=== PATIENT | female | born 1945 | race Caucasian/White ===

== ENCOUNTER → 2016-05-22 | Outpatient (CLI) | payer MEDICARE, OTHER ==
[~2016-05-22] MED LIST: /QUIN20TA OR; /QUIN20TA PO; /THIA10TA OR; /TIOT18INH INH; ACET65TA OR; ALBU17IN INH; ASPI81TA45 OR; ASPI81TA85 PO; ATEN50TA2 OR; CALA120T2 OR; CEFT500T OR; CIPR500T3 PO; DELTASONE PO; DITR1TAB PO; DRIS50002 PO; DRISDOL PO; ESTR62CR PV; FLAG500T PO; FOLI1TAB OR; FOLI1TAB2 PO; K-TA10TA2 PO; KEFL500C7 PO; LEVA500T PO; LEVO100T OR; LEVO100T7 OR; LEVO112T2 PO; MAGN400T5 PO; NORCOBULK PO; POTA10CA2 OR; PRED10TA PO; PROA1AER INH; PULM0.5S IN; PULM90IN INH; QUIN40TA5 PO; SIMV20TA2 OR; SIMV20TA2 PO; SM I100T OR; THERGRAN PO; TIOT18INH INH; VENTOLIN ROTAHALER INH; VERA240C PO; VITA100T2 PO; VITAMIN D50000 UNT OR; ZOCO5TAB OR
[2016-05-22 14:09] LABS: ALBUMIN 3.3 GM/DL (3.2-5.2); ALBUMIN/GLOBULIN RATIO 1.32 (1.00-1.93); BILIRUBIN,TOTAL 0.4 MG/DL (0.2-1.0); CREATININE FOR GFR 1.15 MG/DL (0.55-1.02); FREE T4 1.41 NG/DL (0.76-1.46); GLOMERULAR FILTRATION RATE 49.5 (>39); POTASSIUM SERUM 4.4 MEQ/L (3.5-5.1); TOTAL PROTEIN 5.8 GM/DL (6.4-8.2)
== END ==
LOC: M SMT 08:45
PROVIDERS: ATTEND Emergency Medicine
DX: I10 Essential (primary) hypertension (principal); E78.2 Mixed hyperlipidemia; E03.9 Hypothyroidism, unspecified; E55.9 Vitamin D deficiency, unspecified

== ENCOUNTER 2016-06-03 09:09 | Emergency (ER) | payer MEDICARE, OTHER ==
[2016-06-03] MEDS ORDERED: traMADol 50 MG TAB As Ordered ONE (09:59)
--- NOTE | 2016-06-03 10:08 | EDDOCDS ---
Nurse's Notes [facility] Name: Yaritza Fernandez Age: 70 yrs Sex: Female : 1945 Arrival Date: 06/03/2016 Time: 09:09 Bed PR2 / Private MD: Andrade Kimball P. Diagnosis: Dorsalgia-Acute, Left-sided Presentation: 06/03 09:16 Presenting complaint: Patient states: Neck and shoulder pain x1 week. This is a jo3 recurring issue for pt and she was diagnosed with arthritis. Risk Factors No acute neurological deficit is noted. Adult Sepsis Screening: The patient does not have new or worsening altered mentation. Patient's respiratory rate is less than 22. Systolic blood pressure is greater than 100. Patient has a qSOFA score of 0- Negative Sepsis Screen. Suicide/Homicide risk assessment- the patient denies having any suicidal and/or homicidal ideations and does not present with any other emotional, behavioral or mental health complaints. 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 Transition of care: patient was not received from another setting of care. 09:16 Acuity: DANAY Level 4 jo3 09:16 Method Of Arrival: Walkin/Carried/Asstd jo3 Triage Assessment: 09:19 General: Appears in no apparent distress, Behavior is appropriate for age, cooperative, jo3 pleasant. Pain: Pain currently is 10 out of 10 on a pain scale. Neurological: No deficits noted. Level of Consciousness is awake, alert, Oriented to person, place, time. Respiratory: Airway is patent Respiratory effort is even, unlabored. Derm: Skin is pink, warm & dry. Musculoskeletal: Reports left neck and shoulder pain which is recurring. Historical: - Allergies: Ambien (Anaphylaxis); SULFA (SULFONAMIDES) (Hives); TETRACYCLINES (Swelling); - Home Meds: 1. aspirin 81 mg Oral TbEC 1 tab once daily 2. folic acid 1 mg Oral tab once daily 3. levothyroxine 112 mcg Oral cap once daily 4. Mag 64 64 mg oral TbER twice a day 5. oxybutynin chloride 10 mg Oral TG24 once daily 6. Premarin 0.625 mg/gram Vagl crea weekly 7. pro Air 90 mcg inhaler 2 puffs every 4 hours as needed 8. Pulmicort Turbuhaler 1 puff Inhl twice a day 9. quinapril 20 mg Oral tab once daily 10. simvastatin 20 mg Oral tab once daily 11. Spiriva with HandiHaler 18 mcg Inhl CpDv 1 cap once daily 12. ventolin HFA 90 mcg 2 puffs every 4 hours as needed 13. verapamil ER 120 mg daily 14. vit b1 100 mg [place] 15. [place] [address] u weekly every other week 16. meloxicam 15 mg oral tab 1 tab once daily - PMHx: Cancer, Thyroid; COPD; Hypercholesterolemia; Hypertension; Pneumonia; - PSHx: Appendectomy; thyroid removal; - Social history: Smoking status: Patient states former smoker of tobacco. No barriers to communication noted, The patient speaks fluent Kuwaiti, Speaks appropriately for age. - Family history: Not pertinent. - : The pt / caregiver states he / she is not on anticoagulants. Home medication list is obtained from the patient. - Exposure Risk Screening:: None identified. Screenin:02 Screening information is obtained from the patient. Fall risk: No risks identified. kr3 Assistance ADL's: requires no assistance with activities of daily living. Abuse/DV Screen: The patient / caregiver reports he/she is: not in a situation that causes fear, pain or injury. Nutritional screening: No deficits noted. home support is adequate. 10:08 Advance Directives: Currently, there is no health care proxy. kr3 Assessment: 10:01 Reassessment: Patient appears in no apparent distress at this time. Pain: Location: kr3 neck into left shoulder. Neurological: No deficits noted. Level of Consciousness is awake, alert, Gait is steady. Cardiovascular: Chest pain is denied. Respiratory: Respiratory effort is even, unlabored. Derm: Skin is pink, warm & dry. 10:01 General: Appears in no apparent distress, uncomfortable, Behavior is appropriate for ttb age, cooperative, pleasant. General: meds given per orders. Primary RN aware. Neurological: Level of Consciousness is awake, alert. Cardiovascular: Chest pain is denied. Respiratory: Airway is patent Respiratory effort is even, unlabored. Derm: Skin is normal. Musculoskeletal: Range of motion limited in left shoulder d/t pain and stiffness. Vital Signs: 09:12 BP 158 / 75 LA Sitting (auto/reg); Pulse 72 LA; Resp 18 S; Temp 96.1(O); Pulse Ox 99% mt4 on R/A; Weight 63.5 kg (R); Height 5 ft. 4 in. (162.56 cm) (R); Pain 02/19; 09:12 Body Mass Index 24.03 (63.50 kg, 162.56 cm) mt4 Vitals: 09:12 Log In Time: June 03, 2016 at 09:09. mt4 ED Course: 09:12 Patient visited by Jane Hadley. mt4 09:12 Andrade Kimball is Private Physician. mt4 09:12 Patient moved to Waiting mt4 09:14 Patient moved to Pre RCE mt4 09:18 Triage Initiated jo3 09:21 Patient visited by Sunita Rooney RN. jo3 09:21 Patient moved to Triage 1 jo3 09:24 Dilma Mcgarry PA-C is PHCP. ef1 09:24 Alton Pires MD is Attending Physician. ef1 09:24 Patient visited by Dilma Mcgarry PA-C. ef1 09:35 Patient moved to PR2 / kr3 09:45 The patient / caregiver is instructed regarding the plan of care and ED course. kr3 Accompanied by Friend, Patient has correct armband on for positive identification. 09:45 No IV's were initiated during this patient's visit. No procedures done that require kr3 assistance. EKG done. (by ED staff). Reviewed by Dilma Mcgarry PA-C. 09:55 Patient visited by Dilma Mcgarry PA-C. ef1 10:01 Andrade Kimball is Referral Physician. ef1 10:01 [facility] ef1 10:01 [facility] Payment Agreement was scanned into [email or web address] and attached to record. lg Administered Medications: 10:01 Drug: traMADol 50 mg [tramadol 50 mg tablet (1 tabs)] Route: PO; ttb 10:04 Follow up: Response: Confirmed pt not driving.; Pt left department before re-evaluation kr3 is appropriate Order Results: There are currently no results for this order. Outcome: 10:01 Discharge ordered by Provider. ef1 10:02 No special radiology studies were completed. kr3 10:07 Discharge Assessment: patient administered narcotics - yes. Pt provided with safe kr3 discharge. The following High Risk Discharge criteria are identified: None. Discharged to home ambulatory, with friend. Condition: stable. Discharge instructions given to patient, Instructed on discharge instructions, follow up and referral plans. medication usage, no driving heavy equipment, no drinking with medication, Demonstrated understanding of instructions, medications, Pt was receptive of discharge instructions/ teaching. Prescriptions given X 1. Property sent home with patient. 10:08 Patient left the ED. kr3 Signatures: Lesia Roldan, Reg Reg lg Suyapa Lentz,RN RN kr3 Sunita Rooney,RN RN syd3 Jane Hadley mt4 Dilma Mcgarry, PA-C PA-C ef1 Mayra Suárez, RN RN ttb MTDD
--- NOTE | 2016-06-03 10:08 | EDDOCDS ---
Physician Documentation [facility] Name: Yaritza Fernandez Age: 70 yrs Sex: Female : 1945 Arrival Date: 06/03/2016 Time: 09:09 Bed PR2 / Private MD: Andrade Kimball P. Disposition: 06/03/16 10:01 Discharged to Home/Self Care. Impression: Dorsalgia - Acute, Left-sided. - Condition is Stable. - Discharge Instructions: Back Pain, Adult, [id number]. - Prescriptions for Tramadol 50 mg Oral Tablet - take 0.5 tablet by ORAL route 4 times per day MDD: 2 tabs; 10 tablet. - Medication Reconciliation, Local Pharmacy Hours form. - Follow up: Andrade Kimball; When: 1 - 2 days; Reason: Recheck today's complaints, Continuance of care. Follow up: Emergency Department; Reason: Worsening of conditions. Follow up: [facility]; When: Call to arrange an appointment; Reason: Further diagnostic work-up, Recheck today's complaints, Continuance of care. - Problem is new. - Symptoms have improved. Historical: - Allergies: Ambien (Anaphylaxis); SULFA (SULFONAMIDES) (Hives); TETRACYCLINES (Swelling); - Home Meds: 1. aspirin 81 mg Oral TbEC 1 tab once daily 2. folic acid 1 mg Oral tab once daily 3. levothyroxine 112 mcg Oral cap once daily 4. Mag 64 64 mg oral TbER twice a day 5. oxybutynin chloride 10 mg Oral TG24 once daily 6. Premarin 0.625 mg/gram Vagl crea weekly 7. pro Air 90 mcg inhaler 2 puffs every 4 hours as needed 8. Pulmicort Turbuhaler 1 puff Inhl twice a day 9. quinapril 20 mg Oral tab once daily 10. simvastatin 20 mg Oral tab once daily 11. Spiriva with HandiHaler 18 mcg Inhl CpDv 1 cap once daily 12. ventolin HFA 90 mcg 2 puffs every 4 hours as needed 13. verapamil ER 120 mg daily 14. vit b1 100 mg [place]. [place] [address] u weekly every other week 16. meloxicam 15 mg oral tab 1 tab once daily - PMHx: Cancer, Thyroid; COPD; Hypercholesterolemia; Hypertension; Pneumonia; - PSHx: Appendectomy; thyroid removal; - Social history: Smoking status: Patient states former smoker of tobacco. No barriers to communication noted, The patient speaks fluent Occitan, Speaks appropriately for age. - Family history: Not pertinent. - : The pt / caregiver states he / she is not on anticoagulants. Home medication list is obtained from the patient. - Exposure Risk Screening:: None identified. Vital Signs: 06/03 09:12 BP 158 / 75 LA Sitting (auto/reg); Pulse 72 LA; Resp 18 S; Temp 96.1(O); Pulse Ox 99% mt4 on R/A; Weight 63.5 kg / 139.99 lbs (R); Height 5 ft. 4 in. (162.56 cm) (R); Pain 02/19; 09:12 Body Mass Index 24.03 (63.50 kg, 162.56 cm) mt4 MDM: 09:35 ECG WITH READING ER PHYS+CARDIAG ordered. EDMS 09:50 Financial registration complete. lg 09:55 traMADol 50 mg PO once ordered. ef1 10:01 [facility] Payment Agreement was scanned into [employer] and attached to record. lg Administered Medications: 10:01 Drug: traMADol 50 mg [tramadol 50 mg tablet (1 tabs)] Route: PO; ttb 10:04 Follow up: Response: Confirmed pt not driving.; Pt left department before re-evaluation kr3 is appropriate Signatures: Dispatcher [employer] EDVA Lesia Roldan, Reg Reg lg Suyapa Lentz RN RN kr3 Sunita Rooney RN RN syd3 Dilma Mcgarry PA-C PA-C ef1 Mayra Suárez RN ttb The chart was reviewed and I authenticate all verbal orders and agree with the evaluation and treatment provided.Attachments: 10:01 [facility] Payment Agreement lg MTDD
--- NOTE | 2016-06-03 13:14 | ECGEPIP ---
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
--- NOTE | 2016-06-05 11:09 | EDDOCDS ---
Physician Documentation [facility] Name: Yaritza Fernandez Age: 70 yrs Sex: Female : 1945 Arrival Date: 06/03/2016 Time: 09:09 Bed PR2 / Private MD: Andrade Kimball P. Disposition: 06/03/16 10:01 Discharged to Home/Self Care. Impression: Dorsalgia - Acute, Left-sided. - Condition is Stable. - Discharge Instructions: Back Pain, Adult, [id number]. - Prescriptions for Tramadol 50 mg Oral Tablet - take 0.5 tablet by ORAL route 4 times per day MDD: 2 tabs; 10 tablet. - Medication Reconciliation, Local Pharmacy Hours form. - Follow up: Andrade Kimball; When: 1 - 2 days; Reason: Recheck today's complaints, Continuance of care. Follow up: Emergency Department; Reason: Worsening of conditions. Follow up: [facility]; When: Call to arrange an appointment; Reason: Further diagnostic work-up, Recheck today's complaints, Continuance of care. - Problem is new. - Symptoms have improved. Historical: - Allergies: Ambien (Anaphylaxis); SULFA (SULFONAMIDES) (Hives); TETRACYCLINES (Swelling); - Home Meds: 1. aspirin 81 mg Oral TbEC 1 tab once daily 2. folic acid 1 mg Oral tab once daily 3. levothyroxine 112 mcg Oral cap once daily 4. Mag 64 64 mg oral TbER twice a day 5. oxybutynin chloride 10 mg Oral TG24 once daily 6. Premarin 0.625 mg/gram Vagl crea weekly 7. pro Air 90 mcg inhaler 2 puffs every 4 hours as needed 8. Pulmicort Turbuhaler 1 puff Inhl twice a day 9. quinapril 20 mg Oral tab once daily 10. simvastatin 20 mg Oral tab once daily 11. Spiriva with HandiHaler 18 mcg Inhl CpDv 1 cap once daily 12. ventolin HFA 90 mcg 2 puffs every 4 hours as needed 13. verapamil ER 120 mg daily 14. vit b1 100 mg [place] 15. [place] [address] u weekly every other week 16. meloxicam 15 mg oral tab 1 tab once daily - PMHx: Cancer, Thyroid; COPD; Hypercholesterolemia; Hypertension; Pneumonia; - PSHx: Appendectomy; thyroid removal; - Social history: Smoking status: Patient states former smoker of tobacco. No barriers to communication noted, The patient speaks fluent Yoruba, Speaks appropriately for age. - Family history: Not pertinent. - : The pt / caregiver states he / she is not on anticoagulants. Home medication list is obtained from the patient. - Exposure Risk Screening:: None identified. Vital Signs: 06/03 09:12 BP 158 / 75 LA Sitting (auto/reg); Pulse 72 LA; Resp 18 S; Temp 96.1(O); Pulse Ox 99% mt4 on R/A; Weight 63.5 kg / 139.99 lbs (R); Height 5 ft. 4 in. (162.56 cm) (R); Pain 02/19; 09:12 Body Mass Index 24.03 (63.50 kg, 162.56 cm) mt4 MDM: 09:35 ECG WITH READING ER PHYS+CARDIAG ordered. EDMS 09:50 Financial registration complete. lg 09:55 traMADol 50 mg PO once ordered. ef1 10:01 [facility] Payment Agreement was scanned into [employer] and attached to record. lg 17:21 ECG/EKG was scanned into [employer] and attached to record. kf3 20:09 T-Sheet-- Draft Copy was scanned into [employer] and attached to record. klr Administered Medications: 10:01 Drug: traMADol 50 mg [tramadol 50 mg tablet (1 tabs)] Route: PO; ttb 10:04 Follow up: Response: Confirmed pt not driving.; Pt left department before re-evaluation kr3 is appropriate Signatures: Dispatcher [employer] EDMD Lesia Roldan, Reg Reg lg Suyapa LentzRN RN kr3 Sunita Rooney RN RN syd3 Jimi Powell, Reg Reg kf3 Dilma Mcgarry PA-C PA-C ef1 Gail Darden Teresa RN ttb The chart was reviewed and I authenticate all verbal orders and agree with the evaluation and treatment provided.Attachments: 10:01 [facility] Payment Agreement lg 17:21 ECG/EKG kf3 20:09 T-Sheet-- Draft Copy klr Chart Complete MTDD
--- NOTE | 2016-06-05 11:09 | EDDOCDS ---
Physician Documentation [facility] Name: Yaritza Fernandez Age: 70 yrs Sex: Female : 1945 Arrival Date: 06/03/2016 Time: 09:09 Bed PR2 / Private MD: Andrade Kimball P. Disposition: 06/03/16 10:01 Discharged to Home/Self Care. Impression: Dorsalgia - Acute, Left-sided. - Condition is Stable. - Discharge Instructions: Back Pain, Adult, [id number]. - Prescriptions for Tramadol 50 mg Oral Tablet - take 0.5 tablet by ORAL route 4 times per day MDD: 2 tabs; 10 tablet. - Medication Reconciliation, Local Pharmacy Hours form. - Follow up: Andrade Kimball; When: 1 - 2 days; Reason: Recheck today's complaints, Continuance of care. Follow up: Emergency Department; Reason: Worsening of conditions. Follow up: [facility]; When: Call to arrange an appointment; Reason: Further diagnostic work-up, Recheck today's complaints, Continuance of care. - Problem is new. - Symptoms have improved. Historical: - Allergies: Ambien (Anaphylaxis); SULFA (SULFONAMIDES) (Hives); TETRACYCLINES (Swelling); - Home Meds: 1. aspirin 81 mg Oral TbEC 1 tab once daily 2. folic acid 1 mg Oral tab once daily 3. levothyroxine 112 mcg Oral cap once daily 4. Mag 64 64 mg oral TbER twice a day 5. oxybutynin chloride 10 mg Oral TG24 once daily 6. Premarin 0.625 mg/gram Vagl crea weekly 7. pro Air 90 mcg inhaler 2 puffs every 4 hours as needed 8. Pulmicort Turbuhaler 1 puff Inhl twice a day 9. quinapril 20 mg Oral tab once daily 10. simvastatin 20 mg Oral tab once daily 11. Spiriva with HandiHaler 18 mcg Inhl CpDv 1 cap once daily 12. ventolin HFA 90 mcg 2 puffs every 4 hours as needed 13. verapamil ER 120 mg daily 14. vit b1 100 mg [place]. [place] [address] u weekly every other week 16. meloxicam 15 mg oral tab 1 tab once daily - PMHx: Cancer, Thyroid; COPD; Hypercholesterolemia; Hypertension; Pneumonia; - PSHx: Appendectomy; thyroid removal; - Social history: Smoking status: Patient states former smoker of tobacco. No barriers to communication noted, The patient speaks fluent Swedish, Speaks appropriately for age. - Family history: Not pertinent. - : The pt / caregiver states he / she is not on anticoagulants. Home medication list is obtained from the patient. - Exposure Risk Screening:: None identified. Vital Signs: 06/03 09:12 BP 158 / 75 LA Sitting (auto/reg); Pulse 72 LA; Resp 18 S; Temp 96.1(O); Pulse Ox 99% mt4 on R/A; Weight 63.5 kg / 139.99 lbs (R); Height 5 ft. 4 in. (162.56 cm) (R); Pain 02/19; 09:12 Body Mass Index 24.03 (63.50 kg, 162.56 cm) mt4 MDM: 09:35 ECG WITH READING ER PHYS+CARDIAG ordered. EDMS 09:50 Financial registration complete. lg 09:55 traMADol 50 mg PO once ordered. ef1 10:01 [facility] Payment Agreement was scanned into [employer] and attached to record. lg 17:21 ECG/EKG was scanned into [employer] and attached to record. kf3 20:09 T-Sheet-- Draft Copy was scanned into [employer] and attached to record. klr Administered Medications: 10:01 Drug: traMADol 50 mg [tramadol 50 mg tablet (1 tabs)] Route: PO; ttb 10:04 Follow up: Response: Confirmed pt not driving.; Pt left department before re-evaluation kr3 is appropriate Signatures: Dispatcher [employer] EDDE Lesia Roldan, Reg Reg lg Suyapa LentzRN RN kr3 Sunita Rooney RN RN syd3 Jimi Powell, Reg Reg kf3 Dilma Mcgarry PA-C PA-C ef1 Gail Darden Teresa RN ttb The chart was reviewed and I authenticate all verbal orders and agree with the evaluation and treatment provided.Attachments: 10:01 [facility] Payment Agreement lg 17:21 ECG/EKG kf3 20:09 T-Sheet-- Draft Copy klr Chart Complete MTDD
--- NOTE | 2016-06-05 11:09 | EDDOCDS ---
Nurse's Notes [facility] [place] [facility] Name: Yaritza Fernandez Age: 70 yrs Sex: Female : 1945 Arrival Date: 06/03/2016 Time: 09:09 Bed PR2 / Private MD: Andrade Kimball P. Diagnosis: Dorsalgia-Acute, Left-sided Presentation: 06/03 09:16 Presenting complaint: Patient states: Neck and shoulder pain x1 week. This is a jo3 recurring issue for pt and she was diagnosed with arthritis. Risk Factors No acute neurological deficit is noted. Adult Sepsis Screening: The patient does not have new or worsening altered mentation. Patient's respiratory rate is less than 22. Systolic blood pressure is greater than 100. Patient has a qSOFA score of 0- Negative Sepsis Screen. Suicide/Homicide risk assessment- the patient denies having any suicidal and/or homicidal ideations and does not present with any other emotional, behavioral or mental health complaints. 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 Transition of care: patient was not received from another setting of care. 09:16 Acuity: DANAY Level 4 jo3 09:16 Method Of Arrival: Walkin/Carried/Asstd jo3 Triage Assessment: 09:19 General: Appears in no apparent distress, Behavior is appropriate for age, cooperative, jo3 pleasant. Pain: Pain currently is 10 out of 10 on a pain scale. Neurological: No deficits noted. Level of Consciousness is awake, alert, Oriented to person, place, time. Respiratory: Airway is patent Respiratory effort is even, unlabored. Derm: Skin is pink, warm & dry. Musculoskeletal: Reports left neck and shoulder pain which is recurring. Historical: - Allergies: Ambien (Anaphylaxis); SULFA (SULFONAMIDES) (Hives); TETRACYCLINES (Swelling); - Home Meds: 1. aspirin 81 mg Oral TbEC 1 tab once daily 2. folic acid 1 mg Oral tab once daily 3. levothyroxine 112 mcg Oral cap once daily 4. Mag 64 64 mg oral TbER twice a day 5. oxybutynin chloride 10 mg Oral TG24 once daily 6. Premarin 0.625 mg/gram Vagl crea weekly 7. pro Air 90 mcg inhaler 2 puffs every 4 hours as needed 8. Pulmicort Turbuhaler 1 puff Inhl twice a day 9. quinapril 20 mg Oral tab once daily 10. simvastatin 20 mg Oral tab once daily 11. Spiriva with HandiHaler 18 mcg Inhl CpDv 1 cap once daily 12. ventolin HFA 90 mcg 2 puffs every 4 hours as needed 13. verapamil ER 120 mg daily 14. vit b1 100 mg daily 15. [place] [id number] u weekly every other week 16. meloxicam 15 mg oral tab 1 tab once daily - PMHx: Cancer, Thyroid; COPD; Hypercholesterolemia; Hypertension; Pneumonia; - PSHx: Appendectomy; thyroid removal; - Social history: Smoking status: Patient states former smoker of tobacco. No barriers to communication noted, The patient speaks fluent Indonesian, Speaks appropriately for age. - Family history: Not pertinent. - : The pt / caregiver states he / she is not on anticoagulants. Home medication list is obtained from the patient. - Exposure Risk Screening:: None identified. Screenin:02 Screening information is obtained from the patient. Fall risk: No risks identified. kr3 Assistance ADL's: requires no assistance with activities of daily living. Abuse/DV Screen: The patient / caregiver reports he/she is: not in a situation that causes fear, pain or injury. Nutritional screening: No deficits noted. home support is adequate. 10:08 Advance Directives: Currently, there is no health care proxy. kr3 Assessment: 10:01 Reassessment: Patient appears in no apparent distress at this time. Pain: Location: kr3 neck into left shoulder. Neurological: No deficits noted. Level of Consciousness is awake, alert, Gait is steady. Cardiovascular: Chest pain is denied. Respiratory: Respiratory effort is even, unlabored. Derm: Skin is pink, warm & dry. 10:01 General: Appears in no apparent distress, uncomfortable, Behavior is appropriate for ttb age, cooperative, pleasant. General: meds given per orders. Primary RN aware. Neurological: Level of Consciousness is awake, alert. Cardiovascular: Chest pain is denied. Respiratory: Airway is patent Respiratory effort is even, unlabored. Derm: Skin is normal. Musculoskeletal: Range of motion limited in left shoulder d/t pain and stiffness. Vital Signs: 09:12 BP 158 / 75 LA Sitting (auto/reg); Pulse 72 LA; Resp 18 S; Temp 96.1(O); Pulse Ox 99% mt4 on R/A; Weight 63.5 kg (R); Height 5 ft. 4 in. (162.56 cm) (R); Pain 02/19; 09:12 Body Mass Index 24.03 (63.50 kg, 162.56 cm) mt4 Vitals: 09:12 Log In Time: June 03, 2016 at 09:09. mt4 ED Course: 09:12 Patient visited by Jane Hadley. mt4 09:12 Andrade Kimball is Private Physician. mt4 09:12 Patient moved to Waiting mt4 09:14 Patient moved to Pre RCE mt4 09:18 Triage Initiated jo3 09:21 Patient visited by Sunita Rooney RN. jo3 09:21 Patient moved to Triage 1 jo3 09:24 Dilma Mcgarry PA-C is PHCP. ef1 09:24 Alton Pires MD is Attending Physician. ef1 09:24 Patient visited by Dilma Mcgarry PA-C. ef1 09:35 Patient moved to PR2 / kr3 09:45 The patient / caregiver is instructed regarding the plan of care and ED course. kr3 Accompanied by Friend, Patient has correct armband on for positive identification. 09:45 No IV's were initiated during this patient's visit. No procedures done that require kr3 assistance. EKG done. (by ED staff). Reviewed by Dilma Mcgarry PA-C. 09:55 Patient visited by Dilma Mcgarry PA-C. ef1 10:01 Andrade Kimball is Referral Physician. ef1 10:01 [facility]. ef1 10:01 [facility] Payment Agreement was scanned into [employer]way and attached to record. lg 13:43 EKG-ADULT Returned. EDMS 17:21 ECG/EKG was scanned into [employer] and attached to record. kf3 20:09 T-Sheet-- Draft Copy was scanned into [employer]way and attached to record. klr Administered Medications: 10:01 Drug: traMADol 50 mg [tramadol 50 mg tablet (1 tabs)] Route: PO; ttb 10:04 Follow up: Response: Confirmed pt not driving.; Pt left department before re-evaluation kr3 is appropriate Order Results: Radiology Order: EKG-ADULT Test: EKG-ADULT REASON FOR EXAMINATION: Left arm/neck pain; Stationary ECG Study; [facility] - ED; ; Test Date: 2016-06-03; Pat Name: YARITZA FERNANDEZ Department:; Room: -; Gender: F Change Manager: blayne; : 1945 Requested By: Dilma Mcgarry PA-C; Order Number: [id number] Reading MD: Grace Antonio; Measurements; Intervals Stearns; Rate: 66 P: 73; NH: 153 QRS: 74; QRSD: 78 T: 73; QT: 366; QTc: 383; Interpretive Statements; SINUS RHYTHM; LOW QRS VOLTAGE IN EXTREMITY LEADS; PRWP; NSTTW ABNORMALITY; DECREASED ECTOPY/DECREASED RATE 12/26/15; Electronically Signed On 06-03-2016 13:14:36 EST by Grace Antonio; Outcome: 10:01 Discharge ordered by Provider. ef1 10:02 No special radiology studies were completed. kr3 10:07 Discharge Assessment: patient administered narcotics - yes. Pt provided with safe kr3 discharge. The following High Risk Discharge criteria are identified: None. Discharged to home ambulatory, with friend. Condition: stable. Discharge instructions given to patient, Instructed on discharge instructions, follow up and referral plans. medication usage, no driving heavy equipment, no drinking with medication, Demonstrated understanding of instructions, medications, Pt was receptive of discharge instructions/ teaching. Prescriptions given X 1. Property sent home with patient. 10:08 Patient left the ED. kr3 Signatures: Dispatcher [employer] EDLesia Cagle, Reg Reg lg Suyapa Lentz RN RN kr3 Sunita Rooney RN RN syd3 Jimi Powell, Reg Reg kf3 Jane Hadley mt4 Dilma Mcgarry PA-C PA-C ef1 Mayra Sáurez RN RN ttb Redder, Kathie klr Chart Complete MTDD
--- NOTE | 2016-06-11 08:33 | IPN ---
DATE: 06/10/2016 The patient is seen and examined at the bedside. Chart has been reviewed. The patient's blood pressure remains decreased at 82 systolic. She otherwise denies any lightheadedness, dizziness, palpitations, near syncopal episodes. No chest pain, pressure or tightness. Despite 2.5 liters of IV fluids, the patient's urine output has continued to be concentrated. She has had no fever or chills overnight. Denies any cough. Complains of dysuria, urgency, frequency, prior history of recurrent urinary tract infection with Escherichia (E) coli and Klebsiella resistant to ampicillin and nitrofurantoin, sensitive to Levaquin and ceftriaxone. Current temperature is 96.6, pulse 90, respiratory rate 20, previous blood pressure was 82/52. Responding to 2.5 liters of IV fluids, currently 121/70. 92% on room air. GENERAL: The patient is awake, alert, oriented. Answering questions appropriately. No respiratory distress. Lying with one pillow on the bed. The patient has no jugular venous distention (JVD). No thyromegaly. LUNGS: Clear to auscultation with no wheezing, rales or rhonchi. HEART: S1, S2. Irregular. ABDOMEN: Soft, nontender, nondistended. EXTREMITIES: No pitting edema. LABORATORY DATA: CBC and metabolic panel have been reviewed. ASSESSMENT AND PLAN: This is a 70-year-old female with a history of recurrent urinary tract infections with Escherichia (E) coli and Klebsiella, chronic obstructive pulmonary disease (COPD), hypothyroidism, cor pulmonale, hyperlipidemia, hypertension, mild to moderate mitral valve insufficiency, history of multiple focal atrial tachycardia, questionable paroxysmal atrial fibrillation, tonsillectomy, adenoidectomy, thyroidectomy, appendectomy, who presented to the emergency room with complaints of "not feeling well." She was found to have acute on chronic renal failure, as well as abnormal urinalysis. THe patient was seen by primary care physician on and given Levaquin for urinary tract infection. Blood pressure in the office at that time was 88/44. Current issues are: 1. Sepsis with tachycardia, urinary tract infection, hypotension. The patient is fluid resuscitated with normal saline at the bedside and appears to be improving well with improving creatinine and blood pressure. Treat underlying condition with ceftriaxone for urinary tract infection. Await blood cultures, sputum culture. Chest x-ray is unremarkable for acute infiltrate. 2. Recurrent urinary tract infection, prior urine culture showing Klebsiella and E coli sensitive to ceftriaxone. Continue with the same treatment. Full supportive care with intravenous fluids. 3. Hypotension secondary to sepsis from urinary tract infection. Rule out other etiology. TSH is normal. The patient is dehydrated, therefore IV fluids have been given and creatinine is improving. Treat for an infection for severe sepsis secondary to infection, as well as check cardiac markers and 2-D echo regarding hypotension. Does not appear to have any acute ischemia on EKG. Troponin remains negative. No upper GI bleed, hematemesis or coffee ground emesis complaints. 4. Acute on chronic renal failure secondary to severe sepsis and dehydration. Currently, on intravenous fluid. If needed, vasopressors. Central line has been requested. Dr. Christian has been consulted. 5. Dehydration. 6. Hypernatremia most likely secondary to dehydration. We will change to intravenous fluids to half normal saline if persistently hypernatremic. 7. Metabolic acidosis, most likely secondary to renal failure and infection. 8. Abnormal EKG. Recheck 12-lead EKG. Most likely MAT due to chronic obstructive pulmonary disease (COPD). No acute respiratory distress. 9. COPD. No respiratory complaints. 10. Cor pulmonale. Currently euvolemic. Monitor for decompensation due to recent IV fluid hydration. 11. Hypothyroidism. Continue Synthroid. 12. Hyperlipidemia. Continue on antihyperlipidemics. 13. Incidental finding of splenomegaly. check hepatitis, monoscreen, cristina, antismith ab, dsdna ab, cmv, liver us w doppler to rule out thrombosis, ct chest rule out adenopathy, lymphoma, sarcoids, gary level. per dr shun neal, oncologist chain maker loom control, may benefit from flow cytometry and bone marrow biopsy as outpatient. no inpatient need for hematology consult. will refer to hematology at discharge. MINOO
== END 2016-06-03 10:08 | disposition home or self-care (01) ==
LOC: M ED 09:09
DX: M54.2 Cervicalgia (principal); M54.6 Pain in thoracic spine; J44.9 Chronic obstructive pulmonary disease, unspecified; E78.00 Pure hypercholesterolemia, unspecified; I10 Essential (primary) hypertension; Z87.891 Personal history of nicotine dependence; Z85.850 Personal history of malignant neoplasm of thyroid; Z79.82 Long term (current) use of aspirin; Z79.899 Other long term (current) drug therapy; Z88.1 Allergy status to other antibiotic agents; Z88.2 Allergy status to sulfonamides; Z88.8 Allergy status to other drugs, medicaments and biological substances

== ENCOUNTER 2016-06-09 17:10 | Inpatient (IN) | payer MEDICARE, OTHER ==
[~2016-06-09] VITALS: Ht 162.6 cm; Wt 75.3 kg
[2016-06-09 17:56] LABS: BASO % 0.1 % (0.0-1.0); EOS % 0.1 % (0.0-3.0); LARGE UNSTAINED CELL # 0.6 K/mm3 (0.0-0.4); LARGE UNSTAINED CELL % 4.8 % (0.0-4.0); LYMPH # 1.3 K/mm3 (1.5-4.5); LYMPH % 10.7 % (24.0-44.0); MEAN CORPUSCULAR HEMOGLOBIN 30.4 pg (27.0-33.0); MEAN CORPUSCULAR HGB CONC 32.4 g/dl (32.0-36.5); MEAN CORPUSCULAR VOLUME 93.8 fl (80.0-96.0); MONO # 0.7 K/mm3 (0.0-0.8); NEUTROPHILS # 9.5 K/mm3 (1.8-7.7); NEUTROPHILS % 78.2 % (36.0-66.0); RED CELL DISTRIBUTION WIDTH 13.4 % (11.5-14.5); WHITE BLOOD COUNT 12.1 K/mm3 (4.0-10.0)
[2016-06-09 18:21] LABS: ALBUMIN/GLOBULIN RATIO 1.07 (1.00-1.93); ALKALINE PHOSPHATASE 52 U/L (45-117); ALT/SGPT 9 U/L (12-78); ANION GAP 14 MEQ/L (8-16); AST/SGOT 3 U/L (15-37); BILIRUBIN,DIRECT < 0.1 MG/DL (0.0-0.2); BILIRUBIN,TOTAL 0.3 MG/DL (0.2-1.0); BLOOD UREA NITROGEN 112 MG/DL (7-18); CALCIUM LEVEL 10.2 MG/DL (8.8-10.2); CARBON DIOXIDE LEVEL 18 MEQ/L (21-32); CHLORIDE LEVEL 111 MEQ/L (98-107); CREATININE FOR GFR 2.45 MG/DL (0.55-1.02); GLOMERULAR FILTRATION RATE 20.7 (>39); GLUCOSE, FASTING 140 MG/DL (83-110); POTASSIUM SERUM 3.6 MEQ/L (3.5-5.1); SODIUM LEVEL 143 MEQ/L (136-145); TOTAL PROTEIN 5.8 GM/DL (6.4-8.2)
[2016-06-09 18:23] LABS: PLATELET COUNT, AUTOMATED 82 k/mm3 (150-450)
[2016-06-09] MEDS: BUDESONIDE 0.5 MG/2 ML INHALATION SUSPENSION INH SCH (20:00)
--- NOTE | 2016-06-09 20:00 | REPUSA ---
CLINICAL HISTORY: Abdominal pain. TECHNIQUE: Multiple axial, sagittal and coronal CT images were obtained through the abdomen and pelvi s without administration of oral or IV contrast material. COMMENTS: The liver is of uniform attenuation without mass or defect. There is no intra or extrahepatic biliary ductal dilatation. The spleen is massively enlarged. The gallbladder is within normal limits. The pa ncreas is of normal contour and attenuation characteristics. There is no evidence of adrenal mass. The kidneys are normal in size, shape and configuration. No renal or ureteral calculi are identified. There is no hydroureter or hydronephrosis. There is no evidence for appendicitis. There is no bowel wall thickening. No evidence for small or la rge bowel obstruction. There is no evidence of abdominal ascites or lymphadenopathy. There is no evidence of intrinsic or extrinsic bladder mass. There is no pelvic ascites or lymphadeno jorge. The uterus and ovaries are atrophic. Images of the lung bases show no evidence of pleural or parenchymal mass. There are no pleural effusi ons. The bony structures are free of lytic or blastic lesions. Multilevel degenerative changes are seen in volving the thoracolumbar spine. Scattered calcifications are seen involving the aorta and major branches compatible with atherosclero sis. IMPRESSION: Massive splenomegaly. Otherwise unremarkable study Thank you for your kind referral of this patient.
[2016-06-09] MEDS ORDERED: ONDANSETRON 4MG/2ML VIAL (J2405) IV PRN (21:15)
[2016-06-09] MEDS ORDERED: PERCOCET 5MG/325MG TAB PO PRN (21:15)
[2016-06-09] MEDS ORDERED: ONDANSETRON 4 MG TAB (S0181) PO PRN (21:15)
[2016-06-09 21:54] LABS: INR 1.02
[2016-06-09 21:57] VITALS: BP 118/69
[2016-06-09] MEDS ORDERED: ALBUTEROL 90 MCG/ACT 8GM HFA INHALER INH PRN (22:30)
[2016-06-09] MEDS ORDERED: cefTRIAXone SOD 1 GM VIAL (J0696) As Ordered ONE (22:48)
[2016-06-09] MEDS ORDERED: APIXABAN 5 MG TAB (ELIQUIS) As Ordered ONE (22:48)
[2016-06-09] MEDS: cefTRIAXone SOD 1 GM in D5W MINI-BAG PLUS 50 ML IV SCH (22:53)
[2016-06-09] MEDS: NS 1,000 ML IV SCH (22:53)
[2016-06-09] MEDS: APIXABAN 2.5 MG TAB (ELIQUIS) PO SCH (22:54)
[2016-06-09] MEDS ORDERED: APIXABAN 2.5 MG TAB (ELIQUIS) As Ordered ONE (22:54)
--- NOTE | 2016-06-09 22:55 | HPEPDOC ---
Medical History and Physical Date of Admission Jun 09, 2016 at 21:06 History and Physical HISTORY AND PHYSICAL Date of admission: 06/09/2016 PCP: Andrade Kimball Chief complaint: Just didn't feel well HPI: 70-year-old female with COPD, hypothyroidism, hyperlipidemia, hypertension , cor pulmonale, mild to moderate mitral valve insufficiency, history of atrial tachycardia with questionable prior A. fib who presented to the emergency department because she just wasn't feeling well. She states that she has been feeling poorly for a week or so now, and saw her primary care physician on . She states at that time, he gave her Levaquin for urinary infection. She states that while she was in his office, her blood pressure was 88/44. She states that since then, she hasn't felt very well and has not had much to eat or drink. She however, denies any diarrhea or vomiting. She states that she just wasn't getting better, and today reached the point where she felt like she couldn't walk well because she felt so poorly, which is why she decided to come to the emergency department today. She also states that she noticed she hadn't urinated all day long. Past medical history: COPD, hypothyroidism, hyperlipidemia, hypertension, cor pulmonale, mild to moderate mitral valve insufficiency, history of atrial tachycardia with questionable prior A. fib Past surgical history: Tonsillectomy and adenoidectomy, thyroidectomy, appendectomy Family history: Colorectal cancer, lupus Social history: Patient states that she quit smoking approximately 10 years ago. She denies any drug use. She does state that she drinks a couple glasses of wine nightly, but has not had any since . She states that she has never before had any withdrawal symptoms when she stopped drinking for several days. Allergies: Sulfa, tetracycline, Ambien Review of systems: General: Negative for fever and chills Eyes: Negative for vision changes. Positive for ocular discharge ENT: Negative for sore throat and nose bleed Cardiovascular: Negative for chest pain and palpitations Respiratory: Positive for cough and shortness of breath GI: Positive for nausea and constipation. Negative for vomiting and diarrhea Musculoskeletal: Positive for chronic neck pain Skin: Negative for rash Neuro: Negative for headache, numbness, and tingling. Positive for dizziness Psych: Negative for suicidal ideation and depression. Endocrine: Positive for polydipsia. : Negative for dysuria. Positive for oliguria. Heme: Negative for bleeding Home meds: See below Physical exam: Vital signs: Blood pressure 124/61, HR 120s, temperature 99.0, O2 sat 96% on room air, RR 16 Gen.: awake, alert, no acute distress Eyes: Extraocular movements intact, normal sclera ENT: Dry mucous membranes Cardiovascular: tachycardic, no murmurs rubs or gallops Lungs: clear to auscultation bilaterally, no rales, rhonchi, or wheeze Abdomen: Soft, NT/ND, normal BS Musculoskeletal: normal range of motion Extremities: No peripheral edema Neuro: alert and oriented 3, normal speech, no focal deficits Psych: Normal mood with congruent affect Labs and radiology: See below BUN 112, creatinine 2.45 WBC 12 Platelets 82 Lactate within normal limits UA shows 1+ bacteria, 3+ blood, 1+ leuk esterase Urine culture and blood cultures are pending CT of the abdomen and pelvis is unremarkable other than massive splenomegaly Assessment and plan: 70-year-old female with COPD, hypothyroidism, hyperlipidemia, hypertension, cor pulmonale, mild to moderate mitral valve insufficiency, history of atrial tachycardia with questionable prior A. fib who presented to the emergency department because she just wasn't feeling well. She is admitted with a urinary infection, as well as severe dehydration causing acute kidney injury and hypotension. She also has a tachycardia, which may possibly represent an underlying atrial fibrillation. 1. Urinary infection: Patient's UA suggests a urinary infection. She is afebrile , but her white count is 12. She has recently taken Levaquin for UTI, but it has still not cleared. We will start her on Rocephin and follow-up the urine culture. We will also follow up her blood cultures. 2. Hypotension, history of chronic hypertension: I suspect that this is entirely secondary to her dehydration. Her BUN is greater than 100, and she has responded extremely quickly to fluids in the emergency department. Her blood pressure upon arrival was 80/50 one and then dropped to 66/41. However, with a liter and a half of fluid, her pressure is now 124/61. She also states that she has not urinated all day long and has hardly been eating or drinking anything. She clinically looks very well and does not appear to be septic. She also has a normal lactate. At this time, I do not suspect that this hypotension is related to any sort of sepsis or septic shock as she has recovered extremely quickly with fluids, clinically appears very well, and is obviously extremely dehydrated on exam and by lab values. At this time, we will hold her home GEORGETTE inhibitor and verapamil while we continue to hydrate her. 3. Acute kidney injury: The patient's baseline creatinine appears to be within normal limits, but her creatinine upon arrival is 2.45 with a BUN of 112. She has responded very well to IV fluids in terms of stabilization of her vitals, and at this time, we will continue normal saline and recheck her creatinine in the morning. 4. Tachycardia. The patient initially had a tachycardia to the 130-140s. The initial EKG this did not have clear P waves. She does have a history of multifocal atrial tachycardia. I looked at all the prior EKGs I could find in our EMR, and there is one, back in 2011 that also suggests a potential atrial fibrillation. At this time, I think it's quite possible that this is simply a reaction to her extreme dehydration. I will continue to hydrate her, and monitor her on telemetry. She is not currently having any chest pain and initial troponin is negative. We'll continue to trend troponins. Given her hypothyroidism, I will check a TSH and free T4 to see if her Synthroid needs to be adjusted. If this represents a true A. fib, her chads 2 vasc score warrants full anticoagulation, so at this time, I will start her on Eliquis, and hold her home baby aspirin. However, I think that we should follow her clinical course, and reevaluate her heart rhythm, to determine if she truly has A. fib, or if this is more of just a multifocal atrial tachycardia again in response to her extreme dehydration. I think it is possible that she would be able to go home without full anticoagulation. We will also check an echo. 5. Thrombocytopenia: The patient's platelets are 82. It appears that this is a chronic issue when I review her EMR. We will monitor these closely, especially since she is being started on eliquis. Of note, a CT abd/pel shows massive splenomegaly, which may represent the underlying cause. Will need follow up with PCP. 6. COPD: The patient's lungs currently sound clear. We'll continue her home albuterol, Pulmicort. 7. Hypothyroidism: Continue home Synthroid. Check TSH and free T4 given her tachycardia. 8. Hyperlipidemia: Continue home statin. DVT prophylaxis: marcos Dispo: admit as an inpatient to the service of Dr. Vanegas. CODE STATUS: Full code Vital Signs see above Laboratory Data Labs 24H Laboratory Tests 2 06/09/16 17:32: Aspartate Amino Transf (AST/SGOT) 3L, Alanine Aminotransferase (ALT/SGPT) 9L, Alkaline Phosphatase 52, Total Bilirubin 0.3, Direct Bilirubin < 0.1, Albumin 3.0L, Albumin/Globulin Ratio 1.07, Anion Gap 14, B-Type Natriuretic Peptide 293H , White Blood Count 12.1H, Red Blood Count 4.40, Hemoglobin 13.4, Hematocrit 41.2, Mean Corpuscular Volume 93.8, Mean Corpuscular Hemoglobin 30.4, Mean Corpuscular Hemoglobin Concent 32.4, Red Cell Distribution Width 13.4, Platelet Count 82L, Neutrophils (%) (Auto) 78.2H, Lymphocytes (%) (Auto) 10.7L, Monocytes (%) (Auto) 6.0H, Eosinophils (%) (Auto) 0.1, Basophils (%) (Auto) 0.1 , Neutrophils # (Auto) 9.5H, Lymphocytes # (Auto) 1.3L, Monocytes # (Auto) 0.7, Eosinophils # (Auto) 0.0, Basophils # (Auto) 0.0, Calcium Level 10.2, Glomerular Filtration Rate 20.7L, Large Unclassified Cells # 0.6H, Large Unclassified Cells % 4.8H, Prothromb Time International Ratio 1.02, Prothrombin Time 13.5, Total Protein 5.8L, Troponin I < 0.02, Urine Amorphous Sediment , Urine Appearance CLOUDYH, Urine Color YELLOW, Urine pH 5.0, Urine Specific Holder 1.013, Urine Protein 2+H, Urine Glucose (UA) 1+H, Urine Ketones NEGATIVE , Urine Urobilinogen 0.2, Urine Bilirubin NEGATIVE, Urine Leukocyte Esterase 1+H , Urine Bacteria (Auto) 1+H, Urine Blood 3+H, Urine Calcium Carbonate Cryst(Auto ) , Urine Calcium Oxalate Cryst (Auto) , Urine Calcium Phosphate Judy (Auto) , Urine Cellular Casts , Urine Cystine Crystals , Urine Granular Casts (Auto) , Urine Hyaline Casts (Auto) 0, Urine Leucine Crystals , Urine Mucus (Auto) , Urine Nitrite NEGATIVE, Urine Oval Fat Bodies (Auto) , Urine RBC (Auto) TNTCH, Urine Renal Epithelial Cells , Urine Sperm (Auto) , Urine Squamous Epithelial Cells 50, Urine Transitional Epithelial Cells , Urine Trichomonas (Auto) , Urine Triple Phosphate Cryst (Auto) , Urine Tyrosine Crystals , Urine Uric Acid Crystals (Auto) , Urine WBC (Auto) 39H, Urine Waxy Casts (Auto) , Urine Yeast- Like Cells (Auto) 06/09/16 17:33: Lactic Acid Level 1.2 06/09/16 22:15: CBC/BMP Laboratory Tests 06/09/16 17:32 Red Blood Count 4.40, Mean Corpuscular Volume 93.8, Mean Corpuscular Hemoglobin 30.4, Mean Corpuscular Hemoglobin Concent 32.4, Red Cell Distribution Width 13.4 , Neutrophils (%) (Auto) 78.2 H, Lymphocytes (%) (Auto) 10.7 L, Monocytes (%) ( Auto) 6.0 H, Eosinophils (%) (Auto) 0.1, Basophils (%) (Auto) 0.1, Neutrophils # (Auto) 9.5 H, Lymphocytes # (Auto) 1.3 L, Monocytes # (Auto) 0.7, Eosinophils # (Auto) 0.0, Basophils # (Auto) 0.0 Microbiology Microbiology 06/09/16 Blood Culture, Received Pending 06/09/16 Blood Culture, Received Pending 06/09/16 Urine Culture, Received Pending Home Medications Scheduled Aspirin (Aspir-81) 81 Mg Tab 81 MG PO DAILY Budesonide (Pulmicort Flexhaler) 90 Mcg/Act Inh 2 PUFFS INH BID Folic Acid (Folic Acid) 1 Mg Tab 1 MG PO DAILY Levothyroxine Sodium (Synthroid) 112 Mcg Tab 112 MCG PO DAILY Magnesium Oxide (Magnesium Oxide 400) 400 Mg Tab 400 MG PO DAILY Oxybutynin Chloride (Ditropan Xl) 10 Mg Tab 10 MG PO DAILY Quinapril Hcl (Quinapril HCl) 40 Mg Tab 40 MG PO DAILY PT was instructed to DC use on Sat at last appointment Simvastatin (Simvastatin) 20 Mg Tab 20 MG PO DAILY Thiamine HCl (Vitamin B-1) 100 Mg Tab 100 MG PO DAILY Tiotropium [place] Monohydrate (Spiriva Handihaler) 5 Inhalation/Inhaler Powd 1 INHALATION INH DAILY Verapamil HCl (Verapamil HCl ER) 240 Mg Cap 240 MG PO DAILY Vitamin D (Drisdol) 50,000 Unit Cap 50,000 UNIT PO Q2WK takes every other saturday Scheduled PRN Albuterol Sulfate (Proair Hfa) 108 Mcg/Act Aer 108 MCG INH PRN PRN PRN SHORTNESS OF BREATH Albuterol Sulfate (Ventolin Hfa) 200 Puff/8 Gm Aers 2 PUFF INH Q4H PRN PRN SHORTNESS OF BREATH Allergies Coded Allergies: Tetracycline (Verified Allergy, Severe, SWELLING,PEELING OF THE TONGUE, 08/17/12) Zolpidem (Unverified Allergy, Severe, respiratory distress, 03/10/14) reported by patient Sulfa Drugs (Verified Allergy, Intermediate, HIVES, 08/17/12) Sulfa Drugs Cross Reactors (Verified Allergy, Intermediate, HIVES, 08/17/12) SHIRA COOPER Jun 09, 2016 22:55
[2016-06-10] VITALS (12 sets, daily range): BP systolic 82–130; BP diastolic 50–70
[2016-06-10] MEDS ORDERED: ACETAMINOPHEN 325 MG TAB As Ordered ONE (03:48)
[2016-06-10] MEDS: ACETAMINOPHEN TAB 650MG DOSE (2X325MG) PO PRN ×3 (03:53→21:21)
[2016-06-10] MEDS ORDERED: SODIUM CHLORIDE 0.9% 1000 ML IV ONE ×3 (04:15→17:00)
[2016-06-10] MEDS: NS 1,000 ML IV SCH (04:52)
[2016-06-10] MEDS: LEVOTHYROXINE 0.112 MG TAB (112 MCG) PO SCH (05:43)
[2016-06-10 06:18] LABS: BASO # 0.1 K/mm3 (0.0-0.2); BASO % 0.5 % (0.0-1.0); EOS % 0.2 % (0.0-3.0); LARGE UNSTAINED CELL # 0.9 K/mm3 (0.0-0.4); LARGE UNSTAINED CELL % 7.4 % (0.0-4.0); LYMPH # 2.4 K/mm3 (1.5-4.5); LYMPH % 13.1 % (24.0-44.0); MEAN CORPUSCULAR HEMOGLOBIN 30.8 pg (27.0-33.0); MEAN CORPUSCULAR HGB CONC 32.3 g/dl (32.0-36.5); MEAN CORPUSCULAR VOLUME 95.4 fl (80.0-96.0); MONO # 1.2 K/mm3 (0.0-0.8); MONO % 10.3 % (0.0-5.0); NEUTROPHILS # 8.1 K/mm3 (1.8-7.7); NEUTROPHILS % 68.5 % (36.0-66.0); RED CELL DISTRIBUTION WIDTH 14.3 % (11.5-14.5); WHITE BLOOD COUNT 11.9 K/mm3 (4.0-10.0)
[2016-06-10 06:20] LABS: PLATELET COUNT, AUTOMATED 63 k/mm3 (150-450)
[2016-06-10 06:49] LABS: CREATININE FOR GFR 1.72 MG/DL (0.55-1.02); FREE T4 0.77 NG/DL (0.76-1.46); GLOMERULAR FILTRATION RATE 31.1 (>39); MAGNESIUM LEVEL 1.9 MG/DL (1.8-2.4); POTASSIUM SERUM 3.5 MEQ/L (3.5-5.1)
[2016-06-10 07:07] LABS: CALCIUM LEVEL 8.6 MG/DL (8.8-10.2)
[2016-06-10 07:35] LABS: REASON FOR REVIEW COMPREHENSIVE REVIEW
[2016-06-10] MEDS: TIOTROPIUM INHALER/CAPSULE (SPIRIVA) INH SCH (08:28)
[2016-06-10] MEDS: BUDESONIDE 0.5 MG/2 ML INHALATION SUSPENSION INH SCH ×2 (08:28→20:18)
[2016-06-10] MEDS ORDERED: QUINAPRIL 20 MG TAB PO SCH (09:00)
[2016-06-10] MEDS ORDERED: VERAPAMIL 120 MG SR TAB PO SCH (09:00)
[2016-06-10] MEDS ORDERED: THIAMINE 100 MG TAB As Ordered ONE (09:23)
[2016-06-10] MEDS ORDERED: FOLIC ACID 1 MG TAB As Ordered ONE (09:23)
[2016-06-10] MEDS ORDERED: APIXABAN 2.5 MG TAB (ELIQUIS) As Ordered ONE (09:24)
[2016-06-10] MEDS: FOLIC ACID 1 MG TAB PO SCH (09:33)
[2016-06-10] MEDS: SIMVASTATIN 20 MG TAB PO SCH (09:34)
[2016-06-10] MEDS: oxyBUTYnin *DITROPAN XL* 5 MG TABCR PO SCH (09:34)
[2016-06-10] MEDS: APIXABAN 2.5 MG TAB (ELIQUIS) PO SCH (09:34)
[2016-06-10] MEDS: MAGNESIUM OXIDE 400 MG TAB (MAG-OX) PO SCH (09:34)
[2016-06-10] MEDS: THIAMINE 100 MG TAB PO SCH (09:34)
[2016-06-10 10:35] LABS: INR 1.27
[2016-06-10 10:55] LABS: CONTROL LINE MONO EB INT CTR LINE PRESENT; MONO REFLEX EBV VCA IgM NEGATIVE (NEGATIVE)
--- NOTE | 2016-06-10 11:26 | EDDOCDS ---
Nurse's Notes [facility] Name: Yaritza Fernandez Age: 70 yrs Sex: Female : 1945 Arrival Date: 06/09/2016 Time: 17:10 Bed Admit Hold Private MD: Andrade Kimball P. Diagnosis: Acute kidney failure;Hypotension;Splenomegaly, not elsewhere classified;Atrial fibrillation and flutter Presentation: 06/09 17:15 Presenting complaint: EMS states: SOB since . Was seen by Primary for UTI. rs3 Presenting complaint: Patient states: generalized weakness, wobbly with walking, low blood pressure 80/51 since . Adult Sepsis Screening: The patient does not have new or worsening altered mentation. Patient's respiratory rate is less than 22. Systolic blood pressure is greater than 100. Patient has a qSOFA score of 0- Negative Sepsis Screen. Suicide/Homicide risk assessment- the patient denies having any suicidal and/or homicidal ideations and does not present with any other emotional, behavioral or mental health complaints. 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 Transition of care: patient was not received from another setting of care. 17:15 Acuity: DANAY Level 3 rs3 17:15 Method Of Arrival: Ambulance rs3 Triage Assessment: 17:24 General: Appears in no apparent distress. Pain: Denies pain. Respiratory: Onset: The rs3 symptoms/episode began/occurred gradually. Historical: - Allergies: TETRACYCLINES (Swelling); SULFA (SULFONAMIDES) (Hives); Ambien (Anaphylaxis); - Home Meds: 1. aspirin 81 mg Oral TbEC 1 tab once daily 2. folic acid 1 mg Oral tab once daily 3. levothyroxine 112 mcg Oral cap once daily 4. Mag 64 64 mg oral TbER twice a day 5. oxybutynin chloride 10 mg Oral TG24 once daily 6. Pulmicort Turbuhaler 1 puff Inhl twice a day 7. pro Air 90 mcg inhaler 2 puffs every 4 hours as needed 8. simvastatin 20 mg Oral tab once daily 9. ventolin HFA 90 mcg 2 puffs every 4 hours as needed 10. Spiriva with HandiHaler 18 mcg Inhl CpDv 1 cap once daily 11. verapamil ER 120 mg [place] [address] u weekly every other week 13. vit b1 100 mg daily - PMHx: Cancer, Thyroid; COPD; Hypercholesterolemia; Hypertension; Pneumonia; - PSHx: Appendectomy; - : The pt / caregiver states he / she is not on anticoagulants. Home medication list is obtained from the patient. - Exposure Risk Screening:: None identified. Screenin:48 Screening information is obtained from the patient. Fall risk: At risk due to gait rs3 disturbance. Assistance ADL's: requires no assistance with activities of daily living. Abuse/DV Screen: The patient / caregiver reports he/she is: not in a situation that causes fear, pain or injury. Nutritional screening: No deficits noted. Advance Directives: Currently, there is no health care proxy. home support is adequate. Assessment: 17:48 General: Appears in no apparent distress, Behavior is cooperative. Pain: Denies pain. rs3 Neurological: Level of Consciousness is awake, alert, Reports weakness. Cardiovascular: Capillary refill < 3 seconds Heart tones S1 S2 present. Cardiovascular: Rhythm is irregular Chest pain is denied. Respiratory: Airway is patent Respiratory effort is even, unlabored, Respiratory pattern is regular, symmetrical, Breath sounds are clear bilaterally. Derm: Skin is pink, warm & dry. 18:36 General: Appears in no apparent distress, family at bedside. denies of pain/distress. rs3 1st IVF NS bolus 500 cc complete. tolerated well. ordered 2nd bolus started. blood pressure systolic 70/40 . denies of dizziness at rest. . 19:10 General: Verbal report given by Noris Vale RN. Assumed care of patient at this time.. kas2 19:35 General: Appears in no apparent distress, comfortable, well nourished, well groomed, kas2 Behavior is appropriate for age, cooperative. Pain: Denies pain. Neurological: Level of Consciousness is awake, alert, Oriented to person, place, time. Cardiovascular: Capillary refill < 3 seconds Heart tones S1 S2 present Rhythm is irregular Chest pain is denied. Respiratory: Airway is patent Respiratory effort is even, unlabored, Respiratory pattern is regular, symmetrical, Breath sounds are clear bilaterally. Derm: Skin is intact, Skin is dry, Skin is pink, warm & dry. Skin temperature is warm. 20:37 General: Patient resting in bed with family at bedside. Appears comfortable. Denies kas2 pain or discomfort at this time. Airway patent and respiratory effort even and unlabored. Call maddox within reach. Will continue to monitor.. 21:22 General: Appears in no apparent distress, comfortable, Behavior is appropriate for age, kas2 cooperative. Pain: Denies pain. Neurological: Level of Consciousness is awake, alert, Oriented to person, place, time. Cardiovascular: Rhythm is atrial fibrillation. Respiratory: Airway is patent Respiratory effort is even, unlabored, Respiratory pattern is regular, symmetrical. Derm: Skin is intact, Skin is dry, Skin is pink, warm & dry. Skin temperature is warm. 21:35 General: Verbal report given to Tahira Hager RN. Patient moved to Room 20.. kas2 Vital Signs: 17:15 BP 80 / 51 (auto/); rs3 17:20 BP 80 / 51; Pulse 110; Resp 18; Temp 99.0(TE); Pulse Ox 96% on R/A; Pain 0/10; nb2 17:21 Pulse 134 MON; Pulse Ox 95% ; rs3 17:30 BP 74 / 50 (auto/); rs3 17:30 Pulse 128 MON; Pulse Ox 95% ; rs3 17:45 BP 66 / 41 (auto/); rs3 17:45 Pulse 126 MON; Pulse Ox 96% ; rs3 18:00 BP 72 / 43 (auto/); rs3 18:00 Pulse 130 MON; Pulse Ox 96% ; rs3 18:02 BP 68 / 40 RA Supine (man/reg); rs3 18:15 BP 65 / 50 (auto/); rs3 18:15 Pulse 124 MON; Pulse Ox 98% ; rs3 18:30 BP 83 / 52 (auto/); rs3 18:30 Pulse 122 MON; Pulse Ox 97% ; rs3 19:15 BP 102 / 56 (auto/); kas2 19:16 Pulse 124 MON; Pulse Ox 98% ; kas2 20:40 BP 124 / 61 (auto/); kas2 20:40 Pulse 118 MON; Pulse Ox 98% ; kas2 20:42 BP 102 / 58 (auto/); kas2 20:42 Pulse 120 MON; Pulse Ox 98% ; kas2 20:43 BP 106 / 55 (auto/); kas2 20:43 Pulse 120 MON; Pulse Ox 97% ; kas2 20:57 BP 103 / 51 (auto/); kas2 20:57 Pulse 122 MON; Pulse Ox 98% ; kas2 21:12 BP 107 / 55 (auto/); kas2 21:12 Pulse 114 MON; kas2 21:23 Resp 20; Temp 98.1(O); kas2 Vitals: 17:20 Log In time N/A- police car arrival. 2 ED Course: 17:11 Patient visited by Bob Bartlett PCA. jrd 17:11 Andrade Kimball is Private Physician. jrd 17:11 Patient visited by Bob Bartlett PCA. jrd 17:11 Danita RgRN is Primary Nurse. jrd 17:11 Patient moved to Waiting jrd 17:11 Patient moved to 6 jrd 17:18 Alton Pires MD is Attending Physician. br1 17:18 Triage Initiated rs3 17:20 Placed in gown. Bed in low position. Call light in reach. Side rails up X2. Cardiac nb2 monitor on. Pulse ox on. NIBP on. 17:25 Patient visited by Alton Pires MD. br1 17:49 Urine Culture Sent. rs3 17:49 Lactic Acid (Jones tube on ice) Sent. rs3 17:49 Urinalysis Sent. rs3 17:54 EKG done. (by ED staff). Reviewed by Alton Pires MD. nb2 17:55 Patient visited by Malissa Hirsch. nb2 18:26 Patient visited by Danita Rg RN. rs3 19:09 Tahira Avalos RN is Primary Nurse. kas2 19:11 Patient visited by Tahira Avalos RN. kas2 19:37 Patient visited by Tahira Avalos RN. kas2 20:11 [facility] [place] Payment Agreement was scanned into [employer] and attached to record. ks16 20:18 Elen Browning is Hospitalizing Provider. br1 20:33 CT ABD & PELVIS: No Contrast Returned. EDMS 20:39 Patient visited by Tahira Avalos RN. kas2 21:23 Patient visited by Tahira Avalos RN. kas2 21:28 Patient moved to 20 jlm 21:59 Patient moved to Admit Hold [facility]1 06/10 02:55 Primary Nurse role handed off by Danita Rg,RYAN steinbergb Administered Medications: 06/09 18:02 Drug: NS 0.9% 500 ml [sodium chloride 0.9 % intravenous solution] Route: IV; Rate: rs3 bolus; Site: right antecubital; 18:35 Follow up: IV Status: Completed infusion rs3 18:34 Drug: NS 0.9% 1000 ml [sodium chloride 0.9 % intravenous solution] Route: IV; Rate: rs3 bolus; Site: right antecubital; Order Results: Lab Order: CBC with Diff; SPEC'M 06/09/16 17:32 Test: WHITE BLOOD COUNT; Value: 12.1; Range: 4.0-10.0; Abnormal: Above high normal; Units: K/mm3; Status: F Test: RED BLOOD COUNT; Value: 4.40; Range: 4.00-5.40; Units: M/mm3; Status: F Test: HEMOGLOBIN; Value: 13.4; Range: 12.0-16.0; Units: g/dl; Status: F Test: HEMATOCRIT; Value: 41.2; Range: 36.0-47.0; Units: %; Status: F Test: MEAN CORPUSCULAR VOLUME; Value: 93.8; Range: 80.0-96.0; Units: fl; Status: F Test: MEAN CORPUSCULAR HEMOGLOBIN; Value: 30.4; Range: 27.0-33.0; Units: pg; Status: F Test: MEAN CORPUSCULAR HGB CONC; Value: 32.4; Range: 32.0-36.5; Units: g/dl; Status: F Test: RED CELL DISTRIBUTION WIDTH; Value: 13.4; Range: 11.5-14.5; Units: %; Status: F Test: PLATELET COUNT, AUTOMATED; Value: 82; Range: 150-450; Abnormal: Below low normal; Units: k/mm3; Status: F Test: NEUTROPHILS %; Value: 78.2; Range: 36.0-66.0; Abnormal: Above high normal; Units: %; Status: F Test: LYMPH %; Value: 10.7; Range: 24.0-44.0; Abnormal: Below low normal; Units: %; Status: F Test: MONO %; Value: 6.0; Range: 0.0-5.0; Abnormal: Above high normal; Units: %; Status: F Test: EOS %; Value: 0.1; Range: 0.0-3.0; Units: %; Status: F Test: BASO %; Value: 0.1; Range: 0.0-1.0; Units: %; Status: F Test: LARGE UNSTAINED CELL %; Value: 4.8; Range: 0.0-4.0; Abnormal: Above high normal; Units: %; Status: F Test: NEUTROPHILS #; Value: 9.5; Range: 1.8-7.7; Abnormal: Above high normal; Units: K/mm3; Status: F Test: LYMPH #; Value: 1.3; Range: 1.5-4.5; Abnormal: Below low normal; Units: K/mm3; Status: F Test: MONO #; Value: 0.7; Range: 0.0-0.8; Units: K/mm3; Status: F Test: EOS #; Value: 0.0; Range: 0.0-0.50; Units: K/mm3; Status: F Test: BASO #; Value: 0.0; Range: 0.0-0.2; Units: K/mm3; Status: F Test: LARGE UNSTAINED CELL #; Value: 0.6; Range: 0.0-0.4; Abnormal: Above high normal; Units: K/mm3; Status: F Lab Order: Lactic Acid (Jones tube on ice); SPEC'M 06/09/16 17:33 Test: LACTIC ACID LEVEL, LACTATE; Value: 1.2; Range: 0.4-2.0; Units: MMOL/L; Status: F Lab Order: Liver Profile; SPEC'M 06/09/16 17:32 Test: AST/SGOT; Value: 3; Range: 15-37; Abnormal: Below low normal; Units: U/L; Status: F Test: ALT/SGPT; Value: 9; Range: 12-78; Abnormal: Below low normal; Units: U/L; Status: F Test: ALKALINE PHOSPHATASE; Value: 52; Range: 45-117; Units: U/L; Status: F Test: BILIRUBIN,TOTAL; Value: 0.3; Range: 0.2-1.0; Units: MG/DL; Status: F Test: BILIRUBIN,DIRECT; Value: < 0.1; Range: 0.0-0.2; Units: MG/DL; Status: F Test: TOTAL PROTEIN; Value: 5.8; Range: 6.4-8.2; Abnormal: Below low normal; Units: GM/DL; Status: F Test: ALBUMIN; Value: 3.0; Range: 3.2-5.2; Abnormal: Below low normal; Units: GM/DL; Status: F Test: ALBUMIN/GLOBULIN RATIO; Value: 1.07; Range: 1.00-1.93; Status: F Lab Order: MED Profile; SPEC'M 06/09/16 17:32 Test: GLUCOSE, FASTING; Value: 140; Range: 83-110; Abnormal: Above high normal; Units: MG/DL; Status: F Test: BLOOD UREA NITROGEN; Value: 112; Range: 7-18; Abnormal: Above high normal; Units: MG/DL; Status: F Test: CREATININE FOR GFR; Value: 2.45; Range: 0.55-1.02; Abnormal: Above high normal; Units: MG/DL; Status: F Test: GLOMERULAR FILTRATION RATE; Value: 20.7; Range: >39; Abnormal: Below low normal; Status: F Test: SODIUM LEVEL; Value: 143; Range: 136-145; Units: MEQ/L; Status: F Test: POTASSIUM SERUM; Value: 3.6; Range: 3.5-5.1; Units: MEQ/L; Status: F Test: CHLORIDE LEVEL; Value: 111; Range: 98-107; Abnormal: Above high normal; Units: MEQ/L; Status: F Test: CARBON DIOXIDE LEVEL; Value: 18; Range: 21-32; Abnormal: Below low normal; Units: MEQ/L; Status: F Test: ANION GAP; Value: 14; Range: 8-16; Units: MEQ/L; Status: F Test: CALCIUM LEVEL; Value: 10.2; Range: 8.8-10.2; Units: MG/DL; Status: F Test Note: ; Units are mL/min/1.73 m2 Chronic Kidney Disease Staging per NKF: Stage I & II GFR >=60 Normal to Mildly Decreased Stage III GFR 30-59 Moderately Decreased Stage IV GFR 15-29 Severely Decreased Stage V GFR <15 Very Little GFR Left ESRD GFR <15 on MANUFACTURING TECH Lab Order: Urinalysis; SPEC'06/09/16 17:32 Test: APPEARANCE, URINE; Value: CLOUDY; Range: CLEAR; Abnormal: Above high normal; Status: F Test: COLOR, URINE; Value: YELLOW; Range: YELLOW; Status: F Test: PH,URINE; Value: 5.0; Range: 5.0-9.0; Units: UNITS; Status: F Test: SPECIFIC GRAVITY URINE AUTO; Value: 1.013; Range: 1.002-1.035; Status: F Test: PROTEIN, URINE AUTO; Value: 2+; Range: NEGATIVE; Abnormal: Above high normal; Units: mg/dL; Status: F Test: GLUCOSE, URINE (UA) AUTO; Value: 1+; Range: NEGATIVE; Abnormal: Above high normal; Units: mg/dL; Status: F Test: KETONE, URINE AUTO; Value: NEGATIVE; Range: NEGATIVE; Units: mg/dL; Status: F Test: UROBILINOGEN, URINE AUTO; Value: 0.2; Range: 0.0-2.0; Units: mg/dL; Status: F Test: BILIRUBIN, URINE AUTO; Value: NEGATIVE; Range: NEGATIVE; Status: F Test: NITRITE, URINE AUTO; Value: NEGATIVE; Range: NEGATIVE; Status: F Test: LEUKOCYTE ESTERASE, URINE AUTO; Value: 1+; Range: NEGATIVE; Abnormal: Above high normal; Status: F Test: BLOOD, URINE BLOOD; Value: 3+; Range: NEGATIVE; Abnormal: Above high normal; Status: F Test: WBC, URINE AUTO; Value: 39; Range: 0-3; Abnormal: Above high normal; Units: /HPF; Status: F Test: RBC, URINE AUTO; Value: TNTC; Range: 0-3; Abnormal: Above high normal; Units: /HPF; Status: F Test: BACTERIA, URINE AUTO; Value: 1+; Range: NEGATIVE; Abnormal: Above high normal; Status: F Test: SQUAMOUS EPITHELIAL CELL UR AU; Value: 50; Range: 0-6; Units: /HPF; Status: F Test: HYALINE CAST, URINE AUTO; Value: 0; Range: 0-1; Units: /LPF; Status: F Lab Order: Troponin; SPEC'M 06/09/16 17:32 Test: TROPONIN I; Value: < 0.02; Range: < 0.10; Units: NG/ML; Status: F Test Note: ; Troponin I Reference Interval for [employer] LOCI: 99th Percentile= 0.00-0.045 ng/ml Risk Stratification: <= 0.10 ng/ml Decreased Risk for Adverse Clinical Events. 0.10-1.50 ng/ml Increased Risk for Adverse Clinical Events. Evaluation of additional criterion and/or repeat testing in 2-6 hours is suggested to rule out myocardial damage. >= 1.50 ng/ml Indicative of Myocardial Injury. Lab Order: BNP; SPEC'M 06/09/16 17:32 Test: BRAIN NATRIURETIC PEPTIDE; Value: 293; Range: <100; Abnormal: Above high normal; Units: PG/ML; Status: F Lab Order: CARDIAC MARKER PANEL; SPEC'M 06/09/16 22:15 Test: CPK CREATINE PHOSPHOKINASE; Value: 10; Range: 26-192; Abnormal: Below low normal; Units: U/L; Status: F Test: CK-MB VALUE MASS; Value: 1.0; Range: 0.0-3.6; Units: NG/ML; Status: F Test: MB/CK RELATIVE INDEX; Value: 10.00; Range: < OR =4; Abnormal: Above high normal; Status: F Test: TROPONIN I; Value: < 0.02; Range: < 0.10; Units: NG/ML; Status: F Test Note: ; DIAGNOSIS CRITERIA MMB ng/ml Relative Index (RI) NON-AMI < or = 5 N/A JONES ZONE > 5 < or = 4 AMI > 5 > 4 Lab Order: PROTHROMBIN TIME PROFILE\E\INR; SPEC'M 06/09/16 17:32 Test: PROTHROMBIN TIME; Value: 13.5; Range: 12.3-14.5; Units: SECONDS; Status: F Test: INR; Value: 1.02; Status: F Test Note: ; THERAPUTIC HUMAN INR VALUES INDICATIONS NORMAL RANGES PROPHYLAXIS/TREATMENT OF: VENOUS THROMBOSIS 2.0-3.0 PULMONARY EMBOLISM 2.0-3.0 PREVENTION OF SYSTEMIC EMBOLISM FROM: TISSUE HEART VALVES 2.0-3.0 ACUTE MYOCARDIAL INFARCTION 2.0-3.0 VALVULAR HEART DISEASE 2.0-3.0 ATRIAL FIBRILLATION 2.0-3.0 MECHANICAL VALVES(HIGH RISK) 2.5-3.5 RECURRENT MYOCARDIAL INFARCTION 2.5-3.5 Lab Order: CARDIAC MARKER PANEL; SPEC'M 06/10/16 05:32 Test: CPK CREATINE PHOSPHOKINASE; Value: 13; Range: 26-192; Abnormal: Below low normal; Units: U/L; Status: F Test: CK-MB VALUE MASS; Value: 1.0; Range: 0.0-3.6; Units: NG/ML; Status: F Test: MB/CK RELATIVE INDEX; Value: 7.69; Range: < OR =4; Abnormal: Above high normal; Status: F Test: TROPONIN I; Value: < 0.02; Range: < 0.10; Units: NG/ML; Status: F Test Note: ; DIAGNOSIS CRITERIA MMB ng/ml Relative Index (RI) NON-AMI < or = 5 N/A JONES ZONE > 5 < or = 4 AMI > 5 > 4 Lab Order: CBC WITH DIFFERENTIAL; SPEC'M 06/10/16 05:32 Test: WHITE BLOOD COUNT; Value: 11.9; Range: 4.0-10.0; Abnormal: Above high normal; Units: K/mm3; Status: F Test: RED BLOOD COUNT; Value: 3.74; Range: 4.00-5.40; Abnormal: Below low normal; Units: M/mm3; Status: F Test: HEMOGLOBIN; Value: 11.5; Range: 12.0-16.0; Abnormal: Below low normal; Units: g/dl; Status: F Test: HEMATOCRIT; Value: 35.7; Range: 36.0-47.0; Abnormal: Below low normal; Units: %; Status: F Test: MEAN CORPUSCULAR VOLUME; Value: 95.4; Range: 80.0-96.0; Units: fl; Status: F Test: MEAN CORPUSCULAR HEMOGLOBIN; Value: 30.8; Range: 27.0-33.0; Units: pg; Status: F Test: MEAN CORPUSCULAR HGB CONC; Value: 32.3; Range: 32.0-36.5; Units: g/dl; Status: F Test: RED CELL DISTRIBUTION WIDTH; Value: 14.3; Range: 11.5-14.5; Units: %; Status: F Test: PLATELET COUNT, AUTOMATED; Value: 63; Range: 150-450; Abnormal: Below low normal; Units: k/mm3; Status: F Test: NEUTROPHILS %; Value: 68.5; Range: 36.0-66.0; Abnormal: Above high normal; Units: %; Status: F Test: LYMPH %; Value: 13.1; Range: 24.0-44.0; Abnormal: Below low normal; Units: %; Status: F Test: MONO %; Value: 10.3; Range: 0.0-5.0; Abnormal: Above high normal; Units: %; Status: F Test: EOS %; Value: 0.2; Range: 0.0-3.0; Units: %; Status: F Test: BASO %; Value: 0.5; Range: 0.0-1.0; Units: %; Status: F Test: LARGE UNSTAINED CELL %; Value: 7.4; Range: 0.0-4.0; Abnormal: Above high normal; Units: %; Status: F Test: NEUTROPHILS #; Value: 8.1; Range: 1.8-7.7; Abnormal: Above high normal; Units: K/mm3; Status: F Test: LYMPH #; Value: 2.4; Range: 1.5-4.5; Units: K/mm3; Status: F Test: MONO #; Value: 1.2; Range: 0.0-0.8; Abnormal: Above high normal; Units: K/mm3; Status: F Test: EOS #; Value: 0.0; Range: 0.0-0.50; Units: K/mm3; Status: F Test: BASO #; Value: 0.1; Range: 0.0-0.2; Units: K/mm3; Status: F Test: LARGE UNSTAINED CELL #; Value: 0.9; Range: 0.0-0.4; Abnormal: Above high normal; Units: K/mm3; Status: F Lab Order: BASIC METABOLIC PROFILE; SPECM 06/10/16 05:32 Test: GLUCOSE, FASTING; Value: 88; Range: 83-110; Units: MG/DL; Status: F Test: BLOOD UREA NITROGEN; Value: 93; Range: 7-18; Abnormal: Above high normal; Units: MG/DL; Status: F Test: CREATININE FOR GFR; Value: 1.72; Range: 0.55-1.02; Abnormal: Above high normal; Units: MG/DL; Status: F Test: GLOMERULAR FILTRATION RATE; Value: 31.1; Range: >39; Abnormal: Below low normal; Status: F Test: SODIUM LEVEL; Value: 148; Range: 136-145; Abnormal: Above high normal; Units: MEQ/L; Status: F Test: POTASSIUM SERUM; Value: 3.5; Range: 3.5-5.1; Units: MEQ/L; Status: F Test: CHLORIDE LEVEL; Value: 116; Range: 98-107; Abnormal: Above high normal; Units: MEQ/L; Status: F Test: CARBON DIOXIDE LEVEL; Value: 20; Range: 21-32; Abnormal: Below low normal; Units: MEQ/L; Status: F Test: ANION GAP; Value: 12; Range: 8-16; Units: MEQ/L; Status: F Test: CALCIUM LEVEL; Value: 8.6; Range: 8.8-10.2; Units: MG/DL; Status: F Test Note: ; Units are mL/min/1.73 m2 Chronic Kidney Disease Staging per NKF: Stage I & II GFR >=60 Normal to Mildly Decreased Stage III GFR 30-59 Moderately Decreased Stage IV GFR 15-29 Severely Decreased Stage V GFR <15 Very Little GFR Left ESRD GFR <15 on MANUFACTURING TECH Lab Order: MAGNESIUM LEVEL; SPEC06/10/16 05:32 Test: MAGNESIUM LEVEL; Value: 1.9; Range: 1.8-2.4; Units: MG/DL; Status: F Lab Order: THYROID STIMULATING HORMONE; SPEC06/10/16 05:32 Test: THYROID STIMULATING HORMONE; Value: 0.558; Range: 0.358-3.740; Units: uIU/ML; Status: F Lab Order: FREE T4; SPEC06/10/16 05:32 Test: FREE T4; Value: 0.77; Range: 0.76-1.46; Units: NG/DL; Status: F Lab Order: HEPATITIS PROFILE; SPEC06/10/16 10:20 Test: HEPATITIS C VIRUS NI INDEX; Range: <0.8; Units: INDEX; Status: I Test: HEPATITIS B SURFACE ANTIGEN; Range: NEGATIVE; Status: I Test: HEPATITIS B CORE ANTIBODY IGM; Range: NEGATIVE; Status: I Test: HEPATITIS A ANTIBODY IGM; Range: NEGATIVE; Status: I Lab Order: PATHOLOGIST REVIEW COMPREHENSI; SPEC 06/10/16 05:32 Test: SLIDE REVIEW; Value: Report; Status: F Test: SOURCE; Value: PERIPHERAL SMEAR; Status: F Test: REASON FOR REVIEW; Value: COMPREHENSIVE REVIEW; Status: F Test Note: ; Slide and/or specimen referred to Pathologist for review. Results of the review are located in the EMR Pathology module under Peripheral Smear when completed. Lab Order: MONO REFLEX EBV VCA IgM; SPEC'M 06/10/16 10:20 Test: MONO REFLEX EBV VCA IgM; Value: NEGATIVE; Range: NEGATIVE; Status: F Lab Order: MONOSCREEN; SPEC 06/10/16 10:20 Test: MONO SCRN; Range: NEGATIVE; Status: I Lab Order: RHEUMATOID FACTOR QUANT; [facility] 06/10/16 10:20 Test: RHEUMATOID FACTOR QUANT; Value: < 10.0; Range: 0-15.0; Units: IU/ML; Status: F Lab Order: PT & APTT; [facility] 06/10/16 10:21 Test: PROTHROMBIN TIME; Value: 16.0; Range: 12.3-14.5; Abnormal: Above high normal; Units: SECONDS; Status: F Test: INR; Value: 1.27; Status: F Test: PARTIAL THROMBOPLASTIN TIME; Value: 30.9; Range: 26.6-37.1; Units: SECONDS; Status: F Test Note: ; THERAPUTIC HUMAN INR VALUES INDICATIONS NORMAL RANGES PROPHYLAXIS/TREATMENT OF: VENOUS THROMBOSIS 2.0-3.0 PULMONARY EMBOLISM 2.0-3.0 PREVENTION OF SYSTEMIC EMBOLISM FROM: TISSUE HEART VALVES 2.0-3.0 ACUTE MYOCARDIAL INFARCTION 2.0-3.0 VALVULAR HEART DISEASE 2.0-3.0 ATRIAL FIBRILLATION 2.0-3.0 MECHANICAL VALVES(HIGH RISK) 2.5-3.5 RECURRENT MYOCARDIAL INFARCTION 2.5-3.5 Radiology Order: CT ABD & PELVIS: No Contrast Test: CT ABD & PELVIS: No Contrast REASON FOR EXAMINATION: Abdomen Pain; ; CLINICAL HISTORY: Abdominal pain.; TECHNIQUE: Multiple axial, sagittal and coronal CT images were obtained through the abdomen and pelvi; s without administration of oral or IV contrast material.; COMMENTS:; The liver is of uniform attenuation without mass or defect. There is no intra or extrahepatic biliary; ductal dilatation. The spleen is massively enlarged. The gallbladder is within normal limits. The pa; ncreas is of normal contour and attenuation characteristics. There is no evidence of adrenal mass.; The kidneys are normal in size, shape and configuration. No renal or ureteral calculi are identified.; There is no hydroureter or hydronephrosis.; There is no evidence for appendicitis. There is no bowel wall thickening. No evidence for small or la; rge bowel obstruction. There is no evidence of abdominal ascites or lymphadenopathy.; There is no evidence of intrinsic or extrinsic bladder mass. There is no pelvic ascites or lymphadeno; jorge. The uterus and ovaries are atrophic.; Images of the lung bases show no evidence of pleural or parenchymal mass. There are no pleural effusi; ons.; The bony structures are free of lytic or blastic lesions. Multilevel degenerative changes are seen in; volving the thoracolumbar spine.; Scattered calcifications are seen involving the aorta and major branches compatible with atherosclero; sis.; IMPRESSION:; Massive splenomegaly. Otherwise unremarkable study; Thank you for your kind referral of this patient.; ; Outcome: 20:18 Decision to Hospitalize by Provider. br1 06/10 11:25 Patient left the ED. deg Signatures: Dispatcher [employer] EDMS Latricia Romero, Grab Setter Unit deg Alton Pires MD MD br1 Danita Rg RN RN rs3 Ainsley Rodriguez RN RN [id number] Abner Santiago RN RN jmb Mitchell, Jessie, Grab Setter Unit jlm Bob Bartlett, TY LAUNDRY CLERK Genesis Navarro, Reg Reg [id number] aThira AvalosRN RN Malissa Hernandez MTDD
--- NOTE | 2016-06-10 11:26 | EDDOCDS ---
Physician Documentation [facility] Name: Yaritza Fernandez Age: 70 yrs Sex: Female : 1945 Arrival Date: 06/09/2016 Time: 17:10 Bed Admit Hold Private MD: Andrade Kimball P. Disposition: 06/09/16 20:18 Hospitalization ordered by Elen Browning for Inpatient Admission. Preliminary diagnosis are Acute kidney failure, Hypotension, Splenomegaly, not elsewhere classified, Atrial fibrillation and flutter. - Bed requested for Admit. - Status is Inpatient Admission. deg - Condition is Stable. - Problem is new. - Symptoms are unchanged. Historical: - Allergies: TETRACYCLINES (Swelling); SULFA (SULFONAMIDES) (Hives); Ambien (Anaphylaxis); - Home Meds: 1. aspirin 81 mg Oral TbEC 1 tab once daily 2. folic acid 1 mg Oral tab once daily 3. levothyroxine 112 mcg Oral cap once daily 4. Mag 64 64 mg oral TbER twice a day 5. oxybutynin chloride 10 mg Oral TG24 once daily 6. Pulmicort Turbuhaler 1 puff Inhl twice a day 7. pro Air 90 mcg inhaler 2 puffs every 4 hours as needed 8. simvastatin 20 mg Oral tab once daily 9. ventolin HFA 90 mcg 2 puffs every 4 hours as needed 10. Spiriva with HandiHaler 18 mcg Inhl CpDv 1 cap once daily 11. verapamil ER 120 mg [place] [id number] u weekly every other week 13. vit b1 100 mg daily - PMHx: Cancer, Thyroid; COPD; Hypercholesterolemia; Hypertension; Pneumonia; - PSHx: Appendectomy; - : The pt / caregiver states he / she is not on anticoagulants. Home medication list is obtained from the patient. - Exposure Risk Screening:: None identified. Vital Signs: 06/09 17:15 BP 80 / 51 (auto/); rs3 17:20 BP 80 / 51; Pulse 110; Resp 18; Temp 99.0(TE); Pulse Ox 96% on R/A; Pain 0/10; nb2 17:21 Pulse 134 MON; Pulse Ox 95% ; rs3 17:30 BP 74 / 50 (auto/); rs3 17:30 Pulse 128 MON; Pulse Ox 95% ; rs3 17:45 BP 66 / 41 (auto/); rs3 17:45 Pulse 126 MON; Pulse Ox 96% ; rs3 18:00 BP 72 / 43 (auto/); rs3 18:00 Pulse 130 MON; Pulse Ox 96% ; rs3 18:02 BP 68 / 40 RA Supine (man/reg); rs3 18:15 BP 65 / 50 (auto/); rs3 18:15 Pulse 124 MON; Pulse Ox 98% ; rs3 18:30 BP 83 / 52 (auto/); rs3 18:30 Pulse 122 MON; Pulse Ox 97% ; rs3 19:15 BP 102 / 56 (auto/); kas2 19:16 Pulse 124 MON; Pulse Ox 98% ; kas2 20:40 BP 124 / 61 (auto/); kas2 20:40 Pulse 118 MON; Pulse Ox 98% ; kas2 20:42 BP 102 / 58 (auto/); kas2 20:42 Pulse 120 MON; Pulse Ox 98% ; kas2 20:43 BP 106 / 55 (auto/); kas2 20:43 Pulse 120 MON; Pulse Ox 97% ; kas2 20:57 BP 103 / 51 (auto/); kas2 20:57 Pulse 122 MON; Pulse Ox 98% ; kas2 21:12 BP 107 / 55 (auto/); kas2 21:12 Pulse 114 MON; kas2 21:23 Resp 20; Temp 98.1(O); kas2 MDM: 17:27 -Blood Culture (Adults Only), peripheral from different site, or from device/port/PICC br1 etc. if present ordered. 17:27 Gathering Worker/Pulse Ox/q 15 min VS ordered. br1 17:27 Large bore IV x 2 ordered. br1 17:27 Misc. Nursing Order ordered. br1 17:27 CBC with Diff Ordered. EDMS 17:27 Lactic Acid (Jones tube on ice) Ordered. EDMS 17:27 Liver Profile Ordered. EDMS 17:27 MED Profile Ordered. EDMS 17:27 Urinalysis Ordered. EDMS 17:27 -Blood Culture Ordered. EDMS 17:27 Urine Culture Ordered. EDMS 17:28 Chest, 1 View Ordered. EDMS 17:28 ECG WITH READING ER PHYS+CARDIAG ordered. EDMS 17:28 Troponin Ordered. EDMS 17:28 BNP Ordered. EDMS 17:29 BLOOD CULTURES Ordered. EDMS 17:29 -Blood Culture (Adults Only), peripheral from different site, or from device/port/PICC deg etc. if present complete. 17:44 NS 0.9% 500 ml IV at bolus once ordered. br1 18:29 NS 0.9% 1000 ml IV at bolus once ordered. br1 18:31 CT ABD & PELVIS: No Contrast Ordered. EDMS 19:01 CBC with Diff Reviewed. br1 19:01 Liver Profile Reviewed. br1 19:01 MED Profile Reviewed. br1 19:01 Urinalysis Reviewed. br1 19:01 BNP Reviewed. br1 19:01 Lactic Acid (Jones tube on ice) Reviewed. br1 19:01 Troponin Reviewed. br1 19:22 Financial registration complete. [email or web address] 20:06 BED REQUEST+ADM ordered. EDMS 20:11 [facility] Payment Agreement was scanned into [employer] and attached to record. [email or web address] 21:18 Admission / Observation Status ordered. EDMS 21:19 CARDIAC MARKER PANEL Ordered. EDMS 21:19 PROTHROMBIN TIME PROFILE\E\INR Ordered. EDMS 21:19 CARDIAC MARKER PANEL Ordered. EDMS 21:19 CARDIAC MARKER PANEL Ordered. EDMS 21:20 CBC WITH DIFFERENTIAL Ordered. EDMS 21:20 BASIC METABOLIC PROFILE Ordered. EDMS 21:20 MAGNESIUM LEVEL Ordered. EDMS 21:20 THYROID STIMULATING HORMONE Ordered. EDMS 21:20 FREE T4 Ordered. EDMS 22:49 ECHOCARD,DOPPLER/COLOR FLOW ordered. EDMS 06/10 07:13 NPO FOR TEST/PROCEDURE ordered. EDMS 07:13 HEPATITIS PROFILE Ordered. EDMS 07:13 CYTOMEGALOVIRUS ANTIBODY IgG Ordered. EDMS 07:13 CYTOMEGALOVIRUS ANTIBODY IgM Ordered. EDMS 07:13 ANTINUCLEAR ANTIBODIES Ordered. EDMS 07:13 EXTRACTABLE NUCLEAR ANTIGEN Ordered. EDMS 07:13 ANTI DOUBLE STRAND DNA NI Ordered. EDMS 07:14 PATHOLOGIST REVIEW COMPREHENSI Ordered. EDMS 07:14 ANGIOTENSIN 1 CONVERTING ENZ Ordered. EDMS 07:14 MONO REFLEX EBV VCA IgM Ordered. EDMS 07:14 MONOSCREEN Ordered. EDMS 07:14 RHEUMATOID FACTOR QUANT Ordered. EDMS 07:14 LIVER DOPPLER FLOW Ordered. EDMS 07:19 ABD COMPLETE US Ordered. EDMS 07:39 CT Chest without contrast Ordered. EDMS 10:05 PROTHROMBIN TIME PROFILE\E\INR Ordered. EDMS 10:05 PT & APTT Ordered. EDMS 10:57 EBV VIRAL CAPSID antigen IGM Ordered. EDMS 11:03 MRSA SCREEN Ordered. EDMS Administered Medications: 06/09 18:02 Drug: NS 0.9% 500 ml [sodium chloride 0.9 % intravenous solution] Route: IV; Rate: rs3 bolus; Site: right antecubital; 18:35 Follow up: IV Status: Completed infusion rs3 18:34 Drug: NS 0.9% 1000 ml [sodium chloride 0.9 % intravenous solution] Route: IV; Rate: rs3 bolus; Site: right antecubital; Signatures: Dispatcher [employer] EDMS Latricia Romero, Informatics Analyst Unit deg Alton Pires MD MD br1 Danita Rg RN RN rs3 Genesis Sellers, Reg Reg [email or web address] The chart was reviewed and I authenticate all verbal orders and agree with the evaluation and treatment provided.Corrections: (The following items were deleted from the chart) 06/10 07:13 06/09 21:19 NO ADDED SALT DIET ordered. EDMS EDMS Attachments: 20:11 [facility] Payment Agreement [email or web address] MTDD
--- NOTE | 2016-06-10 15:42 | ECGEPIP ---
Stationary ECG Study [facility] - ED Test Date: 2016-06-09 Pat Name: MERON BERRY Department: Room: - Gender: F Comic Writer: magdalene : 1945 Requested By: ROBI Arredondo Order Number: [id number] Reading MD: Grace Antonio Measurements Intervals [place] Rate: 123 P: TN: 0 QRS: 83 QRSD: 78 T: 71 QT: 301 QTc: 431 Interpretive Statements ATRIAL FIBRILLATION WITH RAPID VENTRICULAR RESPONSE WITH ABERRANT CONDUCTION OR VENTRICULAR PREMATURE COMPLEXES BASELINE ARTIFACT LIMITS INTERPRETATION LOW QRS VOLTAGE IN EXTREMITY LEADS NONSPECIFIC ST & T-WAVE ABNORMALITY ABNORMAL RHYTHM ECG Electronically Signed On 06-10-2016 15:42:42 EST by Grace Antonio
[2016-06-10] MEDS ORDERED: INFLUENZA VIRUS VACCINE HIGH DOSE 0.5 ML SYRINGE (90662) IM SCH (16:30)
[2016-06-10] MEDS ORDERED: NS 1,000 ML IV SCH (17:00)
[2016-06-10] MEDS ORDERED: SODIUM CHLORIDE 0.9% 1000 ML IV PRN (18:00)
[2016-06-10] MEDS: cefTRIAXone SOD 1 GM in D5W MINI-BAG PLUS 50 ML IV SCH (21:20)
[2016-06-11] VITALS (8 sets, daily range): BP systolic 92–128; BP diastolic 54–74
[2016-06-11] MEDS ORDERED: SODIUM CHLORIDE 0.9% 1000 ML IV ONE
[2016-06-11 05:02] LABS: BASO % 0.5 % (0.0-1.0); EOS % 0.4 % (0.0-3.0); LARGE UNSTAINED CELL # 0.6 K/mm3 (0.0-0.4); LARGE UNSTAINED CELL % 7.3 % (0.0-4.0); LYMPH # 2.1 K/mm3 (1.5-4.5); LYMPH % 19.6 % (24.0-44.0); MEAN CORPUSCULAR HEMOGLOBIN 30.7 pg (27.0-33.0); MEAN CORPUSCULAR HGB CONC 31.9 g/dl (32.0-36.5); MEAN CORPUSCULAR VOLUME 96.1 fl (80.0-96.0); MONO # 0.7 K/mm3 (0.0-0.8); MONO % 9.5 % (0.0-5.0); NEUTROPHILS # 4.9 K/mm3 (1.8-7.7); NEUTROPHILS % 62.6 % (36.0-66.0); RED CELL DISTRIBUTION WIDTH 14.4 % (11.5-14.5); WHITE BLOOD COUNT 7.8 K/mm3 (4.0-10.0)
[2016-06-11 05:07] LABS: PLATELET COUNT, AUTOMATED 51 k/mm3 (150-450)
[2016-06-11 05:15] LABS: CALCIUM LEVEL 7.3 MG/DL (8.8-10.2); GLOMERULAR FILTRATION RATE 58.2 (>39); MAGNESIUM LEVEL 1.7 MG/DL (1.8-2.4); POTASSIUM SERUM 3.2 MEQ/L (3.5-5.1)
[2016-06-11] MEDS: LEVOTHYROXINE 0.112 MG TAB (112 MCG) PO SCH (05:17)
[2016-06-11] MEDS: ACETAMINOPHEN TAB 650MG DOSE (2X325MG) PO PRN ×3 (05:18→19:51)
[2016-06-11] MEDS ORDERED: D5W/0.45% SODIUM CHLORIDE 1,000 ML IV SCH (06:00)
[2016-06-11] MEDS ORDERED: POTASSIUM CHLORIDE 10 MEQ SR TABLET PO ONE ×2 (06:00→07:15)
[2016-06-11] MEDS: MAG SULF 1GM/100ML (MAG RUN) 1 GM in APPROPRIATE DILUENT 1 EA IV SCH ×2 (06:13→07:29)
[2016-06-11] MEDS ORDERED: MAG SULF 1GM/100ML (MAG RUN) 1 GM in APPROPRIATE DILUENT 1 EA IV ONE (07:15)
[2016-06-11] MEDS: TIOTROPIUM INHALER/CAPSULE (SPIRIVA) INH SCH (08:04)
[2016-06-11] MEDS: BUDESONIDE 0.5 MG/2 ML INHALATION SUSPENSION INH SCH ×2 (08:04→19:43)
[2016-06-11] MEDS: MAGNESIUM OXIDE 400 MG TAB (MAG-OX) PO SCH (08:12)
[2016-06-11] MEDS: oxyBUTYnin *DITROPAN XL* 5 MG TABCR PO SCH (08:12)
[2016-06-11] MEDS: FOLIC ACID 1 MG TAB PO SCH (08:12)
[2016-06-11] MEDS: SIMVASTATIN 20 MG TAB PO SCH (08:12)
[2016-06-11] MEDS: THIAMINE 100 MG TAB PO SCH (08:12)
[2016-06-11 09:25] LABS: CONTROL LINE MONO INT CTR LINE PRESENT
--- NOTE | 2016-06-11 11:06 | REP ---
Portable chest, single AP view: Comparisons are the portable chest dated 12/26/[address] dated 2015. The previous bilateral infiltrates have resolved. There are no acute infiltrates on the study today. There are no pleural effusions. There is an unusual calcification projected between the anterior ends of the right third and fourth ribs, likely costochondral calcification, unchanged from studies dating to at least 09/24/2011. There is thoracic scoliosis convex right. Cardiac size is upper normal. The judy, mediastinum, and bony thorax are unremarkable. Impression: There are no acute cardiopulmonary findings. The previous infiltrates have resolved. Stable calcification superimposed over the right upper lobe, unchanged from multiple prior studies. Signed by Deshawn Mosley MD 06/10/2016 08:16 A
--- NOTE | 2016-06-11 11:07 | REP ---
CT of the chest without IV contrast: There is no mediastinal lymph node enlargement. There are a few normal-sized mediastinal nodes. There is no axillary lymph node enlargement. In the absence of IV contrast the study is insensitive for hilar lymph node enlargement. There are no infiltrates or effusions. There are no masses or nodules. The unenhanced thoracic aorta is unremarkable except for calcified atheroma. Cardiac size is normal. There is no pericardial effusion. The visualized upper abdominal contents demonstrate splenomegaly. There is a large costochondral calcification in the anterior chest wall interposed between the anterior ends of the right third and fourth ribs, unchanged from multiple prior studies and can be seen as a vague density superimposed over the right upper lobe on plain films. Impression: No adenopathy. No acute cardiopulmonary findings. No masses or nodules. Splenomegaly. Otherwise, essentially negative CT study of the chest without IV contrast. Signed by Deshawn Mosley MD 06/10/2016 08:32 A
--- NOTE | 2016-06-11 11:23 | REP ---
Whole body abdominal ultrasound and portal venous Doppler ultrasound and the patient was splenomegaly: Comparison is the CT of the abdomen and pelvis dated 03/09 2014. Complete abdominal ultrasound: There is Aliza a small 3 ml polyp versus adherent calculus on the anterior gallbladder wall. There is no other evidence of cholelithiasis. There is no gallbladder wall thickening or pericholecystic fluid. There is no intrahepatic or extrahepatic biliary duct dilatation, the common duct is 5.2 mm diameter. The hepatic parenchyma is homogeneous and unremarkable. The pancreas is obscured by bowel. The spleen is not significantly enlarged measuring 18.9 x 8.9 by 19 centimeters. There is a focal hypoechoic lesion in the spleen measuring 3.2 by 2.2 x 3.9 cm, cyst versus splenic infarct at the lower pole of the spleen. The kidneys are normal size. The right kidney measures 9.0 4.3 x 4.7 cm and the left kidney measures 9.3 x 3.9 x 5.4 cm. There is no hydronephrosis, calculus, mass or cyst in the right and left kidneys. The proximal aorta measures 2.5 cm below the diaphragm and 1.6 cm at the bifurcation. The aorta between these two measurements is obscured by bowel. There is no ascites. Portal vein Doppler ultrasound: The main portal vein measures 12 mm diameter which is normal. There is antegrade flow in the portal vein. There is no evidence of stasis or retrograde flow. Flow velocities in the portal vein are normal. Impression: No evidence of 4-0 portal vein thrombus, venous stasis or reversal of flow. There is antegrade flow in the portal vein. There is no ascites. The spleen is significantly enlarged. There is a small amniotic calculus versus polyp along the anterior wall of the gallbladder. Otherwise, negative abdominal ultrasound. Signed by Deshawn Mosley MD 06/10/2016 02:33 P
--- NOTE | 2016-06-11 11:54 | IPN ---
DATE OF SERVICE: 06/11/2016 The patient required a total of 5 liters of intravenous (IV) fluids overnight from the emergency room and the floor to keep her systolic pressure above 100. This morning, the patient denies any shortness of breath, chest pain, pressure, tightness, near syncope, or lightheadedness. She remained afebrile overnight. Continued on intravenous ceftriaxone. Urine culture 06/09/2016 shows contamination. Methicillin-resistant Staphylococcus aureus (MRSA) screen is pending. A central line was not placed, as the patient's main arterial pressure remained above 70. Vital signs: Temperature 96.4, pulse 110, respiratory rate 16, blood pressure 105/60, 99% on room air. Generally, awake, alert, oriented times three, answering questions appropriately. No jugular venous distention (JVD). No thyromegaly. Moist mucous membranes. Lungs: Diminished breath sounds but clear to auscultation. No wheezing, rales, or rhonchi. Abdomen: Is soft, nontender, nondistended, positive bowel sounds. Extremities have no pitting edema. LABORATORY DATA: White count 7.8, hemoglobin is 10, hematocrit 37, platelet count of 51. Sodium 153, potassium 3.2, chloride 124, bicarbonate 20, BUN 55, creatinine 1, glucose of 82, magnesium of 1.7, BNP of 231. Peripheral smear shows normocytic normochromic anemia, mild monocytosis, may reflect reactive process, repeat in 4-8 weeks. ASSESSMENT AND PLAN: This is a 70-year-old female with history of chronic obstructive pulmonary disease (COPD), hypothyroidism, hyperlipidemia, hypertension, cor. pulmonale, mild to moderate mitral valve disease, atrial tachycardia, questionable prior atrial fibrillation, tonsillectomy, adenoidectomy, thyroidectomy, appendectomy, who presented to the emergency room not feeling well." Was found to have acute kidney injury and severe hypotension , most likely secondary to urinary tract infection. IMPRESSION: 1. Sepsis secondary to urinary tract infection (UTI). The patient has been fluid hydrated with 5 liters of intravenous fluids. Systolic pressure is improved from 80 to 105. Not requiring vasopressor. The patient's acute kidney injury has since resolved. She is continued on intravenous (IV) ceftriaxone for urinary tract infection. Urine culture was contaminated. Will obtain a urinalysis (UA) and urine culture and sensitivity (C and S) again. 2. History of cor. pulmonale. Current chest x-ray, current chest examination is clear with diminished breath sounds. No wheezing and no rales noted. Continue with intravenous (IV) fluid hydration. 3. Hypernatremia, most likely secondary to normal saline given for fluid resuscitation. Will change to D5 half-normal saline and check every hour metabolic panel. 4. Acute kidney injury secondary to severe hypotension with systolic pressure in the 80s on admission, as well as sepsis secondary to UTI, resolved with IV fluid hydration. 5. Electrolyte abnormalities. Low potassium and low magnesium have been supplemented. 6. Splenomegaly. Awaiting results of liver ultrasound with Doppler, chest CT. Peripheral smear shows no significant abnormality. Will send off viral studies, hepatitis C and B, CMV, hepatitis mono screen test, antinuclear antibody (JOHN), rheumatoid factor, and double stranded and anti-Avalos antibodies, IRON P[employer] BULLET MAKER antibodies. Consult hematology regarding the patient's history of recurrent infections and current splenomegaly. 7. Cor. pulmonale appears to be well compensated. No signs of heart failure. 8. Hyperlipidemia. Continue home medications. 9. Hypothyroidism. Continue home medications. 10. History of atrial tachycardia. Most likely secondary to hypotension. Will check a 12-lead electrocardiogram (EKG). [facility]
[2016-06-11] MEDS: APIXABAN 5 MG TAB (ELIQUIS) PO SCH ×2 (11:58→21:46)
--- NOTE | 2016-06-11 12:05 | REP ---
Portable chest x-ray: AP semi-erect view. History: Shortness of breath. Renal failure question CHF. Comparison chest x-ray June 09, 2016. Findings: EKG monitoring electrodes overlie the chest. Pulmonary vasculature is a little cephalized. Mild cardiomegaly is observed. The pleural angles are sharp. No infiltrate or pulmonary edema is seen. Impression: Mild cardiomegaly and vascular cephalization consistent with some degree of CHF. No evidence of pleural effusion or pulmonary edema. Signed by Quirino Herrera MD 06/11/2016 12:16 P
--- NOTE | 2016-06-11 12:15 | ECHO ---
DATE OF PROCEDURE: 06/10/2016 REFERRING PHYSICIAN: Dr. Daniela Vanegas. Reason for the echocardiogram, abnormal EKG. 2D MEASUREMENTS: IVS: 1.0 cm LV: 4.2 cm LVPW: 1.1 cm LA: 3.7 cm Aorta: 3.3 cm IVC: 1.9 cm RV: 3.1 cm DOPPLER MEASUREMENTS: Peak velocity across the aortic valve, 1.4 m/s Peak velocity across the LVOT - 1.2 m/s Mitral E 1.1 Maximum tricuspid valve velocity 2.7 m/s 2D COMMENTS: 1. Normal left ventricular size, wall thickness and normal global left ventricular systolic function. The estimated global left ventricular systolic ejection fraction is 60 to 65%. 2. Normal left atrium. Normal right atrium and right ventricle. 3. The atrial septum appeared to be normal without evidence of defect or shunt. 4. Normal aortic root. 5. Trace to small pericardial effusion noted, no evidence of cardiac tamponade. 6. Normal aortic valve, mitral valve, tricuspid valve and pulmonic valve. The proximal pulmonary artery branches were not well visualized. 7. The inferior vena cava was normal in size, central venous pressure is most likely normal. DOPPLER: It detects trace mitral regurgitation, mild to moderate tricuspid regurgitation. The calculated pulmonary artery systolic pressure varies between 30 to 40 mmHg. Assessment of the left ventricular diastolic function appeared to be limited, patient seemed to be in atrial fibrillation during the test. IMPRESSION: 1. Normal global left ventricular systolic function. 2. Trace mitral regurgitation. 3. Mild to moderate tricuspid regurgitation with mild pulmonary hypertension. 4. Trace to small pericardial effusion noted, no evidence of cardiac tamponade. [facility]
[2016-06-11 13:18] LABS: ANION GAP 10 MEQ/L (8-16); BLOOD UREA NITROGEN 40 MG/DL (7-18); CALCIUM LEVEL 7.4 MG/DL (8.8-10.2); CARBON DIOXIDE LEVEL 21 MEQ/L (21-32); CHLORIDE LEVEL 120 MEQ/L (98-107); CREATININE FOR GFR 0.91 MG/DL (0.55-1.02); GLOMERULAR FILTRATION RATE > 60.0 (>39); GLUCOSE, FASTING 118 MG/DL (83-110); POTASSIUM SERUM 3.7 MEQ/L (3.5-5.1); SODIUM LEVEL 151 MEQ/L (136-145)
[2016-06-11] MEDS ORDERED: INFLUENZA VIRUS VACCINE HIGH DOSE 0.5 ML SYRINGE (90662) IM ONE (15:00)
[2016-06-11] MEDS: D5W/0.45% SODIUM CHLORIDE 1,000 ML IV SCH (17:28)
[2016-06-11 18:22] LABS: ANION GAP 7 MEQ/L (8-16); BLOOD UREA NITROGEN 38 MG/DL (7-18); CALCIUM LEVEL 7.3 MG/DL (8.8-10.2); CARBON DIOXIDE LEVEL 21 MEQ/L (21-32); CHLORIDE LEVEL 122 MEQ/L (98-107); CREATININE FOR GFR 0.89 MG/DL (0.55-1.02); GLOMERULAR FILTRATION RATE > 60.0 (>39); GLUCOSE, FASTING 133 MG/DL (83-110); POTASSIUM SERUM 4.2 MEQ/L (3.5-5.1); SODIUM LEVEL 150 MEQ/L (136-145)
--- NOTE | 2016-06-11 19:24 | ECGEPIP ---
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
[2016-06-11] MEDS: cefTRIAXone SOD 1 GM in D5W MINI-BAG PLUS 50 ML IV SCH (21:46)
[2016-06-12] MEDS: ACETAMINOPHEN TAB 650MG DOSE (2X325MG) PO PRN ×5 (00:15→19:43)
[2016-06-12 00:16] VITALS: BP 116/68
[2016-06-12 01:04] LABS: ANION GAP 8 MEQ/L (8-16); BLOOD UREA NITROGEN 30 MG/DL (7-18); CALCIUM LEVEL 7.1 MG/DL (8.8-10.2); CARBON DIOXIDE LEVEL 20 MEQ/L (21-32); CHLORIDE LEVEL 120 MEQ/L (98-107); GLOMERULAR FILTRATION RATE > 60.0 (>39); GLUCOSE, FASTING 126 MG/DL (83-110); POTASSIUM SERUM 3.8 MEQ/L (3.5-5.1); SODIUM LEVEL 148 MEQ/L (136-145)
[2016-06-12 04:58] VITALS: BP 108/63
[2016-06-12] MEDS: D5W/0.45% SODIUM CHLORIDE 1,000 ML IV SCH (05:09)
[2016-06-12] MEDS: LEVOTHYROXINE 0.112 MG TAB (112 MCG) PO SCH (05:09)
[2016-06-12 05:44] LABS: ANION GAP 7 MEQ/L (8-16); BLOOD UREA NITROGEN 27 MG/DL (7-18); CALCIUM LEVEL 7.2 MG/DL (8.8-10.2); CARBON DIOXIDE LEVEL 20 MEQ/L (21-32); CHLORIDE LEVEL 121 MEQ/L (98-107); CREATININE FOR GFR 0.78 MG/DL (0.55-1.02); GLOMERULAR FILTRATION RATE > 60.0 (>39); GLUCOSE, FASTING 109 MG/DL (83-110); POTASSIUM SERUM 3.4 MEQ/L (3.5-5.1); SODIUM LEVEL 148 MEQ/L (136-145)
[2016-06-12 05:48] LABS: DIFF SLIDE NUMBER 41; MEAN CORPUSCULAR HEMOGLOBIN 30.5 pg (27.0-33.0); MEAN CORPUSCULAR HGB CONC 30.8 g/dl (32.0-36.5); RED CELL DISTRIBUTION WIDTH 13.6 % (11.5-14.5); WHITE BLOOD COUNT 6.3 K/mm3 (4.0-10.0)
[2016-06-12 06:36] LABS: PLATELET COUNT, AUTOMATED 47 k/mm3 (150-450)
[2016-06-12 06:56] LABS: BASOPHILS 2 % (0-4); EOSINOPHILS 1 % (0-5)
[2016-06-12 06:57] LABS: TOXIC VACUOLATION 2+
[2016-06-12] MEDS: TIOTROPIUM INHALER/CAPSULE (SPIRIVA) INH SCH (07:30)
[2016-06-12] MEDS: BUDESONIDE 0.5 MG/2 ML INHALATION SUSPENSION INH SCH ×2 (07:30→19:52)
[2016-06-12 08:00] VITALS: BP 111/67
[2016-06-12] MEDS ORDERED: POTASSIUM CHLORIDE 10 MEQ SR TABLET PO ONE (08:00)
[2016-06-12] MEDS: SIMVASTATIN 20 MG TAB PO SCH (08:46)
[2016-06-12] MEDS: oxyBUTYnin *DITROPAN XL* 5 MG TABCR PO SCH (08:46)
[2016-06-12] MEDS: THIAMINE 100 MG TAB PO SCH (08:49)
[2016-06-12] MEDS: MAGNESIUM OXIDE 400 MG TAB (MAG-OX) PO SCH (08:49)
[2016-06-12] MEDS: FOLIC ACID 1 MG TAB PO SCH (08:49)
[2016-06-12] MEDS: APIXABAN 5 MG TAB (ELIQUIS) PO SCH ×2 (08:49→20:59)
[2016-06-12 11:59] LABS: ANION GAP 6 MEQ/L (8-16); BLOOD UREA NITROGEN 23 MG/DL (7-18); CALCIUM LEVEL 7.4 MG/DL (8.8-10.2); CARBON DIOXIDE LEVEL 22 MEQ/L (21-32); CHLORIDE LEVEL 120 MEQ/L (98-107); GLOMERULAR FILTRATION RATE > 60.0 (>39); GLUCOSE, FASTING 115 MG/DL (83-110); POTASSIUM SERUM 3.9 MEQ/L (3.5-5.1); SODIUM LEVEL 148 MEQ/L (136-145)
[2016-06-12 12:00] VITALS: BP 111/71
--- NOTE | 2016-06-12 12:27 | EDDOCDS ---
Physician Documentation [facility] Name: Yaritza Fernandez Age: 70 yrs Sex: Female : 1945 Arrival Date: 06/09/2016 Time: 17:10 Bed Admit Hold Private MD: Andrade Kimball P. Disposition: 06/09/16 20:18 Hospitalization ordered by Elen Browning for Inpatient Admission. Preliminary diagnosis are Acute kidney failure, Hypotension, Splenomegaly, not elsewhere classified, Atrial fibrillation and flutter. - Bed requested for Admit. - Status is Inpatient Admission. deg - Condition is Stable. - Problem is new. - Symptoms are unchanged. Historical: - Allergies: TETRACYCLINES (Swelling); SULFA (SULFONAMIDES) (Hives); Ambien (Anaphylaxis); - Home Meds: 1. aspirin 81 mg Oral TbEC 1 tab once daily 2. folic acid 1 mg Oral tab once daily 3. levothyroxine 112 mcg Oral cap once daily 4. Mag 64 64 mg oral TbER twice a day 5. oxybutynin chloride 10 mg Oral TG24 once daily 6. Pulmicort Turbuhaler 1 puff Inhl twice a day 7. pro Air 90 mcg inhaler 2 puffs every 4 hours as needed 8. simvastatin 20 mg Oral tab once daily 9. ventolin HFA 90 mcg 2 puffs every 4 hours as needed 10. Spiriva with HandiHaler 18 mcg Inhl CpDv 1 cap once daily 11. verapamil ER 120 mg [place] [address] u weekly every other week 13. vit b1 100 mg daily - PMHx: Cancer, Thyroid; COPD; Hypercholesterolemia; Hypertension; Pneumonia; - PSHx: Appendectomy; - : The pt / caregiver states he / she is not on anticoagulants. Home medication list is obtained from the patient. - Exposure Risk Screening:: None identified. Vital Signs: 06/09 17:15 BP 80 / 51 (auto/); rs3 17:20 BP 80 / 51; Pulse 110; Resp 18; Temp 99.0(TE); Pulse Ox 96% on R/A; Pain 0/10; nb2 17:21 Pulse 134 MON; Pulse Ox 95% ; rs3 17:30 BP 74 / 50 (auto/); rs3 17:30 Pulse 128 MON; Pulse Ox 95% ; rs3 17:45 BP 66 / 41 (auto/); rs3 17:45 Pulse 126 MON; Pulse Ox 96% ; rs3 18:00 BP 72 / 43 (auto/); rs3 18:00 Pulse 130 MON; Pulse Ox 96% ; rs3 18:02 BP 68 / 40 RA Supine (man/reg); rs3 18:15 BP 65 / 50 (auto/); rs3 18:15 Pulse 124 MON; Pulse Ox 98% ; rs3 18:30 BP 83 / 52 (auto/); rs3 18:30 Pulse 122 MON; Pulse Ox 97% ; rs3 19:15 BP 102 / 56 (auto/); kas2 19:16 Pulse 124 MON; Pulse Ox 98% ; kas2 20:40 BP 124 / 61 (auto/); kas2 20:40 Pulse 118 MON; Pulse Ox 98% ; kas2 20:42 BP 102 / 58 (auto/); kas2 20:42 Pulse 120 MON; Pulse Ox 98% ; kas2 20:43 BP 106 / 55 (auto/); kas2 20:43 Pulse 120 MON; Pulse Ox 97% ; kas2 20:57 BP 103 / 51 (auto/); kas2 20:57 Pulse 122 MON; Pulse Ox 98% ; kas2 21:12 BP 107 / 55 (auto/); kas2 21:12 Pulse 114 MON; kas2 21:23 Resp 20; Temp 98.1(O); kas2 MDM: 17:27 -Blood Culture (Adults Only), peripheral from different site, or from device/port/PICC br1 etc. if present ordered. 17:27 [employer] Specialist/Pulse Ox/q 15 min VS ordered. br1 17:27 Large bore IV x 2 ordered. br1 17:27 Misc. Nursing Order ordered. br1 17:27 CBC with Diff Ordered. EDMS 17:27 Lactic Acid (Jones tube on ice) Ordered. EDMS 17:27 Liver Profile Ordered. EDMS 17:27 MED Profile Ordered. EDMS 17:27 Urinalysis Ordered. EDMS 17:27 -Blood Culture Ordered. EDMS 17:27 Urine Culture Ordered. EDMS 17:28 Chest, 1 View Ordered. EDMS 17:28 ECG WITH READING ER PHYS+CARDIAG ordered. EDMS 17:28 Troponin Ordered. EDMS 17:28 BNP Ordered. EDMS 17:29 BLOOD CULTURES Ordered. EDMS 17:29 -Blood Culture (Adults Only), peripheral from different site, or from device/port/PICC deg etc. if present complete. 17:44 NS 0.9% 500 ml IV at bolus once ordered. br1 18:29 NS 0.9% 1000 ml IV at bolus once ordered. br1 18:31 CT ABD & PELVIS: No Contrast Ordered. EDMS 19:01 CBC with Diff Reviewed. br1 19:01 Liver Profile Reviewed. br1 19:01 MED Profile Reviewed. br1 19:01 Urinalysis Reviewed. br1 19:01 BNP Reviewed. br1 19:01 Lactic Acid (Jones tube on ice) Reviewed. br1 19:01 Troponin Reviewed. br1 19:22 Financial registration complete. [email or web address] 20:06 BED REQUEST+ADM ordered. EDMS 20:11 [facility] Payment Agreement was scanned into [facility] and attached to record. [email or web address] 21:18 Admission / Observation Status ordered. EDMS 21:19 CARDIAC MARKER PANEL Ordered. EDMS 21:19 PROTHROMBIN TIME PROFILE\E\INR Ordered. EDMS 21:19 CARDIAC MARKER PANEL Ordered. EDMS 21:19 CARDIAC MARKER PANEL Ordered. EDMS 21:20 CBC WITH DIFFERENTIAL Ordered. EDMS 21:20 BASIC METABOLIC PROFILE Ordered. EDMS 21:20 MAGNESIUM LEVEL Ordered. EDMS 21:20 THYROID STIMULATING HORMONE Ordered. EDMS 21:20 FREE T4 Ordered. EDMS 22:49 ECHOCARD,DOPPLER/COLOR FLOW ordered. EDMS 06/10 07:13 NPO FOR TEST/PROCEDURE ordered. EDMS 07:13 HEPATITIS PROFILE Ordered. EDMS 07:13 CYTOMEGALOVIRUS ANTIBODY IgG Ordered. EDMS 07:13 CYTOMEGALOVIRUS ANTIBODY IgM Ordered. EDMS 07:13 ANTINUCLEAR ANTIBODIES Ordered. EDMS 07:13 EXTRACTABLE NUCLEAR ANTIGEN Ordered. EDMS 07:13 ANTI DOUBLE STRAND DNA NI Ordered. EDMS 07:14 PATHOLOGIST REVIEW COMPREHENSI Ordered. EDMS 07:14 ANGIOTENSIN 1 CONVERTING ENZ Ordered. EDMS 07:14 MONO REFLEX EBV VCA IgM Ordered. EDMS 07:14 MONOSCREEN Ordered. EDMS 07:14 RHEUMATOID FACTOR QUANT Ordered. EDMS 07:14 LIVER DOPPLER FLOW Ordered. EDMS 07:19 ABD COMPLETE US Ordered. EDMS 07:39 CT Chest without contrast Ordered. EDMS 10:05 PROTHROMBIN TIME PROFILE\E\INR Ordered. EDMS 10:05 PT & APTT Ordered. EDMS 10:57 EBV VIRAL CAPSID antigen IGM Ordered. EDMS 11:03 MRSA SCREEN Ordered. EDMS 21:11 T-Sheet-- Draft Copy was scanned into [facility] and attached to record. klr Administered Medications: 06/09 18:02 Drug: NS 0.9% 500 ml [sodium chloride 0.9 % intravenous solution] Route: IV; Rate: rs3 bolus; Site: right antecubital; 18:35 Follow up: IV Status: Completed infusion rs3 18:34 Drug: NS 0.9% 1000 ml [sodium chloride 0.9 % intravenous solution] Route: IV; Rate: rs3 bolus; Site: right antecubital; Signatures: Dispatcher [employer] EDMS Latricia Romero, Production Tool Engineer Unit deg Alton Pires MD MD br1 Danita Rg RN RN rs3 Genesis Sellers, Reg Reg [email or web address] Gail Darden The chart was reviewed and I authenticate all verbal orders and agree with the evaluation and treatment provided.Corrections: (The following items were deleted from the chart) 06/10 07:13 06/09 21:19 NO ADDED SALT DIET ordered. EDMS EDMS Attachments: 20:11 [facility] Payment Agreement [email or web address] 06/10 21:11 T-Sheet-- Draft Copy klr Chart Complete MTDD
--- NOTE | 2016-06-12 12:27 | EDDOCDS ---
Nurse's Notes [facility] Name: Yaritza Fernandez Age: 70 yrs Sex: Female : 1945 Arrival Date: 06/09/2016 Time: 17:10 Bed Admit Hold Private MD: Andrade Kimball P. Diagnosis: Acute kidney failure;Hypotension;Splenomegaly, not elsewhere classified;Atrial fibrillation and flutter Presentation: 06/09 17:15 Presenting complaint: EMS states: SOB since . Was seen by Primary for UTI. rs3 Presenting complaint: Patient states: generalized weakness, wobbly with walking, low blood pressure 80/51 since . Adult Sepsis Screening: The patient does not have new or worsening altered mentation. Patient's respiratory rate is less than 22. Systolic blood pressure is greater than 100. Patient has a qSOFA score of 0- Negative Sepsis Screen. Suicide/Homicide risk assessment- the patient denies having any suicidal and/or homicidal ideations and does not present with any other emotional, behavioral or mental health complaints. Status: Patient is not a financial services education consultant or dependent. Transition of care: patient was not received from another setting of care. 17:15 Acuity: DANAY Level 3 rs3 17:15 Method Of Arrival: Ambulance rs3 Triage Assessment: 17:24 General: Appears in no apparent distress. Pain: Denies pain. Respiratory: Onset: The rs3 symptoms/episode began/occurred gradually. Historical: - Allergies: TETRACYCLINES (Swelling); SULFA (SULFONAMIDES) (Hives); Ambien (Anaphylaxis); - Home Meds: 1. aspirin 81 mg Oral TbEC 1 tab once daily 2. folic acid 1 mg Oral tab once daily 3. levothyroxine 112 mcg Oral cap once daily 4. Mag 64 64 mg oral TbER twice a day 5. oxybutynin chloride 10 mg Oral TG24 once daily 6. Pulmicort Turbuhaler 1 puff Inhl twice a day 7. pro Air 90 mcg inhaler 2 puffs every 4 hours as needed 8. simvastatin 20 mg Oral tab once daily 9. ventolin HFA 90 mcg 2 puffs every 4 hours as needed 10. Spiriva with HandiHaler 18 mcg Inhl CpDv 1 cap once daily 11. verapamil ER 120 mg [place] [id number] u weekly every other week 13. vit b1 100 mg daily - PMHx: Cancer, Thyroid; COPD; Hypercholesterolemia; Hypertension; Pneumonia; - PSHx: Appendectomy; - : The pt / caregiver states he / she is not on anticoagulants. Home medication list is obtained from the patient. - Exposure Risk Screening:: None identified. Screenin:48 Screening information is obtained from the patient. Fall risk: At risk due to gait rs3 disturbance. Assistance ADL's: requires no assistance with activities of daily living. Abuse/DV Screen: The patient / caregiver reports he/she is: not in a situation that causes fear, pain or injury. Nutritional screening: No deficits noted. Advance Directives: Currently, there is no health care proxy. home support is adequate. Assessment: 17:48 General: Appears in no apparent distress, Behavior is cooperative. Pain: Denies pain. rs3 Neurological: Level of Consciousness is awake, alert, Reports weakness. Cardiovascular: Capillary refill < 3 seconds Heart tones S1 S2 present. Cardiovascular: Rhythm is irregular Chest pain is denied. Respiratory: Airway is patent Respiratory effort is even, unlabored, Respiratory pattern is regular, symmetrical, Breath sounds are clear bilaterally. Derm: Skin is pink, warm & dry. 18:36 General: Appears in no apparent distress, family at bedside. denies of pain/distress. rs3 1st IVF NS bolus 500 cc complete. tolerated well. ordered 2nd bolus started. blood pressure systolic 70/40 . denies of dizziness at rest. . 19:10 General: Verbal report given by Noris Vale RN. Assumed care of patient at this time.. kas2 19:35 General: Appears in no apparent distress, comfortable, well nourished, well groomed, kas2 Behavior is appropriate for age, cooperative. Pain: Denies pain. Neurological: Level of Consciousness is awake, alert, Oriented to person, place, time. Cardiovascular: Capillary refill < 3 seconds Heart tones S1 S2 present Rhythm is irregular Chest pain is denied. Respiratory: Airway is patent Respiratory effort is even, unlabored, Respiratory pattern is regular, symmetrical, Breath sounds are clear bilaterally. Derm: Skin is intact, Skin is dry, Skin is pink, warm & dry. Skin temperature is warm. 20:37 General: Patient resting in bed with family at bedside. Appears comfortable. Denies kas2 pain or discomfort at this time. Airway patent and respiratory effort even and unlabored. Call maddox within reach. Will continue to monitor.. 21:22 General: Appears in no apparent distress, comfortable, Behavior is appropriate for age, kas2 cooperative. Pain: Denies pain. Neurological: Level of Consciousness is awake, alert, Oriented to person, place, time. Cardiovascular: Rhythm is atrial fibrillation. Respiratory: Airway is patent Respiratory effort is even, unlabored, Respiratory pattern is regular, symmetrical. Derm: Skin is intact, Skin is dry, Skin is pink, warm & dry. Skin temperature is warm. 21:35 General: Verbal report given to Tahira Hager RN. Patient moved to Room 20.. kas2 Vital Signs: 17:15 BP 80 / 51 (auto/); rs3 17:20 BP 80 / 51; Pulse 110; Resp 18; Temp 99.0(TE); Pulse Ox 96% on R/A; Pain 0/10; nb2 17:21 Pulse 134 MON; Pulse Ox 95% ; rs3 17:30 BP 74 / 50 (auto/); rs3 17:30 Pulse 128 MON; Pulse Ox 95% ; rs3 17:45 BP 66 / 41 (auto/); rs3 17:45 Pulse 126 MON; Pulse Ox 96% ; rs3 18:00 BP 72 / 43 (auto/); rs3 18:00 Pulse 130 MON; Pulse Ox 96% ; rs3 18:02 BP 68 / 40 RA Supine (man/reg); rs3 18:15 BP 65 / 50 (auto/); rs3 18:15 Pulse 124 MON; Pulse Ox 98% ; rs3 18:30 BP 83 / 52 (auto/); rs3 18:30 Pulse 122 MON; Pulse Ox 97% ; rs3 19:15 BP 102 / 56 (auto/); kas2 19:16 Pulse 124 MON; Pulse Ox 98% ; kas2 20:40 BP 124 / 61 (auto/); kas2 20:40 Pulse 118 MON; Pulse Ox 98% ; kas2 20:42 BP 102 / 58 (auto/); kas2 20:42 Pulse 120 MON; Pulse Ox 98% ; kas2 20:43 BP 106 / 55 (auto/); kas2 20:43 Pulse 120 MON; Pulse Ox 97% ; kas2 20:57 BP 103 / 51 (auto/); kas2 20:57 Pulse 122 MON; Pulse Ox 98% ; kas2 21:12 BP 107 / 55 (auto/); kas2 21:12 Pulse 114 MON; kas2 21:23 Resp 20; Temp 98.1(O); kas2 Vitals: 17:20 Log In time N/A- police car arrival. 2 ED Course: 17:11 Patient visited by Bob Bartlett PCA. jrd 17:11 Andrade Kimball is Private Physician. jrd 17:11 Patient visited by Bob Bartlett PCA. jrd 17:11 Danita Rg RN is Primary Nurse. jrd 17:11 Patient moved to Waiting jrd 17:11 Patient moved to 6 jrd 17:18 Alton Pires MD is Attending Physician. br1 17:18 Triage Initiated rs3 17:20 Placed in gown. Bed in low position. Call light in reach. Side rails up X2. Cardiac nb2 monitor on. Pulse ox on. NIBP on. 17:25 Patient visited by Alton Pires MD. br1 17:49 Urine Culture Sent. rs3 17:49 Lactic Acid (Jones tube on ice) Sent. rs3 17:49 Urinalysis Sent. rs3 17:54 EKG done. (by ED staff). Reviewed by Alton Pires MD. nb2 17:55 Patient visited by Malissa Hirsch. nb2 18:26 Patient visited by Danita Rg RN. rs3 19:09 Tahira Avalos RN is Primary Nurse. kas2 19:11 Patient visited by Tahira Avalos RN. kas2 19:37 Patient visited by Tahira Avalos RN. kas2 20:11 [facility] Payment Agreement was scanned into [employer] and attached to record. ks16 20:18 Elen Browning is Hospitalizing Provider. br1 20:33 CT ABD & PELVIS: No Contrast Returned. EDMS 20:39 Patient visited by Tahira Avalos RN. kas2 21:23 Patient visited by Tahira Avalos RN. kas2 21:28 Patient moved to 20 jlm 21:59 Patient moved to Admit Hold [facility] 06/10 02:55 Primary Nurse role handed off by Danita Rg RN [facility] 21:11 T-Sheet-- Draft Copy was scanned into [employer] and attached to record. klr Administered Medications: 06/09 18:02 Drug: NS 0.9% 500 ml [sodium chloride 0.9 % intravenous solution] Route: IV; Rate: rs3 bolus; Site: right antecubital; 18:35 Follow up: IV Status: Completed infusion rs3 18:34 Drug: NS 0.9% 1000 ml [sodium chloride 0.9 % intravenous solution] Route: IV; Rate: rs3 bolus; Site: right antecubital; Order Results: Lab Order: CBC with Diff; SPEC'M 06/09/16 17:32 Test: WHITE BLOOD COUNT; Value: 12.1; Range: 4.0-10.0; Abnormal: Above high normal; Units: K/mm3; Status: F Test: RED BLOOD COUNT; Value: 4.40; Range: 4.00-5.40; Units: M/mm3; Status: F Test: HEMOGLOBIN; Value: 13.4; Range: 12.0-16.0; Units: g/dl; Status: F Test: HEMATOCRIT; Value: 41.2; Range: 36.0-47.0; Units: %; Status: F Test: MEAN CORPUSCULAR VOLUME; Value: 93.8; Range: 80.0-96.0; Units: fl; Status: F Test: MEAN CORPUSCULAR HEMOGLOBIN; Value: 30.4; Range: 27.0-33.0; Units: pg; Status: F Test: MEAN CORPUSCULAR HGB CONC; Value: 32.4; Range: 32.0-36.5; Units: g/dl; Status: F Test: RED CELL DISTRIBUTION WIDTH; Value: 13.4; Range: 11.5-14.5; Units: %; Status: F Test: PLATELET COUNT, AUTOMATED; Value: 82; Range: 150-450; Abnormal: Below low normal; Units: k/mm3; Status: F Test: NEUTROPHILS %; Value: 78.2; Range: 36.0-66.0; Abnormal: Above high normal; Units: %; Status: F Test: LYMPH %; Value: 10.7; Range: 24.0-44.0; Abnormal: Below low normal; Units: %; Status: F Test: MONO %; Value: 6.0; Range: 0.0-5.0; Abnormal: Above high normal; Units: %; Status: F Test: EOS %; Value: 0.1; Range: 0.0-3.0; Units: %; Status: F Test: BASO %; Value: 0.1; Range: 0.0-1.0; Units: %; Status: F Test: LARGE UNSTAINED CELL %; Value: 4.8; Range: 0.0-4.0; Abnormal: Above high normal; Units: %; Status: F Test: NEUTROPHILS #; Value: 9.5; Range: 1.8-7.7; Abnormal: Above high normal; Units: K/mm3; Status: F Test: LYMPH #; Value: 1.3; Range: 1.5-4.5; Abnormal: Below low normal; Units: K/mm3; Status: F Test: MONO #; Value: 0.7; Range: 0.0-0.8; Units: K/mm3; Status: F Test: EOS #; Value: 0.0; Range: 0.0-0.50; Units: K/mm3; Status: F Test: BASO #; Value: 0.0; Range: 0.0-0.2; Units: K/mm3; Status: F Test: LARGE UNSTAINED CELL #; Value: 0.6; Range: 0.0-0.4; Abnormal: Above high normal; Units: K/mm3; Status: F Lab Order: Lactic Acid (Jones tube on ice); SPEC'M 06/09/16 17:33 Test: LACTIC ACID LEVEL, LACTATE; Value: 1.2; Range: 0.4-2.0; Units: MMOL/L; Status: F Lab Order: Liver Profile; SPEC'M 06/09/16 17:32 Test: AST/SGOT; Value: 3; Range: 15-37; Abnormal: Below low normal; Units: U/L; Status: F Test: ALT/SGPT; Value: 9; Range: 12-78; Abnormal: Below low normal; Units: U/L; Status: F Test: ALKALINE PHOSPHATASE; Value: 52; Range: 45-117; Units: U/L; Status: F Test: BILIRUBIN,TOTAL; Value: 0.3; Range: 0.2-1.0; Units: MG/DL; Status: F Test: BILIRUBIN,DIRECT; Value: < 0.1; Range: 0.0-0.2; Units: MG/DL; Status: F Test: TOTAL PROTEIN; Value: 5.8; Range: 6.4-8.2; Abnormal: Below low normal; Units: GM/DL; Status: F Test: ALBUMIN; Value: 3.0; Range: 3.2-5.2; Abnormal: Below low normal; Units: GM/DL; Status: F Test: ALBUMIN/GLOBULIN RATIO; Value: 1.07; Range: 1.00-1.93; Status: F Lab Order: MED Profile; SPEC'M 06/09/16 17:32 Test: GLUCOSE, FASTING; Value: 140; Range: 83-110; Abnormal: Above high normal; Units: MG/DL; Status: F Test: BLOOD UREA NITROGEN; Value: 112; Range: 7-18; Abnormal: Above high normal; Units: MG/DL; Status: F Test: CREATININE FOR GFR; Value: 2.45; Range: 0.55-1.02; Abnormal: Above high normal; Units: MG/DL; Status: F Test: GLOMERULAR FILTRATION RATE; Value: 20.7; Range: >39; Abnormal: Below low normal; Status: F Test: SODIUM LEVEL; Value: 143; Range: 136-145; Units: MEQ/L; Status: F Test: POTASSIUM SERUM; Value: 3.6; Range: 3.5-5.1; Units: MEQ/L; Status: F Test: CHLORIDE LEVEL; Value: 111; Range: 98-107; Abnormal: Above high normal; Units: MEQ/L; Status: F Test: CARBON DIOXIDE LEVEL; Value: 18; Range: 21-32; Abnormal: Below low normal; Units: MEQ/L; Status: F Test: ANION GAP; Value: 14; Range: 8-16; Units: MEQ/L; Status: F Test: CALCIUM LEVEL; Value: 10.2; Range: 8.8-10.2; Units: MG/DL; Status: F Test Note: ; Units are mL/min/1.73 m2 Chronic Kidney Disease Staging per NKF: Stage I & II GFR >=60 Normal to Mildly Decreased Stage III GFR 30-59 Moderately Decreased Stage IV GFR 15-29 Severely Decreased Stage V GFR <15 Very Little GFR Left ESRD GFR <15 on FORGE SHOP MACHINE REPAIRER Lab Order: Urinalysis; SPEC'M 06/09/16 17:32 Test: APPEARANCE, URINE; Value: CLOUDY; Range: CLEAR; Abnormal: Above high normal; Status: F Test: COLOR, URINE; Value: YELLOW; Range: YELLOW; Status: F Test: PH,URINE; Value: 5.0; Range: 5.0-9.0; Units: UNITS; Status: F Test: SPECIFIC GRAVITY URINE AUTO; Value: 1.013; Range: 1.002-1.035; Status: F Test: PROTEIN, URINE AUTO; Value: 2+; Range: NEGATIVE; Abnormal: Above high normal; Units: mg/dL; Status: F Test: GLUCOSE, URINE (UA) AUTO; Value: 1+; Range: NEGATIVE; Abnormal: Above high normal; Units: mg/dL; Status: F Test: KETONE, URINE AUTO; Value: NEGATIVE; Range: NEGATIVE; Units: mg/dL; Status: F Test: UROBILINOGEN, URINE AUTO; Value: 0.2; Range: 0.0-2.0; Units: mg/dL; Status: F Test: BILIRUBIN, URINE AUTO; Value: NEGATIVE; Range: NEGATIVE; Status: F Test: NITRITE, URINE AUTO; Value: NEGATIVE; Range: NEGATIVE; Status: F Test: LEUKOCYTE ESTERASE, URINE AUTO; Value: 1+; Range: NEGATIVE; Abnormal: Above high normal; Status: F Test: BLOOD, URINE BLOOD; Value: 3+; Range: NEGATIVE; Abnormal: Above high normal; Status: F Test: WBC, URINE AUTO; Value: 39; Range: 0-3; Abnormal: Above high normal; Units: /HPF; Status: F Test: RBC, URINE AUTO; Value: TNTC; Range: 0-3; Abnormal: Above high normal; Units: /HPF; Status: F Test: BACTERIA, URINE AUTO; Value: 1+; Range: NEGATIVE; Abnormal: Above high normal; Status: F Test: SQUAMOUS EPITHELIAL CELL UR AU; Value: 50; Range: 0-6; Units: /HPF; Status: F Test: HYALINE CAST, URINE AUTO; Value: 0; Range: 0-1; Units: /LPF; Status: F Lab Order: Troponin; SPEC'M 06/09/16 17:32 Test: TROPONIN I; Value: < 0.02; Range: < 0.10; Units: NG/ML; Status: F Test Note: ; Troponin I Reference Interval for [employer] LOCI: 99th Percentile= 0.00-0.045 ng/ml Risk Stratification: <= 0.10 ng/ml Decreased Risk for Adverse Clinical Events. 0.10-1.50 ng/ml Increased Risk for Adverse Clinical Events. Evaluation of additional criterion and/or repeat testing in 2-6 hours is suggested to rule out myocardial damage. >= 1.50 ng/ml Indicative of Myocardial Injury. Lab Order: BNP; [facility] 06/09/16 17:32 Test: BRAIN NATRIURETIC PEPTIDE; Value: 293; Range: <100; Abnormal: Above high normal; Units: PG/ML; Status: F Lab Order: CARDIAC MARKER PANEL; [facility] 06/09/16 22:15 Test: CPK CREATINE PHOSPHOKINASE; Value: 10; Range: 26-192; Abnormal: Below low normal; Units: U/L; Status: F Test: CK-MB VALUE MASS; Value: 1.0; Range: 0.0-3.6; Units: NG/ML; Status: F Test: MB/CK RELATIVE INDEX; Value: 10.00; Range: < OR =4; Abnormal: Above high normal; Status: F Test: TROPONIN I; Value: < 0.02; Range: < 0.10; Units: NG/ML; Status: F Test Note: ; DIAGNOSIS CRITERIA MMB ng/ml Relative Index (RI) NON-AMI < or = 5 N/A JONES ZONE > 5 < or = 4 AMI > 5 > 4 Lab Order: PROTHROMBIN TIME PROFILE\E\INR; [facility] 06/09/16 17:32 Test: PROTHROMBIN TIME; Value: 13.5; Range: 12.3-14.5; Units: SECONDS; Status: F Test: INR; Value: 1.02; Status: F Test Note: ; THERAPUTIC HUMAN INR VALUES INDICATIONS NORMAL RANGES PROPHYLAXIS/TREATMENT OF: VENOUS THROMBOSIS 2.0-3.0 PULMONARY EMBOLISM 2.0-3.0 PREVENTION OF SYSTEMIC EMBOLISM FROM: TISSUE HEART VALVES 2.0-3.0 ACUTE MYOCARDIAL INFARCTION 2.0-3.0 VALVULAR HEART DISEASE 2.0-3.0 ATRIAL FIBRILLATION 2.0-3.0 MECHANICAL VALVES(HIGH RISK) 2.5-3.5 RECURRENT MYOCARDIAL INFARCTION 2.5-3.5 Lab Order: CARDIAC MARKER PANEL; SPEC'M 06/10/16 05:32 Test: CPK CREATINE PHOSPHOKINASE; Value: 13; Range: 26-192; Abnormal: Below low normal; Units: U/L; Status: F Test: CK-MB VALUE MASS; Value: 1.0; Range: 0.0-3.6; Units: NG/ML; Status: F Test: MB/CK RELATIVE INDEX; Value: 7.69; Range: < OR =4; Abnormal: Above high normal; Status: F Test: TROPONIN I; Value: < 0.02; Range: < 0.10; Units: NG/ML; Status: F Test Note: ; DIAGNOSIS CRITERIA MMB ng/ml Relative Index (RI) NON-AMI < or = 5 N/A JONES ZONE > 5 < or = 4 AMI > 5 > 4 Lab Order: CBC WITH DIFFERENTIAL; SPEC'M 06/10/16 05:32 Test: WHITE BLOOD COUNT; Value: 11.9; Range: 4.0-10.0; Abnormal: Above high normal; Units: K/mm3; Status: F Test: RED BLOOD COUNT; Value: 3.74; Range: 4.00-5.40; Abnormal: Below low normal; Units: M/mm3; Status: F Test: HEMOGLOBIN; Value: 11.5; Range: 12.0-16.0; Abnormal: Below low normal; Units: g/dl; Status: F Test: HEMATOCRIT; Value: 35.7; Range: 36.0-47.0; Abnormal: Below low normal; Units: %; Status: F Test: MEAN CORPUSCULAR VOLUME; Value: 95.4; Range: 80.0-96.0; Units: fl; Status: F Test: MEAN CORPUSCULAR HEMOGLOBIN; Value: 30.8; Range: 27.0-33.0; Units: pg; Status: F Test: MEAN CORPUSCULAR HGB CONC; Value: 32.3; Range: 32.0-36.5; Units: g/dl; Status: F Test: RED CELL DISTRIBUTION WIDTH; Value: 14.3; Range: 11.5-14.5; Units: %; Status: F Test: PLATELET COUNT, AUTOMATED; Value: 63; Range: 150-450; Abnormal: Below low normal; Units: k/mm3; Status: F Test: NEUTROPHILS %; Value: 68.5; Range: 36.0-66.0; Abnormal: Above high normal; Units: %; Status: F Test: LYMPH %; Value: 13.1; Range: 24.0-44.0; Abnormal: Below low normal; Units: %; Status: F Test: MONO %; Value: 10.3; Range: 0.0-5.0; Abnormal: Above high normal; Units: %; Status: F Test: EOS %; Value: 0.2; Range: 0.0-3.0; Units: %; Status: F Test: BASO %; Value: 0.5; Range: 0.0-1.0; Units: %; Status: F Test: LARGE UNSTAINED CELL %; Value: 7.4; Range: 0.0-4.0; Abnormal: Above high normal; Units: %; Status: F Test: NEUTROPHILS #; Value: 8.1; Range: 1.8-7.7; Abnormal: Above high normal; Units: K/mm3; Status: F Test: LYMPH #; Value: 2.4; Range: 1.5-4.5; Units: K/mm3; Status: F Test: MONO #; Value: 1.2; Range: 0.0-0.8; Abnormal: Above high normal; Units: K/mm3; Status: F Test: EOS #; Value: 0.0; Range: 0.0-0.50; Units: K/mm3; Status: F Test: BASO #; Value: 0.1; Range: 0.0-0.2; Units: K/mm3; Status: F Test: LARGE UNSTAINED CELL #; Value: 0.9; Range: 0.0-0.4; Abnormal: Above high normal; Units: K/mm3; Status: F Lab Order: BASIC METABOLIC PROFILE; SPEC'M 06/10/16 05:32 Test: GLUCOSE, FASTING; Value: 88; Range: 83-110; Units: MG/DL; Status: F Test: BLOOD UREA NITROGEN; Value: 93; Range: 7-18; Abnormal: Above high normal; Units: MG/DL; Status: F Test: CREATININE FOR GFR; Value: 1.72; Range: 0.55-1.02; Abnormal: Above high normal; Units: MG/DL; Status: F Test: GLOMERULAR FILTRATION RATE; Value: 31.1; Range: >39; Abnormal: Below low normal; Status: F Test: SODIUM LEVEL; Value: 148; Range: 136-145; Abnormal: Above high normal; Units: MEQ/L; Status: F Test: POTASSIUM SERUM; Value: 3.5; Range: 3.5-5.1; Units: MEQ/L; Status: F Test: CHLORIDE LEVEL; Value: 116; Range: 98-107; Abnormal: Above high normal; Units: MEQ/L; Status: F Test: CARBON DIOXIDE LEVEL; Value: 20; Range: 21-32; Abnormal: Below low normal; Units: MEQ/L; Status: F Test: ANION GAP; Value: 12; Range: 8-16; Units: MEQ/L; Status: F Test: CALCIUM LEVEL; Value: 8.6; Range: 8.8-10.2; Units: MG/DL; Status: F Test Note: ; Units are mL/min/1.73 m2 Chronic Kidney Disease Staging per NKF: Stage I & II GFR >=60 Normal to Mildly Decreased Stage III GFR 30-59 Moderately Decreased Stage IV GFR 15-29 Severely Decreased Stage V GFR <15 Very Little GFR Left ESRD GFR <15 on FORGE SH[employer] MACHINE REPAIRER Lab Order: MAGNESIUM LEVEL; SPEC'06/10/16 05:32 Test: MAGNESIUM LEVEL; Value: 1.9; Range: 1.8-2.4; Units: MG/DL; Status: F Lab Order: THYROID STIMULATING HORMONE; SPEC06/10/16 05:32 Test: THYROID STIMULATING HORMONE; Value: 0.558; Range: 0.358-3.740; Units: uIU/ML; Status: F Lab Order: FREE T4; SPEC06/10/16 05:32 Test: FREE T4; Value: 0.77; Range: 0.76-1.46; Units: NG/DL; Status: F Lab Order: HEPATITIS PROFILE; SPEC06/10/16 10:20 Test: HEPATITIS C VIRUS NI INDEX; Range: <0.8; Units: INDEX; Status: I Test: HEPATITIS B SURFACE ANTIGEN; Range: NEGATIVE; Status: I Test: HEPATITIS B CORE ANTIBODY IGM; Range: NEGATIVE; Status: I Test: HEPATITIS A ANTIBODY IGM; Range: NEGATIVE; Status: I Lab Order: PATHOLOGIST REVIEW COMPREHENSI; SPEC' 06/10/16 05:32 Test: SLIDE REVIEW; Value: Report; Status: F Test: SOURCE; Value: PERIPHERAL SMEAR; Status: F Test: REASON FOR REVIEW; Value: COMPREHENSIVE REVIEW; Status: F Test Note: ; Slide and/or specimen referred to Pathologist for review. Results of the review are located in the EMR Pathology module under Peripheral Smear when completed. Lab Order: MONO REFLEX EBV VCA IgM; SPEC'M 06/10/16 10:20 Test: MONO REFLEX EBV VCA IgM; Value: NEGATIVE; Range: NEGATIVE; Status: F Lab Order: MONOSCREEN; SPEC' 06/10/16 10:20 Test: MONO SCRN; Range: NEGATIVE; Status: I Lab Order: RHEUMATOID FACTOR QUANT; SPEC' 06/10/16 10:20 Test: RHEUMATOID FACTOR QUANT; Value: < 10.0; Range: 0-15.0; Units: IU/ML; Status: F Lab Order: PT & APTT; SPEC 06/10/16 10:21 Test: PROTHROMBIN TIME; Value: 16.0; Range: 12.3-14.5; Abnormal: Above high normal; Units: SECONDS; Status: F Test: INR; Value: 1.27; Status: F Test: PARTIAL THROMBOPLASTIN TIME; Value: 30.9; Range: 26.6-37.1; Units: SECONDS; Status: F Test Note: ; THERAPUTIC HUMAN INR VALUES INDICATIONS NORMAL RANGES PROPHYLAXIS/TREATMENT OF: VENOUS THROMBOSIS 2.0-3.0 PULMONARY EMBOLISM 2.0-3.0 PREVENTION OF SYSTEMIC EMBOLISM FROM: TISSUE HEART VALVES 2.0-3.0 ACUTE MYOCARDIAL INFARCTION 2.0-3.0 VALVULAR HEART DISEASE 2.0-3.0 ATRIAL FIBRILLATION 2.0-3.0 MECHANICAL VALVES(HIGH RISK) 2.5-3.5 RECURRENT MYOCARDIAL INFARCTION 2.5-3.5 Radiology Order: CT ABD & PELVIS: No Contrast Test: CT ABD & PELVIS: No Contrast REASON FOR EXAMINATION: Abdomen Pain; ; CLINICAL HISTORY: Abdominal pain.; TECHNIQUE: Multiple axial, sagittal and coronal CT images were obtained through the abdomen and pelvi; s without administration of oral or IV contrast material.; COMMENTS:; The liver is of uniform attenuation without mass or defect. There is no intra or extrahepatic biliary; ductal dilatation. The spleen is massively enlarged. The gallbladder is within normal limits. The pa; ncreas is of normal contour and attenuation characteristics. There is no evidence of adrenal mass.; The kidneys are normal in size, shape and configuration. No renal or ureteral calculi are identified.; There is no hydroureter or hydronephrosis.; There is no evidence for appendicitis. There is no bowel wall thickening. No evidence for small or la; rge bowel obstruction. There is no evidence of abdominal ascites or lymphadenopathy.; There is no evidence of intrinsic or extrinsic bladder mass. There is no pelvic ascites or lymphadeno; jorge. The uterus and ovaries are atrophic.; Images of the lung bases show no evidence of pleural or parenchymal mass. There are no pleural effusi; ons.; The bony structures are free of lytic or blastic lesions. Multilevel degenerative changes are seen in; volving the thoracolumbar spine.; Scattered calcifications are seen involving the aorta and major branches compatible with atherosclero; sis.; IMPRESSION:; Massive splenomegaly. Otherwise unremarkable study; Thank you for your kind referral of this patient.; ; Outcome: 20:18 Decision to Hospitalize by Provider. br1 06/10 11:25 Patient left the ED. deg Signatures: Dispatcher [employer] EDMS Latricia Romero, Medical Orderly Unit deg Alton Pires MD MD br1 Danita Rg RN RN rs3 Ainsley Rodriguez RN RN [id number] Abner Santiago RN RN Yahaira Herman, Medical Orderly Unit jlm Bob Bartlett, [employer] Genesis Navarro, Reg Reg [id number] Tahira Avalos RN RN Gail Bledsoe Nicole nb2 Chart Complete MTDD
--- NOTE | 2016-06-12 12:27 | EDDOCDS ---
Physician Documentation [facility] Name: Yaritza Fernandez Age: 70 yrs Sex: Female : 1945 Arrival Date: 06/09/2016 Time: 17:10 Bed Admit Hold Private MD: Andrade Kimball P. Disposition: 06/09/16 20:18 Hospitalization ordered by Elen Browning for Inpatient Admission. Preliminary diagnosis are Acute kidney failure, Hypotension, Splenomegaly, not elsewhere classified, Atrial fibrillation and flutter. - Bed requested for Admit. - Status is Inpatient Admission. deg - Condition is Stable. - Problem is new. - Symptoms are unchanged. Historical: - Allergies: TETRACYCLINES (Swelling); SULFA (SULFONAMIDES) (Hives); Ambien (Anaphylaxis); - Home Meds: 1. aspirin 81 mg Oral TbEC 1 tab once daily 2. folic acid 1 mg Oral tab once daily 3. levothyroxine 112 mcg Oral cap once daily 4. Mag 64 64 mg oral TbER twice a day 5. oxybutynin chloride 10 mg Oral TG24 once daily 6. Pulmicort Turbuhaler 1 puff Inhl twice a day 7. pro Air 90 mcg inhaler 2 puffs every 4 hours as needed 8. simvastatin 20 mg Oral tab once daily 9. ventolin HFA 90 mcg 2 puffs every 4 hours as needed 10. Spiriva with HandiHaler 18 mcg Inhl CpDv 1 cap once daily 11. verapamil ER 120 [address] [place] [address] u weekly every other week 13. vit b1 100 mg daily - PMHx: Cancer, Thyroid; COPD; Hypercholesterolemia; Hypertension; Pneumonia; - PSHx: Appendectomy; - : The pt / caregiver states he / she is not on anticoagulants. Home medication list is obtained from the patient. - Exposure Risk Screening:: None identified. Vital Signs: 06/09 17:15 BP 80 / 51 (auto/); rs3 17:20 BP 80 / 51; Pulse 110; Resp 18; Temp 99.0(TE); Pulse Ox 96% on R/A; Pain 0/10; nb2 17:21 Pulse 134 MON; Pulse Ox 95% ; rs3 17:30 BP 74 / 50 (auto/); rs3 17:30 Pulse 128 MON; Pulse Ox 95% ; rs3 17:45 BP 66 / 41 (auto/); rs3 17:45 Pulse 126 MON; Pulse Ox 96% ; rs3 18:00 BP 72 / 43 (auto/); rs3 18:00 Pulse 130 MON; Pulse Ox 96% ; rs3 18:02 BP 68 / 40 RA Supine (man/reg); rs3 18:15 BP 65 / 50 (auto/); rs3 18:15 Pulse 124 MON; Pulse Ox 98% ; rs3 18:30 BP 83 / 52 (auto/); rs3 18:30 Pulse 122 MON; Pulse Ox 97% ; rs3 19:15 BP 102 / 56 (auto/); kas2 19:16 Pulse 124 MON; Pulse Ox 98% ; kas2 20:40 BP 124 / 61 (auto/); kas2 20:40 Pulse 118 MON; Pulse Ox 98% ; kas2 20:42 BP 102 / 58 (auto/); kas2 20:42 Pulse 120 MON; Pulse Ox 98% ; kas2 20:43 BP 106 / 55 (auto/); kas2 20:43 Pulse 120 MON; Pulse Ox 97% ; kas2 20:57 BP 103 / 51 (auto/); kas2 20:57 Pulse 122 MON; Pulse Ox 98% ; kas2 21:12 BP 107 / 55 (auto/); kas2 21:12 Pulse 114 MON; kas2 21:23 Resp 20; Temp 98.1(O); kas2 MDM: 17:27 -Blood Culture (Adults Only), peripheral from different site, or from device/port/PICC br1 etc. if present ordered. 17:27 Developer Advocate/Pulse Ox/q 15 min VS ordered. br1 17:27 Large bore IV x 2 ordered. br1 17:27 Misc. Nursing Order ordered. br1 17:27 CBC with Diff Ordered. EDMS 17:27 Lactic Acid (Jones tube on ice) Ordered. EDMS 17:27 Liver Profile Ordered. EDMS 17:27 MED Profile Ordered. EDMS 17:27 Urinalysis Ordered. EDMS 17:27 -Blood Culture Ordered. EDMS 17:27 Urine Culture Ordered. EDMS 17:28 Chest, 1 View Ordered. EDMS 17:28 ECG WITH READING ER PHYS+CARDIAG ordered. EDMS 17:28 Troponin Ordered. EDMS 17:28 BNP Ordered. EDMS 17:29 BLOOD CULTURES Ordered. EDMS 17:29 -Blood Culture (Adults Only), peripheral from different site, or from device/port/PICC deg etc. if present complete. 17:44 NS 0.9% 500 ml IV at bolus once ordered. br1 18:29 NS 0.9% 1000 ml IV at bolus once ordered. br1 18:31 CT ABD & PELVIS: No Contrast Ordered. EDMS 19:01 CBC with Diff Reviewed. br1 19:01 Liver Profile Reviewed. br1 19:01 MED Profile Reviewed. br1 19:01 Urinalysis Reviewed. br1 19:01 BNP Reviewed. br1 19:01 Lactic Acid (Jones tube on ice) Reviewed. br1 19:01 Troponin Reviewed. br1 19:22 Financial registration complete. [email or web address] 20:06 BED REQUEST+ADM ordered. EDMS 20:11 [facility] Payment Agreement was scanned into [employer] and attached to record. [email or web address] 21:18 Admission / Observation Status ordered. EDMS 21:19 CARDIAC MARKER PANEL Ordered. EDMS 21:19 PROTHROMBIN TIME PROFILE\E\INR Ordered. EDMS 21:19 CARDIAC MARKER PANEL Ordered. EDMS 21:19 CARDIAC MARKER PANEL Ordered. EDMS 21:20 CBC WITH DIFFERENTIAL Ordered. EDMS 21:20 BASIC METABOLIC PROFILE Ordered. EDMS 21:20 MAGNESIUM LEVEL Ordered. EDMS 21:20 THYROID STIMULATING HORMONE Ordered. EDMS 21:20 FREE T4 Ordered. EDMS 22:49 ECHOCARD,DOPPLER/COLOR FLOW ordered. EDMS 06/10 07:13 NPO FOR TEST/PROCEDURE ordered. EDMS 07:13 HEPATITIS PROFILE Ordered. EDMS 07:13 CYTOMEGALOVIRUS ANTIBODY IgG Ordered. EDMS 07:13 CYTOMEGALOVIRUS ANTIBODY IgM Ordered. EDMS 07:13 ANTINUCLEAR ANTIBODIES Ordered. EDMS 07:13 EXTRACTABLE NUCLEAR ANTIGEN Ordered. EDMS 07:13 ANTI DOUBLE STRAND DNA NI Ordered. EDMS 07:14 PATHOLOGIST REVIEW COMPREHENSI Ordered. EDMS 07:14 ANGIOTENSIN 1 CONVERTING ENZ Ordered. EDMS 07:14 MONO REFLEX EBV VCA IgM Ordered. EDMS 07:14 MONOSCREEN Ordered. EDMS 07:14 RHEUMATOID FACTOR QUANT Ordered. EDMS 07:14 LIVER DOPPLER FLOW Ordered. EDMS 07:19 ABD COMPLETE US Ordered. EDMS 07:39 CT Chest without contrast Ordered. EDMS 10:05 PROTHROMBIN TIME PROFILE\E\INR Ordered. EDMS 10:05 PT & APTT Ordered. EDMS 10:57 EBV VIRAL CAPSID antigen IGM Ordered. EDMS 11:03 MRSA SCREEN Ordered. EDMS 21:11 T-Sheet-- Draft Copy was scanned into [employer] and attached to record. klr Administered Medications: 06/09 18:02 Drug: NS 0.9% 500 ml [sodium chloride 0.9 % intravenous solution] Route: IV; Rate: rs3 bolus; Site: right antecubital; 18:35 Follow up: IV Status: Completed infusion rs3 18:34 Drug: NS 0.9% 1000 ml [sodium chloride 0.9 % intravenous solution] Route: IV; Rate: rs3 bolus; Site: right antecubital; Signatures: Dispatcher [employer] EDMS Latricia Romero, Optical Worker Unit deg Alton Pires MD MD br1 Danita Rg RN RN rs3 Genesis Sellers, Reg Reg [email or web address] Gail Darden The chart was reviewed and I authenticate all verbal orders and agree with the evaluation and treatment provided.Corrections: (The following items were deleted from the chart) 06/10 07:13 06/09 21:19 NO ADDED SALT DIET ordered. EDMS EDMS Attachments: 20:11 [facility] Payment Agreement [email or web address] 06/10 21:11 T-Sheet-- Draft Copy klr Chart Complete MTDD
[2016-06-12] MEDS: D5W 1,000 ML IV SCH (15:51)
[2016-06-12 16:00] VITALS: BP_SYST 129; BP_SYST 130; BP_SYST 132; BP_DIAS 73; BP_DIAS 75; BP_DIAS 81
[2016-06-12 18:39] LABS: ANION GAP 6 MEQ/L (8-16); BLOOD UREA NITROGEN 20 MG/DL (7-18); CALCIUM LEVEL 7.2 MG/DL (8.8-10.2); CARBON DIOXIDE LEVEL 22 MEQ/L (21-32); CHLORIDE LEVEL 122 MEQ/L (98-107); CREATININE FOR GFR 0.79 MG/DL (0.55-1.02); GLOMERULAR FILTRATION RATE > 60.0 (>39); GLUCOSE, FASTING 121 MG/DL (83-110); POTASSIUM SERUM 3.9 MEQ/L (3.5-5.1); SODIUM LEVEL 150 MEQ/L (136-145)
[2016-06-12 19:40] VITALS: BP 101/78
[2016-06-12] MEDS: cefTRIAXone SOD 1 GM in D5W MINI-BAG PLUS 50 ML IV SCH (20:59)
[2016-06-12] MEDS: METOPROLOL TART 12.5 MG PER 1/2 TAB PO SCH (20:59)
--- NOTE | 2016-06-12 21:17 | IPN ---
DATE: 06/12/2016 SUBJECTIVE: Patient is seen and examined in the room today. Patient is still experiencing tachycardia. Patient continues to be on intravenous (IV) fluids and patient's systolic pressure is maintained about 100. Patient does not have any overnight events reported. OBJECTIVE: VITAL SIGNS: Temperature 97, pulse 120 (on cardiac telemetry between 8 p.m. and 8 a.m. patient has multiple episodes of tachycardia with heart rate around 140-160s), respiration rate 18, blood pressure 111/67, pulse oximetry 97% in room air. GENERAL: No sign of acute distress, alert and oriented times three. HEENT: Normocephalic, atraumatic. Extraocular motors grossly intact. No jugular venous distention (JVD). LUNGS: Diminished breath sounds. No wheezes or rhonchi. CARDIOVASCULAR: Tachycardic with heart rate persistently greater than 110. ABDOMEN: Soft, nontender, nondistended. Bowel sounds present. EXTREMITIES: No edema. No sign of cyanosis. LABORATORY DATA: WBC 6.3, hemoglobin 9.9, hematocrit 32, platelet count 47. Sodium 148, potassium 3.9, chloride 120, carbon dioxide 22, BUN 23, creatinine 0.8, GFR greater than 60, fasting glucose 115, calcium 7.4. ASSESSMENT AND PLAN: 1. Sepsis secondary to urinary tract infection (UTI). Patient continues to have soft blood pressure. Patient has been continuing to get IV fluids. Patient also has tachycardia. Currently, due to continued increase of sodium and chloride from the basic metabolic panel (BMP), will switch fluids to dextrose 5% water (D5W) and will continue to monitor electrolytes. Patient is continued on the Rocephin and white count is improving. Initial urine culture obtained during admission seems to have contamination, possibly due to multiple organisms detected on the urine culture. The repeat culture was obtained on 06/11/2016. Patient had already received 2-3 days dose of antibiotics and the second set of urine culture came back showing no growth due to antibiotic use. In review of her history, patient has frequent urinary tract infection (UTI) with Klebsiella and Escherichia (E) coli, both sensitive to the Rocephin. 2. Frequent urinary tract infection. Currently patient is being treated with IV Rocephin and her symptoms are improving. However, due to finding of splenomegaly, some immunological tests being performed, results are pending. The case was also discussed with hematology/commercial marketing specialist, Dr. Radha June. Part of differential could be blood disease and patient may benefit from outpatient hematology/oncology referral and patient may need a bone marrow biopsy for blood disease. 3. Hypernatremia with hyperchloremia, secondary to the sodium and chloride given through the IV fluid. We will adjust the IV fluid to dextrose 5% water (D5W). Will check electrolytes with metabolic panel. 4. History of cor pulmonale, stable. 5. Acute kidney injury, secondary to severe hypotension and secondary to sepsis from urinary tract infection (UTI). Renal function is improving with IV fluids. 6. Hypotension. Patient continues to have soft blood pressure. She has been given IV fluids at 75 mL/hour. Patient's systolic blood pressure has been around 100s. Will continue with IV fluids. 7. Splenomegaly. Ordered diagnostic tests are pending. Patient may benefit from hematology/oncology outpatient evaluation. 8. Hyperlipidemia. Continue home medication. 9. Hypothyroidism. Continue with Synthroid at 0.112 mg. 10. Mild to moderate mitral valve insufficiency. 11. History of atrial tachycardia with questionable prior atrial fibrillation. Patient is on Eliquis. 12. Deep venous thrombosis (DVT) prophylaxis. Patient is on Eliquis. MTDD
[2016-06-13] VITALS (7 sets, daily range): BP systolic 101–139; BP diastolic 58–79
[2016-06-13 00:06] LABS: CYTOMEGALOVIRUS IgG ANTIBODY <0.60 U/mL (0.00-0.59)
[2016-06-13] MEDS: ACETAMINOPHEN TAB 650MG DOSE (2X325MG) PO PRN ×4 (00:52→20:04)
[2016-06-13 01:04] LABS: ANION GAP 7 MEQ/L (8-16); BLOOD UREA NITROGEN 17 MG/DL (7-18); CALCIUM LEVEL 6.9 MG/DL (8.8-10.2); CARBON DIOXIDE LEVEL 21 MEQ/L (21-32); CHLORIDE LEVEL 120 MEQ/L (98-107); CREATININE FOR GFR 0.74 MG/DL (0.55-1.02); GLOMERULAR FILTRATION RATE > 60.0 (>39); GLUCOSE, FASTING 102 MG/DL (83-110); SODIUM LEVEL 148 MEQ/L (136-145)
[2016-06-13 05:44] LABS: DIFF SLIDE NUMBER 30; MEAN CORPUSCULAR HEMOGLOBIN 30.8 pg (27.0-33.0); MEAN CORPUSCULAR HGB CONC 31.5 g/dl (32.0-36.5); MEAN CORPUSCULAR VOLUME 97.8 fl (80.0-96.0); RED CELL DISTRIBUTION WIDTH 13.7 % (11.5-14.5); WHITE BLOOD COUNT 6.1 K/mm3 (4.0-10.0)
[2016-06-13 05:49] LABS: PLATELET COUNT, AUTOMATED 40 k/mm3 (150-450)
[2016-06-13 05:57] LABS: ANION GAP 6 MEQ/L (8-16); BLOOD UREA NITROGEN 16 MG/DL (7-18); CALCIUM LEVEL 7.1 MG/DL (8.8-10.2); CARBON DIOXIDE LEVEL 22 MEQ/L (21-32); CHLORIDE LEVEL 119 MEQ/L (98-107); CREATININE FOR GFR 0.68 MG/DL (0.55-1.02); GLOMERULAR FILTRATION RATE > 60.0 (>39); GLUCOSE, FASTING 99 MG/DL (83-110); POTASSIUM SERUM 3.8 MEQ/L (3.5-5.1); SODIUM LEVEL 147 MEQ/L (136-145)
[2016-06-13 06:04] LABS: MAGNESIUM LEVEL 1.7 MG/DL (1.8-2.4)
[2016-06-13] MEDS: LEVOTHYROXINE 0.112 MG TAB (112 MCG) PO SCH (06:05)
[2016-06-13 06:20] LABS: BANDS 1 % (< 11); GIANT PLATELETS 1+
[2016-06-13] MEDS: BUDESONIDE 0.5 MG/2 ML INHALATION SUSPENSION INH SCH ×2 (07:34→19:45)
[2016-06-13] MEDS: TIOTROPIUM INHALER/CAPSULE (SPIRIVA) INH SCH (07:34)
[2016-06-13 07:36] LABS: FERRITIN 154 NG/ML (8-252); PERCENT SATURATION 11.5 % (13.2-37.4); TOTAL IRON BINDING CAPACITY 157 UG/DL (250-450)
[2016-06-13] MEDS: APIXABAN 5 MG TAB (ELIQUIS) PO SCH ×2 (08:27→20:07)
[2016-06-13] MEDS: FOLIC ACID 1 MG TAB PO SCH (08:28)
[2016-06-13] MEDS: MAGNESIUM OXIDE 400 MG TAB (MAG-OX) PO SCH (08:28)
[2016-06-13] MEDS: THIAMINE 100 MG TAB PO SCH (08:28)
[2016-06-13] MEDS: oxyBUTYnin *DITROPAN XL* 5 MG TABCR PO SCH (08:28)
[2016-06-13] MEDS: D5W 1,000 ML IV SCH (08:29)
[2016-06-13] MEDS: SIMVASTATIN 20 MG TAB PO SCH (08:29)
[2016-06-13] MEDS: METOPROLOL TART 12.5 MG PER 1/2 TAB PO SCH ×2 (08:29→20:07)
[2016-06-13 09:18] LABS: FOLATE > 24.0 NG/ML; VITAMIN B12 LEVEL 690 PG/ML
[2016-06-13 12:47] LABS: ANION GAP 6 MEQ/L (8-16); BLOOD UREA NITROGEN 16 MG/DL (7-18); CARBON DIOXIDE LEVEL 24 MEQ/L (21-32); CHLORIDE LEVEL 115 MEQ/L (98-107); CREATININE FOR GFR 0.65 MG/DL (0.55-1.02); GLOMERULAR FILTRATION RATE > 60.0 (>39); GLUCOSE, FASTING 94 MG/DL (83-110); POTASSIUM SERUM 3.7 MEQ/L (3.5-5.1); SODIUM LEVEL 145 MEQ/L (136-145)
[2016-06-13] MEDS ORDERED: MAG SULF 1GM/100ML (MAG RUN) 1 GM in APPROPRIATE DILUENT 1 EA IV ONE (17:00)
--- NOTE | 2016-06-13 18:09 | IPN ---
DATE: 06/13/2016 SUBJECTIVE: The patient is seen and examined in the room today. The patient denies any palpitations. Yesterday afternoon in cardiac telemetry, the patient was noted to have recurrent episodes of tachycardia with a heart rate of around 160s. However, the patient denies feeling unknown feeling at the time, and the patient is resting in bed without any exertion. No overnight events are reported. OBJECTIVE: VITAL SIGNS: Temperature is 96.8, pulse is 84, respirations 18, orthostatic blood pressure measurement showing supine 139/75, sitting 107/60, standing 112/62. Oxygen saturation is 100% on room air. GENERAL: No sign of acute distress. Alert and oriented times three. HEENT: Normocephalic, atraumatic. Extraocular motor grossly intact. CARDIOVASCULAR: Regular rate with the heart rate around 70-100. Positive S1, S2. LUNGS: Decreased breath sounds bilaterally, no wheezes or rhonchi. ABDOMEN: Soft, nontender, nondistended. Bowel sounds present. EXTREMITIES: No edema. No sign of cyanosis. LABORATORY DATA: WBC 6.1, hemoglobin 9.1, hematocrit 28.9, platelet count 40. Sodium 145, potassium 3.7, chloride 115, carbon dioxide 24, BUN 16, creatinine 0.65, GFR greater than 60, fasting glucose 94, calcium 7, magnesium 1.7, iron 18, TIBC 157, ferritin 154. Vitamin B12 is 690. Folic level is 24. ASSESSMENT AND PLAN: 1. Sepsis secondary to urinary tract infection. Unfortunately, the second set of urine culture which was obtained after two days of antibiotic use, came back no growth. The patient has a positive urinalysis, and the patient initially presented with an elevated white count. The patient's symptoms are improving with intravenous (IV) Rocephin. We will continue the treatment. The patient has a frequent urinary tract infection (UTI) with Klebsiella and Escherichia (E.) coli, both sensitive to the Rocephin. 2. The patient has had a very soft blood pressure requiring continuous IV fluid. Today the patient has orthostatic hypotension. We will continue with IV fluid. Due to the hypernatremia and hyperchloremia, the patient's IV fluid was switched to D5W. 3. Urinary tract infection. Has a history of frequent UTI with Klebsiella and E. Coli, and on Rocephin. 4. Splenomegaly. The patient has multiple diagnostic tests pending for her splenomegaly workup. Rheumatoid factor is negative. Antinuclear antibody test (JOHN) is negative. Anti-Avalos is negative, and a double-strand deoxyribonucleic acid (DNA) is negative. Complement level is pending. The patient's cytomegalovirus (CMV), Kimmie-Nolen virus (EBV), hepatitis B remain negative. Case was previously discussed with Dr. Radha June, oncologist. The patient may benefit from outpatient hematology/oncology followup. 5. Anemia with thrombocytopenia. At her baseline, the patient's iron study was performed, and patient has iron-deficiency anemia. Will check white cell occult blood test. The patient denies any acute sign of acute bleeding. The patient continues to decrease her hemoglobin and hematocrit; could be hemodilution. White count, platelet count and also the red blood cell count all decrease with IV fluid. Due to thrombocytopenia, the patient will not be on any type of anticoagulation medications. 6. Hypernatremia and hyperchloremia. Initially, the patient required aggressive IV resuscitation. Normal saline was given, and that caused elevated sodium and chloride level, and the patient's IV fluid is being switched to D5 half saline previously and to D5W since yesterday. Her sodium level started to decrease from 150 to 145 in the last 24 hours, and chloride level decreased from 122 to 115. 7. History of cor pulmonale, stable. 8. Acute kidney injury secondary to sepsis and hypotension. The patient is currently receiving IV fluid. On the day of admission, the patient had a creatinine of 2.45. Currently creatinine is 0.65, which is within normal range. Glomerular filtration rate (GFR) was 20.7 on admission; now it is greater than 60 which is within normal range. 9. Hypotension secondary to sepsis and dehydration. The patient has been getting fluid resuscitation. The patient has orthostatic hypotension today. We will continue the fluid. 10. Hypothyroidism. Continue Synthroid. 11. Mild to moderate atrial fibrillation. The patient is on Eliquis. Started on metoprolol dose. Since initiation of metoprolol, the patient's heart rate decreased from greater than 120, to persistent 80s. 12. Deep venous thrombosis (DVT) prophylaxis. The patient is on Eliquis.
[2016-06-13 18:12] LABS: ANION GAP 7 MEQ/L (8-16); BLOOD UREA NITROGEN 13 MG/DL (7-18); CALCIUM LEVEL 7.3 MG/DL (8.8-10.2); CARBON DIOXIDE LEVEL 22 MEQ/L (21-32); CHLORIDE LEVEL 116 MEQ/L (98-107); CREATININE FOR GFR 0.64 MG/DL (0.55-1.02); GLOMERULAR FILTRATION RATE > 60.0 (>39); GLUCOSE, FASTING 110 MG/DL (83-110); POTASSIUM SERUM 3.5 MEQ/L (3.5-5.1); SODIUM LEVEL 145 MEQ/L (136-145)
[2016-06-13] MEDS: FERROUS SULFATE 325MG TAB PO SCH (20:03)
[2016-06-13] MEDS: cefTRIAXone SOD 1 GM in D5W MINI-BAG PLUS 50 ML IV SCH (21:05)
[2016-06-14] MEDS: D5W 1,000 ML IV SCH (01:07)
[2016-06-14] MEDS: ACETAMINOPHEN TAB 650MG DOSE (2X325MG) PO PRN ×2 (01:09→07:47)
[2016-06-14 01:14] LABS: ANION GAP 8 MEQ/L (8-16); BLOOD UREA NITROGEN 11 MG/DL (7-18); CALCIUM LEVEL 7.1 MG/DL (8.8-10.2); CARBON DIOXIDE LEVEL 22 MEQ/L (21-32); CHLORIDE LEVEL 114 MEQ/L (98-107); CREATININE FOR GFR 0.68 MG/DL (0.55-1.02); GLOMERULAR FILTRATION RATE > 60.0 (>39); GLUCOSE, FASTING 93 MG/DL (83-110); POTASSIUM SERUM 3.8 MEQ/L (3.5-5.1); SODIUM LEVEL 144 MEQ/L (136-145)
[2016-06-14] MEDS: LEVOTHYROXINE 0.112 MG TAB (112 MCG) PO SCH (05:01)
[2016-06-14 05:15] VITALS: BP_SYST 103; BP_SYST 111; BP_SYST 117; BP_DIAS 60; BP_DIAS 64; BP_DIAS 67
[2016-06-14 05:56] LABS: DIFF SLIDE NUMBER 19; MEAN CORPUSCULAR HGB CONC 32.1 g/dl (32.0-36.5); MEAN CORPUSCULAR VOLUME 96.4 fl (80.0-96.0); RED CELL DISTRIBUTION WIDTH 13.6 % (11.5-14.5); WHITE BLOOD COUNT 5.1 K/mm3 (4.0-10.0)
[2016-06-14 05:58] LABS: PLATELET COUNT, AUTOMATED 49 k/mm3 (150-450)
[2016-06-14 06:03] LABS: ANION GAP 8 MEQ/L (8-16); BLOOD UREA NITROGEN 9 MG/DL (7-18); CALCIUM LEVEL 7.3 MG/DL (8.8-10.2); CARBON DIOXIDE LEVEL 21 MEQ/L (21-32); CHLORIDE LEVEL 116 MEQ/L (98-107); CREATININE FOR GFR 0.56 MG/DL (0.55-1.02); GLOMERULAR FILTRATION RATE > 60.0 (>39); GLUCOSE, FASTING 90 MG/DL (83-110); POTASSIUM SERUM 3.6 MEQ/L (3.5-5.1); SODIUM LEVEL 145 MEQ/L (136-145)
[2016-06-14 06:32] LABS: BASOPHILS 1 % (0-4); EOSINOPHILS 1 % (0-5)
[2016-06-14 06:33] LABS: GIANT PLATELETS 1+
[2016-06-14] MEDS: BUDESONIDE 0.5 MG/2 ML INHALATION SUSPENSION INH SCH (07:22)
[2016-06-14] MEDS: TIOTROPIUM INHALER/CAPSULE (SPIRIVA) INH SCH (07:22)
[2016-06-14] MEDS: oxyBUTYnin *DITROPAN XL* 5 MG TABCR PO SCH (07:47)
[2016-06-14] MEDS: MAGNESIUM OXIDE 400 MG TAB (MAG-OX) PO SCH (07:47)
[2016-06-14] MEDS: APIXABAN 5 MG TAB (ELIQUIS) PO SCH (07:47)
[2016-06-14] MEDS: FERROUS SULFATE 325MG TAB PO SCH (07:47)
[2016-06-14] MEDS: SIMVASTATIN 20 MG TAB PO SCH (07:48)
[2016-06-14] MEDS: THIAMINE 100 MG TAB PO SCH (07:48)
[2016-06-14] MEDS: FOLIC ACID 1 MG TAB PO SCH (07:48)
[2016-06-14 07:52] VITALS: BP 127/65
[2016-06-14] MEDS: METOPROLOL TART 12.5 MG PER 1/2 TAB PO SCH (07:52)
--- NOTE | 2016-06-14 07:56 | EDDOCDS ---
Physician Documentation [facility] Name: Yaritza Fernandez Age: 70 yrs Sex: Female : 1945 Arrival Date: 06/09/2016 Time: 17:10 Bed Admit Hold Private MD: Andrade Kimball P. Disposition: 06/09/16 20:18 Hospitalization ordered by Elen Browning for Inpatient Admission. Preliminary diagnosis are Acute kidney failure, Hypotension, Splenomegaly, not elsewhere classified, Atrial fibrillation and flutter. - Bed requested for Admit. - Status is Inpatient Admission. deg - Condition is Stable. - Problem is new. - Symptoms are unchanged. Historical: - Allergies: TETRACYCLINES (Swelling); SULFA (SULFONAMIDES) (Hives); Ambien (Anaphylaxis); - Home Meds: 1. aspirin 81 mg Oral TbEC 1 tab once daily 2. folic acid 1 mg Oral tab once daily 3. levothyroxine 112 mcg Oral cap once daily 4. Mag 64 64 mg oral TbER twice a day 5. oxybutynin chloride 10 mg Oral TG24 once daily 6. Pulmicort Turbuhaler 1 puff Inhl twice a day 7. pro Air 90 mcg inhaler 2 puffs every 4 hours as needed 8. simvastatin 20 mg Oral tab once daily 9. ventolin HFA 90 mcg 2 puffs every 4 hours as needed 10. Spiriva with HandiHaler 18 mcg Inhl CpDv 1 cap once daily 11. verapamil ER 120 mg [place] [address] u weekly every other week 13. vit b1 100 mg daily - PMHx: Cancer, Thyroid; COPD; Hypercholesterolemia; Hypertension; Pneumonia; - PSHx: Appendectomy; - : The pt / caregiver states he / she is not on anticoagulants. Home medication list is obtained from the patient. - Exposure Risk Screening:: None identified. Vital Signs: 06/09 17:15 BP 80 / 51 (auto/); rs3 17:20 BP 80 / 51; Pulse 110; Resp 18; Temp 99.0(TE); Pulse Ox 96% on R/A; Pain 0/10; nb2 17:21 Pulse 134 MON; Pulse Ox 95% ; rs3 17:30 BP 74 / 50 (auto/); rs3 17:30 Pulse 128 MON; Pulse Ox 95% ; rs3 17:45 BP 66 / 41 (auto/); rs3 17:45 Pulse 126 MON; Pulse Ox 96% ; rs3 18:00 BP 72 / 43 (auto/); rs3 18:00 Pulse 130 MON; Pulse Ox 96% ; rs3 18:02 BP 68 / 40 RA Supine (man/reg); rs3 18:15 BP 65 / 50 (auto/); rs3 18:15 Pulse 124 MON; Pulse Ox 98% ; rs3 18:30 BP 83 / 52 (auto/); rs3 18:30 Pulse 122 MON; Pulse Ox 97% ; rs3 19:15 BP 102 / 56 (auto/); kas2 19:16 Pulse 124 MON; Pulse Ox 98% ; kas2 20:40 BP 124 / 61 (auto/); kas2 20:40 Pulse 118 MON; Pulse Ox 98% ; kas2 20:42 BP 102 / 58 (auto/); kas2 20:42 Pulse 120 MON; Pulse Ox 98% ; kas2 20:43 BP 106 / 55 (auto/); kas2 20:43 Pulse 120 MON; Pulse Ox 97% ; kas2 20:57 BP 103 / 51 (auto/); kas2 20:57 Pulse 122 MON; Pulse Ox 98% ; kas2 21:12 BP 107 / 55 (auto/); kas2 21:12 Pulse 114 MON; kas2 21:23 Resp 20; Temp 98.1(O); kas2 MDM: 17:27 -Blood Culture (Adults Only), peripheral from different site, or from device/port/PICC br1 etc. if present ordered. 17:27 Failure Analysis Technician/Pulse Ox/q 15 min VS ordered. br1 17:27 Large bore IV x 2 ordered. br1 17:27 Misc. Nursing Order ordered. br1 17:27 CBC with Diff Ordered. EDMS 17:27 Lactic Acid (Jones tube on ice) Ordered. EDMS 17:27 Liver Profile Ordered. EDMS 17:27 MED Profile Ordered. EDMS 17:27 Urinalysis Ordered. EDMS 17:27 -Blood Culture Ordered. EDMS 17:27 Urine Culture Ordered. EDMS 17:28 Chest, 1 View Ordered. EDMS 17:28 ECG WITH READING ER PHYS+CARDIAG ordered. EDMS 17:28 Troponin Ordered. EDMS 17:28 BNP Ordered. EDMS 17:29 BLOOD CULTURES Ordered. EDMS 17:29 -Blood Culture (Adults Only), peripheral from different site, or from device/port/PICC deg etc. if present complete. 17:44 NS 0.9% 500 ml IV at bolus once ordered. br1 18:29 NS 0.9% 1000 ml IV at bolus once ordered. br1 18:31 CT ABD & PELVIS: No Contrast Ordered. EDMS 19:01 CBC with Diff Reviewed. br1 19:01 Liver Profile Reviewed. br1 19:01 MED Profile Reviewed. br1 19:01 Urinalysis Reviewed. br1 19:01 BNP Reviewed. br1 19:01 Lactic Acid (Jones tube on ice) Reviewed. br1 19:01 Troponin Reviewed. br1 19:22 Financial registration complete. [email or web address] 20:06 BED REQUEST+ADM ordered. EDMS 20:11 [facility] Payment Agreement was scanned into [employer] and attached to record. [email or web address] 21:18 Admission / Observation Status ordered. EDMS 21:19 CARDIAC MARKER PANEL Ordered. EDMS 21:19 PROTHROMBIN TIME PROFILE\E\INR Ordered. EDMS 21:19 CARDIAC MARKER PANEL Ordered. EDMS 21:19 CARDIAC MARKER PANEL Ordered. EDMS 21:20 CBC WITH DIFFERENTIAL Ordered. EDMS 21:20 BASIC METABOLIC PROFILE Ordered. EDMS 21:20 MAGNESIUM LEVEL Ordered. EDMS 21:20 THYROID STIMULATING HORMONE Ordered. EDMS 21:20 FREE T4 Ordered. EDMS 22:49 ECHOCARD,DOPPLER/COLOR FLOW ordered. EDMS 06/10 07:13 NPO FOR TEST/PROCEDURE ordered. EDMS 07:13 HEPATITIS PROFILE Ordered. EDMS 07:13 CYTOMEGALOVIRUS ANTIBODY IgG Ordered. EDMS 07:13 CYTOMEGALOVIRUS ANTIBODY IgM Ordered. EDMS 07:13 ANTINUCLEAR ANTIBODIES Ordered. EDMS 07:13 EXTRACTABLE NUCLEAR ANTIGEN Ordered. EDMS 07:13 ANTI DOUBLE STRAND DNA NI Ordered. EDMS 07:14 PATHOLOGIST REVIEW COMPREHENSI Ordered. EDMS 07:14 ANGIOTENSIN 1 CONVERTING ENZ Ordered. EDMS 07:14 MONO REFLEX EBV VCA IgM Ordered. EDMS 07:14 MONOSCREEN Ordered. EDMS 07:14 RHEUMATOID FACTOR QUANT Ordered. EDMS 07:14 LIVER DOPPLER FLOW Ordered. EDMS 07:19 ABD COMPLETE US Ordered. EDMS 07:39 CT Chest without contrast Ordered. EDMS 10:05 PROTHROMBIN TIME PROFILE\E\INR Ordered. EDMS 10:05 PT & APTT Ordered. EDMS 10:57 EBV VIRAL CAPSID antigen IGM Ordered. EDMS 11:03 MRSA SCREEN Ordered. EDMS 21:11 T-Sheet-- Draft Copy was scanned into [employer] and attached to record. klr Administered Medications: 06/09 18:02 Drug: NS 0.9% 500 ml [sodium chloride 0.9 % intravenous solution] Route: IV; Rate: rs3 bolus; Site: right antecubital; 18:35 Follow up: IV Status: Completed infusion rs3 18:34 Drug: NS 0.9% 1000 ml [sodium chloride 0.9 % intravenous solution] Route: IV; Rate: rs3 bolus; Site: right antecubital; Signatures: Dispatcher [employer] EDMS Latricia Romero, Director Of Instrumental Music Unit deg Alton Pires MD MD br1 Danita Rg RN RN rs3 Genesis Sellers, Reg Reg [email or web address] Gail Darden The chart was reviewed and I authenticate all verbal orders and agree with the evaluation and treatment provided.Corrections: (The following items were deleted from the chart) 06/10 07:13 06/09 21:19 NO ADDED SALT DIET ordered. EDMS EDMS Attachments: 20:11 [facility] Payment Agreement [email or web address] 06/10 21:11 T-Sheet-- Draft Copy klr Chart Complete MTDD
--- NOTE | 2016-06-14 07:57 | EDDOCDS ---
Physician Documentation [facility] Name: Yaritza Fernandez Age: 70 yrs Sex: Female : 1945 Arrival Date: 06/09/2016 Time: 17:10 Bed Admit Hold Private MD: Andrade Kimball P. Disposition: 06/09/16 20:18 Hospitalization ordered by Elen Browning for Inpatient Admission. Preliminary diagnosis are Acute kidney failure, Hypotension, Splenomegaly, not elsewhere classified, Atrial fibrillation and flutter. - Bed requested for Admit. - Status is Inpatient Admission. deg - Condition is Stable. - Problem is new. - Symptoms are unchanged. Historical: - Allergies: TETRACYCLINES (Swelling); SULFA (SULFONAMIDES) (Hives); Ambien (Anaphylaxis); - Home Meds: 1. aspirin 81 mg Oral TbEC 1 tab once daily 2. folic acid 1 mg Oral tab once daily 3. levothyroxine 112 mcg Oral cap once daily 4. Mag 64 64 mg oral TbER twice a day 5. oxybutynin chloride 10 mg Oral TG24 once daily 6. Pulmicort Turbuhaler 1 puff Inhl twice a day 7. pro Air 90 mcg inhaler 2 puffs every 4 hours as needed 8. simvastatin 20 mg Oral tab once daily 9. ventolin HFA 90 mcg 2 puffs every 4 hours as needed 10. Spiriva with HandiHaler 18 mcg Inhl CpDv 1 cap once daily 11. verapamil ER 120 mg [place] [address] u weekly every other week 13. vit b1 100 mg daily - PMHx: Cancer, Thyroid; COPD; Hypercholesterolemia; Hypertension; Pneumonia; - PSHx: Appendectomy; - : The pt / caregiver states he / she is not on anticoagulants. Home medication list is obtained from the patient. - Exposure Risk Screening:: None identified. Vital Signs: 06/09 17:15 BP 80 / 51 (auto/); rs3 17:20 BP 80 / 51; Pulse 110; Resp 18; Temp 99.0(TE); Pulse Ox 96% on R/A; Pain 0/10; nb2 17:21 Pulse 134 MON; Pulse Ox 95% ; rs3 17:30 BP 74 / 50 (auto/); rs3 17:30 Pulse 128 MON; Pulse Ox 95% ; rs3 17:45 BP 66 / 41 (auto/); rs3 17:45 Pulse 126 MON; Pulse Ox 96% ; rs3 18:00 BP 72 / 43 (auto/); rs3 18:00 Pulse 130 MON; Pulse Ox 96% ; rs3 18:02 BP 68 / 40 RA Supine (man/reg); rs3 18:15 BP 65 / 50 (auto/); rs3 18:15 Pulse 124 MON; Pulse Ox 98% ; rs3 18:30 BP 83 / 52 (auto/); rs3 18:30 Pulse 122 MON; Pulse Ox 97% ; rs3 19:15 BP 102 / 56 (auto/); kas2 19:16 Pulse 124 MON; Pulse Ox 98% ; kas2 20:40 BP 124 / 61 (auto/); kas2 20:40 Pulse 118 MON; Pulse Ox 98% ; kas2 20:42 BP 102 / 58 (auto/); kas2 20:42 Pulse 120 MON; Pulse Ox 98% ; kas2 20:43 BP 106 / 55 (auto/); kas2 20:43 Pulse 120 MON; Pulse Ox 97% ; kas2 20:57 BP 103 / 51 (auto/); kas2 20:57 Pulse 122 MON; Pulse Ox 98% ; kas2 21:12 BP 107 / 55 (auto/); kas2 21:12 Pulse 114 MON; kas2 21:23 Resp 20; Temp 98.1(O); kas2 MDM: 17:27 -Blood Culture (Adults Only), peripheral from different site, or from device/port/PICC br1 etc. if present ordered. 17:27 Card Mounter/Pulse Ox/q 15 min VS ordered. br1 17:27 Large bore IV x 2 ordered. br1 17:27 Misc. Nursing Order ordered. br1 17:27 CBC with Diff Ordered. EDMS 17:27 Lactic Acid (Jones tube on ice) Ordered. EDMS 17:27 Liver Profile Ordered. EDMS 17:27 MED Profile Ordered. EDMS 17:27 Urinalysis Ordered. EDMS 17:27 -Blood Culture Ordered. EDMS 17:27 Urine Culture Ordered. EDMS 17:28 Chest, 1 View Ordered. EDMS 17:28 ECG WITH READING ER PHYS+CARDIAG ordered. EDMS 17:28 Troponin Ordered. EDMS 17:28 BNP Ordered. EDMS 17:29 BLOOD CULTURES Ordered. EDMS 17:29 -Blood Culture (Adults Only), peripheral from different site, or from device/port/PICC deg etc. if present complete. 17:44 NS 0.9% 500 ml IV at bolus once ordered. br1 18:29 NS 0.9% 1000 ml IV at bolus once ordered. br1 18:31 CT ABD & PELVIS: No Contrast Ordered. EDMS 19:01 CBC with Diff Reviewed. br1 19:01 Liver Profile Reviewed. br1 19:01 MED Profile Reviewed. br1 19:01 Urinalysis Reviewed. br1 19:01 BNP Reviewed. br1 19:01 Lactic Acid (Jones tube on ice) Reviewed. br1 19:01 Troponin Reviewed. br1 19:22 Financial registration complete. [email or web address] 20:06 BED REQUEST+ADM ordered. EDMS 20:11 [facility] Payment Agreement was scanned into [employer] and attached to record. [email or web address] 21:18 Admission / Observation Status ordered. EDMS 21:19 CARDIAC MARKER PANEL Ordered. EDMS 21:19 PROTHROMBIN TIME PROFILE\E\INR Ordered. EDMS 21:19 CARDIAC MARKER PANEL Ordered. EDMS 21:19 CARDIAC MARKER PANEL Ordered. EDMS 21:20 CBC WITH DIFFERENTIAL Ordered. EDMS 21:20 BASIC METABOLIC PROFILE Ordered. EDMS 21:20 MAGNESIUM LEVEL Ordered. EDMS 21:20 THYROID STIMULATING HORMONE Ordered. EDMS 21:20 FREE T4 Ordered. EDMS 22:49 ECHOCARD,DOPPLER/COLOR FLOW ordered. EDMS 06/10 07:13 NPO FOR TEST/PROCEDURE ordered. EDMS 07:13 HEPATITIS PROFILE Ordered. EDMS 07:13 CYTOMEGALOVIRUS ANTIBODY IgG Ordered. EDMS 07:13 CYTOMEGALOVIRUS ANTIBODY IgM Ordered. EDMS 07:13 ANTINUCLEAR ANTIBODIES Ordered. EDMS 07:13 EXTRACTABLE NUCLEAR ANTIGEN Ordered. EDMS 07:13 ANTI DOUBLE STRAND DNA NI Ordered. EDMS 07:14 PATHOLOGIST REVIEW COMPREHENSI Ordered. EDMS 07:14 ANGIOTENSIN 1 CONVERTING ENZ Ordered. EDMS 07:14 MONO REFLEX EBV VCA IgM Ordered. EDMS 07:14 MONOSCREEN Ordered. EDMS 07:14 RHEUMATOID FACTOR QUANT Ordered. EDMS 07:14 LIVER DOPPLER FLOW Ordered. EDMS 07:19 ABD COMPLETE US Ordered. EDMS 07:39 CT Chest without contrast Ordered. EDMS 10:05 PROTHROMBIN TIME PROFILE\E\INR Ordered. EDMS 10:05 PT & APTT Ordered. EDMS 10:57 EBV VIRAL CAPSID antigen IGM Ordered. EDMS 11:03 MRSA SCREEN Ordered. EDMS 21:11 T-Sheet-- Draft Copy was scanned into [employer] and attached to record. klr Administered Medications: 06/09 18:02 Drug: NS 0.9% 500 ml [sodium chloride 0.9 % intravenous solution] Route: IV; Rate: rs3 bolus; Site: right antecubital; 18:35 Follow up: IV Status: Completed infusion rs3 18:34 Drug: NS 0.9% 1000 ml [sodium chloride 0.9 % intravenous solution] Route: IV; Rate: rs3 bolus; Site: right antecubital; Signatures: Dispatcher [employer] EDMS Latricia Romero, Buckle Attacher Unit deg Alton Pires MD MD br1 Danita Rg RN RN rs3 Genesis Sellers, Reg Reg [email or web address] Gail Darden The chart was reviewed and I authenticate all verbal orders and agree with the evaluation and treatment provided.Corrections: (The following items were deleted from the chart) 06/10 07:13 06/09 21:19 NO ADDED SALT DIET ordered. EDMS EDMS Attachments: 20:11 [facility] Payment Agreement [email or web address] 06/10 21:11 T-Sheet-- Draft Copy klr Chart Complete MTDD
--- NOTE | 2016-06-14 07:57 | EDDOCDS ---
Physician Documentation [facility] Name: Yaritza Fernandez Age: 70 yrs Sex: Female : 1945 Arrival Date: 06/09/2016 Time: 17:10 Bed Admit Hold Private MD: Andrade Kimball P. Disposition: 06/09/16 20:18 Hospitalization ordered by Elen Browning for Inpatient Admission. Preliminary diagnosis are Acute kidney failure, Hypotension, Splenomegaly, not elsewhere classified, Atrial fibrillation and flutter. - Bed requested for Admit. - Status is Inpatient Admission. deg - Condition is Stable. - Problem is new. - Symptoms are unchanged. Historical: - Allergies: TETRACYCLINES (Swelling); SULFA (SULFONAMIDES) (Hives); Ambien (Anaphylaxis); - Home Meds: 1. aspirin 81 mg Oral TbEC 1 tab once daily 2. folic acid 1 mg Oral tab once daily 3. levothyroxine 112 mcg Oral cap once daily 4. Mag 64 64 mg oral TbER twice a day 5. oxybutynin chloride 10 mg Oral TG24 once daily 6. Pulmicort Turbuhaler 1 puff Inhl twice a day 7. pro Air 90 mcg inhaler 2 puffs every 4 hours as needed 8. simvastatin 20 mg Oral tab once daily 9. ventolin HFA 90 mcg 2 puffs every 4 hours as needed 10. Spiriva with HandiHaler 18 mcg Inhl CpDv 1 cap once daily 11. verapamil ER 120 mg [place] [address] u weekly every other week 13. vit b1 100 mg daily - PMHx: Cancer, Thyroid; COPD; Hypercholesterolemia; Hypertension; Pneumonia; - PSHx: Appendectomy; - : The pt / caregiver states he / she is not on anticoagulants. Home medication list is obtained from the patient. - Exposure Risk Screening:: None identified. Vital Signs: 06/09 17:15 BP 80 / 51 (auto/); rs3 17:20 BP 80 / 51; Pulse 110; Resp 18; Temp 99.0(TE); Pulse Ox 96% on R/A; Pain 0/10; nb2 17:21 Pulse 134 MON; Pulse Ox 95% ; rs3 17:30 BP 74 / 50 (auto/); rs3 17:30 Pulse 128 MON; Pulse Ox 95% ; rs3 17:45 BP 66 / 41 (auto/); rs3 17:45 Pulse 126 MON; Pulse Ox 96% ; rs3 18:00 BP 72 / 43 (auto/); rs3 18:00 Pulse 130 MON; Pulse Ox 96% ; rs3 18:02 BP 68 / 40 RA Supine (man/reg); rs3 18:15 BP 65 / 50 (auto/); rs3 18:15 Pulse 124 MON; Pulse Ox 98% ; rs3 18:30 BP 83 / 52 (auto/); rs3 18:30 Pulse 122 MON; Pulse Ox 97% ; rs3 19:15 BP 102 / 56 (auto/); kas2 19:16 Pulse 124 MON; Pulse Ox 98% ; kas2 20:40 BP 124 / 61 (auto/); kas2 20:40 Pulse 118 MON; Pulse Ox 98% ; kas2 20:42 BP 102 / 58 (auto/); kas2 20:42 Pulse 120 MON; Pulse Ox 98% ; kas2 20:43 BP 106 / 55 (auto/); kas2 20:43 Pulse 120 MON; Pulse Ox 97% ; kas2 20:57 BP 103 / 51 (auto/); kas2 20:57 Pulse 122 MON; Pulse Ox 98% ; kas2 21:12 BP 107 / 55 (auto/); kas2 21:12 Pulse 114 MON; kas2 21:23 Resp 20; Temp 98.1(O); kas2 MDM: 17:27 -Blood Culture (Adults Only), peripheral from different site, or from device/port/PICC br1 etc. if present ordered. 17:27 Animal Care Assistant/Pulse Ox/q 15 min VS ordered. br1 17:27 Large bore IV x 2 ordered. br1 17:27 Misc. Nursing Order ordered. br1 17:27 CBC with Diff Ordered. EDMS 17:27 Lactic Acid (Jones tube on ice) Ordered. EDMS 17:27 Liver Profile Ordered. EDMS 17:27 MED Profile Ordered. EDMS 17:27 Urinalysis Ordered. EDMS 17:27 -Blood Culture Ordered. EDMS 17:27 Urine Culture Ordered. EDMS 17:28 Chest, 1 View Ordered. EDMS 17:28 ECG WITH READING ER PHYS+CARDIAG ordered. EDMS 17:28 Troponin Ordered. EDMS 17:28 BNP Ordered. EDMS 17:29 BLOOD CULTURES Ordered. EDMS 17:29 -Blood Culture (Adults Only), peripheral from different site, or from device/port/PICC deg etc. if present complete. 17:44 NS 0.9% 500 ml IV at bolus once ordered. br1 18:29 NS 0.9% 1000 ml IV at bolus once ordered. br1 18:31 CT ABD & PELVIS: No Contrast Ordered. EDMS 19:01 CBC with Diff Reviewed. br1 19:01 Liver Profile Reviewed. br1 19:01 MED Profile Reviewed. br1 19:01 Urinalysis Reviewed. br1 19:01 BNP Reviewed. br1 19:01 Lactic Acid (Jones tube on ice) Reviewed. br1 19:01 Troponin Reviewed. br1 19:22 Financial registration complete. [email or web address] 20:06 BED REQUEST+ADM ordered. EDMS 20:11 [facility] Payment Agreement was scanned into [employer] and attached to record. [email or web address] 21:18 Admission / Observation Status ordered. EDMS 21:19 CARDIAC MARKER PANEL Ordered. EDMS 21:19 PROTHROMBIN TIME PROFILE\E\INR Ordered. EDMS 21:19 CARDIAC MARKER PANEL Ordered. EDMS 21:19 CARDIAC MARKER PANEL Ordered. EDMS 21:20 CBC WITH DIFFERENTIAL Ordered. EDMS 21:20 BASIC METABOLIC PROFILE Ordered. EDMS 21:20 MAGNESIUM LEVEL Ordered. EDMS 21:20 THYROID STIMULATING HORMONE Ordered. EDMS 21:20 FREE T4 Ordered. EDMS 22:49 ECHOCARD,DOPPLER/COLOR FLOW ordered. EDMS 06/10 07:13 NPO FOR TEST/PROCEDURE ordered. EDMS 07:13 HEPATITIS PROFILE Ordered. EDMS 07:13 CYTOMEGALOVIRUS ANTIBODY IgG Ordered. EDMS 07:13 CYTOMEGALOVIRUS ANTIBODY IgM Ordered. EDMS 07:13 ANTINUCLEAR ANTIBODIES Ordered. EDMS 07:13 EXTRACTABLE NUCLEAR ANTIGEN Ordered. EDMS 07:13 ANTI DOUBLE STRAND DNA NI Ordered. EDMS 07:14 PATHOLOGIST REVIEW COMPREHENSI Ordered. EDMS 07:14 ANGIOTENSIN 1 CONVERTING ENZ Ordered. EDMS 07:14 MONO REFLEX EBV VCA IgM Ordered. EDMS 07:14 MONOSCREEN Ordered. EDMS 07:14 RHEUMATOID FACTOR QUANT Ordered. EDMS 07:14 LIVER DOPPLER FLOW Ordered. EDMS 07:19 ABD COMPLETE US Ordered. EDMS 07:39 CT Chest without contrast Ordered. EDMS 10:05 PROTHROMBIN TIME PROFILE\E\INR Ordered. EDMS 10:05 PT & APTT Ordered. EDMS 10:57 EBV VIRAL CAPSID antigen IGM Ordered. EDMS 11:03 MRSA SCREEN Ordered. EDMS 21:11 T-Sheet-- Draft Copy was scanned into [employer] and attached to record. klr Administered Medications: 06/09 18:02 Drug: NS 0.9% 500 ml [sodium chloride 0.9 % intravenous solution] Route: IV; Rate: rs3 bolus; Site: right antecubital; 18:35 Follow up: IV Status: Completed infusion rs3 18:34 Drug: NS 0.9% 1000 ml [sodium chloride 0.9 % intravenous solution] Route: IV; Rate: rs3 bolus; Site: right antecubital; Signatures: Dispatcher [employer] EDMS Latricia Romero, Web Content & Social Media Manager Unit deg Alton Pires MD MD br1 Danita Rg RN RN rs3 Genesis Sellers, Reg Reg [email or web address] Gail Darden The chart was reviewed and I authenticate all verbal orders and agree with the evaluation and treatment provided.Corrections: (The following items were deleted from the chart) 06/10 07:13 06/09 21:19 NO ADDED SALT DIET ordered. EDMS EDMS Attachments: 20:11 [facility] Payment Agreement [email or web address] 06/10 21:11 T-Sheet-- Draft Copy klr Chart Complete MTDD
--- NOTE | 2016-06-14 07:57 | EDDOCDS ---
Nurse's Notes [facility] Name: Yaritza Fernandez Age: 70 yrs Sex: Female : 1945 Arrival Date: 06/09/2016 Time: 17:10 Bed Admit Hold Private MD: Andrade Kimball P. Diagnosis: Acute kidney failure;Hypotension;Splenomegaly, not elsewhere classified;Atrial fibrillation and flutter Presentation: 06/09 17:15 Presenting complaint: EMS states: SOB since . Was seen by Primary for UTI. rs3 Presenting complaint: Patient states: generalized weakness, wobbly with walking, low blood pressure 80/51 since . Adult Sepsis Screening: The patient does not have new or worsening altered mentation. Patient's respiratory rate is less than 22. Systolic blood pressure is greater than 100. Patient has a qSOFA score of 0- Negative Sepsis Screen. Suicide/Homicide risk assessment- the patient denies having any suicidal and/or homicidal ideations and does not present with any other emotional, behavioral or mental health complaints. 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 Transition of care: patient was not received from another setting of care. 17:15 Acuity: DANAY Level 3 rs3 17:15 Method Of Arrival: Ambulance rs3 Triage Assessment: 17:24 General: Appears in no apparent distress. Pain: Denies pain. Respiratory: Onset: The rs3 symptoms/episode began/occurred gradually. Historical: - Allergies: TETRACYCLINES (Swelling); SULFA (SULFONAMIDES) (Hives); Ambien (Anaphylaxis); - Home Meds: 1. aspirin 81 mg Oral TbEC 1 tab once daily 2. folic acid 1 mg Oral tab once daily 3. levothyroxine 112 mcg Oral cap once daily 4. Mag 64 64 mg oral TbER twice a day 5. oxybutynin chloride 10 mg Oral TG24 once daily 6. Pulmicort Turbuhaler 1 puff Inhl twice a day 7. pro Air 90 mcg inhaler 2 puffs every 4 hours as needed 8. simvastatin 20 mg Oral tab once daily 9. ventolin HFA 90 mcg 2 puffs every 4 hours as needed 10. Spiriva with HandiHaler 18 mcg Inhl CpDv 1 cap once daily 11. verapamil ER 120 mg [place] [id number] u weekly every other week 13. vit b1 100 mg daily - PMHx: Cancer, Thyroid; COPD; Hypercholesterolemia; Hypertension; Pneumonia; - PSHx: Appendectomy; - : The pt / caregiver states he / she is not on anticoagulants. Home medication list is obtained from the patient. - Exposure Risk Screening:: None identified. Screenin:48 Screening information is obtained from the patient. Fall risk: At risk due to gait rs3 disturbance. Assistance ADL's: requires no assistance with activities of daily living. Abuse/DV Screen: The patient / caregiver reports he/she is: not in a situation that causes fear, pain or injury. Nutritional screening: No deficits noted. Advance Directives: Currently, there is no health care proxy. home support is adequate. Assessment: 17:48 General: Appears in no apparent distress, Behavior is cooperative. Pain: Denies pain. rs3 Neurological: Level of Consciousness is awake, alert, Reports weakness. Cardiovascular: Capillary refill < 3 seconds Heart tones S1 S2 present. Cardiovascular: Rhythm is irregular Chest pain is denied. Respiratory: Airway is patent Respiratory effort is even, unlabored, Respiratory pattern is regular, symmetrical, Breath sounds are clear bilaterally. Derm: Skin is pink, warm & dry. 18:36 General: Appears in no apparent distress, family at bedside. denies of pain/distress. rs3 1st IVF NS bolus 500 cc complete. tolerated well. ordered 2nd bolus started. blood pressure systolic 70/40 . denies of dizziness at rest. . 19:10 General: Verbal report given by Noris Vale RN. Assumed care of patient at this time.. kas2 19:35 General: Appears in no apparent distress, comfortable, well nourished, well groomed, kas2 Behavior is appropriate for age, cooperative. Pain: Denies pain. Neurological: Level of Consciousness is awake, alert, Oriented to person, place, time. Cardiovascular: Capillary refill < 3 seconds Heart tones S1 S2 present Rhythm is irregular Chest pain is denied. Respiratory: Airway is patent Respiratory effort is even, unlabored, Respiratory pattern is regular, symmetrical, Breath sounds are clear bilaterally. Derm: Skin is intact, Skin is dry, Skin is pink, warm & dry. Skin temperature is warm. 20:37 General: Patient resting in bed with family at bedside. Appears comfortable. Denies kas2 pain or discomfort at this time. Airway patent and respiratory effort even and unlabored. Call maddox within reach. Will continue to monitor.. 21:22 General: Appears in no apparent distress, comfortable, Behavior is appropriate for age, kas2 cooperative. Pain: Denies pain. Neurological: Level of Consciousness is awake, alert, Oriented to person, place, time. Cardiovascular: Rhythm is atrial fibrillation. Respiratory: Airway is patent Respiratory effort is even, unlabored, Respiratory pattern is regular, symmetrical. Derm: Skin is intact, Skin is dry, Skin is pink, warm & dry. Skin temperature is warm. 21:35 General: Verbal report given to Tahira Hager RN. Patient moved to Room 20.. kas2 Vital Signs: 17:15 BP 80 / 51 (auto/); rs3 17:20 BP 80 / 51; Pulse 110; Resp 18; Temp 99.0(TE); Pulse Ox 96% on R/A; Pain 0/10; nb2 17:21 Pulse 134 MON; Pulse Ox 95% ; rs3 17:30 BP 74 / 50 (auto/); rs3 17:30 Pulse 128 MON; Pulse Ox 95% ; rs3 17:45 BP 66 / 41 (auto/); rs3 17:45 Pulse 126 MON; Pulse Ox 96% ; rs3 18:00 BP 72 / 43 (auto/); rs3 18:00 Pulse 130 MON; Pulse Ox 96% ; rs3 18:02 BP 68 / 40 RA Supine (man/reg); rs3 18:15 BP 65 / 50 (auto/); rs3 18:15 Pulse 124 MON; Pulse Ox 98% ; rs3 18:30 BP 83 / 52 (auto/); rs3 18:30 Pulse 122 MON; Pulse Ox 97% ; rs3 19:15 BP 102 / 56 (auto/); kas2 19:16 Pulse 124 MON; Pulse Ox 98% ; kas2 20:40 BP 124 / 61 (auto/); kas2 20:40 Pulse 118 MON; Pulse Ox 98% ; kas2 20:42 BP 102 / 58 (auto/); kas2 20:42 Pulse 120 MON; Pulse Ox 98% ; kas2 20:43 BP 106 / 55 (auto/); kas2 20:43 Pulse 120 MON; Pulse Ox 97% ; kas2 20:57 BP 103 / 51 (auto/); kas2 20:57 Pulse 122 MON; Pulse Ox 98% ; kas2 21:12 BP 107 / 55 (auto/); kas2 21:12 Pulse 114 MON; kas2 21:23 Resp 20; Temp 98.1(O); kas2 Vitals: 17:20 Log In time N/A- police car arrival. 2 ED Course: 17:11 Patient visited by Bob Bartlett PCA. jrd 17:11 Andrade Kimball is Private Physician. jrd 17:11 Patient visited by Bob Bartlett PCA. jrd 17:11 Danita Rg RN is Primary Nurse. jrd 17:11 Patient moved to Waiting jrd 17:11 Patient moved to 6 jrd 17:18 Alton Pires MD is Attending Physician. br1 17:18 Triage Initiated rs3 17:20 Placed in gown. Bed in low position. Call light in reach. Side rails up X2. Cardiac nb2 monitor on. Pulse ox on. NIBP on. 17:25 Patient visited by Alton Pires MD. br1 17:49 Urine Culture Sent. rs3 17:49 Lactic Acid (Jones tube on ice) Sent. rs3 17:49 Urinalysis Sent. rs3 17:54 EKG done. (by ED staff). Reviewed by Alton Pires MD. nb2 17:55 Patient visited by Malissa Hirsch. nb2 18:26 Patient visited by Danita Rg RN. rs3 19:09 Tahira Avalos RN is Primary Nurse. kas2 19:11 Patient visited by Tahira Avalos RN. kas2 19:37 Patient visited by Tahira Avalos RN. kas2 20:11 [facility] Payment Agreement was scanned into [employer] and attached to record. ks16 20:18 Elen Browning is Hospitalizing Provider. br1 20:33 CT ABD & PELVIS: No Contrast Returned. EDMS 20:39 Patient visited by Tahira Avalos RN. kas2 21:23 Patient visited by Tahira Avalos RN. kas2 21:28 Patient moved to 20 jlm 21:59 Patient moved to Admit Hold [facility] 06/10 02:55 Primary Nurse role handed off by Danita Rg RN [facility] 21:11 T-Sheet-- Draft Copy was scanned into [employer] and attached to record. klr Administered Medications: 06/09 18:02 Drug: NS 0.9% 500 ml [sodium chloride 0.9 % intravenous solution] Route: IV; Rate: rs3 bolus; Site: right antecubital; 18:35 Follow up: IV Status: Completed infusion rs3 18:34 Drug: NS 0.9% 1000 ml [sodium chloride 0.9 % intravenous solution] Route: IV; Rate: rs3 bolus; Site: right antecubital; Order Results: Lab Order: CBC with Diff; SPEC'M 06/09/16 17:32 Test: WHITE BLOOD COUNT; Value: 12.1; Range: 4.0-10.0; Abnormal: Above high normal; Units: K/mm3; Status: F Test: RED BLOOD COUNT; Value: 4.40; Range: 4.00-5.40; Units: M/mm3; Status: F Test: HEMOGLOBIN; Value: 13.4; Range: 12.0-16.0; Units: g/dl; Status: F Test: HEMATOCRIT; Value: 41.2; Range: 36.0-47.0; Units: %; Status: F Test: MEAN CORPUSCULAR VOLUME; Value: 93.8; Range: 80.0-96.0; Units: fl; Status: F Test: MEAN CORPUSCULAR HEMOGLOBIN; Value: 30.4; Range: 27.0-33.0; Units: pg; Status: F Test: MEAN CORPUSCULAR HGB CONC; Value: 32.4; Range: 32.0-36.5; Units: g/dl; Status: F Test: RED CELL DISTRIBUTION WIDTH; Value: 13.4; Range: 11.5-14.5; Units: %; Status: F Test: PLATELET COUNT, AUTOMATED; Value: 82; Range: 150-450; Abnormal: Below low normal; Units: k/mm3; Status: F Test: NEUTROPHILS %; Value: 78.2; Range: 36.0-66.0; Abnormal: Above high normal; Units: %; Status: F Test: LYMPH %; Value: 10.7; Range: 24.0-44.0; Abnormal: Below low normal; Units: %; Status: F Test: MONO %; Value: 6.0; Range: 0.0-5.0; Abnormal: Above high normal; Units: %; Status: F Test: EOS %; Value: 0.1; Range: 0.0-3.0; Units: %; Status: F Test: BASO %; Value: 0.1; Range: 0.0-1.0; Units: %; Status: F Test: LARGE UNSTAINED CELL %; Value: 4.8; Range: 0.0-4.0; Abnormal: Above high normal; Units: %; Status: F Test: NEUTROPHILS #; Value: 9.5; Range: 1.8-7.7; Abnormal: Above high normal; Units: K/mm3; Status: F Test: LYMPH #; Value: 1.3; Range: 1.5-4.5; Abnormal: Below low normal; Units: K/mm3; Status: F Test: MONO #; Value: 0.7; Range: 0.0-0.8; Units: K/mm3; Status: F Test: EOS #; Value: 0.0; Range: 0.0-0.50; Units: K/mm3; Status: F Test: BASO #; Value: 0.0; Range: 0.0-0.2; Units: K/mm3; Status: F Test: LARGE UNSTAINED CELL #; Value: 0.6; Range: 0.0-0.4; Abnormal: Above high normal; Units: K/mm3; Status: F Lab Order: Lactic Acid (Jones tube on ice); SPEC'M 06/09/16 17:33 Test: LACTIC ACID LEVEL, LACTATE; Value: 1.2; Range: 0.4-2.0; Units: MMOL/L; Status: F Lab Order: Liver Profile; SPEC'M 06/09/16 17:32 Test: AST/SGOT; Value: 3; Range: 15-37; Abnormal: Below low normal; Units: U/L; Status: F Test: ALT/SGPT; Value: 9; Range: 12-78; Abnormal: Below low normal; Units: U/L; Status: F Test: ALKALINE PHOSPHATASE; Value: 52; Range: 45-117; Units: U/L; Status: F Test: BILIRUBIN,TOTAL; Value: 0.3; Range: 0.2-1.0; Units: MG/DL; Status: F Test: BILIRUBIN,DIRECT; Value: < 0.1; Range: 0.0-0.2; Units: MG/DL; Status: F Test: TOTAL PROTEIN; Value: 5.8; Range: 6.4-8.2; Abnormal: Below low normal; Units: GM/DL; Status: F Test: ALBUMIN; Value: 3.0; Range: 3.2-5.2; Abnormal: Below low normal; Units: GM/DL; Status: F Test: ALBUMIN/GLOBULIN RATIO; Value: 1.07; Range: 1.00-1.93; Status: F Lab Order: MED Profile; SPEC'M 06/09/16 17:32 Test: GLUCOSE, FASTING; Value: 140; Range: 83-110; Abnormal: Above high normal; Units: MG/DL; Status: F Test: BLOOD UREA NITROGEN; Value: 112; Range: 7-18; Abnormal: Above high normal; Units: MG/DL; Status: F Test: CREATININE FOR GFR; Value: 2.45; Range: 0.55-1.02; Abnormal: Above high normal; Units: MG/DL; Status: F Test: GLOMERULAR FILTRATION RATE; Value: 20.7; Range: >39; Abnormal: Below low normal; Status: F Test: SODIUM LEVEL; Value: 143; Range: 136-145; Units: MEQ/L; Status: F Test: POTASSIUM SERUM; Value: 3.6; Range: 3.5-5.1; Units: MEQ/L; Status: F Test: CHLORIDE LEVEL; Value: 111; Range: 98-107; Abnormal: Above high normal; Units: MEQ/L; Status: F Test: CARBON DIOXIDE LEVEL; Value: 18; Range: 21-32; Abnormal: Below low normal; Units: MEQ/L; Status: F Test: ANION GAP; Value: 14; Range: 8-16; Units: MEQ/L; Status: F Test: CALCIUM LEVEL; Value: 10.2; Range: 8.8-10.2; Units: MG/DL; Status: F Test Note: ; Units are mL/min/1.73 m2 Chronic Kidney Disease Staging per NKF: Stage I & II GFR >=60 Normal to Mildly Decreased Stage III GFR 30-59 Moderately Decreased Stage IV GFR 15-29 Severely Decreased Stage V GFR <15 Very Little GFR Left ESRD GFR <15 on SENIOR CAREGIVER Lab Order: Urinalysis; SPEC'M 06/09/16 17:32 Test: APPEARANCE, URINE; Value: CLOUDY; Range: CLEAR; Abnormal: Above high normal; Status: F Test: COLOR, URINE; Value: YELLOW; Range: YELLOW; Status: F Test: PH,URINE; Value: 5.0; Range: 5.0-9.0; Units: UNITS; Status: F Test: SPECIFIC GRAVITY URINE AUTO; Value: 1.013; Range: 1.002-1.035; Status: F Test: PROTEIN, URINE AUTO; Value: 2+; Range: NEGATIVE; Abnormal: Above high normal; Units: mg/dL; Status: F Test: GLUCOSE, URINE (UA) AUTO; Value: 1+; Range: NEGATIVE; Abnormal: Above high normal; Units: mg/dL; Status: F Test: KETONE, URINE AUTO; Value: NEGATIVE; Range: NEGATIVE; Units: mg/dL; Status: F Test: UROBILINOGEN, URINE AUTO; Value: 0.2; Range: 0.0-2.0; Units: mg/dL; Status: F Test: BILIRUBIN, URINE AUTO; Value: NEGATIVE; Range: NEGATIVE; Status: F Test: NITRITE, URINE AUTO; Value: NEGATIVE; Range: NEGATIVE; Status: F Test: LEUKOCYTE ESTERASE, URINE AUTO; Value: 1+; Range: NEGATIVE; Abnormal: Above high normal; Status: F Test: BLOOD, URINE BLOOD; Value: 3+; Range: NEGATIVE; Abnormal: Above high normal; Status: F Test: WBC, URINE AUTO; Value: 39; Range: 0-3; Abnormal: Above high normal; Units: /HPF; Status: F Test: RBC, URINE AUTO; Value: TNTC; Range: 0-3; Abnormal: Above high normal; Units: /HPF; Status: F Test: BACTERIA, URINE AUTO; Value: 1+; Range: NEGATIVE; Abnormal: Above high normal; Status: F Test: SQUAMOUS EPITHELIAL CELL UR AU; Value: 50; Range: 0-6; Units: /HPF; Status: F Test: HYALINE CAST, URINE AUTO; Value: 0; Range: 0-1; Units: /LPF; Status: F Lab Order: Troponin; SPEC'M 06/09/16 17:32 Test: TROPONIN I; Value: < 0.02; Range: < 0.10; Units: NG/ML; Status: F Test Note: ; Troponin I Reference Interval for Siemens [place] LOCI: 99th Percentile= 0.00-0.045 ng/ml Risk Stratification: <= 0.10 ng/ml Decreased Risk for Adverse Clinical Events. 0.10-1.50 ng/ml Increased Risk for Adverse Clinical Events. Evaluation of additional criterion and/or repeat testing in 2-6 hours is suggested to rule out myocardial damage. >= 1.50 ng/ml Indicative of Myocardial Injury. Lab Order: BNP; [facility] 06/09/16 17:32 Test: BRAIN NATRIURETIC PEPTIDE; Value: 293; Range: <100; Abnormal: Above high normal; Units: PG/ML; Status: F Lab Order: CARDIAC MARKER PANEL; [facility] 06/09/16 22:15 Test: CPK CREATINE PHOSPHOKINASE; Value: 10; Range: 26-192; Abnormal: Below low normal; Units: U/L; Status: F Test: CK-MB VALUE MASS; Value: 1.0; Range: 0.0-3.6; Units: NG/ML; Status: F Test: MB/CK RELATIVE INDEX; Value: 10.00; Range: < OR =4; Abnormal: Above high normal; Status: F Test: TROPONIN I; Value: < 0.02; Range: < 0.10; Units: NG/ML; Status: F Test Note: ; DIAGNOSIS CRITERIA MMB ng/ml Relative Index (RI) NON-AMI < or = 5 N/A JONES ZONE > 5 < or = 4 AMI > 5 > 4 Lab Order: PROTHROMBIN TIME PROFILE\E\INR; [facility] 06/09/16 17:32 Test: PROTHROMBIN TIME; Value: 13.5; Range: 12.3-14.5; Units: SECONDS; Status: F Test: INR; Value: 1.02; Status: F Test Note: ; THERAPUTIC HUMAN INR VALUES INDICATIONS NORMAL RANGES PROPHYLAXIS/TREATMENT OF: VENOUS THROMBOSIS 2.0-3.0 PULMONARY EMBOLISM 2.0-3.0 PREVENTION OF SYSTEMIC EMBOLISM FROM: TISSUE HEART VALVES 2.0-3.0 ACUTE MYOCARDIAL INFARCTION 2.0-3.0 VALVULAR HEART DISEASE 2.0-3.0 ATRIAL FIBRILLATION 2.0-3.0 MECHANICAL VALVES(HIGH RISK) 2.5-3.5 RECURRENT MYOCARDIAL INFARCTION 2.5-3.5 Lab Order: CARDIAC MARKER PANEL; SPEC'M 06/10/16 05:32 Test: CPK CREATINE PHOSPHOKINASE; Value: 13; Range: 26-192; Abnormal: Below low normal; Units: U/L; Status: F Test: CK-MB VALUE MASS; Value: 1.0; Range: 0.0-3.6; Units: NG/ML; Status: F Test: MB/CK RELATIVE INDEX; Value: 7.69; Range: < OR =4; Abnormal: Above high normal; Status: F Test: TROPONIN I; Value: < 0.02; Range: < 0.10; Units: NG/ML; Status: F Test Note: ; DIAGNOSIS CRITERIA MMB ng/ml Relative Index (RI) NON-AMI < or = 5 N/A JONES ZONE > 5 < or = 4 AMI > 5 > 4 Lab Order: CBC WITH DIFFERENTIAL; SPEC'M 06/10/16 05:32 Test: WHITE BLOOD COUNT; Value: 11.9; Range: 4.0-10.0; Abnormal: Above high normal; Units: K/mm3; Status: F Test: RED BLOOD COUNT; Value: 3.74; Range: 4.00-5.40; Abnormal: Below low normal; Units: M/mm3; Status: F Test: HEMOGLOBIN; Value: 11.5; Range: 12.0-16.0; Abnormal: Below low normal; Units: g/dl; Status: F Test: HEMATOCRIT; Value: 35.7; Range: 36.0-47.0; Abnormal: Below low normal; Units: %; Status: F Test: MEAN CORPUSCULAR VOLUME; Value: 95.4; Range: 80.0-96.0; Units: fl; Status: F Test: MEAN CORPUSCULAR HEMOGLOBIN; Value: 30.8; Range: 27.0-33.0; Units: pg; Status: F Test: MEAN CORPUSCULAR HGB CONC; Value: 32.3; Range: 32.0-36.5; Units: g/dl; Status: F Test: RED CELL DISTRIBUTION WIDTH; Value: 14.3; Range: 11.5-14.5; Units: %; Status: F Test: PLATELET COUNT, AUTOMATED; Value: 63; Range: 150-450; Abnormal: Below low normal; Units: k/mm3; Status: F Test: NEUTROPHILS %; Value: 68.5; Range: 36.0-66.0; Abnormal: Above high normal; Units: %; Status: F Test: LYMPH %; Value: 13.1; Range: 24.0-44.0; Abnormal: Below low normal; Units: %; Status: F Test: MONO %; Value: 10.3; Range: 0.0-5.0; Abnormal: Above high normal; Units: %; Status: F Test: EOS %; Value: 0.2; Range: 0.0-3.0; Units: %; Status: F Test: BASO %; Value: 0.5; Range: 0.0-1.0; Units: %; Status: F Test: LARGE UNSTAINED CELL %; Value: 7.4; Range: 0.0-4.0; Abnormal: Above high normal; Units: %; Status: F Test: NEUTROPHILS #; Value: 8.1; Range: 1.8-7.7; Abnormal: Above high normal; Units: K/mm3; Status: F Test: LYMPH #; Value: 2.4; Range: 1.5-4.5; Units: K/mm3; Status: F Test: MONO #; Value: 1.2; Range: 0.0-0.8; Abnormal: Above high normal; Units: K/mm3; Status: F Test: EOS #; Value: 0.0; Range: 0.0-0.50; Units: K/mm3; Status: F Test: BASO #; Value: 0.1; Range: 0.0-0.2; Units: K/mm3; Status: F Test: LARGE UNSTAINED CELL #; Value: 0.9; Range: 0.0-0.4; Abnormal: Above high normal; Units: K/mm3; Status: F Lab Order: BASIC METABOLIC PROFILE; SPEC'M 06/10/16 05:32 Test: GLUCOSE, FASTING; Value: 88; Range: 83-110; Units: MG/DL; Status: F Test: BLOOD UREA NITROGEN; Value: 93; Range: 7-18; Abnormal: Above high normal; Units: MG/DL; Status: F Test: CREATININE FOR GFR; Value: 1.72; Range: 0.55-1.02; Abnormal: Above high normal; Units: MG/DL; Status: F Test: GLOMERULAR FILTRATION RATE; Value: 31.1; Range: >39; Abnormal: Below low normal; Status: F Test: SODIUM LEVEL; Value: 148; Range: 136-145; Abnormal: Above high normal; Units: MEQ/L; Status: F Test: POTASSIUM SERUM; Value: 3.5; Range: 3.5-5.1; Units: MEQ/L; Status: F Test: CHLORIDE LEVEL; Value: 116; Range: 98-107; Abnormal: Above high normal; Units: MEQ/L; Status: F Test: CARBON DIOXIDE LEVEL; Value: 20; Range: 21-32; Abnormal: Below low normal; Units: MEQ/L; Status: F Test: ANION GAP; Value: 12; Range: 8-16; Units: MEQ/L; Status: F Test: CALCIUM LEVEL; Value: 8.6; Range: 8.8-10.2; Units: MG/DL; Status: F Test Note: ; Units are mL/min/1.73 m2 Chronic Kidney Disease Staging per NKF: Stage I & II GFR >=60 Normal to Mildly Decreased Stage III GFR 30-59 Moderately Decreased Stage IV GFR 15-29 Severely Decreased Stage V GFR <15 Very Little GFR Left ESRD GFR <15 on SENIOR CAREGIVER Lab Order: MAGNESIUM LEVEL; SPEC'06/10/16 05:32 Test: MAGNESIUM LEVEL; Value: 1.9; Range: 1.8-2.4; Units: MG/DL; Status: F Lab Order: THYROID STIMULATING HORMONE; SPEC06/10/16 05:32 Test: THYROID STIMULATING HORMONE; Value: 0.558; Range: 0.358-3.740; Units: uIU/ML; Status: F Lab Order: FREE T4; SPEC06/10/16 05:32 Test: FREE T4; Value: 0.77; Range: 0.76-1.46; Units: NG/DL; Status: F Lab Order: HEPATITIS PROFILE; SPEC06/10/16 10:20 Test: HEPATITIS C VIRUS NI INDEX; Range: <0.8; Units: INDEX; Status: I Test: HEPATITIS B SURFACE ANTIGEN; Range: NEGATIVE; Status: I Test: HEPATITIS B CORE ANTIBODY IGM; Range: NEGATIVE; Status: I Test: HEPATITIS A ANTIBODY IGM; Range: NEGATIVE; Status: I Lab Order: PATHOLOGIST REVIEW COMPREHENSI; SPEC' 06/10/16 05:32 Test: SLIDE REVIEW; Value: Report; Status: F Test: SOURCE; Value: PERIPHERAL SMEAR; Status: F Test: REASON FOR REVIEW; Value: COMPREHENSIVE REVIEW; Status: F Test Note: ; Slide and/or specimen referred to Pathologist for review. Results of the review are located in the EMR Pathology module under Peripheral Smear when completed. Lab Order: MONO REFLEX EBV VCA IgM; SPEC'M 06/10/16 10:20 Test: MONO REFLEX EBV VCA IgM; Value: NEGATIVE; Range: NEGATIVE; Status: F Lab Order: MONOSCREEN; SPEC' 06/10/16 10:20 Test: MONO SCRN; Range: NEGATIVE; Status: I Lab Order: RHEUMATOID FACTOR QUANT; SPEC' 06/10/16 10:20 Test: RHEUMATOID FACTOR QUANT; Value: < 10.0; Range: 0-15.0; Units: IU/ML; Status: F Lab Order: PT & APTT; SPEC 06/10/16 10:21 Test: PROTHROMBIN TIME; Value: 16.0; Range: 12.3-14.5; Abnormal: Above high normal; Units: SECONDS; Status: F Test: INR; Value: 1.27; Status: F Test: PARTIAL THROMBOPLASTIN TIME; Value: 30.9; Range: 26.6-37.1; Units: SECONDS; Status: F Test Note: ; THERAPUTIC HUMAN INR VALUES INDICATIONS NORMAL RANGES PROPHYLAXIS/TREATMENT OF: VENOUS THROMBOSIS 2.0-3.0 PULMONARY EMBOLISM 2.0-3.0 PREVENTION OF SYSTEMIC EMBOLISM FROM: TISSUE HEART VALVES 2.0-3.0 ACUTE MYOCARDIAL INFARCTION 2.0-3.0 VALVULAR HEART DISEASE 2.0-3.0 ATRIAL FIBRILLATION 2.0-3.0 MECHANICAL VALVES(HIGH RISK) 2.5-3.5 RECURRENT MYOCARDIAL INFARCTION 2.5-3.5 Radiology Order: CT ABD & PELVIS: No Contrast Test: CT ABD & PELVIS: No Contrast REASON FOR EXAMINATION: Abdomen Pain; ; CLINICAL HISTORY: Abdominal pain.; TECHNIQUE: Multiple axial, sagittal and coronal CT images were obtained through the abdomen and pelvi; s without administration of oral or IV contrast material.; COMMENTS:; The liver is of uniform attenuation without mass or defect. There is no intra or extrahepatic biliary; ductal dilatation. The spleen is massively enlarged. The gallbladder is within normal limits. The pa; ncreas is of normal contour and attenuation characteristics. There is no evidence of adrenal mass.; The kidneys are normal in size, shape and configuration. No renal or ureteral calculi are identified.; There is no hydroureter or hydronephrosis.; There is no evidence for appendicitis. There is no bowel wall thickening. No evidence for small or la; rge bowel obstruction. There is no evidence of abdominal ascites or lymphadenopathy.; There is no evidence of intrinsic or extrinsic bladder mass. There is no pelvic ascites or lymphadeno; jorge. The uterus and ovaries are atrophic.; Images of the lung bases show no evidence of pleural or parenchymal mass. There are no pleural effusi; ons.; The bony structures are free of lytic or blastic lesions. Multilevel degenerative changes are seen in; volving the thoracolumbar spine.; Scattered calcifications are seen involving the aorta and major branches compatible with atherosclero; sis.; IMPRESSION:; Massive splenomegaly. Otherwise unremarkable study; Thank you for your kind referral of this patient.; ; Outcome: 20:18 Decision to Hospitalize by Provider. br1 06/10 11:25 Patient left the ED. deg Signatures: Dispatcher [employer] EDMS Latricia Romero, Network Technical Analyst Unit deg Alton Pires MD MD br1 Danita Rg RN RN rs3 Ainsley Rodriguez RN RN [id number] Abner Santiago RN RN Yahaira Herman, Network Technical Analyst Unit jlm Bob Bartlett, FILM TOUCH UP INSPECTOR FILM TOUCH UP INSPECTOR Genesis Navarro, Reg Reg [id number] Tahira Avalos RN RN Gail Bledsoe Nicole nb2 Chart Complete MTDD
[2016-06-14 08:00] VITALS: BP 127/65
[2016-06-14] MEDS ORDERED: FERR325T PO (08:10)
[2016-06-14] MEDS ORDERED: METO12TA PO (08:10)
[2016-06-14] MEDS ORDERED: ELIQ5TAB PO (08:10)
[2016-06-14] MEDS ORDERED: KEFL500C7 PO (08:22)
--- NOTE | 2016-06-14 17:36 | DSES ---
DATE OF ADMISSION: 06/09/2016 DATE OF DISCHARGE: 06/14/2016 PRIMARY CARE PROVIDER: Dr. Andrade Kimball CONSULTANTS: None. PROCEDURES: None. COMPLICATIONS: None. ADMISSION/DISCHARGE DIAGNOSES: 1. Sepsis secondary to urinary tract infection. 2. Recurrent urinary tract infection. 3. Splenomegaly. 4. Anemia and thrombocytopenia. 5. Hypernatremia, hyperchloremia secondary to intravenous fluid. 6. History of cor pulmonale. 7. Acute kidney injury secondary to sepsis and dehydration. 8. Hypotension. 9. Hypothyroidism. 10. Atrial flutter. HOSPITALIZATION COURSE: The patient is a 70-year-old female who presented to [facility] on 06/09/2016 for generalized discomfort. Two days prior to the hospitalization visit, the patient was seen by the primary care provider in the outpatient setting. The patient was started on Levaquin for urinary tract infection. During the encounter, the patient was found to have hypotension with a blood pressure of 88/44, and the patient was not able to tolerate any significant oral intake due to discomfort and patient also noted to have markedly decreased urinary output. On admission, the patient was found to have tachycardia with a heart rate of greater than 120, white count greater than 12 and the patient was admitted for sepsis from UTI . The patient's past urine cultures were reviewed, which showed significant for Escherichia (E) coli and Klebsiella, sensitive to Rocephin. Urine culture was obtained, and the patient was started on Rocephin, and the patient was started on IV normal saline. The patient continued to have very soft blood pressure, and the patient required aggressive and continuous IV fluid. During examination, the patient was found to have splenomegaly with anemia and thrombocytopenia. Workup of splenomegaly was initiated, and the case was discussed with hematology/rn oncology. On the second day to third day of admission, the patient started showing elevated sodium and chloride levels, and the patient's IV fluid was changed from normal saline to D5 half normal, then to D5W. During hospitalization, two repeat EKGs were obtained. The patient showed persistence of atrial fibrillation, so the patient was started on a beta rosalina and Eliquis for her atrial fibrillation. Then, the sodium and chloride abnormality gradually resolved. With IV fluid, the patient's acute kidney injury from sepsis and dehydration continued to improve. Later, the urine culture came back showing as a contaminant. That sample was taken 2 days after outpatient antibiotic use. A repeat urine culture was obtained, which later came back negative. The patient continued to improve clinically. Also, patient was continued on empiric antibiotic treatment with Rocephin to treat presumed Klebsiella and E. Coli urinary tract infection (UTI). The patient was being followed by physical therapy, and the patient showed significant improvement. On 06/14/2016, the patient was medically stable for discharge with recommendations to followup with primary care provider, Dr. Andrade Kimball, within 1 week and the patient was recommended to get hematology/oncology referral from the primary care provider (PCP) to rule out any blood-related disease. OBJECTIVE: VITAL SIGNS: Temperature is 97, pulse is 90, respirations 18, blood pressure 127/65, pulse oximetry is 97% in room air. LABORATORY DATA: WBC 5.1, hemoglobin 9.3, hematocrit is 28.8, platelet count is 49. Sodium is 148, potassium 3.4, chloride is 121, carbon dioxide is 20, BUN 27, creatinine 0.78, GFR is greater than 60, fasting glucose 109, calcium is 7.2, magnesium 2. Blood culture is negative after 72 hours times two sets. Urine culture first set obtained on 06/09/2016 showed contamination. Methicillin-resistant Staphylococcus aureus (MRSA) screening is negative. The second set of urine culture obtained on 06/11/2016 showed no growth. IMAGING STUDIES: CT of the chest on 06/09/2016 showed no acute cardiopulmonary findings, stable, calcification superimposed over the right upper lobe. CT of the abdomen and pelvis without contrast showed massive splenomegaly. Abdominal ultrasound on 06/10/2016 showed no evidence of portal vein thrombosis, venous stasis or reversal of flow. No ascites. Spleen is significantly enlarged. CT of the chest without contrast on 06/10/2016 showed no adenopathy. No acute cardiopulmonary findings. No mass, no nodules. Splenomegaly. Chest x-ray on 06/11/2016 showed mild cardiomegaly and vascular cephalization consistent with some degree of congestive heart failure. No evidence of pleural effusion or pulmonary edema. DISCHARGE INSTRUCTIONS: Discontinue line. Discharge home. Activity as tolerated. Low-salt diet as tolerated. The patient should follow with Dr. Kimball, primary care provider, within 1 week. The patient was recommended to get outpatient referral to see hematology/ oncology specialists to evaluate her splenomegaly and to rule out any possible related disease. DISCHARGE MEDICATIONS: - Eliquis 5 mg by mouth twice a day - Keflex 500 mg by mouth every 12 hours for four pills - ferrous sulfate 325 mg by mouth twice a day - metoprolol tartrate 12.5 mg by mouth twice a day - ProAir inhalation as needed for shortness of breath - aspirin 81 mg by mouth daily - Pulmicort two puff inhalation twice a day - folic acid 1 mg by mouth daily - Synthroid 112 mcg by mouth daily - magnesium oxide 400 mg by mouth daily - oxybutynin 10 mg by mouth daily - simvastatin 20 mg by mouth daily - thiamine 100 mg by mouth daily - Spiriva inhalation daily - vitamin D 50,000 units by mouth every 2 weeks DISCHARGE CONDITION: Stable. DISCHARGE TIME: Greater than 30 minutes. MTDD
[2016-07-11 00:09] LABS: COMPLEMENT FACTOR B LEVEL 144.2 mcg/mL (127.6-278.5)
== END 2016-06-14 10:32 | disposition home or self-care (01) | DRG 872 ==
LOC: M ED 17:10 → M ED INP 21:06 → M ICU 06-10 11:33 → M PCU 06-11 10:20
PROVIDERS: ADMIT Hospitalist; ATTEND Internal Medicine
DX: A41.9 Sepsis, unspecified organism (principal); N17.9 Acute kidney failure, unspecified; N39.0 Urinary tract infection, site not specified; E87.0 Hyperosmolality and hypernatremia; I48.92 Unspecified atrial flutter; I47.1 Supraventricular tachycardia; E86.0 Dehydration; I95.9 Hypotension, unspecified; R16.1 Splenomegaly, not elsewhere classified; I27.81 Cor pulmonale (chronic); J44.9 Chronic obstructive pulmonary disease, unspecified; E78.5 Hyperlipidemia, unspecified; I34.0 Nonrheumatic mitral (valve) insufficiency; D69.6 Thrombocytopenia, unspecified; E87.8 Other disorders of electrolyte and fluid balance, not elsewhere classified; E03.9 Hypothyroidism, unspecified; Z79.01 Long term (current) use of anticoagulants; Z79.899 Other long term (current) drug therapy; Z79.82 Long term (current) use of aspirin; Z87.440 Personal history of urinary (tract) infections; Z87.891 Personal history of nicotine dependence; Z88.2 Allergy status to sulfonamides; Z88.8 Allergy status to other drugs, medicaments and biological substances

== ENCOUNTER → 2016-07-03 | Outpatient (REF) | payer MEDICARE, OTHER ==
[~2016-07-03] MED LIST changes: +ELIQ5TAB PO; +FERR325T PO; +METO12TA PO
[2016-07-03 13:18] LABS: REASON FOR REVIEW COMPREHENSIVE REVIEW
== END ==
LOC: M LAB REF 12:25
PROVIDERS: ATTEND Internal Medicine Medical Oncology
DX: R16.1 Splenomegaly, not elsewhere classified (principal)

== ENCOUNTER 2016-07-19 07:50 | Inpatient (IN) | payer MEDICARE, OTHER ==
[~2016-07-19] VITALS: Ht 165.1 cm; Wt 65.5 kg
[2016-07-19] MEDS: TIOTROPIUM INHALER/CAPSULE (SPIRIVA) INH SCH (08:00)
[2016-07-19] MEDS ORDERED: TIOTROPIUM INHALER/CAPSULE (SPIRIVA) INH SCH (08:00)
[2016-07-19] MEDS ORDERED: SPIR1CAP INH (08:23)
[2016-07-19] MEDS ORDERED: ESTR625TA PO (08:23)
[2016-07-19] MEDS ORDERED: VALA1TAB PO (08:23)
[2016-07-19] MEDS ORDERED: ELIQ5TAB PO (08:23)
[2016-07-19] MEDS ORDERED: ERGO8000 PO (08:23)
[2016-07-19] MEDS ORDERED: IPRATROPIUM 0.02% SOLN 0.5MG/2.5 ML NEB INH ONE (08:30)
[2016-07-19] MEDS ORDERED: ALBUTEROL SULFATE 2.5 MG/0.5 ML INH NEB SOLN INH ONE (08:30)
[2016-07-19] MEDS ORDERED: methylPREDNISolone INJ 125 MG/2 ML VIAL (J2930) IV ONE (08:30)
[2016-07-19] MEDS ORDERED: SPIRONOLACTONE 25 MG TAB PO SCH (09:00)
[2016-07-19 09:08] LABS: INR 1.3
[2016-07-19] MEDS ORDERED: FUROSEMIDE 20 MG/2 ML VIAL (J1940) IV ONE (09:15)
[2016-07-19 09:17] LABS: ALBUMIN/GLOBULIN RATIO 1.11 (1.00-1.93); ALKALINE PHOSPHATASE 47 U/L (45-117); ALT/SGPT 8 U/L (12-78); ANION GAP 8 MEQ/L (8-16); AST/SGOT 6 U/L (15-37); BILIRUBIN,DIRECT 0.1 MG/DL (0.0-0.2); BILIRUBIN,TOTAL 0.5 MG/DL (0.2-1.0); BLOOD UREA NITROGEN 17 MG/DL (7-18); CALCIUM LEVEL 7.6 MG/DL (8.8-10.2); CARBON DIOXIDE LEVEL 29 MEQ/L (21-32); CHLORIDE LEVEL 112 MEQ/L (98-107); CREATININE FOR GFR 0.82 MG/DL (0.55-1.02); FREE T4 0.94 NG/DL (0.76-1.46); GLOMERULAR FILTRATION RATE > 60.0 (>39); GLUCOSE, FASTING 109 MG/DL (83-110); POTASSIUM SERUM 3.4 MEQ/L (3.5-5.1); SODIUM LEVEL 149 MEQ/L (136-145); TOTAL PROTEIN 5.7 GM/DL (6.4-8.2)
[2016-07-19 09:18] LABS: DIFF SLIDE NUMBER 121; MEAN CORPUSCULAR HEMOGLOBIN 28.4 pg (27.0-33.0); MEAN CORPUSCULAR HGB CONC 29.9 g/dl (32.0-36.5); MEAN CORPUSCULAR VOLUME 94.9 fl (80.0-96.0); PLATELET COUNT, AUTOMATED 132 k/mm3 (150-450); RED CELL DISTRIBUTION WIDTH 13.2 % (11.5-14.5); WHITE BLOOD COUNT 4.4 K/mm3 (4.0-10.0)
--- NOTE | 2016-07-19 09:32 | REP ---
PORTABLE CHEST, ONE VIEW: HISTORY: Chest pain. COMPARISON: 06/11/2016. An increase in interstitial markings is present in the lungs. A small right pleural effusion is present. The cardiac silhouette is enlarged. The pulmonary vasculature is prominent. IMPRESSION: Findings consistent with congestive heart failure. Signed by Parker Javed MD 07/19/2016 10:15 A
[2016-07-19] MEDS ORDERED: METO-346 PO (10:09)
[2016-07-19] MEDS ORDERED: LEVO100T5 PO (10:09)
[2016-07-19] MEDS ORDERED: POTASSIUM CHLORIDE 10 MEQ SR TABLET PO ONE (10:30)
[2016-07-19 10:37] LABS: REASON FOR REVIEW COMPREHENSIVE REVIEW
[2016-07-19 10:40] LABS: BASO % 0.1 % (0.0-1.0); EOS % 0.6 % (0.0-3.0); LARGE UNSTAINED CELL # 0.3 K/mm3 (0.0-0.4); LARGE UNSTAINED CELL % 7.7 % (0.0-4.0); LYMPH # 0.6 K/mm3 (1.5-4.5); LYMPH % 13.9 % (24.0-44.0); MONO # 0.4 K/mm3 (0.0-0.8); MONO % 9.5 % (0.0-5.0); NEUTROPHILS % 68.1 % (36.0-66.0); RETIC HEMOGLOBIN CONTENT CHr 27.9 PG (24-36); RETICULOCYTE ABSOLUTE ADVIA212 102 x10(9)/L (17-77)
[2016-07-19 10:56] LABS: FERRITIN 29 NG/ML (8-252); PERCENT SATURATION 10.2 % (13.2-37.4); TOTAL IRON BINDING CAPACITY 225 UG/DL (250-450)
[2016-07-19 11:10] VITALS: BP 130/72
[2016-07-19] MEDS ORDERED: METOPROLOL TART 12.5 MG PER 1/2 TAB PO PRN (11:45)
[2016-07-19] MEDS ORDERED: ALBUTEROL 90 MCG/ACT 8GM HFA INHALER INH PRN (11:45)
[2016-07-19] MEDS: ENOXAPARIN 40 MG/0.4 ML SYRINGE (J1650) SC SCH (11:46)
[2016-07-19] MEDS: FUROSEMIDE 40 MG/4 ML VIAL (J1940) IV SCH ×2 (12:00→17:27)
--- NOTE | 2016-07-19 13:08 | HPE ---
DATE OF ADMISSION: 07/19/2016 PRIMARY CARE PHYSICIAN: Andrade Kimball MD CHIEF COMPLAINT: Shortness of breath. HISTORY OF PRESENTING ILLNESS: A 71-year-old female with a history of atrial fibrillation. Recent echocardiogram was 06/10/2016. Ejection fraction 60% to 65% with no valvular disease. Hypertension, cor. pulmonale, chronic obstructive pulmonary disease (COPD), hyperlipidemia, was recently admitted 06/09/2016 to 06/14/2016 with sepsis secondary to urinary tract infection (UTI), acute kidney injury secondary to sepsis and dehydration, atrial flutter, discharged home on metoprolol 12.5 mg twice a day, was in her usual state of health, is very active at home until yesterday when she woke up in the middle of the night complaining of paroxysmal nocturnal dyspnea. She denies any salt or water noncompliance. No recent weight gain, lower extremity edema. Denies any fever, chills. No cough. No sick contacts. Denies any palpitations, lightheadedness, or dizziness prior to the episode. She was noticed to have atrial fibrillation (AFib) with ventricular rate of 82-146 in the emergency room on presentation and chest x-ray showing pulmonary edema. The patient is admitted for congestive heart failure (CHF), acute onset, most likely secondary to arhythmia. The patient otherwise denies any changes in weight, appetite. Denies any facial changes, nausea, vomiting, abdominal pain, diarrhea, melena, bright red blood per rectum, black tarry stools, hematemesis, dysuria, urgency, frequency, cough, diaphoresis, upper or lower extremity weakness, depression, or anxiety. Hospitalist service was called for evaluation and management of the patient's new-onset CHF. PAST MEDICAL HISTORY: 1. COPD. 2. Hypothyroidism. 3. Hyperlipidemia. 4. Hypertension. 5. Cor. pulmonale. 6. Mild to moderate mitral valve insufficiency. Repeat echocardiogram May 2016 shows no valvular disease. 7. History of atrial flutter. PAST SURGICAL HISTORY: 1. Tonsillectomy. 2. Adenoidectomy. 3. Thyroidectomy. 4. Appendectomy. FAMILY HISTORY: Colorectal cancer and lupus. SOCIAL HISTORY: Quit smoking 10 years ago. Denies drug use. Drinks two glasses of wine nightly. Has not had any for the past month. ALLERGIES: To SULFA, TETRACYCLINE, AMBIEN. REVIEW OF SYSTEMS: 12-point system negative aside from positive findings in history of present illness (HPI); . HOME MEDICATIONS: From previous admission in June 2016: - Eliquis 5 mg twice a day - ferrous sulfate 325 mg twice a day - metoprolol 12.5 mg twice a day - ProAir as needed - aspirin 81 mg daily - Pulmicort two puffs twice a day - folic acid 1 mg daily - Synthroid 112 mcg daily - magnesium oxide 400 mg daily - oxybutynin 10 mg daily - simvastatin 20 mg daily - thiamine 100 mg daily - Spiriva inhaled daily - vitamin D 50,000 units every 2 weeks PHYSICAL EXAMINATION: On admission, blood pressure 130/72, respiratory rate 22, oxygen saturation 97% on 2 liters nasal cannula, afebrile at 97.2, pulse ranges from 80-146 atrial fibrillation. Generally, the patient is awake, alert, oriented times three. Appears her stated age. No respiratory distress. Able to speak in full sentences. Pupils are round and reactive to light and accommodation. Extraocular muscles are intact. Normocephalic, atraumatic. No conversational dyspnea. Positive jugular venous distention. No thyromegaly. No cervical lymphadenopathy. LUNGS: Diminished breath sounds. Bilateral rales. HEART: S1, S2, irregularly irregular. ABDOMEN: Is soft, nontender, nondistended. Positive bowel sounds. EXTREMITIES: Trace to 1+ pitting edema. EKG: Sinus rhythm with ventricular rate of 81, SC interval 141, QRS duration of 82. LABORATORY DATA: White count 4.4, hemoglobin 10, hematocrit 35, platelet count 132. Sodium 149, potassium 3.4, chloride 112, bicarbonate 29, BUN 17, creatinine 0.82, glucose of 109, iron 23, TIBC 225, transferrin saturation 10.2, total CK 16, MB fraction 1.2, relative index 7.5, troponin less than 0.02, BNP of 595. Chest x-ray: CHF. ASSESSMENT AND PLAN: This is a 71-year-old female with a history of atrial flutter, on chronic Eliquis and metoprolol, hypertension, chronic obstructive pulmonary disease, cor. pulmonale, presented to the emergency room with shortness of breath and new-onset acute congestive heart failure. Previous echocardiogram shows normal systolic function, ejection fraction (EF) of 60% to 65%. [facility] the following [facility]: 1. New-onset congestive heart failure, most likely secondary to atrial flutter with rapid ventricular rate. Continue on telemetry. Monitor for multifocal atrial tachycardia (MAT) versus supraventricular tachycardia (SVT). At this time, continue with oxygen supplementation, as well as for saturations greater than 90%, as well as metoprolol 12.5 mg twice a day. Diurese with Lasix 40 mg intravenous (IV) every 6 hours, net negative value 1 liter daily. Hold for systolic pressure less than 106, as well as creatinine greater than 1.5. Continue on Eliquis for the AFib. Strict intake and output (I and O), daily weights, fluid restriction. Echocardiogram was done May 2016. 2. Paroxysmal atrial fibrillation. On chronic Eliquis metoprolol for rate control. Monitor on telemetry. Adjust metoprolol as needed, providing that the blood pressure is adequate. Monitor for MAT. Increase oxygen for saturations 88% to 92%. 3. Anemia and thrombocytopenia. Check peripheral blood smear. Monitor the patient's platelet count during the hospital stay. Lovenox for subcutaneous prophylaxis. Check hemoccult stool and peripheral smear. 4. History of cor. pulmonale with exacerbation. Continue with intravenous (IV) Lasix hydration. 5. Hypothyroidism. Continue Synthroid. 6. Splenomegaly. Chronic outpatient followup.
[2016-07-19] MEDS: ASPIRIN 81 MG ENTERIC TAB PO SCH (14:15)
[2016-07-19] MEDS: oxyBUTYnin *DITROPAN XL* 5 MG TABCR PO SCH (14:15)
[2016-07-19] MEDS: LEVOTHYROXINE 0.1 MG TAB (100 MCG) PO SCH (14:15)
[2016-07-19] MEDS: SIMVASTATIN 20 MG TAB PO SCH (14:15)
[2016-07-19] MEDS: FOLIC ACID 1 MG TAB PO SCH (14:15)
[2016-07-19] MEDS: APIXABAN 5 MG TAB (ELIQUIS) PO SCH ×2 (14:15→20:43)
[2016-07-19] MEDS: THIAMINE 100 MG TAB PO SCH (14:15)
[2016-07-19 15:45] VITALS: BP 130/101
[2016-07-19 19:42] LABS: ANION GAP 7 MEQ/L (8-16); BLOOD UREA NITROGEN 19 MG/DL (7-18); CALCIUM LEVEL 7.9 MG/DL (8.8-10.2); CARBON DIOXIDE LEVEL 32 MEQ/L (21-32); CHLORIDE LEVEL 110 MEQ/L (98-107); CREATININE FOR GFR 0.82 MG/DL (0.55-1.02); GLOMERULAR FILTRATION RATE > 60.0 (>39); GLUCOSE, FASTING 183 MG/DL (83-110); POTASSIUM SERUM 4.5 MEQ/L (3.5-5.1); SODIUM LEVEL 149 MEQ/L (136-145)
[2016-07-19 19:43] VITALS: BP 157/70
[2016-07-19 23:59] VITALS: BP 140/75
[2016-07-20] MEDS: FUROSEMIDE 40 MG/4 ML VIAL (J1940) IV SCH ×2 (00:23→05:18)
[2016-07-20 05:25] VITALS: BP 124/76
[2016-07-20] MEDS: LEVOTHYROXINE 0.1 MG TAB (100 MCG) PO SCH (05:29)
[2016-07-20 06:00] LABS: ANION GAP 7 MEQ/L (8-16); BLOOD UREA NITROGEN 19 MG/DL (7-18); CALCIUM LEVEL 7.8 MG/DL (8.8-10.2); CARBON DIOXIDE LEVEL 36 MEQ/L (21-32); CHLORIDE LEVEL 105 MEQ/L (98-107); CREATININE FOR GFR 0.81 MG/DL (0.55-1.02); GLOMERULAR FILTRATION RATE > 60.0 (>39); GLUCOSE, FASTING 100 MG/DL (83-110); POTASSIUM SERUM 4.2 MEQ/L (3.5-5.1); SODIUM LEVEL 148 MEQ/L (136-145)
[2016-07-20] MEDS: ENOXAPARIN 40 MG/0.4 ML SYRINGE (J1650) SC SCH (07:05)
--- NOTE | 2016-07-20 07:39 | ECGEPIP ---
Stationary ECG Study [facility] Test Date: 2016-07-19 Pat Name: MERON BERRY Department: Room: [place] [address] Gender: F Setter [employer]: KIRSTIN : 1945 Requested By: TARAH Shaw Order Number: [id number] Reading MD: Charity Koo Measurements Intervals [place] Rate: 83 P: SD: 0 QRS: 95 QRSD: 78 T: 136 QT: 398 QTc: 470 Interpretive Statements NORMAL SINUS RHYTHM PVC PREVIOUS AFIB 06/11/16 LOW QRS VOLTAGE IN EXTREMITY LEADS ST T-WAVE ABNORMALITY,ANTLAT SLIGHTLY MORE PROMINENT Electronically Signed On 07-20-2016 7:38:54 EST by Charity Koo
[2016-07-20 08:00] VITALS: BP 131/75
--- NOTE | 2016-07-20 08:01 | ECGEPIP ---
Stationary ECG Study [facility] Test Date: 2016-07-20 Pat Name: MERON BERRY Department: Room: [place] [address] Gender: F Assistant To The Director: JOHNNY : 1945 Requested By: TARAH Shaw Order Number: [id number] Reading MD: Charity Koo Measurements Intervals [place] Rate: 76 P: SD: 0 QRS: 81 QRSD: 81 T: 198 QT: 385 QTc: [address] Interpretive [address]R PAC ST DEVIATION AND T-WAVE ABNORMALITY, CONSIDER LATERAL ISCHEMIA ST DEVIATION AND T-WAVE ABNORMALITY, CONSIDER INFERIOR ISCHEMIA LOWVOLTAGE LIMB LEADS ST T ABN MORE MARKED C/W 07/19/16 PRIOR WITH PVCS Electronically Signed On 07-20-2016 8:01:31 EST by Charity Koo
--- NOTE | 2016-07-20 08:22 | REP ---
Portable chest x-ray: Single view. History: Shortness of breath. Comparison study July 19, 2016. Findings: EKG monitoring electrodes overlie the chest. There is a linear density in the right perihilar region which may be discoid atelectasis. There is slight blunting of the right lateral pleural angle again noted. Pulmonary vasculature is somewhat cephalized. Heart is enlarged unchanged. Impression: Cardiomegaly and cephalization of the pulmonary vasculature, question small right effusion. Right perihilar density may reflect discoid atelectasis. No new infiltrate. Signed by Quirino Herrera MD 07/20/2016 10:43 A
[2016-07-20] MEDS ORDERED: FUROSEMIDE 40 MG TAB PO SCH (09:00)
[2016-07-20] MEDS: APIXABAN 5 MG TAB (ELIQUIS) PO SCH ×2 (09:28→21:36)
[2016-07-20] MEDS: ASPIRIN 81 MG ENTERIC TAB PO SCH (09:28)
[2016-07-20] MEDS: oxyBUTYnin *DITROPAN XL* 5 MG TABCR PO SCH (09:28)
[2016-07-20] MEDS: SIMVASTATIN 20 MG TAB PO SCH (09:29)
[2016-07-20] MEDS: FOLIC ACID 1 MG TAB PO SCH (09:29)
[2016-07-20] MEDS: THIAMINE 100 MG TAB PO SCH (09:29)
[2016-07-20] MEDS ORDERED: FUROSEMIDE 100 MG/10 ML VIAL (J1940) IV ONE (10:00)
[2016-07-20] MEDS: TIOTROPIUM INHALER/CAPSULE (SPIRIVA) INH SCH (11:22)
[2016-07-20 12:24] VITALS: BP 100/64
[2016-07-20 16:00] VITALS: BP 120/78
[2016-07-20] MEDS ORDERED: DIGOXIN INJ 0.5 MG/2 ML AMP (J1160) IV STA (16:34)
--- NOTE | 2016-07-20 16:39 | IPN ---
DATE: 07/20/2016 Patient is seen and examined at the bedside. Chart has been reviewed. This morning, she states that her shortness of breath is significantly improved. No chest pain, pressure, or tightness. No pleuritic chest pain, fever, or chills. Overnight, patient was found to have multifocal atrial tachycardia (MAT) on telemetry, ventricular rate of 139. She denied any palpitations, lightheadedness, or near syncope. Patient states that she refused the Lovenox and she has had bruising from her apixaban. Temperature 95.8, pulse 139 and regular, respiratory 20, blood pressure 124/76, 99% on two liters nasal cannula. Generally awake, alert, oriented times three. Answering questions appropriately. No use of respiratory or accessory muscles, able to complete full sentences. Mild jugular venous distention. No cervical lymphadenopathy or thyromegaly. Moist mucous membranes. Lungs are diminished, bilateral crackles. Heart S1, S2, irregularly irregular. Abdomen is soft, nontender, nondistended. Positive bowel sounds. Extremities no pitting edema. Input and output: Input of 1040, output of 2200, negative 1160. This morning input of 120, output 2800, negative 2680, current weight is 73.2 kg. LABORATORY DATA: 07/19/2016, CBC has been reviewed. Metabolic panel: Sodium 148, potassium 4.2, chloride 105, bicarbonate 36, BUN 19, creatinine 0.81, glucose 100, troponin 0.03. Blood cultures, two sets, negative. Chest xray, repeat, on 07/20/2016, cardiomegaly, cephalization, pulmonary vasculature, question of right small pleural effusion, right perihilar density may reflect discoid atelectasis but no new infiltrate. ASSESSMENT AND PLAN: This is a 71-year-old female with history of chronic obstructive pulmonary disease (COPD), cor pulmonale, hypothyroidism, hyperlipidemia, hypertension, moderate mitral valve insufficiency with repeat echo in May shows no valvular disease, history of multifocal atrial tachycardia (MAT) and atrial flutter, on chronic metoprolol and Eliquis, presents with worsening shortness of breath, found to have pulmonary edema most likely from atrial flutter with rapid ventricular rate. Patient was found to have heart rate of 146 on emergency room (ER) evaluation. CURRENT ISSUES: 1. New onset congestive heart failure (CHF), most likely secondary to atrial flutter with rapid ventricular rate of 146. At this time patient is kept on strict intake and output, daily weights. Has been given Lasix with good diuresis. Will continue with diuresis. Patient is adamant about leaving for a birthday green party tomorrow for her son who will be turning 40 years old. Continue with Eliquis for atrial fibrillation. 2. Paroxysmal atrial flutter, currently with multifocal atrial tachycardia (MAT). On Eliquis for prophylaxis for CVA. 3. Anemia and thrombocytopenia. Check peripheral blood smear and monitor patient's platelets. 4. History of cor pulmonale. Currently on Lasix. 5. Hypothyroidism. On Synthroid. 6. Splenomegaly, chronic. Outpatient followup.
[2016-07-20 18:27] LABS: ANION GAP 8 MEQ/L (8-16); BLOOD UREA NITROGEN 24 MG/DL (7-18); CALCIUM LEVEL 7.9 MG/DL (8.8-10.2); CARBON DIOXIDE LEVEL 35 MEQ/L (21-32); CHLORIDE LEVEL 103 MEQ/L (98-107); CREATININE FOR GFR 0.95 MG/DL (0.55-1.02); GLOMERULAR FILTRATION RATE > 60.0 (>39); GLUCOSE, FASTING 99 MG/DL (83-110); POTASSIUM SERUM 3.3 MEQ/L (3.5-5.1); SODIUM LEVEL 146 MEQ/L (136-145)
[2016-07-20 20:00] VITALS: BP 104/62
[2016-07-20] MEDS ORDERED: DIGOXIN INJ 0.5 MG/2 ML AMP (J1160) IV ONE (22:00)
[2016-07-21] VITALS (7 sets, daily range): BP systolic 106–134; BP diastolic 58–74
[2016-07-21] MEDS: LEVOTHYROXINE 0.1 MG TAB (100 MCG) PO SCH (05:40)
[2016-07-21 06:18] LABS: ANION GAP 9 MEQ/L (8-16); BLOOD UREA NITROGEN 21 MG/DL (7-18); CALCIUM LEVEL 7.4 MG/DL (8.8-10.2); CARBON DIOXIDE LEVEL 34 MEQ/L (21-32); CHLORIDE LEVEL 104 MEQ/L (98-107); DIGOXIN LEVEL 0.7 NG/ML (0.5-2.0); GLOMERULAR FILTRATION RATE > 60.0 (>39); GLUCOSE, FASTING 96 MG/DL (83-110); POTASSIUM SERUM 3.2 MEQ/L (3.5-5.1); SODIUM LEVEL 147 MEQ/L (136-145)
[2016-07-21] MEDS ORDERED: POTASSIUM CHLORIDE 10 MEQ SR TABLET PO ONE (06:30)
[2016-07-21] MEDS: TIOTROPIUM INHALER/CAPSULE (SPIRIVA) INH SCH (07:33)
[2016-07-21] MEDS: LEVALBUTEROL 1.25 MG/0.5 ML CONCENTRATE NEB INH SCH ×5 (08:00→23:22)
[2016-07-21] MEDS: THIAMINE 100 MG TAB PO SCH (08:10)
[2016-07-21] MEDS: FOLIC ACID 1 MG TAB PO SCH (08:10)
[2016-07-21] MEDS: APIXABAN 5 MG TAB (ELIQUIS) PO SCH ×2 (08:10→21:13)
[2016-07-21] MEDS: predniSONE 20 MG TAB PO SCH (08:10)
[2016-07-21] MEDS: ASPIRIN 81 MG ENTERIC TAB PO SCH (08:10)
[2016-07-21] MEDS: oxyBUTYnin *DITROPAN XL* 5 MG TABCR PO SCH (08:10)
[2016-07-21] MEDS: SIMVASTATIN 20 MG TAB PO SCH (08:10)
--- NOTE | 2016-07-21 08:34 | ECGEPIP ---
Stationary ECG Study [facility] - ED Test Date: 2016-07-19 Pat Name: MERON BERRY Department: Room: - Gender: F Sign Language Teacher: ct : 1945 Requested By: Thomas Vincent Order Number: [id number] Reading MD: Grace Antonio Measurements Intervals [place] Rate: 86 P: [place]: 0 QRS: 74 QRSD: 85 T: 116 QT: 363 QTc: 435 Interpretive Statements SINUS RHYTHM WITH VENTRICULAR PREMATURE COMPLEXES LOW QRS VOLTAGE IN EXTREMITY LEADS NONSPECIFIC ST & T-WAVE ABNORMALITY ABNORMAL RHYTHM ECG BASELINE ARTIFACT LIMITS INTERPRETATION ATRIAL FIBRILLATION 06/11/16 Electronically Signed On 07-21-2016 8:33:58 EST by Grace Antonio
--- NOTE | 2016-07-21 08:34 | ECGEPIP ---
Stationary ECG Study [facility] - ED Test Date: 2016-07-19 Pat Name: MERON BERRY Department: Room: - Gender: F Operational Intelligence Officer: emmanuel : 1945 Requested By: Thomas Vincent Order Number: [id number] Reading MD: Grace Antonio Measurements Intervals [place] Rate: 81 P: 41 GA: 141 QRS: 70 QRSD: 82 T: 116 QT: 367 QTc: 426 Interpretive Statements SINUS RHYTHM WITH OCCASIONAL VENTRICULAR PREMATURE COMPLEXES LOW QRS VOLTAGE IN EXTREMITY LEADS NONSPECIFIC ST & T-WAVE ABNORMALITY MORE PRONOUNCED COMPARED 8:22 Electronically Signed On 07-21-2016 8:34:43 EST by Grace Antonio
[2016-07-21] MEDS ORDERED: DIGOXIN INJ 0.5 MG/2 ML AMP (J1160) IV STA (08:35)
[2016-07-21 08:56] LABS: MAGNESIUM LEVEL 1.9 MG/DL (1.8-2.4)
--- NOTE | 2016-07-21 09:27 | REP ---
REASON: Dyspnea. COMPARISON: 07/20/2016 at 7:52 a.m. The technique utilized in obtaining the radiograph has magnified the cardiac silhouette and accentuated the interstitial markings. Cardiomediastinal silhouette and lung mixon are unchanged. There is cardiomegaly accentuated by technique and there is a persistent opacity in the right lower lung field. Once again, there is pulmonary vascular redistribution status quo. There is no change in the osseous structures. IMPRESSION: No significant change. Signed by Sachin Carrion DO 07/21/2016 10:05 A
[2016-07-21] MEDS: diltiaZEM 125 MG in NS 100 ML IV SCH (16:15)
[2016-07-21] MEDS ORDERED: DIGOXIN INJ 0.5 MG/2 ML AMP (J1160) IV ONE (18:00)
[2016-07-21 18:54] LABS: ANION GAP 7 MEQ/L (8-16); BLOOD UREA NITROGEN 20 MG/DL (7-18); CALCIUM LEVEL 7.5 MG/DL (8.8-10.2); CARBON DIOXIDE LEVEL 33 MEQ/L (21-32); CHLORIDE LEVEL 105 MEQ/L (98-107); CREATININE FOR GFR 0.97 MG/DL (0.55-1.02); GLOMERULAR FILTRATION RATE > 60.0 (>39); GLUCOSE, FASTING 159 MG/DL (83-110); POTASSIUM SERUM 3.9 MEQ/L (3.5-5.1); SODIUM LEVEL 145 MEQ/L (136-145)
[2016-07-22] VITALS: BP 119/57
[2016-07-22 04:00] VITALS: BP 106/55
[2016-07-22] MEDS: LEVALBUTEROL 1.25 MG/0.5 ML CONCENTRATE NEB INH SCH ×5 (04:00→19:44)
[2016-07-22] MEDS: LEVOTHYROXINE 0.1 MG TAB (100 MCG) PO SCH (05:20)
[2016-07-22 06:03] LABS: CALCIUM LEVEL 7.2 MG/DL (8.8-10.2); CREATININE FOR GFR 1.02 MG/DL (0.55-1.02); DIGOXIN LEVEL 1.1 NG/ML (0.5-2.0); GLOMERULAR FILTRATION RATE 56.7 (>39); POTASSIUM SERUM 3.9 MEQ/L (3.5-5.1)
[2016-07-22] MEDS: TIOTROPIUM INHALER/CAPSULE (SPIRIVA) INH SCH (07:38)
--- NOTE | 2016-07-22 07:59 | ECGEPIP ---
Stationary ECG Study [facility] Test Date: 2016-07-21 Pat Name: MERON BERRY Department: Room: [place] [address] Gender: F Building Architect: ALYSSA : 1945 Requested By: TARAH Shaw Order Number: [id number] Reading MD: Charity Koo Measurements Intervals [place] Rate: 121 P: [place]: 0 QRS: 105 QRSD: 74 T: 231 QT: 347 QTc: 494 Interpretive Statements SINUS TACH WITH FREQENTPACS PVC VS AFIB RHYTHM STRIP WOULD BE HELPFUL RIGHT AXIS DEVIATION PREVIOUSLY BORDERLINE LOW QRS VOLTAGE IN EXTREMITY LEADS ST DEVIATION AND MODERATE T-WAVE ABNORMALITY, CONSIDER LATERAL ISCHEMIA MORE MARKED SUGGEST REPEAT WITH MORE CLEARLY DEFINED RHYTHM STRIP COMPARED WITH 07/20/16 Electronically Signed On 07-22-2016 7:58:52 EDT by Charity Koo
[2016-07-22 08:00] VITALS: BP 118/66
[2016-07-22] MEDS: THIAMINE 100 MG TAB PO SCH (08:41)
[2016-07-22] MEDS: SIMVASTATIN 20 MG TAB PO SCH (08:41)
[2016-07-22] MEDS: ASPIRIN 81 MG ENTERIC TAB PO SCH (08:41)
[2016-07-22] MEDS: APIXABAN 5 MG TAB (ELIQUIS) PO SCH ×2 (08:42→20:42)
[2016-07-22] MEDS: oxyBUTYnin *DITROPAN XL* 5 MG TABCR PO SCH (08:42)
[2016-07-22] MEDS: predniSONE 20 MG TAB PO SCH (08:42)
[2016-07-22] MEDS: FOLIC ACID 1 MG TAB PO SCH (08:42)
[2016-07-22] MEDS: DIGOXIN INJ 0.5 MG/2 ML AMP (J1160) IV SCH ×2 (10:16→16:39)
[2016-07-22 12:00] VITALS: BP 140/70
--- NOTE | 2016-07-22 12:38 | ECGEPIP ---
Stationary ECG Study [facility] Test Date: 2016-07-22 Pat Name: MERON BERRY Department: Room: [place] [address] Gender: F Information Technology Account Manager: ALPHONSO : 1945 Requested By: TARAH Shaw Order Number: [id number] Reading MD: Charity Koo Measurements Intervals [place] Rate: 109 P: -3 TN: 107 QRS: 134 QRSD: 74 T: 201 QT: 370 QTc: 500 Interpretive Statements SINUS TACHYCARDIA WITH PACS POSSIBLE MAT PVC RIGHT AXIS DEVIATION LOW QRS VOLTAGE IN EXTREMITY LEADS ST DEVIATION AND MODERATE T-WAVE ABNORMALITY, CONSIDER ANTERIOLATERAL ISCHEMIA ST ABN NOW ACROSS ANT LEADS C/W 07/21/16 INF T WAVE ABN NEW Electronically Signed On 07-22-2016 12:38:35 EDT by Charity Koo
[2016-07-22 16:00] VITALS: BP 136/62
[2016-07-22] MEDS: diltiaZEM 125 MG in NS 100 ML IV SCH (16:38)
[2016-07-22 18:22] LABS: CREATININE FOR GFR 1.19 MG/DL (0.55-1.02); GLOMERULAR FILTRATION RATE 47.5 (>39); POTASSIUM SERUM 3.9 MEQ/L (3.5-5.1)
[2016-07-22 20:00] VITALS: BP 113/68
--- NOTE | 2016-07-22 21:13 | IPN ---
DATE: 07/21/2016 The patient is seen and examined at the bedside. Chart has been reviewed. The patient continues have irregular rhythm yesterday, atrial flutter at 102 down to 74 with Cardizem by mouth every 6 hours and three doses of IV digoxin with dig level of 0.7 this morning. The patient states that her shortness of breath is improved currently on room air, 93%. Repeat x-ray yesterday shows congestive heart failure (CHF) pattern and pulmonary cephalization. Currently denies any chest pain, pressure or tightness, nausea, vomiting, diarrhea, abdominal pain, dysuria, urgency, frequency, fever, chills or cough. Denies palpitations, lightheadedness, dizziness. Input and output: Input 600, output 4.9 liters, Current weight is 69 kg from admission weight of 73.2. VITAL SIGNS: Temperature 97.2, pulse 99, respiratory rate 22, blood pressure 120/69, 92% on room air. GENERAL : Awake, alert, oriented times three. Answering questions appropriately. Mild jugular venous distention (JVD). LUNGS: Diminished. Fine crackles at the bases. HEART: S1, S2. Irregularly irregular. ABDOMEN: Soft, nontender, nondistended. EXTREMITIES: Trace pitting edema. LABORATORY DATA: 07/19/2016 complete blood count (CBC) reviewed. 07/21/2016 metabolic panel: Sodium 147, potassium 3.2, chloride 104, bicarbonate 34, BUN 21, creatinine 0.7, Microbiology: Two sets of blood cultures negative. ASSESSMENT AND PLAN: 71-year-old female with a history of chronic obstructive pulmonary disease (COPD), cor pulmonale, hypothyroidism, hyperlipidemia, hypertension, moderate mitral valve insufficiency on repeat echo in May, history of atrial flutter on chronic metoprolol and Eliquis, who presents with worsening shortness of breath and found to have congestive heart failure (CHF), most likely secondary to atrial flutter with RVR. She was found to have a heart rate of 146, currently 150s on telemetry. CURRENT ISSUES: 1. New onset congestive heart failure secondary to atrial flutter with RVR. At this time, the patient is kept on strict input, output, daily weights, fluid restriction, Lasix diuresis with good diuresis overnight. The patient is agreeable to staying until she is medically stable. Control atrial flutter with Cardizem and digoxin. 2. Paroxysmal Atrial flutter with occasional MAT. On chronic Eliquis for CVA. Currently on Cardizem. Systolic pressure dropped down below 100 and therefore the patient has beenplaced on digoxin. Dig level this morning is 0.7. Continue to titrate medications for better heart rate control. will consult cardiology if maximized on digoxin at 2.0 level and hypotension sbp<90. supplemental oxygen for MAT. 3. Anemia and thrombocytopenia. No acute indication for transfusion. No signs of active bleeding. 4. History of cor pulmonale. The patient was given IV Lasix this morning. We will monitor the patient's creatinine. 5. Electrolyte abnormalities with low potassium, supplement. 6. Hypothyroidism. 7. Splenomegaly. Outpatient followup. DISPOSITION: The patient is deemed stable for discharge. She understands that if there are acute medical issues that she will not be able to attend her son's surprise birthday democrat today. She is agreeable to staying. MINOO
[2016-07-23] VITALS: BP 104/56
[2016-07-23] MEDS ORDERED: SLF 3 ML SYR IV PRN (02:15)
[2016-07-23 04:00] VITALS: BP 120/58
[2016-07-23] MEDS: LEVALBUTEROL 1.25 MG/0.5 ML CONCENTRATE NEB INH SCH ×6 (04:00→19:25)
[2016-07-23] MEDS: LEVOTHYROXINE 0.1 MG TAB (100 MCG) PO SCH (05:20)
[2016-07-23] MEDS: SLF 3 ML SYR IV SCH ×3 (05:21→20:38)
[2016-07-23 06:03] LABS: ANION GAP 8 MEQ/L (8-16); BLOOD UREA NITROGEN 26 MG/DL (7-18); CALCIUM LEVEL 7.3 MG/DL (8.8-10.2); CARBON DIOXIDE LEVEL 31 MEQ/L (21-32); CHLORIDE LEVEL 109 MEQ/L (98-107); CREATININE FOR GFR 0.86 MG/DL (0.55-1.02); DIGOXIN LEVEL 1.3 NG/ML (0.5-2.0); GLOMERULAR FILTRATION RATE > 60.0 (>39); GLUCOSE, FASTING 141 MG/DL (83-110); POTASSIUM SERUM 3.7 MEQ/L (3.5-5.1); SODIUM LEVEL 148 MEQ/L (136-145)
[2016-07-23] MEDS: TIOTROPIUM INHALER/CAPSULE (SPIRIVA) INH SCH (07:55)
[2016-07-23 08:00] VITALS: BP 132/69
[2016-07-23] MEDS: ASPIRIN 81 MG ENTERIC TAB PO SCH (09:30)
[2016-07-23] MEDS: THIAMINE 100 MG TAB PO SCH (09:30)
[2016-07-23] MEDS: APIXABAN 5 MG TAB (ELIQUIS) PO SCH ×2 (09:30→20:37)
[2016-07-23] MEDS: FOLIC ACID 1 MG TAB PO SCH (09:30)
[2016-07-23] MEDS: oxyBUTYnin *DITROPAN XL* 5 MG TABCR PO SCH (09:30)
[2016-07-23] MEDS: predniSONE 20 MG TAB PO SCH (09:30)
[2016-07-23] MEDS: SIMVASTATIN 20 MG TAB PO SCH (09:31)
--- NOTE | 2016-07-23 10:48 | IPN ---
DATE OF VISIT: 07/22/2016 This morning the patient has no complaints of shortness of breath, chest pain, pressure, tightness. Overnight the patient continued severe to have irregular rhythm, ventricular rate of 120s-140s and then back down to 60. She has been saturating well on room air 92-95%. Intake and output has been 1.2 liters and 1.5. Current sodium level is 148, creatinine is normal. VITAL SIGNS: Temperature 97,pulse 63, respiratory rate 18, blood pressure 106/55, 95% on room air. GENERAL: Awake, alert and oriented to person, place and time. Answering questions appropriately. HEENT/NECK: Anicteric sclerae. Pupils are round and reactive. There is no jaundice. Improved jugular venous distention, mild. No thyromegaly. Dry mucous membranes. LUNGS: Clear to auscultation, wheezing, rales or rhonchi. HEART: S1, S2. Irregularly irregular. ABDOMEN: Soft, nontender, nondistended, positive bowel sounds. EXTREMITIES: No pitting edema. LABORATORY DATA: Sodium 148, potassium 3.9, chloride 108, bicarbonate 32, BUN 23, creatinine 1.02, glucose 134. MICROBIOLOGY: Two sets of blood cultures are negative. Chest x-ray on 07/21 no significant change. Lung mixon are unchanged with interstitial markings, cardiomegaly versus an opacity in the right lower lung field with pulmonary vascular distribution status quo. No change in the osseous muscles. ASSESSMENT AND PLAN: This is a 71-year-old female with history of chronic pulmonary obstructive disease (COPD), cor pulmonale, hypothyroidism, hyperlipidemia, hypertension, mitral valve insufficiency. Echocardiogram on June 11, 2016 showing ejection fraction (EF) of 60-65%, normal systolic function. Trace mitral regurgitation, mild to moderate tricuspid regurgitation and mild pulmonary hypertension presents to the emergency room with worsening shortness of breath, as well as atrial fibrillation (AFib) with rapid ventricular response (RVR). Current issues are as follows: 1. Congestive heart failure with preserved systolic function, (EF) of 60-65% with mild pulmonary hypertension with mild to moderate pulmonary hypertension. The patient had been diuresed, currently hypernatremic, appears to be at her baseline dry weight; therefore, will place on low dose Lasix once the patient's sodium improves back to normal. 2. Paroxysmal atrial fibrillation/atrial flutter. On Eliquis. Currently on Cardizem drip as we have been unable to control her heart rate. She is to receive multiple doses of digoxin for rate control. If the patient continues with heart rate less than 100 will discontinue intravenous diltiazem and change back to Cardizem and dose with digoxin if blood pressure does not permit further use of Cardizem. 3. Anemia/thrombocytopenia. No acute indication for transfusion. 4. History of cor pulmonale with mild to moderate pulmonary hypertension. Supportive care. 5. History of chronic pulmonary obstructive disease (COPD). Currently on a rapid tapering of steroids, nebulizer treatments. Saturating well on room air.
[2016-07-23] MEDS: AMIODARONE 200 MG TAB (PACERONE) PO SCH ×2 (11:51→20:37)
[2016-07-23 12:00] VITALS: BP 131/69
[2016-07-23 16:00] VITALS: BP 131/57
[2016-07-23 18:37] LABS: ANION GAP 7 MEQ/L (8-16); BLOOD UREA NITROGEN 28 MG/DL (7-18); CALCIUM LEVEL 7.7 MG/DL (8.8-10.2); CARBON DIOXIDE LEVEL 30 MEQ/L (21-32); CHLORIDE LEVEL 109 MEQ/L (98-107); CREATININE FOR GFR 0.85 MG/DL (0.55-1.02); GLOMERULAR FILTRATION RATE > 60.0 (>39); GLUCOSE, FASTING 198 MG/DL (83-110); SODIUM LEVEL 146 MEQ/L (136-145)
[2016-07-23 21:48] VITALS: BP 126/62
[2016-07-24] VITALS (7 sets, daily range): BP systolic 113–159; BP diastolic 54–86
--- NOTE | 2016-07-24 00:45 | CR ---
DATE OF CONSULTATION: 07/23/2016 CARDIOLOGY CONSULTATION REFERRING PHYSICIAN: Dr. Vanegas INDICATION: Somewhat refractory ectopic atrial tachycardia. HISTORY: This 71-year-old mother of three grown children, retired resident of [place], is well known to my cardiology practice with smoking induced chronic obstructive pulmonary disease (COPD), with prior acute on chronic respiratory distress even requiring mechanical ventilation in the past, followed by pulmonary medicine (Dr. Christian). Has also been known to have ischemic and hypertensive heart disease complicated by abnormal EKG and paroxysmal supraventricular tachyarrhythmias. Rhythm disturbances date back to at least 2011. An echocardiogram/Doppler study performed September 2011 at the time of admission for acute on chronic respiratory distress requiring mechanical ventilation showed mild concentric left ventricular hypertrophy with preserved systolic function. Left atrial enlargement with Doppler evidence of an impairment of LV diastolic function and mildly elevated mean left atrial pressure. There was also evidence of right ventricular hypertrophy with moderately severe pulmonary hypertension (PA systolic pressure of 55 mmHg close) . There was a moderate degree of mitral regurgitation without clear etiology and mild tricuspid regurgitation. She has been on combination negative chronotropic therapy and oral anticoagulation. Followed by my practice, she was last seen in my office July 11, 2016, shortly after hospitalization, [facility] for sepsis due to urinary tract infection. EKG June 09, 2016 showed atrial fibrillation with somewhat rapid ventricular response. She was discharged to home on low-dose metoprolol 12.5 mg twice a day and Eliquis 5 mg twice a day. At the time of her visit, she claims to have been doing some light housework, including vacuuming, and would shop at her own pace, ultimately limited by dyspnea and fatigue. She claims not to ever had any chest discomfort or awareness of her heart action. Has had only fleeting positional lightheadedness but no fall and was free of any embolic phenomenon. Her weight was 157 pounds. Heart rate was 68 beats per minute and regular, blood pressure sitting was 134/76 and there was only plus/minus ankle pitting with neck veins reported at 2 cm above the sternal angle. EKG confirmed sinus rhythm with occasional PACs. Since that visit was feeling her usual fair self but developed fairly abrupt onset nocturnal dyspnea that did not respond to her bronchodilator and steroid use at home. Admitted July 19, 2016 with suspected congestive heart failure prompted by atrial tachyarrhythmia. fulfillment coordinator strips in the ambulance showed underlying atrial fibrillation with a ventricular response of 140 beats per minute. Admission chest x-ray showed evidence of pulmonary congestion/heart failure. She was admitted to a telemetry unit by Dr. Vanegas, hospitalist, and given metoprolol to control her heart rate, and this was subsequently switched to Cardizem IV infusion. She was also given parenteral diuretic therapy as well as prednisone and combination bronchodilator therapy with good effect. Though at times her heart rate appeared to be controlled, she would frequently have breakthrough atrial tachycardias with rates of 120-130 beats per minute. Cardiology service was requested this morning. At this point, the patient clearly does feel improved from her admission and remains unaware of her heart action. Even at the time of her admission, she denied having had chest pain. Does admit to fairly abrupt onset of her dyspnea during the night without fever, chills, change in cough or purulent sputum. Has been free of any hemoptysis. Has been compliant with her medical therapy and does not drink excessive caffeine or alcohol. Known thyroid disease post thyroidectomy, on chronic hormone replacement with normal ultrasensitive TSH values. OTHER KNOWN PAST CARDIAC DISEASE/EVENTS/TESTS: Echocardiogram September 2011, August 2014 and May 2016 all showing evidence of pulmonary heart disease and at least moderate pulmonary hypertension. Despite multiple coronary risk factors and an abnormal EKG (LPHB and RBBB), the patient has refused to undergo stress testing to define her coronary prognosis. CORONARY RISK FACTORS: Advanced age. Chronic hypertension, hypercholesterolemia, former smoker (30 years up to one pack per day, quit 2005) . No history of diabetes, symptomatic carotid vascular disease or family history of premature coronary heart disease. OTHER SIGNIFICANT PAST MEDICAL HISTORY/SURGERY: Tonsillectomy and adenoidectomy 1949, thyroidectomy 2002 with subsequent hormone replacement, colonoscopy 2009, appendectomy April 2013. Vitamin D deficiency. SYSTEMS REVIEW: Claims her weight has been relatively stable, though according to the electronic medical record, it is actually slightly less than the past. Denies fever, chills or night sweats. Wears corrective lenses. No hearing problems. Respiratory system as mentioned above. Takes her Spiriva and Pulmicort medication on a regular basis with Ventolin only as needed. Recently given a course of prednisone for gout. No gastrointestinal (GI) bleeding. No recent dyspepsia or change in appetite. Nocturia twice nightly is chronic. Prior history of urinary tract infections but no recent dysuria or hematuria. History of arthralgia and occasional myalgia. No rashes, lumps or bumps. No lateralizing neurological deficit or headache. Bleeding tendency with her anticoagulation. Hair loss related to her hypothyroidism. All other systems review is negative. MEDICATIONS: At home she has been taking metoprolol 12.5 mg twice a day, Eliquis 5 mg twice a day, aspirin 81 mg daily, simvastatin 20 mg daily, ferrous sulfate 325 mg twice a day, magnesium 64 mg one tablet twice a day, levothyroxine 112 mcg daily, Spiriva inhaler once daily, Pulmicort inhaler 180 mcg one puff twice a day, prednisone on a tapering dosage, multivitamin one tablet daily, Ventolin two puffs every 4 hours as needed for dyspnea, oxybutynin 10 mg daily for overactive bladder, folic acid 1 mg daily, vitamin B1 100 mg daily. ALLERGIES: SULFA (hives), TETRACYCLINE (tongue swelling), MICROBID (nausea, vomiting), AMBIEN (respiratory arrest). ADVANCE DIRECTIVES: Has none. PHYSICAL EXAMINATION: Constitutional: Pleasant elderly lady currently lying fairly comfortably flat. No pallor or icterus. Very thin scalp hair. Vital signs: Heart rate ranging from 74 beats per minute up to 140 beats per minute during examination. Supine blood pressure 132/60 and 138/64 sitting with legs dependent, respiratory rate 18 per minute, oxygen saturation 95% on room air. Afebrile. Weight 155 pounds, height 65 inches, body mass index (BMI) 25.8. Eyes: No pallor or icterus. No xanthelasma. Has subtle senile arcus. ENT/mouth: She has a few remaining teeth. Normal oral moisture. No central cyanosis. Neck: Trachea midline. Well-healed thyroidectomy scar. Jugular veins currently appeared 3 cm above the sternal angle. Respiratory: Increased anteroposterior chest diameter with reduced chest excursion. Has fair air entry with bibasilar inspiratory rales up one-third. Obvious prolongation of expiration but no current audible wheeze. Cardiovascular: Apical impulse just lateral to the midclavicular line fifth costal space. S1 and S2 somewhat variable related to her rhythm findings. Has a variable S4 gallop. Has a soft systolic ejection murmur heard maximally along the left sternal border radiating to the right base but not well to the neck. No diastolic murmur. Normal carotid upstrokes with somewhat variable volume related to her arrhythmia. No bruits. Abdominal aorta was not palpable. No bruits. Upper extremity, femoral and pedal pulses were symmetrical and normal. There was only plus/minus distal lower leg pitting. Extremities: No clubbing, peripheral cyanosis or splinter hemorrhages. GI: Soft, nontender abdomen with no hepatosplenomegaly. Normal bowel sounds. Rectal examination not indicated. Musculoskeletal: A few degenerative deformities of her distal interphalangeal joints both hands. No other obvious joint deformity. Muscular strength and tone appear to be normal. Normal spine curvature. Neurologic/Psychiatric: Bright, alert and oriented, gave a lucid history. Eye, facial, and extremity movements were symmetrical and normal. No involuntary movements. Skin: Atrophic changes of her skin with sitting and ecchymotic lesions related to her oral anticoagulation and prednisone. INVESTIGATIONS: Chest x-rays: Reviewed independently. Her admission study July 19, 2016 shows obvious cardiomegaly even allowing for this technique with an unfolded thoracic aorta, prominent pulmonary vasculature with pulmonary venous congestion and interstitial edema along with at least a right pleural effusion. Last x-ray July 21, 2016, again a portable study, showed considerable improvement with relief of her right pleural effusion. EKGs: Serial studies reviewed since her admission July 19 misinterpreted as showing atrial fibrillation but what is documented is sinus rhythm with frequent PACs and episodic multifocal atrial tachycardia. All studies show low voltages with rightward axis. slow precordial R wave progression in keeping with her pulmonary disease. Varying ST/T wave abnormalities related to heart rate range. LABORATORY DATA: Admission complete blood count showed mild anemia, hemoglobin 10.7, which is actually up from May 2016 which was 9.9. Normal MCHC and MCV. Normal white blood cell count and slightly soft platelet count of 132. Reticulocyte count was actually somewhat high. Admission PT/INR was 16/1.3 and 34, D-dimer was normal. Admission chemistry showed mild hypokalemia with normal BUN and creatinine 17 and 0.8 normal, random glucose 109, soft serum albumin of 3.0, otherwise normal liver function studies. Ultra sensitive TSH 1.5. Serum iron was low at 23. Serum ferritin level was low normal at 29. TIBC was low at 225. Serial troponin I levels were negative. C-reactive protein was elevated at 12.4 in the past but not currently. Her admission BNP level was elevated at 595 , the highest it has measured in this hospital. Her digoxin level on admission was low at 0.7. Urinalysis showed trace hematuria but no proteinuria, negative leukocyte esterase and no pyuria. IMPRESSION/PLAN: 1. Paroxysmal supraventricular tachycardia: As often seen with patients with advanced pulmonary disease, she has potpourri atrial arrhythmias including fairly uniform ectopic atrial tachycardia, multifocal atrial tachycardia as well as atrial fibrillation. Her current medication, including diltiazem, appears to be suboptimal in being able to control her rhythm disturbance. The drug of choice for rate control related to arrhythmias of this nature is verapamil, and we will replace her diltiazem 30 mg every 6 hours with verapamil SR 120 mg twice a day, hold for heart rate less than 60. In light of the tenacity of her rhythm disturbances and risk of recurrent CHF, I have started her on amiodarone and would recommend monitoring her for at least the next 72 to 96 hours with loading 200 mg four times a day. Remains on Eliquis oral anticoagulation. 2. Abnormal EKG: Despite her multiple coronary risk factors, has been free of symptomatic myocardial ischemia. Serial troponin I levels have been negative despite variable repolarization abnormalities. Findings are chiefly related to her smoking- induced pulmonary disease. 3. Heart failure (diastolic/acute on chronic): Has had serial echocardiograms in the past as well as chest CT scans confirming a fairly normal left ventricular size with prior echo studies showing at least borderline concentric left ventricle hypertrophy with preserved systolic function. Previous studies have also shown at least borderline left atrial enlargement with LV diastolic dysfunction and even elevated mean left atrial pressures. We believe her pulmonary edema on this occasion was prompted by her atrial tachyarrhythmia and that optimal control/prevention of further tachyarrhythmia would be considered schmidt management. Presently not on diuretic therapy but still on a modest salt with 2 liters fluid restriction. 4. Pulmonary heart disease (chronic): Has EKG findings and echocardiographic as well as prior CT scan findings of a mildly dilated pulmonary trunk in keeping with chronic pulmonary hypertension. She also has right ventricle hypertrophy, moderately dilated right atrium and dilated inferior vena cava. On combination prednisone, albuterol, and Spiriva inhalers as directed by pulmonary medicine usually. She does not require supplemental oxygen. Current air entry is fine without obvious wheezing. 5. Hypertensive heart disease (benign with heart failure): Current blood pressure would be considered adequately controlled on diltiazem, but I suspect verapamil will prove to be as effective. Despite prior diuretic therapy with negative fluid balance of 6 liters, BUN has increased slightly to 28 and creatinine has remained normal at 0.85. On her current prednisone therapy, her fasting glucose has increased to 198! It may be prudent to wean this agent somewhat. 6. Mitral valve disorder (nonrheumatic)/insufficiency: Previous echocardiographic studies have shown no obvious structural valvular abnormality, yet at least mild to moderate mitral insufficiency. She is free of any symptom or sign to suggest endocarditis. Schmidt management would be optimal blood pressure control. I will plan on following her closely with you for the time being and appreciate the opportunity to participate in her care. Best Regards, Yours Sincerely, Jose Grover MD, FACC Copy To: Dr. Andrade HENNESSY
[2016-07-24] MEDS: LEVALBUTEROL 1.25 MG/0.5 ML CONCENTRATE NEB INH SCH ×6 (03:26→19:13)
[2016-07-24] MEDS: LEVOTHYROXINE 0.1 MG TAB (100 MCG) PO SCH (05:29)
[2016-07-24] MEDS: SLF 3 ML SYR IV SCH ×3 (05:30→20:51)
[2016-07-24 05:54] LABS: ANION GAP 6 MEQ/L (8-16); BLOOD UREA NITROGEN 28 MG/DL (7-18); CALCIUM LEVEL 7.4 MG/DL (8.8-10.2); CARBON DIOXIDE LEVEL 31 MEQ/L (21-32); CHLORIDE LEVEL 111 MEQ/L (98-107); CREATININE FOR GFR 0.75 MG/DL (0.55-1.02); GLOMERULAR FILTRATION RATE > 60.0 (>39); GLUCOSE, FASTING 93 MG/DL (83-110); POTASSIUM SERUM 3.8 MEQ/L (3.5-5.1); SODIUM LEVEL 148 MEQ/L (136-145)
--- NOTE | 2016-07-24 07:17 | IPN ---
DATE OF VISIT: 07/23/2016 The patient is seen and examined at the bedside. The chart has been reviewed. The patient denies any chest pain, pressure, tightness, palpitations other than near syncopal episode. The patient was on Cardizem drip, ventricular rate was 60-113. No complaint of shortness of breath. PHYSICAL EXAMINATION: VITAL SIGNS: Temperature 96.7, pulse 77 irregular, respiratory rate 20, blood pressure 131/69, 95% on room air. LUNGS: Diminished, clear to auscultation. HEART: S1, S2, irregularly, irregular. ABDOMEN: Soft, nontender, nondistended. EXTREMITIES: No pitting edema. LABORATORY DATA: Sodium 148, potassium 3.7, chloride 109, bicarbonate 31, BUN 26 , creatinine 0.86, glucose 141. ASSESSMENT AND PLAN: This is a 71-year-old female with history of chronic pulmonary obstructive disease (COPD), cor pulmonale, hypothyroidism, hyperlipidemia, hypertension, mitral valve insufficiency, echocardiogram with ejection fraction (EF) 60-65%, trace mitral regurgitation (MR), mild to moderate tricuspid regurgitation (TR), mild pulmonary hypertension presents to the emergency room (ER) with worsening shortness of breath, found to have atrial fibrillation with rapid ventricular response, ventricular rate of 146 which was paroxysmal. CURRENT ISSUES: 1. Congestive heart failure (CHF) with preserved ejection fraction, EF 60-65%, cor pulmonale with mild to moderate pulmonary hypertension. The patient has been diuresed, is currently hypernatremic. Lasix has been discontinued. Will place on low dose Lasix unless the patient's sodium level is improved. Will defer to Dr. Grover who is consulted. 2. Paroxysmal atrial fibrillation, multifocal atrial tachycardia. Currently on Eliquis. The patient has received Cardizem drip with some improvement, as well as multiple doses of digoxin. At this time the patient will be changed back to oral digoxin. Dr. Grover has been consulted. 3. History of cor pulmonale with mild to moderate pulmonary hypertension. Supportive care. 4. History of chronic pulmonary obstructive disease (COPD). Rapid taper of steroids. MTDD
[2016-07-24] MEDS: TIOTROPIUM INHALER/CAPSULE (SPIRIVA) INH SCH (07:22)
[2016-07-24] MEDS: SIMVASTATIN 20 MG TAB PO SCH (08:37)
[2016-07-24] MEDS: VERAPAMIL 120 MG SR TAB PO SCH ×2 (08:37→20:51)
[2016-07-24] MEDS: THIAMINE 100 MG TAB PO SCH (08:37)
[2016-07-24] MEDS: AMIODARONE 200 MG TAB (PACERONE) PO SCH ×4 (08:38→20:51)
[2016-07-24] MEDS: FOLIC ACID 1 MG TAB PO SCH (08:38)
[2016-07-24] MEDS: predniSONE 20 MG TAB PO SCH (08:38)
[2016-07-24] MEDS: ASPIRIN 81 MG ENTERIC TAB PO SCH (08:38)
[2016-07-24] MEDS: APIXABAN 5 MG TAB (ELIQUIS) PO SCH ×2 (08:38→20:51)
[2016-07-24] MEDS: oxyBUTYnin *DITROPAN XL* 5 MG TABCR PO SCH (08:38)
--- NOTE | 2016-07-24 10:38 | IPNPDOC ---
Text Note Date of Service The patient was seen on 07/24/16. NOTE Cardiology Progress Note Subjective: Patient is a 71-year-old female with paroxysmal supraventricular tachycardia seen for cardiology follow-up. On cardiac monitoring patient had episode of sinus rhythm with PVCs, episode of sinus bradycardia this morning. The patient reports that she is feeling fine today. She has not had any episodes of chest pain or palpitations, reports that she never feels the PVCs. She denies any fevers, chills, sweats, shortness of breath, difficulty breathing or lower extremity swelling Objective: Vital signs: Temperature 96.9, pulse 81, compliance monitor reveals irregular sinus rhythm with tachycardic episodes, respiratory rate 18, blood pressure 133/ 86, pulse ox 98% on room air Gen.: Patient awake, alert and oriented, verbal and able to answer questions appropriately. Patient does not appear to be in any acute distress Neck: no JVD Heart: Irregular heart rate and rhythm. Normal S1-S2. Unable to appreciate any murmurs, rubs, clicks or gallops Lungs: Clear to auscultation bilaterally. No wheezes, rales or rhonchi Extremities: No swelling in either lower extremity Laboratory data: BMP: Sodium 148, potassium 3.8, chloride 111, carbon dioxide 31, BUN 28, creatinine 0.75, glucose 93 Microbiology: Blood culture 2 no growth after 5 days Urine culture specimen appears contaminated Assessment: Patient is a 71-year-old female with paroxysmal sinus ventricular tachycardia, started on verapamil and amiodarone yesterday. Plan: #1: Paroxysmal supraventricular tachycardia: Patient with continued asymptomatic episodes. Patient will continue on amiodarone 200 mg by mouth 4 times a day 4 days, verapamil 120 mg by mouth twice a day #2: Abnormal EKG: Negative cardiac markers, most likely secondary to smoking- induced pulmonary disease #3: Acute on chronic diastolic congestive heart failure: Patient will continue on low-salt diet, 2 L fluid restriction #4: Chronic pulmonary heart disease: Stable, lungs clear to auscultation on physical exam. Patient will continue on prednisone, albuterol, Spiriva #5: Hypertensive heart disease with heart failure: Stable, creatinine decreased from 0.85 yesterday to 0.75 today, a.m. glucose today of 93. #6: Nonrheumatic mitral valve insufficiency: Stable, unable to appreciate murmur on physical examination My preceptor for this patient encounter was physically present in the building during the encounter and was fully available. As needed, all aspects of the patient interview, examination, medical decision making process, and medical care plan development were reviewed and approved by the preceptor. Preceptor is aware and concurs with the plan as stated in the body of this note and will attest to such by his/her cosignature Carmen IBARRA, I+O VSCarmen, I+O Laboratory Tests 07/23/16 17:47 Calcium Level 7.7 L 07/24/16 05:22 Calcium Level 7.4 L Vital Signs Date Time Temp Pulse Resp B/P Pulse Ox O2 Delivery O2 Flow Rate FiO2 07/24/16 08:42 81 133/86 07/24/16 08:00 96.9 18 98 Room Air 07/23/16 19:27 2.0 I&O- Last 24 Hours up to 6 AM 07/24/16 06:00 Intake Total 960 ml Output Total 675 ml Balance 285 ml LUCI JOHNSON DO Jul 24, 2016 10:38
--- NOTE | 2016-07-24 13:19 | IPN ---
DATE: 07/24/2016 SUBJECTIVE: The patient seen and examined in the room today. The patient is sitting comfortably near the bedside without any acute complaint. Denies any chest pain or palpitations at this moment. Denied any difficulty breathing. No overnight events reported. OBJECTIVE: Vital Signs: Temperature 96.9, pulse 76, respirations 18, blood pressure 159/75, pulse oximetry 98% in room air. General: No signs of acute distress. Alert and oriented times three. Normocephalic, atraumatic. Extraocular movements grossly intact. Cardiovascular: Irregularly irregular. Positive S1, S2. Lungs: Clear to auscultation bilaterally. No wheezes or rhonchi. Abdomen: Soft. Nontender. Nondistended. Bowel sounds present. Extremities: Multiple bruises mainly on bilateral upper extremities. No lower extremity edema. No cyanosis. LABORATORY DATA: Sodium 148, potassium 3.8, chloride 111, carbon dioxide 31, BUN 28, creatinine 0.75, GFR greater than 60, fasting glucose 93, calcium 7.4. MICROBIOLOGY: Urine culture appeared contaminated. Blood cultures negative after five days. ASSESSMENT AND PLAN: 1. Paroxysmal supraventricular tachycardia. Cardiology, Dr. Grover, has been consulted. The patient will be on amiodarone and Verapamil. The patient is on Eliquis. 2. Acute on chronic diastolic congestive heart failure. Continue low salt diet. Continue fluid restriction. 3. History of cor pulmonale with mild to moderate pulmonary hypertension. 4. History of COPD. Patient is on tapering dose of steroids. 5. Hypothyroidism. On Synthroid. 6. Deep vein thrombosis (DVT) prophylaxis. Patient is on Eliquis. MINOO
--- NOTE | 2016-07-24 14:32 | IPN ---
DATE: 07/24/2016 CARDIOLOGY PROGRESS NOTE SUBJECTIVE: Her respirations have remained improved. Has been up in the room walking without problems. Appears to tolerate her verapamil and amiodarone without dizziness. OBJECTIVE: Pleasant, slightly barrel-chested elderly lady of medium body build laying comfortably. Heart rate 68 beats per minute and regular with occasional irregularity. Blood pressure 120/60, respiratory rate 18 with oxygen saturation 93% on room air. Afebrile. Off diuretic therapy and essentially an even input and output yesterday. Curiously, her weight has increased slightly from yesterday and the day before. Has no inspiratory rales on examination but slight prolongation of expiration with end-expiratory wheeze. Neck veins appear to be approximately 4 cm above the sternal angle. Has slightly more pitting edema in both lower legs today from yesterday. REGULATORY AFFAIRS STRATEGY SPECIALIST: With the introduction of verapamil and amiodarone, she has been free of recurrent ectopic atrial tachyarrhythmia or atrial fibrillation. Somewhat slow rate during the night down to 49 beats per minute, but today has been free of any significant bradyarrhythmia. IMPRESSION AND PLAN: 1. Paroxysmal supraventricular tachycardia: Appears to have responded well to combination verapamil and amiodarone, but recommend we continue to monitor her for the next 3-4 days, especially in light of her somewhat soft, nocturnal heart rates. Remains on Eliquis oral anticoagulation without complication. 2. Abnormal EKG: With her ambulation on the kiser has been free of symptomatic myocardial ischemia. 3. Heart failure (diastolic/acute on chronic): Despite her freedom from recurrent dyspnea and fairly clear sounding chest, neck veins appear to be slightly increased. Her weight has slightly increased and she has more dependent edema. I believe she may require at least low-dose diuretic therapy. I have not started this today but will reevaluate this tomorrow. 4. Pulmonary heart disease, chronic phenomenon. Subtle signs of right heart failure developing since she has been off diuretic therapy. Oxygen saturation remains fine on room air. Chest auscultation at this time is remarkably benign. 5. Hypertensive heart disease (benign with heart failure): Current blood pressure is adequately controlled on verapamil therapy alone. She did receive a single dose this morning. 6. Mitral valve disorder (nonrheumatic): Has no exculpatory change today and remains free of symptom or sign of endocarditis. As mentioned, with her amiodarone loading it would be prudent to watch her on telemetry as she ambulates at least for the next 3-4 days. MINOO
[2016-07-25] VITALS (9 sets, daily range): BP systolic 100–138; BP diastolic 52–82; O2SAT 94
[2016-07-25] MEDS: LEVALBUTEROL 1.25 MG/0.5 ML CONCENTRATE NEB INH SCH ×7 (03:39→23:23)
[2016-07-25] MEDS: LEVOTHYROXINE 0.1 MG TAB (100 MCG) PO SCH (05:09)
[2016-07-25] MEDS: SLF 3 ML SYR IV SCH ×3 (05:09→20:16)
[2016-07-25] MEDS: TIOTROPIUM INHALER/CAPSULE (SPIRIVA) INH SCH (07:15)
[2016-07-25] MEDS ORDERED: predniSONE 10 MG TAB PO SCH (09:00)
[2016-07-25] MEDS: APIXABAN 5 MG TAB (ELIQUIS) PO SCH ×2 (09:27→20:16)
[2016-07-25] MEDS: ASPIRIN 81 MG ENTERIC TAB PO SCH (09:28)
[2016-07-25] MEDS: oxyBUTYnin *DITROPAN XL* 5 MG TABCR PO SCH (09:28)
[2016-07-25] MEDS: FOLIC ACID 1 MG TAB PO SCH (09:28)
[2016-07-25] MEDS: THIAMINE 100 MG TAB PO SCH (09:28)
[2016-07-25] MEDS: AMIODARONE 200 MG TAB (PACERONE) PO SCH ×4 (09:28→20:16)
[2016-07-25] MEDS: VERAPAMIL 120 MG SR TAB PO SCH ×2 (09:29→20:16)
[2016-07-25] MEDS: SIMVASTATIN 20 MG TAB PO SCH (09:29)
[2016-07-25] MEDS: FLUTICASONE PROP 0.05% NASAL SPRAY 16 GM (FLONASE) SCH (14:01)
--- NOTE | 2016-07-25 14:55 | IPN ---
DATE: 07/25/2016 SUBJECTIVE: Patient is seen and examined in the room today. Patient stated she does not have acute complaints. Denied any chest pain, palpitations, or shortness of breath. Patient has a very good appetite. No overnight events reported. OBJECTIVE: VITAL SIGNS: Temperature 97.2, pulse 87, respirations 19, blood pressure 129/82 , pulse oximetry 97% in room air. GENERAL: No sign of acute distress, alert and oriented times three. HEENT: Normocephalic, atraumatic. Extraocular motors grossly intact. CARDIOVASCULAR: Positive S1, S2, irregularly irregular. LUNGS: Clear to auscultation bilaterally. ABDOMEN: Soft, nontender, nondistended, bowel sounds present. EXTREMITIES: Trace bilateral lower extremity edema. No sign of cyanosis. ASSESSMENT AND PLAN: 1. Paroxysmal supraventricular tachycardia. Fleet Sales Associate, Dr. Grover, has been consulted. Patient's medication is being actively adjusted. Patient is on Eliquis. 2. Acute on chronic diastolic congestive heart failure. Continue fluid restriction. Currently patient is compensated, no sign of fluid overload. 3. History of cor pulmonale with mild to moderate pulmonary hypertension. 4. COPD: Patient is on tapering dose of steroids. 4. Hypothyroidism, on Synthroid. 5. Deep vein thrombosis (DVT) prophylaxis. Patient is on Eliquis. MTDD
--- NOTE | 2016-07-26 03:23 | IPN ---
CARDIOLOGY PROGRESS NOTE DATE: 07/25/2016 SUBJECTIVE: Has been ambulating down the chicas without significant problem at her own pace. Dyspnea has returned to its chronic level. No chest pain, palpitations or dizziness with her current medications. Appears to be tolerating these agents without adverse effect. OBJECTIVE: Pleasant, slightly barrel-chested elderly lady of medium body build laying comfortably flat. Heart rate 72 beats per minute and regular, blood pressure 120/64, respiratory rate 18 with O2 saturation 97% on room air. Afebrile with stable weight. Neck veins did not appear to be higher than yesterday with no more dependent edema than yesterday. Still has prolongation of expiration and end-expiratory wheezes with only subtle bibasilar inspiratory rales. FIELD SUPPORT REP: This has shown sustained sinus mechanism without significant bradyarrhythmia on her current combination verapamil and amiodarone. No recurrent pause as we saw on July 24, 2016, early in the morning. LABORATORY DATA: No followup blood work was obtained today. IMPRESSION/PLAN: 1. Paroxysmal supraventricular tachycardia: Appears to be tolerating her loading of amiodarone without adverse effect. I would appreciate monitoring her until at least Saturday, July 27 and that point I will plan on reducing her amiodarone 200 mg twice a day at the time of her discharge. She has been tolerating and receiving her verapamil 240 mg by mouth twice a day without problem. Continues on Eliquis without complication. 2. Abnormal EKG: Continues to ambulate without symptoms to suggest myocardial ischemia. We intend to obtain a followup EKG tomorrow morning. 3. Heart failure (diastolic/acute on chronic): The clinical examination does not sound significantly changed from yesterday. I have still not introduced diuretic. Will obtain a followup PA and left lateral chest x-ray tomorrow to verify freedom from worsening congestion. 4. Pulmonary heart disease (chronic): Subtle signs of right heart failure as mentioned, but unchanged. Remains on room air with good O2 saturations. Continues on weaning prednisone and bronchodilators. 5. Hypertensive heart disease (benign with heart failure): Blood pressure remains adequately controlled on her verapamil alone. Will hold off diuretic therapy at this time pending her chest x-ray. We will obtain followup chemistry tomorrow. 6. Mitral valve disorder (non-rheumatic): Auscultatory findings. No symptoms or signs of endocarditis. I will continue to follow her with you and appreciate the opportunity to participate in her care. MINOO
[2016-07-26] MEDS: LEVALBUTEROL 1.25 MG/0.5 ML CONCENTRATE NEB INH SCH ×6 (03:46→23:36)
[2016-07-26 04:00] VITALS: BP 145/65
[2016-07-26] MEDS: LEVOTHYROXINE 0.1 MG TAB (100 MCG) PO SCH (05:05)
[2016-07-26] MEDS: FLUTICASONE PROP 0.05% NASAL SPRAY 16 GM (FLONASE) SCH (05:06)
[2016-07-26] MEDS: SLF 3 ML SYR IV SCH ×3 (05:06→20:33)
[2016-07-26 06:05] LABS: MEAN CORPUSCULAR HEMOGLOBIN 28.4 pg (27.0-33.0); MEAN CORPUSCULAR HGB CONC 30.7 g/dl (32.0-36.5); MEAN CORPUSCULAR VOLUME 92.3 fl (80.0-96.0); RED CELL DISTRIBUTION WIDTH 13.4 % (11.5-14.5); WHITE BLOOD COUNT 7.1 K/mm3 (4.0-10.0)
[2016-07-26 06:11] LABS: ALBUMIN 2.8 GM/DL (3.2-5.2); ALBUMIN/GLOBULIN RATIO 1.12 (1.00-1.93); ALKALINE PHOSPHATASE 42 U/L (45-117); ALT/SGPT 7 U/L (12-78); ANION GAP 8 MEQ/L (8-16); AST/SGOT 3 U/L (15-37); BILIRUBIN,TOTAL 0.7 MG/DL (0.2-1.0); BLOOD UREA NITROGEN 24 MG/DL (7-18); CALCIUM LEVEL 7.9 MG/DL (8.8-10.2); CARBON DIOXIDE LEVEL 28 MEQ/L (21-32); CHLORIDE LEVEL 110 MEQ/L (98-107); CREATININE FOR GFR 0.79 MG/DL (0.55-1.02); GLOMERULAR FILTRATION RATE > 60.0 (>39); GLUCOSE, FASTING 76 MG/DL (83-110); POTASSIUM SERUM 3.7 MEQ/L (3.5-5.1); SODIUM LEVEL 146 MEQ/L (136-145); TOTAL PROTEIN 5.3 GM/DL (6.4-8.2)
[2016-07-26] MEDS: TIOTROPIUM INHALER/CAPSULE (SPIRIVA) INH SCH (07:10)
[2016-07-26 07:25] VITALS: BP 124/68
[2016-07-26] MEDS ORDERED: predniSONE 5 MG TAB PO SCH (09:00)
[2016-07-26] MEDS: APIXABAN 5 MG TAB (ELIQUIS) PO SCH (09:00)
--- NOTE | 2016-07-26 09:27 | REP ---
Portable chest, 08:21 a.m., 07/26/2016: Comparisons are 07/21/2016 and 11/05/2015. Cardiomegaly and pulmonary vascular redistribution are identified and are unchanged from 11/05/2015 and 07/21/2016, possibly chronic. The focal zone of increased density inferiorly in the right lung noted on the 07/21/2016 is no longer present. No pleural effusions are identified. Giuliana and mediastinum are unremarkable. There is thoracic scoliosis convex right at the thoracolumbar junction, unchanged. Impression: Cardiomegaly and pulmonary vascular redistribution, possibly chronic. The focal zone of increased density identified inferiorly in the right lung on 07/21/2016 has resolved. Signed by Deshawn Mosley MD 07/26/2016 09:19 A
[2016-07-26] MEDS: VERAPAMIL 120 MG SR TAB PO SCH ×2 (09:38→20:32)
[2016-07-26] MEDS: AMIODARONE 200 MG TAB (PACERONE) PO SCH ×4 (09:38→20:33)
[2016-07-26] MEDS: THIAMINE 100 MG TAB PO SCH (09:38)
[2016-07-26] MEDS: FOLIC ACID 1 MG TAB PO SCH (09:38)
[2016-07-26] MEDS: oxyBUTYnin *DITROPAN XL* 5 MG TABCR PO SCH (09:38)
[2016-07-26] MEDS: SIMVASTATIN 20 MG TAB PO SCH (09:38)
--- NOTE | 2016-07-26 11:21 | IPNPDOC ---
Text Note Date of Service The patient was seen on 07/26/16. NOTE Cardiology Progress Note Subjective: Patient is a 71-year-old female with paroxysmal supraventricular tachycardia seen for a cardiology follow-up. Patient complaining of a slight upper respiratory infection today but does not have any cardiac complaints today. She denies any chest pain, pressure, shortness of breath, difficulty breathing, fevers, chills, sweats, lower extremity swelling Objective: Vital signs: Temperature 97.6, pulse 71, respiratory rate 20, blood pressure 124 /68, pulse ox 96% on room air Input and output for yesterday: Input 1520 mL, output 600 mL, balance +920 mL Gen.: Patient awake, alert and oriented, verbal and able to answer questions appropriately. Patient does not appear to be in any acute distress Neck: no JVD Heart: Regular rate and rhythm, normal S1-S2. No murmurs, rubs, clicks or gallops Lungs: Clear to auscultation bilaterally. No wheezes, rales or rhonchi Extremities: Bilateral lower extremity pitting to mid navarro front office director: Normal sinus rhythm on telemetry, no events overnight EKG: Normal sinus rhythm at rate of 74 bpm, unchanged from previous EKG on 07/22/16 Laboratory data: CBC: White blood cells 7.1, hemoglobin and hematocrit 9.6/31.3, platelets 82 Chemistry: Sodium 146, potassium 3.7, chloride 110,, carbon dioxide 28, BUN 24, creatinine 0.79, glucose 76, calcium 7.9 Liver profile: AST 3, ALT 7, alkaline phosphatase 42, total protein 5.3, albumin 2.8, total bilirubin 0.7 Imaging: Chest x-ray: Cardiomegaly and pulmonary vascular redistribution, possibly chronic. Focal zone of increased density identified in right lung on 07/21/16 has resolved Assessment: Patient is a 71-year-old female with paroxysmal supraventricular tachycardia, currently on amiodarone. Patient remains in sinus rhythm. Plan: #1: Paroxysmal supraventricular tachycardia: Patient remains in sinus rhythm. She is tolerating amiodarone. Patient will continue today on amiodarone 200 mg by mouth 4 times a day, then tomorrow be transitioned to amiodarone 200 mg by mouth twice a day. She will continue on her current dose of verapamil, Eliquis #2: Abnormal EKG: Repeat EKG was performed this morning. EKG showed sinus rhythm at rate of 74 bpm, unchanged from previous EKG on 07/22/16. #3: Acute on chronic diastolic heart failure: Patient today is showing some signs of fluid overload, bilateral lower extremity pitting edema. Patient will be started on 20 mg of IV Lasix daily, 12.5 mg of oral spironolactone daily, we will monitor with daily renal profile #4: Chronic pulmonary heart disease: Stable, patient not complaining of any trouble breathing #5: Hypertensive heart disease with heart failure: Patient's blood pressure remains well-controlled on current dose of verapamil, continue verapamil. Chest x-ray today showed improvement of right lung density, no infiltrate or effusion #6: Mitral valve disorder: Stable, no signs or symptoms of endocarditis My preceptor for this patient encounter was physically present in the building during the encounter and was fully available. As needed, all aspects of the patient interview, examination, medical decision making process, and medical care plan development were reviewed and approved by the preceptor. Preceptor is aware and concurs with the plan as stated in the body of this note and will attest to such by his/her cosignature VS,Carmen, I+O VS, Carmen, I+O Laboratory Tests 07/26/16 05:37 Calcium Level 7.9 L, Aspartate Amino Transf (AST/SGOT) 3 L, Alanine Aminotransferase (ALT/SGPT) 7 L, Alkaline Phosphatase 42 L, Total Bilirubin 0.7 , Total Protein 5.3 L, Albumin 2.8 L, Red Blood Count 3.39 L, Mean Corpuscular Volume 92.3, Mean Corpuscular Hemoglobin 28.4, Mean Corpuscular Hemoglobin Concent 30.7 L, Red Cell Distribution Width 13.4 Vital Signs Date Time Temp Pulse Resp B/P Pulse Ox O2 Delivery O2 Flow Rate FiO2 07/26/16 09:38 71 124/68 07/26/16 09:10 Room Air 07/26/16 07:25 97.6 20 96 07/23/16 19:27 2.0 I&O- Last 24 Hours up to 6 AM 07/26/16 06:00 Intake Total 1520 ml Output Total 900 ml Balance 620 ml LUCI JOHNSON DO Jul 26, 2016 11:21
[2016-07-26 11:30] VITALS: BP 116/61
[2016-07-26 16:00] VITALS: BP 117/63
--- NOTE | 2016-07-26 17:26 | IPN ---
DATE OF VISIT: 07/26/2016 SUBJECTIVE: The patient is seen and examined in the room today. The patient denies any chest pain or shortness of breath. Denies any palpitations. The patient still complains about nasal congestion with sinus fullness. The patient feels she is getting a cold. No fever, no chills. OBJECTIVE: VITAL SIGNS: Temperature is 97.6, pulse is 71, respirations 20, blood pressure is 124/68. Pulse oximetry is 96% on room air. GENERAL: No signs of acute distress, alert and oriented times three. HEENT: Normocephalic, atraumatic. Extraocular movement grossly intact. CARDIOVASCULAR: Positive S1, S2. Regular rate. LUNGS: Clear to auscultation bilaterally. ABDOMEN: Soft, nontender, nondistended. Bowel sounds are present. No rebound, no guarding. EXTREMITIES: No edema. No sign of cyanosis. LABORATORY DATA: White blood count (WBC) is 7.1, hemoglobin 9.6, hematocrit is 31.3, platelet count is 82. Sodium is 146, potassium 3.7, chloride is 110, carbon dioxide 28, BUN 24, creatine is 0.76. Glomerular filtration rate (GFR) is less than 60, fasting glucose is 76, calcium is 7.9. Total bilirubin is 0.7, AST 3, ALT 7, alkaline phosphatase 42, total protein is 5.3, albumin 2.8. ASSESSMENT AND PLAN: 1. Paroxysmal supraventricular tachycardia, steel die printer, Dr. Alvarado, has been consulted. The patient's amiodarone has been adjusted. 2. Thrombocytopenia. Currently, will hold the patient's aspirin for now. 3. Acute on chronic diastolic congestive heart failure. Continue fluid restriction. No sign of overload at this moment. 4. History of Cor pulmonale with mild to moderate pulmonary hypertension. 5. History of chronic obstructive pulmonary disease (COPD). The patient is on tapering dose of steroids. 6. Deep vein thrombosis (DVT) prophylaxis. The patient will be on JAUN, sequential compression device.
[2016-07-26] MEDS ORDERED: FUROSEMIDE 40 MG/4 ML VIAL (J1940) IV ONE (17:30)
[2016-07-26] MEDS: POTASSIUM CHLORIDE 10 MEQ SR TABLET PO SCH ×2 (17:46→20:33)
--- NOTE | 2016-07-26 18:11 | IPN ---
DATE: 07/26/2016 CARDIOLOGY PROGRESS NOTE SUBJECTIVE: Has been up in the room and claims not to have been dizzy or aware of any palpitations. Has developed a cough productive of sputum, but she is unaware of the color. Denies any actual fever or chills. OBJECTIVE: Pleasant, slightly barrel-chested, elderly lady of medium body build, appeared to be recently comfortable lying with the head of bed elevated 30 degrees. Has a somewhat raspy cough at this point. Heart rate 74 beats per minute (BPM) and regular with occasional irregularity. Blood pressure 120/60 supine, 130/60 sitting with legs bent, respiratory rate 20 per minute, oxygen saturation 96% on room air. Weight today is unchanged at 158 pounds. Neck vein elevation appears to be approximately 5-6 cm above the sternal angle. Has bibasilar inspiratory rales with expiratory wheezes. Dependent edema involving both lower legs, 1 mm at least two-thirds up both lower legs. CHEST X-RAY: Posterior-anterior (PA) and left lateral study performed earlier today still shows obvious cardiomegaly with pulmonary venous congestion and increased interstitial markings. Lateral study shows slight pleural effusion. Comparing this examination with the portable upright study performed on her admission, today's study does show an improvement, but she still has pulmonary venous hypertension. BIRD CAGE ASSEMBLER: This has been showing primarily sinus rhythm with occasional premature atrial contraction (PAC) but no recurrent paroxysmal supraventricular tachycardia (PSVT). LABORATORY DATA: Blood work today showed a hemoglobin of 9.6 with normal white blood cell count. Platelet count has dropped to 82,000 from 132,000 on admission. Electrolytes today were in balance with potassium having dropped to 3.7. BUN, creatinine were stable at 24 and 0.8, BUN 2.8 with a fasting glucose 76. IMPRESSION/PLAN: 1. Heart failure (diastolic/acute on chronic): Appears to have developed new productive cough and fever and more signs of congestion than yesterday, confirmed by chest x-ray. I have ordered Lasix 40 mg intravenous (IV) with supplemental potassium and have ordered by mouth Lasix 20 mg with spirolactone 12.5 mg daily. The patient is eager to be discharged home, but I believe it would be prudent to monitor her for at least an additional 24-48 hours with the change in her symptoms. 2. Paroxysmal supraventricular tachycardia: Continues to tolerate her amiodarone without apparent adverse effect. Our plan is to reduce her dose to 200 mg twice a day starting tomorrow. Continues to tolerate her verapamil but has remained off Eliquis. Curiously, her platelet count has dropped as mentioned above. No manifest bleeding at this time. She has a followup complete blood count tomorrow. 3. Abnormal EKG: Continues to ambulate without symptom to suggest myocardial ischemia. Currently remains on protective verapamil and simvastatin. Aspirin antiplatelet therapy has been placed on hold. 4. Pulmonary heart disease (chronic): As mentioned, has more signs of congestion today, yet oxygen saturation remains fine on room air. Xopenex regularly, nebulizer therapy, and has an as-needed Proventil inhaler that she has not been using. On tapering doses of prednisone. Remains on Spiriva as well. 5. Hypertensive heart disease (benign with heart failure): Current blood pressure would be considered adequately controlled with verapamil. Diuretic has been added as mentioned. 6. Mitral valve disorder (nonrheumatic): No auscultatory changes. No symptoms or signs of endocarditis. As mentioned, I believe it would be prudent to monitor her for a few more days in hospital and perhaps have the cardiac rehabilitation program involved with her care.
--- NOTE | 2016-07-26 18:23 | ECGEPIP ---
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
[2016-07-26 20:00] VITALS: BP 108/55
[2016-07-26 23:44] VITALS: BP 116/59
[2016-07-27] VITALS (7 sets, daily range): BP systolic 98–119; BP diastolic 52–71; O2SAT 90
[2016-07-27] MEDS: LEVALBUTEROL 1.25 MG/0.5 ML CONCENTRATE NEB INH SCH ×5 (03:15→20:09)
[2016-07-27] MEDS: SLF 3 ML SYR IV SCH ×3 (05:46→22:00)
[2016-07-27] MEDS: LEVOTHYROXINE 0.1 MG TAB (100 MCG) PO SCH (05:46)
[2016-07-27 05:54] LABS: MEAN CORPUSCULAR HEMOGLOBIN 28.9 pg (27.0-33.0); MEAN CORPUSCULAR HGB CONC 31.5 g/dl (32.0-36.5); MEAN CORPUSCULAR VOLUME 91.8 fl (80.0-96.0); RED CELL DISTRIBUTION WIDTH 13.5 % (11.5-14.5); WHITE BLOOD COUNT 5.8 K/mm3 (4.0-10.0)
[2016-07-27 06:01] LABS: ALBUMIN 2.8 GM/DL (3.2-5.2); ANION GAP 7 MEQ/L (8-16); BLOOD UREA NITROGEN 21 MG/DL (7-18); CALCIUM LEVEL 8.2 MG/DL (8.8-10.2); CARBON DIOXIDE LEVEL 34 MEQ/L (21-32); CHLORIDE LEVEL 104 MEQ/L (98-107); CREATININE FOR GFR 0.92 MG/DL (0.55-1.02); GLOMERULAR FILTRATION RATE > 60.0 (>39); GLUCOSE, FASTING 84 MG/DL (83-110); PHOSPHORUS LEVEL 4.4 MG/DL (2.5-4.9); POTASSIUM SERUM 3.9 MEQ/L (3.5-5.1); SODIUM LEVEL 145 MEQ/L (136-145)
[2016-07-27] MEDS: TIOTROPIUM INHALER/CAPSULE (SPIRIVA) INH SCH (07:19)
[2016-07-27] MEDS ORDERED: predniSONE 5 MG TAB PO SCH (09:00)
[2016-07-27] MEDS: APIXABAN 5 MG TAB (ELIQUIS) PO SCH ×2 (09:15→22:29)
[2016-07-27] MEDS: SPIRONOLACTONE 12.5MG PER 1/2 TABLET PO SCH (09:15)
[2016-07-27] MEDS: THIAMINE 100 MG TAB PO SCH (09:15)
[2016-07-27] MEDS: FOLIC ACID 1 MG TAB PO SCH (09:15)
[2016-07-27] MEDS: predniSONE 20 MG TAB PO SCH (09:16)
[2016-07-27] MEDS: oxyBUTYnin *DITROPAN XL* 5 MG TABCR PO SCH (09:16)
[2016-07-27] MEDS: SIMVASTATIN 20 MG TAB PO SCH (09:16)
[2016-07-27] MEDS: VERAPAMIL 120 MG SR TAB PO SCH ×2 (09:18→22:29)
[2016-07-27] MEDS: AMIODARONE 200 MG TAB (PACERONE) PO SCH ×2 (09:19→22:29)
[2016-07-27] MEDS: ASPIRIN 81 MG ENTERIC TAB PO SCH ×2 (09:20→09:26)
[2016-07-27] MEDS: FUROSEMIDE 20 MG TAB PO SCH (09:20)
[2016-07-27] MEDS: FLUTICASONE PROP 0.05% NASAL SPRAY 16 GM (FLONASE) SCH (09:21)
[2016-07-27] MEDS ORDERED: FUROSEMIDE 40 MG/4 ML VIAL (J1940) IV ONE (17:45)
[2016-07-27] MEDS ORDERED: POTASSIUM CHLORIDE 10 MEQ SR TABLET PO ONE (18:00)
--- NOTE | 2016-07-27 18:14 | IPN ---
DATE:07/27/2016 CARDIOLOGY PROGRESS NOTE SUBJECTIVE: Has been up in the room and does feel less short of breath today. Her cough is less productive as well. Had a good response to intravenous (IV) Lasix during the night. Has remained free of any fever or chills. Her sputum that is still productive is white. OBJECTIVE: Pleasant slightly barrel-chested elderly lady of medium body build currently comfortable lying fairly flat. No longer has raspy cough. Heart rate was 96 beats per minute (BPM) and regular, blood pressure 122/60 supine, 124/58 sitting with legs dependent, respiratory rate 18 per minute, O2 saturation 94% on room air. Afebrile. Weight today has decreased at least 2 kg from yesterday with negative fluid balance yesterday of 1500 mL. Normal oral moisture. No central cyanosis. Trachea midline. Neck veins were approximately 6 cm above the sternal angle. Increased anteroposterior chest diameter with only subtle inspiratory crepitations right base. Continues to have diffuse expiratory rhonchi and end-expiratory wheezes. Has no more than plus/minus sacral and distal lower extremity pitting, clearly improved from yesterday. TALENT PROGRAM MANAGER: This has shown consistent sinus rhythm with occasional premature atrial contractions (PACs) but no further paroxysmal supraventricular tachycardia (PSVT) on her amiodarone therapy. LABORATORY DATA: Hemoglobin 9.4. No white blood cell count. Platelet count has decreased to 76,000. Chemistry showed a slight metabolic alkalosis but other electrolytes were normal. Potassium 3.9. BUN has actually decreased to 21, creatinine slightly up to 0.9. Fasting glucose was 84. Albumin 2.8. IMPRESSION/PLAN 1. Heart failure (diastolic/acute on chronic): Has had a good response to diuretic therapy with significant improvement in pulmonary rales. Has also less systemic edema. Our plan is to administer additional IV Lasix tonight with tentative discharge plans for tomorrow. Will give an additional Lasix 40 mg IV with additional 40 mEq of potassium chloride. A followup PA left lateral chest x-ray will also be obtained in the morning. 2. Paroxysmal supraventricular tachycardia: Continues to tolerate her verapamil and amiodarone without adverse effect. Her dose of these medications will be amiodarone 200 mg twice a day, and verapamil SR 120 mg twice a day. Again has remained free of any manifest gastrointestinal (GI) or other bleeding, but her platelet count has again dropped slightly to 76,000. Her Eliquis oral anticoagulation remains on hold at this time. 3. Abnormal electrocardiogram (EKG): We will obtain a followup EKG tomorrow morning; with her current level of activity has remained free of symptomatic myocardial ischemia. Despite her current medications has remained free of any symptomatic bradyarrhythmia. The followup study will be obtained in the morning prior to her discharge. 4. Pulmonary heart disease (chronic): Signs of right heart failure have improved with diuretic therapy. Remains well oxygenated on room air alone. Expiratory wheezing does not appear any worse on tapering doses of prednisone. Continues on Xopenex nebulizer and Spiriva. 5. Hypertensive heart disease (benign with heart failure): Current blood pressure remains controlled on verapamil and diuretic therapy. 6. Mitral valve disorder (nonrheumatic): No auscultatory changes today. Remains free of signs of endocarditis. We are confident she will be able to safely be discharged from the cardiac standpoint tomorrow morning.
[2016-07-28] MEDS: LEVALBUTEROL 1.25 MG/0.5 ML CONCENTRATE NEB INH SCH ×3 (04:00→08:12)
[2016-07-28 04:45] VITALS: BP 97/61
[2016-07-28 05:37] LABS: ALBUMIN 3.1 GM/DL (3.2-5.2); CALCIUM LEVEL 8.4 MG/DL (8.8-10.2); CREATININE FOR GFR 1.13 MG/DL (0.55-1.02); GLOMERULAR FILTRATION RATE 50.4 (>39); PHOSPHORUS LEVEL 5.6 MG/DL (2.5-4.9); POTASSIUM SERUM 4.3 MEQ/L (3.5-5.1)
[2016-07-28 05:54] LABS: MEAN CORPUSCULAR HEMOGLOBIN 28.9 pg (27.0-33.0); MEAN CORPUSCULAR HGB CONC 31.9 g/dl (32.0-36.5); MEAN CORPUSCULAR VOLUME 90.9 fl (80.0-96.0); RED CELL DISTRIBUTION WIDTH 13.6 % (11.5-14.5); WHITE BLOOD COUNT 9.7 K/mm3 (4.0-10.0)
[2016-07-28] MEDS: LEVOTHYROXINE 0.1 MG TAB (100 MCG) PO SCH (06:30)
[2016-07-28] MEDS: SLF 3 ML SYR IV SCH (06:30)
[2016-07-28 08:00] VITALS: BP 127/71
[2016-07-28] MEDS: TIOTROPIUM INHALER/CAPSULE (SPIRIVA) INH SCH (08:13)
[2016-07-28] MEDS: FLUTICASONE PROP 0.05% NASAL SPRAY 16 GM (FLONASE) SCH (08:37)
[2016-07-28 08:38] VITALS: BP 127/71
[2016-07-28] MEDS: VERAPAMIL 120 MG SR TAB PO SCH (08:38)
[2016-07-28] MEDS: ASPIRIN 81 MG ENTERIC TAB PO SCH (08:38)
[2016-07-28] MEDS: SIMVASTATIN 20 MG TAB PO SCH (08:38)
[2016-07-28] MEDS: THIAMINE 100 MG TAB PO SCH (08:38)
[2016-07-28] MEDS: SPIRONOLACTONE 12.5MG PER 1/2 TABLET PO SCH (08:38)
[2016-07-28] MEDS: oxyBUTYnin *DITROPAN XL* 5 MG TABCR PO SCH (08:38)
[2016-07-28] MEDS: AMIODARONE 200 MG TAB (PACERONE) PO SCH (08:38)
[2016-07-28] MEDS: FUROSEMIDE 20 MG TAB PO SCH (08:39)
[2016-07-28] MEDS: predniSONE 20 MG TAB PO SCH (08:39)
[2016-07-28] MEDS: APIXABAN 5 MG TAB (ELIQUIS) PO SCH (08:39)
[2016-07-28] MEDS: FOLIC ACID 1 MG TAB PO SCH (08:39)
--- NOTE | 2016-07-28 08:52 | REP ---
Chest x-ray: Two views. History: Follow up CHF. Comparison study July 26, 2016. Findings: The lungs are slightly hyperinflated as before but clear. Heart is near the upper range of normal in size. Pulmonary vasculature is not increased on today's chest x-ray and is improved from the previous study. The pleural angles are sharp. There is a dextroconvex curvature in the lower thoracic spine unchanged. No pleural effusion or pulmonary edema seen. Impression: Hyperinflation, borderline heart size, otherwise no active disease. Signed by Quirino Herrera MD 07/28/2016 09:38 A
[2016-07-28] MEDS ORDERED: FLUTISP (11:17)
[2016-07-28] MEDS ORDERED: ALDA25TA2 PO (11:17)
[2016-07-28] MEDS ORDERED: PRED10TA PO ×2 (11:17→12:00)
[2016-07-28] MEDS ORDERED: AMIO20TA PO ×2 (11:17→12:00)
[2016-07-28] MEDS ORDERED: LASI40TA PO ×2 (11:17→12:00)
[2016-07-28] MEDS ORDERED: VERA12TASA PO (11:17)
--- NOTE | 2016-07-28 11:25 | IPN ---
DATE: 07/28/2016 CARDIOLOGY PROGRESS NOTE SUBJECTIVE: The patient has been up in the [place] and has been free of shortness of breath, lightheadedness or chest discomfort. Has remained also free of any palpitations on her current amiodarone. Has been tolerating her medications without adverse effect. OBJECTIVE: Pleasant, slightly barrel-chested, elderly lady lying comfortably flat. Heart rate 84 beats per minute (BPM) and regular, blood pressure 114/58 sitting with legs dependent, respiratory rate 18, O2 saturation 92% on room air. Afebrile. Weight today is down at least 2 kg from yesterday with a negative fluid balance recorded. No pallor or central cyanosis. Trachea midline. Neck veins appear to be approximately 3-4 cm above sternal angle. No current inspiratory crepitations. Ongoing prolonged expiration, but less wheezing than yesterday. Has plus/minus sacral and distal lower extremity pitting. DIET KITCHEN COOK: This has been showing consistent sinus rhythm with occasional premature atrial contractions (PACs), but no paroxysmal supraventricular tachycardia (PSVT). CHEST X-RAY: Reviewed independently shows borderline cardiomegaly with some calcification of the aortic arch. Pulmonary vasculature is normal, improved from 2 days ago. Interstitial edema also appears to have resolved. No current pleural effusions. ELECTROCARDIOGRAM (EKG): Tracing taken this morning shows a sinus rhythm at 78 BPM. Frequent isolated PACs. Left atrial conduction disturbance. Low voltages with right axis deviation in keeping with her pulmonary disease. Nonspecific ST/T-wave abnormalities, but there is no significant change from prior study 07/26/2016. LABORATORY DATA: Blood work today shows hemoglobin of 10.7. Normal white blood cell count. Platelet count has been essentially stable the past 3 days at approximately 80,000. Has a prior history of thrombocytopenia, etiology ?, autoimmune ?. Chemistry showed electrolyte balance except for slight metabolic alkalosis with her diuresis. BUN slightly up from yesterday at 28, creatinine slightly up at 1.1, fasting glucose 84, and albumin was 3.1. IMPRESSION/PLAN: 1. Heart failure (diastolic/acute on chronic): Appears to be at her functional dry weight at this time and I believe it is safe for her to be discharged home. We have emphasized the importance of a modest salt and fluid intake restriction and for her to weigh herself daily. We would suggest sending her home on Lasix 40 mg daily. I have instructed her not to take her Lasix should her weight drop more than 2 pounds and to contact our office should her weight increase by more than 2 pounds in 24 hours or 4 pounds and in one week. We will arrange for followup blood work just prior to an office visit in 7-10 days. 2. Paroxysmal supraventricular tachycardia: On her combination verapamil and amiodarone has been free of further tachyarrhythmia. Still has frequent isolated PACs. Has been tolerating Eliquis the past day or so without hemorrhagic complication. From our standpoint, we would continue amiodarone 200 mg twice a day, verapamil SR 140 mg twice a day with Eliquis 5 mg twice a day. 3. Abnormal EKG: Followup EKG today showed no repolarization change from 2 days ago and has been ambulating on the kiser without symptom to suggest myocardial ischemia. Remains on protective verapamil, simvastatin, and low-dose aspirin. 4. Pulmonary heart disease (chronic): Signs of right heart failure have significantly improved. Oxygenation on room air remains fine. Wheezing has actually improved. Would continue her same home medications of Spiriva inhaler once daily, Ventolin 2 puffs every 4 hours, Symbicort 1 inhalation twice a day, and her weaning doses of prednisone. 5. Hypertensive heart disease (benign with heart failure): Blood pressure currently is controlled on verapamil, Lasix and spironolactone. Would continue spirolactone low-dose daily. 6. Mitral valve disorder (nonrheumatic): No auscultatory changes today and no signs of endocarditis. As mentioned, we will intend on seeing her for a followup clinic visit in 7-10 days time. We will arrange for a complete blood count and renal profile to be drawn the day before her visit. Cardiac medications will include: amiodarone 200 twice a day, Verapamil SR 120 mg twice a day, Eliquis 5 mg twice a day, Lasix 40 mg daily, with sliding scale as directed and spironolactone 12.5 mg daily with aspirin 81 mg daily. Should she have any questions, we have encouraged her to contact our office.
[2016-07-28] MEDS ORDERED: VERA1TAB10 PO (12:00)
[2016-07-28] MEDS ORDERED: SPIR25TA2 PO (12:00)
[2016-07-28] MEDS ORDERED: FLON1SPR (12:00)
--- NOTE | 2016-07-28 13:49 | ECGEPIP ---
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 Frequent isolated PACs. LA conduction disturbance. Low limb voltages with rightward axis and persistent S waves in V5 and V6; pulmonary disease versus body habitus. Could not rule out prior PWMI versus RVH. Subtle nonspecific ST/T-wave abnormalities. Increased atrial ectopy but otherwise unchanged from 07/26/16. Electronically Signed On 07-28-2016 13:48:44 EDT by Jose Grover
--- NOTE | 2016-07-28 18:47 | DSES ---
DATE OF ADMISSION: 07/19/2016 DATE OF DISCHARGE: 07/28/2016 PRIMARY CARE PROVIDER: Dr. Andrade Kimball. CONSULTANTS: Rn Rehab, Dr. Grover. PROCEDURES: None. COMPLICATIONS: None. ADMISSION/DISCHARGE DIAGNOSES: 1. Paroxysmal supraventricular tachycardia. 2. Thrombocytopenia. 3. Acute on chronic diastolic congestive heart failure. 4. History of cor pulmonale with mild to moderate pulmonary hypertension. 5. History of chronic obstructive pulmonary disease. HOSPITALIZATION COURSE: The patient is a 71-year-old female who presented to the [facility] on 07/19/2016, for worsening of difficulty breathing. The patient was determined to have new-onset congestive heart failure, possibly related to the irregular heart rate and the patient was admitted to cardiac telemetry floor, and the patient was started on anticoagulation. Medication was given to the patient to attempt to control the heart rate. The patient also presented with new-onset of congestive heart failure (CHF), and the patient was being diuresed with intravenous (IV) Lasix. However, there was difficulty controlling the patient's heart rate. The patient was started on a Cardizem drip and multiple doses of Eliquis given, and the administrative asst, Dr. Grover, has been consulted. Later, the patient's drip was able to be discontinued and the patient was switched to oral formulation, and the patient also started on amiodarone. The patient's fluid status was being monitored closely and intermittent diuresis was given. Later in the hospitalization, the patient started having some upper respiratory symptoms, possibly due the viral infection and the patient's symptoms were improving with conservative medical management. Due to worsening breathing probably contributed from her wheezes, the patient has been on a slow taper of steroids. On 07/28/2016, the patient was determined medically stable for discharge with instructions to monitor her daily weight, and if there is any more than two pounds weight change or weight loss, the patient should report to the provider. OBJECTIVE: VITAL SIGNS: Temperature is 97.7, pulse 82, respirations 18, blood pressure 127/71, pulse oximetry 92% on room air. LABORATORY DATA: Labs on the day of discharge, WBC 9.7, hemoglobin 10.7, hematocrit 33.7, platelet count is 79. Sodium 143, potassium 4.3, chloride 100, carbon dioxide 35, BUN 28, creatinine 1.13, GFR is 50.4, fasting glucose 84, calcium 8.4, phosphorus 5.6, albumin 3.1. MICROBIOLOGY: Blood cultures negative after five days times two sets. Respiratory virus panel is negative. Urine culture is negative. Sputum Gram's stain showed normal mary. IMAGING: Chest x-ray on 07/19/2016, showed consistent with congestive heart failure. DISCHARGE MEDICATIONS: - amiodarone 200 mg by mouth twice a day - Flonase 15 mcg per nasal daily - Lasix 40 mg by mouth daily - prednisone on the tapering scale, 20 mg by mouth daily for three days, then 10 mg by mouth daily for four days - spironolactone 12.5 mg by mouth daily - verapamil 120 mg by mouth twice a day - Ventolin two puff inhalation every four hours as needed - Eliquis 5 mg by mouth twice a day - aspirin 81 mg by mouth daily - Pulmicort two puff inhalation twice a day - ergocalciferol 5000 units by mouth every two weeks - folic acid 1 mg by mouth daily - Synthroid 100 mcg by mouth daily - oxybutynin 10 mg by mouth daily - simvastatin 20 mg by mouth daily - vitamin B1 100 mg by mouth daily - Spiriva two inhalations daily - valacyclovir 2 grams by mouth twice a day as needed for arnie sores DISCHARGE INSTRUCTIONS: Discontinue lines. Discharge home. Activity as tolerated. Low-salt diet as tolerated. The patient should be on two liter fluid restriction. The patient should followup with the primary care provider, Dr. Andrade Kimball, within one week. The patient should followup with administrative asst, Dr. Grover, in 7-10 days. The patient is recommended to measure her weight on a daily basis. If there is a significant weight loss or weight gain, the patient should inform the medical provider. DISCHARGE CONDITION: Stable. DISCHARGE TIME: Greater than 30 minutes. MTDD
--- NOTE | 2016-07-28 22:59 | IPN ---
DATE OF VISIT: 07/27/2016 SUBJECTIVE: The patient seen and examined in the room today. The patient had worsening congestion. She has cough with sputum, but sputum is white. The patient also noted to have increased wheeze. OBJECTIVE: VITAL SIGNS: Temperature is 97.4, pulse is 74, respirations 20, blood pressure is 98/52, pulse oximetry is 95% on room air. GENERAL: No signs of acute distress. Alert and oriented times three. HEENT: Normocephalic, atraumatic. Extraocular motor grossly intact. LUNGS: Positive increased wheezes. I cannot appreciate any significant crackles. ABDOMEN: Soft, nontender, nondistended. Bowel sounds present. No rebound, no guarding. EXTREMITIES: No edema. No sign of cyanosis. LABORATORY DATA: White blood count (WBC) 5.8, hemoglobin 9.4, hematocrit 29.8, platelet count is 76. Sodium is 145, potassium 3.9, chloride is 104, carbon dioxide is 34, BUN is 21, creatine is 0.92, glomerular filtration rate (GFR) greater than 60, calcium is 8.2, phosphorus 4.4, albumin is 2.8. ASSESSMENT AND PLAN: 1. Paroxysmal supraventricular tachycardia. Ship[employer] Electronic Warfare Officer, Dr. Dela Cruz, is being consulted. The patient's cardiac medication has been adjusted. 2. Chronic obstructive pulmonary disease (COPD) exacerbation. Initially, the patient was on steroid taper, now the patient started having significant wheezes with increased cough. The patient's chest x-ray does not show any consolidation or significant overload. The patient does not have any white count. Will slow down the steroid taper. The patient will continue using breathing treatment as needed. It will help with the patient's wheezing and the breathing. 3. History of Cor pulmonale with mild to moderate pulmonary hypertension. 4. Acute on chronic diastolic heart failure. Currently patient is starting to show some sign of fluid overload. It would be beneficial for the patient to receive a dose of Lasix. 5. Deep vein thrombosis (DVT) prophylaxis. The patient is on JAUN, sequential compression device. MTDD
== END 2016-07-28 12:17 | disposition home or self-care (01) | DRG 292 ==
LOC: EDBD 07:50 → M ED 08:40 → M ED INP 10:20 → M PCU 13:38
PROVIDERS: ADMIT General Practice; ATTEND Internal Medicine
DX: I11.0 Hypertensive heart disease with heart failure (principal); I48.92 Unspecified atrial flutter; I47.1 Supraventricular tachycardia; I48.0 Paroxysmal atrial fibrillation; I50.33 Acute on chronic diastolic (congestive) heart failure; I27.81 Cor pulmonale (chronic); J44.9 Chronic obstructive pulmonary disease, unspecified; E78.5 Hyperlipidemia, unspecified; D64.9 Anemia, unspecified; D69.6 Thrombocytopenia, unspecified; E89.0 Postprocedural hypothyroidism; R16.1 Splenomegaly, not elsewhere classified; I34.0 Nonrheumatic mitral (valve) insufficiency; Z87.891 Personal history of nicotine dependence; Z79.01 Long term (current) use of anticoagulants; Z79.82 Long term (current) use of aspirin; Z79.51 Long term (current) use of inhaled steroids; Z79.899 Other long term (current) drug therapy; Z88.2 Allergy status to sulfonamides; Z88.1 Allergy status to other antibiotic agents; Z88.8 Allergy status to other drugs, medicaments and biological substances

== ENCOUNTER → 2016-08-24 | Outpatient (REF) | payer MEDICARE, OTHER ==
[~2016-08-24] MED LIST changes: +ALDA25TA2 PO; +AMIO20TA PO; +ERGO8000 PO; +ESTR625TA PO; +FLON1SPR; +FLUTISP; +LASI40TA PO; +LEVO100T5 PO; +METO-346 PO; +PACE0.05 PO; +REGL10TA6 PO; +SPIR1CAP INH; +SPIR25TA2 PO; +TRAM50TA2 PO; +VALA1TAB PO; +VERA12TASA PO; +VERA1TAB10 PO; +ZYVO100T PO
== END ==
LOC: M LAB REF 13:13
PROVIDERS: ATTEND Physician Assistant Medical
DX: N30.01 Acute cystitis with hematuria (principal)

== ENCOUNTER 2016-08-27 07:50 | Emergency (ER) | payer MEDICARE, OTHER ==
[~2016-08-27] VITALS: Ht 165.1 cm; Wt 61.7 kg
[~2016-08-27 07:50] MED LIST changes: -PACE0.05 PO; -REGL10TA6 PO; -TRAM50TA2 PO; -ZYVO100T PO
[2016-08-27] MEDS ORDERED: PACE0.05 PO (08:15)
[2016-08-27] MEDS ORDERED: KEFL500C7 PO (08:17)
[2016-08-27] MEDS ORDERED: TRAM50TA2 PO (09:41)
[2016-08-27] MEDS ORDERED: traMADol 50 MG TAB PO ONE (09:45)
[2016-08-27 09:53] VITALS: BP 129/64
--- NOTE | 2016-08-28 04:53 | ECGEPIP ---
Stationary ECG Study 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 Order Number: [id number] Reading MD: Octavio Foster Measurements Intervals [place] Rate: 85 P: 66 DE: 169 QRS: 79 QRSD: 88 T: 86 QT: 374 QTc: 445 Interpretive Statements SINUS RHYTHM LOW QRS VOLTAGE IN EXTREMITY LEADS NONSPECIFIC ST & T-WAVE ABNORMALITY SIMILAR TO 07/28/16 Electronically Signed On 08-28-2016 4:52:45 EDT by Octavio Foster
== END 2016-08-27 10:03 | disposition home or self-care (01) ==
LOC: M ED 09:04
DX: S46.812A Strain of other muscles, fascia and tendons at shoulder and upper arm level, left arm, initial encounter (principal); X58.XXXA Exposure to other specified factors, initial encounter; Y92.89 Other specified places as the place of occurrence of the external cause; Y93.89 Activity, other specified; Y99.8 Other external cause status; I11.0 Hypertensive heart disease with heart failure; J44.9 Chronic obstructive pulmonary disease, unspecified; I50.9 Heart failure, unspecified; E07.9 Disorder of thyroid, unspecified; Z79.899 Other long term (current) drug therapy; Z79.82 Long term (current) use of aspirin; Z79.01 Long term (current) use of anticoagulants; Z88.1 Allergy status to other antibiotic agents; Z88.2 Allergy status to sulfonamides; Z88.8 Allergy status to other drugs, medicaments and biological substances; Z87.891 Personal history of nicotine dependence

== ENCOUNTER → 2016-09-03 | Outpatient (REF) | payer MEDICARE, OTHER ==
[~2016-09-03] MED LIST changes: +PACE0.05 PO; +REGL10TA6 PO; +TRAM50TA2 PO; +ZYVO100T PO
== END ==
LOC: M LAB REF 13:17 → EEVIPCON 13:17
PROVIDERS: ATTEND Physician Assistant Medical
DX: N39.0 Urinary tract infection, site not specified (principal)

== ENCOUNTER 2016-09-06 09:59 | Emergency (ER) | payer MEDICARE, OTHER ==
[~2016-09-06] VITALS: Ht 165.1 cm; Wt 59.9 kg
[~2016-09-06 09:59] MED LIST changes: -REGL10TA6 PO; -ZYVO100T PO
[2016-09-06] MEDS ORDERED: METOCLOPRAMIDE 10 MG TAB PO ONE (12:45)
[2016-09-06] MEDS ORDERED: REGL10TA6 PO (13:51)
[2016-09-06] MEDS ORDERED: ZYVO100T PO (13:51)
[2016-09-06 14:07] VITALS: BP 100/60
== END 2016-09-06 14:09 | disposition home or self-care (01) ==
LOC: M ED 12:25
DX: N39.0 Urinary tract infection, site not specified (principal); F33.9 Major depressive disorder, recurrent, unspecified; E05.90 Thyrotoxicosis, unspecified without thyrotoxic crisis or storm; Z79.899 Other long term (current) drug therapy; Z88.8 Allergy status to other drugs, medicaments and biological substances; Z88.2 Allergy status to sulfonamides; Z88.1 Allergy status to other antibiotic agents; Z79.82 Long term (current) use of aspirin; Z87.891 Personal history of nicotine dependence; I51.9 Heart disease, unspecified

== ENCOUNTER → 2016-09-12 | Outpatient (REF) | payer MEDICARE, OTHER ==
[~2016-09-12] MED LIST changes: +REGL10TA6 PO; +ZYVO100T PO
[2016-09-12 14:37] LABS: ALBUMIN 3.2 GM/DL (3.2-5.2); ALBUMIN/GLOBULIN RATIO 1.07 (1.00-1.93); BILIRUBIN,TOTAL 0.4 MG/DL (0.2-1.0); CALCIUM LEVEL 7.4 MG/DL (8.8-10.2); CREATININE FOR GFR 2.22 MG/DL (0.55-1.02); GLOMERULAR FILTRATION RATE 23.1 (>39); MAGNESIUM LEVEL 1.6 MG/DL (1.8-2.4); TOTAL PROTEIN 6.2 GM/DL (6.4-8.2)
[2016-09-12 15:14] LABS: POTASSIUM SERUM 2.9 MEQ/L (3.5-5.1)
== END ==
LOC: M LABDRAW1 13:35
PROVIDERS: ATTEND Physician Assistant
DX: I47.1 Supraventricular tachycardia (principal); I50.32 Chronic diastolic (congestive) heart failure

== ENCOUNTER → 2016-09-18 | Outpatient (REF) | payer MEDICARE, OTHER ==
[2016-09-18 12:17] LABS: ALBUMIN 3.3 GM/DL (3.2-5.2); CALCIUM LEVEL 9.1 MG/DL (8.8-10.2); CREATININE FOR GFR 1.29 MG/DL (0.55-1.02); GLOMERULAR FILTRATION RATE 43.2 (>39); PHOSPHORUS LEVEL 4.4 MG/DL (2.5-4.9); POTASSIUM SERUM 4.6 MEQ/L (3.5-5.1); URIC ACID 9.2 MG/DL (2.6-6.0)
== END ==
LOC: M LABDRAW1 11:38
PROVIDERS: ATTEND Emergency Medicine
DX: N17.9 Acute kidney failure, unspecified (principal); M10.9 Gout, unspecified

== ENCOUNTER → 2016-09-21 | Outpatient (REF) | payer MEDICARE, OTHER | LOC: M LAB REF 11:27 | PROVIDERS: ATTEND Emergency Medicine | DX: N39.0 Urinary tract infection, site not specified (principal) ==

== ENCOUNTER → 2016-10-01 | Outpatient (REF) | payer MEDICARE, OTHER | LOC: M LAB REF 12:49 | PROVIDERS: ATTEND Emergency Medicine | DX: N39.0 Urinary tract infection, site not specified (principal) ==

== ENCOUNTER → 2016-10-15 | Outpatient (REF) | payer MEDICARE, OTHER | LOC: M LAB REF 13:07 | PROVIDERS: ATTEND Emergency Medicine | DX: N39.0 Urinary tract infection, site not specified (principal) ==

== ENCOUNTER → 2016-10-21 | Outpatient (CLI) | payer MEDICARE, OTHER ==
[2016-10-21 18:14] LABS: MEAN CORPUSCULAR HEMOGLOBIN 26.9 pg (27.0-33.0); MEAN CORPUSCULAR HGB CONC 30.5 g/dl (32.0-36.5); MEAN CORPUSCULAR VOLUME 88.4 fl (80.0-96.0); PLATELET COUNT, AUTOMATED 147 k/mm3 (150-450); WHITE BLOOD COUNT 7.8 K/mm3 (4.0-10.0)
[2016-10-21 18:52] LABS: BANDS 2 % (< 11); EOSINOPHILS 2 % (0-5)
[2016-10-21 18:53] LABS: ANISOCYTOSIS 1+; HYPOCHROMASIA 1+
== END ==
LOC: M WUC 09:10
PROVIDERS: ATTEND Physician Assistant
DX: M79.674 Pain in right toe(s) (principal)

== ENCOUNTER → 2017-01-08 | Outpatient (CLI) | payer MEDICARE, OTHER ==
[~2017-01-08] MED LIST changes: +AMIO200T PO; -AMIO20TA PO; +FERR1TAB8 PO; -FERR325T PO; -FOLI1TAB2 PO; +FOLI1TAB4 PO; +KEFL500C17 PO; -KEFL500C7 PO; +LEVA1TAB2 PO; -LEVA500T PO; -METO12TA PO; +METO1TAB87 PO; +PRED10TA2 PO; -PROA1AER INH; +PROAAER10 INH; +QUIN1TAB15 PO; -QUIN40TA5 PO; -VALA1TAB PO; +VALA1TAB2 PO
[2017-01-08 11:54] LABS: ALBUMIN 3.4 GM/DL (3.2-5.2); ALKALINE PHOSPHATASE 77 U/L (45-117); ALT/SGPT < 6 U/L (12-78); ANION GAP 10 MEQ/L (8-16); AST/SGOT < 3 U/L (15-37); BILIRUBIN,TOTAL 0.3 MG/DL (0.2-1.0); BLOOD UREA NITROGEN 18 MG/DL (7-18); CALCIUM LEVEL 8.5 MG/DL (8.8-10.2); CARBON DIOXIDE LEVEL 31 MEQ/L (21-32); CHLORIDE LEVEL 105 MEQ/L (98-107); CHOLESTEROL LEVEL 116 MG/DL (<200); CREATININE FOR GFR 0.99 MG/DL (0.55-1.02); GLOMERULAR FILTRATION RATE 58.7 (>39); GLUCOSE, FASTING 106 MG/DL (83-110); MAGNESIUM LEVEL 1.9 MG/DL (1.8-2.4); POTASSIUM SERUM 3.1 MEQ/L (3.5-5.1); SODIUM LEVEL 146 MEQ/L (136-145); TOTAL PROTEIN 6.5 GM/DL (6.4-8.2); TRIGLYCERIDES LEVEL 115 MG/DL (<150); URIC ACID 7.4 MG/DL (2.6-6.0)
[2017-01-08 12:17] LABS: ADD MANUAL DIFFER YES; MEAN CORPUSCULAR HEMOGLOBIN 23.9 pg (27.0-33.0); MEAN CORPUSCULAR VOLUME 79.6 fl (80.0-96.0); PLATELET COUNT, AUTOMATED 139 k/mm3 (150-450); WHITE BLOOD COUNT 7.8 K/mm3 (4.0-10.0)
[2017-01-08 13:29] LABS: HYPOCHROMASIA 1+
== END ==
LOC: M SMT 09:21
PROVIDERS: ATTEND Emergency Medicine
DX: I47.1 Supraventricular tachycardia (principal); E03.9 Hypothyroidism, unspecified; I10 Essential (primary) hypertension; M10.9 Gout, unspecified; D69.3 Immune thrombocytopenic purpura; E78.2 Mixed hyperlipidemia; E55.9 Vitamin D deficiency, unspecified

== ENCOUNTER → 2017-03-04 | Outpatient (REF) | payer MEDICARE, OTHER ==
[2017-03-04 12:54] LABS: ALBUMIN 3.5 GM/DL (3.2-5.2); ANION GAP 6 MEQ/L (8-16); BLOOD UREA NITROGEN 22 MG/DL (7-18); CALCIUM LEVEL 8.3 MG/DL (8.8-10.2); CARBON DIOXIDE LEVEL 29 MEQ/L (21-32); CHLORIDE LEVEL 109 MEQ/L (98-107); CREATININE FOR GFR 0.92 MG/DL (0.55-1.02); GLOMERULAR FILTRATION RATE > 60.0 (>39); GLUCOSE, FASTING 82 MG/DL (83-110); MAGNESIUM LEVEL 2.2 MG/DL (1.8-2.4); PHOSPHORUS LEVEL 4.8 MG/DL (2.5-4.9); SODIUM LEVEL 144 MEQ/L (136-145)
== END ==
LOC: M LABDRAW1 08:38
PROVIDERS: ATTEND Physician Assistant
DX: I47.1 Supraventricular tachycardia (principal); I50.32 Chronic diastolic (congestive) heart failure; I48.0 Paroxysmal atrial fibrillation

== ENCOUNTER → 2017-06-17 | Outpatient (REF) | payer MEDICARE, OTHER | LOC: M LAB REF 13:17 | DX: N39.0 Urinary tract infection, site not specified (principal) | CPT/HCPCS: 87086 ==

== ENCOUNTER → 2017-06-23 | Outpatient (REF) | payer MEDICARE, OTHER | LOC: M LAB REF 19:03 | DX: N30.01 Acute cystitis with hematuria (principal) | CPT/HCPCS: 87086 ==

== ENCOUNTER → 2017-07-09 | Outpatient (REF) | payer MEDICARE, OTHER ==
[2017-07-09 13:58] LABS: APPEARANCE, URINE HAZY (CLEAR); BACTERIA, URINE AUTO NEGATIVE (NEGATIVE); BILIRUBIN, URINE AUTO NEGATIVE (NEGATIVE); BLOOD, URINE BLOOD NEGATIVE (NEGATIVE); COLOR, URINE YELLOW (YELLOW); GLUCOSE, URINE (UA) AUTO NEGATIVE (NEGATIVE); KETONE, URINE AUTO NEGATIVE (NEGATIVE); LEUKOCYTE ESTERASE, URINE AUTO 1+ (NEGATIVE); MUCUS, URINE SMALL (NEGATIVE); NITRITE, URINE AUTO NEGATIVE (NEGATIVE); PROTEIN, URINE AUTO NEGATIVE (NEGATIVE); RBC, URINE AUTO 2 /HPF (0-3); SPECIFIC GRAVITY URINE AUTO 1.016 (1.002-1.035); SQUAMOUS EPITHELIAL CELL UR AU 2 /HPF (0-6); UROBILINOGEN, URINE AUTO 0.2 mg/dL (0.0-2.0); WBC, URINE AUTO 4 /HPF (0-3)
== END ==
LOC: M LAB REF 13:33
DX: N39.0 Urinary tract infection, site not specified (principal)
CPT/HCPCS: 81001

== ENCOUNTER → 2017-07-18 | Outpatient (REF) | payer MEDICARE, OTHER ==
[2017-07-18 13:04] LABS: ALBUMIN 3.6 GM/DL (3.2-5.2); ANION GAP 7 MEQ/L (8-16); BLOOD UREA NITROGEN 26 MG/DL (7-18); CALCIUM LEVEL 8.2 MG/DL (8.8-10.2); CARBON DIOXIDE LEVEL 30 MEQ/L (21-32); CHLORIDE LEVEL 108 MEQ/L (98-107); CREATININE FOR GFR 1.08 MG/DL (0.55-1.30); GLOMERULAR FILTRATION RATE 52.9 (>39); GLUCOSE, FASTING 77 MG/DL (70-100); MAGNESIUM LEVEL 2.1 MG/DL (1.8-2.4); PHOSPHORUS LEVEL 4.3 MG/DL (2.5-4.9); POTASSIUM SERUM 3.8 MEQ/L (3.5-5.1); SODIUM LEVEL 145 MEQ/L (136-145)
== END ==
LOC: M LABDRAW1 12:18
DX: I47.1 Supraventricular tachycardia (principal); I50.32 Chronic diastolic (congestive) heart failure; I48.0 Paroxysmal atrial fibrillation

== ENCOUNTER → 2017-07-18 | Outpatient (REF) | payer MEDICARE, OTHER ==
[2017-07-18 12:42] LABS: EOS # 0.1 10^3/uL (0.0-0.50); EOS % 1.4 % (0.0-3.0); HEMATOCRIT 33.2 % (36.0-47.0); HEMOGLOBIN 9.7 g/dl (12.0-16.0); IMMATURE GRANULOCYTE % 0.2 % (0-3.0); LYMPH # 1.1 10^3/uL (1.5-4.5); LYMPH % 24.4 % (24.0-44.0); MEAN CORPUSCULAR HEMOGLOBIN 25.3 pg (27.0-33.0); MEAN CORPUSCULAR HGB CONC 29.2 g/dl (32.0-36.5); MEAN CORPUSCULAR VOLUME 86.5 fl (80.0-96.0); NEUTROPHILS # 2.2 10^3/uL (1.8-7.7); PLATELET COUNT, AUTOMATED 118 10^3/uL (150-450); RED BLOOD COUNT 3.84 10^6/uL (4.00-5.40); RED CELL DISTRIBUTION WIDTH 15.9 % (11.5-14.5); WHITE BLOOD COUNT 4.4 10^3/uL (4.0-10.0)
[2017-07-18 13:03] LABS: TOTAL 25(OH) VITAMIN D 59.6 NG/ML (30.0-100.0)
[2017-07-18 13:42] LABS: ALKALINE PHOSPHATASE 75 U/L (45-117); ALT/SGPT 7 U/L (12-78); AST/SGOT 4 U/L (7-37); BILIRUBIN,TOTAL 0.3 MG/DL (0.2-1.0); CHLORIDE LEVEL 109 MEQ/L (98-107); CREATININE FOR GFR 1.07 MG/DL (0.55-1.30); FREE T4 1.15 NG/DL (0.76-1.46); HDL CHOLESTEROL 43 MG/DL (>40); MAGNESIUM LEVEL 2.1 MG/DL (1.8-2.4); SODIUM LEVEL 145 MEQ/L (136-145); TOTAL PROTEIN 6.4 GM/DL (6.4-8.2)
[2017-07-18 14:10] LABS: ALBUMIN 3.7 GM/DL (3.2-5.2); ALBUMIN/GLOBULIN RATIO 1.37 (1.00-1.93); ANION GAP 6 MEQ/L (8-16); BLOOD UREA NITROGEN 25 MG/DL (7-18); CALCIUM LEVEL 8.2 MG/DL (8.8-10.2); CARBON DIOXIDE LEVEL 30 MEQ/L (21-32); CHOLESTEROL LEVEL 106 MG/DL (<200); CHOLESTEROL RISK RATIO 2.465 (<5); GLUCOSE, FASTING 80 MG/DL (70-100); LDL CHOLESTEROL 54.6 MG/DL (<100); NON-HDL-C 63 MG/DL; TRIGLYCERIDES LEVEL 42 MG/DL (<150); URIC ACID 5.4 MG/DL (2.6-6.0)
== END ==
LOC: M LABDRAW1 12:16
DX: E55.9 Vitamin D deficiency, unspecified (principal); E78.2 Mixed hyperlipidemia; D69.3 Immune thrombocytopenic purpura; M10.9 Gout, unspecified; I11.0 Hypertensive heart disease with heart failure; E03.9 Hypothyroidism, unspecified; I47.1 Supraventricular tachycardia; I50.32 Chronic diastolic (congestive) heart failure; I48.0 Paroxysmal atrial fibrillation
CPT/HCPCS: 83735

== ENCOUNTER 2017-07-27 23:32 | Observation (INO) | payer MEDICARE, OTHER ==
[2017-07-28 00:40] LABS: BASO % 0.1 % (0.0-1.0); EOS % 0.6 % (0.0-3.0); HEMATOCRIT 34.7 % (36.0-47.0); HEMOGLOBIN 10.2 g/dl (12.0-16.0); IMMATURE GRANULOCYTE % 0.1 % (0-3.0); LYMPH # 1.2 10^3/uL (1.5-4.5); LYMPH % 17.1 % (24.0-44.0); MEAN CORPUSCULAR HGB CONC 29.4 g/dl (32.0-36.5); MONO # 1.7 10^3/uL (0.0-0.8); MONO % 25.2 % (0.0-5.0); NEUTROPHILS # 3.9 10^3/uL (1.8-7.7); NEUTROPHILS % 56.9 % (36.0-66.0); PLATELET COUNT, AUTOMATED 150 10^3/uL (150-450); RED BLOOD COUNT 4.08 10^6/uL (4.00-5.40); RED CELL DISTRIBUTION WIDTH 15.9 % (11.5-14.5); WHITE BLOOD COUNT 6.9 10^3/uL (4.0-10.0)
[2017-07-28 01:08] LABS: ALBUMIN 3.7 GM/DL (3.2-5.2); ALBUMIN/GLOBULIN RATIO 1.23 (1.00-1.93); ALKALINE PHOSPHATASE 76 U/L (45-117); ALT/SGPT 8 U/L (12-78); ANION GAP 9 MEQ/L (8-16); AST/SGOT 8 U/L (7-37); BILIRUBIN,DIRECT 0.1 MG/DL (0.0-0.2); BILIRUBIN,TOTAL 0.4 MG/DL (0.2-1.0); BLOOD UREA NITROGEN 32 MG/DL (7-18); CALCIUM LEVEL 8.4 MG/DL (8.8-10.2); CARBON DIOXIDE LEVEL 29 MEQ/L (21-32); CHLORIDE LEVEL 109 MEQ/L (98-107); CPK CREATINE PHOSPHOKINASE 27 U/L (26-192); CREATININE FOR GFR 1.17 MG/DL (0.55-1.30); GLOMERULAR FILTRATION RATE 48.3 (>39); GLUCOSE, FASTING 115 MG/DL (70-100); LIPASE 144 U/L (73-393); POTASSIUM SERUM 3.3 MEQ/L (3.5-5.1); SODIUM LEVEL 147 MEQ/L (136-145); TOTAL PROTEIN 6.7 GM/DL (6.4-8.2); TROPONIN I < 0.02 NG/ML (< 0.10)
[2017-07-28 02:17] LABS: APPEARANCE, URINE CLEAR (CLEAR); BACTERIA, URINE AUTO NEGATIVE (NEGATIVE); BILIRUBIN, URINE AUTO NEGATIVE (NEGATIVE); BLOOD, URINE BLOOD 1+ (NEGATIVE); COLOR, URINE YELLOW (YELLOW); GLUCOSE, URINE (UA) AUTO NEGATIVE (NEGATIVE); KETONE, URINE AUTO NEGATIVE (NEGATIVE); LEUKOCYTE ESTERASE, URINE AUTO NEGATIVE (NEGATIVE); NITRITE, URINE AUTO NEGATIVE (NEGATIVE); PROTEIN, URINE AUTO NEGATIVE (NEGATIVE); RBC, URINE AUTO 4 /HPF (0-3); SPECIFIC GRAVITY URINE AUTO 1.018 (1.002-1.035); SQUAMOUS EPITHELIAL CELL UR AU 0 /HPF (0-6); UROBILINOGEN, URINE AUTO 0.2 mg/dL (0.0-2.0); WBC, URINE AUTO 1 /HPF (0-3)
[2017-07-28] MEDS: NS 1,000 ML IV ×3 (02:34)
[2017-07-28] MEDS: METOCLOPRAMIDE INJ 10MG/2ML VIAL (J2765) IV ×3 (02:34)
[2017-07-28] MEDS: ONDANSETRON 4MG/2ML VIAL (J2405) IV ×3 (03:33)
[2017-07-28] MEDS ORDERED: ALBUTEROL 90 MCG/ACT 8GM HFA INHALER INH ×3 (05:45)
[2017-07-28] MEDS ORDERED: ONDANSETRON 4MG/2ML VIAL (J2405) IV ×3 (05:45)
[2017-07-28] MEDS ORDERED: METOCLOPRAMIDE INJ 10MG/2ML VIAL (J2765) IV ×3 (05:45)
[2017-07-28] MEDS: MAG SULF 1GM/100ML (MAG RUN) 1 GM in APPROPRIATE DILUENT 1 EA IV ×3 (06:22)
[2017-07-28] MEDS: PROMETHAZINE INJ 25 MG/ML VIAL (J2550) IV ×3 (06:59)
[2017-07-28] MEDS: BUDESONIDE 0.5 MG/2 ML INHALATION SUSPENSION INH ×6 (07:45→20:00)
[2017-07-28] MEDS: POTASSIUM CHLORIDE INJ 10 MEQ in NS 1,000 ML IV ×3 (08:23)
[2017-07-28] MEDS: KCL 10MEQ/100ML SWI (KRUN) 10 MEQ in APPROPRIATE DILUENT 1 EA IV ×3 (08:23)
[2017-07-28] MEDS ORDERED: NITROFURANTOIN (MACROBID) 100 MG CAP PO ×3 (09:00)
[2017-07-28] MEDS: TIOTROPIUM INHALER/CAPSULE (SPIRIVA) INH ×3 (11:31)
[2017-07-28] MEDS: LEVOTHYROXINE 100MCG TABLET (0.1MG) PO ×3 (13:56)
[2017-07-28] MEDS: POTASSIUM CHLORIDE 10 MEQ SR TABLET PO ×3 (13:56)
[2017-07-28] MEDS: APIXABAN 5 MG TAB (ELIQUIS) PO ×6 (13:56→21:39)
[2017-07-28] MEDS: METOPROLOL TART 12.5 MG PER 1/2 TAB PO ×6 (13:59→21:41)
[2017-07-28] MEDS: AMIODARONE 100MG TABLET (PACERONE) PO ×3 (14:00)
[2017-07-28] MEDS: THIAMINE 100 MG TAB PO ×3 (14:00)
[2017-07-28] MEDS: VERAPAMIL 120 MG SR TAB PO ×6 (14:00→21:39)
[2017-07-28] MEDS: SIMVASTATIN 20 MG TAB PO ×3 (14:01)
[2017-07-28] MEDS: PANTOPRAZOLE 40MG INJ (PROTONIX) (C9113) IV ×3 (15:39)
[2017-07-29 06:54] LABS: HEMOGLOBIN 9.2 g/dl (12.0-16.0); MEAN CORPUSCULAR HEMOGLOBIN 25.3 pg (27.0-33.0); MEAN CORPUSCULAR HGB CONC 28.8 g/dl (32.0-36.5); MEAN CORPUSCULAR VOLUME 87.9 fl (80.0-96.0); PLATELET COUNT, AUTOMATED 124 10^3/uL (150-450); RED BLOOD COUNT 3.64 10^6/uL (4.00-5.40); RED CELL DISTRIBUTION WIDTH 16.1 % (11.5-14.5); WHITE BLOOD COUNT 5.8 10^3/uL (4.0-10.0)
[2017-07-29] MEDS: BUDESONIDE 0.5 MG/2 ML INHALATION SUSPENSION INH ×3 (07:17)
[2017-07-29] MEDS: TIOTROPIUM INHALER/CAPSULE (SPIRIVA) INH ×3 (07:18)
[2017-07-29 07:26] LABS: ANION GAP 6 MEQ/L (8-16); BLOOD UREA NITROGEN 20 MG/DL (7-18); CALCIUM LEVEL 8.4 MG/DL (8.8-10.2); CARBON DIOXIDE LEVEL 27 MEQ/L (21-32); CHLORIDE LEVEL 112 MEQ/L (98-107); CREATININE FOR GFR 0.95 MG/DL (0.55-1.30); GLOMERULAR FILTRATION RATE > 60.0 (>39); GLUCOSE, FASTING 74 MG/DL (70-100); MAGNESIUM LEVEL 2.6 MG/DL (1.8-2.4); POTASSIUM SERUM 4.3 MEQ/L (3.5-5.1); SODIUM LEVEL 145 MEQ/L (136-145)
[2017-07-29 08:20] LABS: FREE T4 1.27 NG/DL (0.76-1.46)
[2017-07-29] MEDS: PANTOPRAZOLE 40MG INJ (PROTONIX) (C9113) IV ×3 (08:58)
[2017-07-29] MEDS: AMIODARONE 100MG TABLET (PACERONE) PO ×3 (08:59)
[2017-07-29] MEDS: THIAMINE 100 MG TAB PO ×3 (08:59)
[2017-07-29] MEDS: SIMVASTATIN 20 MG TAB PO ×3 (09:00)
[2017-07-29] MEDS: VERAPAMIL 120 MG SR TAB PO ×3 (09:00)
[2017-07-29] MEDS: APIXABAN 5 MG TAB (ELIQUIS) PO ×3 (09:00)
[2017-07-29] MEDS: LEVOTHYROXINE 100MCG TABLET (0.1MG) PO ×3 (09:00)
[2017-07-29] MEDS: METOPROLOL TART 12.5 MG PER 1/2 TAB PO ×3 (09:00)
== END 2017-07-29 13:15 | disposition home or self-care (01) ==
LOC: M ED INP 07-28 08:29 → M ED 23:32 → M ED INP 23:35 → M MS5PR 07-28 08:29 → M ED INP 07-28 06:12 → M MS5PR 07-28 08:29
DX: R11.2 Nausea with vomiting, unspecified (principal); E87.6 Hypokalemia; J44.9 Chronic obstructive pulmonary disease, unspecified; E03.9 Hypothyroidism, unspecified; I10 Essential (primary) hypertension; I48.91 Unspecified atrial fibrillation; I27.81 Cor pulmonale (chronic); K21.9 Gastro-esophageal reflux disease without esophagitis; I34.8 Other nonrheumatic mitral valve disorders; Z79.899 Other long term (current) drug therapy; Z79.51 Long term (current) use of inhaled steroids; Z79.02 Long term (current) use of antithrombotics/antiplatelets; Z87.891 Personal history of nicotine dependence; Z88.2 Allergy status to sulfonamides; Z88.8 Allergy status to other drugs, medicaments and biological substances
CPT/HCPCS: C9113

== ENCOUNTER → 2017-10-25 | Outpatient (REF) | payer MEDICARE, OTHER | LOC: M LAB REF 12:00 | DX: J02.9 Acute pharyngitis, unspecified (principal) | CPT/HCPCS: 87081 ==

== ENCOUNTER → 2017-12-08 | Outpatient (REF) | payer MEDICARE, OTHER | LOC: M LAB REF 16:55 | DX: N39.0 Urinary tract infection, site not specified (principal) | CPT/HCPCS: 87086 ==

== ENCOUNTER → 2018-01-29 | Outpatient (CLI) | payer MEDICARE, OTHER ==
[2018-01-29 10:27] LABS: BASO % 0.2 % (0.0-1.0); EOS % 0.8 % (0.0-3.0); HEMATOCRIT 33.9 % (36.0-47.0); HEMOGLOBIN 10.3 g/dl (12.0-15.5); IMMATURE GRANULOCYTE % 0.8 % (0-3.0); LYMPH # 1.1 10^3/uL (1.5-4.5); LYMPH % 21.9 % (24.0-44.0); MEAN CORPUSCULAR HEMOGLOBIN 26.1 pg (27.0-33.0); MEAN CORPUSCULAR HGB CONC 30.4 g/dl (32.0-36.5); MONO # 1.2 10^3/uL (0.0-0.8); MONO % 25.6 % (0.0-5.0); NEUTROPHILS # 2.5 10^3/uL (1.8-7.7); NEUTROPHILS % 50.7 % (36.0-66.0); PLATELET COUNT, AUTOMATED 131 10^3/uL (150-450); RED BLOOD COUNT 3.94 10^6/uL (4.00-5.40); RED CELL DISTRIBUTION WIDTH 16.7 % (11.5-14.5); WHITE BLOOD COUNT 4.9 10^3/uL (4.0-10.0)
[2018-01-29 10:57] LABS: ALBUMIN 3.6 GM/DL (3.2-5.2); ALKALINE PHOSPHATASE 70 U/L (45-117); ALT/SGPT 8 U/L (12-78); ANION GAP 10 MEQ/L (8-16); AST/SGOT 7 U/L (7-37); BILIRUBIN,TOTAL 0.3 MG/DL (0.2-1.0); BLOOD UREA NITROGEN 29 MG/DL (7-18); CALCIUM LEVEL 7.9 MG/DL (8.8-10.2); CARBON DIOXIDE LEVEL 29 MEQ/L (21-32); CHLORIDE LEVEL 106 MEQ/L (98-107); CHOLESTEROL LEVEL 109 MG/DL (<200); CHOLESTEROL RISK RATIO 3.633 (<5); CREATININE FOR GFR 1.33 MG/DL (0.55-1.30); FREE T4 0.83 NG/DL (0.76-1.46); GLOMERULAR FILTRATION RATE 41.6 (>39); GLUCOSE, FASTING 82 MG/DL (70-100); HDL CHOLESTEROL 30 MG/DL (>40); LDL CHOLESTEROL 62 MG/DL (<100); MAGNESIUM LEVEL 2.2 MG/DL (1.8-2.4); NON-HDL-C 79 MG/DL; POTASSIUM SERUM 4.4 MEQ/L (3.5-5.1); SODIUM LEVEL 145 MEQ/L (136-145); TOTAL PROTEIN 6.6 GM/DL (6.4-8.2); TRIGLYCERIDES LEVEL 87 MG/DL (<150); URIC ACID 10.9 MG/DL (2.6-6.0)
[2018-01-29 10:58] LABS: TOTAL 25(OH) VITAMIN D 76.9 NG/ML (30.0-100.0)
== END ==
LOC: M SMT 08:36
DX: I47.1 Supraventricular tachycardia (principal); I10 Essential (primary) hypertension; M10.9 Gout, unspecified; D69.3 Immune thrombocytopenic purpura; E78.2 Mixed hyperlipidemia; E55.9 Vitamin D deficiency, unspecified; E03.9 Hypothyroidism, unspecified
CPT/HCPCS: 83735

== ENCOUNTER 2018-03-05 09:24 | Emergency (ER) | payer MEDICARE, OTHER ==
[2018-03-05] MEDS: LIDOCAINE W/EPINEPHRINE 1% 20ML VIAL SC (11:45)
== END 2018-03-05 12:30 | disposition home or self-care (01) ==
LOC: M ED 09:24
DX: S81.812A Laceration without foreign body, left lower leg, initial encounter (principal); W22.8XXA Striking against or struck by other objects, initial encounter; Y92.9 Unspecified place or not applicable; Y93.9 Activity, unspecified; Y99.9 Unspecified external cause status; I50.9 Heart failure, unspecified; J44.9 Chronic obstructive pulmonary disease, unspecified; F32.9 Major depressive disorder, single episode, unspecified; E05.90 Thyrotoxicosis, unspecified without thyrotoxic crisis or storm; Z85.850 Personal history of malignant neoplasm of thyroid; Z79.01 Long term (current) use of anticoagulants; Z79.899 Other long term (current) drug therapy; Z88.2 Allergy status to sulfonamides; Z88.1 Allergy status to other antibiotic agents; Z88.8 Allergy status to other drugs, medicaments and biological substances
CPT/HCPCS: 12034

== ENCOUNTER → 2018-03-18 | Outpatient (REF) | payer MEDICARE, OTHER | LOC: M LAB REF 13:07 | DX: S81.802D Unspecified open wound, left lower leg, subsequent encounter (principal); X58.XXXD Exposure to other specified factors, subsequent encounter; Y92.9 Unspecified place or not applicable | CPT/HCPCS: 87186 ==

== ENCOUNTER 2018-03-19 09:05 | Emergency (ER) | payer MEDICARE, OTHER ==
[2018-03-19] MEDS: LIDOCAINE 4% TOPICAL SOLN 50 ML BTL TOP (10:01)
[2018-03-19 10:07] LABS: HEMATOCRIT 31.7 % (36.0-47.0); HEMOGLOBIN 9.3 g/dl (12.0-15.5); MEAN CORPUSCULAR HEMOGLOBIN 25.1 pg (27.0-33.0); MEAN CORPUSCULAR HGB CONC 29.3 g/dl (32.0-36.5); MEAN CORPUSCULAR VOLUME 85.7 fl (80.0-96.0); PLATELET COUNT, AUTOMATED 103 10^3/uL (150-450); WHITE BLOOD COUNT 6.8 10^3/uL (4.0-10.0)
[2018-03-19 10:33] LABS: ANION GAP 8 MEQ/L (8-16); BLOOD UREA NITROGEN 35 MG/DL (7-18); CALCIUM LEVEL 7.6 MG/DL (8.8-10.2); CARBON DIOXIDE LEVEL 27 MEQ/L (21-32); CHLORIDE LEVEL 111 MEQ/L (98-107); CREATININE FOR GFR 1.28 MG/DL (0.55-1.30); GLOMERULAR FILTRATION RATE 43.5 (>39); GLUCOSE, FASTING 93 MG/DL (70-100); POTASSIUM SERUM 4.6 MEQ/L (3.5-5.1); SODIUM LEVEL 146 MEQ/L (136-145)
[2018-03-19 10:39] LABS: ADD MANUAL DIFFER YES; DIFF SLIDE NUMBER 164; POSITIVE DIFF POS FLAG
[2018-03-19 10:49] LABS: BANDS 1 % (< 11); LYMPHOCYTES 41 % (16-52); METAMYELOCYTES 5 % (0-0); MICROCYTOSIS 1+; MONOCYTES 4 % (0-8); MYELOCYTES 1 % (0-0); NEUTROPHILS 48 % (35-75); PLATELET ESTIMATE DECREASED (NORMAL)
[2018-03-19 10:50] LABS: HYPOCHROMASIA 1+; TOXIC VACUOLATION 3+
== END 2018-03-19 11:20 | disposition home or self-care (01) ==
LOC: M ED 09:05
DX: I96 Gangrene, not elsewhere classified (principal); D69.6 Thrombocytopenia, unspecified; I50.9 Heart failure, unspecified; I10 Essential (primary) hypertension; E78.5 Hyperlipidemia, unspecified; J44.9 Chronic obstructive pulmonary disease, unspecified; K21.9 Gastro-esophageal reflux disease without esophagitis; M54.9 Dorsalgia, unspecified; F32.9 Major depressive disorder, single episode, unspecified; E03.9 Hypothyroidism, unspecified; Z85.850 Personal history of malignant neoplasm of thyroid; Z79.899 Other long term (current) drug therapy; Z88.2 Allergy status to sulfonamides; Z88.1 Allergy status to other antibiotic agents; Z88.8 Allergy status to other drugs, medicaments and biological substances
CPT/HCPCS: 73630

== ENCOUNTER → 2018-03-26 | Outpatient (CLI) | payer MEDICARE, OTHER ==
[2018-03-26 13:40] LABS: CALCIUM LEVEL 8.8 MG/DL (8.8-10.2)
== END ==
LOC: M SMT 10:00
DX: M81.0 Age-related osteoporosis without current pathological fracture (principal)

== ENCOUNTER → 2018-03-26 | Outpatient (CLI) | payer MEDICARE, OTHER ==
[2018-03-26 13:45] LABS: ALBUMIN 3.4 GM/DL (3.2-5.2); ALBUMIN/GLOBULIN RATIO 1.17 (1.00-1.93); ALKALINE PHOSPHATASE 69 U/L (45-117); ALT/SGPT 9 U/L (12-78); ANION GAP 8 MEQ/L (8-16); AST/SGOT 7 U/L (7-37); BILIRUBIN,TOTAL 0.4 MG/DL (0.2-1.0); BLOOD UREA NITROGEN 17 MG/DL (7-18); CALCIUM LEVEL 8.7 MG/DL (8.8-10.2); CARBON DIOXIDE LEVEL 28 MEQ/L (21-32); CHLORIDE LEVEL 105 MEQ/L (98-107); CREATININE FOR GFR 1.27 MG/DL (0.55-1.30); GLOMERULAR FILTRATION RATE 43.9 (>39); GLUCOSE, FASTING 94 MG/DL (70-100); MAGNESIUM LEVEL 2.4 MG/DL (1.8-2.4); POTASSIUM SERUM 3.8 MEQ/L (3.5-5.1); SODIUM LEVEL 141 MEQ/L (136-145); TOTAL PROTEIN 6.3 GM/DL (6.4-8.2)
== END ==
LOC: M SMT 10:04
DX: I50.32 Chronic diastolic (congestive) heart failure (principal); I48.0 Paroxysmal atrial fibrillation; M81.0 Age-related osteoporosis without current pathological fracture
CPT/HCPCS: 82310

== ENCOUNTER → 2018-05-27 | Outpatient (CLI) | payer MEDICARE, OTHER ==
[~2018-05-27] MED LIST changes: +ALLO100T PO; +CLIN150C14 PO; -DRIS50002 PO; +DRIS50003 PO; +FOLI1TAB11 PO; -FOLI1TAB4 PO; -LASI40TA PO; +LASI40TA9 PO; +MACR100C43 PO; +METO25TA4 PO; -QUIN1TAB15 PO; +QUIN1TAB4 PO; +SPIR-10 PO; -SPIR25TA2 PO; +VERA120T2 PO; -VITA100T2 PO; +VITA100T8 PO; +ZOFR4SOL PO; -ZYVO100T PO; +ZYVO1TAB PO
--- NOTE | 2018-05-27 15:18 | REP ---
LOW-DOSE LUNG SCREENING CT: 05/27/2018 COMPARISON: CT 06/10/2016, chest x-ray 03/04/2017, 09/12/2016. CLINICAL HISTORY: Nicotine dependence. TECHNIQUE: Standard low-dose CT lung screening images were obtained with only lung windows presented per protocol. FINDINGS: The lung mixon are well inflated. Some minor posterior scarring in the right upper lung zone on image 22 as on previous studies. Minimal apical pleuroparenchymal scarring bilaterally, stable hyperinflation and COPD noted. Some mild cervical bronchiectatic change in lower lung zones. On image 74, there is a 9.5 mm nodule in the right lower lobe just above the diaphragm. Previous study measured 9.4 mm, unchanged. I also see this on a CT chest 12/26/[address] abdomen 03/09/2014. It is unchanged on all of these. Small peripheral nodule on the previous study in the right mid lung zone is resolved on today's exam. I see no new parenchymal nodules on the left or right side. IMPRESSION: 1. A 9 mm solid nodule right lower lobe just above the diaphragm is stable for over 4 years on multiple chest and abdominal CTs. Lesions of this size that are stable would be considered Lung-RADS category 2, very low likelihood of malignancy. Recommendation to continue annual screening in 12 months. No other significant or new finding. Electronically Signed by Toby Acevedo MD 05/27/2018 08:51 P
== END ==
LOC: M RAD 09:38
PROVIDERS: ATTEND Internal Medicine Pulmonary Disease
DX: Z12.2 Encounter for screening for malignant neoplasm of respiratory organs (principal); Z87.891 Personal history of nicotine dependence; R91.1 Solitary pulmonary nodule

== ENCOUNTER → 2018-07-11 | Outpatient (REF) | payer MEDICARE, OTHER ==
[~2018-07-11] MED LIST changes: +ATIV1TAB7 PO
[2018-07-11 13:20] LABS: FREE T4 1.23 NG/DL (0.76-1.46); THYROID STIMULATING HORMONE 7.26 uIU/ML (0.358-3.740)
== END ==
LOC: M LABDRWAD 12:20
PROVIDERS: ATTEND Physician Assistant
DX: E03.9 Hypothyroidism, unspecified (principal)

== ENCOUNTER → 2018-08-09 | Outpatient (REF) | payer MEDICARE, OTHER | LOC: M LAB REF 15:50 | PROVIDERS: ATTEND Physician Assistant | DX: N39.0 Urinary tract infection, site not specified (principal) ==

== ENCOUNTER → 2018-09-07 | Outpatient (REF) | payer MEDICARE, OTHER ==
[~2018-09-07] MED LIST changes: -/QUIN20TA OR; -/QUIN20TA PO; -/TIOT18INH INH; +ACCU1TAB2 OR; +ACCU1TAB2 PO; +ALBU8.5H IH; +D-50CAP PO; -ERGO8000 PO; +ERGO80006 PO; +PRED-351 PO; -PRED10TA PO; +VERA120T4 PO; -VERA1TAB10 PO; +[UNRECOGNIZED DRUG - CODE] PO
== END ==
LOC: M LAB REF 09:51
PROVIDERS: ATTEND Physician Assistant
DX: R30.0 Dysuria (principal)

== ENCOUNTER → 2018-09-18 | Outpatient (REF) | payer MEDICARE, OTHER ==
[2018-09-18 13:36] LABS: CALCIUM LEVEL 8.4 MG/DL (8.8-10.2)
[2018-09-18 14:12] LABS: TOTAL 25(OH) VITAMIN D 63.1 NG/ML (30.0-100.0)
== END ==
LOC: M LAB REF 12:54
PROVIDERS: ATTEND Nurse Practitioner Family
DX: M81.0 Age-related osteoporosis without current pathological fracture (principal); E55.9 Vitamin D deficiency, unspecified; I48.0 Paroxysmal atrial fibrillation

== ENCOUNTER → 2018-09-18 | Outpatient (REF) | payer MEDICARE, OTHER ==
[2018-09-18 13:40] LABS: HEMATOCRIT 37.6 % (36.0-47.0); HEMOGLOBIN 10.8 g/dl (12.0-15.5); MEAN CORPUSCULAR HEMOGLOBIN 25.2 pg (27.0-33.0); MEAN CORPUSCULAR HGB CONC 28.7 g/dl (32.0-36.5); MEAN CORPUSCULAR VOLUME 87.6 fl (80.0-96.0); PLATELET COUNT, AUTOMATED 110 10^3/uL (150-450); RED BLOOD COUNT 4.29 10^6/uL (4.00-5.40); WHITE BLOOD COUNT 4.5 10^3/uL (4.0-10.0)
[2018-09-18 13:50] LABS: ALBUMIN 3.7 GM/DL (3.2-5.2); BILIRUBIN,TOTAL 0.4 MG/DL (0.2-1.0); CALCIUM LEVEL 7.9 MG/DL (8.8-10.2); CREATININE FOR GFR 1.16 MG/DL (0.55-1.30); GLOMERULAR FILTRATION RATE 48.6 (>39); MAGNESIUM LEVEL 2.5 MG/DL (1.8-2.4); POTASSIUM SERUM 4.3 MEQ/L (3.5-5.1); TOTAL PROTEIN 6.3 GM/DL (6.4-8.2)
== END ==
LOC: M LABDRWAD 13:19 → M LAB REF 13:19
PROVIDERS: ATTEND Physician Assistant
DX: I48.0 Paroxysmal atrial fibrillation (principal)

== ENCOUNTER → 2019-01-20 | Outpatient (REF) | payer MEDICARE, OTHER ==
[~2019-01-20] MED LIST changes: +PROL60SO SC
[2019-01-20 14:14] LABS: CALCIUM LEVEL 8.6 MG/DL (8.8-10.2); CREATININE FOR GFR 1.21 MG/DL (0.55-1.30); GLOMERULAR FILTRATION RATE 46.3 (>39); MAGNESIUM LEVEL 2.2 MG/DL (1.8-2.4)
== END ==
LOC: M LABDRWAD 13:39
PROVIDERS: ATTEND Physician Assistant
DX: I50.32 Chronic diastolic (congestive) heart failure (principal); I48.0 Paroxysmal atrial fibrillation

== ENCOUNTER 2019-03-03 10:18 | Day surgery (SDC) | payer MEDICARE ==
[~2019-03-03] VITALS: Ht 160 cm; Wt 71.2 kg
[~2019-03-03 10:18] MED LIST changes: +BREO1INH3 INH; +NS 1,000 ML IV ONE
[2019-03-03] MEDS ORDERED: LIDOCAINE 2% INJ 100 MG/5 ML SDV (FOR ANES.) As Ordered ONE (12:30)
[2019-03-03] MEDS ORDERED: PROPOFOL 200 MG/20 ML VIAL As Ordered ONE (12:30)
[2019-03-03] MEDS ORDERED: GLYCOPYRROLATE INJ 0.2 MG/ML 2 ML VIAL As Ordered ONE (12:43)
--- NOTE | 2019-03-03 13:21 | ROOR ---
Patient Name: Yaritza Fernandez Procedure Date: 03/03/2019 12:26 PM Date of : 1945 Age: 73 Room: [facility] Gender: Female Note Status: Finalized Procedure: Upper GI endoscopy Indications: Dysphagia Providers: Gus Betancourt MD Referring MD: MG Gray Requesting Provider: Medicines: Monitored Anesthesia Care Complications: No immediate complications. Procedure: Pre-Anesthesia Assessment: - Prior to the procedure, a History and Physical was performed, and patient medications and allergies were reviewed. The patient is competent. The risks and benefits of the procedure and the sedation options and risks were discussed with the patient. All questions were answered and informed consent was obtained. Patient identification and proposed procedure were verified by the physician, the nurse and the anesthesiologist in the procedure room. Mental Status Examination: alert and oriented. Airway Examination: normal oropharyngeal airway and neck mobility. Respiratory Examination: clear to auscultation. CV Examination: normal. Prophylactic Antibiotics: The patient does not require prophylactic antibiotics. Prior Anticoagulants: The patient has taken Eliquis (apixaban), last dose was 3 days prior to procedure. ASA Grade Assessment: III - A patient with severe systemic disease. After reviewing the risks and benefits, the patient was deemed in satisfactory condition to undergo the procedure. The anesthesia plan was to use monitored anesthesia care (MAC). Immediately prior to administration of medications, the patient was re-assessed for adequacy to receive sedatives. The heart rate, respiratory rate, oxygen saturations, blood pressure, adequacy of pulmonary ventilation, and response to care were monitored throughout the procedure. The physical status of the patient was re-assessed after the procedure. The Endoscope was introduced through the mouth, and advanced to the second part of duodenum. The upper GI endoscopy was accomplished without difficulty. The patient tolerated the procedure well. Findings: LA Grade B (one or more mucosal breaks greater than 5 mm, not extending between the tops of two mucosal folds) esophagitis with no bleeding was found in the distal esophagus. Biopsies were taken with a cold forceps for histology. Biopsies were obtained from the proximal and distal esophagus with cold forceps for histology of suspected eosinophilic esophagitis. Verification of patient identification for the specimen was done by the physician and nurse using the patient's name, date and medical record number. Estimated blood loss was minimal. One benign-appearing, intrinsic moderate (circumferential scarring or stenosis; an endoscope may pass) stenosis was found in the distal esophagus. The stenosis was traversed. This was biopsied with a cold forceps for histology. A medium-sized hiatal hernia was present. Scattered mild inflammation characterized by erythema and granularity was found in the gastric body and in the gastric antrum. Biopsies were taken with a cold forceps for Helicobacter pylori testing. The duodenal bulb and second portion of the duodenum were normal. There was a small lipoma in the third portion of the duodenum. Impression: - LA Grade B reflux esophagitis. Biopsied. - Benign-appearing esophageal stenosis. Biopsied. - Medium-sized hiatal hernia. - Gastritis. Biopsied. - Normal duodenal bulb and second portion of the duodenum. - Duodenal lipoma. Recommendation: - Patient has a contact number available for emergencies. The signs and symptoms of potential delayed complications were discussed with the patient. Return to normal activities tomorrow. Written discharge instructions were provided to the patient. - Chopped diet. - Continue present medications. - Use Protonix (pantoprazole) 40 mg PO twice daily - to be taken in morning (1/2 hour before breakfast) and at bedtime ( atleast 3 hours after last meal) for 3 months. - Follow an antireflux regimen. - Resume Eliquis (apixaban) at prior dose tomorrow. Refer to primary physician for further adjustment of therapy. - Await pathology results. - Repeat upper endoscopy in 3 months to check healing and to evaluate the response to therapy. - Return to GI clinic in [facility] (address [address], [address], [place], [facility]) in 4 -- 6 weeks. Please call GI clinic @ [phone] for apppointment date and time. - Return to primary care physician. Gus Betancourt MD Gus Betancourt MD 03/03/2019 1:21:12 PM Electronically signed by Gus Betancourt MD Number of Addenda: 0 Note Initiated On: 03/03/2019 12:26 PM Estimated Blood Loss: Estimated blood loss was minimal.
--- NOTE | 2019-03-03 13:32 | ROOR ---
Patient Name: Yaritza Fernandez Procedure Date: 03/03/2019 12:27 PM Date of : 1945 Age: 73 Room: [facility] Gender: Female Note Status: Finalized Procedure: Colonoscopy Indications: Screening for colorectal malignant neoplasm Providers: Gus Betancourt MD Referring MD: MG Gray Requesting Provider: Medicines: Monitored Anesthesia Care Complications: No immediate complications. Procedure: Pre-Anesthesia Assessment: - Prior to the procedure, a History and Physical was performed, and patient medications and allergies were reviewed. The patient is competent. The risks and benefits of the procedure and the sedation options and risks were discussed with the patient. All questions were answered and informed consent was obtained. Patient identification and proposed procedure were verified by the physician, the nurse and the anesthesiologist in the procedure room. Mental Status Examination: alert and oriented. Airway Examination: normal oropharyngeal airway and neck mobility. Respiratory Examination: clear to auscultation. CV Examination: normal. Prophylactic Antibiotics: The patient does not require prophylactic antibiotics. Prior Anticoagulants: The patient has taken Eliquis (apixaban), last dose was 3 days prior to procedure. ASA Grade Assessment: III - A patient with severe systemic disease. After reviewing the risks and benefits, the patient was deemed in satisfactory condition to undergo the procedure. The anesthesia plan was to use monitored anesthesia care (MAC). Immediately prior to administration of medications, the patient was re-assessed for adequacy to receive sedatives. The heart rate, respiratory rate, oxygen saturations, blood pressure, adequacy of pulmonary ventilation, and response to care were monitored throughout the procedure. The physical status of the patient was re-assessed after the procedure. The Colonoscope was introduced through the anus and advanced to the cecum, identified by appendiceal orifice and ileocecal valve. The Colonoscope was introduced through the anus and advanced to the cecum, identified by appendiceal orifice and ileocecal valve. The colonoscopy was performed without difficulty. The patient tolerated the procedure well. The quality of the bowel preparation was fair except the cecum was poor. The ileocecal valve, appendiceal orifice, and rectum were photographed. Scope insertion time was 6 minutes. Scope withdrawal time was 10 minutes. The total duration of the procedure was 17 minutes. Findings: The perianal and digital rectal examinations were normal. The colon (entire examined portion) was moderately tortuous. Advancing the scope required withdrawing the scope and replacing with the enteroscope. Multiple small and large-mouthed diverticula were found from sigmoid to descending colon. There was narrowing of the colon in association with the diverticular opening. There was no evidence of diverticular bleeding. Non-bleeding external and internal hemorrhoids were found during retroflexion. The hemorrhoids were medium-sized. Diffuse mild mucosal changes characterized by altered vascularity, erythema and mucus were found from transverse colon to ascending colon. Biopsies for histology were taken with a cold forceps from the ascending colon, transverse colon and descending colon for evaluation of microscopic colitis. Verification of patient identification for the specimen was done by the physician and nurse using the patient's name, date and medical record number. Estimated blood loss was minimal. Impression: - Tortuous colon. - Moderate diverticulosis from sigmoid to descending colon. There was narrowing of the colon in association with the diverticular opening. There was no evidence of diverticular bleeding. - Non-bleeding external and internal hemorrhoids. - Diffuse mild mucosal changes were found from transverse colon to ascending colon secondary to colitis. Biopsied. Recommendation: - Patient has a contact number available for emergencies. The signs and symptoms of potential delayed complications were discussed with the patient. Return to normal activities tomorrow. Written discharge instructions were provided to the patient. - High fiber diet. - Continue present medications. - Await pathology results. - Repeat colonoscopy in 1 year because the bowel preparation was poor. - Return to GI clinic in [facility] (address [address], [address], [place], [facility]) in 4 -- 6 weeks. Please call GI clinic @ [phone] for apppointment date and time. - Return to primary care physician. Gus Betancourt MD Gus Betancourt MD 03/03/2019 1:32:30 PM Electronically signed by Gus Betancourt MD Number of Addenda: 0 Note Initiated On: 03/03/2019 12:27 PM Estimated Blood Loss: Estimated blood loss was minimal.
[2019-03-03 13:55] VITALS: BP 109/57
== END 2019-03-03 14:06 | disposition home or self-care (01) ==
LOC: M OPP 10:18
PROVIDERS: ATTEND Internal Medicine Gastroenterology
DX: Z12.11 Encounter for screening for malignant neoplasm of colon (principal); K64.8 Other hemorrhoids; K52.9 Noninfective gastroenteritis and colitis, unspecified; Q43.8 Other specified congenital malformations of intestine; K21.0 Gastro-esophageal reflux disease with esophagitis; K22.2 Esophageal obstruction; K44.9 Diaphragmatic hernia without obstruction or gangrene; K29.70 Gastritis, unspecified, without bleeding; D17.5 Benign lipomatous neoplasm of intra-abdominal organs; R13.10 Dysphagia, unspecified; Z79.899 Other long term (current) drug therapy; Z88.0 Allergy status to penicillin; Z88.1 Allergy status to other antibiotic agents; Z88.2 Allergy status to sulfonamides; Z88.5 Allergy status to narcotic agent; Z88.8 Allergy status to other drugs, medicaments and biological substances; Z87.891 Personal history of nicotine dependence

== ENCOUNTER → 2019-03-30 | Outpatient (REF) | payer MEDICARE ==
[~2019-03-30] MED LIST changes: -NS 1,000 ML IV ONE
== END ==
LOC: M LABDRWAD 12:37
PROVIDERS: ATTEND Internal Medicine Endocrinology, Diabetes & Metabolism
DX: M81.0 Age-related osteoporosis without current pathological fracture (principal)

== ENCOUNTER → 2019-03-30 | Outpatient (REF) | payer MEDICARE ==
[2019-03-30 14:01] LABS: ALBUMIN 3.5 GM/DL (3.2-5.2); BILIRUBIN,DIRECT 0.1 MG/DL (0.0-0.2); BILIRUBIN,TOTAL 0.4 MG/DL (0.2-1.0); TOTAL PROTEIN 6.8 GM/DL (6.4-8.2)
== END ==
LOC: M LABDRWAD 12:35
PROVIDERS: ATTEND Physician Assistant
DX: I48.0 Paroxysmal atrial fibrillation (principal)

== ENCOUNTER → 2019-03-30 | Outpatient (REF) | payer MEDICARE ==
[2019-03-30 13:28] LABS: ALBUMIN 3.3 GM/DL (3.2-5.2); BILIRUBIN,TOTAL 0.4 MG/DL (0.2-1.0); CALCIUM LEVEL 8.1 MG/DL (8.8-10.2); CHOLESTEROL RISK RATIO 3.032 (<5); CREATININE FOR GFR 1.28 MG/DL (0.55-1.30); FREE T4 1.2 NG/DL (0.76-1.46); GLOMERULAR FILTRATION RATE 43.4 (>39); THYROID STIMULATING HORMONE 11.7 uIU/ML (0.358-3.740); TOTAL PROTEIN 6.6 GM/DL (6.4-8.2)
[2019-03-30 13:29] LABS: TOTAL 25(OH) VITAMIN D 60.2 NG/ML (30.0-100.0)
== END ==
LOC: M LABDRWAD 12:34
PROVIDERS: ATTEND Physician Assistant
DX: E03.9 Hypothyroidism, unspecified (principal); I10 Essential (primary) hypertension; E78.2 Mixed hyperlipidemia; E55.9 Vitamin D deficiency, unspecified; I48.0 Paroxysmal atrial fibrillation; M81.0 Age-related osteoporosis without current pathological fracture

== ENCOUNTER 2019-04-10 17:33 | Inpatient (IN) | payer MEDICARE ==
[~2019-04-10] VITALS: Ht 160 cm; Wt 80.7 kg
[~2019-04-10 17:33] MED LIST changes: -ALBU8.5H IH; +ALBU8.5H INH; -SIMV20TA2 PO; +SIMV20TA22 PO
[2019-04-10] MEDS ORDERED: VITA100T28 PO (18:01)
[2019-04-10] MEDS ORDERED: PANT40TA3 PO (18:01)
[2019-04-10] MEDS ORDERED: NORCO, ANEXSIA 5/325MG TABLET (HYDROcodone/ACETAMINOPHEN) PO ONE (18:15)
[2019-04-10] MEDS ORDERED: MORPHINE 4 MG/ML 1ML VIAL/SYRINGE (J2270) IV ONE (19:15)
[2019-04-10 19:20] LABS: HEMATOCRIT 33.6 % (36.0-47.0); MEAN CORPUSCULAR HEMOGLOBIN 27.8 pg (27.0-33.0); MEAN CORPUSCULAR HGB CONC 29.8 g/dl (32.0-36.5); MEAN CORPUSCULAR VOLUME 93.3 fl (80.0-96.0); WHITE BLOOD COUNT 6.1 10^3/uL (4.0-10.0)
[2019-04-10 19:28] LABS: INR 1.84
[2019-04-10 19:29] LABS: PARTIAL THROMBOPLASTIN TIME 40.8 SECONDS (25.0-38.4)
[2019-04-10 19:41] LABS: PLATELET COUNT, AUTOMATED 92 10^3/uL (150-450)
[2019-04-10 19:46] LABS: ATYPICAL LYMPH 3 % (0-5); BASOPHILS 1 % (0-1); LYMPHOCYTES 12 % (16-44); MONOCYTES 32 % (0-5); NEUTROPHILS 50 % (28-66)
[2019-04-10 19:47] LABS: PLATELET ESTIMATE DECREASED (NORMAL)
[2019-04-10 19:49] LABS: CALCIUM LEVEL 6.1 MG/DL (8.8-10.2); CREATININE FOR GFR 1.19 MG/DL (0.55-1.30); GLOMERULAR FILTRATION RATE 47.2 (>39); POTASSIUM SERUM 3.4 MEQ/L (3.5-5.1)
[2019-04-10] MEDS ORDERED: VITA1CAP25 PO (19:52)
[2019-04-10] MEDS ORDERED: LEVO137T2 PO (19:52)
[2019-04-10] MEDS ORDERED: MACR100C43 PO (19:53)
[2019-04-10] MEDS ORDERED: NITR100C2 PO (19:54)
--- NOTE | 2019-04-10 20:10 | REPVR ---
PROCEDURE INFORMATION: Exam: CT Left Lower Extremity Without Contrast, Hip Exam date and time: 04/10/2019 7:58 PM Age: 73 years old Clinical history: Injury or trauma; Fall; Initial encounter; Fracture, traumatic; Displaced; Hip; Left; Additional info: Tr TECHNIQUE: Imaging protocol: CT of the Left lower extremity without contrast was performed. Exam focused on the hip. Radiation optimization: All CT scans at this facility use at least one of these dose optimization techniques: automated exposure control; mA and/or kV adjustment per patient size (includes targeted exams where dose is matched to clinical indication); or iterative reconstruction. COMPARISON: No relevant prior studies available. FINDINGS: Bones/joints: Osteoporosis. Acute comminuted fracture left femoral neck and intertrochanteric region with posterior displacement of the proximal femoral shaft relative to the femoral neck. Degenerative changes at the hip joint. Soft tissues: Soft tissue hematoma surrounds the fracture site. IMPRESSION: 1. Acute comminuted fracture left femoral neck and intertrochanteric region with posterior displacement of the proximal femoral shaft relative to the femoral neck. 2. Soft tissue hematoma surrounds the fracture site. Electronically signed by: Edilson Tao On 04/10/2019 20:10:22 PM
[2019-04-10] MEDS ORDERED: LEVALBUTEROL 1.25 MG/0.5 ML CONCENTRATE NEB INH PRN (20:15)
[2019-04-10] MEDS ORDERED: MAALOX 30 ML SUSP *UDC PO PRN (20:15)
[2019-04-10] MEDS ORDERED: HEPARIN SOD (PORCINE) 5000 UNITS/ML VIAL SC SCH (20:15)
[2019-04-10] MEDS ORDERED: MOM 30ML SUSPENSION UDC PO PRN (20:15)
[2019-04-10 20:45] LABS: ALBUMIN 2.8 GM/DL (3.2-5.2); BILIRUBIN,DIRECT 0.2 MG/DL (0.0-0.2); BILIRUBIN,TOTAL 0.4 MG/DL (0.2-1.0); TOTAL PROTEIN 5.9 GM/DL (6.4-8.2)
--- NOTE | 2019-04-10 20:57 | HPEPDOC ---
General Date of Admission 04/10/19 Date of Service: Apr 10, 2019 Chief Complaint The patient is a 73-year-old female admitted with a reason for visit of Leg Swelling. Source: Patient, RN/, Old records History of Present Illness 73 year old female with PMH of COPD, Afib, Hypertension, Hyperlipidemia, Reflux esophagitis ,Hiatal hernia, Gastritis, Hypothyroid, gout, osteoporosis, Benign esophageal stenosis, diverticulosis, internal hemorrhoids, iron def anemia, Pulmonary nodule stable had a mechanical fall today at around 4 pm. She slipped on ice on her deck then dragged herself into the house to get her phone. She did not hit her head and did not loose consciousness but she could not stand up. In the ED she was found to have left femoral neck fracture. CT of the extremity showed . Acute comminuted fracture left femoral neck and intertrochanteric region with posterior displacement of the proximal femoral shaft relative to the femoral neck. Soft tissue hematoma surrounds the fracture site. She complained of pain 7/10 in the left hip and thigh, dull aching with muscle spasms with minor movements. No radiation. Home Medications Scheduled Allopurinol (Allopurinol) 100 Mg Tab, 100 MG PO DAILY, (Reported) Amiodarone HCl (Pacerone) 100 Mg Tab, 200 MG PO DAILY, (Reported) Apixaban (Eliquis) 5 Mg Tab, 5 MG PO BID, (Reported) Cholecalciferol (Vitamin D3) (Vitamin D3) 50,000 Unit Capsule, 50,000 UNIT PO Q30D, (Reported) TAKES ON THE FIRST SATURDAY OF THE MONTH Denosumab Injection (Prolia) 60 Mg/1 Ml Syringe, 60 MG SC [id number], (Reported) Fluticasone/Vilanterol (Breo Ellipta 200-25 Mcg INH) 1 Each Blst.w.dev, 1 PUFF INH DAILY, (Reported) Folic Acid (Folic Acid) 1 Mg Tab, 1 MG PO DAILY, (Reported) Furosemide (Lasix) 40 Mg Tab, 40 MG PO DAILY, (Reported) Levothyroxine Sodium (Levothyroxine Sodium) 137 Mcg Tablet, 137 MCG PO DAILY, (Reported) Metoprolol Tartrate (Metoprolol Tartrate) 25 Mg Tab, 12.5 MG PO BID, (Reported) Nitrofurantoin Monohyd/M-Cryst (Nitrofurantoin [place]-Mcr 100 mg) 100 Mg Capsule, 100 MG PO DAILY, (Reported) Pantoprazole Sodium (Pantoprazole Sodium) 40 Mg Tablet.dr, 40 MG PO BID, (Reported) Simvastatin (Simvastatin) 20 Mg Tab, 20 MG PO DAILY, (Reported) Spironolactone (Spironolactone) 25 Mg Tab, 12.5 MG PO DAILY, (Reported) Thiamine Mononitrate (Vit B1) (Vitamin B-1) 100 Mg Tablet, 100 MG PO DAILY, (Reported) Tiotropium [place] (Spiriva) 18 Mcg Cap, 2 PUFFS INH DAILY, (Reported) Verapamil HCl (Verapamil ER) 120 Mg Tab, 120 MG PO BID, (Reported) Scheduled PRN Albuterol Sulfate (Albuterol Sulfate Hfa) 8.5 Gm Hfa.aer.ad, 1 INH INH q4-6h PRN for SOB/WHEEZING, (Reported) Allergies Coded Allergies: tetracycline (Verified Allergy, Severe, swelling, peeling of the tongue, 02/19/19) zolpidem (Verified Allergy, Severe, respiratory distress, 02/19/19) Sulfa (Sulfonamide Antibiotics) (Verified Allergy, Intermediate, hives, 02/19/19) Penicillins (Verified Adverse Reaction, Intermediate, N/V, 02/19/19) tramadol (Verified Adverse Reaction, Intermediate, N/V, 02/19/19) Past Medical History Medical History COPD, Afib, Hypertension, Hyperlipidemia, Reflux esophagitis ,Hiatal hernia, Gastritis, Hypothyroid, gout, osteoporosis, Benign esophageal stenosis, diverticulosis, internal hemorrhoids, iron def anemia, Pulmonary nodule stable, Surgical History tonsillectomy and adenoidectomy, appendectomy, total thyroidectomy Family History Significant Family History: Cancer (sister colon cancer), Hypertension (father and mother) Social History * Smoker: former Smoker Alcohol: Denies Drugs: denies A-FIB/CHADSVASC A-FIB History Current/History of A-Fib/PAF?: Yes Current PO Anticoag Therapy: Yes Review of Systems Constitutional: Denies: Chills, Fever, Night Sweats Eyes: Denies: Pain, Vision change ENT: Reports: Post Nasal Drip Skin: Denies: Rash, Lesions, Breakdown Pulmonary: Reports: Cough (chronic) Cardiovascular: Denies: Chest Pain, Palpitations, Orthopnea, Paroxysmal Noc. Dyspnea, Lt Headedness Gastrointestinal: Denies: Nausea, Vomiting, Abdominal Pain, Diarrhea Genitourinary: Denies: Dysuria, Frequency, Incontinence, Retention Hematologic: Denies: Bruising, Bleeding Excessively Musculoskeletal: Reports: Leg Pain (left leg), Joint Pain (left hip) Neurological: Reports: Weakness (left leg); Denies: Numbness, Change in speech, Confusion Physical Examination General Exam: Positive: Alert, Cooperative, No Acute Distress Eye Exam: Positive: PERRLA, Conjunctiva & lids normal, EOMI; Negative: Sclera icteric ENT Exam: Positive: Atraumatic, Mucous membr. moist/pink, Pharynx Normal Neck Exam: Positive: Supple; Negative: JVD, thyromegaly Chest Exam: Positive: Clear to auscultation, Normal air movement Heart Exam: Positive: Rate Normal, Irregular Rhythm, Normal S1, Normal S2; Negative: Murmurs, Rubs Telemetry: Positive: Atrial fibrillation Abdomen Exam: Positive: Normal bowel sounds, Soft; Negative: Tenderness, Hepatospenomegaly Extremity Exam: Negative: Clubbing, Cyanosis, Edema Skin Exam: Positive: Nl turgor and temperature; Negative: Breakdown, Lesion Neuro Exam: Positive: Normal Speech, Normal Tone Vital Signs Vital Signs Date Time Temp Pulse Resp B/P (MAP) Pulse Ox O2 Delivery O2 Flow Rate FiO2 04/10/19 19:32 83 20 90 Room Air 04/10/19 18:06 98.2 04/10/19 17:38 102/52 Laboratory Data Labs 24H Laboratory Tests 2 04/10/19 19:07: Monocytes # (Auto) , Nucleated Red Blood Cells % (auto) 0.0, Neutrophils 50, Band Neutrophils 2, Lymphocytes (Manual) 12L, Monocytes (Manual) 32H, Basophils (Manual) 1, Atypical Lymphocytes 3, Platelet Estimate DECREASED, Immature Platelet Fraction 7.7, Prothrombin Time 21.0H, Prothromb Time International Ratio 1.84, Activated Partial Thromboplast Time 40.8H, Anion Gap 9, Glomerular Filtration Rate 47.2, Calcium Level 6.1L CBC/BMP Laboratory Tests 04/10/19 19:07 Assessment/Plan 73 year old female with PMH of COPD, Afib, Hypertension, Hyperlipidemia, Reflux esophagitis ,Hiatal hernia, Gastritis, Hypothyroid, gout, osteoporosis, Benign esophageal stenosis, diverticulosis, internal hemorrhoids, iron def anemia, Pulmonary nodule stable had a mechanical fall today at around 4 pm. She slipped on ice on her deck then dragged herself into the house to get her phone. She did not hit her head and did not loose consciousness but she could not stand up. In the ED she was found to have left femoral neck fracture. CT of the extremity showed . Acute comminuted fracture left femoral neck and intertrochanteric r egion with posterior displacement of the proximal femoral shaft relative to the femoral neck. Soft tissue hematoma surrounds the fracture site. Left femoral neck fracture bed rest, hold eliquis. Hold lasix and spironolactone. pain control with morphine prn IVF. PRBC transfusion prn. ortho consult. Will have to post pone surgery at least 24 hours as patient is on eliquis . last dose was on the morning of 04/10 Medical clearance No h/o cad or cva or TIA, no dm. Has Ckd stage 3, no history of CHF however patient is on diuretics may have diastolic chf. 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 this has to be discussed with anesthesiologist. Patient is high cardiac risk for the proposed procedure due to CHF and CKD. Also increased risk of bleeding with her low platelets. Patient is medically optimized for the procedure at this point Needs to be off eliquis for at least 24 hours prior to surgery COPD continue home meds, symbicort in place of breo xopenex prn Paroxysmal Afib now in sinus rhythm continue metoprolol, amiodarone hold eliquis Hypertension Now BP soft will give IVF. continue metoprolol with hold parameters Hold verapamil. Gastritis/reflux/hiatal hernia continue pantoprazole Hypothyroid continue synthroid Gout continue allopurinol Thrombocytopenia possibly due to ITP as per hematology hold heparin Hypocalcemia and hypokalemia will replace k and calcium check liver panel and albumin level. Monocytosis this is new patient did have a bone marrow biopsy earlier this year which was negative for any hematological malignancy. follow up Dr Wagoner. DVT prophylaxis sequentials. Plan / VTE VTE Prophylaxis Ordered?: Yes YANN CARROLL MD Apr 10, 2019 20:57
[2019-04-10] MEDS ORDERED: VERAPAMIL 120 MG SR TAB PO SCH (21:00)
[2019-04-10] MEDS ORDERED: POTASSIUM CHLORIDE 10 MEQ SR TABLET PO ONE (21:00)
[2019-04-10] MEDS ORDERED: CALCIUM GLUCONATE 1,000 MG in D5W MINI-BAG PLUS 100 ML IV ONE (21:15)
[2019-04-10 21:35] VITALS: BP 90/58
[2019-04-10] MEDS: MORPHINE 2 MG/ML 1ML VIAL (J2270) IV PRN (21:48)
[2019-04-10] MEDS: METOPROLOL TART 12.5 MG PER 1/2 TAB PO SCH (21:50)
[2019-04-10] MEDS: NS 1,000 ML IV SCH (22:15)
[2019-04-10] MEDS ORDERED: SODIUM CHLORIDE 0.9% 1000ML IV ONE (22:15)
[2019-04-10] MEDS: PANTOPRAZOLE 40MG TAB (PROTONIX) PO SCH (23:08)
[2019-04-10] MEDS: DOCUSATE SODIUM 100 MG CAP PO SCH (23:09)
[2019-04-11] VITALS (7 sets, daily range): BP systolic 92–134; BP diastolic 61–80
[2019-04-11] MEDS: ONDANSETRON 4MG/2ML VIAL (J2405) IV PRN ×2 (03:16→10:08)
[2019-04-11] MEDS: MORPHINE 2 MG/ML 1ML VIAL (J2270) IV PRN ×4 (03:19→14:28)
[2019-04-11 05:16] LABS: HEMATOCRIT 30.2 % (36.0-47.0); HEMOGLOBIN 8.8 g/dl (12.0-15.5); MEAN CORPUSCULAR HEMOGLOBIN 27.7 pg (27.0-33.0); MEAN CORPUSCULAR HGB CONC 29.1 g/dl (32.0-36.5); RED BLOOD COUNT 3.18 10^6/uL (4.00-5.40); WHITE BLOOD COUNT 5.8 10^3/uL (4.0-10.0)
[2019-04-11 05:17] LABS: PLATELET COUNT, AUTOMATED 86 10^3/uL (150-450)
[2019-04-11 05:29] LABS: CALCIUM LEVEL 5.8 MG/DL (8.8-10.2); CREATININE FOR GFR 1.42 MG/DL (0.55-1.30); GLOMERULAR FILTRATION RATE 38.5 (>39); POTASSIUM SERUM 4.2 MEQ/L (3.5-5.1)
[2019-04-11] MEDS ORDERED: MORPHINE 2 MG/ML 1ML VIAL (J2270) IV ONE (05:30)
[2019-04-11] MEDS: LEVOTHYROXINE 137MCG TABLET (0.137MG) PO SCH (05:35)
[2019-04-11 05:39] LABS: ATYPICAL LYMPH 4 % (0-5); LYMPHOCYTES 10 % (16-44); MONOCYTES 37 % (0-5); NEUTROPHILS 49 % (28-66); NUCLEATED RED BLOOD CELL 1 % (0-0)
[2019-04-11 05:40] LABS: ANISOCYTOSIS 1+; HYPOCHROMASIA 2+; PLATELET ESTIMATE DECREASED (NORMAL); TOXIC VACUOLATION 2+
[2019-04-11] MEDS ORDERED: CLINDAMYCIN 600 MG in IV 1 EA IV ONE (05:45)
[2019-04-11] MEDS ORDERED: CALCIUM GLUCONATE 1,000 MG in D5W MINI-BAG PLUS 100 ML IV ONE ×2 (06:15→10:00)
[2019-04-11 06:54] LABS: MAGNESIUM LEVEL 1.9 MG/DL (1.8-2.4); PERCENT SATURATION 7.2 % (13.2-45.0); PHOSPHORUS LEVEL 4.3 MG/DL (2.5-4.9)
[2019-04-11] MEDS ORDERED: dexameTHASONE 4 MG/ML 1ML VIAL (J1100) As Ordered ONE (07:08)
[2019-04-11] MEDS ORDERED: ONDANSETRON 4MG/2ML VIAL (J2405) As Ordered ONE (07:08)
[2019-04-11] MEDS ORDERED: PROPOFOL 200 MG/20 ML VIAL As Ordered ONE (07:08)
[2019-04-11] MEDS ORDERED: LIDOCAINE 2% INJ 100 MG/5 ML SDV (FOR ANES.) As Ordered ONE (07:08)
[2019-04-11] MEDS ORDERED: ROCURONIUM BROMIDE 50 MG/5 ML VIAL As Ordered ONE (07:08)
[2019-04-11 07:23] LABS: INR 1.71; PROTHROMBIN TIME 19.8 SECONDS (11.8-14.0)
[2019-04-11 07:31] LABS: CALCIUM LEVEL 6.3 MG/DL (8.8-10.2); CREATININE FOR GFR 1.35 MG/DL (0.55-1.30); GLOMERULAR FILTRATION RATE 40.8 (>39); POTASSIUM SERUM 4.5 MEQ/L (3.5-5.1)
[2019-04-11] MEDS ORDERED: PERCOCET 5MG/325MG TAB PO PRN (07:45)
[2019-04-11] MEDS: PERCOCET 5MG/325MG TAB PO PRN ×3 (07:59→20:30)
--- NOTE | 2019-04-11 08:19 | HPE ---
DATE OF ADMISSION: 04/10/2019 CHIEF COMPLAINT: Left four-part intertrochanteric hip fracture. HISTORY OF PRESENT ILLNESS: This is a 73-year old female who had a slip and fall on her icy deck yesterday at 04:00 p.m.. She slipped and fell, sustained a mechanical left hip fracture. She called the ambulance who brought her in as well as calling her daughter, Suyapa. She has not experienced any chest pain, shortness of breath, weakness, nausea, vomiting, numbness in her lower extremities. There are no other injuries. She is brought to the hospital and found to have a left hip fracture. She took Eliquis morning and she does take this for atrial fibrillation. PAST MEDICAL HISTORY: 1. COPD. 2. Atrial fibrillation. 3. Hypertension. 4. Hyperlipidemia. 5. Reflux esophagitis. 6. Hiatal hernia. 7. Gastritis. 8. Hypothyroid. 9. Gout. 10. Osteoporosis. 11. Benign esophageal stenosis. 12. Diverticulosis. 13. Internal hemorrhoids. 14. Iron deficiency anemia. 15. Pulmonary nodule stable. MEDICATIONS: Allopurinol, amiodarone, Eliquis 5 mg by mouth twice a day, vitamin D, denosumab, fluticasone, folic acid, furosemide, levothyroxine, metoprolol nitrofurantoin, pantoprazole, simvastatin, spironolactone, thiamine, thyrotropin, verapamil, scheduled as needed albuterol. ALLERGIES: Tetracycline, zolpidem, sulfa medications, penicillins, tramadol. PAST SURGICAL HISTORY: Appendectomy, thyroid operation, adenoids removed. SOCIAL HISTORY: She is a former smoker. Does not smoke any more. She lives alone in a house in [facility]. She has a daughter named Suyapa, as well as two sons who are supportive. PHYSICAL EXAMINATION: Vital signs: Temperature 98.8, Blood pressure 97/62. Pulse rate 90. Resp rate 12. 97% on 2 liters nasal prongs. She is alert and oriented times three. Mood and affect pleasant positive. Station is normal. Inspection of lower extremities, there is some mild bruising to right knee. No pain to palpation of the lower extremities aside from the left hip. Normal sensation throughout the feet are warm well perfused. Palpable tibialis posterior pulses. Cap refill 3 seconds. LABORATORY: Laboratory examination reveals hemoglobin 10 down to 8.8 this morning. She is being transfused. Platelet estimate is decreased. INR is elevated to 1.84 down to 1.71 this morning. Left hip x-rays as well as a CT scan was reviewed. This shows a four-part intertrochanteric left hip fracture with reverse oblique segment the great trochanter. There is also moderate to severe osteoarthritis at the hip joint itself. No other fractures are noted. ASSESSMENT/PLAN: 73-year-old female has a left four-part intertrochanteric hip fracture with reverse obliquity. Best means to fix this would be a long cephalo-medullary nail device. We talked about pros, cons, risks, benefits of doing nothing versus going ahead with open reduction internal fixation left hip. Specific risks include but not limited to infection pain, stiffness, bleeding, delayed mal or nonunion other complications such as neurovascular injury, anesthetic complications, blood clots and . She wished to ahead we signed consent form as well as marking left lower extremity. I also signed a consent form for blood products which she had done already. She was receiving blood transfusion. In terms of timing of the case as she has only been on Eliquis for 24 hours, and her INR is elevated, I think given this circumstance my preference would be to delay for only 24 hours until tomorrow morning to perform the case. This allows us to be still under the 48-hour window to avoid increase mortality and delay slightly to have her INR come down and decrease the rate of a bleeding during surgery. I explained this to her and so for now we will go ahead make her diet as tolerated and nothing by mouth at midnight. I suspect that this will be better from my anesthesia colleagues as well in case they desire to do a spinal anesthetic. We will also go ahead and order full length femur views as I do plan to do a long IM nail to rule out any other distal injuries or lesions. MINOO
[2019-04-11] MEDS: DOCUSATE SODIUM 100 MG CAP PO SCH ×2 (08:46→20:30)
[2019-04-11] MEDS: NITROFURANTOIN (MACROBID) 100 MG CAP PO SCH (08:46)
[2019-04-11] MEDS: PANTOPRAZOLE 40MG TAB (PROTONIX) PO SCH ×2 (08:46→20:29)
[2019-04-11] MEDS: THIAMINE 100 MG TAB PO SCH (08:47)
[2019-04-11] MEDS: SIMVASTATIN 20 MG TAB PO SCH (08:47)
[2019-04-11] MEDS: FOLIC ACID 1 MG TAB PO SCH (08:49)
[2019-04-11] MEDS: CALCITRIOL 0.25 MCG CAP (S0169) PO SCH (08:49)
[2019-04-11] MEDS: AMIODARONE 100MG TABLET (PACERONE) PO SCH (08:49)
[2019-04-11] MEDS: METOPROLOL TART 12.5 MG PER 1/2 TAB PO SCH ×2 (08:50→20:29)
[2019-04-11] MEDS: ALLOPURINOL 100 MG TAB PO SCH (08:50)
[2019-04-11] MEDS: MIRALAX *UNIT DOSE* 17GM PACKET PO SCH (09:00)
--- NOTE | 2019-04-11 11:05 | IPNPDOC ---
Date Seen The patient was seen on 04/11/19. Progress Note SUBJECTIVE: 73-year-old female, past medical history of atrial fibrillation, hypertension, hyperlipidemia, COPD and GERD is admitted for left hip fracture status post fall after slipping on ice. Patient's last dose of Eliquis was about 36 hours ago, scheduled for surgery tomorrow morning. Patient currently nauseous after receiving pain medication, reports pain is moderately controlled with the current regimen. She has no complaints at this time, denies any shortness of breath, chest pain, vomiting, abdominal pain, diarrhea. She denies any numbness, tingling of her lower extremities, no significant weakness, but range of motion is limited due to pain. 10 point review of system is negative except for above PHYSICAL EXAMINATION: VITAL SIGNS: Please see below. GENERAL: No distress HEENT: Normocephalic, atraumatic, moist mucous membranes NECK: Supple CARDIOVASCULAR EXAMINATION: S1, S2, no murmurs RESPIRATORY EXAMINATION: Clear to auscultation, no wheezing ABDOMINAL EXAMINATION: Soft, nontender, nondistended, positive bowel sounds EXTREMITIES: Range of motion limited due to pain, left hip with tenderness to palpation and mild swelling. SKIN: No rash NEUROLOGICAL EXAMINATION: Alert and oriented 3, no focal deficits PSYCHIATRIC EXAMINATION: Calm and cooperative LABORATORY DATA, IMAGING STUDIES, MICROBIOLOGY: Please see below. DVT prophylaxis ordered?: Yes ASSESSMENT AND PLAN: 73-year-old female with past medical history of atrial fibrillation, hypertension, hyperlipidemia and GERD admitted for left hip fracture due to fall caused by slipping on ice. PROBLEMS: 1. Hip fracture: Comminuted left hip fracture, plan for surgical intervention tomorrow due to patient being on Eliquis, pain control, nothing by mouth after midnight, hematoma and fracture site, subsequent drop in hemoglobin, transfuse 1 unit of packed red blood cells, will trend H&H. Anemia worsened by hematoma, iron studies with significant deficiency, start oral supplementation. 2. Atrial fibrillation: Holding anticoagulation, continue amiodarone and metoprolol for rate control. 3. COPD: Stable, Continue home regimen. 4. Hypertension: Continue home meds 5. Hyperlipidemia: Continue simvastatin 6. GERD: Continue Protonix 7. Hypothyroidism: Continue levothyroxine DVT prophylaxis: SCDs. GI prophylaxis: Home PPI VS, I&O, 24H, Fishbone Vital Signs/I&O Vital Signs Date Time Temp Pulse Resp B/P (MAP) Pulse Ox O2 Delivery O2 Flow Rate FiO2 04/11/19 10:35 98.0 88 18 130/78 99 Nasal Cannula 2.0 I&O- Last 24 Hours up to 6 AM 04/11/19 06:00 Intake Total 1505 ml Balance 1505 ml Laboratory Data 24H LABS Laboratory Tests 2 04/10/19 19:07: Monocytes # (Auto) , Nucleated Red Blood Cells % (auto) 0.0, Neutrophils 50, Band Neutrophils 2, Lymphocytes (Manual) 12L, Monocytes (Manual) 32H, Basophils (Manual) 1, Atypical Lymphocytes 3, Platelet Estimate DECREASED, Immature Platelet Fraction 7.7, Prothrombin Time 21.0H, Prothromb Time International Ratio 1.84, Activated Partial Thromboplast Time 40.8H, Anion Gap 9, Glomerular Filtration Rate 47.2, Calcium Level 6.1L, Total Bilirubin 0.4, Direct Bilirubin 0.2, Aspartate Amino Transf (AST/SGOT) 15, Alanine Aminotransferase (ALT/SGPT) 20, Alkaline Phosphatase 76, Total Protein 5.9L, Albumin 2.8L, Albumin/Globulin Ratio 0.90L 04/11/19 04:49: Monocytes # (Auto) , Nucleated Red Blood Cells % (auto) 0.0, Neutrophils 49, Lymphocytes (Manual) 10L, Monocytes (Manual) 37H, Atypical Lymphocytes 4, Platelet Estimate DECREASED, Anion Gap 6L, Glomerular Filtration Rate 38.5L, Calcium Level 5.8*L, Nucleated Red Blood Cells 1H, Hypochromasia 2+, Anisocytosis 1+, Toxic Vacuolation 2+, Phosphorus Level 4.3, Magnesium Level 1.9, Iron Level 19L, Total Iron Binding Capacity 263, Transferrin % Saturation 7.2L, Ferritin 35 04/11/19 07:02: Prothrombin Time 19.8H, Prothromb Time International Ratio 1.71, Anion Gap 6L, Glomerular Filtration Rate 40.8, Calcium Level 6.3L CBC/BMP Laboratory Tests 04/10/19 19:07 04/11/19 04:49 04/11/19 07:02 CURT LUTHER MD Apr 11, 2019 11:05
[2019-04-11] MEDS: TIOTROPIUM INHALER/CAPSULE (SPIRIVA) INH SCH (11:32)
[2019-04-11] MEDS: SYMBICORT 80/4.5MCG INHALER 6GM INH SCH ×2 (11:33→20:03)
[2019-04-11] MEDS: FERROUS SULFATE 325MG TAB PO SCH ×2 (11:36→20:29)
[2019-04-11] MEDS: NS 1,000 ML IV SCH ×2 (11:36→20:19)
--- NOTE | 2019-04-11 13:36 | REP ---
Clinical: Trauma. Technique: AP and frog lateral views of the left femur. Findings: Intertrochanteric proximal femur fracture. Underlying age-related changes. Impression: Intertrochanteric proximal femur fracture. Electronically Signed by Adiel David MD 04/11/2019 01:28 P
[2019-04-12] VITALS (9 sets, daily range): BP systolic 97–199; BP diastolic 59–76
[2019-04-12] MEDS: PERCOCET 5MG/325MG TAB PO PRN (02:26)
[2019-04-12] MEDS: LEVOTHYROXINE 137MCG TABLET (0.137MG) PO SCH (05:34)
[2019-04-12 06:16] LABS: HEMATOCRIT 27.8 % (36.0-47.0); HEMOGLOBIN 8.5 g/dl (12.0-15.5); MEAN CORPUSCULAR HGB CONC 30.6 g/dl (32.0-36.5); MEAN CORPUSCULAR VOLUME 91.4 fl (80.0-96.0); RED BLOOD COUNT 3.04 10^6/uL (4.00-5.40)
[2019-04-12 06:19] LABS: PLATELET COUNT, AUTOMATED 76 10^3/uL (150-450)
[2019-04-12 06:38] LABS: CALCIUM LEVEL 5.8 MG/DL (8.8-10.2); CREATININE FOR GFR 1.55 MG/DL (0.55-1.30); GLOMERULAR FILTRATION RATE 34.8 (>39); MAGNESIUM LEVEL 1.7 MG/DL (1.8-2.4); PHOSPHORUS LEVEL 4.2 MG/DL (2.5-4.9); POTASSIUM SERUM 4.1 MEQ/L (3.5-5.1)
[2019-04-12 06:50] LABS: ATYPICAL LYMPH 1 % (0-5); LYMPHOCYTES 29 % (16-44); METAMYELOCYTES 1 % (0-0); MONOCYTES 21 % (0-5); MYELOCYTES 1 % (0-0); NEUTROPHILS 47 % (28-66)
[2019-04-12 06:53] LABS: ANISOCYTOSIS 1+; OVALOCYTES 1+; PLATELET ESTIMATE DECREASED (NORMAL); POIKILOCYTOSIS 1+; TOXIC VACUOLATION 1+
[2019-04-12 06:54] LABS: MICROCYTOSIS 1+
[2019-04-12] MEDS ORDERED: ROCURONIUM BROMIDE 50 MG/5 ML VIAL As Ordered ONE (07:13)
[2019-04-12] MEDS ORDERED: LIDOCAINE 2% INJ 100 MG/5 ML SDV (FOR ANES.) As Ordered ONE (07:13)
[2019-04-12] MEDS ORDERED: dexameTHASONE 4 MG/ML 1ML VIAL (J1100) As Ordered ONE (07:13)
[2019-04-12] MEDS ORDERED: PROPOFOL 200 MG/20 ML VIAL As Ordered ONE (07:13)
[2019-04-12] MEDS ORDERED: ONDANSETRON 4MG/2ML VIAL (J2405) As Ordered ONE ×2 (07:13→11:25)
--- NOTE | 2019-04-12 07:19 | ECGEPIP ---
[facility] - ED Test Date: 2019-04-10 Pat Name: MERON BERRY Department: Room: [place] [address] Gender: Female Radio Commentator: nadja : [id number] Requested By: ANA PATRICK Order Number: [id number] Reading MD: Jason Ku Measurements Intervals [place] Rate: 83 P: 60 NM: 196 QRS: 79 QRSD: 89 T: 65 QT: 375 QTc: 441 Interpretive Statements SINUS RHYTHM Low QRS complex voltage in the limb leads Nonspecific ST-T wave abnormalities Similar to tracing done 08-27-16 Electronically Signed on 04-12-2019 7:19:14 EST by Jason Ku
[2019-04-12] MEDS: CALCIUM GLUCONATE 1,000 MG in D5W MINI-BAG PLUS 100 ML IV SCH ×2 (07:34→08:00)
[2019-04-12] MEDS: SYMBICORT 80/4.5MCG INHALER 6GM INH SCH ×2 (07:36→19:04)
[2019-04-12] MEDS: TIOTROPIUM INHALER/CAPSULE (SPIRIVA) INH SCH (07:36)
[2019-04-12] MEDS ORDERED: fentaNYL 250 MCG/5 ML INJECTION (J3010) As Ordered ONE (07:39)
[2019-04-12] MEDS ORDERED: MIDAZOLAM INJ 2 MG/2 ML VIAL (J2250) As Ordered ONE (07:39)
[2019-04-12] MEDS ORDERED: CALCIUM CARBONATE 500 MG CHEW U/D PO ONE (08:00)
[2019-04-12] MEDS ORDERED: MAGNESIUM OXIDE 400 MG TAB (MAG-OX) PO ONE (08:00)
--- NOTE | 2019-04-12 08:02 | IPN ---
DATE: 04/12/2019 CHIEF COMPLAINT: Post admission day 1 left hip fracture. HISTORY OF PRESENT ILLNESS: This 73-year-old female had a mechanical fall. She has four-part left intertrochanteric hip fracture. Plan was for open reduction internal fixation. PHYSICAL EXAM: This is a well 73-year-old female. She is supine in bed. She is with her family now. Her daughter, Suyapa, has arrived. She is alert and oriented times three. Answering questions appropriately. She is doing the examination. She is doing a nasal decontamination treatment. Calcium was 518. ASSESSMENT AND PLAN: 73-year-old female with left intertrochanteric hip fracture. Her calcium is low, which I communicated to the window covering sales consultant tar leveler Dr. Dowd. He would like to go ahead with calcium gluconate supplementation IV and I was okay with proceeding with surgery. Plan is to do this this morning. I communicated with family the plan and recovery for this type surgery. MINOO
[2019-04-12] MEDS ORDERED: TRANEXAMIC ACID 100 MG/ML 10ML VIAL As Ordered ONE (08:13)
[2019-04-12] MEDS ORDERED: SCOPOLAMINE 1MG TRANSDERMAL PATCH As Ordered ONE (08:13)
[2019-04-12] MEDS: SCOPOLAMINE 1MG TRANSDERMAL PATCH TOP SCH (08:30)
[2019-04-12] MEDS ORDERED: CLINDAMYCIN 600 MG/50 ML PREMIX BAG As Ordered ONE (08:40)
[2019-04-12] MEDS: NITROFURANTOIN (MACROBID) 100 MG CAP PO SCH (09:00)
[2019-04-12] MEDS: PANTOPRAZOLE 40MG TAB (PROTONIX) PO SCH ×2 (09:00→20:28)
[2019-04-12] MEDS: DOCUSATE SODIUM 100 MG CAP PO SCH ×2 (09:00→20:28)
[2019-04-12] MEDS: METOPROLOL TART 12.5 MG PER 1/2 TAB PO SCH ×2 (09:00→20:27)
[2019-04-12] MEDS: THIAMINE 100 MG TAB PO SCH (09:00)
[2019-04-12] MEDS: AMIODARONE 100MG TABLET (PACERONE) PO SCH (09:00)
[2019-04-12] MEDS ORDERED: CLINDAMYCIN 600 MG in IV 1 EA IV ONE (09:00)
[2019-04-12] MEDS: FERROUS SULFATE 325MG TAB PO SCH ×2 (09:00→20:27)
[2019-04-12] MEDS: ALLOPURINOL 100 MG TAB PO SCH (09:00)
[2019-04-12] MEDS: MIRALAX *UNIT DOSE* 17GM PACKET PO SCH (09:00)
[2019-04-12] MEDS: CALCITRIOL 0.25 MCG CAP (S0169) PO SCH (09:00)
[2019-04-12] MEDS: FOLIC ACID 1 MG TAB PO SCH (09:00)
[2019-04-12] MEDS: SIMVASTATIN 20 MG TAB PO SCH (09:00)
[2019-04-12] MEDS ORDERED: SUGAMMADEX SODIUM 500 MG/5 ML VIAL (BRIDION) As Ordered ONE (09:03)
[2019-04-12] MEDS ORDERED: PHENYLephrine HCL 500 MCG/5 ML (100MCG/ML) SYRINGE (J2370) As Ordered ONE (10:05)
[2019-04-12] MEDS ORDERED: CALCIUM CHLORIDE 10% 1 GM/10 ML SYR As Ordered ONE (10:06)
[2019-04-12] MEDS ORDERED: HYDROmorphone HCL 2 MG/ML 1ML VIAL (J1170) As Ordered ONE (10:45)
[2019-04-12] MEDS ORDERED: ONDANSETRON 4MG/2ML VIAL (J2405) IV PRN (11:30)
[2019-04-12] MEDS ORDERED: oxyCODONE 5MG TAB PO PRN (11:30)
[2019-04-12] MEDS ORDERED: MORPHINE 2 MG/ML 1ML VIAL (J2270) IV PRN (11:30)
[2019-04-12] MEDS ORDERED: fentaNYL 100 MCG/2 ML INJECTION (J3010) IV PRN (11:30)
[2019-04-12] MEDS ORDERED: ONDANSETRON 4 MG TAB (S0181) PO PRN (11:30)
[2019-04-12] MEDS ORDERED: PERCOCET 5MG/325MG TAB PO PRN (11:30)
[2019-04-12] MEDS ORDERED: LR 1,000 ML IV SCH (11:30)
[2019-04-12] MEDS ORDERED: METOCLOPRAMIDE INJ 10MG/2ML VIAL (J2765) As Ordered ONE (11:32)
[2019-04-12] MEDS ORDERED: METOCLOPRAMIDE INJ 10MG/2ML VIAL (J2765) IV ONE (11:45)
--- NOTE | 2019-04-12 11:47 | REP ---
Clinical: Open reduction and fixation. Technique: Intraoperative fluoroscopic imaging using portable C-arm technique. Findings: Multiple intraoperative images demonstrate the patient to be status post open reduction and fixation for intertrochanteric left femur fracture. Total fluoroscopic time 5 minutes 15 seconds. Impression: Status post open reduction and fixation. Electronically Signed by Adiel David MD 04/12/2019 11:39 A
--- NOTE | 2019-04-12 12:10 | RO ---
DATE OF PROCEDURE: 04/12/2019 PREOPERATIVE DIAGNOSIS: Left four-part intertrochanteric hip fracture. POSTOPERATIVE DIAGNOSIS: Left four-part intertrochanteric hip fracture. PLANNED PROCEDURE: Left hip open reduction and internal fixation (intramedullary (IM) nail). PROCEDURE PERFORMED: Left hip open reduction and internal fixation (intramedullary (IM) nail). SURGEON: Isaiah Paredes MD DIRECTOR DECISION SUPPORT: No assistant auditor. SUTURE WINDER HAND: Qamar Dowd DO TYPE OF ANESTHETIC: General anesthetic. OPERATIVE PREAMBLE: This 73-year-old female had a mechanical fall. She sustained a comminuted reverse oblique four-part left intertrochanteric hip fracture. We talked about the pros, cons, risks, benefits of doing nothing versus surgical management in the form of IM nail with open reduction and internal fixation. She wished to proceed. We signed the left hip. I reiterated these risks prior to the surgery. I talked to her family, including her daughter, Suyapa; and we proceeded with surgery. OPERATIVE REPORT: The patient was brought to the operating theater. They administered 2 grams of intravenous (IV) Ancef and 2 grams of IV tranexamic acid. They were placed supine on the fracture table. General anesthesia was induced. The left leg was placed in traction, and the right leg flexed up in a well-leg varghese. All bony prominences were padded. The leg was placed into traction with internal rotation. Preoperative x-rays were taken, including AP and lateral. It was widely displaced. This was a four-part intertrochanteric hip fracture with reverse obliquity to the greater trochanter segment. The leg was prepped and draped in the usual sterile fashion using a shower curtain sterile drape. Prep solution was allowed to thoroughly dry before draping. Preoperative time-out was performed to confirm the site, the patient, and the surgery. I began by making a small 3-inch incision centered at the fracture site. I carried this dissection down through skin and subcutaneous tissue and incised the tensor fascia pernell in line of the skin incision. I used a bone hook around the distal fragment to realign this. It aligned nicely. However, the proximal neck fragment on the lateral radiograph was quite flexed. I then made a proximal 2-inch incision centered 3 fingerbreadths proximal to the level of the greater trochanter. I carried this dissection down again through skin and subcutaneous tissue to achieve good hemostasis, at the site of the fascia, I used curved Giraldo's to dissect down to the level of the greater trochanter. I confirmed that the 3.2 mm partially threaded guidewire was at the tip of the greater trochanter and at the typical plane passing down that on both AP and lateral radiographs. I used the Antria drill through the greater trochanter. I then placed a small band at the tip of the ball-tip guidewire. I passed the guidewire through the reamed hole at the greater trochanter and then down distally to the knee. I took AP and lateral radiographs of the knee to confirm proper positioning. I used the bone hook to achieve proper reduction while reaming up to a 12.5 mm reamer sequentially. I then selected a 380 mm long 11 mm in diameter Synthes TFN-A nail left. I tapped this down to appropriate position on AP and lateral radiographs. Ball tipped guide wire was removed. I used the bone hook and then also made a small incision anteriorly overlying the femoral neck and then used percutaneous technique to insert a ball spike pusher in the femoral neck to reduce the flexion of that segment. I used the 125-degree drop-down guide. I inserted this down to an appropriate level and then made another percutaneous stab incision to get the guide down to the lateral aspect of the bone. I did attempt to also reduce the lateral obliquity part of the greater trochanter fragments while passing the guidewire up into the neck and head. Unfortunately, due to the angle anteriorly and the shape the spike made, I was unable to actually pass the guidewire through that segment to keep it anatomically reduced, as I did have to start the guidewire slightly posteriorly through the actual fracture site in order to have appropriate position in the center of the femoral head and neck veering slightly posteriorly and inferiorly. I passed the tip of the guidewire up to the subchondral bone. This measured approximately 103 mm on AP and lateral radiographs. As such, I selected a 95 mm drill and a 95 mm screw. I drilled and tapped in the helical blade to an appropriate depth. I then confirmed using the guidewire itself that this was 7-8 mm short of the subchondral bone on the lateral radiographs for a tip apex distance approximately less than 25 mm combined tip apex distance (TAD). I secured this down and locked the nail proximally and then backed it off a quater turn for some compression. Just prior to doing this, I had also released some traction from the leg, as well. Hip flexion, as well as the medial calcar, were well aligned overall. I then turned my attention distally. Using a perfect k[place] technique on the radiographs, as well as percutaneous technique, I then inserted all three distal locking screws. I took final radiographs, AP and lateral, as well as taking off the proximal guide. I thoroughly irrigated the wounds. Subcutaneous tissue was closed with interrupted 2-0 Vicryl suture. The skin was closed with jaquan. The skin was cleaned wet and dry dressing followed by application of Adaptic 4 x 8 gauze, ABD dressing, and cloth tape. The patient was removed out of the traction setup. The patient was woken up from general anesthetic and transferred off the operating room table and taken to the postanesthetic care unit in stable condition. All sponge, needle, and instrument counts were correct. There were no complications. ESTIMATED BLOOD LOSS: 250 mL. The plan for the patient is to be weightbearing as tolerated, to be admitted to the hospital, and be seen by the physical therapist for mobility. They will be admitted under the hospitalist again. Repeat blood work will be obtained as they had been transfused two times for their surgery, as well as having low calcium. So, we will followup on the electrolyte studies, as well. Followup in 2 weeks' time to discontinue the jaquan, as well as starting back on their Eliquis for venous thromboembolism (VTE) prophylaxis, they were already on prior to surgery. We will start that 24 hours after case completion. MINOO
[2019-04-12] MEDS: MAG SULF 1GM/100ML (MAG RUN) 1 GM in IV 1 EA IV SCH ×2 (12:16→13:27)
[2019-04-12] MEDS ORDERED: MAGNESIUM SULFATE 1 GM/100 ML D5W BAG (10MG/ML) (J3475) As Ordered ONE (13:26)
[2019-04-12] MEDS: LR 1,000 ML IV SCH ×2 (13:28→20:26)
--- NOTE | 2019-04-12 19:55 | IPNPDOC ---
Date Seen The patient was seen on 04/12/19. Progress Note SUBJECTIVE: 73-year-old female, past medical history of atrial fibrillation, hypertension, hyperlipidemia, COPD and GERD is admitted for left hip fracture status post fall after slipping on ice. Patient's last dose of Eliquis was about 36 hours ago, scheduled for surgery tomorrow morning. Patient currently nauseous after receiving pain medication, reports pain is moderately controlled with the current regimen. She has no complaints at this time, denies any shortness of breath, chest pain, vomiting, abdominal pain, diarrhea. She denies any numbness, tingling of her lower extremities, no significant weakness, but range of motion is limited due to pain. 04/12/2019 Patient underwent ORIF today, seen in her room postop, reports some nausea and pain at surgical site, no other complaints. 10 point review of system is negative except for above PHYSICAL EXAMINATION: VITAL SIGNS: Please see below. GENERAL: No distress HEENT: Normocephalic, atraumatic, moist mucous membranes NECK: Supple CARDIOVASCULAR EXAMINATION: S1, S2, no murmurs RESPIRATORY EXAMINATION: Clear to auscultation, no wheezing ABDOMINAL EXAMINATION: Soft, nontender, nondistended, positive bowel sounds EXTREMITIES: Range of motion limited due to pain, left hip with tenderness to palpation SKIN: No rash NEUROLOGICAL EXAMINATION: Alert and oriented 3, no focal deficits PSYCHIATRIC EXAMINATION: Calm and cooperative LABORATORY DATA, IMAGING STUDIES, MICROBIOLOGY: Please see below. DVT prophylaxis ordered?: Yes ASSESSMENT AND PLAN: 73-year-old female with past medical history of atrial fibrillation, hypertension, hyperlipidemia and GERD admitted for left hip fracture due to fall caused by slipping on ice. PROBLEMS: 1. Hip fracture: Comminuted left hip fracture, status post ORIF today, pain control, physical therapy evaluation, restart Eliquis tomorrow. Acute kidney injury, continue IV fluids, bedside bladder scan without retention, renal ultrasound pending. 2. Atrial fibrillation: Restart anticoagulation, continue amiodarone and metoprolol for rate control. 3. COPD: Stable, Continue home regimen. 4. Hypertension: Continue home meds 5. Hyperlipidemia: Continue simvastatin 6. GERD: Continue Protonix 7. Hypothyroidism: Continue levothyroxine DVT prophylaxis: Eliquis GI prophylaxis: Home PPI VS, I&O, 24H, Fishbone Vital Signs/I&O Vital Signs Date Time Temp Pulse Resp B/P (MAP) Pulse Ox O2 Delivery O2 Flow Rate FiO2 04/12/19 18:00 97.8 94 16 97/59 (72) 98 Nasal Cannula 2.0 I&O- Last 24 Hours up to 6 AM 04/12/19 06:00 Intake Total 1495 ml Output Total 225 ml Balance 1270 ml Laboratory Data 24H LABS Laboratory Tests 2 04/12/19 05:54: Monocytes # (Auto) , Nucleated Red Blood Cells % (auto) 0.0, Neutrophils 47, Lymphocytes (Manual) 29, Monocytes (Manual) 21H, Metamyelocytes 1H, Myelocytes 1H, Atypical Lymphocytes 1, Poikilocytosis 1+, Anisocytosis 1+, Microcytosis 1+, Ovalocytes 1+, Toxic Vacuolation 1+, Platelet Estimate DECREASED, Immature Platelet Fraction 7.1, Anion Gap 8, Glomerular Filtration Rate 34.8L, Calcium Level 5.8*L, Phosphorus Level 4.2, Magnesium Level 1.7L CBC/BMP Laboratory Tests 04/12/19 05:54 CURT LUTHER MD Apr 12, 2019 19:55
[2019-04-12] MEDS: CLINDAMYCIN 600 MG in IV 1 EA IV SCH (20:27)
[2019-04-12] MEDS: ONDANSETRON 4MG/2ML VIAL (J2405) IV PRN (21:36)
[2019-04-13] VITALS (13 sets, daily range): BP systolic 111–152; BP diastolic 40–87
[2019-04-13] MEDS: LR 1,000 ML IV SCH (03:45)
[2019-04-13] MEDS: ONDANSETRON 4MG/2ML VIAL (J2405) IV PRN (03:45)
[2019-04-13] MEDS: CLINDAMYCIN 600 MG in IV 1 EA IV SCH (03:45)
[2019-04-13] MEDS: LEVOTHYROXINE 137MCG TABLET (0.137MG) PO SCH (05:44)
[2019-04-13 06:07] LABS: HEMATOCRIT 21.8 % (36.0-47.0); MEAN CORPUSCULAR HEMOGLOBIN 27.8 pg (27.0-33.0); MEAN CORPUSCULAR HGB CONC 30.3 g/dl (32.0-36.5); RED BLOOD COUNT 2.37 10^6/uL (4.00-5.40); WHITE BLOOD COUNT 9.9 10^3/uL (4.0-10.0)
[2019-04-13 06:09] LABS: HEMOGLOBIN 6.6 g/dl (12.0-15.5); PLATELET COUNT, AUTOMATED 75 10^3/uL (150-450)
[2019-04-13 06:17] LABS: CALCIUM LEVEL 6.6 MG/DL (8.8-10.2); CREATININE FOR GFR 2.46 MG/DL (0.55-1.30); GLOMERULAR FILTRATION RATE 20.4 (>39); MAGNESIUM LEVEL 2.3 MG/DL (1.8-2.4); POTASSIUM SERUM 4.4 MEQ/L (3.5-5.1)
[2019-04-13 06:33] LABS: LYMPHOCYTES 12 % (16-44); MONOCYTES 35 % (0-5); NEUTROPHILS 53 % (28-66)
[2019-04-13 06:34] LABS: HYPOCHROMASIA 2+; PLATELET ESTIMATE MARKED DECREASE (NORMAL)
[2019-04-13] MEDS: SYMBICORT 80/4.5MCG INHALER 6GM INH SCH ×2 (07:35→19:41)
--- NOTE | 2019-04-13 08:34 | REP ---
Clinical: Acute renal insufficiency. Technique: Real time bonner scale ultrasound examination using curved array transducer. Findings: Bilateral kidneys are normal in contour, size, echogenicity, and reniform shape. No hydronephrosis, nephrolithiasis, cystic or renal mass lesion. No perinephric fluid collection. Right kidney measures 7.6 x 4.3 para 4.3 cm. Left kidney measures 9.4 x 4.7 x 4.1 cm. Bladder is collapsed. Impression: Age-related atrophic changes to the kidneys (right greater than left). No hydronephrosis or obvious renal pathology. Electronically Signed by Adiel David MD 04/13/2019 08:26 A
[2019-04-13] MEDS: METOPROLOL TART 12.5 MG PER 1/2 TAB PO SCH ×2 (09:00→21:09)
[2019-04-13] MEDS: APIXABAN 5 MG TAB (ELIQUIS) PO SCH ×3 (09:00→21:09)
[2019-04-13] MEDS: MIRALAX *UNIT DOSE* 17GM PACKET PO SCH (09:00)
[2019-04-13 09:18] LABS: VITAMIN B12 LEVEL 504 PG/ML (247-911)
[2019-04-13 09:19] LABS: FOLATE > 24.0 NG/ML (>5.4)
[2019-04-13] MEDS: CALCITRIOL 0.25 MCG CAP (S0169) PO SCH (09:40)
[2019-04-13] MEDS: DOCUSATE SODIUM 100 MG CAP PO SCH ×2 (09:41→21:09)
[2019-04-13] MEDS: ALLOPURINOL 100 MG TAB PO SCH (09:41)
[2019-04-13] MEDS: SIMVASTATIN 20 MG TAB PO SCH (09:41)
[2019-04-13] MEDS: NITROFURANTOIN (MACROBID) 100 MG CAP PO SCH (09:41)
[2019-04-13] MEDS: FERROUS SULFATE 325MG TAB PO SCH ×2 (09:41→21:08)
[2019-04-13] MEDS: PANTOPRAZOLE 40MG TAB (PROTONIX) PO SCH ×2 (09:41→21:09)
[2019-04-13] MEDS: FOLIC ACID 1 MG TAB PO SCH (09:41)
[2019-04-13] MEDS: AMIODARONE 100MG TABLET (PACERONE) PO SCH (09:41)
[2019-04-13] MEDS: THIAMINE 100 MG TAB PO SCH (09:42)
[2019-04-13] MEDS: TIOTROPIUM INHALER/CAPSULE (SPIRIVA) INH SCH (11:58)
[2019-04-13] MEDS: ACETAMINOPHEN TAB 650MG DOSE (2X325MG) PO PRN (13:05)
--- NOTE | 2019-04-13 14:37 | IPN ---
DATE FO SERVICE: 04/13/2019 CHIEF COMPLAINT: Postop day #1 left hip intramedullary (IM) nail. HISTORY OF PRESENT ILLNESS: This is a 73-year-old female who underwent IM nailing for a four-part intertrochanteric hip fracture yesterday. Seen on the kiser this afternoon. She is doing well. She was transfused packed red cells for low hemoglobin of 6.6 by the hospitalists. She is not complaining about any chest pain or shortness of breath or any other symptoms. Pain is well-controlled in her hip. She did set up into the bed. PHYSICAL EXAMINATION: Vital signs: Blood pressure 112/60, pulse rate 100, temperature 98.4 respiratory rate 20, 95% on room air. She is alert and oriented times three. Mood and affect pleasant and positive. She is laying supine. Bulky dressings are in situ. Thigh compartments are soft. No strike through on the dressings. Normal sensation of both feet. Feet are warm and well perfused. She can wiggle her toes, dorsiflex and plantar flex the foot. Laboratory examination this morning: Low hemoglobin 6.6. ASSESSMENT/PLAN: This 73-year-old female is being actively managed by the hospitalist. I thank them greatly for their active management in her other medical issues such as her acute kidney injury. In terms of the hip fracture, we will have physical therapy see them while she is in hospital to ensure safety for mobilization and discharge home. Ideally, she would be slightly protected weightbearing given a four-part intertrochanteric hip fracture, although in elderly people with hip fractures, this might not be reasonable so I made her weightbearing as tolerated. Typically, these patients are auto-protect that side based on their levels of pain. I do expect some compression fracture site, given that I inserted the nail in a compression fashion. We will see how things go and definitely monitor her here, hemoglobin daily.
[2019-04-13] MEDS ORDERED: NS 1,000 ML IV SCH (18:30)
--- NOTE | 2019-04-13 19:29 | IPNPDOC ---
Date Seen The patient was seen on 04/13/19. Progress Note SUBJECTIVE: 73-year-old female, past medical history of atrial fibrillation, hypertension, hyperlipidemia, COPD and GERD is admitted for left hip fracture status post fall after slipping on ice. Patient's last dose of Eliquis was about 36 hours ago, scheduled for surgery tomorrow morning. Patient currently nauseous after receiving pain medication, reports pain is moderately controlled with the current regimen. She has no complaints at this time, denies any shortness of breath, chest pain, vomiting, abdominal pain, diarrhea. She denies any numbness, tingling of her lower extremities, no significant weakness, but range of motion is limited due to pain. 04/12/2019 Patient underwent ORIF today, seen in her room postop, reports some nausea and pain at surgical site, no other complaints. 04/13/2019 Patient postop day 1, having mild incision site pain, no other complaints. She had a drop in hemoglobin, received 2 units packed red blood cells, acute kidney injury, worsening. 10 point review of system is negative except for above PHYSICAL EXAMINATION: VITAL SIGNS: Please see below. GENERAL: No distress HEENT: Normocephalic, atraumatic, moist mucous membranes NECK: Supple CARDIOVASCULAR EXAMINATION: S1, S2, no murmurs RESPIRATORY EXAMINATION: Clear to auscultation, no wheezing ABDOMINAL EXAMINATION: Soft, nontender, nondistended, positive bowel sounds EXTREMITIES: Range of motion limited due to pain, left hip with tenderness to palpation SKIN: No rash NEUROLOGICAL EXAMINATION: Alert and oriented 3, no focal deficits PSYCHIATRIC EXAMINATION: Calm and cooperative LABORATORY DATA, IMAGING STUDIES, MICROBIOLOGY: Please see below. DVT prophylaxis ordered?: Yes ASSESSMENT AND PLAN: 73-year-old female with past medical history of atrial fibrillation, hypertension, hyperlipidemia and GERD admitted for left hip fracture due to fall caused by slipping on ice. PROBLEMS: 1. Hip fracture: Comminuted left hip fracture, status post ORIF, pain control, physical therapy, continue Eliquis 2. Acute kidney injury: bedside bladder scan without retention, renal ultrasound with medical renal disease, likely hypovolemic, received 2 units of packed red blood cells today, bedside ultrasound with significantly collapsible IVC, bolused 1 L of normal saline followed by normal saline at 125 and most per hour. 2. Atrial fibrillation: Restarted anticoagulation, continue amiodarone and metoprolol for rate control. 3. COPD: Stable, Continue home regimen. 4. Hypertension: Continue home meds 5. Hyperlipidemia: Continue simvastatin 6. GERD: Continue Protonix 7. Hypothyroidism: Continue levothyroxine DVT prophylaxis: Eliquis GI prophylaxis: Home PPI VS, I&O, 24H, Fishbone Vital Signs/I&O Vital Signs Date Time Temp Pulse Resp B/P (MAP) Pulse Ox O2 Delivery O2 Flow Rate FiO2 04/13/19 17:08 97.5 87 18 116/86 96 Nasal Cannula 04/13/19 06:00 2.0 I&O- Last 24 Hours up to 6 AM 04/13/19 06:00 Intake Total 3600 ml Output Total 710 ml Balance 2890 ml Laboratory Data 24H LABS Laboratory Tests 2 04/13/19 05:27: Immature Granulocyte % (Auto) , Monocytes # (Auto) , Nucleated Red Blood Cells % (auto) 0.3H, Neutrophils 53, Lymphocytes (Manual) 12L, Monocytes (Manual) 35H, Hypochromasia 2+, Platelet Estimate MARKED DECREASE, Anion Gap 11, Glomerular Filtration Rate 20.4L, Calcium Level 6.6L, Phosphorus Level 5.0H, Magnesium Level 2.3 CBC/BMP Laboratory Tests 04/13/19 05:27 CURT LUTHER MD Apr 13, 2019 19:29
[2019-04-13] MEDS ORDERED: NS 1,000 ML IV ONE (19:30)
--- NOTE | 2019-04-13 19:43 | REP ---
Single view chest: 04/13/2019. Indication: Dyspnea. Comparison: 07/28/2016. Findings: The lungs are clear. There is no pleural effusion or pneumothorax. The vasculature/interstitia is unremarkable without evidence of pulmonary edema. The cardiac silhouette is borderline enlarged. Scoliosis is redemonstrated. Impression: There is no evidence of acute cardiopulmonary process. Electronically Signed by Abimael Ayoub DO 04/13/2019 07:35 P
[2019-04-13] MEDS: NS 1,000 ML IV SCH (21:08)
--- NOTE | 2019-04-13 21:17 | REPVR ---
PROCEDURE INFORMATION: Exam: CT Abdomen And Pelvis Without Contrast Exam date and time: 04/13/2019 8:29 PM Age: 73 years old Clinical history: Abdominal pain; Generalized; Prior surgery; Additional info: Hussein, R/O hematoma TECHNIQUE: Imaging protocol: Computed tomography of the abdomen and pelvis without contrast. Radiation optimization: All CT scans at this facility use at least one of these dose optimization techniques: automated exposure control; mA and/or kV adjustment per patient size (includes targeted exams where dose is matched to clinical indication); or iterative reconstruction. COMPARISON: CT ABD PELVIS W/O CONTRAST 06/09/2016 6:50 PM FINDINGS: Lungs: There is a new spiculated 1.4 cm density in the left lung base. Pleural space: Trace left pleural effusion. Liver: Stable 12 mm hypodense lesion in the liver. No other liver masses. Gallbladder and bile ducts: The gallbladder is distended and contains n slides and calculi. No para cholecystic fluid or biliary duct dilation. Pancreas: Normal. No ductal dilation. Spleen: The spleen is enlarged measuring 20 cm. No splenic infarct or hemorrhage. Adrenals: Normal. No mass. Kidneys and ureters: Normal. No hydronephrosis. Stomach and bowel: Unremarkable. No obstruction. No mucosal thickening. Appendix: No evidence of appendicitis. Intraperitoneal space: Unremarkable. No free air. No significant fluid collection. Vasculature: Unremarkable. No abdominal aortic aneurysm. Lymph nodes: Unremarkable. No enlarged lymph nodes. Bladder: Unremarkable as visualized. Reproductive: Unremarkable as visualized. Bones/joints: Mild enlargement and edema of the proximal left leg and hip musculature. There are advanced degenerative changes in the spine and pelvis. Compression fractures L1 and L4 are new since the prior exam. Soft tissues: Prominent soft tissue edema and swelling is noted in the left posterior lateral chest wall. Left posterior lateral chest wall musculature appears edematous and enlarged without a loculated measurable fluid collection. Multiple areas of subcutaneous emphysema and some fluid are noted in the left pelvic soft tissues associated with the left hip ORIF. IMPRESSION: 1. New spiculated density in the left lung base. Followup is recommended. 2. Asymmetric enlargement and edema of left posterior lateral chest wall musculature and left hip/proximal leg musculature may be related to intramuscular hemorrhage or edema. No loculated hematoma is seen. 3. No intraperitoneal hemorrhage. 4. Splenomegaly. 5. Cholelithiasis. 6. Left hip ORIF. Advanced degenerative spondylosis. 7. Compression fractures of L1 and L4. Electronically signed by: Pedro Wiley On 04/13/2019 21:17:12 PM
[2019-04-14] VITALS (9 sets, daily range): BP systolic 120–145; BP diastolic 59–69
[2019-04-14] MEDS: ACETAMINOPHEN TAB 650MG DOSE (2X325MG) PO PRN (01:56)
[2019-04-14] MEDS: LEVOTHYROXINE 137MCG TABLET (0.137MG) PO SCH (05:35)
[2019-04-14] MEDS: NS 1,000 ML IV SCH ×2 (05:36→12:35)
[2019-04-14 06:00] LABS: HEMATOCRIT 26.2 % (36.0-47.0); HEMOGLOBIN 8.6 g/dl (12.0-15.5); MEAN CORPUSCULAR HEMOGLOBIN 28.5 pg (27.0-33.0); MEAN CORPUSCULAR HGB CONC 32.8 g/dl (32.0-36.5); MEAN CORPUSCULAR VOLUME 86.8 fl (80.0-96.0); RED BLOOD COUNT 3.02 10^6/uL (4.00-5.40)
[2019-04-14 06:02] LABS: PLATELET COUNT, AUTOMATED 61 10^3/uL (150-450)
[2019-04-14 06:12] LABS: CALCIUM LEVEL 6.1 MG/DL (8.8-10.2); CREATININE FOR GFR 2.19 MG/DL (0.55-1.30); GLOMERULAR FILTRATION RATE 23.3 (>39); MAGNESIUM LEVEL 2.2 MG/DL (1.8-2.4); PHOSPHORUS LEVEL 3.4 MG/DL (2.5-4.9); POTASSIUM SERUM 3.8 MEQ/L (3.5-5.1)
[2019-04-14 06:23] LABS: LYMPHOCYTES 19 % (16-44); MONOCYTES 21 % (0-5); NEUTROPHILS 60 % (28-66); PLATELET ESTIMATE DECREASED (NORMAL)
[2019-04-14] MEDS: SYMBICORT 80/4.5MCG INHALER 6GM INH SCH (07:00)
[2019-04-14] MEDS: TIOTROPIUM INHALER/CAPSULE (SPIRIVA) INH SCH (07:00)
--- NOTE | 2019-04-14 07:30 | ECGEPIP ---
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
[2019-04-14] MEDS: SIMVASTATIN 20 MG TAB PO SCH (08:21)
[2019-04-14] MEDS: CALCITRIOL 0.25 MCG CAP (S0169) PO SCH (08:21)
[2019-04-14] MEDS: METOPROLOL TART 12.5 MG PER 1/2 TAB PO SCH (08:21)
[2019-04-14] MEDS: FOLIC ACID 1 MG TAB PO SCH (08:21)
[2019-04-14] MEDS: PANTOPRAZOLE 40MG TAB (PROTONIX) PO SCH (08:21)
[2019-04-14] MEDS: THIAMINE 100 MG TAB PO SCH (08:21)
[2019-04-14] MEDS: NITROFURANTOIN (MACROBID) 100 MG CAP PO SCH (08:21)
[2019-04-14] MEDS: APIXABAN 5 MG TAB (ELIQUIS) PO SCH (08:21)
[2019-04-14] MEDS: FERROUS SULFATE 325MG TAB PO SCH (08:21)
[2019-04-14] MEDS: AMIODARONE 100MG TABLET (PACERONE) PO SCH (08:21)
[2019-04-14] MEDS: ALLOPURINOL 100 MG TAB PO SCH (08:21)
[2019-04-14] MEDS: MIRALAX *UNIT DOSE* 17GM PACKET PO SCH (08:22)
[2019-04-14] MEDS: DOCUSATE SODIUM 100 MG CAP PO SCH (08:22)
[2019-04-14] MEDS: SCOPOLAMINE 1MG TRANSDERMAL PATCH TOP SCH (08:24)
[2019-04-14] MEDS: ONDANSETRON 4MG/2ML VIAL (J2405) IV PRN (13:21)
[2019-04-14] MEDS ORDERED: FERR325T18 PO (14:19)
--- NOTE | 2019-04-14 14:26 | DS.PDOC ---
Discharge Summary General Date of Admission Apr 10, 2019 at 20:13 Date of Discharge 04/14/2019 Attending Physician: CURT LUTHER MD Discharge Summary PROCEDURES PERFORMED DURING STAY: None. ADMITTING DIAGNOSES: 1. Comminuted left hip fracture. DISCHARGE DIAGNOSES: 1. Comminuted left hip fracture, hematoma, acute anemia, acute kidney injury. COMPLICATIONS/CHIEF COMPLAINT: Hip Fracture, Left. HISTORY OF PRESENT ILLNESS: 73-year-old female admitted for comminuted left hip fracture and hematoma status post mechanical fall. Patient on Eliquis outpatient, required 4 units of packed red blood cells total for acute anemia, underwent ORIF. Patient significantly dehydrated, continues to have poor oral intake during hospitalization, requiring IV hydration for acute kidney injury. Patient will require rehabilitation prior to going home, being transferred to acute rehabilitation unit. Patient will require further IV hydration until acute kidney injury has resolved and patient has adequate oral intake. Patient is clinically as for transfer to acute rehabilitation unit for further care. HOSPITAL COURSE: As above. DISCHARGE MEDICATIONS: Please see below. ALLERGIES: Please see below. PHYSICAL EXAMINATION: VITAL SIGNS: Please see below. GENERAL: No distress HEENT: Normocephalic, atraumatic, moist mucous membranes NECK: Supple CARDIOVASCULAR EXAMINATION: S1, S2, no murmurs RESPIRATORY EXAMINATION: Clear to auscultation, no wheezing ABDOMINAL EXAMINATION: Soft, nontender, nondistended, positive bowel sounds EXTREMITIES: Range of motion limited due to pain, left hip with tenderness to palpation SKIN: No rash NEUROLOGICAL EXAMINATION: Alert and oriented 3, no focal deficits PSYCHIATRIC EXAMINATION: Calm and cooperative LABORATORY DATA: Please see below. IMAGING: Comminuted left hip fracture PROGNOSIS: Fair ACTIVITY: As tolerated. DIET: Cardiac DISCHARGE PLAN: Patient will be discharged to acute rehabilitation unit DISPOSITION: Acute rehabilitation unit. DISCHARGE INSTRUCTIONS: 1. As above. ITEMS TO FOLLOWUP ON ON OUTPATIENT: 1. Follow-up with orthopedic surgeon, PCP after discharge from acute rehabilitation unit. DISCHARGE CONDITION: Stable. TIME SPENT ON DISCHARGE: Greater than 35 minutes. Vital Signs/I&Os Vital Signs Date Time Temp Pulse Resp B/P (MAP) Pulse Ox O2 Delivery O2 Flow Rate FiO2 04/14/19 12:00 98.1 81 18 120/60 (80) 96 Room Air 04/13/19 06:00 2.0 I&O- Last 24 Hours up to 6 AM 04/14/19 06:00 Intake Total 3325 ml Output Total 865 ml Balance 2460 ml Laboratory Data Labs 24H Laboratory Tests 2 04/14/19 05:33: Immature Granulocyte % (Auto) , Monocytes # (Auto) , Nucleated Red Blood Cells % (auto) 1.0H, Neutrophils 60, Lymphocytes (Manual) 19, Monocytes (Manual) 21H, Red Blood Cell Morphology NORMAL, Platelet Estimate DECREASED, Immature Platelet Fraction 9.8H, Anion Gap 9, Glomerular Filtration Rate 23.3L, Calcium Level 6.1L, Phosphorus Level 3.4#, Magnesium Level 2.2 CBC/BMP Laboratory Tests 04/13/19 21:13 04/14/19 05:33 Discharge Medications Scheduled Allopurinol (Allopurinol) 100 Mg Tab, 100 MG PO DAILY, (Reported) Amiodarone HCl (Pacerone) 100 Mg Tab, 200 MG PO DAILY, (Reported) Apixaban (Eliquis) 5 Mg Tab, 5 MG PO BID, (Reported) Cholecalciferol (Vitamin D3) (Vitamin D3) 50,000 Unit Capsule, 50,000 UNIT PO Q30D, (Reported) TAKES ON THE FIRST SATURDAY OF THE MONTH Denosumab Injection (Prolia) 60 Mg/1 Ml Syringe, 60 MG SC [id number], (Reported) Ferrous Sulfate (Ferrous Sulfate) 325 Mg Tablet, 325 MG PO BID Fluticasone/Vilanterol (Breo Ellipta 200-25 Mcg INH) 1 Each Blst.w.dev, 1 PUFF INH DAILY, (Reported) Folic Acid (Folic Acid) 1 Mg Tab, 1 MG PO DAILY, (Reported) Levothyroxine Sodium (Levothyroxine Sodium) 137 Mcg Tablet, 137 MCG PO DAILY, (Reported) Metoprolol Tartrate (Metoprolol Tartrate) 25 Mg Tab, 12.5 MG PO BID, (Reported) Nitrofurantoin Monohyd/M-Cryst (Nitrofurantoin Bennett-Mcr 100 mg) 100 Mg Capsule, 100 MG PO DAILY, (Reported) Pantoprazole Sodium (Pantoprazole Sodium) 40 Mg Tablet.dr, 40 MG PO BID, (Reported) Simvastatin (Simvastatin) 20 Mg Tab, 20 MG PO DAILY, (Reported) Spironolactone (Spironolactone) 25 Mg Tab, 12.5 MG PO DAILY, (Reported) Thiamine Mononitrate (Vit B1) (Vitamin B-1) 100 Mg Tablet, 100 MG PO DAILY, (Reported) Tiotropium [place] (Spiriva) 18 Mcg Cap, 2 PUFFS INH DAILY, (Reported) Verapamil HCl (Verapamil ER) 120 Mg Tab, 120 MG PO BID, (Reported) Scheduled PRN Albuterol Sulfate (Albuterol Sulfate Hfa) 8.5 Gm Hfa.aer.ad, 1 INH INH q4-6h PRN for SOB/WHEEZING, (Reported) Allergies Coded Allergies: tetracycline (Verified Allergy, Severe, swelling, peeling of the tongue, 02/19/19) zolpidem (Verified Allergy, Severe, respiratory distress, 02/19/19) Sulfa (Sulfonamide Antibiotics) (Verified Allergy, Intermediate, hives, 02/19/19) Penicillins (Verified Adverse Reaction, Intermediate, N/V, 02/19/19) tramadol (Verified Adverse Reaction, Intermediate, N/V, 02/19/19) CURT LUTHER MD Apr 14, 2019 14:26
== END 2019-04-14 15:44 | DRG 481 ==
LOC: EDBD 17:33 → M ED 17:33 → EDSEX 17:33 → M ED INP 20:13 → M MS5PR 21:35 → M PCU 04-13 20:35
PROVIDERS: ADMIT Internal Medicine Nephrology; ATTEND Internal Medicine
PROC: 30233N1 Transfusion of Nonautologous Red Blood Cells into Peripheral Vein, Percutaneous Approach (ICD-10-PCS; 2019-04-11)
PROC: 0QS704Z Reposition Left Upper Femur with Internal Fixation Device, Open Approach (ICD-10-PCS; principal; 2019-04-12 08:30)
DX: S72.142A Displaced intertrochanteric fracture of left femur, initial encounter for closed fracture (principal); N17.9 Acute kidney failure, unspecified; Z79.01 Long term (current) use of anticoagulants; Z79.899 Other long term (current) drug therapy; Z88.0 Allergy status to penicillin; Z88.2 Allergy status to sulfonamides; Z88.8 Allergy status to other drugs, medicaments and biological substances; J44.9 Chronic obstructive pulmonary disease, unspecified; I48.91 Unspecified atrial fibrillation; I10 Essential (primary) hypertension; K44.9 Diaphragmatic hernia without obstruction or gangrene; M10.9 Gout, unspecified; M81.0 Age-related osteoporosis without current pathological fracture; K57.30 Diverticulosis of large intestine without perforation or abscess without bleeding; R91.1 Solitary pulmonary nodule; E78.5 Hyperlipidemia, unspecified; K64.8 Other hemorrhoids; D69.6 Thrombocytopenia, unspecified; E87.6 Hypokalemia; E83.51 Hypocalcemia; K21.9 Gastro-esophageal reflux disease without esophagitis; W18.30XA Fall on same level, unspecified, initial encounter; Y92.009 Unspecified place in unspecified non-institutional (private) residence as the place of occurrence of the external cause

== ENCOUNTER 2019-04-14 13:48 | Inpatient (IN) | payer MEDICARE ==
[~2019-04-14] VITALS: Ht 160 cm; Wt 72.3 kg
[~2019-04-14 13:48] MED LIST changes: +LEVO137T2 PO; +NITR100C2 PO; +PANT40TA3 PO; -VALA1TAB2 PO; +VALA1TAB64 PO; +VITA100T28 PO; +VITA1CAP25 PO
[2019-04-14] MEDS ORDERED: FERR325T18 PO (14:19)
[2019-04-14 16:00] VITALS: BP 127/60
[2019-04-14] MEDS ORDERED: MOM 30ML SUSPENSION UDC PO PRN (17:00)
[2019-04-14] MEDS ORDERED: LEVALBUTEROL 1.25 MG/0.5 ML CONCENTRATE NEB INH PRN (17:00)
[2019-04-14] MEDS ORDERED: BISACODYL 5 MG TAB PO PRN (17:00)
[2019-04-14] MEDS ORDERED: traZODone 25MG PER 1/2 TABLET PO PRN (18:45)
[2019-04-14] MEDS ORDERED: traZODone 25MG PER 1/2 TABLET PO ONE (18:45)
[2019-04-14] MEDS ORDERED: FUROSEMIDE 20 MG/2 ML VIAL (J1940) IV ONE (19:00)
[2019-04-14] MEDS: IPRATROPIUM 0.5MG/ALBUTEROL 2.5MG INH SOL UD 3ML (DUONEB)(J7620) NEB SCH ×2 (19:57→21:12)
[2019-04-14] MEDS: SYMBICORT 80/4.5MCG INHALER 6GM INH SCH (19:57)
[2019-04-14 20:00] VITALS: BP 135/62
[2019-04-14] MEDS: ACETAMINOPHEN 500 MG TAB PO SCH (21:00)
[2019-04-14] MEDS: APIXABAN 5 MG TAB (ELIQUIS) PO SCH (21:00)
[2019-04-14] MEDS: PANTOPRAZOLE 40MG TAB (PROTONIX) PO SCH (21:00)
[2019-04-14] MEDS ORDERED: FERROUS GLUCONATE 324 MG TAB PO SCH (21:00)
[2019-04-14] MEDS: FERROUS SULFATE 325MG TAB PO SCH (21:00)
[2019-04-14] MEDS: METOPROLOL TART 12.5 MG PER 1/2 TAB PO SCH (21:00)
[2019-04-14] MEDS: SENNA 8.6 MG TAB (SENOKOT) PO SCH (21:00)
[2019-04-14] MEDS ORDERED: QUEtiapine FUMARATE 25 MG TAB PO ONE (21:00)
[2019-04-14] MEDS: traZODone 25MG PER 1/2 TABLET PO SCH (21:00)
[2019-04-14] MEDS: DOCUSATE SODIUM 100 MG CAP PO SCH (21:00)
--- NOTE | 2019-04-14 21:21 | ECHO ---
DATE OF PROCEDURE: 04/14/2019 REFERRING PHYSICIAN: Dr. Gabriel INDICATION: Congestive heart failure. Height 160 cm, weight 83 kg. DIMENSIONS: IVS: 0.9 LV: 4.4 LVPW: 1.1 LA: 3.6 Aorta: 3.3 IVC: 1.2 Mitral E wave velocity: 65 A wave: 76 E prime septal: 8.8 E prime lateral: 7.5 FINDINGS: The study is of fair technical quality. The patient is in sinus rhythm. Left ventricle is of normal size and systolic function with estimated LVEF 60-65%. Right ventricle appears mildly dilated. Both atria appear grossly normal. Aortic valve is mildly sclerotic but mobility of leaflets is preserved. There are also mild degenerative abnormalities of mitral valve with mitral annular calcifications. Mobility of leaflets is preserved. Tricuspid valve appears normal. Pulmonic valve was not well seen. There is pericardial fat pad. Inferior vena cava is normal size. Aortic root is normal. Aortic arch and abdominal aorta were not well seen. Doppler interrogation reveals no aortic stenosis or insufficiency. There is also no mitral stenosis or insufficiency. Mild tricuspid insufficiency is seen. Calculated pulmonary artery pressure is at least in mid 50s corresponding to moderate pulmonary hypertension. Mitral inflow pattern and tissue Doppler imaging of mitral annulus revealed grade 1 diastolic dysfunction. CONCLUSIONS: 1. The study is of fair technical quality. 2. Normal left ventricular (LV) size with grossly preserved LV systolic function and grade 1 diastolic dysfunction. 3. No hemodynamically significant valvular disease. 4. Dilated right ventricle with at least moderate pulmonary hypertension. 5. Normal central venous pressure. COMMENT: Subacute bacterial endocarditis (SBE) prophylaxis is not recommended. MTDD
[2019-04-14] MEDS ORDERED: diphenhydrAMINE INJ 50MG/ML VIAL (J1200) IV ONE (22:45)
[2019-04-15 03:10] VITALS: BP 130/66
[2019-04-15 06:00] VITALS: BP 118/58
[2019-04-15] MEDS: LEVOTHYROXINE 137MCG TABLET (0.137MG) PO SCH ×2 (06:14→06:15)
[2019-04-15] MEDS: SYMBICORT 80/4.5MCG INHALER 6GM INH SCH ×2 (07:11→20:33)
[2019-04-15] MEDS: TIOTROPIUM INHALER/CAPSULE (SPIRIVA) INH SCH (07:11)
[2019-04-15] MEDS: IPRATROPIUM 0.5MG/ALBUTEROL 2.5MG INH SOL UD 3ML (DUONEB)(J7620) NEB SCH ×4 (07:11→20:00)
[2019-04-15 07:41] LABS: HEMATOCRIT 24.6 % (36.0-47.0); MEAN CORPUSCULAR HEMOGLOBIN 28.4 pg (27.0-33.0); MEAN CORPUSCULAR HGB CONC 32.5 g/dl (32.0-36.5); MEAN CORPUSCULAR VOLUME 87.2 fl (80.0-96.0); RED BLOOD COUNT 2.82 10^6/uL (4.00-5.40); WHITE BLOOD COUNT 7.2 10^3/uL (4.0-10.0)
[2019-04-15 08:09] LABS: ALBUMIN 1.8 GM/DL (3.2-5.2); BILIRUBIN,TOTAL 1.4 MG/DL (0.2-1.0); CALCIUM LEVEL 6.1 MG/DL (8.8-10.2); CREATININE FOR GFR 1.59 MG/DL (0.55-1.30); GLOMERULAR FILTRATION RATE 33.8 (>39); POTASSIUM SERUM 3.3 MEQ/L (3.5-5.1)
[2019-04-15] MEDS ORDERED: NITROFURANTOIN (MACROBID) 100 MG CAP PO SCH (09:00)
[2019-04-15 09:30] LABS: PLATELET COUNT, AUTOMATED 45 10^3/uL (150-450)
[2019-04-15 09:50] LABS: LYMPHOCYTES 20 % (16-44); METAMYELOCYTES 1 % (0-0); MONOCYTES 20 % (0-5); MYELOCYTES 4 % (0-0); NEUTROPHILS 55 % (28-66); PLATELET ESTIMATE DECREASED (NORMAL)
[2019-04-15 09:51] LABS: ANISOCYTOSIS 1+
[2019-04-15] MEDS: SIMVASTATIN 20 MG TAB PO SCH (09:51)
[2019-04-15] MEDS: THIAMINE 100 MG TAB PO SCH (09:51)
[2019-04-15] MEDS: METOPROLOL TART 12.5 MG PER 1/2 TAB PO SCH ×2 (09:51→21:52)
[2019-04-15] MEDS: APIXABAN 5 MG TAB (ELIQUIS) PO SCH ×2 (09:51→21:52)
[2019-04-15] MEDS: FERROUS SULFATE 325MG TAB PO SCH ×2 (09:51→21:51)
[2019-04-15] MEDS: DOCUSATE SODIUM 100 MG CAP PO SCH ×2 (09:51→21:51)
[2019-04-15] MEDS: PANTOPRAZOLE 40MG TAB (PROTONIX) PO SCH ×2 (09:51→21:52)
[2019-04-15] MEDS: SPIRONOLACTONE 25 MG TAB PO SCH (09:52)
[2019-04-15] MEDS: CALCITRIOL 0.25 MCG CAP (S0169) PO SCH (09:52)
[2019-04-15] MEDS: FOLIC ACID 1 MG TAB PO SCH (09:52)
[2019-04-15] MEDS: ACETAMINOPHEN 500 MG TAB PO SCH ×3 (09:53→21:53)
[2019-04-15] MEDS: AMIODARONE 200 MG TAB (PACERONE) PO SCH (09:53)
[2019-04-15] MEDS: allopurinoL 100 MG TAB PO SCH (09:53)
[2019-04-15] MEDS ORDERED: FUROSEMIDE 20 MG/2 ML VIAL (J1940) IV ONE (12:45)
[2019-04-15] MEDS: SALIVA SUBSTITUTE(MOUTHKOTE) BTL MT SCH ×3 (13:00→21:00)
[2019-04-15 14:35] VITALS: BP 105/52
--- NOTE | 2019-04-15 15:07 | HPEPDOC ---
Advertising Columnist Note DATE OF ADMISSION: 04-14-19 SOURCE OF ADMISSION INFORMATION: [facility] records and patient CHIEF COMPLAINT: hip fracture HISTORY OF PRESENT ILLNESS: 73F pmh COPD, Afib on Eliquis, probable CHF, HTN, ITP, HLD, chronic UTIs, CKD, esophageal stenosis who fell at home having slipped on ice and represented to [facility] ED [id number] showed, Acute comminuted fracture left femoral neck and intertrochanteric region with posterior displacement of the proximal femoral shaft relative to the femoral neck Soft tissue hematoma surrounds the fracture site. She was evaluated by orthopedics who performed an ORIF on 04-12-19 after which she had a drop in her Hgb requiring 4 blood transfusions. She had FREDY requiring IVF and delirium thought to be due to anesthesia. She was evaluated by therapy noted to be well below her baseline in mobility and ADls and deemed medically appropriate for discharge to ARU on 04-14-19. On initial eval patient reported feeling short of breath lying flat. IVF that was running was discontinued. REVIEW OF SYSTEMS: The following is a completed review of systems and has been reviewed. Review of systems otherwise unremarkable. PAIN: Patient self reports no pain at rest EYES: No recent vision changes EARS, NOSE, & THROAT: + throat pain, (-) dysphagia, or rhinorrhea CARDIOVASCULAR: Denies chest pain or palpitations PULMONARY: +dyspnea GASTROINTESTINAL: Denies constipation/diarrhea GENITOURINARY: denies dysuria MUSCULOSKELETAL: left hip fracture NEUROLOGICAL:no tremor or seizure activity HEMATOLOGICAL: +easy bruising SKIN: +left hip incision and scattered ecchymosis PSYCHIATRIC: +confused All other review of systems found to be negative. PAST MEDICAL HISTORY: as per HPI PAST SURGICAL HISTORY: Tonsillectomy-adenoidectomy, appendectomy, total thyroidectomy ALLERGIES: Please see below. MEDICATIONS: Please see below. SOCIAL HISTORY: former smoker, no ETOH, or illicit drugs DIET: cardiac, fluid restrict PHYSICAL EXAMINATION: VITAL SIGNS: Please see below. GENERAL: Pleasant and cooperative. No acute distress. HEENT: PERRL. Extraocular movements intact. Clear conjunctiva CARDIOVASCULAR: Irregular rate and rhythm. No murmurs, rubs, or gallops LUNGS: +scattered wheeze ABDOMEN: Soft, nontender, nondistended. Positive bowel sounds. Normal active bowel sounds NEUROLOGICAL: Alert and oriented x3, appeared confused, but able to follow commands Cranial nerves II through XII grossly intact. Sensation grossly intact including 1st web space on left EXTREMITIES: 5-\5 strength bilateral upper extremities. 4\5 strength right lower extremity. 4/5 strength in left ankle DF, EHL, and PF (limited due to surgery) +LLE edema (-) Homans SKIN: left hip and groin with ecchymosiis, scattered ecchymosis bilat UE, left hip incision with edema and ecchymosis LABORATORY DATA: Please see below. IMAGING:Imaging documentation personally reviewed by record FUNCTIONAL STATUS: Premorbid: Modified Independent with all activities of daily life as well as mobility On Admission: Maximum assistance for upper body dressing, bed chair and wheelchair transfers, toilet transfers, ambulation x 3 ft. GOALS: Mod-I household distances with a RW, stairs, functional transfers, toileting, dressing, bathing, assess for DMEs, medical optimization, caregiver training. ASSESSMENT:73-year-old F with past medical history of Afib who presents status post fall with left hip fracture PLAN: 1. 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 Ortho: s/p left hip ORIF, ortho consulted 3. Neuro: patient with delirium and aggitation- trazodone ordered prn 4. Cardiac: hx of Afib c/u eliquis, amiodarone, metoprolol, will start back verapamil- medicine consulted to assist in management -recent ECHO showing grade 1 diastolic CHF- will fluid restrict with low salt diet -BNP ordered, will give 1x 20mg Lasix for concern for fluid overload after receiving 4 units rbcs and multiple IVFs 5. Resp: Hx of COPD, will order Duonebs standing, monitor for infection -encourage incentive spirometry -c/u Symbicort 6. Renal: FREDY on CKD s/p IVF, monitor and will consider renal consult 7. Heme: patient with significant post-op anemia with large left groin hematoma, will order FOBT, transfuse if <8 8. DVT ppx: on Eliquis 5 BID 9. Pain: Tylenol, oxycodone 10. GI px: protonix 40B BID 11. : hx of recurrent UTIs on macrobid ppx 10. Dispo: TBD POST ADMISSION PHYSICIAN EVALUATION: Medical and functional status: Description of medical status, medical assessment: As above. Rehabilitation diagnosis and current and prior cold morbid medical conditions as above. Risk of complications and plans to mitigate them as above. Description of functional status current status is as above. Prior status as above. Status compared to preadmission: There are no clinically significant differences between the patient's current status and the information described on the preadmission screening document. Treatment plan anticipated: Treatment plan is as described above. Required disciplines including physical therapy, occupational therapy, others as noted above. Intensity of services: 3 hours a day, 6 days a week. Special considerations: There are no specific special or safety considerations that would likely preclude immediate implementation of an intensive rehabilitation program or subsequently influence the plan of care ATTESTATION: Considering all the information above, it is my best judgment that this patient requires intensive rehabilitation therapy as described above and an inpatient hospital environment due to the complexity of nursing, medical, and rehabilitation needs required by the patient. Furthermore, this patient can reasonably be expected to participate in an benefit from an inpatient rehabilitation stay with an interdisciplinary team approach to the delivery of rehabilitation care under the direction and supervision of rehabilitation physician PROGNOSIS: Excellent ESTIMATED LENGTH OF STAY:14-16 days. PROJECTED DISCHARGE DESTINATION: Home with family support and any durable medical equipment required to increase functional safety and mobility TIME SPENT COUNSELING AND COORDINATING INITIAL CARE: Greater than 70 minutes. Vital Signs Vital Sign - Last 24 Hours 04/14/19 04/14/19 04/14/19 04/14/19 16:00 20:00 20:30 21:00 Temp 99.2 98.2 Pulse 102 118 118 Resp 18 18 B/P (MAP) 127/60 (82) 135/62 (86) 135/62 Pulse Ox 98 98 O2 Delivery Room Air Room Air O2 Flow Rate 1.5 04/14/19 04/15/19 04/15/19 04/15/19 21:12 00:47 01:25 03:10 Temp 97.8 Pulse 105 104 98 Resp 20 30 B/P (MAP) 130/66 (87) Pulse Ox 93 93 94 O2 Delivery Nasal Cannula Nasal Cannula Nasal Cannula Nasal Cannula O2 Flow Rate 2.0 2.0 1.5 1.0 04/15/19 04/15/19 04/15/19 03:58 06:00 09:51 Temp 97.7 Pulse 94 113 Resp 22 19 B/P (MAP) 118/58 (78) 124/67 Pulse Ox 95 O2 Delivery Nasal Cannula O2 Flow Rate 1.0 Laboratory Data CBC/BMP Laboratory Tests 04/15/19 06:42 Labs 24H Laboratory Tests 2 04/14/19 19:25: EH-Mkh-N-Type Natriuretic Peptide 7813H 04/15/19 06:42: Immature Granulocyte % (Auto) , Monocytes # (Auto) , Nucleated Red Blood Cells % (auto) 0.7H, Neutrophils 55, Lymphocytes (Manual) 20, Monocytes (Manual) 20H, Metamyelocytes 1H, Myelocytes 4H, Anisocytosis 1+, Platelet Estimate DECREASED, Immature Platelet Fraction 10.2H, Anion Gap 14, Glomerular Filtration Rate 33.8L, Calcium Level 6.1L, Total Bilirubin 1.4H, Aspartate Amino Transf (AST/SGOT) 19, Alanine Aminotransferase (ALT/SGPT) 19, Alkaline Phosphatase 49, Total Protein 5.0L, Albumin 1.8L, Albumin/Globulin Ratio 0.56L Microbiology Microbiology 04/15/19 Eye/Ear/Nose/Throat Culture, Received Pending Home Medications Scheduled Allopurinol (Allopurinol) 100 Mg Tab, 100 MG PO DAILY, (Reported) Amiodarone HCl (Pacerone) 100 Mg Tab, 200 MG PO DAILY, (Reported) Apixaban (Eliquis) 5 Mg Tab, 5 MG PO BID, (Reported) Cholecalciferol (Vitamin D3) (Vitamin D3) 50,000 Unit Capsule, 50,000 UNIT PO Q30D, (Reported) TAKES ON THE FIRST SATURDAY OF THE MONTH Denosumab Injection (Prolia) 60 Mg/1 Ml Syringe, 60 MG SC [id number], (Reported) Ferrous Sulfate (Ferrous Sulfate) 325 Mg Tablet, 325 MG PO BID Fluticasone/Vilanterol (Breo Ellipta 200-25 Mcg INH) 1 Each Blst.w.dev, 1 PUFF INH DAILY, (Reported) Folic Acid (Folic Acid) 1 Mg Tab, 1 MG PO DAILY, (Reported) Levothyroxine Sodium (Levothyroxine Sodium) 137 Mcg Tablet, 137 MCG PO DAILY, (Reported) Metoprolol Tartrate (Metoprolol Tartrate) 25 Mg Tab, 12.5 MG PO BID, (Reported) Nitrofurantoin Monohyd/M-Cryst (Nitrofurantoin [place]-Mcr 100 mg) 100 Mg Capsule, 100 MG PO DAILY, (Reported) Pantoprazole Sodium (Pantoprazole Sodium) 40 Mg Tablet.dr, 40 MG PO BID, (Reported) Simvastatin (Simvastatin) 20 Mg Tab, 20 MG PO DAILY, (Reported) Spironolactone (Spironolactone) 25 Mg Tab, 12.5 MG PO DAILY, (Reported) Thiamine Mononitrate (Vit B1) (Vitamin B-1) 100 Mg Tablet, 100 MG PO DAILY, (Reported) Tiotropium [place] (Spiriva) 18 Mcg Cap, 2 PUFFS INH DAILY, (Reported) Verapamil HCl (Verapamil ER) 120 Mg Tab, 120 MG PO BID, (Reported) Scheduled PRN Albuterol Sulfate (Albuterol Sulfate Hfa) 8.5 Gm Hfa.aer.ad, 1 INH INH q4-6h PRN for SOB/WHEEZING, (Reported) Allergies Coded Allergies: tetracycline (Verified Allergy, Severe, swelling, peeling of the tongue, 02/19/19) zolpidem (Verified Allergy, Severe, respiratory distress, 02/19/19) Sulfa (Sulfonamide Antibiotics) (Verified Allergy, Intermediate, hives, 02/19/19) Penicillins (Verified Adverse Reaction, Intermediate, N/V, 02/19/19) tramadol (Verified Adverse Reaction, Intermediate, N/V, 02/19/19) A-FIB/CHADSVASC A-FIB History Current/History of A-Fib/PAF?: Yes Current PO Anticoag Therapy: Yes CHANDANA BRICEÑO MD Apr 15, 2019 15:07
[2019-04-15] MEDS ORDERED: POTASSIUM CHLORIDE 10 MEQ SR TABLET PO ONE (15:15)
--- NOTE | 2019-04-15 16:50 | HPEPDOC ---
General Date of Admission Apr 14, 2019 at 15:50 Date of Service: Apr 15, 2019 Attending Physician: STEPHANY FELIPE MD Chief Complaint The patient is a 73-year-old female admitted with a reason for visit of Left Intertrochanteric Hip Fx. Source: Patient Exam Limitations: No limitations Associated Symptoms: Denies Symptoms History of Present Illness Patient has been transferred to Rehab. following surgery for a Left intertrochanteric Hip Fracture. Patient stated she slipped outside of her home on ice 04/12/19; she crawled into her home to get help. Patient denied loss of consciousness following the fall. She was taken to the ED by ambulance. Admitted to the hospital and had surgical intervention on 04/12/19. She stated her left hip pain is aching, a 4-5 on a 10 point scale; pain does not radiate and has improved since onset. Please see review of systems below for pertinent negatives. Medically, she is stable today; Medications and past Medical history reviewed. While in the ARU; nursing reported patient has a sore throat and has white patches on her throat. Patient's daughter is concerned she may need a urine culture. Daughter stated mother has chronic UTIs and typically has abnormal cultures. Daughter is concerned her mother has not had a bowel movement since admission. Patient reassessed in the afternoon by hospitalist staff due to increased BNP, weight gain and shortness of breath. Home Medications Scheduled Allopurinol (Allopurinol) 100 Mg Tab, 100 MG PO DAILY, (Reported) Amiodarone HCl (Pacerone) 100 Mg Tab, 200 MG PO DAILY, (Reported) Apixaban (Eliquis) 5 Mg Tab, 5 MG PO BID, (Reported) Cholecalciferol (Vitamin D3) (Vitamin D3) 50,000 Unit Capsule, 50,000 UNIT PO Q30D, (Reported) TAKES ON THE FIRST SATURDAY OF THE MONTH Denosumab Injection (Prolia) 60 Mg/1 Ml Syringe, 60 MG SC [id number], (Reported) Ferrous Sulfate (Ferrous Sulfate) 325 Mg Tablet, 325 MG PO BID Fluticasone/Vilanterol (Breo Ellipta 200-25 Mcg INH) 1 Each Blst.w.dev, 1 PUFF INH DAILY, (Reported) Folic Acid (Folic Acid) 1 Mg Tab, 1 MG PO DAILY, (Reported) Levothyroxine Sodium (Levothyroxine Sodium) 137 Mcg Tablet, 137 MCG PO DAILY, (Reported) Metoprolol Tartrate (Metoprolol Tartrate) 25 Mg Tab, 12.5 MG PO BID, (Reported) Nitrofurantoin Monohyd/M-Cryst (Nitrofurantoin Richardson-Mcr 100 mg) 100 Mg Capsule, 100 MG PO DAILY, (Reported) Pantoprazole Sodium (Pantoprazole Sodium) 40 Mg Tablet.dr, 40 MG PO BID, (Reported) Simvastatin (Simvastatin) 20 Mg Tab, 20 MG PO DAILY, (Reported) Spironolactone (Spironolactone) 25 Mg Tab, 12.5 MG PO DAILY, (Reported) Thiamine Mononitrate (Vit B1) (Vitamin B-1) 100 Mg Tablet, 100 MG PO DAILY, (Reported) Tiotropium [place] (Spiriva) 18 Mcg Cap, 2 PUFFS INH DAILY, (Reported) Verapamil HCl (Verapamil ER) 120 Mg Tab, 120 MG PO BID, (Reported) Scheduled PRN Albuterol Sulfate (Albuterol Sulfate Hfa) 8.5 Gm Hfa.aer.ad, 1 INH INH q4-6h PRN for SOB/WHEEZING, (Reported) Allergies Coded Allergies: tetracycline (Verified Allergy, Severe, swelling, peeling of the tongue, 02/19/19) zolpidem (Verified Allergy, Severe, respiratory distress, 02/19/19) Sulfa (Sulfonamide Antibiotics) (Verified Allergy, Intermediate, hives, 02/19/19) Penicillins (Verified Adverse Reaction, Intermediate, N/V, 02/19/19) tramadol (Verified Adverse Reaction, Intermediate, N/V, 02/19/19) Social History * Smoker: former Smoker A-FIB/CHADSVASC A-FIB History Current/History of A-Fib/PAF?: Yes Current PO Anticoag Therapy: Yes Review of Systems Constitutional: Denies: Chills, Fever, Night Sweats ENT: Reports: Post Nasal Drip, Sore Throat; Denies: Head Aches, Dysphagia Pulmonary: Denies: Dyspnea, Cough Cardiovascular: Reports: Edema; Denies: Chest Pain, Palpitations, Orthopnea, Paroxysmal Noc. Dyspnea, Lt Headedness Gastrointestinal: Reports: Constipation (has not had a BM since hospital admission ) Genitourinary: Reports: Other Symptoms (chronic UTIs); Denies: Dysuria, Frequency, Incontinence, Retention Musculoskeletal: Reports: Joint Pain (Pain over left hip is 4 or 5/10 and improving since onset ) Neurological: Reports: Weakness, Numbness, Incoordination, Seizures; Denies: Change in speech, Confusion, Other Symptoms Psych: Reports: Mood Normal Physical Examination General Exam: Positive: Alert, No Acute Distress Eye Exam: Positive: PERRLA, Conjunctiva & lids normal, Sclera icteric ENT Exam: Positive: Other ENT (Pharynx inflamed with white patches ) Chest Exam: Positive: Wheezing Heart Exam: Positive: Rate Normal, Regular Rhythm, Normal S1, Normal S2, M urmurs, Rubs Abdomen Exam: Positive: Soft, Other (Large, rounded ); Negative: Tenderness Extremity Exam: Positive: Edema (2+ pedal edema bilaterally ) Skin Exam: Positive: Other skin issue (Bruising along both arms ) Neuro Exam: Positive: Normal Speech Psych Exam: Positive: Mental status NL, Mood NL Vital Signs Vital Signs Date Time Temp Pulse Resp B/P (MAP) Pulse Ox O2 Delivery O2 Flow Rate FiO2 04/15/19 09:51 113 124/67 04/15/19 06:00 97.7 19 95 Nasal Cannula 1.0 Laboratory Data Labs 24H Laboratory Tests 2 04/14/19 19:25: DV-Unp-X-Type Natriuretic Peptide 7813H 04/15/19 06:42: Immature Granulocyte % (Auto) , Monocytes # (Auto) , Nucleated Red Blood Cells % (auto) 0.7H, Neutrophils 55, Lymphocytes (Manual) 20, Monocytes (Manual) 20H, Metamyelocytes 1H, Myelocytes 4H, Anisocytosis 1+, Platelet Estimate DECREASED, Immature Platelet Fraction 10.2H, Anion Gap 14, Glomerular Filtration Rate 33.8L, Calcium Level 6.1L, Total Bilirubin 1.4H, Aspartate Amino Transf (AST/SGOT) 19, Alanine Aminotransferase (ALT/SGPT) 19, Alkaline Phosphatase 49, Total Protein 5.0L, Albumin 1.8L, Albumin/Globulin Ratio 0.56L CBC/BMP Laboratory Tests 04/15/19 06:42 Problems (1) Congestive heart failure Status: Chronic Response to Treatment: Worse Problem Text: Discussed with Dr. Frederick. Increase Lasix to 20mg IV BID for volume overload. Monitor patient's urine output for a total daily goal of 1L voided urine. BMP to be repeated 04/16/19. (2) Pedal edema Status: Chronic Response to Treatment: Worse Discussed With: Nurse, Patient Problem Text: Discussed with Dr. Frederick. Stat venous doppler ultrasound ordered of the left lower extremity. Following surgery on 04/12/19, per nursing staff patient has resumed Eliquis 5mg PO BID upon admission to the Rehab Unit. As this is the therapeutic dose of this drug, we will continue to monitor and re-assess. (3) Dyspnea Status: Acute Response to Treatment: Worse Discussed With: Nurse Problem Text: Discussed with Dr. Tay and Dr. Frederick. This afternoon, Dr. Tay reported to me that Ms. Fernandez's shortness of breath has worsened and that she has an elevated BNP; Patient has gained weight since admission. She has placed the patient on 1500cc fluid restriction and no sodium diet. Nursing and PT noted the patient has a good urine out-put following Lasix 20mg IV. Patient seen with Dr. Frederick who will make recommendations regarding diuretic adjustment(s) once patient returns from [facility]. (4) UTI (urinary tract infection) Status: Chronic Problem Text: Discussed with Dr. Tay who will switch the patient from Macrobid to Fosfomycin; dosing per pharmacy. (5) COPD (chronic obstructive pulmonary disease) Onset Date: 03/09/2014 Status: Acute Problem Text: Patient will continue home medications; DuoNeb every 4hrs per Rehab. (6) Hip fracture, left Status: Acute Response to Treatment: Stable Discussed With: Patient Plan / VTE VTE Prophylaxis Ordered?: Yes (Patient currently takes Eliquis 5mg tab twice per day) Plan Activity: Continue Current Diagnostics: Ultrasound ([facility] LLE to rule out DVT) ROSALBA QUEEN PA-C Apr 15, 2019 11:50
[2019-04-15] MEDS: FUROSEMIDE 20 MG/2 ML VIAL (J1940) IV SCH (17:18)
--- NOTE | 2019-04-15 18:38 | IPNPDOC ---
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 She denies chest pain or dizziness. REVIEW OF SYSTEMS: The following is a completed review of systems and has been reviewed. Review of systems otherwise unremarkable. PAIN: Patient self reports no pain at rest EYES: No recent vision changes EARS, NOSE, & THROAT: + throat pain, (-) dysphagia, or rhinorrhea CARDIOVASCULAR: Denies chest pain or palpitations PULMONARY: +dyspnea GASTROINTESTINAL: Denies constipation/diarrhea GENITOURINARY: denies dysuria MUSCULOSKELETAL: left hip fracture NEUROLOGICAL:no tremor or seizure activity HEMATOLOGICAL: +easy bruising SKIN: +left hip incision and scattered ecchymosis PSYCHIATRIC: +confused All other review of systems found to be negative. PHYSICAL EXAMINATION: VITAL SIGNS: Please see below. GENERAL: Pleasant and cooperative. No acute distress. HEENT: PERRL. Extraocular movements intact. Clear conjunctiva CARDIOVASCULAR: Irregular rate and rhythm. No murmurs, rubs, or gallops LUNGS: +scattered wheeze ABDOMEN: Soft, nontender, mildly distended. Positive bowel sounds. Normal active bowel sounds NEUROLOGICAL: Alert and oriented x3, appeared confused, but able to follow commands Cranial nerves II through XII grossly intact. Sensation grossly intact including 1st web space on left EXTREMITIES: 5-\5 strength bilateral upper extremities. 4\5 strength right lower extremity. 4/5 strength in left ankle DF, EHL, and PF (limited due to surgery) +LLE edema (-) Homans SKIN: left hip and groin with ecchymosis, scattered ecchymosis bilat UE, left hip incision with edema and ecchymosis ASSESSMENT:73-year-old F with past medical history of Afib who presents status post fall with left hip fracture PLAN: 1. Rehab- PT- WBAt to LLE, advance agit training, strengthen bilat LE, maintain ROM and stretch OT- advance ADLs, scapular stabilization exercises CANARY BREEDER for hx of esophageal strictures and cog eval 2. Ortho: s/p left hip ORIF, ortho consulted 3. Neuro: patient with delirium and agitation- trazodone ordered prn 4. Cardiac: hx of Afib c/u eliquis, amiodarone, metoprolol, will start back verapamil- medicine consulted to assist in management -recent ECHO showing grade 1 diastolic CHF, now with acute CHF exacerbation- c/u IV lasix, 1500cc fluid restrict and no salt diet- responding and medicine recs appreciated 5. Resp: Hx of COPD, c/u Duonebs standing, monitor for infection -encourage incentive spirometry -c/u Symbicort 6. Renal: FREDY on CKD s/p IVF, monitor and will consider renal consult 7. Heme: patient with significant post-op anemia s/p 4 units rbcs on inpatient with large left groin hematoma, ordered FOBT, transfuse if <8 8. DVT ppx: on Eliquis 5 BID 9. Pain: Tylenol, oxycodone 10. GI px: protonix 40B BID 11. : hx of recurrent UTIs on macrobid ppx, however given Soap Maker function will switch to fosfomycin 3g q7days as off-label prophylactic dosing 10. Dispo: TBD Allergies Coded Allergies: tetracycline (Verified Allergy, Severe, swelling, peeling of the tongue, 02/19/19) zolpidem (Verified Allergy, Severe, respiratory distress, 02/19/19) Sulfa (Sulfonamide Antibiotics) (Verified Allergy, Intermediate, hives, 02/19/19) Penicillins (Verified Adverse Reaction, Intermediate, N/V, 02/19/19) tramadol (Verified Adverse Reaction, Intermediate, N/V, 02/19/19) Vital Signs Vital Signs Date Time Temp Pulse Resp B/P (MAP) Pulse Ox O2 Delivery O2 Flow Rate FiO2 04/15/19 14:35 98.2 110 22 105/52 (69) 91 Room Air 04/15/19 06:00 1.0 Laboratory Data CBC/BMP Laboratory Tests 04/15/19 06:42 Labs 24H Laboratory Tests 2 04/14/19 19:25: GX-[id number]-Type Natriuretic Peptide 7813H 04/15/19 06:42: Immature Granulocyte % (Auto) , Monocytes # (Auto) , Nucleated Red Blood Cells % (auto) 0.7H, Neutrophils 55, Lymphocytes (Manual) 20, Monocytes (Manual) 20H, Metamyelocytes 1H, Myelocytes 4H, Anisocytosis 1+, Platelet Estimate DECREASED, Immature Platelet Fraction 10.2H, Anion Gap 14, Glomerular Filtration Rate 33.8L, Calcium Level 6.1L, Total Bilirubin 1.4H, Aspartate Amino Transf (AST/SGOT) 19, Alanine Aminotransferase (ALT/SGPT) 19, Alkaline Phosphatase 49, Total Protein 5.0L, Albumin 1.8L, Albumin/Globulin Ratio 0.56L Microbiology Microbiology 04/15/19 Eye/Ear/Nose/Throat Culture, Received Pending Current Medications Current Medications Current Medications Medications (Trade) Dose Ordered Sig/Ady Route PRN Reason Start Time Stop Time Status Last Admin Dose Admin Acetaminophen (Tylenol Tab) 1,000 mg TID PO 04/14/19 21:00 04/15/19 15:35 Albuterol/ Ipratropium (Duoneb (Ipr 0.5mg/Alb 2.5mg)) 3 ml RQID NEB 04/14/19 20:00 04/14/19 21:12 Allopurinol (Zyloprim) 100 mg DAILY PO 04/15/19 09:00 04/15/19 09:53 Amiodarone HCl (Pacerone, Cordarone) 200 mg DAILY PO 04/15/19 09:00 04/15/19 09:53 Apixaban (Eliquis) 5 mg BID PO 04/14/19 21:00 04/15/19 09:51 Bisacodyl (Dulcolax Tab) 5 mg DAILYPRN PRN PO CONSTIPATION 04/14/19 17:00 Budesonide/ Formoterol Fumarate (Symbicort 80/ 4.5mcg) 2 puff BID INH 04/14/19 21:00 04/15/19 07:11 Calcitriol (Rocaltrol) 0.5 mcg DAILY PO 04/15/19 09:00 04/15/19 09:52 Docusate Sodium (Colace) 100 mg BID PO 04/14/19 21:00 04/15/19 09:51 Ferrous Gluconate (Fergon) 324 mg BID PO 04/14/19 21:00 04/14/19 18:57 DC Ferrous Sulfate (Ferrous Sulfate) 325 mg BID PO 04/14/19 21:00 04/15/19 09:51 Folic Acid (Folic Acid) 1 mg DAILY PO 04/15/19 09:00 04/15/19 09:52 Fosfomycin Tromethamine (Monurol) 3 gm Q7D PO 04/15/19 21:00 Furosemide (LASIX injection) 20 mg BID@09,17 IV 04/15/19 17:00 04/15/19 17:18 Levalbuterol HCl (Xopenex Neb) 1.25 mg Q6HP PRN INH SOB/WHEEZING 04/14/19 17:00 04/14/19 22:31 Levothyroxine Sodium (Synthroid) 137 mcg DAILY@06 PO 04/15/19 06:00 04/15/19 06:15 Magnesium Hydroxide (Milk Of Magnesia) 30 ml DAILYPRN PRN PO CONSTIPATION 04/14/19 17:00 Metoprolol Tartrate (Lopressor) 12.5 mg BID PO 04/14/19 21:00 04/15/19 12:36 DC 04/15/19 09:51 Metoprolol Tartrate (Lopressor) 12.5 mg BID PO 04/15/19 21:00 Miscellaneous (Unresolved Clarification Entry) SEE LABEL COMMENTS DAILY XX 04/14/19 09:00 04/15/19 12:43 DC Nitrofurantoin Monoh/Nitrofur Macro (Macrobid) 100 mg DAILY PO 04/15/19 09:00 04/15/19 11:03 DC Ondansetron HCl (Zofran) 4 mg Q6HP PRN PO NAUSEA 04/14/19 17:00 Oxycodone HCl (Roxicodone, Oxyir) 5 mg Q4HP PRN PO PAIN 04/14/19 17:00 Pantoprazole Sodium (Protonix) 40 mg BID PO 04/14/19 21:00 04/15/19 09:51 Saliva Substitute (Mouthkote) 2 sprays QID MT 04/15/19 13:00 04/15/19 17:18 Senna (Senokot) 1 tab QHS PO 04/14/19 21:00 Simvastatin (Zocor) 20 mg DAILY PO 04/15/19 09:00 04/15/19 09:51 Spironolactone (Aldactone) 25 mg QAM PO 04/15/19 09:00 04/15/19 09:52 Thiamine HCl (Thiamine HCl) 100 mg DAILY PO 04/15/19 09:00 04/15/19 09:51 Tiotropium [place] (Spiriva Handihaler) 1 inhalation DAILY@08 INH 04/15/19 08:00 04/15/19 07:11 Trazodone HCl (Desyrel) 25 mg Q6H PRN PO AGITATION 04/14/19 18:45 Trazodone HCl (Desyrel) 25 mg QHS PO 04/14/19 21:00 Verapamil HCl (Isoptin-Sr, Calan Sr) 120 mg BID PO 04/15/19 21:00 CHANDANA BRICEÑO MD Apr 15, 2019 18:38
[2019-04-15 20:30] VITALS: BP 115/60
[2019-04-15] MEDS: traZODone 25MG PER 1/2 TABLET PO SCH (21:53)
[2019-04-15] MEDS: VERAPAMIL 120 MG SR TAB PO SCH (21:53)
[2019-04-15] MEDS: SENNA 8.6 MG TAB (SENOKOT) PO SCH (21:53)
[2019-04-15] MEDS: FOSFOMYCIN TROMETHAMINE 3 GM POWDER PACKET (MONUROL) PO SCH (21:53)
[2019-04-16 05:00] VITALS: BP 105/61
[2019-04-16] MEDS: LEVOTHYROXINE 137MCG TABLET (0.137MG) PO SCH (05:47)
[2019-04-16 07:05] LABS: HEMATOCRIT 25.7 % (36.0-47.0); HEMOGLOBIN 8.2 g/dl (12.0-15.5); MEAN CORPUSCULAR HEMOGLOBIN 28.4 pg (27.0-33.0); MEAN CORPUSCULAR HGB CONC 31.9 g/dl (32.0-36.5); MEAN CORPUSCULAR VOLUME 88.9 fl (80.0-96.0); RED BLOOD COUNT 2.89 10^6/uL (4.00-5.40)
[2019-04-16 07:09] LABS: PLATELET COUNT, AUTOMATED 44 10^3/uL (150-450)
[2019-04-16] MEDS: TIOTROPIUM INHALER/CAPSULE (SPIRIVA) INH SCH (07:34)
[2019-04-16] MEDS: IPRATROPIUM 0.5MG/ALBUTEROL 2.5MG INH SOL UD 3ML (DUONEB)(J7620) NEB SCH ×4 (07:34→20:16)
[2019-04-16] MEDS: SYMBICORT 80/4.5MCG INHALER 6GM INH SCH ×2 (07:35→21:00)
[2019-04-16 07:40] LABS: ANISOCYTOSIS 1+; CALCIUM LEVEL 6.1 MG/DL (8.8-10.2); CREATININE FOR GFR 1.44 MG/DL (0.55-1.30); GLOMERULAR FILTRATION RATE 37.9 (>39); LYMPHOCYTES 15 % (16-44); METAMYELOCYTES 2 % (0-0); MONOCYTES 21 % (0-5); MYELOCYTES 2 % (0-0); NEUTROPHILS 60 % (28-66); PLATELET ESTIMATE MARKED DECREASE (NORMAL); POTASSIUM SERUM 3.4 MEQ/L (3.5-5.1)
[2019-04-16 07:41] LABS: POLYCHROMASIA 1+
--- NOTE | 2019-04-16 07:49 | REP ---
Clinical: Pain and swelling . Technique: Jones scale and color Doppler evaluation using linear high frequency transducer. Findings: Ultrasound examination of the left lower extremity deep venous structures from the common femoral vein to the popliteal vein demonstrates normal compressibility flow and wave patterns in response to respiration and augmentation. There is no evidence for deep venous thrombosis. Impression: No evidence for deep venous thrombosis. Electronically Signed by Adiel David MD 04/15/2019 04:54 P
[2019-04-16] MEDS: AMIODARONE 200 MG TAB (PACERONE) PO SCH (08:14)
[2019-04-16] MEDS: FUROSEMIDE 20 MG/2 ML VIAL (J1940) IV SCH ×2 (08:14→18:00)
[2019-04-16] MEDS: SIMVASTATIN 20 MG TAB PO SCH (08:14)
[2019-04-16] MEDS: APIXABAN 5 MG TAB (ELIQUIS) PO SCH ×2 (08:14→21:59)
[2019-04-16] MEDS: FOLIC ACID 1 MG TAB PO SCH (08:14)
[2019-04-16] MEDS: FERROUS SULFATE 325MG TAB PO SCH ×2 (08:15→22:00)
[2019-04-16] MEDS: oxyCODONE 5MG TAB PO PRN (08:15)
[2019-04-16] MEDS: ACETAMINOPHEN 500 MG TAB PO SCH ×3 (08:15→21:59)
[2019-04-16] MEDS: DOCUSATE SODIUM 100 MG CAP PO SCH ×2 (08:15→22:00)
[2019-04-16] MEDS: CALCITRIOL 0.25 MCG CAP (S0169) PO SCH (08:17)
[2019-04-16] MEDS: METOPROLOL TART 12.5 MG PER 1/2 TAB PO SCH ×2 (08:17→22:00)
[2019-04-16] MEDS: THIAMINE 100 MG TAB PO SCH (08:17)
[2019-04-16] MEDS: SPIRONOLACTONE 25 MG TAB PO SCH (08:17)
[2019-04-16] MEDS: allopurinoL 100 MG TAB PO SCH (08:17)
[2019-04-16] MEDS: PANTOPRAZOLE 40MG TAB (PROTONIX) PO SCH (08:17)
[2019-04-16] MEDS: SALIVA SUBSTITUTE(MOUTHKOTE) BTL MT SCH ×4 (08:18→22:01)
[2019-04-16] MEDS ORDERED: BISACODYL 10 MG SUPP PR ONE (10:00)
[2019-04-16] MEDS ORDERED: POTASSIUM CHLORIDE 10 MEQ SR TABLET PO ONE (10:00)
[2019-04-16] MEDS: BISACODYL 5 MG TAB PO SCH (10:15)
[2019-04-16] MEDS: VERAPAMIL 120 MG SR TAB PO SCH ×2 (11:02→22:00)
--- NOTE | 2019-04-16 11:31 | IPNPDOC ---
PM&R Progress Note DATE OF SERVICE: Apr 16, 2019 Computer Drafter Progress Note Subjective: Patient seen this morning lying in bed stating she feels less short of breath today. She reports she has had a bowel movement since her admission, but none h ave been recorded and refused a suppository. REVIEW OF SYSTEMS: The following is a completed review of systems and has been reviewed. Review of systems otherwise unremarkable. PAIN: Patient self reports no pain at rest EYES: No recent vision changes EARS, NOSE, & THROAT: + throat pain, (-) dysphagia, or rhinorrhea CARDIOVASCULAR: Denies chest pain or palpitations PULMONARY: +dyspnea (improving) GASTROINTESTINAL: Denies constipation/diarrhea GENITOURINARY: denies dysuria MUSCULOSKELETAL: left hip fracture NEUROLOGICAL:no tremor or seizure activity HEMATOLOGICAL: +easy bruising SKIN: +left hip incision and scattered ecchymosis PSYCHIATRIC: +confused (improving) All other review of systems found to be negative. PHYSICAL EXAMINATION: VITAL SIGNS: Please see below. GENERAL: Pleasant and cooperative. No acute distress. HEENT: PERRL. Extraocular movements intact. Clear conjunctiva CARDIOVASCULAR: Irregular rate and rhythm. No murmurs, rubs, or gallops LUNGS: +scattered wheeze ABDOMEN: Soft, nontender, mildly distended. Positive bowel sounds. Normal active bowel sounds NEUROLOGICAL: Alert and oriented x3, appeared confused, but able to follow commands Cranial nerves II through XII grossly intact. Sensation grossly intact including 1st web space on left EXTREMITIES: 5-\5 strength bilateral upper extremities. 4\5 strength right lower extremity. 4/5 strength in left ankle DF, EHL, and PF (limited due to surgery) +LLE edema (-) Homans SKIN: left hip and groin with ecchymosis, scattered ecchymosis bilat UE, left hip incision with edema and ecchymosis and serosanguineous drainage ASSESSMENT:73-year-old F with past medical history of Afib who presents status post fall with left hip fracture PLAN: 1. 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 Ortho: s/p left hip ORIF, ortho consulted 3. Neuro: patient with delirium and agitation- trazodone ordered prn 4. Cardiac: hx of Afib c/u eliquis, amiodarone, metoprolol, c/u verapamil- medicine consulted to assist in management -recent ECHO showing grade 1 diastolic CHF, with acute CHF exacerbation that is clinically improving today- c/u IV lasix, 1500cc fluid restrict and no salt diet- medicine recs appreciated -daily weight ordered 5. Resp: Hx of COPD, c/u Duonebs standing, monitor for infection -encourage incentive spirometry -c/u Symbicort 6. Renal: FREDY on CKD s/p IVF, monitor and will consider renal consult 7. Heme: patient with significant post-op anemia s/p 4 units rbcs on inpatient with large left groin hematoma, ordered FOBT (pending collection), transfuse if <8 -patient with hx of thrombocytopenia, on in-patient admission pre-op patient around 90 and received platelets at that time, trending down to 40s here on ARU, patient with moderate amount of surgical site bleeding, but Hgb stable at 8 and she is hemodynamically stable, medicine aware and will consider platelet transfusion if c/u's to drop -d/yazmin protonix as can contribute to thrombocytopenia 8. DVT ppx: on Eliquis 5 BID -Doppler negative for proximal LLE DVT 9. Pain: Tylenol, oxycodone 10. GI px: protonix on hold due to thrombocytopenia, will consider pepci d/omeprazole if FOBT is positive, otherwise will avoid H-2 blockers/PPIs 11. : hx of recurrent UTIs on macrobid ppx, however given [employer] Cq Developer function switched tp fosfomycin 3g q7days as off-label prophylactic dosing 10. Dispo: TBD Allergies Coded Allergies: tetracycline (Verified Allergy, Severe, swelling, peeling of the tongue, 02/19/19) zolpidem (Verified Allergy, Severe, respiratory distress, 02/19/19) Sulfa (Sulfonamide Antibiotics) (Verified Allergy, Intermediate, hives, 02/19/19) Penicillins (Verified Adverse Reaction, Intermediate, N/V, 02/19/19) tramadol (Verified Adverse Reaction, Intermediate, N/V, 02/19/19) Vital Signs Vital Signs Date Time Temp Pulse Resp B/P (MAP) Pulse Ox O2 Delivery O2 Flow Rate FiO2 04/16/19 09:00 18 Room Air 04/16/19 08:17 82 147/70 04/16/19 05:00 98.3 92 1.0 Laboratory Data CBC/BMP Laboratory Tests 04/16/19 06:46 Labs 24H Laboratory Tests 2 04/16/19 06:46: Immature Granulocyte % (Auto) , Monocytes # (Auto) , Nucleated Red Blood Cells % (auto) 0.9H, Neutrophils 60, Lymphocytes (Manual) 15L, Monocytes (Manual) 21H, Metamyelocytes 2H, Myelocytes 2H, Polychromasia 1+, Anisocytosis 1+, Platelet Estimate MARKED DECREASE, Immature Platelet Fraction 10.8H, Anion Gap 10, Glomerular Filtration Rate 37.9L, Calcium Level 6.1L Microbiology Microbiology 04/15/19 Eye/Ear/Nose/Throat Culture - Final, Complete Current Medications Current Medications Current Medications Medications (Trade) Dose Ordered Sig/Ady Route PRN Reason Start Time Stop Time Status Last Admin Dose Admin Acetaminophen (Tylenol Tab) 1,000 mg TID PO 04/14/19 21:00 04/16/19 08:15 Albuterol/ Ipratropium (Duoneb (Ipr 0.5mg/Alb 2.5mg)) 3 ml RQID NEB 04/14/19 20:00 04/14/19 21:12 Allopurinol (Zyloprim) 100 mg DAILY PO 04/15/19 09:00 04/16/19 08:17 Amiodarone HCl (Pacerone, Cordarone) 200 mg DAILY PO 04/15/19 09:00 04/16/19 08:14 Apixaban (Eliquis) 5 mg BID PO 04/14/19 21:00 04/16/19 08:14 Bisacodyl (Dulcolax Tab) 5 mg DAILY PO 04/16/19 09:00 04/16/19 10:15 Bisacodyl (Dulcolax Tab) 5 mg DAILYPRN PRN PO CONSTIPATION 04/14/19 17:00 Budesonide/ Formoterol Fumarate (Symbicort 80/ 4.5mcg) 2 puff BID INH 04/14/19 21:00 04/16/19 07:35 Calcitriol (Rocaltrol) 0.5 mcg DAILY PO 04/15/19 09:00 04/16/19 08:17 Docusate Sodium (Colace) 100 mg BID PO 04/14/19 21:00 04/16/19 08:15 Ferrous Gluconate (Fergon) 324 mg BID PO 04/14/19 21:00 04/14/19 18:57 DC Ferrous Sulfate (Ferrous Sulfate) 325 mg BID PO 04/14/19 21:00 04/16/19 08:15 Folic Acid (Folic Acid) 1 mg DAILY PO 04/15/19 09:00 04/16/19 08:14 Fosfomycin Tromethamine (Monurol) 3 gm Q7D PO 04/15/19 21:00 04/15/19 21:53 Furosemide (LASIX injection) 20 mg BID@09,17 IV 04/15/19 17:00 04/16/19 08:14 Levalbuterol HCl (Xopenex Neb) 1.25 mg Q6HP PRN INH SOB/WHEEZING 04/14/19 17:00 04/14/19 22:31 Levothyroxine Sodium (Synthroid) 137 mcg DAILY@06 PO 04/15/19 06:00 04/16/19 05:47 Magnesium Hydroxide (Milk Of Magnesia) 30 ml DAILYPRN PRN PO CONSTIPATION 04/14/19 17:00 04/16/19 10:14 Metoprolol Tartrate (Lopressor) 12.5 mg BID PO 04/14/19 21:00 04/15/19 12:36 DC 04/15/19 09:51 Metoprolol Tartrate (Lopressor) 12.5 mg BID PO 04/15/19 21:00 04/16/19 08:17 Miscellaneous (Unresolved Clarification Entry) SEE LABEL COMMENTS DAILY XX 04/14/19 09:00 04/15/19 12:43 DC Nitrofurantoin Monoh/Nitrofur Macro (Macrobid) 100 mg DAILY PO 04/15/19 09:00 04/15/19 11:03 DC Ondansetron HCl (Zofran) 4 mg Q6HP PRN PO NAUSEA 04/14/19 17:00 Oxycodone HCl (Roxicodone, Oxyir) 5 mg Q4HP PRN PO PAIN 04/14/19 17:00 04/16/19 08:15 Pantoprazole Sodium (Protonix) 40 mg BID PO 04/14/19 21:00 04/16/19 09:33 DC 04/16/19 08:17 Potassium Chloride (Micro-K Extencaps) 20 meq DAILY PO 04/17/19 09:00 Saliva Substitute (Mouthkote) 2 sprays QID MT 04/15/19 13:00 04/16/19 08:18 Senna (Senokot) 1 tab QHS PO 04/14/19 21:00 04/15/19 21:53 Simvastatin (Zocor) 20 mg DAILY PO 04/15/19 09:00 04/16/19 08:14 Spironolactone (Aldactone) 25 mg QAM PO 04/15/19 09:00 04/16/19 08:17 Sucralfate (Carafate) 1 gm ACHS PO 04/16/19 12:00 Thiamine HCl (Thiamine HCl) 100 mg DAILY PO 04/15/19 09:00 04/16/19 08:17 Tiotropium [place] (Spiriva Handihaler) 1 inhalation DAILY@08 INH 04/15/19 08:00 04/16/19 07:34 Trazodone HCl (Desyrel) 25 mg Q6H PRN PO AGITATION 04/14/19 18:45 Trazodone HCl (Desyrel) 25 mg QHS PO 04/14/19 21:00 04/15/19 21:53 Verapamil HCl (Isoptin-Sr, Calan Sr) 120 mg BID PO 04/15/19 21:00 04/15/19 21:53 CHANDANA BRICEÑO MD Apr 16, 2019 11:31
[2019-04-16] MEDS ORDERED: SUCRALFATE 1 GM TAB PO SCH (12:00)
[2019-04-16 14:00] VITALS: BP 111/54
--- NOTE | 2019-04-16 16:51 | IPNPDOC ---
Subjective Date Seen The patient was seen on 04/16/19. Subjective Chief Complaint/HPI Ms Fernandez seen by hospitalist group to follow-up with her medical comorbidities. Patient reoprted she is feeling better today. She is breathing better and she does not have a cough this morning. Patient urinated up to 500mL following the administration of Lasix 20mg IV. The swelling in her L ankle has improved today. Discussed the results of her venous USG - no DVT found and talked to Ms Fernandez about her current medication (Eliquis 5mg twice per day) and the indications for that medication. Advised Ms. Fernandez her throat culture was n egative. Dr. Tay was concerned with low platelets and MDS in the patient. Dr. Frederick consulted with her and advised that medical will monitor her platelet levels at this time; should her plt count fall below 40, the patient will be reassessed and a treatment plan formulated. Constitutional: Denies: Chills, Fever, Night Sweats Eyes: Denies: Pain, Vision change ENT: Denies: Head Aches, Dysphagia Skin: Denies: Rash Pulmonary: Denies: Dyspnea, Cough Cardiovascular: Denies: Chest Pain, Palpitations, Lt Headedness Gastrointestinal: Denies: Abdominal Pain Genitourinary: Denies: Dysuria Hematologic: Denies: Bleeding Excessively Musculoskeletal: Denies: Neck Pain, Back Pain Neurological: Denies: Change in speech Psych: Denies: Mood Normal Objective Physical Examination General Exam: Positive: Alert, Cooperative, No Acute Distress Eye Exam: Positive: Conjunctiva & lids normal, Sclera icteric ENT Exam: Positive: Other ENT (Pharynx inflamed with white patches ) Chest Exam: Positive: Wheezing Heart Exam: Positive: Rate Normal, Regular Rhythm, Normal S1, Normal S2, Murmurs, Rubs Abdomen Exam: Positive: Soft, Other (Large, rounded ); Negative: Tenderness Extremity Exam: Positive: Edema (2+ pedal edema bilaterally ) Skin Exam: Positive: Other skin issue (Bruising along both arms ) Neuro Exam: Positive: Normal Speech Psych Exam: Positive: Mental status NL, Mood NL Assessment /Plan Problems (1) Congestive heart failure Status: Chronic Response to Treatment: Stable Discussed With: Patient Problem Text: Check patient BP prior to administering Lasix to 20mg IV BID; nursing staff will alert medical staff if systolic BP <100 and diastolic BP <50 . Monitor patient's urine output for a total daily goal of 1L voided urine. BMP to be repeated 04/17/19. Patient is to be weighed daily (2) Pedal edema Status: Chronic Response to Treatment: Improving Discussed With: Patient Problem Text: No DVT per venous USG of LLE. (3) Dyspnea Status: Acute Response to Treatment: Improving Discussed With: Patient (4) COPD (chronic obstructive pulmonary disease) Onset Date: 03/09/2014 Status: Chronic Response to Treatment: Stable Problem Text: Patient will continue home medications; DuoNeb every 4hrs per Rehab. (5) Hip fracture, left Status: Acute Response to Treatment: Stable Discussed With: Patient Plan/VTE VTE Prophylaxis Ordered?: Yes (Patient currently takes Eliquis 5mg tab twice per day) Plan Diet: Continue Current Activity: Continue Current Therapy: PT Diagnostics: Ultrasound (USG LLE to rule out DVT) Patient will be managed per ARU. Medical comorbidities as outlined above will be monitored by hospitalist group. VS, I&O, 24H, Fishbone Vital Signs/I&O Vital Signs Date Time Temp Pulse Resp B/P (MAP) Pulse Ox O2 Delivery O2 Flow Rate FiO2 04/16/19 16:21 99.4 04/16/19 14:00 75 18 111/54 (73) 96 Room Air 04/16/19 05:00 1.0 I&O- Last 24 Hours up to 6 AM 04/16/19 06:00 Intake Total 740 ml Output Total 10 ml Balance 730 ml Laboratory Data 24H LABS Laboratory Tests 2 04/16/19 06:46: Immature Granulocyte % (Auto) , Monocytes # (Auto) , Nucleated Red Blood Cells % (auto) 0.9H, Neutrophils 60, Lymphocytes (Manual) 15L, Monocytes (Manual) 21H, Metamyelocytes 2H, Myelocytes 2H, Polychromasia 1+, Anisocytosis 1+, Platelet Estimate MARKED DECREASE, Immature Platelet Fraction 10.8H, Anion Gap 10, Glomerular Filtration Rate 37.9L, Calcium Level 6.1L, GQ-Apy-W-Type Natriuretic Peptide 33057U CBC/BMP Laboratory Tests 04/16/19 06:46 Microbiology Microbiology 04/15/19 Eye/Ear/Nose/Throat Culture - Final, Complete ROSALBA QUEEN PA-C Apr 16, 2019 16:51
[2019-04-16 20:00] VITALS: BP 117/57
[2019-04-16] MEDS: SENNA 8.6 MG TAB (SENOKOT) PO SCH (21:59)
[2019-04-16] MEDS: traZODone 25MG PER 1/2 TABLET PO SCH (22:00)
[2019-04-17 06:00] VITALS: BP 108/55
[2019-04-17] MEDS: LEVOTHYROXINE 137MCG TABLET (0.137MG) PO SCH (06:09)
[2019-04-17] MEDS: oxyCODONE 5MG TAB PO PRN (06:09)
[2019-04-17] MEDS: SYMBICORT 80/4.5MCG INHALER 6GM INH SCH ×2 (07:32→20:26)
[2019-04-17] MEDS: TIOTROPIUM INHALER/CAPSULE (SPIRIVA) INH SCH (07:33)
[2019-04-17] MEDS: IPRATROPIUM 0.5MG/ALBUTEROL 2.5MG INH SOL UD 3ML (DUONEB)(J7620) NEB SCH ×4 (07:33→20:00)
[2019-04-17] MEDS ORDERED: POTASSIUM CHLORIDE 10 MEQ SR TABLET PO SCH ×2 (08:00→09:00)
[2019-04-17] MEDS: BISACODYL 5 MG TAB PO SCH (09:00)
[2019-04-17] MEDS: VERAPAMIL 120 MG SR TAB PO SCH ×2 (09:00→20:20)
[2019-04-17] MEDS: METOPROLOL TART 12.5 MG PER 1/2 TAB PO SCH ×2 (09:00→20:21)
[2019-04-17] MEDS: CALCITRIOL 0.25 MCG CAP (S0169) PO SCH (09:32)
[2019-04-17] MEDS: APIXABAN 5 MG TAB (ELIQUIS) PO SCH ×2 (09:32→20:20)
[2019-04-17] MEDS: DOCUSATE SODIUM 100 MG CAP PO SCH ×3 (09:32→20:32)
[2019-04-17] MEDS: FUROSEMIDE 20 MG/2 ML VIAL (J1940) IV SCH ×2 (09:32→17:55)
[2019-04-17] MEDS: FERROUS SULFATE 325MG TAB PO SCH ×2 (09:33→20:20)
[2019-04-17] MEDS: FOLIC ACID 1 MG TAB PO SCH (09:33)
[2019-04-17] MEDS: SIMVASTATIN 20 MG TAB PO SCH (09:33)
[2019-04-17] MEDS: THIAMINE 100 MG TAB PO SCH (09:33)
[2019-04-17] MEDS: AMIODARONE 200 MG TAB (PACERONE) PO SCH (09:33)
[2019-04-17] MEDS: allopurinoL 100 MG TAB PO SCH (09:34)
[2019-04-17] MEDS: SALIVA SUBSTITUTE(MOUTHKOTE) BTL MT SCH ×4 (09:35→20:21)
[2019-04-17] MEDS: SPIRONOLACTONE 25 MG TAB PO SCH (09:35)
[2019-04-17] MEDS: ACETAMINOPHEN 500 MG TAB PO SCH ×3 (09:36→20:21)
[2019-04-17 09:48] LABS: HEMATOCRIT 29.4 % (36.0-47.0); HEMOGLOBIN 9.1 g/dl (12.0-15.5); MEAN CORPUSCULAR HEMOGLOBIN 28.1 pg (27.0-33.0); MEAN CORPUSCULAR VOLUME 90.7 fl (80.0-96.0); RED BLOOD COUNT 3.24 10^6/uL (4.00-5.40); WHITE BLOOD COUNT 14.9 10^3/uL (4.0-10.0)
[2019-04-17 10:01] LABS: PLATELET COUNT, AUTOMATED 55 10^3/uL (150-450)
[2019-04-17 10:21] LABS: CALCIUM LEVEL 6.9 MG/DL (8.8-10.2); CREATININE FOR GFR 1.36 MG/DL (0.55-1.30); GLOMERULAR FILTRATION RATE 40.5 (>39); POTASSIUM SERUM 3.3 MEQ/L (3.5-5.1)
[2019-04-17 10:35] LABS: ANISOCYTOSIS 1+; EOSINOPHILS 2 % (0-3); LYMPHOCYTES 10 % (16-44); METAMYELOCYTES 1 % (0-0); MONOCYTES 19 % (0-5); MYELOCYTES 3 % (0-0); NEUTROPHILS 65 % (28-66); PLATELET ESTIMATE MARKED DECREASE (NORMAL); POLYCHROMASIA 1+
--- NOTE | 2019-04-17 12:04 | REP ---
Clinical: Chest pain. CHF. Comparison: 04/13/2019 . Technique: AP and lateral. Findings: The mediastinum and cardiac silhouette are stable. No significant cardiomegaly. The lung mixon demonstrate diffuse chronic appearing interstitial changes. Mild pulmonary vascular congestion cannot be excluded. No opacity. No effusion. No pneumothorax. Skeletal structures stable. Impression: Chronic-appearing changes. Cannot exclude mild/chronic pulmonary vascular congestion. No opacity or effusion. Electronically Signed by Adiel David MD 04/17/2019 11:55 A
[2019-04-17 14:00] VITALS: BP 118/58
[2019-04-17] MEDS: guaiFENesin 200 MG TAB PO SCH ×2 (17:55→20:21)
[2019-04-17 19:25] VITALS: BP 120/56
[2019-04-17] MEDS: SENNA 8.6 MG TAB (SENOKOT) PO SCH ×2 (20:20→20:33)
[2019-04-17] MEDS: traZODone 25MG PER 1/2 TABLET PO SCH (20:20)
[2019-04-18 05:20] VITALS: BP 100/51
[2019-04-18] MEDS: LEVOTHYROXINE 137MCG TABLET (0.137MG) PO SCH (05:57)
[2019-04-18] MEDS: IPRATROPIUM 0.5MG/ALBUTEROL 2.5MG INH SOL UD 3ML (DUONEB)(J7620) NEB SCH ×4 (08:00→20:00)
[2019-04-18] MEDS: TIOTROPIUM INHALER/CAPSULE (SPIRIVA) INH SCH (08:00)
[2019-04-18] MEDS: METOPROLOL TART 12.5 MG PER 1/2 TAB PO SCH ×2 (09:00→20:52)
[2019-04-18] MEDS: SYMBICORT 80/4.5MCG INHALER 6GM INH SCH ×2 (09:15→20:17)
[2019-04-18] MEDS: SIMVASTATIN 20 MG TAB PO SCH (09:45)
[2019-04-18] MEDS: APIXABAN 5 MG TAB (ELIQUIS) PO SCH ×2 (09:46→20:51)
[2019-04-18] MEDS: BISACODYL 5 MG TAB PO SCH (09:46)
[2019-04-18] MEDS: POTASSIUM CHLORIDE 10 MEQ SR TABLET PO SCH (09:47)
[2019-04-18] MEDS: guaiFENesin 200 MG TAB PO SCH ×3 (09:47→20:51)
[2019-04-18] MEDS: ACETAMINOPHEN 500 MG TAB PO SCH ×3 (09:48→20:52)
[2019-04-18] MEDS: SPIRONOLACTONE 25 MG TAB PO SCH (09:48)
[2019-04-18] MEDS: VERAPAMIL 120 MG SR TAB PO SCH ×2 (09:49→20:51)
[2019-04-18] MEDS: CALCITRIOL 0.25 MCG CAP (S0169) PO SCH (09:49)
[2019-04-18] MEDS: FOLIC ACID 1 MG TAB PO SCH (09:50)
[2019-04-18] MEDS: allopurinoL 100 MG TAB PO SCH (09:50)
[2019-04-18] MEDS: FERROUS SULFATE 325MG TAB PO SCH ×2 (09:50→20:51)
[2019-04-18] MEDS: AMIODARONE 200 MG TAB (PACERONE) PO SCH (09:50)
[2019-04-18] MEDS: FUROSEMIDE 20 MG/2 ML VIAL (J1940) IV SCH ×2 (09:50→16:44)
[2019-04-18] MEDS: DOCUSATE SODIUM 100 MG CAP PO SCH ×2 (09:50→16:45)
[2019-04-18] MEDS: THIAMINE 100 MG TAB PO SCH (09:50)
[2019-04-18] MEDS: SALIVA SUBSTITUTE(MOUTHKOTE) BTL MT SCH ×4 (09:51→20:52)
[2019-04-18] MEDS: ONDANSETRON 4 MG TAB (S0181) PO PRN (10:03)
[2019-04-18 14:00] VITALS: BP 100/57
[2019-04-18 14:17] VITALS: BP 100/57
[2019-04-18] MEDS ORDERED: CALCIUM CARBONATE 500 MG CHEW U/D PO PRN (14:45)
[2019-04-18] MEDS: SENNA 8.6 MG TAB (SENOKOT) PO SCH (16:45)
[2019-04-18 19:30] VITALS: BP 123/71
[2019-04-18] MEDS: traZODone 25MG PER 1/2 TABLET PO SCH (20:52)
[2019-04-19 00:23] LABS: CALCIUM LEVEL 6.3 MG/DL (8.8-10.2); CREATININE FOR GFR 1.13 MG/DL (0.55-1.30); GLOMERULAR FILTRATION RATE 50.1 (>39); POTASSIUM SERUM 3.5 MEQ/L (3.5-5.1)
[2019-04-19 00:28] LABS: HEMATOCRIT 26.7 % (36.0-47.0); HEMOGLOBIN 8.1 g/dl (12.0-15.5); MEAN CORPUSCULAR HGB CONC 30.3 g/dl (32.0-36.5); MEAN CORPUSCULAR VOLUME 92.4 fl (80.0-96.0); RED BLOOD COUNT 2.89 10^6/uL (4.00-5.40); WHITE BLOOD COUNT 12.7 10^3/uL (4.0-10.0)
[2019-04-19 00:29] LABS: PLATELET COUNT, AUTOMATED 52 10^3/uL (150-450)
[2019-04-19 01:44] LABS: CLOSTRIDIUM DIFFICILE PCR NEGATIVE (NEGATIVE)
[2019-04-19 05:00] VITALS: BP 113/64
[2019-04-19] MEDS: LEVOTHYROXINE 137MCG TABLET (0.137MG) PO SCH (06:08)
[2019-04-19 07:16] LABS: HEMATOCRIT 27.7 % (36.0-47.0); HEMOGLOBIN 8.7 g/dl (12.0-15.5); MEAN CORPUSCULAR HEMOGLOBIN 28.9 pg (27.0-33.0); MEAN CORPUSCULAR HGB CONC 31.4 g/dl (32.0-36.5); RED BLOOD COUNT 3.01 10^6/uL (4.00-5.40); WHITE BLOOD COUNT 11.2 10^3/uL (4.0-10.0)
[2019-04-19 07:17] LABS: PLATELET COUNT, AUTOMATED 61 10^3/uL (150-450)
[2019-04-19] MEDS: DOCUSATE SODIUM 100 MG CAP PO SCH ×2 (07:38→20:10)
[2019-04-19 07:42] LABS: CALCIUM LEVEL 6.1 MG/DL (8.8-10.2); CREATININE FOR GFR 1.02 MG/DL (0.55-1.30); GLOMERULAR FILTRATION RATE 56.4 (>39); MAGNESIUM LEVEL 2.1 MG/DL (1.8-2.4); POTASSIUM SERUM 3.7 MEQ/L (3.5-5.1)
[2019-04-19] MEDS: BISACODYL 5 MG TAB PO SCH (07:45)
[2019-04-19] MEDS: IPRATROPIUM 0.5MG/ALBUTEROL 2.5MG INH SOL UD 3ML (DUONEB)(J7620) NEB SCH ×4 (08:00→20:00)
[2019-04-19] MEDS ORDERED: POTASSIUM CHLORIDE 10 MEQ SR TABLET PO SCH (09:00)
[2019-04-19] MEDS: CALCITRIOL 0.25 MCG CAP (S0169) PO SCH (09:18)
[2019-04-19] MEDS: guaiFENesin 200 MG TAB PO SCH ×3 (09:19→20:05)
[2019-04-19] MEDS: POTASSIUM CHLORIDE 10 MEQ SR TABLET PO SCH (09:19)
[2019-04-19] MEDS: FERROUS SULFATE 325MG TAB PO SCH ×2 (09:20→20:05)
[2019-04-19] MEDS: VERAPAMIL 120 MG SR TAB PO SCH ×2 (09:20→20:10)
[2019-04-19] MEDS: FOLIC ACID 1 MG TAB PO SCH (09:20)
[2019-04-19] MEDS: APIXABAN 5 MG TAB (ELIQUIS) PO SCH ×2 (09:20→20:05)
[2019-04-19] MEDS: SIMVASTATIN 20 MG TAB PO SCH (09:21)
[2019-04-19] MEDS: ACETAMINOPHEN 500 MG TAB PO SCH ×3 (09:21→20:06)
[2019-04-19] MEDS: THIAMINE 100 MG TAB PO SCH (09:21)
[2019-04-19] MEDS: allopurinoL 100 MG TAB PO SCH (09:23)
[2019-04-19] MEDS: AMIODARONE 200 MG TAB (PACERONE) PO SCH (09:24)
[2019-04-19] MEDS: METOPROLOL TART 12.5 MG PER 1/2 TAB PO SCH ×2 (09:25→20:11)
[2019-04-19] MEDS: oxyCODONE 5MG TAB PO PRN (09:25)
[2019-04-19] MEDS: SPIRONOLACTONE 25 MG TAB PO SCH (09:26)
[2019-04-19] MEDS: FUROSEMIDE 20 MG/2 ML VIAL (J1940) IV SCH ×2 (09:26→16:26)
[2019-04-19] MEDS: SALIVA SUBSTITUTE(MOUTHKOTE) BTL MT SCH ×4 (09:27→20:05)
[2019-04-19] MEDS: TIOTROPIUM INHALER/CAPSULE (SPIRIVA) INH SCH (12:18)
[2019-04-19] MEDS: SYMBICORT 80/4.5MCG INHALER 6GM INH SCH ×2 (12:18→20:01)
[2019-04-19 14:00] VITALS: BP 97/52
[2019-04-19 16:27] VITALS: BP 100/56
[2019-04-19 20:00] VITALS: BP 100/51
[2019-04-19] MEDS: traZODone 25MG PER 1/2 TABLET PO SCH (20:06)
[2019-04-19] MEDS: SENNA 8.6 MG TAB (SENOKOT) PO SCH (20:11)
[2019-04-20] MEDS: LEVOTHYROXINE 137MCG TABLET (0.137MG) PO SCH (05:28)
[2019-04-20 06:00] VITALS: BP 115/55
[2019-04-20] MEDS: IPRATROPIUM 0.5MG/ALBUTEROL 2.5MG INH SOL UD 3ML (DUONEB)(J7620) NEB SCH ×4 (08:00→20:00)
[2019-04-20] MEDS: SYMBICORT 80/4.5MCG INHALER 6GM INH SCH ×2 (08:16→20:46)
[2019-04-20] MEDS: TIOTROPIUM INHALER/CAPSULE (SPIRIVA) INH SCH (08:16)
[2019-04-20] MEDS: FUROSEMIDE 20 MG/2 ML VIAL (J1940) IV SCH ×2 (08:35→17:10)
[2019-04-20] MEDS: FOLIC ACID 1 MG TAB PO SCH (08:35)
[2019-04-20] MEDS: FERROUS SULFATE 325MG TAB PO SCH ×2 (08:36→19:59)
[2019-04-20] MEDS: CALCITRIOL 0.25 MCG CAP (S0169) PO SCH (08:36)
[2019-04-20] MEDS: METOPROLOL TART 12.5 MG PER 1/2 TAB PO SCH ×2 (08:36→20:00)
[2019-04-20] MEDS: SIMVASTATIN 20 MG TAB PO SCH (08:36)
[2019-04-20] MEDS: POTASSIUM CHLORIDE 10 MEQ SR TABLET PO SCH (08:37)
[2019-04-20] MEDS: guaiFENesin 200 MG TAB PO SCH ×3 (08:37→20:00)
[2019-04-20] MEDS: ACETAMINOPHEN 500 MG TAB PO SCH ×3 (08:38→19:59)
[2019-04-20] MEDS: SALIVA SUBSTITUTE(MOUTHKOTE) BTL MT SCH ×4 (08:38→20:00)
[2019-04-20] MEDS: AMIODARONE 200 MG TAB (PACERONE) PO SCH (08:38)
[2019-04-20] MEDS: VERAPAMIL 120 MG SR TAB PO SCH ×2 (08:38→20:00)
[2019-04-20] MEDS: THIAMINE 100 MG TAB PO SCH (08:38)
[2019-04-20] MEDS: allopurinoL 100 MG TAB PO SCH (08:39)
[2019-04-20] MEDS: APIXABAN 5 MG TAB (ELIQUIS) PO SCH ×2 (08:39→19:59)
[2019-04-20] MEDS: SPIRONOLACTONE 25 MG TAB PO SCH (08:39)
[2019-04-20] MEDS: BISACODYL 5 MG TAB PO SCH (08:39)
[2019-04-20] MEDS: DOCUSATE SODIUM 100 MG CAP PO SCH ×2 (08:39→19:27)
[2019-04-20] MEDS ORDERED: FUROSEMIDE 40 MG/4 ML VIAL (J1940) IV ONE (12:00)
[2019-04-20] MEDS: oxyCODONE 5MG TAB PO PRN (12:26)
[2019-04-20 13:07] LABS: HEMATOCRIT 31.4 % (36.0-47.0); HEMOGLOBIN 9.2 g/dl (12.0-15.5); MEAN CORPUSCULAR HEMOGLOBIN 28.1 pg (27.0-33.0); MEAN CORPUSCULAR HGB CONC 29.3 g/dl (32.0-36.5); RED BLOOD COUNT 3.27 10^6/uL (4.00-5.40); WHITE BLOOD COUNT 13.2 10^3/uL (4.0-10.0)
[2019-04-20 13:30] LABS: PLATELET COUNT, AUTOMATED 72 10^3/uL (150-450)
[2019-04-20 13:37] LABS: EOSINOPHILS 1 % (0-3); LYMPHOCYTES 14 % (16-44); METAMYELOCYTES 2 % (0-0); MONOCYTES 17 % (0-5); MYELOCYTES 2 % (0-0); NEUTROPHILS 62 % (28-66); PLATELET ESTIMATE DECREASED (NORMAL)
[2019-04-20 13:38] LABS: ANISOCYTOSIS 2+; POLYCHROMASIA 2+
[2019-04-20 13:48] LABS: CALCIUM LEVEL 6.5 MG/DL (8.8-10.2); CREATININE FOR GFR 1.2 MG/DL (0.55-1.30); GLOMERULAR FILTRATION RATE 46.8 (>39); POTASSIUM SERUM 4.7 MEQ/L (3.5-5.1)
[2019-04-20 14:00] VITALS: BP 100/59
--- NOTE | 2019-04-20 17:28 | IPNPDOC ---
PM&R Progress Note DATE OF SERVICE: Apr 17, 2019 Senior Electrical Design Engineer Progress Note Subjective: Patient seen this reporting she still feels short of breath, but it is a little better than yesterday. REVIEW OF SYSTEMS: The following is a completed review of systems and has been reviewed. Review of systems otherwise unremarkable. PAIN: Patient self reports no pain at rest EYES: No recent vision changes EARS, NOSE, & THROAT: + throat pain, (-) dysphagia, or rhinorrhea CARDIOVASCULAR: Denies chest pain or palpitations PULMONARY: +dyspnea (improving) GASTROINTESTINAL: Denies constipation/diarrhea GENITOURINARY: denies dysuria MUSCULOSKELETAL: left hip fracture NEUROLOGICAL:no tremor or seizure activity HEMATOLOGICAL: +easy bruising SKIN: +left hip incision and scattered ecchymosis PSYCHIATRIC: +confused (improving) All other review of systems found to be negative. PHYSICAL EXAMINATION: VITAL SIGNS: Please see below. GENERAL: Pleasant and cooperative. No acute distress. HEENT: PERRL. Extraocular movements intact. Clear conjunctiva CARDIOVASCULAR: Irregular rate and rhythm. No murmurs, rubs, or gallops LUNGS: +scattered wheeze ABDOMEN: Soft, nontender, mildly distended. Positive bowel sounds. Normal active bowel sounds NEUROLOGICAL: Alert and oriented x3, appeared confused, but able to follow commands Cranial nerves II through XII grossly intact. Sensation grossly intact including 1st web space on left EXTREMITIES: 5-\5 strength bilateral upper extremities. 4\5 strength right lower extremity. 4/5 strength in left ankle DF, EHL, and PF (limited due to surgery) +LLE edema and RLE edema (-) Homans SKIN: left hip and groin with ecchymosis, scattered ecchymosis bilat UE, left hip incision with edema and ecchymosis and serosanguineous drainage ASSESSMENT:73-year-old F with past medical history of Afib who presents status post fall with left hip fracture PLAN: 1. 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 Ortho: s/p left hip ORIF, ortho consulted 3. Neuro: patient with delirium and agitation- trazodone ordered prn 4. Cardiac: hx of Afib c/u eliquis, amiodarone, metoprolol, c/u verapamil- medicine consulted to assist in management -recent ECHO showing grade 1 diastolic CHF, with acute CHF exacerbation with shortness of breath on exam today and bilat LE edema- c/u IV lasix, will ask medicine for possible adjustments to dosing -c/u 1500cc fluid restrict and no salt diet- medicine recs appreciated -daily weight ordered 5. Resp: Hx of COPD, c/u Duonebs standing, monitor for infection -encourage incentive spirometry -c/u Symbicort 6. Renal: FREDY on CKD s/p IVF, monitor and will consider renal consult 7. Heme: patient with significant post-op anemia s/p 4 units rbcs on inpatient with large left groin hematoma, ordered FOBT (pending collection), transfuse if <8 -patient with hx of thrombocytopenia, on in-patient admission pre-op patient around 90 and received platelets at that time, trending down to 40s here on ARU, patient with moderate amount of surgical site bleeding, but Hgb stable at 8 and she is hemodynamically stable, medicine aware and will consider platelet transfusion if c/u's to drop -d/yazmin protonix as can contribute to thrombocytopenia 8. DVT ppx: on Eliquis 5 BID -Doppler negative for proximal LLE DVT 9. Pain: Tylenol, oxycodone 10. GI px: protonix on hold due to thrombocytopenia, will consider pepcid/omep razole if FOBT is positive, otherwise will avoid H-2 blockers/PPIs 11. : hx of recurrent UTIs on macrobid ppx, however given Quality Assurance Tester function switched to fosfomycin 3g q7days as off-label prophylactic dosing 10. Dispo: TBD Allergies Coded Allergies: tetracycline (Verified Allergy, Severe, swelling, peeling of the tongue, 02/19/19) zolpidem (Verified Allergy, Severe, respiratory distress, 02/19/19) Sulfa (Sulfonamide Antibiotics) (Verified Allergy, Intermediate, hives, 02/19/19) Penicillins (Verified Adverse Reaction, Intermediate, N/V, 02/19/19) tramadol (Verified Adverse Reaction, Intermediate, N/V, 02/19/19) Vital Signs Vital Signs Date Time Temp Pulse Resp B/P (MAP) Pulse Ox O2 Delivery O2 Flow Rate FiO2 04/20/19 14:00 98.0 77 20 100/59 (73) 97 Room Air 04/18/19 14:17 1.0 Laboratory Data CBC/BMP Laboratory Tests 04/20/19 12:44 Labs 24H Laboratory Tests 2 04/20/19 12:44: Immature Granulocyte % (Auto) , Neutrophils (%) (Auto) , Lymphocytes (%) (Auto) , Monocytes (%) (Auto) , Eosinophils (%) (Auto) , Basophils (%) (Auto) , Neutrophils # (Auto) , Lymphocytes # (Auto) , Monocytes # (Auto) , Eosinophils # (Auto) , Basophils # (Auto) , Nucleated Red Blood Cells % (auto) 1.9H, Neutrophils 62, Band Neutrophils 2, Lymphocytes (Manual) 14L, Monocytes (Manual) 17H, Eosinophils (Manual) 1, Metamyelocytes 2H, Myelocytes 2H, Polychromasia 2+, Anisocytosis 2+, Platelet Estimate DECREASED, Immature Platelet Fraction 16.8H, Anion Gap 6L, Glomerular Filtration Rate 46.8, Calcium Level 6.5L, VQ-Acy-S-Type Natriuretic Peptide 2667H Microbiology Microbiology 04/19/19 Stool Occult Blood (MARIA LUISA) - Final, Complete 04/16/19 Stool Occult Blood (MARIA LUISA) - Final, Complete 04/15/19 Eye/Ear/Nose/Throat Culture - Final, Complete Current Medications Current Medications Current Medications Medications (Trade) Dose Ordered Sig/Ady Route PRN Reason Start Time Stop Time Status Last Admin Dose Admin Acetaminophen (Tylenol Tab) 1,000 mg TID PO 04/14/19 21:00 04/20/19 17:10 Albuterol/ Ipratropium (Duoneb (Ipr 0.5mg/Alb 2.5mg)) 3 ml RQID NEB 04/14/19 20:00 04/20/19 12:55 Allopurinol (Zyloprim) 100 mg DAILY PO 04/15/19 09:00 04/20/19 08:39 Amiodarone HCl (Pacerone, Cordarone) 200 mg DAILY PO 04/15/19 09:00 04/20/19 08:38 Apixaban (Eliquis) 5 mg BID PO 04/14/19 21:00 04/20/19 08:39 Bisacodyl (Dulcolax Tab) 5 mg DAILY PO 04/16/19 09:00 04/18/19 09:46 Bisacodyl (Dulcolax Tab) 5 mg DAILYPRN PRN PO CONSTIPATION 04/14/19 17:00 Budesonide/ Formoterol Fumarate (Symbicort 80/ 4.5mcg) 2 puff BID INH 04/14/19 21:00 04/20/19 08:16 Calcitriol (Rocaltrol) 0.5 mcg DAILY PO 04/15/19 09:00 04/20/19 08:36 Calcium Carbonate (Tums) 500 mg BID PRN PO INDIGESTION 04/18/19 14:45 04/18/19 18:08 Docusate Sodium (Colace) 100 mg BID PO 04/14/19 21:00 04/18/19 09:50 Ferrous Gluconate (Fergon) 324 mg BID PO 04/14/19 21:00 04/14/19 18:57 DC Ferrous Sulfate (Ferrous Sulfate) 325 mg BID PO 04/14/19 21:00 04/20/19 08:36 Folic Acid (Folic Acid) 1 mg DAILY PO 04/15/19 09:00 04/20/19 08:35 Fosfomycin Tromethamine (Monurol) 3 gm Q7D PO 04/15/19 21:00 04/15/19 21:53 Furosemide (LASIX injection) 20 mg BID@09,17 IV 04/15/19 17:00 04/20/19 17:10 Guaifenesin (Robitussin Tab) 400 mg TID PO 04/17/19 16:00 04/20/19 17:10 Levalbuterol HCl (Xopenex Neb) 1.25 mg Q6HP PRN INH SOB/WHEEZING 04/14/19 17:00 04/14/19 22:31 Levothyroxine Sodium (Synthroid) 137 mcg DAILY@06 PO 04/15/19 06:00 04/20/19 05:28 Magnesium Hydroxide (Milk Of Magnesia) 30 ml DAILYPRN PRN PO CONSTIPATION 04/14/19 17:00 04/16/19 10:14 Metoprolol Tartrate (Lopressor) 12.5 mg BID PO 04/14/19 21:00 04/15/19 12:36 DC 04/15/19 09:51 Metoprolol Tartrate (Lopressor) 12.5 mg BID PO 04/15/19 21:00 04/20/19 08:36 Miscellaneous (Unresolved Clarification Entry) SEE LABEL COMMENTS DAILY XX 04/14/19 09:00 04/15/19 12:43 DC Miscellaneous (Unresolved Clarification Entry) SEE LABEL COMMENTS DAILY XX 04/20/19 09:00 Nitrofurantoin Monoh/Nitrofur Macro (Macrobid) 100 mg DAILY PO 04/15/19 09:00 04/15/19 11:03 DC Ondansetron HCl (Zofran) 4 mg Q6HP PRN PO NAUSEA 04/14/19 17:00 04/18/19 10:03 Oxycodone HCl (Roxicodone, Oxyir) 5 mg Q4HP PRN PO PAIN 04/14/19 17:00 04/20/19 12:26 Pantoprazole Sodium (Protonix) 40 mg BID PO 04/14/19 21:00 04/16/19 09:33 DC 04/16/19 08:17 Potassium Chloride (Micro-K Extencaps) 20 meq DAILY PO 04/17/19 09:00 04/17/19 10:04 DC Potassium Chloride (Micro-K Extencaps) 20 meq Q48H PO 04/19/19 09:00 04/17/19 10:59 DC Potassium Chloride (Micro-K Extencaps) 40 meq DAILY PO 04/18/19 09:00 04/20/19 08:37 Potassium Chloride (Micro-K Extencaps) 40 meq Q8H PO 04/17/19 08:00 04/17/19 10:04 DC 04/17/19 09:33 Saliva Substitute (Mouthkote) 2 sprays QID MT 04/15/19 13:00 04/20/19 17:11 Senna (Senokot) 1 tab QHS PO 04/14/19 21:00 04/16/19 21:59 Simvastatin (Zocor) 20 mg DAILY PO 04/15/19 09:00 04/20/19 08:36 Spironolactone (Aldactone) 25 mg QAM PO 04/15/19 09:00 04/20/19 08:39 Sucralfate (Carafate) 1 gm ACHS PO 04/16/19 12:00 04/16/19 11:33 DC Thiamine HCl (Thiamine HCl) 100 mg DAILY PO 04/15/19 09:00 04/20/19 08:38 Tiotropium [place] (Spiriva Handihaler) 1 inhalation DAILY@08 INH 04/15/19 08:00 04/20/19 08:16 Trazodone HCl (Desyrel) 25 mg Q6H PRN PO AGITATION 04/14/19 18:45 Trazodone HCl (Desyrel) 25 mg QHS PO 04/14/19 21:00 04/19/19 20:06 Verapamil HCl (Isoptin-Sr, Calan Sr) 120 mg BID PO 04/15/19 21:00 04/20/19 08:38 CHANDANA BRICEÑO MD Apr 20, 2019 17:28
--- NOTE | 2019-04-20 17:31 | IPNPDOC ---
PM&R Progress Note DATE OF SERVICE: Apr 20, 2019 Boxcar Weigher Progress Note Subjective: Patient seen this morning, very short of breath while in therapy, received extra dose of lasix and reported alter improved breathing. She reports she feels well overall. REVIEW OF SYSTEMS: The following is a completed review of systems and has been reviewed. Review of systems otherwise unremarkable. PAIN: Patient self reports no pain at rest EYES: No recent vision changes EARS, NOSE, & THROAT: + throat pain, (-) dysphagia, or rhinorrhea CARDIOVASCULAR: Denies chest pain or palpitations PULMONARY: +dyspnea GASTROINTESTINAL: Denies constipation/diarrhea GENITOURINARY: denies dysuria MUSCULOSKELETAL: left hip fracture NEUROLOGICAL:no tremor or seizure activity HEMATOLOGICAL: +easy bruising SKIN: +left hip incision and scattered ecchymosis PSYCHIATRIC: +confused (improving) All other review of systems found to be negative. PHYSICAL EXAMINATION: VITAL SIGNS: Please see below. GENERAL: Pleasant and cooperative. No acute distress. HEENT: PERRL. Extraocular movements intact. Clear conjunctiva CARDIOVASCULAR: Irregular rate and rhythm. No murmurs, rubs, or gallops LUNGS: +CTA ABDOMEN: Soft, nontender, mildly distended. Positive bowel sounds. Normal active bowel sounds NEUROLOGICAL: Alert and oriented x3, appeared confused, but able to follow commands Cranial nerves II through XII grossly intact. Sensation grossly intact including 1st web space on left EXTREMITIES: 5-\5 strength bilateral upper extremities. 4\5 strength right lower extremity. 4/5 strength in left ankle DF, EHL, and PF (limited due to surgery) +LLE edema and RLE edema (-) Homans SKIN: left hip and groin with ecchymosis, scattered ecchymosis bilat UE, left hip incision with edema and ecchymosis and serosanguineous drainage ASSESSMENT:73-year-old F with past medical history of Afib who presents status post fall with left hip fracture PLAN: 1. 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 Ortho: s/p left hip ORIF, ortho consulted 3. Neuro: patient with delirium and agitation- trazodone ordered prn 4. Cardiac: hx of Afib c/u eliquis, amiodarone, metoprolol, c/u verapamil- medicine consulted to assist in management -recent ECHO showing grade 1 diastolic CHF -acute CHF exacerbation with shortness of breath on exam again this morning, responded to 1x extra dose lasix 40, weight and BNP down, but still with bilat LE edema and intermittent dyspnea- c/u IV lasix- patient's breathing much improved this afternoon -c/u 1500cc fluid restrict and no salt diet- medicine recs appreciated -daily weight ordered 5. Resp: Hx of COPD, c/u Duonebs standing, monitor for infection -encourage incentive spirometry -c/u Symbicort 6. Renal: FREDY on CKD s/p IVF, monitor and will consider renal consult 7. Heme: patient with significant post-op anemia s/p 4 units rbcs on inpatient with large left groin hematoma, FOBT negative -patient with hx of thrombocytopenia, on in-patient admission pre-op patient around 90 and received platelets at that time, trending back up -patient with less serosanguineous drainage -d/yazmin protonix as can contribute to thrombocytopenia 8. DVT ppx: on Eliquis 5 BID -Doppler negative for proximal LLE DVT 9. Pain: Tylenol, oxycodone 10. GI px: protonix on hold due to thrombocytopenia 11. : hx of recurrent UTIs on macrobid ppx, however given Technician Helper Instrument function swit ched to fosfomycin 3g q7days as off-label prophylactic dosing 10. Dispo: TBD Allergies Coded Allergies: tetracycline (Verified Allergy, Severe, swelling, peeling of the tongue, 02/19/19) zolpidem (Verified Allergy, Severe, respiratory distress, 02/19/19) Sulfa (Sulfonamide Antibiotics) (Verified Allergy, Intermediate, hives, 02/19/19) Penicillins (Verified Adverse Reaction, Intermediate, N/V, 02/19/19) tramadol (Verified Adverse Reaction, Intermediate, N/V, 02/19/19) Vital Signs Vital Signs Date Time Temp Pulse Resp B/P (MAP) Pulse Ox O2 Delivery O2 Flow Rate FiO2 04/20/19 14:00 98.0 77 20 100/59 (73) 97 Room Air 04/18/19 14:17 1.0 Laboratory Data CBC/BMP Laboratory Tests 04/20/19 12:44 Labs 24H Laboratory Tests 2 04/20/19 12:44: Immature Granulocyte % (Auto) , Neutrophils (%) (Auto) , Lymphocytes (%) (Auto) , Monocytes (%) (Auto) , Eosinophils (%) (Auto) , Basophils (%) (Auto) , Neutrophils # (Auto) , Lymphocytes # (Auto) , Monocytes # (Auto) , Eosinophils # (Auto) , Basophils # (Auto) , Nucleated Red Blood Cells % (auto) 1.9H, Neutrophils 62, Band Neutrophils 2, Lymphocytes (Manual) 14L, Monocytes (Manual) 17H, Eosinophils (Manual) 1, Metamyelocytes 2H, Myelocytes 2H, Polychromasia 2+, Anisocytosis 2+, Platelet Estimate DECREASED, Immature Platelet Fraction 16.8H, Anion Gap 6L, Glomerular Filtration Rate 46.8, Calcium Level 6.5L, HY-Oht-X-Type Natriuretic Peptide 2667H Microbiology Microbiology 04/19/19 Stool Occult Blood (MARIA LUISA) - Final, Complete 04/16/19 Stool Occult Blood (MARIA LUISA) - Final, Complete 04/15/19 Eye/Ear/Nose/Throat Culture - Final, Complete Current Medications Current Medications Current Medications Medications (Trade) Dose Ordered Sig/Ady Route PRN Reason Start Time Stop Time Status Last Admin Dose Admin Acetaminophen (Tylenol Tab) 1,000 mg TID PO 04/14/19 21:00 04/20/19 17:10 Albuterol/ Ipratropium (Duoneb (Ipr 0.5mg/Alb 2.5mg)) 3 ml RQID NEB 04/14/19 20:00 04/20/19 12:55 Allopurinol (Zyloprim) 100 mg DAILY PO 04/15/19 09:00 04/20/19 08:39 Amiodarone HCl (Pacerone, Cordarone) 200 mg DAILY PO 04/15/19 09:00 04/20/19 08:38 Apixaban (Eliquis) 5 mg BID PO 04/14/19 21:00 04/20/19 08:39 Bisacodyl (Dulcolax Tab) 5 mg DAILY PO 04/16/19 09:00 04/18/19 09:46 Bisacodyl (Dulcolax Tab) 5 mg DAILYPRN PRN PO CONSTIPATION 04/14/19 17:00 Budesonide/ Formoterol Fumarate (Symbicort 80/ 4.5mcg) 2 puff BID INH 04/14/19 21:00 04/20/19 08:16 Calcitriol (Rocaltrol) 0.5 mcg DAILY PO 04/15/19 09:00 04/20/19 08:36 Calcium Carbonate (Tums) 500 mg BID PRN PO INDIGESTION 04/18/19 14:45 04/18/19 18:08 Docusate Sodium (Colace) 100 mg BID PO 04/14/19 21:00 04/18/19 09:50 Ferrous Gluconate (Fergon) 324 mg BID PO 04/14/19 21:00 04/14/19 18:57 DC Ferrous Sulfate (Ferrous Sulfate) 325 mg BID PO 04/14/19 21:00 04/20/19 08:36 Folic Acid (Folic Acid) 1 mg DAILY PO 04/15/19 09:00 04/20/19 08:35 Fosfomycin Tromethamine (Monurol) 3 gm Q7D PO 04/15/19 21:00 04/15/19 21:53 Furosemide (LASIX injection) 20 mg BID@09,17 IV 04/15/19 17:00 04/20/19 17:10 Guaifenesin (Robitussin Tab) 400 mg TID PO 04/17/19 16:00 04/20/19 17:10 Levalbuterol HCl (Xopenex Neb) 1.25 mg Q6HP PRN INH SOB/WHEEZING 04/14/19 17:00 04/14/19 22:31 Levothyroxine Sodium (Synthroid) 137 mcg DAILY@06 PO 04/15/19 06:00 04/20/19 05:28 Magnesium Hydroxide (Milk Of Magnesia) 30 ml DAILYPRN PRN PO CONSTIPATION 04/14/19 17:00 04/16/19 10:14 Metoprolol Tartrate (Lopressor) 12.5 mg BID PO 04/14/19 21:00 04/15/19 12:36 DC 04/15/19 09:51 Metoprolol Tartrate (Lopressor) 12.5 mg BID PO 04/15/19 21:00 04/20/19 08:36 Miscellaneous (Unresolved Clarification Entry) SEE LABEL COMMENTS DAILY XX 04/14/19 09:00 04/15/19 12:43 DC Miscellaneous (Unresolved Clarification Entry) SEE LABEL COMMENTS DAILY XX 04/20/19 09:00 Nitrofurantoin Monoh/Nitrofur Macro (Macrobid) 100 mg DAILY PO 04/15/19 09:00 04/15/19 11:03 DC Ondansetron HCl (Zofran) 4 mg Q6HP PRN PO NAUSEA 04/14/19 17:00 04/18/19 10:03 Oxycodone HCl (Roxicodone, Oxyir) 5 mg Q4HP PRN PO PAIN 04/14/19 17:00 04/20/19 12:26 Pantoprazole Sodium (Protonix) 40 mg BID PO 04/14/19 21:00 04/16/19 09:33 DC 04/16/19 08:17 Potassium Chloride (Micro-K Extencaps) 20 meq DAILY PO 04/17/19 09:00 04/17/19 10:04 DC Potassium Chloride (Micro-K Extencaps) 20 meq Q48H PO 04/19/19 09:00 04/17/19 10:59 DC Potassium Chloride (Micro-K Extencaps) 40 meq DAILY PO 04/18/19 09:00 04/20/19 08:37 Potassium Chloride (Micro-K Extencaps) 40 meq Q8H PO 04/17/19 08:00 04/17/19 10:04 DC 04/17/19 09:33 Saliva Substitute (Mouthkote) 2 sprays QID MT 04/15/19 13:00 04/20/19 17:11 Senna (Senokot) 1 tab QHS PO 04/14/19 21:00 04/16/19 21:59 Simvastatin (Zocor) 20 mg DAILY PO 04/15/19 09:00 04/20/19 08:36 Spironolactone (Aldactone) 25 mg QAM PO 04/15/19 09:00 04/20/19 08:39 Sucralfate (Carafate) 1 gm ACHS PO 04/16/19 12:00 04/16/19 11:33 DC Thiamine HCl (Thiamine HCl) 100 mg DAILY PO 04/15/19 09:00 04/20/19 08:38 Tiotropium [place] (Spiriva Handihaler) 1 inhalation DAILY@08 INH 04/15/19 08:00 04/20/19 08:16 Trazodone HCl (Desyrel) 25 mg Q6H PRN PO AGITATION 04/14/19 18:45 Trazodone HCl (Desyrel) 25 mg QHS PO 04/14/19 21:00 04/19/19 20:06 Verapamil HCl (Isoptin-Sr, Calan Sr) 120 mg BID PO 04/15/19 21:00 04/20/19 08:38 CHANDANA BRICEÑO MD Apr 20, 2019 17:31
[2019-04-20] MEDS: SENNA 8.6 MG TAB (SENOKOT) PO SCH (19:27)
[2019-04-20] MEDS: traZODone 25MG PER 1/2 TABLET PO SCH (19:59)
[2019-04-20 20:00] VITALS: BP 107/57
[2019-04-21] MEDS: LEVOTHYROXINE 137MCG TABLET (0.137MG) PO SCH (05:31)
[2019-04-21 06:01] VITALS: BP 104/52
[2019-04-21] MEDS: SYMBICORT 80/4.5MCG INHALER 6GM INH SCH ×2 (07:43→20:02)
[2019-04-21] MEDS: IPRATROPIUM 0.5MG/ALBUTEROL 2.5MG INH SOL UD 3ML (DUONEB)(J7620) NEB SCH ×4 (07:43→20:00)
[2019-04-21] MEDS: TIOTROPIUM INHALER/CAPSULE (SPIRIVA) INH SCH (07:43)
[2019-04-21] MEDS: FERROUS SULFATE 325MG TAB PO SCH ×2 (08:37→20:24)
[2019-04-21] MEDS: THIAMINE 100 MG TAB PO SCH (08:37)
[2019-04-21] MEDS: FUROSEMIDE 20 MG/2 ML VIAL (J1940) IV SCH ×2 (08:37→17:36)
[2019-04-21] MEDS: guaiFENesin 200 MG TAB PO SCH ×3 (08:38→20:24)
[2019-04-21] MEDS: ACETAMINOPHEN 500 MG TAB PO SCH ×3 (08:38→20:24)
[2019-04-21] MEDS: METOPROLOL TART 12.5 MG PER 1/2 TAB PO SCH ×2 (08:38→20:26)
[2019-04-21] MEDS: FOLIC ACID 1 MG TAB PO SCH (08:38)
[2019-04-21] MEDS: allopurinoL 100 MG TAB PO SCH (08:38)
[2019-04-21] MEDS: CALCITRIOL 0.25 MCG CAP (S0169) PO SCH (08:38)
[2019-04-21] MEDS: oxyCODONE 5MG TAB PO PRN ×2 (08:39→18:42)
[2019-04-21] MEDS: APIXABAN 5 MG TAB (ELIQUIS) PO SCH ×2 (08:39→20:24)
[2019-04-21] MEDS: SPIRONOLACTONE 25 MG TAB PO SCH (08:39)
[2019-04-21] MEDS: VERAPAMIL 120 MG SR TAB PO SCH ×2 (08:39→20:26)
[2019-04-21] MEDS: SIMVASTATIN 20 MG TAB PO SCH (08:39)
[2019-04-21] MEDS: BISACODYL 5 MG TAB PO SCH (08:40)
[2019-04-21] MEDS: AMIODARONE 200 MG TAB (PACERONE) PO SCH (08:40)
[2019-04-21] MEDS: DOCUSATE SODIUM 100 MG CAP PO SCH ×2 (08:40→20:25)
[2019-04-21] MEDS: SALIVA SUBSTITUTE(MOUTHKOTE) BTL MT SCH ×4 (08:40→20:25)
[2019-04-21] MEDS: POTASSIUM CHLORIDE 10 MEQ SR TABLET PO SCH (08:40)
[2019-04-21] MEDS: LIDOCAINE 5% (LIDODERM) PATCH TD SCH (09:50)
[2019-04-21] MEDS: CALCIUM/VITAMIN D 500 MG TAB PO SCH (09:51)
[2019-04-21 09:54] LABS: HEMATOCRIT 29.4 % (36.0-47.0); HEMOGLOBIN 8.8 g/dl (12.0-15.5); MEAN CORPUSCULAR HEMOGLOBIN 28.5 pg (27.0-33.0); MEAN CORPUSCULAR HGB CONC 29.9 g/dl (32.0-36.5); MEAN CORPUSCULAR VOLUME 95.1 fl (80.0-96.0); RED BLOOD COUNT 3.09 10^6/uL (4.00-5.40); WHITE BLOOD COUNT 12.4 10^3/uL (4.0-10.0)
[2019-04-21 09:59] LABS: PLATELET COUNT, AUTOMATED 83 10^3/uL (150-450)
[2019-04-21 10:17] LABS: CALCIUM LEVEL 6.4 MG/DL (8.8-10.2); CREATININE FOR GFR 1.19 MG/DL (0.55-1.30); GLOMERULAR FILTRATION RATE 47.2 (>39); POTASSIUM SERUM 4.3 MEQ/L (3.5-5.1)
--- NOTE | 2019-04-21 10:23 | IPNPDOC ---
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 She reports left sided low back pain. She denies burning with urination. She has been having incontinence and increased frequency. REVIEW OF SYSTEMS: The following is a completed review of systems and has been reviewed. Review of systems otherwise unremarkable. PAIN: Patient self reports no pain at rest EYES: No recent vision changes EARS, NOSE, & THROAT: denies throat pain, (-) dysphagia, or rhinorrhea CARDIOVASCULAR: Denies chest pain or palpitations PULMONARY:denies shortness of breath GASTROINTESTINAL: Denies constipation/diarrhea GENITOURINARY: denies dysuria MUSCULOSKELETAL: left hip fracture NEUROLOGICAL:no tremor or seizure activity HEMATOLOGICAL: +easy bruising SKIN: +left hip incision and scattered ecchymosis PSYCHIATRIC: +confused (improving) All other review of systems found to be negative. PHYSICAL EXAMINATION: VITAL SIGNS: Please see below. GENERAL: Pleasant and cooperative. No acute distress. HEENT: PERRL. Extraocular movements intact. Clear conjunctiva CARDIOVASCULAR: Irregular rate and rhythm. No murmurs, rubs, or gallops LUNGS: +CTA throughout ABDOMEN: Soft, nontender, mildly distended. Positive bowel sounds. Normal active bowel sounds NEUROLOGICAL: Alert and oriented x3, appeared confused, but able to follow commands Cranial nerves II through XII grossly intact. Sensation grossly intact including 1st web space on left EXTREMITIES: 5-\5 strength bilateral upper extremities. 4\5 strength right lower extremity. 4/5 strength in left ankle DF, EHL, and PF (limited due to surgery) +LLE edema and RLE edema (-) Homans SKIN: left hip and groin with ecchymosis, scattered ecchymosis bilat UE, left hip incision with edema and ecchymosis and serosanguineous drainage (improving) ASSESSMENT:73-year-old F with past medical history of Afib who presents status post fall with left hip fracture PLAN: 1. 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 Ortho: s/p left hip ORIF, ortho consulted 3. Neuro: patient with delirium and agitation- trazodone ordered prn 4. Cardiac: hx of Afib c/u eliquis, amiodarone, metoprolol, c/u verapamil- medicine consulted to assist in management -recent ECHO showing grade 1 diastolic CHF -acute CHF exacerbation seems to have resolved today, c/u IV lasix 20 BID, will switch back to oral tomorrow -c/u 1500cc fluid restrict and no salt diet- medicine recs appreciated -daily weight ordered 5. Resp: Hx of COPD, c/u Duonebs standing, monitor for infection -encourage incentive spirometry -c/u Symbicort 6. Renal: FREDY on CKD s/p IVF, monitor and will consider renal consult 7. Heme: patient with significant post-op anemia s/p 4 units rbcs on inpatient with large left groin hematoma, FOBT negative -patient with hx of thrombocytopenia, on in-patient admission pre-op patient around 90 and received platelets at that time, trending back up from 40's -patient with less serosanguineous drainage -d/yazmin protonix as can contribute to thrombocytopenia 8. DVT ppx: on Eliquis 5 BID -Doppler negative for proximal LLE DVT 9. Pain: Tylenol, oxycodone 10. GI px: protonix on hold due to thrombocytopenia 11. : hx of recurrent UTIs on macrobid ppx, however given Paratransit Operator function switched to fosfomycin 3g q7days as off-label prophylactic dosing -patient with incontinence, likely due to diuretic, received Fosfomycin, will hold off on UA and c/u to trend leukocytosis -no dysuria reported 10. Dispo: TBD Allergies Coded Allergies: tetracycline (Verified Allergy, Severe, swelling, peeling of the tongue, 02/19/19) zolpidem (Verified Allergy, Severe, respiratory distress, 02/19/19) Sulfa (Sulfonamide Antibiotics) (Verified Allergy, Intermediate, hives, 02/19/19) Penicillins (Verified Adverse Reaction, Intermediate, N/V, 02/19/19) tramadol (Verified Adverse Reaction, Intermediate, N/V, 02/19/19) Vital Signs Vital Signs Date Time Temp Pulse Resp B/P (MAP) Pulse Ox O2 Delivery O2 Flow Rate FiO2 04/21/19 08:39 18 04/21/19 08:38 78 112/54 04/21/19 06:01 97.8 99 Room Air 04/18/19 14:17 1.0 Laboratory Data CBC/BMP Laboratory Tests 04/20/19 12:44 04/21/19 09:40 Labs 24H Laboratory Tests 2 04/20/19 12:44: Immature Granulocyte % (Auto) , Neutrophils (%) (Auto) , Lymphocytes (%) (Auto) , Monocytes (%) (Auto) , Eosinophils (%) (Auto) , Basophils (%) (Auto) , Neutrophils # (Auto) , Lymphocytes # (Auto) , Monocytes # (Auto) , Eosinophils # (Auto) , Basophils # (Auto) , Nucleated Red Blood Cells % (auto) 1.9H, Neutrophils 62, Band Neutrophils 2, Lymphocytes (Manual) 14L, Monocytes (Manual) 17H, Eosinophils (Manual) 1, Metamyelocytes 2H, Myelocytes 2H, Polychromasia 2+, Anisocytosis 2+, Platelet Estimate DECREASED, Immature Platelet Fraction 16.8H, Anion Gap 6L, Glomerular Filtration Rate 46.8, Calcium Level 6.5L, JG-Uph-[id number]-Type Natriuretic Peptide 2667H 04/21/19 09:40: Immature Granulocyte % (Auto) , Monocytes # (Auto) , Nucleated Red Blood Cells % (auto) 1.2H Microbiology Microbiology 04/19/19 Stool Occult Blood (MARIA LUISA) - Final, Complete 04/16/19 Stool Occult Blood (MARIA LUISA) - Final, Complete 04/15/19 Eye/Ear/Nose/Throat Culture - Final, Complete Current Medications Current Medications Current Medications Medications (Trade) Dose Ordered Sig/Ady Route PRN Reason Start Time Stop Time Status Last Admin Dose Admin Acetaminophen (Tylenol Tab) 1,000 mg TID PO 04/14/19 21:00 04/21/19 08:38 Albuterol/ Ipratropium (Duoneb (Ipr 0.5mg/Alb 2.5mg)) 3 ml RQID NEB 04/14/19 20:00 04/20/19 12:55 Allopurinol (Zyloprim) 100 mg DAILY PO 04/15/19 09:00 04/21/19 08:38 Amiodarone HCl (Pacerone, Cordarone) 200 mg DAILY PO 04/15/19 09:00 04/21/19 08:40 Apixaban (Eliquis) 5 mg BID PO 04/14/19 21:00 04/21/19 08:39 Bisacodyl (Dulcolax Tab) 5 mg DAILY PO 04/16/19 09:00 04/18/19 09:46 Bisacodyl (Dulcolax Tab) 5 mg DAILYPRN PRN PO CONSTIPATION 04/14/19 17:00 Budesonide/ Formoterol Fumarate (Symbicort 80/ 4.5mcg) 2 puff BID INH 04/14/19 21:00 04/21/19 07:43 Calcitriol (Rocaltrol) 0.5 mcg DAILY PO 04/15/19 09:00 04/21/19 08:38 Calcium Carbonate (Tums) 500 mg BID PRN PO INDIGESTION 04/18/19 14:45 04/18/19 18:08 Calcium/Vitamin D (Oscal D) 1,000 mg DAILY PO 04/21/19 09:00 04/21/19 09:51 Docusate Sodium (Colace) 100 mg BID PO 04/14/19 21:00 04/18/19 09:50 Ferrous Gluconate (Fergon) 324 mg BID PO 04/14/19 21:00 04/14/19 18:57 DC Ferrous Sulfate (Ferrous Sulfate) 325 mg BID PO 04/14/19 21:00 04/21/19 08:37 Folic Acid (Folic Acid) 1 mg DAILY PO 04/15/19 09:00 04/21/19 08:38 Fosfomycin Tromethamine (Monurol) 3 gm Q7D PO 04/15/19 21:00 04/15/19 21:53 Furosemide (LASIX injection) 20 mg BID@09,17 IV 04/15/19 17:00 04/21/19 08:37 Guaifenesin (Robitussin Tab) 400 mg TID PO 04/17/19 16:00 04/21/19 08:38 Levalbuterol HCl (Xopenex Neb) 1.25 mg Q6HP PRN INH SOB/WHEEZING 04/14/19 17:00 04/14/19 22:31 Levothyroxine Sodium (Synthroid) 137 mcg DAILY@06 PO 04/15/19 06:00 04/21/19 05:31 Lidocaine (Lidoderm Patch) 1 patch DAILY TD 04/21/19 09:00 04/21/19 09:50 Magnesium Hydroxide (Milk Of Magnesia) 30 ml DAILYPRN PRN PO CONSTIPATION 04/14/19 17:00 04/16/19 10:14 Metoprolol Tartrate (Lopressor) 12.5 mg BID PO 04/14/19 21:00 04/15/19 12:36 DC 04/15/19 09:51 Metoprolol Tartrate (Lopressor) 12.5 mg BID PO 04/15/19 21:00 04/21/19 08:38 Miscellaneous (Unresolved Clarification Entry) SEE LABEL COMMENTS DAILY XX 04/14/19 09:00 04/15/19 12:43 DC Miscellaneous (Unresolved Clarification Entry) SEE LABEL COMMENTS DAILY XX 04/20/19 09:00 04/21/19 08:39 DC Nitrofurantoin Monoh/Nitrofur Macro (Macrobid) 100 mg DAILY PO 04/15/19 09:00 04/15/19 11:03 DC Non-Formulary Medication ( See Comment Field Below ) REMOVE LIDODERM PATCH DAILY@21 XX 04/21/19 21:00 Ondansetron HCl (Zofran) 4 mg Q6HP PRN PO NAUSEA 04/14/19 17:00 04/18/19 10:03 Oxycodone HCl (Roxicodone, Oxyir) 5 mg Q4HP PRN PO PAIN 04/14/19 17:00 04/21/19 08:39 Pantoprazole Sodium (Protonix) 40 mg BID PO 04/14/19 21:00 04/16/19 09:33 DC 04/16/19 08:17 Potassium Chloride (Micro-K Extencaps) 20 meq DAILY PO 04/17/19 09:00 04/17/19 10:04 DC Potassium Chloride (Micro-K Extencaps) 20 meq Q48H PO 04/19/19 09:00 04/17/19 10:59 DC Potassium Chloride (Micro-K Extencaps) 40 meq DAILY PO 04/18/19 09:00 04/21/19 08:40 Potassium Chloride (Micro-K Extencaps) 40 meq Q8H PO 04/17/19 08:00 04/17/19 10:04 DC 04/17/19 09:33 Saliva Substitute (Mouthkote) 2 sprays QID MT 04/15/19 13:00 04/20/19 20:00 Senna (Senokot) 1 tab QHS PO 04/14/19 21:00 04/16/19 21:59 Simvastatin (Zocor) 20 mg DAILY PO 04/15/19 09:00 04/21/19 08:39 Spironolactone (Aldactone) 25 mg QAM PO 04/15/19 09:00 04/21/19 08:39 Sucralfate (Carafate) 1 gm ACHS PO 04/16/19 12:00 04/16/19 11:33 DC Thiamine HCl (Thiamine HCl) 100 mg DAILY PO 04/15/19 09:00 04/21/19 08:37 Tiotropium [place] (Spiriva Handihaler) 1 inhalation DAILY@08 INH 04/15/19 08:00 04/21/19 07:43 Trazodone HCl (Desyrel) 25 mg Q6H PRN PO AGITATION 04/14/19 18:45 Trazodone HCl (Desyrel) 25 mg QHS PO 04/14/19 21:00 04/20/19 19:59 Verapamil HCl (Isoptin-Sr, Calan Sr) 120 mg BID PO 04/15/19 21:00 04/21/19 08:39 CHANDANA BRICEÑO MD Apr 21, 2019 10:23
[2019-04-21 10:41] LABS: ATYPICAL LYMPH 2 % (0-5); LYMPHOCYTES 17 % (16-44); METAMYELOCYTES 3 % (0-0); MONOCYTES 13 % (0-5); MYELOCYTES 5 % (0-0); NEUTROPHILS 54 % (28-66)
[2019-04-21 10:42] LABS: ANISOCYTOSIS 1+; HYPOCHROMASIA 2+; PLATELET ESTIMATE DECREASED (NORMAL); TOXIC VACUOLATION 2+
[2019-04-21 14:00] VITALS: BP 108/59
[2019-04-21 20:00] VITALS: BP 100/56
[2019-04-21] MEDS: traZODone 25MG PER 1/2 TABLET PO SCH (20:24)
[2019-04-21] MEDS: SENNA 8.6 MG TAB (SENOKOT) PO SCH (20:25)
[2019-04-21] MEDS: **NOTE PATIENT COMMENT** MISC XX SCH (21:00)
[2019-04-22 06:00] VITALS: BP 110/60
[2019-04-22] MEDS: LEVOTHYROXINE 137MCG TABLET (0.137MG) PO SCH (06:09)
[2019-04-22] MEDS: oxyCODONE 5MG TAB PO PRN (06:09)
[2019-04-22] MEDS: IPRATROPIUM 0.5MG/ALBUTEROL 2.5MG INH SOL UD 3ML (DUONEB)(J7620) NEB SCH ×4 (07:28→20:00)
[2019-04-22] MEDS: TIOTROPIUM INHALER/CAPSULE (SPIRIVA) INH SCH (07:28)
[2019-04-22] MEDS: SYMBICORT 80/4.5MCG INHALER 6GM INH SCH ×2 (07:28→20:35)
[2019-04-22] MEDS: SPIRONOLACTONE 25 MG TAB PO SCH (08:08)
[2019-04-22] MEDS: DOCUSATE SODIUM 100 MG CAP PO SCH ×2 (08:08→20:55)
[2019-04-22] MEDS: METOPROLOL TART 12.5 MG PER 1/2 TAB PO SCH ×2 (08:08→20:55)
[2019-04-22] MEDS: BISACODYL 5 MG TAB PO SCH (08:08)
[2019-04-22] MEDS: VERAPAMIL 120 MG SR TAB PO SCH ×2 (08:09→20:53)
[2019-04-22] MEDS: FERROUS SULFATE 325MG TAB PO SCH ×2 (09:35→20:55)
[2019-04-22] MEDS: LIDOCAINE 5% (LIDODERM) PATCH TD SCH (09:35)
[2019-04-22] MEDS: FOLIC ACID 1 MG TAB PO SCH (09:35)
[2019-04-22] MEDS: THIAMINE 100 MG TAB PO SCH (09:36)
[2019-04-22] MEDS: APIXABAN 5 MG TAB (ELIQUIS) PO SCH ×2 (09:36→20:53)
[2019-04-22] MEDS: AMIODARONE 200 MG TAB (PACERONE) PO SCH (09:36)
[2019-04-22] MEDS: guaiFENesin 200 MG TAB PO SCH ×3 (09:36→20:54)
[2019-04-22] MEDS: CALCIUM/VITAMIN D 500 MG TAB PO SCH (09:36)
[2019-04-22] MEDS: POTASSIUM CHLORIDE 10 MEQ SR TABLET PO SCH (09:36)
[2019-04-22] MEDS: ACETAMINOPHEN 500 MG TAB PO SCH ×3 (09:36→20:56)
[2019-04-22] MEDS: CALCITRIOL 0.25 MCG CAP (S0169) PO SCH (09:36)
[2019-04-22] MEDS: allopurinoL 100 MG TAB PO SCH (09:37)
[2019-04-22] MEDS: FUROSEMIDE 20 MG TAB PO SCH ×2 (09:37→17:02)
[2019-04-22] MEDS: SALIVA SUBSTITUTE(MOUTHKOTE) BTL MT SCH ×4 (09:38→20:55)
[2019-04-22] MEDS: SIMVASTATIN 20 MG TAB PO SCH (09:38)
--- NOTE | 2019-04-22 10:41 | IPNPDOC ---
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 She denies being constipated. She reports that usually protonix helps her and this is what she takes at home. She reports her breathing is much better. REVIEW OF SYSTEMS: The following is a completed review of systems and has been reviewed. Review of systems otherwise unremarkable. PAIN: Patient self reports no pain at rest EYES: No recent vision changes EARS, NOSE, & THROAT: denies throat pain, (-) dysphagia, or rhinorrhea CARDIOVASCULAR: Denies chest pain or palpitations PULMONARY:denies shortness of breath GASTROINTESTINAL: Denies constipation/diarrhea GENITOURINARY: denies dysuria MUSCULOSKELETAL: left hip fracture NEUROLOGICAL:no tremor or seizure activity HEMATOLOGICAL: +easy bruising SKIN: +left hip incision and scattered ecchymosis PSYCHIATRIC: +confused (resolved) All other review of systems found to be negative. PHYSICAL EXAMINATION: VITAL SIGNS: Please see below. GENERAL: Pleasant and cooperative. No acute distress. HEENT: PERRL. Extraocular movements intact. Clear conjunctiva CARDIOVASCULAR: Irregular rate and rhythm. No murmurs, rubs, or gallops LUNGS: +CTA throughout ABDOMEN: Soft, nontender, mildly distended. Positive bowel sounds. Normal active bowel sounds NEUROLOGICAL: Alert and oriented x3, appeared confused, but able to follow commands Cranial nerves II through XII grossly intact. Sensation grossly intact including 1st web space on left EXTREMITIES: 5-\5 strength bilateral upper extremities. 4\5 strength right lower extremity. 4/5 strength in left ankle DF, EHL, and PF (limited due to surgery) +LLE edema and RLE edema (improving) (-) Homans SKIN: left hip and groin with ecchymosis, scattered ecchymosis bilat UE, left hip incision with edema and ecchymosis and scant serosanguineous drainage (improving) ASSESSMENT:73-year-old F with past medical history of Afib who presents status post fall with left hip fracture PLAN: 1. 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 Ortho: s/p left hip ORIF, ortho consulted 3. Neuro: patient with delirium and agitation-resolved 4. Cardiac: hx of Afib c/u eliquis, amiodarone, metoprolol, c/u verapamil- medicine consulted to assist in management -recent ECHO showing grade 1 diastolic CHF -acute CHF exacerbation which has resolved, s/p multi-day course of IV lasix, breathing and peripheral edema improving, will switch back to oral 20mg BID and monitor -c/u 1500cc fluid restrict and no salt diet- medicine recs appreciated -daily weight ordered 5. Resp: Hx of COPD, c/u Duonebs standing, monitor for infection -encourage incentive spirometry -c/u Symbicort 6. Renal: FREDY on CKD-stable 7. Heme: patient with significant post-op anemia s/p 4 units rbcs on inpatient with large left groin hematoma, FOBT negative -patient with hx of thrombocytopenia, trending back up from 40s to 80s, will c/u to monitor as restarting protonix today for dyspepsia -less drainage from surgical incision 8. DVT ppx: c/u Eliquis 5 BID for afib -Doppler negative for proximal LLE DVT 9. Pain: Tylenol, oxycodone 10. GI px: will restart protonix as patient reports this helps with her dyspepsia and monitor platelets 11. : hx of recurrent UTIs on macrobid ppx, however given Diamond Mounter function swit ched to fosfomycin 3g q7days as off-label prophylactic dosing -patient with incontinence, likely due to diuretic, received Fosfomycin, will hold off on UA and c/u to trend leukocytosis -no dysuria reported 10. Dispo: 04-28-19 to home, progressing towards goals Allergies Coded Allergies: tetracycline (Verified Allergy, Severe, swelling, peeling of the tongue, 02/19/19) zolpidem (Verified Allergy, Severe, respiratory distress, 02/19/19) Sulfa (Sulfonamide Antibiotics) (Verified Allergy, Intermediate, hives, 02/19/19) Penicillins (Verified Adverse Reaction, Intermediate, N/V, 02/19/19) tramadol (Verified Adverse Reaction, Intermediate, N/V, 02/19/19) Vital Signs Vital Signs Date Time Temp Pulse Resp B/P (MAP) Pulse Ox O2 Delivery O2 Flow Rate FiO2 04/22/19 08:09 82 110/60 04/22/19 06:39 18 04/22/19 06:00 97.2 100 Room Air 04/18/19 14:17 1.0 Microbiology Microbiology 04/19/19 Stool Occult Blood (MARIA LUISA) - Final, Complete 04/16/19 Stool Occult Blood (MARIA LUISA) - Final, Complete 04/15/19 Eye/Ear/Nose/Throat Culture - Final, Complete Current Medications Current Medications Current Medications Medications (Trade) Dose Ordered Sig/Ady Route PRN Reason Start Time Stop Time Status Last Admin Dose Admin Acetaminophen (Tylenol Tab) 1,000 mg TID PO 04/14/19 21:00 04/22/19 09:36 Albuterol/ Ipratropium (Duoneb (Ipr 0.5mg/Alb 2.5mg)) 3 ml RQID NEB 04/14/19 20:00 04/21/19 11:16 Allopurinol (Zyloprim) 100 mg DAILY PO 04/15/19 09:00 04/22/19 09:37 Amiodarone HCl (Pacerone, Cordarone) 200 mg DAILY PO 04/15/19 09:00 04/22/19 09:36 Apixaban (Eliquis) 5 mg BID PO 04/14/19 21:00 04/22/19 09:36 Bisacodyl (Dulcolax Tab) 5 mg DAILY PO 04/16/19 09:00 04/18/19 09:46 Bisacodyl (Dulcolax Tab) 5 mg DAILYPRN PRN PO CONSTIPATION 04/14/19 17:00 Budesonide/ Formoterol Fumarate (Symbicort 80/ 4.5mcg) 2 puff BID INH 04/14/19 21:00 04/22/19 07:28 Calcitriol (Rocaltrol) 0.5 mcg DAILY PO 04/15/19 09:00 04/22/19 09:36 Calcium Carbonate (Tums) 500 mg BID PRN PO INDIGESTION 04/18/19 14:45 04/18/19 18:08 Calcium/Vitamin D (Oscal D) 1,000 mg DAILY PO 04/21/19 09:00 04/22/19 09:36 Docusate Sodium (Colace) 100 mg BID PO 04/14/19 21:00 04/18/19 09:50 Ferrous Gluconate (Fergon) 324 mg BID PO 04/14/19 21:00 04/14/19 18:57 DC Ferrous Sulfate (Ferrous Sulfate) 325 mg BID PO 04/14/19 21:00 04/22/19 09:35 Folic Acid (Folic Acid) 1 mg DAILY PO 04/15/19 09:00 04/22/19 09:35 Fosfomycin Tromethamine (Monurol) 3 gm Q7D PO 04/15/19 21:00 04/15/19 21:53 Furosemide (LASIX injection) 20 mg BID@,17 IV 04/15/19 17:00 04/21/19 19:00 DC 04/21/19 17:36 Furosemide (Lasix) 20 mg BID@, PO 04/22/19 09:00 04/22/19 09:37 Guaifenesin (Robitussin Tab) 400 mg TID PO 04/17/19 16:00 04/22/19 09:36 Levalbuterol HCl (Xopenex Neb) 1.25 mg Q6HP PRN INH SOB/WHEEZING 04/14/19 17:00 04/14/19 22:31 Levothyroxine Sodium (Synthroid) 137 mcg DAILY@06 PO 04/15/19 06:00 04/22/19 06:09 Lidocaine (Lidoderm Patch) 1 patch DAILY TD 04/21/19 09:00 04/22/19 09:35 Magnesium Hydroxide (Milk Of Magnesia) 30 ml DAILYPRN PRN PO CONSTIPATION 04/14/19 17:00 04/16/19 10:14 Metoprolol Tartrate (Lopressor) 12.5 mg BID PO 04/14/19 21:00 04/15/19 12:36 DC 04/15/19 09:51 Metoprolol Tartrate (Lopressor) 12.5 mg BID PO 04/15/19 21:00 04/21/19 08:38 Miscellaneous (Unresolved Clarification Entry) SEE LABEL COMMENTS DAILY XX 04/14/19 09:00 04/15/19 12:43 DC Miscellaneous (Unresolved Clarification Entry) SEE LABEL COMMENTS DAILY XX 04/20/19 09:00 04/21/19 08:39 DC Nitrofurantoin Monoh/Nitrofur Macro (Macrobid) 100 mg DAILY PO 04/15/19 09:00 04/15/19 11:03 DC Non-Formulary Medication ( See Comment Field Below ) REMOVE LIDODERM PATCH DAILY@21 XX 04/21/19 21:00 04/21/19 21:00 Ondansetron HCl (Zofran) 4 mg Q6HP PRN PO NAUSEA 04/14/19 17:00 04/18/19 10:03 Oxycodone HCl (Roxicodone, Oxyir) 5 mg Q4HP PRN PO PAIN 04/14/19 17:00 04/22/19 06:09 Pantoprazole Sodium (Protonix) 40 mg BID PO 04/14/19 21:00 04/16/19 09:33 DC 04/16/19 08:17 Potassium Chloride (Micro-K Extencaps) 20 meq DAILY PO 04/17/19 09:00 04/17/19 10:04 DC Potassium Chloride (Micro-K Extencaps) 20 meq Q48H PO 04/19/19 09:00 04/17/19 10:59 DC Potassium Chloride (Micro-K Extencaps) 40 meq DAILY PO 04/18/19 09:00 04/22/19 09:36 Potassium Chloride (Micro-K Extencaps) 40 meq Q8H PO 04/17/19 08:00 04/17/19 10:04 DC 04/17/19 09:33 Saliva Substitute (Mouthkote) 2 sprays QID MT 04/15/19 13:00 04/22/19 09:38 Senna (Senokot) 1 tab QHS PO 04/14/19 21:00 04/16/19 21:59 Simvastatin (Zocor) 20 mg DAILY PO 04/15/19 09:00 04/22/19 09:38 Spironolactone (Aldactone) 25 mg QAM PO 04/15/19 09:00 04/21/19 08:39 Sucralfate (Carafate) 1 gm ACHS PO 04/16/19 12:00 04/16/19 11:33 DC Thiamine HCl (Thiamine HCl) 100 mg DAILY PO 04/15/19 09:00 04/22/19 09:36 Tiotropium [place] (Spiriva Handihaler) 1 inhalation DAILY@08 INH 04/15/19 08:00 04/22/19 07:28 Trazodone HCl (Desyrel) 25 mg Q6H PRN PO AGITATION 04/14/19 18:45 Trazodone HCl (Desyrel) 25 mg QHS PO 04/14/19 21:00 04/21/19 20:24 Verapamil HCl (Isoptin-Sr, Calan Sr) 120 mg BID PO 04/15/19 21:00 04/21/19 08:39 CHANDANA BRICEÑO MD Apr 22, 2019 10:41
[2019-04-22] MEDS: PANTOPRAZOLE 40MG TAB (PROTONIX) PO SCH (12:18)
[2019-04-22 14:00] VITALS: BP 123/63
[2019-04-22 19:50] VITALS: BP 110/66
[2019-04-22] MEDS: traZODone 25MG PER 1/2 TABLET PO SCH (20:54)
[2019-04-22] MEDS: FOSFOMYCIN TROMETHAMINE 3 GM POWDER PACKET (MONUROL) PO SCH (20:55)
[2019-04-22] MEDS: **NOTE PATIENT COMMENT** MISC XX SCH (20:56)
[2019-04-22] MEDS: SENNA 8.6 MG TAB (SENOKOT) PO SCH (20:56)
[2019-04-23 05:10] VITALS: BP 111/58
[2019-04-23] MEDS: LEVOTHYROXINE 137MCG TABLET (0.137MG) PO SCH (06:05)
[2019-04-23] MEDS: oxyCODONE 5MG TAB PO PRN (06:05)
[2019-04-23 06:54] LABS: HEMATOCRIT 28.9 % (36.0-47.0); HEMOGLOBIN 8.3 g/dl (12.0-15.5); MEAN CORPUSCULAR HEMOGLOBIN 28.1 pg (27.0-33.0); MEAN CORPUSCULAR HGB CONC 28.7 g/dl (32.0-36.5); RED BLOOD COUNT 2.95 10^6/uL (4.00-5.40); WHITE BLOOD COUNT 8.6 10^3/uL (4.0-10.0)
[2019-04-23 07:00] LABS: PLATELET COUNT, AUTOMATED 98 10^3/uL (150-450)
[2019-04-23 07:11] LABS: CALCIUM LEVEL 6.7 MG/DL (8.8-10.2); CREATININE FOR GFR 1.11 MG/DL (0.55-1.30); GLOMERULAR FILTRATION RATE 51.2 (>39); POTASSIUM SERUM 4.3 MEQ/L (3.5-5.1)
[2019-04-23 07:17] LABS: LYMPHOCYTES 16 % (16-44); METAMYELOCYTES 3 % (0-0); MONOCYTES 22 % (0-5); MYELOCYTES 1 % (0-0); NEUTROPHILS 57 % (28-66)
[2019-04-23 07:18] LABS: PLATELET ESTIMATE DECREASED (NORMAL)
[2019-04-23 07:19] LABS: ANISOCYTOSIS 2+; GIANT PLATELETS 1+; HYPOCHROMASIA 1+; TOXIC VACUOLATION 1+
[2019-04-23 07:20] LABS: POLYCHROMASIA 1+
[2019-04-23] MEDS: IPRATROPIUM 0.5MG/ALBUTEROL 2.5MG INH SOL UD 3ML (DUONEB)(J7620) NEB SCH ×4 (08:00→20:00)
[2019-04-23] MEDS: DOCUSATE SODIUM 100 MG CAP PO SCH ×2 (08:21→20:31)
[2019-04-23] MEDS: BISACODYL 5 MG TAB PO SCH (08:21)
[2019-04-23] MEDS ORDERED: CALCIUM/VITAMIN D 500 MG TAB PO SCH (09:00)
[2019-04-23] MEDS ORDERED: CALCITRIOL 0.25 MCG CAP (S0169) PO SCH (09:00)
[2019-04-23] MEDS: SPIRONOLACTONE 25 MG TAB PO SCH (09:01)
[2019-04-23] MEDS: VERAPAMIL 120 MG SR TAB PO SCH ×2 (09:02→20:29)
[2019-04-23] MEDS: FERROUS SULFATE 325MG TAB PO SCH ×2 (09:03→20:30)
[2019-04-23] MEDS: ACETAMINOPHEN 500 MG TAB PO SCH ×3 (09:03→20:30)
[2019-04-23] MEDS: SIMVASTATIN 20 MG TAB PO SCH (09:03)
[2019-04-23] MEDS: METOPROLOL TART 12.5 MG PER 1/2 TAB PO SCH ×2 (09:03→20:30)
[2019-04-23] MEDS: FOLIC ACID 1 MG TAB PO SCH (09:03)
[2019-04-23] MEDS: AMIODARONE 200 MG TAB (PACERONE) PO SCH (09:04)
[2019-04-23] MEDS: PANTOPRAZOLE 40MG TAB (PROTONIX) PO SCH (09:04)
[2019-04-23] MEDS: THIAMINE 100 MG TAB PO SCH (09:04)
[2019-04-23] MEDS: guaiFENesin 200 MG TAB PO SCH ×3 (09:04→20:30)
[2019-04-23] MEDS: allopurinoL 100 MG TAB PO SCH (09:04)
[2019-04-23] MEDS: SALIVA SUBSTITUTE(MOUTHKOTE) BTL MT SCH ×4 (09:04→20:32)
[2019-04-23] MEDS: FUROSEMIDE 20 MG TAB PO SCH ×2 (09:04→16:48)
[2019-04-23] MEDS: APIXABAN 5 MG TAB (ELIQUIS) PO SCH ×2 (09:04→20:28)
[2019-04-23] MEDS: LIDOCAINE 5% (LIDODERM) PATCH TD SCH (09:05)
--- NOTE | 2019-04-23 09:35 | IPNPDOC ---
PM&R Progress Note DATE OF SERVICE: Apr 23, 2019 Chief Service Dispatcher Progress Note Subjective: Patient seen on Nust[facility] stating her nausea is better today since starting back on Protonix. She reports left hip pain that is achy in nature. She reports she has a bit of a cough. Patient seen this morning REVIEW OF SYSTEMS: The following is a completed review of systems and has been reviewed. Review of systems otherwise unremarkable. PAIN: Patient self reports no pain at rest EYES: No recent vision changes EARS, NOSE, & THROAT: denies throat pain, (-) dysphagia, or rhinorrhea CARDIOVASCULAR: Denies chest pain or palpitations PULMONARY:denies shortness of breath GASTROINTESTINAL: Denies constipation/diarrhea GENITOURINARY: denies dysuria MUSCULOSKELETAL: left hip fracture NEUROLOGICAL:no tremor or seizure activity HEMATOLOGICAL: +easy bruising SKIN: +left hip incision and scattered ecchymosis PSYCHIATRIC: +confused (resolved) All other review of systems found to be negative. PHYSICAL EXAMINATION: VITAL SIGNS: Please see below. GENERAL: Pleasant and cooperative. No acute distress. HEENT: PERRL. Extraocular movements intact. Clear conjunctiva CARDIOVASCULAR: Irregular rate and rhythm. No murmurs, rubs, or gallops LUNGS: +CTA throughout, no cracklse or wheeze ABDOMEN: Soft, nontender, mildly distended. Positive bowel sounds. Normal active bowel sounds NEUROLOGICAL: Alert and oriented x3, appeared confused, but able to follow comma nds Cranial nerves II through XII grossly intact. Sensation grossly intact including 1st web space on left EXTREMITIES: 5-\5 strength bilateral upper extremities. 4\5 strength right lower extremity. 4/5 strength in left ankle DF, EHL, and PF (limited due to surgery) +LLE edema and RLE edema (improving) (-) Homans SKIN: left hip and groin with ecchymosis, scattered ecchymosis bilat UE, left hip incision with edema and ecchymosis and scant serosanguineous drainage (improving) ASSESSMENT:73-year-old F with past medical history of Afib who presents status post fall with left hip fracture PLAN: 1. Rehab- PT- WBAT to LLE, advance agit training, strengthen bilat LE, maintain ROM and stretch- ambulating with RW OT- advance ADLs, scapular stabilization exercises RCP for hx of esophageal strictures and cog eval 2. Ortho: s/p left hip ORIF, ortho consulted 3. Neuro: patient with delirium and agitation-resolved 4. Cardiac: hx of Afib c/u eliquis, amiodarone, metoprolol, c/u verapamil- med icine consulted to assist in management -recent ECHO showing grade 1 diastolic CHF -acute CHF exacerbation which has resolved, s/p multi-day course of IV lasix, breathing and peripheral edema improving, c/u oral 20mg BID, also has been on spironolacton 25mg daily-c/u to monitor -c/u 1500cc fluid restrict and no salt diet- medicine recs appreciated -daily weight ordered 5. Resp: Hx of COPD, c/u Duonebs standing, monitor for infection -encourage incentive spirometry -c/u Symbicort 6. Renal: FREDY on CKD-stable, will consult renal for hypocalcemia in setting of CKD and will increase calcitriol from 5mcg daily to BID, c/u oral supplement 7. Heme: patient with significant post-op anemia s/p 4 units rbcs on inpatient with large left groin hematoma, FOBT negative -patient with hx of thrombocytopenia-stable at 98 today, c/u to monitor while on protonix -less drainage from surgical incision 8. DVT ppx: c/u Eliquis 5 BID for afib -Doppler negative for proximal LLE DVT 9. Pain: Tylenol, oxycodone (changed to standing), and will start gabapentin 100mg TID 10. GI px: will restart protonix as patient reports this helps with her dyspepsia and monitor platelets 11. : hx of recurrent UTIs on macrobid ppx, however given [employer] function switched to fosfomycin 3g q7days as off-label prophylactic dosing -no dysuria reported, leukocytosis improving 10. Dispo: 04-28-19 to home, progressing towards goals Allergies Coded Allergies: tetracycline (Verified Allergy, Severe, swelling, peeling of the tongue, 02/19/19) zolpidem (Verified Allergy, Severe, respiratory distress, 02/19/19) Sulfa (Sulfonamide Antibiotics) (Verified Allergy, Intermediate, hives, 02/19/19) Penicillins (Verified Adverse Reaction, Intermediate, N/V, 02/19/19) tramadol (Verified Adverse Reaction, Intermediate, N/V, 02/19/19) Vital Signs Vital Signs Date Time Temp Pulse Resp B/P (MAP) Pulse Ox O2 Delivery O2 Flow Rate FiO2 04/23/19 09:03 83 133/70 04/23/19 06:05 18 04/23/19 05:10 97.8 99 Room Air 04/18/19 14:17 1.0 Laboratory Data CBC/BMP Laboratory Tests 04/23/19 06:21 Labs 24H Laboratory Tests 2 04/23/19 06:21: Immature Granulocyte % (Auto) , Monocytes # (Auto) , Nucleated Red Blood Cells % (auto) 0.7H, Neutrophils 57, Band Neutrophils 1, Lymphocytes (Manual) 16, Monocytes (Manual) 22H, Metamyelocytes 3H, Myelocytes 1H, Polychromasia 1+, Hypochromasia 1+, Anisocytosis 2+, Macrocytosis 1+, Toxic Vacuolation 1+, Giant Platelets 1+, Platelet Estimate DECREASED, Immature Platelet Fraction 14.4H, Anion Gap 5L, Glomerular Filtration Rate 51.2, Calcium Level 6.7L Microbiology Microbiology 04/19/19 Stool Occult Blood (MARIA LUISA) - Final, Complete 04/16/19 Stool Occult Blood (MARIA LUISA) - Final, Complete 04/15/19 Eye/Ear/Nose/Throat Culture - Final, Complete Current Medications Current Medications Current Medications Medications (Trade) Dose Ordered Sig/Ady Route PRN Reason Start Time Stop Time Status Last Admin Dose Admin Acetaminophen (Tylenol Tab) 1,000 mg TID PO 04/14/19 21:00 04/23/19 09:03 Albuterol/ Ipratropium (Duoneb (Ipr 0.5mg/Alb 2.5mg)) 3 ml RQID NEB 04/14/19 20:00 04/22/19 15:07 Allopurinol (Zyloprim) 100 mg DAILY PO 04/15/19 09:00 04/23/19 09:04 Amiodarone HCl (Pacerone, Cordarone) 200 mg DAILY PO 04/15/19 09:00 04/23/19 09:04 Apixaban (Eliquis) 5 mg BID PO 04/14/19 21:00 04/23/19 09:04 Bisacodyl (Dulcolax Tab) 5 mg DAILY PO 04/16/19 09:00 04/18/19 09:46 Bisacodyl (Dulcolax Tab) 5 mg DAILYPRN PRN PO CONSTIPATION 04/14/19 17:00 Budesonide/ Formoterol Fumarate (Symbicort 80/ 4.5mcg) 2 puff BID INH 04/14/19 21:00 04/22/19 20:35 Calcitriol (Rocaltrol) 0.5 mcg BID PO 04/23/19 09:00 04/23/19 09:01 Calcitriol (Rocaltrol) 0.5 mcg DAILY PO 04/15/19 09:00 04/23/19 07:44 DC 04/22/19 09:36 Calcium Carbonate (Tums) 500 mg BID PRN PO INDIGESTION 04/18/19 14:45 04/18/19 18:08 Calcium/Vitamin D (Oscal D) 1,000 mg DAILY PO 04/21/19 09:00 04/23/19 07:44 DC 04/22/19 09:36 Calcium/Vitamin D (Oscal D) 2,000 mg DAILY PO 04/23/19 09:00 04/23/19 09:02 Docusate Sodium (Colace) 100 mg BID PO 04/14/19 21:00 04/18/19 09:50 Ferrous Gluconate (Fergon) 324 mg BID PO 04/14/19 21:00 04/14/19 18:57 DC Ferrous Sulfate (Ferrous Sulfate) 325 mg BID PO 04/14/19 21:00 04/23/19 09:03 Folic Acid (Folic Acid) 1 mg DAILY PO 04/15/19 09:00 04/23/19 09:03 Fosfomycin Tromethamine (Monurol) 3 gm Q7D PO 04/15/19 21:00 04/22/19 20:55 Furosemide (LASIX injection) 20 mg BID@,17 IV 04/15/19 17:00 04/21/19 19:00 DC 04/21/19 17:36 Furosemide (Lasix) 20 mg BID@,17 PO 04/22/19 09:00 04/23/19 09:04 Guaifenesin (Robitussin Tab) 400 mg TID PO 04/17/19 16:00 04/23/19 09:04 Levalbuterol HCl (Xopenex Neb) 1.25 mg Q6HP PRN INH SOB/WHEEZING 04/14/19 17:00 04/14/19 22:31 Levothyroxine Sodium (Synthroid) 137 mcg DAILY@06 PO 04/15/19 06:00 04/23/19 06:05 Lidocaine (Lidoderm Patch) 1 patch DAILY TD 04/21/19 09:00 04/23/19 09:05 Magnesium Hydroxide (Milk Of Magnesia) 30 ml DAILYPRN PRN PO CONSTIPATION 04/14/19 17:00 04/16/19 10:14 Metoprolol Tartrate (Lopressor) 12.5 mg BID PO 04/14/19 21:00 04/15/19 12:36 DC 04/15/19 09:51 Metoprolol Tartrate (Lopressor) 12.5 mg BID PO 04/15/19 21:00 04/23/19 09:03 Miscellaneous (Unresolved Clarification Entry) SEE LABEL COMMENTS DAILY XX 04/14/19 09:00 04/15/19 12:43 DC Miscellaneous (Unresolved Clarification Entry) SEE LABEL COMMENTS DAILY XX 04/20/19 09:00 04/21/19 08:39 DC Nitrofurantoin Monoh/Nitrofur Macro (Macrobid) 100 mg DAILY PO 04/15/19 09:00 04/15/19 11:03 DC Non-Formulary Medication ( See Comment Field Below ) REMOVE LIDODERM PATCH DAILY@21 XX 04/21/19 21:00 04/22/19 20:56 Ondansetron HCl (Zofran) 4 mg Q6HP PRN PO NAUSEA 04/14/19 17:00 04/18/19 10:03 Oxycodone HCl (Roxicodone, Oxyir) 5 mg Q4HP PRN PO PAIN 04/14/19 17:00 04/23/19 06:05 Pantoprazole Sodium (Protonix) 40 mg BID PO 04/14/19 21:00 04/16/19 09:33 DC 04/16/19 08:17 Pantoprazole Sodium (Protonix) 40 mg DAILY PO 04/22/19 09:00 04/23/19 09:04 Potassium Chloride (Micro-K Extencaps) 20 meq DAILY PO 04/17/19 09:00 04/17/19 10:04 DC Potassium Chloride (Micro-K Extencaps) 20 meq Q48H PO 04/19/19 09:00 04/17/19 10:59 DC Potassium Chloride (Micro-K Extencaps) 40 meq DAILY PO 04/18/19 09:00 04/22/19 10:28 DC 04/22/19 09:36 Potassium Chloride (Micro-K Extencaps) 40 meq Q8H PO 04/17/19 08:00 04/17/19 10:04 DC 04/17/19 09:33 Saliva Substitute (Mouthkote) 2 sprays QID MT 04/15/19 13:00 04/23/19 09:04 Senna (Senokot) 1 tab QHS PO 04/14/19 21:00 04/16/19 21:59 Simvastatin (Zocor) 20 mg DAILY PO 04/15/19 09:00 04/23/19 09:03 Spironolactone (Aldactone) 25 mg QAM PO 04/15/19 09:00 04/23/19 09:01 Sucralfate (Carafate) 1 gm ACHS PO 04/16/19 12:00 04/16/19 11:33 DC Thiamine HCl (Thiamine HCl) 100 mg DAILY PO 04/15/19 09:00 04/23/19 09:04 Tiotropium [place] (Spiriva Handihaler) 1 inhalation DAILY@08 INH 04/15/19 08:00 04/22/19 07:28 Trazodone HCl (Desyrel) 25 mg Q6H PRN PO AGITATION 04/14/19 18:45 Trazodone HCl (Desyrel) 25 mg QHS PO 04/14/19 21:00 04/22/19 20:54 Verapamil HCl (Isoptin-Sr, Calan Sr) 120 mg BID PO 04/15/19 21:00 04/23/19 09:02 CHANDANA BRICEÑO MD Apr 23, 2019 09:35
[2019-04-23] MEDS ORDERED: oxyCODONE 5MG TAB PO ONE (10:00)
[2019-04-23] MEDS: GABAPENTIN 100 MG CAP PO SCH ×2 (10:36→20:31)
[2019-04-23] MEDS: SYMBICORT 80/4.5MCG INHALER 6GM INH SCH ×2 (11:04→20:56)
[2019-04-23] MEDS: TIOTROPIUM INHALER/CAPSULE (SPIRIVA) INH SCH (11:04)
[2019-04-23] MEDS: oxyCODONE 5MG TAB PO SCH ×2 (12:59→16:48)
[2019-04-23 14:00] VITALS: BP 115/55
[2019-04-23 20:26] VITALS: BP 111/62
[2019-04-23] MEDS: traZODone 25MG PER 1/2 TABLET PO SCH (20:30)
[2019-04-23] MEDS: SENNA 8.6 MG TAB (SENOKOT) PO SCH (20:31)
[2019-04-23] MEDS: **NOTE PATIENT COMMENT** MISC XX SCH (20:31)
[2019-04-24 06:34] VITALS: BP 124/69
[2019-04-24] MEDS: oxyCODONE 5MG TAB PO SCH ×3 (06:36→17:09)
[2019-04-24] MEDS: LEVOTHYROXINE 137MCG TABLET (0.137MG) PO SCH (06:36)
[2019-04-24 06:46] LABS: HEMATOCRIT 28.8 % (36.0-47.0); HEMOGLOBIN 8.3 g/dl (12.0-15.5); MEAN CORPUSCULAR HEMOGLOBIN 28.1 pg (27.0-33.0); MEAN CORPUSCULAR HGB CONC 28.8 g/dl (32.0-36.5); MEAN CORPUSCULAR VOLUME 97.6 fl (80.0-96.0); PLATELET COUNT, AUTOMATED 116 10^3/uL (150-450); RED BLOOD COUNT 2.95 10^6/uL (4.00-5.40); WHITE BLOOD COUNT 8.3 10^3/uL (4.0-10.0)
[2019-04-24 07:08] LABS: BASOPHILS 1 % (0-1); EOSINOPHILS 1 % (0-3); LYMPHOCYTES 22 % (16-44); METAMYELOCYTES 2 % (0-0); MONOCYTES 18 % (0-5); MYELOCYTES 2 % (0-0); NEUTROPHILS 54 % (28-66)
[2019-04-24 07:09] LABS: GIANT PLATELETS 1+; PLATELET ESTIMATE DECREASED (NORMAL); POLYCHROMASIA 1+
[2019-04-24 07:10] LABS: ANISOCYTOSIS 2+; HYPOCHROMASIA 1+; POIKILOCYTOSIS 1+; TOXIC VACUOLATION 1+
[2019-04-24 07:14] LABS: CREATININE FOR GFR 1.21 MG/DL (0.55-1.30); GLOMERULAR FILTRATION RATE 46.3 (>39); POTASSIUM SERUM 4.4 MEQ/L (3.5-5.1)
[2019-04-24] MEDS: SYMBICORT 80/4.5MCG INHALER 6GM INH SCH ×2 (07:27→21:01)
[2019-04-24] MEDS: TIOTROPIUM INHALER/CAPSULE (SPIRIVA) INH SCH (07:27)
[2019-04-24] MEDS: IPRATROPIUM 0.5MG/ALBUTEROL 2.5MG INH SOL UD 3ML (DUONEB)(J7620) NEB SCH ×4 (07:30→20:00)
[2019-04-24] MEDS: ACETAMINOPHEN 500 MG TAB PO SCH ×3 (08:57→20:36)
--- NOTE | 2019-04-24 09:27 | IPNPDOC ---
PM&R Progress Note DATE OF SERVICE: Apr 24, 2019 External Auditor Progress Note Subjective: Patient seen in her room stating the middle of her lower back is aching. She would like her lidoderm patch moved to the center. She denies trouble breathing and is asking to get back into bed. Patient seen this morning REVIEW OF SYSTEMS: The following is a completed review of systems and has been reviewed. Review of systems otherwise unremarkable. PAIN: Patient self reports no pain at rest EYES: No recent vision changes EARS, NOSE, & THROAT: denies throat pain, (-) dysphagia, or rhinorrhea CARDIOVASCULAR: Denies chest pain or palpitations PULMONARY:denies shortness of breath GASTROINTESTINAL: Denies constipation/diarrhea GENITOURINARY: denies dysuria MUSCULOSKELETAL: left hip fracture NEUROLOGICAL:no tremor or seizure activity HEMATOLOGICAL: +easy bruising SKIN: +left hip incision and scattered ecchymosis PSYCHIATRIC: +confused (resolved) All other review of systems found to be negative. PHYSICAL EXAMINATION: VITAL SIGNS: Please see below. GENERAL: Pleasant and cooperative. No acute distress. HEENT: PERRL. Extraocular movements intact. Clear conjunctiva CARDIOVASCULAR: Irregular rate and rhythm. No murmurs, rubs, or gallops LUNGS: +CTA throughout, no cracklse or wheeze ABDOMEN: Soft, nontender, mildly distended. Positive bowel sounds. Normal active bowel sounds NEUROLOGICAL: Alert and oriented x3, appeared confused, but able to follow commands Cranial nerves II through XII grossly intact. Sensation grossly intact including 1st web space on left EXTREMITIES: 5-\5 strength bilateral upper extremities. 4\5 strength right lower extremity. 4/5 strength in left ankle DF, EHL, and PF (limited due to surgery) +LLE edema and RLE edema (slightly more edematous) (-) Homans SKIN: left hip and groin with ecchymosis, scattered ecchymosis bilat UE, left hip incision with edema and ecchymosis and scant serosanguineous drainage (im proving) ASSESSMENT:73-year-old F with past medical history of Afib who presents status post fall with left hip fracture PLAN: 1. 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 Ortho: s/p left hip ORIF, ortho consulted 3. Neuro: patient with delirium and agitation-resolved 4. Cardiac: hx of Afib c/u eliquis, amiodarone, metoprolol, c/u verapamil- medicine consulted to assist in management -recent ECHO showing grade 1 diastolic CHF -acute CHF exacerbation which has resolved, s/p multi-day course of IV lasix, breathing and peripheral edema improving, will increase today to 40mg BID given worsening edema on today's exam -c/u spironolactone 25mg daily-c/u to monitor -c/u 1500cc fluid restrict and no salt diet- medicine recs appreciated -daily weight ordered 5. Resp: Hx of COPD, c/u Duonebs standing, monitor for infection -encourage incentive spirometry -c/u Symbicort 6. Renal: FREDY on CKD-stable- patient's hypocalcemia is normal when corrected in setting of low albumin -c/u calcitriol home dose 7. Heme: patient with significant post-op anemia s/p 4 units rbcs on inpatient with large left groin hematoma improving, FOBT negative -patient with hx of thrombocytopenia-stable at 116 today, c/u to monitor while on protonix -less drainage from surgical incision 8. DVT ppx: c/u Eliquis 5 BID for afib -Doppler negative for proximal LLE DVT 9. Pain: Tylenol, oxycodone (changed to standing), c/u gabapentin 200mg BID 10. GI px: will restart protonix as patient reports this helps with her dyspepsia and monitor platelets 11. : hx of recurrent UTIs on macrobid ppx, however given Director Of [employer] function switched to fosfomycin 3g q7days as off-label prophylactic dosing -no dysuria reported, leukocytosis improving 10. Dispo: 04-28-19 to home, progressing towards goals Allergies Coded Allergies: tetracycline (Verified Allergy, Severe, swelling, peeling of the tongue, 02/19/19) zolpidem (Verified Allergy, Severe, respiratory distress, 02/19/19) Sulfa (Sulfonamide Antibiotics) (Verified Allergy, Intermediate, hives, 02/19/19) Penicillins (Verified Adverse Reaction, Intermediate, N/V, 02/19/19) tramadol (Verified Adverse Reaction, Intermediate, N/V, 02/19/19) Vital Signs Vital Signs Date Time Temp Pulse Resp B/P (MAP) Pulse Ox O2 Delivery O2 Flow Rate FiO2 04/24/19 06:36 18 04/24/19 06:34 99.1 68 124/69 (87) 100 Room Air 04/18/19 14:17 1.0 Laboratory Data CBC/BMP Laboratory Tests 04/24/19 06:07 Labs 24H Laboratory Tests 2 04/24/19 06:07: Immature Granulocyte % (Auto) , Nucleated Red Blood Cells % (auto) 0.6H, Neutro phils 54, Lymphocytes (Manual) 22, Monocytes (Manual) 18H, Eosinophils (Manual) 1, Basophils (Manual) 1, Metamyelocytes 2H, Myelocytes 2H, Polychromasia 1+, Hypochromasia 1+, Poikilocytosis 1+, Basophilic Stippling 1+, Anisocytosis 2+, Macrocytosis 1+, Toxic Vacuolation 1+, Giant Platelets 1+, Platelet Estimate DECREASED, Anion Gap 6L, Glomerular Filtration Rate 46.3, Calcium Level 7.0L Microbiology Microbiology 04/19/19 Stool Occult Blood (MARIA LUISA) - Final, Complete 04/16/19 Stool Occult Blood (MARIA LUISA) - Final, Complete 04/15/19 Eye/Ear/Nose/Throat Culture - Final, Complete Current Medications Current Medications Current Medications Medications (Trade) Dose Ordered Sig/Ady Route PRN Reason Start Time Stop Time Status Last Admin Dose Admin Acetaminophen (Tylenol Tab) 1,000 mg TID PO 04/14/19 21:00 04/24/19 08:57 Albuterol/ Ipratropium (Duoneb (Ipr 0.5mg/Alb 2.5mg)) 3 ml RQID NEB 04/14/19 20:00 04/23/19 15:03 Allopurinol (Zyloprim) 100 mg DAILY PO 04/15/19 09:00 04/23/19 09:04 Amiodarone HCl (Pacerone, Cordarone) 200 mg DAILY PO 04/15/19 09:00 04/23/19 09:04 Apixaban (Eliquis) 5 mg BID PO 04/14/19 21:00 04/23/19 20:28 Bisacodyl (Dulcolax Tab) 5 mg DAILY PO 04/16/19 09:00 04/18/19 09:46 Bisacodyl (Dulcolax Tab) 5 mg DAILYPRN PRN PO CONSTIPATION 04/14/19 17:00 Budesonide/ Formoterol Fumarate (Symbicort 80/ 4.5mcg) 2 puff BID INH 04/14/19 21:00 04/24/19 07:27 Calcitriol (Rocaltrol) 0.5 mcg BID PO 04/23/19 09:00 04/23/19 11:05 DC 04/23/19 09:01 Calcitriol (Rocaltrol) 0.5 mcg DAILY PO 04/24/19 09:00 Calcitriol (Rocaltrol) 0.5 mcg DAILY PO 04/15/19 09:00 04/23/19 07:44 DC 04/22/19 09:36 Calcium Carbonate (Tums) 500 mg BID PRN PO INDIGESTION 04/18/19 14:45 04/23/19 09:26 DC 04/18/19 18:08 Calcium/Vitamin D (Oscal D) 1,000 mg DAILY PO 04/21/19 09:00 04/23/19 07:44 DC 04/22/19 09:36 Calcium/Vitamin D (Oscal D) 1,000 mg DAILY PO 04/24/19 09:00 Calcium/Vitamin D (Oscal D) 2,000 mg DAILY PO 04/23/19 09:00 04/23/19 11:05 DC 04/23/19 09:02 Docusate Sodium (Colace) 100 mg BID PO 04/14/19 21:00 04/18/19 09:50 Ferrous Gluconate (Fergon) 324 mg BID PO 04/14/19 21:00 04/14/19 18:57 DC Ferrous Sulfate (Ferrous Sulfate) 325 mg BID PO 04/14/19 21:00 04/23/19 20:30 Folic Acid (Folic Acid) 1 mg DAILY PO 04/15/19 09:00 04/23/19 09:03 Fosfomycin Tromethamine (Monurol) 3 gm Q7D PO 04/15/19 21:00 04/22/19 20:55 Furosemide (LASIX injection) 20 mg BID@09,17 IV 04/15/19 17:00 04/21/19 19:00 DC 04/21/19 17:36 Furosemide (Lasix) 20 mg BID@09,17 PO 04/22/19 09:00 04/23/19 16:48 Gabapentin (Neurontin) 100 mg BID PO 04/23/19 09:00 04/23/19 20:31 Guaifenesin (Robitussin Tab) 400 mg TID PO 04/17/19 16:00 04/23/19 20:30 Levalbuterol HCl (Xopenex Neb) 1.25 mg Q6HP PRN INH SOB/WHEEZING 04/14/19 17:00 04/23/19 09:26 DC 04/14/19 22:31 Levothyroxine Sodium (Synthroid) 137 mcg DAILY@06 PO 04/15/19 06:00 04/24/19 06:36 Lidocaine (Lidoderm Patch) 1 patch DAILY TD 04/21/19 09:00 04/23/19 09:05 Magnesium Hydroxide (Milk Of Magnesia) 30 ml DAILYPRN PRN PO CONSTIPATION 04/14/19 17:00 04/16/19 10:14 Metoprolol Tartrate (Lopressor) 12.5 mg BID PO 04/14/19 21:00 04/15/19 12:36 DC 04/15/19 09:51 Metoprolol Tartrate (Lopressor) 12.5 mg BID PO 04/15/19 21:00 04/23/19 20:30 Miscellaneous (Unresolved Clarification Entry) SEE LABEL COMMENTS DAILY XX 04/14/19 09:00 04/15/19 12:43 DC Miscellaneous (Unresolved Clarification Entry) SEE LABEL COMMENTS DAILY XX 04/20/19 09:00 04/21/19 08:39 DC Nitrofurantoin Monoh/Nitrofur Macro (Macrobid) 100 mg DAILY PO 04/15/19 09:00 04/15/19 11:03 DC Non-Formulary Medication ( See Comment Field Below ) REMOVE LIDODERM PATCH DAILY@21 XX 04/21/19 21:00 04/23/19 20:31 Ondansetron HCl (Zofran) 4 mg Q6HP PRN PO NAUSEA 04/14/19 17:00 04/18/19 10:03 Oxycodone HCl (Roxicodone, Oxyir) 5 mg Q4HP PRN PO PAIN 04/14/19 17:00 04/23/19 09:24 DC 04/23/19 06:05 Oxycodone HCl (Roxicodone, Oxyir) 5 mg TID@0700,1200,1700 PO 04/23/19 12:00 04/24/19 06:36 Pantoprazole Sodium (Protonix) 40 mg BID PO 04/14/19 21:00 04/16/19 09:33 DC 04/16/19 08:17 Pantoprazole Sodium (Protonix) 40 mg DAILY PO 04/22/19 09:00 04/23/19 09:04 Potassium Chloride (Micro-K Extencaps) 20 meq DAILY PO 04/17/19 09:00 04/17/19 10:04 DC Potassium Chloride (Micro-K Extencaps) 20 meq Q48H PO 04/19/19 09:00 04/17/19 10:59 DC Potassium Chloride (Micro-K Extencaps) 40 meq DAILY PO 04/18/19 09:00 04/22/19 10:28 DC 04/22/19 09:36 Potassium Chloride (Micro-K Extencaps) 40 meq Q8H PO 04/17/19 08:00 04/17/19 10:04 DC 04/17/19 09:33 Saliva Substitute (Mouthkote) 2 sprays QID MT 04/15/19 13:00 04/23/19 20:32 Senna (Senokot) 1 tab QHS PO 04/14/19 21:00 04/16/19 21:59 Simvastatin (Zocor) 20 mg DAILY PO 04/15/19 09:00 04/23/19 09:03 Spironolactone (Aldactone) 25 mg QAM PO 04/15/19 09:00 04/23/19 09:01 Sucralfate (Carafate) 1 gm ACHS PO 04/16/19 12:00 04/16/19 11:33 DC Thiamine HCl (Thiamine HCl) 100 mg DAILY PO 04/15/19 09:00 04/23/19 09:04 Tiotropium [place] (Spiriva Handihaler) 1 inhalation DAILY@08 INH 04/15/19 08:00 04/24/19 07:27 Trazodone HCl (Desyrel) 25 mg Q6H PRN PO AGITATION 04/14/19 18:45 Trazodone HCl (Desyrel) 25 mg QHS PO 04/14/19 21:00 04/23/19 20:30 Verapamil HCl (Isoptin-Sr, Calan Sr) 120 mg BID PO 04/15/19 21:00 04/23/19 20:29 CHANDANA BRICEÑO MD Apr 24, 2019 09:27
[2019-04-24] MEDS: SIMVASTATIN 20 MG TAB PO SCH (10:00)
[2019-04-24] MEDS: APIXABAN 5 MG TAB (ELIQUIS) PO SCH ×2 (10:00→20:32)
[2019-04-24] MEDS: FERROUS SULFATE 325MG TAB PO SCH ×2 (10:00→20:33)
[2019-04-24] MEDS: SPIRONOLACTONE 25 MG TAB PO SCH (10:01)
[2019-04-24] MEDS: CALCIUM/VITAMIN D 500 MG TAB PO SCH (10:01)
[2019-04-24] MEDS: guaiFENesin 200 MG TAB PO SCH ×3 (10:02→20:33)
[2019-04-24] MEDS: PANTOPRAZOLE 40MG TAB (PROTONIX) PO SCH (10:02)
[2019-04-24] MEDS: GABAPENTIN 100 MG CAP PO SCH ×2 (10:03→20:33)
[2019-04-24] MEDS: THIAMINE 100 MG TAB PO SCH (10:03)
[2019-04-24] MEDS: AMIODARONE 200 MG TAB (PACERONE) PO SCH (10:04)
[2019-04-24] MEDS: CALCITRIOL 0.25 MCG CAP (S0169) PO SCH (10:04)
[2019-04-24] MEDS: FOLIC ACID 1 MG TAB PO SCH (10:04)
[2019-04-24] MEDS: VERAPAMIL 120 MG SR TAB PO SCH ×2 (10:05→20:35)
[2019-04-24] MEDS: BISACODYL 5 MG TAB PO SCH (10:05)
[2019-04-24] MEDS: DOCUSATE SODIUM 100 MG CAP PO SCH ×2 (10:05→20:32)
[2019-04-24] MEDS: allopurinoL 100 MG TAB PO SCH (10:06)
[2019-04-24] MEDS: METOPROLOL TART 12.5 MG PER 1/2 TAB PO SCH ×2 (10:06→20:35)
[2019-04-24] MEDS: SALIVA SUBSTITUTE(MOUTHKOTE) BTL MT SCH ×4 (10:06→20:37)
[2019-04-24] MEDS: LIDOCAINE 5% (LIDODERM) PATCH TD SCH (10:07)
[2019-04-24] MEDS: FUROSEMIDE 20 MG TAB PO SCH ×2 (10:14→17:08)
[2019-04-24 15:00] VITALS: BP 112/56
[2019-04-24 19:55] VITALS: BP 128/60
[2019-04-24] MEDS: SENNA 8.6 MG TAB (SENOKOT) PO SCH (20:32)
[2019-04-24] MEDS: **NOTE PATIENT COMMENT** MISC XX SCH (20:38)
[2019-04-24] MEDS ORDERED: traZODone 25MG PER 1/2 TABLET PO PRN (21:00)
[2019-04-25 05:00] VITALS: BP 106/58
[2019-04-25] MEDS: oxyCODONE 5MG TAB PO SCH ×3 (06:41→16:52)
[2019-04-25] MEDS: LEVOTHYROXINE 137MCG TABLET (0.137MG) PO SCH (06:41)
[2019-04-25] MEDS: IPRATROPIUM 0.5MG/ALBUTEROL 2.5MG INH SOL UD 3ML (DUONEB)(J7620) NEB SCH ×4 (08:00→20:00)
[2019-04-25] MEDS: TIOTROPIUM INHALER/CAPSULE (SPIRIVA) INH SCH (08:09)
[2019-04-25] MEDS: SYMBICORT 80/4.5MCG INHALER 6GM INH SCH ×2 (08:10→20:16)
[2019-04-25] MEDS: FERROUS SULFATE 325MG TAB PO SCH ×2 (08:59→20:27)
[2019-04-25] MEDS: guaiFENesin 200 MG TAB PO SCH ×3 (08:59→20:28)
[2019-04-25] MEDS: PANTOPRAZOLE 40MG TAB (PROTONIX) PO SCH (08:59)
[2019-04-25] MEDS: FOLIC ACID 1 MG TAB PO SCH (08:59)
[2019-04-25] MEDS: CALCIUM/VITAMIN D 500 MG TAB PO SCH (08:59)
[2019-04-25] MEDS: CALCITRIOL 0.25 MCG CAP (S0169) PO SCH (08:59)
[2019-04-25] MEDS: BISACODYL 5 MG TAB PO SCH (09:00)
[2019-04-25] MEDS: VERAPAMIL 120 MG SR TAB PO SCH ×2 (09:00→20:31)
[2019-04-25] MEDS: allopurinoL 100 MG TAB PO SCH (09:00)
[2019-04-25] MEDS: ACETAMINOPHEN 500 MG TAB PO SCH ×3 (09:00→20:36)
[2019-04-25] MEDS: DOCUSATE SODIUM 100 MG CAP PO SCH ×2 (09:00→20:27)
[2019-04-25] MEDS: FUROSEMIDE 20 MG TAB PO SCH ×2 (09:00→16:52)
[2019-04-25] MEDS: AMIODARONE 200 MG TAB (PACERONE) PO SCH (09:00)
[2019-04-25] MEDS: APIXABAN 5 MG TAB (ELIQUIS) PO SCH ×2 (09:00→20:27)
[2019-04-25] MEDS: THIAMINE 100 MG TAB PO SCH (09:00)
[2019-04-25] MEDS: METOPROLOL TART 12.5 MG PER 1/2 TAB PO SCH ×2 (09:00→20:36)
[2019-04-25] MEDS: SPIRONOLACTONE 25 MG TAB PO SCH (09:00)
[2019-04-25] MEDS: SIMVASTATIN 20 MG TAB PO SCH (09:00)
[2019-04-25] MEDS: GABAPENTIN 100 MG CAP PO SCH ×2 (09:00→20:27)
[2019-04-25] MEDS: SALIVA SUBSTITUTE(MOUTHKOTE) BTL MT SCH ×4 (09:01→21:50)
[2019-04-25] MEDS: LIDOCAINE 5% (LIDODERM) PATCH TD SCH (10:30)
[2019-04-25 14:00] VITALS: BP 113/56
[2019-04-25 19:30] VITALS: BP 113/58
[2019-04-25] MEDS: SENNA 8.6 MG TAB (SENOKOT) PO SCH (20:27)
[2019-04-25] MEDS: **NOTE PATIENT COMMENT** MISC XX SCH (20:33)
[2019-04-26 05:00] VITALS: BP 103/51
[2019-04-26] MEDS: LEVOTHYROXINE 137MCG TABLET (0.137MG) PO SCH (06:31)
[2019-04-26] MEDS: oxyCODONE 5MG TAB PO SCH ×3 (06:32→16:56)
[2019-04-26 06:57] LABS: HEMOGLOBIN 8.6 g/dl (12.0-15.5); MEAN CORPUSCULAR HEMOGLOBIN 28.1 pg (27.0-33.0); MEAN CORPUSCULAR HGB CONC 28.7 g/dl (32.0-36.5); PLATELET COUNT, AUTOMATED 119 10^3/uL (150-450); RED BLOOD COUNT 3.06 10^6/uL (4.00-5.40); WHITE BLOOD COUNT 7.9 10^3/uL (4.0-10.0)
[2019-04-26] MEDS: IPRATROPIUM 0.5MG/ALBUTEROL 2.5MG INH SOL UD 3ML (DUONEB)(J7620) NEB SCH ×4 (07:23→19:28)
[2019-04-26] MEDS: TIOTROPIUM INHALER/CAPSULE (SPIRIVA) INH SCH (07:24)
[2019-04-26] MEDS: SYMBICORT 80/4.5MCG INHALER 6GM INH SCH ×2 (07:24→19:29)
[2019-04-26 07:31] LABS: ALBUMIN 1.9 GM/DL (3.2-5.2); BILIRUBIN,TOTAL 1.3 MG/DL (0.2-1.0); CALCIUM LEVEL 7.6 MG/DL (8.8-10.2); CREATININE FOR GFR 1.5 MG/DL (0.55-1.30); GLOMERULAR FILTRATION RATE 36.1 (>39); POTASSIUM SERUM 4.4 MEQ/L (3.5-5.1); TOTAL PROTEIN 5.1 GM/DL (6.4-8.2)
[2019-04-26 07:33] LABS: ATYPICAL LYMPH 1 % (0-5); BASOPHILS 1 % (0-1); LYMPHOCYTES 21 % (16-44); MONOCYTES 23 % (0-5); NEUTROPHILS 54 % (28-66)
[2019-04-26 07:34] LABS: ANISOCYTOSIS 1+; PLATELET ESTIMATE DECREASED (NORMAL); TOXIC GRANULATION 1+
[2019-04-26] MEDS: guaiFENesin 200 MG TAB PO SCH ×3 (08:14→20:13)
[2019-04-26] MEDS: THIAMINE 100 MG TAB PO SCH (08:14)
[2019-04-26] MEDS: CALCIUM/VITAMIN D 500 MG TAB PO SCH (08:14)
[2019-04-26] MEDS: PANTOPRAZOLE 40MG TAB (PROTONIX) PO SCH (08:14)
[2019-04-26] MEDS: FOLIC ACID 1 MG TAB PO SCH (08:14)
[2019-04-26] MEDS: ACETAMINOPHEN 500 MG TAB PO SCH ×3 (08:18→20:13)
[2019-04-26] MEDS: allopurinoL 100 MG TAB PO SCH (08:18)
[2019-04-26] MEDS: FERROUS SULFATE 325MG TAB PO SCH ×2 (08:18→20:13)
[2019-04-26] MEDS: SIMVASTATIN 20 MG TAB PO SCH (08:18)
[2019-04-26] MEDS: BISACODYL 5 MG TAB PO SCH (08:19)
[2019-04-26] MEDS: VERAPAMIL 120 MG SR TAB PO SCH ×2 (08:19→20:15)
[2019-04-26] MEDS: SPIRONOLACTONE 25 MG TAB PO SCH (08:19)
[2019-04-26] MEDS: DOCUSATE SODIUM 100 MG CAP PO SCH ×2 (08:19→20:14)
[2019-04-26] MEDS: APIXABAN 5 MG TAB (ELIQUIS) PO SCH ×2 (08:19→20:14)
[2019-04-26] MEDS: AMIODARONE 200 MG TAB (PACERONE) PO SCH (08:19)
[2019-04-26] MEDS: FUROSEMIDE 20 MG TAB PO SCH ×2 (08:20→16:55)
[2019-04-26] MEDS: METOPROLOL TART 12.5 MG PER 1/2 TAB PO SCH ×2 (08:20→20:14)
[2019-04-26] MEDS: SALIVA SUBSTITUTE(MOUTHKOTE) BTL MT SCH ×4 (08:20→20:14)
[2019-04-26] MEDS: GABAPENTIN 100 MG CAP PO SCH ×2 (08:24→20:14)
[2019-04-26] MEDS: CALCITRIOL 0.25 MCG CAP (S0169) PO SCH (08:24)
[2019-04-26] MEDS: LIDOCAINE 5% (LIDODERM) PATCH TD SCH (08:24)
--- NOTE | 2019-04-26 11:51 | IPNPDOC ---
Text Note Date of Service The patient was seen on 04/25/19. NOTE Subjective: Patient seen and examined at bedside. No acute overnight events reported. No new medical complaints. Objective: General: NAD, lying comfortably in bed HEENT: NC/AT, EOMI Lungs: bibasilar crackles Heart: +S1S2, RRR Abd: soft, NT, +BS Ext: no edema A/P: 73-year-old female admitted for comminuted left hip fracture and hematoma status post mechanical fall. Patient on Eliquis outpatient, required 4 units of packed red blood cells total for acute anemia, underwent ORIF. Patient significantly dehydrated, continued to have poor oral intake during hospitalization, requiring IV hydration for acute kidney injury. Patient will require rehabilitation prior to going home, being transferred to acute rehabilitation unit. Patient will require further IV hydration until acute kidney injury has resolved and patient has adequate oral intake. Patient is clinically as for transfer to acute rehab ilitation unit for further care. #falls/hip fx - continue with PT/OT as per ARU #CKD - continue monitor renal function - creatinine slowly rising #CHF - grossly euvolemic #chronic UTI - denies polyuria/dysuria #COPD - continue respiratory treatments #DVT prophylaxis Dispo: as per ARU VS,Fishbone, I+O VS, Fishbone, I+O Vital Signs Date Time Temp Pulse Resp B/P (MAP) Pulse Ox O2 Delivery O2 Flow Rate FiO2 04/25/19 12:00 18 04/25/19 09:00 79 109/54 04/25/19 05:00 98.5 94 Room Air I&O- Last 24 Hours up to 6 AM 04/25/19 06:00 Intake Total 900 ml Output Total 650 ml Balance 250 ml FELICIA CUNNINGHAM MD Apr 25, 2019 13:03
--- NOTE | 2019-04-26 11:52 | IPNPDOC ---
Text Note Date of Service The patient was seen on 04/26/19. NOTE Subjective: Patient seen and examined at bedside. No acute overnight events reported. No new medical complaints. Objective: General: NAD, sitting comfortably in chair HEENT: NC/AT, EOMI Lungs: bibasilar crackles Heart: +S1S2, RRR Abd: soft, NT, +BS Ext: no edema A/P: 73-year-old female admitted for comminuted left hip fracture and hematoma status post mechanical fall. Patient on Eliis outpatient, required 4 units of packed red blood cells total for acute anemia, underwent ORIF. Patient significantly dehydrated, continued to have poor oral intake during hospitalization, requiring IV hydration for acute kidney injury. Patient will require rehabilitation prior to going home, being transferred to acute rehabilitation unit. Patient will require further IV hydration until acute kidney injury has resolved and patient has adequate oral intake. Patient is clinically as for transfer to acute rehabilitation unit for further care. #falls/hip fx - continue with PT/OT as per ARU #CKD - continue monitor renal function - creatinine slowly rising #CHF - grossly euvolemic #chronic UTI - denies polyuria/dysuria #COPD - continue respiratory treatments #DVT prophylaxis Dispo: as per ARU VS,Fishbone, I+O VS, Fishbone, I+O Laboratory Tests 04/26/19 06:34 Vital Signs Date Time Temp Pulse Resp B/P (MAP) Pulse Ox O2 Delivery O2 Flow Rate FiO2 04/26/19 08:19 72 124/60 04/26/19 07:15 18 04/26/19 06:32 Room Air 04/26/19 05:00 97.8 96 I&O- Last 24 Hours up to 6 AM 04/26/19 06:00 Intake Total 1380 ml Output Total 200 ml Balance 1180 ml FELICIA CUNNINGHAM MD Apr 26, 2019 11:52
[2019-04-26 14:00] VITALS: BP 98/55
[2019-04-26 20:12] VITALS: BP 100/54
[2019-04-26] MEDS: SENNA 8.6 MG TAB (SENOKOT) PO SCH (20:14)
[2019-04-26] MEDS: **NOTE PATIENT COMMENT** MISC XX SCH (20:16)
[2019-04-27 06:00] VITALS: BP_SYST 115; BP_SYST 123; BP_DIAS 58; BP_DIAS 60
[2019-04-27] MEDS: LEVOTHYROXINE 137MCG TABLET (0.137MG) PO SCH (06:37)
[2019-04-27] MEDS: oxyCODONE 5MG TAB PO SCH ×3 (06:37→16:57)
[2019-04-27] MEDS: TIOTROPIUM INHALER/CAPSULE (SPIRIVA) INH SCH ×2 (08:00→08:55)
[2019-04-27] MEDS: IPRATROPIUM 0.5MG/ALBUTEROL 2.5MG INH SOL UD 3ML (DUONEB)(J7620) NEB SCH ×4 (08:00→20:00)
[2019-04-27] MEDS: SYMBICORT 80/4.5MCG INHALER 6GM INH SCH ×3 (08:58→20:59)
[2019-04-27] MEDS: ANALGESIC BALM CRM 120 GM TOP SCH ×3 (09:00→20:51)
[2019-04-27] MEDS ORDERED: FUROSEMIDE 20 MG TAB PO SCH (09:00)
[2019-04-27] MEDS: BISACODYL 5 MG TAB PO SCH (09:00)
[2019-04-27] MEDS: DOCUSATE SODIUM 100 MG CAP PO SCH ×2 (09:00→20:39)
[2019-04-27] MEDS: FOLIC ACID 1 MG TAB PO SCH (09:03)
[2019-04-27] MEDS: GABAPENTIN 100 MG CAP PO SCH ×2 (09:04→20:50)
[2019-04-27] MEDS: FERROUS SULFATE 325MG TAB PO SCH ×2 (09:04→20:51)
[2019-04-27] MEDS: CALCITRIOL 0.25 MCG CAP (S0169) PO SCH (09:04)
[2019-04-27] MEDS: VERAPAMIL 120 MG SR TAB PO SCH ×2 (09:04→20:38)
[2019-04-27] MEDS: THIAMINE 100 MG TAB PO SCH (09:04)
[2019-04-27] MEDS: guaiFENesin 200 MG TAB PO SCH ×3 (09:04→20:51)
[2019-04-27] MEDS: SIMVASTATIN 20 MG TAB PO SCH (09:04)
[2019-04-27] MEDS: PANTOPRAZOLE 40MG TAB (PROTONIX) PO SCH (09:04)
[2019-04-27] MEDS: allopurinoL 100 MG TAB PO SCH (09:04)
[2019-04-27] MEDS: CALCIUM/VITAMIN D 500 MG TAB PO SCH (09:04)
[2019-04-27] MEDS: APIXABAN 5 MG TAB (ELIQUIS) PO SCH ×2 (09:04→20:51)
[2019-04-27] MEDS: AMIODARONE 200 MG TAB (PACERONE) PO SCH (09:04)
[2019-04-27] MEDS: ACETAMINOPHEN 500 MG TAB PO SCH ×3 (09:05→20:50)
[2019-04-27] MEDS: SPIRONOLACTONE 25 MG TAB PO SCH (09:05)
[2019-04-27] MEDS: LIDOCAINE 5% (LIDODERM) PATCH TD SCH (09:05)
[2019-04-27] MEDS: METOPROLOL TART 12.5 MG PER 1/2 TAB PO SCH ×2 (09:05→20:38)
[2019-04-27] MEDS: SALIVA SUBSTITUTE(MOUTHKOTE) BTL MT SCH ×4 (09:06→20:51)
--- NOTE | 2019-04-27 09:23 | IPNPDOC ---
PM&R Progress Note DATE OF SERVICE: Apr 27, 2019 [facility] Progress Note Subjective: Patient seen in her room stating her low back is still hurting that it's an ache that shoots across her low back, but not down her leg. She was helped out of bed and walked to the toilet with improved mobility and less pain after a few phyllis maria a. Patient seen this morning REVIEW OF SYSTEMS: The following is a completed review of systems and has been reviewed. Review of systems otherwise unremarkable. PAIN: Patient self reports no pain at rest EYES: No recent vision changes EARS, NOSE, & THROAT: denies throat pain, (-) dysphagia, or rhinorrhea CARDIOVASCULAR: Denies chest pain or palpitations PULMONARY:denies shortness of breath GASTROINTESTINAL: Denies constipation/diarrhea GENITOURINARY: denies dysuria MUSCULOSKELETAL: left hip fracture NEUROLOGICAL:no tremor or seizure activity HEMATOLOGICAL: +easy bruising SKIN: +left hip incision and scattered ecchymosis PSYCHIATRIC: +confused (resolved) All other review of systems found to be negative. PHYSICAL EXAMINATION: VITAL SIGNS: Please see below. GENERAL: Pleasant and cooperative. No acute distress. HEENT: PERRL. Extraocular movements intact. Clear conjunctiva CARDIOVASCULAR: Irregular rate and rhythm. No murmurs, rubs, or gallops LUNGS: +CTA throughout, no cracklse or wheeze ABDOMEN: Soft, nontender, mildly distended. Positive bowel sounds. Normal active bowel sounds NEUROLOGICAL: Alert and oriented x3, appeared confused, but able to follow commands Cranial nerves II through XII grossly intact. Sensation grossly intact including 1st web space on left EXTREMITIES: 5-\5 strength bilateral upper extremities. 4\5 strength right lower extremity. 4/5 strength in left ankle DF, EHL, and PF (limited due to surgery) +LLE edema and RLE edema (improved) (-) Homans (+) TTP bilat loer lumbar paraspinals SKIN: left hip and groin with ecchymosis, scattered ecchymosis bilat UE, left hip incision with edema and ecchymosis and scant serosanguineous drainage (improving) ASSESSMENT:73-year-old F with past medical history of Afib who presents status post fall with left hip fracture PLAN: 1. Rehab- PT- WBAT to LLE, advance agit training, strengthen bilat LE, maintain ROM and stretch- ambulating with RW OT- advance ADLs, scapular stabilization exercises [employer] for hx of esophageal strictures and cog eval 2. Ortho: s/p left hip ORIF, ortho consulted 3. Neuro: patient with delirium and agitation-resolved 4. Cardiac: hx of Afib c/u eliquis, amiodarone, metoprolol, c/u verapamil- medicine consulted to assist in management -recent ECHO showing grade 1 diastolic CHF -acute CHF exacerbation which has resolved, s/p multi-day course of IV lasix, breathing and edema improved, c/u lasix decreased to 40 daily to avoid FREDY and monitor -c/u spironolactone 25mg daily-c/u to monitor -c/u 1500cc fluid restrict and no salt diet- medicine recs appreciated -daily weight ordered 5. Resp: Hx of COPD, c/u Duonebs standing, monitor for infection -encourage incentive spirometry -c/u Symbicort 6. Renal: FREDY on CKD-stable- patient's hypocalcemia is normal when corrected in setting of low albumin -c/u calcitriol home dose 7. Heme: patient with significant post-op anemia s/p 4 units rbcs on inpatient with large left groin hematoma improving, FOBT negative -patient with hx of thrombocytopenia-stable c/u to monitor while on protonix -no drainage from surgical incision 8. DVT ppx: c/u Eliquis 5 BID for afib -Doppler negative for proximal LLE DVT 9. Pain: Tylenol, oxycodone (changed to standing), c/u gabapentin 200mg BID, will add menthol salicylate rub for low back pain 10. GI px: will restart protonix as patient reports this helps with her dyspepsia and monitor platelets-stable 11. : hx of recurrent UTIs on macrobid ppx, however given Trial Manager function switched to fosfomycin 3g q7days as off-label prophylactic dosing -no dysuria reported, leukocytosis resolved 10. Dispo: progress beginning to plateau due to back pain, will defer d/c until family training to assess family comfort taking her home Allergies Coded Allergies: tetracycline (Verified Allergy, Severe, swelling, peeling of the tongue, 02/19/19) zolpidem (Verified Allergy, Severe, respiratory distress, 02/19/19) Sulfa (Sulfonamide Antibiotics) (Verified Allergy, Intermediate, hives, 02/19/19) Penicillins (Verified Adverse Reaction, Intermediate, N/V, 02/19/19) tramadol (Verified Adverse Reaction, Intermediate, N/V, 02/19/19) Vital Signs Vital Signs Date Time Temp Pulse Resp B/P (MAP) Pulse Ox O2 Delivery O2 Flow Rate FiO2 04/27/19 09:05 77 123/60 04/27/19 07:07 16 04/27/19 06:00 98.7 94 Room Air Microbiology Microbiology 04/19/19 Stool Occult Blood (MARIA LUISA) - Final, Complete Current Medications Current Medications Current Medications Medications (Trade) Dose Ordered Sig/Ady Route PRN Reason Start Time Stop Time Status Last Admin Dose Admin Acetaminophen (Tylenol Tab) 1,000 mg TID PO 04/14/19 21:00 04/27/19 09:05 Albuterol/ Ipratropium (Duoneb (Ipr 0.5mg/Alb 2.5mg)) 3 ml RQID NEB 04/14/19 20:00 04/26/19 15:44 Allopurinol (Zyloprim) 100 mg DAILY PO 04/15/19 09:00 04/27/19 09:04 Amiodarone HCl (Pacerone, Cordarone) 200 mg DAILY PO 04/15/19 09:00 04/27/19 09:04 Apixaban (Eliquis) 5 mg BID PO 04/14/19 21:00 04/27/19 09:04 Bisacodyl (Dulcolax Tab) 5 mg DAILY PO 04/16/19 09:00 04/18/19 09:46 Bisacodyl (Dulcolax Tab) 5 mg DAILYPRN PRN PO CONSTIPATION 04/14/19 17:00 Budesonide/ Formoterol Fumarate (Symbicort 80/ 4.5mcg) 2 puff BID INH 04/14/19 21:00 04/26/19 19:29 Calcitriol (Rocaltrol) 0.5 mcg BID PO 04/23/19 09:00 04/23/19 11:05 DC 04/23/19 09:01 Calcitriol (Rocaltrol) 0.5 mcg DAILY PO 04/24/19 09:00 04/27/19 09:04 Calcitriol (Rocaltrol) 0.5 mcg DAILY PO 04/15/19 09:00 04/23/19 07:44 DC 04/22/19 09:36 Calcium Carbonate (Tums) 500 mg BID PRN PO INDIGESTION 04/18/19 14:45 04/23/19 09:26 DC 04/18/19 18:08 Calcium/Vitamin D (Oscal D) 1,000 mg DAILY PO 04/21/19 09:00 04/23/19 07:44 DC 04/22/19 09:36 Calcium/Vitamin D (Oscal D) 1,000 mg DAILY PO 04/24/19 09:00 04/27/19 09:04 Calcium/Vitamin D (Oscal D) 2,000 mg DAILY PO 04/23/19 09:00 04/23/19 11:05 DC 04/23/19 09:02 Docusate Sodium (Colace) 100 mg BID PO 04/14/19 21:00 04/26/19 20:14 Ferrous Gluconate (Fergon) 324 mg BID PO 04/14/19 21:00 04/14/19 18:57 DC Ferrous Sulfate (Ferrous Sulfate) 325 mg BID PO 04/14/19 21:00 04/27/19 09:04 Folic Acid (Folic Acid) 1 mg DAILY PO 04/15/19 09:00 04/27/19 09:03 Fosfomycin Tromethamine (Monurol) 3 gm Q7D PO 04/15/19 21:00 04/22/19 20:55 Furosemide (LASIX injection) 20 mg BID@17 IV 04/15/19 17:00 04/21/19 19:00 DC 04/21/19 17:36 Furosemide (Lasix) 20 mg BID@ PO 04/22/19 09:00 04/24/19 09:20 DC 04/23/19 16:48 Furosemide (Lasix) 40 mg BID@ PO 04/24/19 09:00 04/27/19 07:40 DC 04/26/19 16:55 Furosemide (Lasix) 40 mg DAILY PO 04/27/19 09:00 Gabapentin (Neurontin) 100 mg BID PO 04/23/19 09:00 04/24/19 09:25 DC 04/23/19 20:31 Gabapentin (Neurontin) 200 mg BID PO 04/24/19 09:00 04/27/19 09:04 Guaifenesin (Robitussin Tab) 400 mg TID PO 04/17/19 16:00 04/27/19 09:04 Levalbuterol HCl (Xopenex Neb) 1.25 mg Q6HP PRN INH SOB/WHEEZING 04/14/19 17:00 04/23/19 09:26 DC 04/14/19 22:31 Levothyroxine Sodium (Synthroid) 137 mcg DAILY@06 PO 04/15/19 06:00 04/27/19 06:37 Lidocaine (Lidoderm Patch) 1 patch DAILY TD 04/21/19 09:00 04/27/19 09:05 Magnesium Hydroxide (Milk Of Magnesia) 30 ml DAILYPRN PRN PO CONSTIPATION 04/14/19 17:00 04/16/19 10:14 Metoprolol Tartrate (Lopressor) 12.5 mg BID PO 04/14/19 21:00 04/15/19 12:36 DC 04/15/19 09:51 Metoprolol Tartrate (Lopressor) 12.5 mg BID PO 04/15/19 21:00 04/27/19 09:05 Miscellaneous (Unresolved Clarification Entry) SEE LABEL COMMENTS DAILY XX 04/27/19 09:00 04/27/19 08:33 DC Miscellaneous (Unresolved Clarification Entry) SEE LABEL COMMENTS DAILY XX 04/14/19 09:00 04/15/19 12:43 DC Miscellaneous (Unresolved Clarification Entry) SEE LABEL COMMENTS DAILY XX 04/20/19 09:00 04/21/19 08:39 DC Nitrofurantoin Monoh/Nitrofur Macro (Macrobid) 100 mg DAILY PO 04/15/19 09:00 04/15/19 11:03 DC Non-Formulary Medication ( See Comment Field Below ) REMOVE LIDODERM PATCH DAILY@21 XX 04/21/19 21:00 04/26/19 20:16 Ondansetron HCl (Zofran) 4 mg Q6HP PRN PO NAUSEA 04/14/19 17:00 04/18/19 10:03 Oxycodone HCl (Roxicodone, Oxyir) 5 mg Q4HP PRN PO PAIN 04/14/19 17:00 04/23/19 09:24 DC 04/23/19 06:05 Oxycodone HCl (Roxicodone, Oxyir) 5 mg TID@0700,1200,1700 PO 04/23/19 12:00 04/27/19 06:37 Pantoprazole Sodium (Protonix) 40 mg BID PO 04/14/19 21:00 04/16/19 09:33 DC 04/16/19 08:17 Pantoprazole Sodium (Protonix) 40 mg DAILY PO 04/22/19 09:00 04/27/19 09:04 Potassium Chloride (Micro-K Extencaps) 20 meq DAILY PO 04/17/19 09:00 04/17/19 10:04 DC Potassium Chloride (Micro-K Extencaps) 20 meq Q48H PO 04/19/19 09:00 04/17/19 10:59 DC Potassium Chloride (Micro-K Extencaps) 40 meq DAILY PO 04/18/19 09:00 04/22/19 10:28 DC 04/22/19 09:36 Potassium Chloride (Micro-K Extencaps) 40 meq Q8H PO 04/17/19 08:00 04/17/19 10:04 DC 04/17/19 09:33 Saliva Substitute (Mouthkote) 2 sprays QID MT 04/15/19 13:00 04/27/19 09:06 Senna (Senokot) 1 tab QHS PO 04/14/19 21:00 04/26/19 20:14 Simvastatin (Zocor) 20 mg DAILY PO 04/15/19 09:00 04/27/19 09:04 Spironolactone (Aldactone) 25 mg QAM PO 04/15/19 09:00 04/27/19 09:05 Sucralfate (Carafate) 1 gm ACHS PO 04/16/19 12:00 04/16/19 11:33 DC Thiamine HCl (Thiamine HCl) 100 mg DAILY PO 04/15/19 09:00 04/27/19 09:04 Tiotropium [place] (Spiriva Handihaler) 1 inhalation DAILY@08 INH 04/15/19 08:00 04/26/19 07:24 Trazodone HCl (Desyrel) 25 mg Q6H PRN PO AGITATION 04/14/19 18:45 04/24/19 11:17 DC Trazodone HCl (Desyrel) 25 mg QHS PO 04/14/19 21:00 04/24/19 11:17 DC 04/23/19 20:30 Trazodone HCl (Desyrel) 25 mg QHS PRN PO INSOMNIA 04/24/19 21:00 04/24/19 20:35 Verapamil HCl (Isoptin-Sr, Calan Sr) 120 mg BID PO 04/15/19 21:00 04/27/19 09:04 CHANDANA BRICEÑO MD Apr 27, 2019 09:23
[2019-04-27 14:00] VITALS: BP 96/50
--- NOTE | 2019-04-27 16:13 | IPNPDOC ---
Subjective Date Seen The patient was seen on 04/27/19. Subjective Chief Complaint/HPI Ms Fernandez is a 73 year old female admitted to the ARU with a L comminuted fracture of the left hip after she slipped and fell on ice (04-10-19). Patient stated she is doing well today. She continues to have some on-radiating, aching lower back pain for which the Lidocaine patch has been poorly effective. She has very little tenderness over the L leg; wondered when her jaquan would be removed. She had PT this morning which was no trouble for her at all. Per PT: pedal edema has improved significantly over the weekend. Constitutional: Denies: Chills, Fever, Night Sweats Eyes: Denies: Pain ENT: Denies: Head Aches Skin: Denies: Rash Pulmonary: Denies: Dyspnea, Cough Cardiovascular: Denies: Chest Pain, Palpitations, Lt Headedness Gastrointestinal: Denies: Abdominal Pain Genitourinary: Denies: Dysuria, Frequency Musculoskeletal: Reports: Back Pain (see HPI) Neurological: Reports: Weakness, Confusion Psych: Reports: Mood Normal Objective Physical Examination General Exam: Positive: Alert, Cooperative, No Acute Distress Eye Exam: Positive: Conjunctiva & lids normal, Sclera icteric ENT Exam: Positive: Atraumatic, Mucous membr. moist/pink, Other ENT (Pharynx inflamed with white patches ) Chest Exam: Positive: Wheezing (generalized ) Heart Exam: Positive: Rate Normal, Regular Rhythm, Normal S1, Normal S2; Negative: Murmurs, Rubs Abdomen Exam: Positive: Soft, Other (Large, rounded ); Negative: Tenderness Extremity Exam: Positive: Edema (1+ pedal edema bilaterally ) Skin Exam: Positive: Other skin issue (Bruising along both arms ) Neuro Exam: Positive: Normal Speech Psych Exam: Positive: Mental status NL, Mood NL Assessment /Plan Assessment Ms Fernandez is a 73 year old female admitted to the ARU with a L comminuted fracture of the left hip and hematoma after she slipped and fell on ice (04-10-19). Ms. Fernandez's outpatient medications include Eliquis 5mg BID. Patient required 5 units of PRBCs for acute anemia and underwent and ORIF. Patient became dehydrated due to poor oral intake and suffered an FREDY, requiring IVF for hydration. Since being in rehab, Ms. Fernandez further developed LLE 2+ pitting edema. Dr. Tay ordered a venous USG of the extremity. Results: No DVT. Pedal edema improved with PT. Dr. Tay became concerned with low platelets and MDS in the patient. Dr. Frederick consulted with her and advised that medical will monitor her platelet levels at this time; should her plt count fall below 40, the patient will be reassessed and a treatment plan formulated. Ms Fernandez has a PMHx which includes: CKD, CHF, COPD, Pedal edema, Dyspnea and chronic UTIs. 1) Congestive heart failure - vitals stable - continue home medications (2) Pedal edema - no DVT per venous USG - pedal edema improved (3) Dyspnea - pt denied dyspnea and coughing today - continue Duoneb and Symbicort, Spiriva (4) COPD (chronic obstructive pulmonary disease) - Patient will continue home medications. (5) Hip fracture, left - continue rehab per ARU (5) FREDY - fluid intake very poor today. ?secondary dehydration - monitor Cr levels daily. encourage increased PO fluid intake. - consider IVF replacement prn Plan/VTE VTE Prophylaxis Ordered?: Yes (Patient currently takes Eliquis 5mg tab twice per day) Plan/VTE VTE Prophylaxis Ordered?: Yes (Patient currently takes Eliquis 5mg tab twice per day) Plan Diet: Continue Current Activity: Continue Current VS, I&O, 24H, Fishbone Vital Signs/I&O Vital Signs Date Time Temp Pulse Resp B/P (MAP) Pulse Ox O2 Delivery O2 Flow Rate FiO2 04/27/19 14:00 99.0 74 18 96/50 (65) 93 Room Air I&O- Last 24 Hours up to 6 AM 04/27/19 06:00 Intake Total 1460 ml Output Total 600 ml Balance 860 ml Laboratory Data Microbiology Microbiology 04/19/19 Stool Occult Blood (MARIA LUISA) - Final, Complete ROSALBA QUEEN PA-C Apr 27, 2019 16:13
[2019-04-27 20:00] VITALS: BP 107/57
[2019-04-27] MEDS: SENNA 8.6 MG TAB (SENOKOT) PO SCH (20:39)
[2019-04-27] MEDS: **NOTE PATIENT COMMENT** MISC XX SCH (20:51)
[2019-04-28] VITALS (7 sets, daily range): BP systolic 86–132; BP diastolic 50–67
[2019-04-28] MEDS ORDERED: CALCIUM CARBONATE 500 MG CHEW U/D PO ONE
[2019-04-28] MEDS: LEVOTHYROXINE 137MCG TABLET (0.137MG) PO SCH (06:12)
[2019-04-28] MEDS: oxyCODONE 5MG TAB PO SCH ×3 (06:13→17:36)
[2019-04-28] MEDS: TIOTROPIUM INHALER/CAPSULE (SPIRIVA) INH SCH (07:30)
[2019-04-28] MEDS: IPRATROPIUM 0.5MG/ALBUTEROL 2.5MG INH SOL UD 3ML (DUONEB)(J7620) NEB SCH ×4 (07:30→20:00)
[2019-04-28] MEDS: SYMBICORT 80/4.5MCG INHALER 6GM INH SCH ×2 (07:50→20:37)
[2019-04-28 07:51] LABS: CALCIUM LEVEL 7.3 MG/DL (8.8-10.2); CREATININE FOR GFR 1.85 MG/DL (0.55-1.30); GLOMERULAR FILTRATION RATE 28.4 (>39); POTASSIUM SERUM 4.1 MEQ/L (3.5-5.1)
[2019-04-28] MEDS: PANTOPRAZOLE 40MG TAB (PROTONIX) PO SCH (08:14)
[2019-04-28] MEDS: ACETAMINOPHEN 500 MG TAB PO SCH ×3 (08:15→20:21)
[2019-04-28] MEDS: AMIODARONE 200 MG TAB (PACERONE) PO SCH (08:15)
[2019-04-28] MEDS: CALCITRIOL 0.25 MCG CAP (S0169) PO SCH (08:17)
[2019-04-28] MEDS: METOPROLOL TART 12.5 MG PER 1/2 TAB PO SCH ×2 (08:17→20:23)
[2019-04-28] MEDS: SPIRONOLACTONE 25 MG TAB PO SCH (08:18)
[2019-04-28] MEDS: APIXABAN 5 MG TAB (ELIQUIS) PO SCH ×2 (08:18→20:22)
[2019-04-28] MEDS: SIMVASTATIN 20 MG TAB PO SCH (08:18)
[2019-04-28] MEDS: FOLIC ACID 1 MG TAB PO SCH (08:18)
[2019-04-28] MEDS: THIAMINE 100 MG TAB PO SCH (08:18)
[2019-04-28] MEDS: allopurinoL 100 MG TAB PO SCH (08:18)
[2019-04-28] MEDS: FERROUS SULFATE 325MG TAB PO SCH ×2 (08:18→20:22)
[2019-04-28] MEDS: DOCUSATE SODIUM 100 MG CAP PO SCH ×2 (08:18→20:22)
[2019-04-28] MEDS: guaiFENesin 200 MG TAB PO SCH ×3 (08:19→20:23)
[2019-04-28] MEDS: GABAPENTIN 100 MG CAP PO SCH (08:19)
[2019-04-28] MEDS: VERAPAMIL 120 MG SR TAB PO SCH ×2 (08:20→20:22)
[2019-04-28] MEDS: ANALGESIC BALM CRM 120 GM TOP SCH ×3 (08:20→20:24)
[2019-04-28] MEDS: CALCIUM/VITAMIN D 500 MG TAB PO SCH (08:20)
[2019-04-28] MEDS: LIDOCAINE 5% (LIDODERM) PATCH TD SCH (08:20)
[2019-04-28] MEDS: BISACODYL 5 MG TAB PO SCH (08:21)
[2019-04-28] MEDS: SALIVA SUBSTITUTE(MOUTHKOTE) BTL MT SCH ×4 (08:21→20:22)
[2019-04-28] MEDS: ONDANSETRON 4 MG TAB (S0181) PO PRN (09:32)
[2019-04-28] MEDS ORDERED: NS 500 ML IV ONE (11:00)
[2019-04-28 11:09] LABS: URIC ACID 9.8 MG/DL (2.6-6.0)
--- NOTE | 2019-04-28 11:29 | IPNPDOC ---
PM&R Progress Note DATE OF SERVICE: Apr 28, 2019 Vender Progress Note Subjective: Patient reporting she feels nauseous today, denies diarrhea or constipation. She denies worsening breathing, but has right sided sternal pain worse with with inhalations which began yesterday when she caught herself from falling on the walker. Patient seen this morning REVIEW OF SYSTEMS: The following is a completed review of systems and has been reviewed. Review of systems otherwise unremarkable. PAIN: Patient self reports no pain at rest EYES: No recent vision changes EARS, NOSE, & THROAT: denies throat pain, (-) dysphagia, or rhinorrhea CARDIOVASCULAR: Denies chest pain or palpitations, +right sided sternal pain PULMONARY:denies shortness of breath GASTROINTESTINAL: Denies constipation/diarrhea GENITOURINARY: denies dysuria MUSCULOSKELETAL: left hip fracture NEUROLOGICAL:no tremor or seizure activity HEMATOLOGICAL: +easy bruising SKIN: +left hip incision and scattered ecchymosis PSYCHIATRIC: +confused (resolved) All other review of systems found to be negative. PHYSICAL EXAMINATION: VITAL SIGNS: Please see below. GENERAL: Pleasant and cooperative. No acute distress. HEENT: PERRL. Extraocular movements intact. Clear conjunctiva CARDIOVASCULAR: Irregular rate and rhythm. No murmurs, rubs, or gallops LUNGS: +CTA throughout, no crackles or wheeze ABDOMEN: Soft, nontender, mildly distended. Positive bowel sounds. Normal active bowel sounds NEUROLOGICAL: Alert and oriented x3, appeared confused, but able to follow commands Cranial nerves II through XII grossly intact. Sensation grossly intact including 1st web space on left EXTREMITIES: 5-\5 strength bilateral upper extremities. 4\5 strength right lower extremity. 4/5 strength in left ankle DF, EHL, and PF (limited due to surgery) +LLE edema and RLE edema (worse today) (-) Homans (+) TTP bilat lower lumbar paraspinals (+) TTP right sternum SKIN: left hip and groin with ecchymosis, scattered ecchymosis bilat UE, left hip incision with edema and ecchymosis and scant serosanguineous drainage (improving) ASSESSMENT:73-year-old F with past medical history of Afib who presents status post fall with left hip fracture PLAN: 1. 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 Ortho: s/p left hip ORIF, ortho consulted 3. Neuro: patient with delirium and agitation-resolved 4. Cardiac: hx of Afib c/u eliquis, amiodarone, metoprolol, c/u verapamil- medicine consulted to assist in management -recent ECHO showing grade 1 diastolic CHF -acute CHF exacerbation which has resolved, s/p multi-day course of IV lasix, deferring to renal for fluid management, consult placed today -c/u spironolactone 25mg daily-c/u to monitor -c/u 1500cc fluid restrict and no salt diet- medicine recs appreciated -daily weight ordered 5. Resp: Hx of COPD, c/u Duonebs standing, monitor for infection -encourage incentive spirometry -c/u Symbicort -resp panel negative 6. Renal: FREDY on CKD worsening today- has been on oral lasix for several days, lowered to 40 daily yesterday in setting of FREDY, renal consulted today to assist with fluid management as patient with worsening FREDY and increased peripheral edema- fluid management per renal, adding BNP to today's labs -c/u calcitriol home dose 7. Heme: patient with significant post-op anemia s/p 4 units rbcs on inpatient with large left groin hematoma improving, FOBT negative -patient with hx of thrombocytopenia-stable c/u to monitor while on protonix -no drainage from surgical incision 8. DVT ppx: c/u Eliquis 5 BID for afib -Doppler negative for proximal LLE DVT 9. Pain: Tylenol, decrease oxycodone dosing to 2.5 standing and will d/c gabapentin as may be contributing to overall lethargy, c/u menthol salicylate rub for low back pain and to sternum for costochondritis 10. GI px: will restart protonix as patient reports this helps with her dyspepsia and monitor platelets-stable 11. 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 Dispo: progress beginning to plateau due to back pain, will defer d/c until family training to assess family comfort taking her home Allergies Coded Allergies: tetracycline (Verified Allergy, Severe, swelling, peeling of the tongue, 02/19/19) zolpidem (Verified Allergy, Severe, respiratory distress, 02/19/19) Sulfa (Sulfonamide Antibiotics) (Verified Allergy, Intermediate, hives, 02/19/19) Penicillins (Verified Adverse Reaction, Intermediate, N/V, 02/19/19) tramadol (Verified Adverse Reaction, Intermediate, N/V, 02/19/19) Vital Signs Vital Signs Date Time Temp Pulse Resp B/P (MAP) Pulse Ox O2 Delivery O2 Flow Rate FiO2 04/28/19 10:50 89/54 (66) 99 04/28/19 10:35 98.0 97 20 Room Air Laboratory Data CBC/BMP Laboratory Tests 04/28/19 06:45 Labs 24H Laboratory Tests 2 04/28/19 06:45: Anion Gap 8, Glomerular Filtration Rate 28.4L, Uric Acid 9.8H, Calcium Level 7.3L Microbiology Microbiology 04/28/19 Respiratory Virus Panel (PCR) (MARIA LUISA) - Final, Complete 04/19/19 Stool Occult Blood (MARIA LUISA) - Final, Complete Current Medications Current Medications Current Medications Medications (Trade) Dose Ordered Sig/Ady Route PRN Reason Start Time Stop Time Status Last Admin Dose Admin Acetaminophen (Tylenol Tab) 1,000 mg TID PO 04/14/19 21:00 04/28/19 08:15 Albuterol/ Ipratropium (Duoneb (Ipr 0.5mg/Alb 2.5mg)) 3 ml RQID NEB 04/14/19 20:00 04/27/19 16:45 Allopurinol (Zyloprim) 100 mg DAILY PO 04/15/19 09:00 04/28/19 08:18 Amiodarone HCl (Pacerone, Cordarone) 200 mg DAILY PO 04/15/19 09:00 04/28/19 08:15 Apixaban (Eliquis) 5 mg BID PO 04/14/19 21:00 04/28/19 08:18 Bisacodyl (Dulcolax Tab) 5 mg DAILY PO 04/16/19 09:00 04/18/19 09:46 Bisacodyl (Dulcolax Tab) 5 mg DAILYPRN PRN PO CONSTIPATION 04/14/19 17:00 Budesonide/ Formoterol Fumarate (Symbicort 80/ 4.5mcg) 2 puff BID INH 04/14/19 21:00 04/28/19 07:50 Calcitriol (Rocaltrol) 0.5 mcg BID PO 04/23/19 09:00 04/23/19 11:05 DC 04/23/19 09:01 Calcitriol (Rocaltrol) 0.5 mcg DAILY PO 04/24/19 09:00 04/28/19 08:17 Calcitriol (Rocaltrol) 0.5 mcg DAILY PO 04/15/19 09:00 04/23/19 07:44 DC 04/22/19 09:36 Calcium Carbonate (Tums) 500 mg BID PRN PO INDIGESTION 04/18/19 14:45 04/23/19 09:26 DC 04/18/19 18:08 Calcium/Vitamin D (Oscal D) 1,000 mg DAILY PO 04/21/19 09:00 04/23/19 07:44 DC 04/22/19 09:36 Calcium/Vitamin D (Oscal D) 1,000 mg DAILY PO 04/24/19 09:00 04/28/19 09:07 DC 04/28/19 08:20 Calcium/Vitamin D (Oscal D) 2,000 mg DAILY PO 04/23/19 09:00 04/23/19 11:05 DC 04/23/19 09:02 Docusate Sodium (Colace) 100 mg BID PO 04/14/19 21:00 04/28/19 08:18 Ferrous Gluconate (Fergon) 324 mg BID PO 04/14/19 21:00 04/14/19 18:57 VT Ferrous Sulfate (Ferrous Sulfate) 325 mg BID PO 04/14/19 21:00 04/28/19 08:18 Folic Acid (Folic Acid) 1 mg DAILY PO 04/15/19 09:00 04/28/19 08:18 Fosfomycin Tromethamine (Monurol) 3 gm Q7D PO 04/15/19 21:00 04/22/19 20:55 Furosemide (LASIX injection) 20 mg BID@,17 IV 04/15/19 17:00 04/21/19 19:00 DC 04/21/19 17:36 Furosemide (Lasix) 20 mg BID@, PO 04/22/19 09:00 04/24/19 09:20 DC 04/23/19 16:48 Furosemide (Lasix) 40 mg BID@, PO 04/24/19 09:00 04/27/19 07:40 DC 04/26/19 16:55 Furosemide (Lasix) 40 mg DAILY PO 04/27/19 09:00 04/28/19 07:56 DC 04/27/19 11:25 Gabapentin (Neurontin) 100 mg BID PO 04/23/19 09:00 04/24/19 09:25 DC 04/23/19 20:31 Gabapentin (Neurontin) 200 mg BID PO 04/24/19 09:00 04/28/19 09:07 DC 04/28/19 08:19 Guaifenesin (Robitussin Tab) 400 mg TID PO 04/17/19 16:00 04/28/19 08:19 Levalbuterol HCl (Xopenex Neb) 1.25 mg Q6HP PRN INH SOB/WHEEZING 04/14/19 17:00 04/23/19 09:26 DC 04/14/19 22:31 Levothyroxine Sodium (Synthroid) 137 mcg DAILY@06 PO 04/15/19 06:00 04/28/19 06:12 Lidocaine (Lidoderm Patch) 1 patch DAILY TD 04/21/19 09:00 04/28/19 08:20 Magnesium Hydroxide (Milk Of Magnesia) 30 ml DAILYPRN PRN PO CONSTIPATION 04/14/19 17:00 04/16/19 10:14 Menthol/Methyl Salicylate (Bengay Cream) 1 dose TID TOP 04/27/19 09:00 04/28/19 08:20 Metoprolol Tartrate (Lopressor) 12.5 mg BID PO 04/14/19 21:00 04/15/19 12:36 DC 04/15/19 09:51 Metoprolol Tartrate (Lopressor) 12.5 mg BID PO 04/15/19 21:00 04/27/19 09:05 Miscellaneous (Unresolved Clarification Entry) SEE LABEL COMMENTS DAILY XX 04/27/19 09:00 04/27/19 08:33 DC Miscellaneous (Unresolved Clarification Entry) SEE LABEL COMMENTS DAILY XX 04/14/19 09:00 04/15/19 12:43 DC Miscellaneous (Unresolved Clarification Entry) SEE LABEL COMMENTS DAILY XX 04/20/19 09:00 04/21/19 08:39 DC Nitrofurantoin Monoh/Nitrofur Macro (Macrobid) 100 mg DAILY PO 04/15/19 09:00 04/15/19 11:03 DC Non-Formulary Medication ( See Comment Field Below ) REMOVE LIDODERM PATCH DAILY@21 XX 04/21/19 21:00 04/27/19 20:51 Ondansetron HCl (Zofran) 4 mg Q6HP PRN PO NAUSEA 04/14/19 17:00 04/28/19 09:32 Oxycodone HCl (Roxicodone, Oxyir) 2.5 mg TID@0700,1200,1700 PO 04/28/19 12:00 Oxycodone HCl (Roxicodone, Oxyir) 5 mg Q4HP PRN PO PAIN 04/14/19 17:00 04/23/19 09:24 DC 04/23/19 06:05 Oxycodone HCl (Roxicodone, Oxyir) 5 mg TID@0700,1200,1700 PO 04/23/19 12:00 04/28/19 09:07 DC 04/28/19 06:13 Pantoprazole Sodium (Protonix) 40 mg BID PO 04/14/19 21:00 04/16/19 09:33 DC 04/16/19 08:17 Pantoprazole Sodium (Protonix) 40 mg DAILY PO 04/22/19 09:00 04/28/19 08:14 Potassium Chloride/Sodium Chloride 1,000 ml @ 80 mls/hr [id number] IV 04/28/19 12:00 04/29/19 00:29 Potassium Chloride (Micro-K Extencaps) 20 meq DAILY PO 04/17/19 09:00 04/17/19 10:04 DC Potassium Chloride (Micro-K Extencaps) 20 meq Q48H PO 04/19/19 09:00 04/17/19 10:59 DC Potassium Chloride (Micro-K Extencaps) 40 meq DAILY PO 04/18/19 09:00 04/22/19 10:28 DC 04/22/19 09:36 Potassium Chloride (Micro-K Extencaps) 40 meq Q8H PO 04/17/19 08:00 04/17/19 10:04 DC 04/17/19 09:33 Saliva Substitute (Mouthkote) 2 sprays QID MT 04/15/19 13:00 04/28/19 08:21 Senna (Senokot) 1 tab QHS PO 04/14/19 21:00 04/26/19 20:14 Simvastatin (Zocor) 20 mg DAILY PO 04/15/19 09:00 04/28/19 08:18 Spironolactone (Aldactone) 25 mg QAM PO 04/15/19 09:00 04/28/19 10:46 DC 04/27/19 09:05 Sucralfate (Carafate) 1 gm ACHS PO 04/16/19 12:00 04/16/19 11:33 DC Thiamine HCl (Thiamine HCl) 100 mg DAILY PO 04/15/19 09:00 04/28/19 08:18 Tiotropium [place] (Spiriva Handihaler) 1 inhalation DAILY@08 INH 04/15/19 08:00 04/27/19 08:55 Trazodone HCl (Desyrel) 25 mg Q6H PRN PO AGITATION 04/14/19 18:45 04/24/19 11:17 DC Trazodone HCl (Desyrel) 25 mg QHS PO 04/14/19 21:00 04/24/19 11:17 DC 04/23/19 20:30 Trazodone HCl (Desyrel) 25 mg QHS PRN PO INSOMNIA 04/24/19 21:00 04/24/19 20:35 Verapamil HCl (Isoptin-Sr, Calan Sr) 120 mg BID PO 04/15/19 21:00 04/27/19 09:04 CHANDANA BRICEÑO MD Apr 28, 2019 11:29
[2019-04-28 11:44] LABS: PTH INTACT 114.6 PG/ML (18.5-88.0)
[2019-04-28] MEDS ORDERED: KCL 20MEQ in NS 1000ML 1,000 ML IV SCH (12:00)
--- NOTE | 2019-04-28 14:36 | IPNPDOC ---
Subjective Date Seen The patient was seen on 04/28/19. Subjective Chief Complaint/HPI Ms Fernandez is a 73 year old female admitted to the ARU with a L comminuted fracture of the left hip after she slipped and fell on ice (04-10-19). She is seen prior top taking her shower this morning. She continues to have some non- radiating, aching lower back pain for Roland Kruger plus Lidocaine has helped greatly. Pt became extremely fatigued and weak during the interview. She stated she just 'don't fell well' and this started while she was standing. She was lowered to the shower chair immediately and examined while sitting. General: Denies: Chills, Night Sweats Constitutional: Denies: Chills, Fever, Night Sweats Eyes: Denies: Pain ENT: Denies: Head Aches Pulmonary: Denies: Dyspnea, Cough Cardiovascular: Reports: Lt Headedness (see HPI); Denies: Chest Pain, Palpitations Gastrointestinal: Denies: Abdominal Pain Genitourinary: Denies: Dysuria Musculoskeletal: Reports: Back Pain Psych: Reports: Mood Normal Objective Physical Examination General Exam: Positive: Alert, Cooperative, Mild Distress Eye Exam: Positive: Conjunctiva & lids normal ENT Exam: Positive: Atraumatic, Mucous membr. moist/pink Chest Exam: Positive: Wheezing (generalized ) Heart Exam: Positive: Rate Normal, Regular Rhythm, Normal S1, Normal S2; Negative: Murmurs, Rubs Abdomen Exam: Positive: Soft, Other (Large, rounded ); Negative: Tenderness Extremity Exam: Positive: Edema (mild b/l pedal edema ) Skin Exam: Positive: Other skin issue (Bruising along both arms ) Neuro Exam: Positive: Normal Speech Psych Exam: Positive: Mood NL Assessment /Plan Assessment Ms Fernandez is a 73 year old female with PMH of COPD, paroxysmal Afib, Hypertension, Hyperlipidemia, Reflux esophagitis ,Hiatal hernia, Gastritis, Hypothyroid, gout, osteoporosis, Benign esophageal stenosis, diverticulosis, internal hemorrhoids, iron def anemia, Pulmonary nodule stable, CKD, CHF with preserved EF, COPD, Chronic thrombocytopenia with splenomegaly since 2012 thought to be due to ITP as per hematology, Duodenal lipoma, reccurent UTIs, admitted to the ARU after surgical fixation of a Left comminuted fracture of the left hip after she slipped and fell on ice (04-10-19). She had a big hematoma as she was on Eliquis as an outpatient. Patient required 5 units of PRBCs for acute blood loss anemia and underwent and ORIF. Postoperatively patient became dehydrated due to poor oral intake and suffered an FREDY, requiring IVF for hydration. Since being in rehab, Ms. Fernandez further developed LLE 2+ pitting edema. Dr. Tay ordered a venous USG of the extremity. Results: No DVT. Pedal edema improved with PT. Patient was noted to have dropping platelets while in ARU. She was also noted to have rising creatinine. So Nephrology was consulted. 1) Congestive heart failure - no evidence of volume overload at this time - hold Lasix, Spironolactone due to hypotension, FREDY - re-assess patient status a.m. (2) Pedal edema - no DVT per venous USG - pedal edema continues to improve (3) Dyspnea - pt denied dyspnea and coughing today - continue Duoneb and Symbicort, Spiriva (4) COPD (chronic obstructive pulmonary disease) - Patient will continue home medications. (5) Hip fracture, left - continue rehab per ARU (5) FREDY - Dr. Tay consulted with Dr. Carrasco (management per nephrology) - Cr. 1.21-1.85 - NS Bolus ordered - hold Lasix - BNP added per Dr. Tay (6) Hypotension - repeat vitals (see below) - IV fluids as per Dr. Carrasco - hold Lasix 40mg - continued management per Drs. Carrasco & Jasvir Plan/VTE VTE Prophylaxis Ordered?: Yes (Patient currently takes Eliquis 5mg tab twice per day) Plan Diet: Continue Current Activity: Continue Current VS, I&O, 24H, Fishbone Vital Signs/I&O Vital Signs Date Time Temp Pulse Resp B/P (MAP) Pulse Ox O2 Delivery O2 Flow Rate FiO2 04/28/19 12:34 18 04/28/19 10:50 89/54 (66) 99 04/28/19 10:35 98.0 97 Room Air I&O- Last 24 Hours up to 6 AM 04/28/19 06:00 Intake Total 1200 ml Output Total 600 ml Balance 600 ml Laboratory Data 24H LABS Laboratory Tests 2 04/28/19 06:45: Anion Gap 8, Glomerular Filtration Rate 28.4L, Uric Acid 9.8H, Calcium Level 7.3L, KG-Bpb-O-Type Natriuretic Peptide 1597H, Parathyroid Hormone (Intact) 114 .6H CBC/BMP Laboratory Tests 04/28/19 06:45 Microbiology Microbiology 04/28/19 Respiratory Virus Panel (PCR) (MARIA LUISA) - Final, Complete 04/19/19 Stool Occult Blood (MARIA LUISA) - Final, Complete ROSALBA QUEEN PA-C Apr 28, 2019 14:36 YANN CARROLL MD Apr 30, 2019 23:24
--- NOTE | 2019-04-28 19:09 | CR ---
DATE OF CONSULTATION: 04/28/2019 CONSULTATION FOR: Mariya Chávez REASON FOR CONSULTATION: Acute renal failure. HISTORY OF PRESENT ILLNESS: Mrs. Fernandez is a 73-year-old female who looks older than her stated age and has multiple chronic medical problems. She was admitted to [facility] on April 10 due to left hip fracture secondary to fall. She is now admitted to acute rehabilitation since April 14. She had shortness of breath and lower extremity edema, due to which she was diuresed. Over last couple of days, her kidney function has worsened once again, and creatinine is up to 1.85. She had an acute renal failure even previously on April 15, when creatinine was up to 1.59, and at that time her proBNP level was 7813. Then her kidney function improved, but brain natriuretic peptide (BNP) was as high as 10,960 on April 16. I was asked to see her today because of worsening kidney function. At the time of my arrival, the patient was sitting on a chair right next to the door. Nursing staff was trying to get her to the shower; however, she felt very dizzy and had to sit down. Her blood pressure is down to 87 mm of mercury systolic. The patient is very weak and has difficulty ambulating. PAST MEDICAL HISTORY: The patient has multiple chronic medical problems, includin. History of chronic obstructive pulmonary disease (COPD). 2. Atrial fibrillation. 3. History of diastolic congestive heart failure. 4. Hypertension. 5. Hyperlipidemia. 6. Chronic and recurrent urinary tract infections (UTIs). 7. Idiopathic thrombocytopenic purpura (ITP) . 8. Chronic kidney disease. 8. Esophageal stenosis. MEDICATIONS: Current medications in the hospital include: - oxycodone 2.5 mg three times a day as needed for pain - trazodone 25 mg at bedtime - calcitriol 0.5 mcg daily - pantoprazole 40 mg daily - lidocaine patch one patch daily - verapamil 120 mg twice a day - metoprolol 12.5 mg twice a day - fosfomycin 3 grams every 7 days - allopurinol 100 mg daily - amiodarone 200 mg daily - folic acid 1 mg daily - simvastatin 20 mg daily - thiamine 100 mg daily In addition, she is supposed to take: - levothyroxine 137 mcg daily - Colace 100 mg twice a day - Senokot one tablet at bedtime - Eliquis 5 mg twice a day - Symbicort inhaler two puffs twice a day - ferrous sulfate 325 mg twice a day - DuoNeb four times a day - magnesium hydroxide 30 mL for constipation as needed - Zofran 4 mg as needed for nausea. ALLERGIES: She has allergy to PENICILLIN, SULFA, TETRACYCLINE, TRAMADOL, and ZOLPIDEM. PERSONAL AND SOCIAL HISTORY: The patient currently does not smoke or drink. She is a former smoker. FAMILY HISTORY: Noncontributory for this admission. PAST SURGICAL HISTORY: Significant for: 1. Tonsillectomy. 2. Adenoidectomy. 3. Appendectomy. 4. Total thyroidectomy. 5. Now left hip open reduction, internal fixation (ORIF). PHYSICAL EXAMINATION: This is a very frail, pale, and elderly female. Temperature is 98 degrees Fahrenheit, heart rate 98 per minute, and respiratory rate 20 per minute. Blood pressure 86/50 mm of mercury and oxygen saturation 92%. Head is atraumatic. Neck is supple and without jugular venous distention (JVD) or thyroid enlargement. Heart sounds are regular and somewhat tachycardiac. Lungs have bilateral basilar crepitations, which sound mostly chronic. No wheezing or rales. Abdomen soft and nontender, and bowel sounds are normal. Extremities have no cyanosis or clubbing. She has edema on her left leg, and surgical incision and dressings are intact on the left thigh and hip area. On the right leg there is minimal edema. Neurologically, she is awake, alert, and able to answer questions. LABORATORY DATA: On April 23, BUN was 29 and creatinine 1.11. Sodium 139 and potassium 4.3. Today her BUN is up to 42 and creatinine 1.85. Yesterday her albumin was 1.9 and total protein 5.1. A BNP level was 10,960 on April 16 and came down to 5208 on April 17. It was down to 2667 on April 20. Today's CBC show WBC count 7.9, hemoglobin 8.6, and hematocrit 30. Platelets 119. PROBLEMS: 1. Acute kidney injury superimposed on chronic kidney disease. She has mild chronic kidney disease even at baseline. Acute renal failure seems to be related (cut off). She was receiving Lasix and spironolactone. Lasix has already been stopped, and I will stop her spironolactone also. During her admission for hip fracture to the medical service, she did have a renal ultrasound done on April 13, which did not show any hydronephrosis and had only age-related atrophic changes. The patient is now hypotensive, and we will give her a fluid bolus of 500 mL normal saline followed by normal saline at about 70 mL per hour for one more liter. Renal profile will be checked again tomorrow morning. 2. Orthostatic hypotension, most likely related to dehydration. Her lower extremity edema is probably not due to volume overload but recent hip fracture and large hematoma in her left thigh and hip area. She has required multiple transfusions. She has a history of atrial fibrillation and has been on verapamil and metoprolol. At present, her heart rate is still in 90s, so we cannot cut down her metoprolol or verapamil. Will try to optimize her volume status and see if her kidney function improves. 3. Anemia. She does have history of acute blood loss anemia requiring transfusions. Complete blood count (CBC) should be checked again tomorrow morning and transfusion considered if her hemoglobin is below 8.0. Thank you for involving me in the care of Mrs. Fernandez. I will follow her along with you.
[2019-04-28] MEDS: SENNA 8.6 MG TAB (SENOKOT) PO SCH (20:23)
[2019-04-28] MEDS: **NOTE PATIENT COMMENT** MISC XX SCH (20:24)
[2019-04-29] MEDS: LEVOTHYROXINE 137MCG TABLET (0.137MG) PO SCH (05:35)
[2019-04-29 06:00] VITALS: BP 100/55
[2019-04-29] MEDS: oxyCODONE 5MG TAB PO SCH ×3 (07:13→16:50)
[2019-04-29 07:27] LABS: HEMATOCRIT 37.6 % (36.0-47.0); HEMOGLOBIN 10.7 g/dl (12.0-15.5); MEAN CORPUSCULAR HEMOGLOBIN 28.1 pg (27.0-33.0); MEAN CORPUSCULAR HGB CONC 28.5 g/dl (32.0-36.5); MEAN CORPUSCULAR VOLUME 98.7 fl (80.0-96.0); PLATELET COUNT, AUTOMATED 156 10^3/uL (150-450); RED BLOOD COUNT 3.81 10^6/uL (4.00-5.40); WHITE BLOOD COUNT 14.7 10^3/uL (4.0-10.0)
[2019-04-29 07:53] LABS: ALBUMIN 1.8 GM/DL (3.2-5.2); CALCIUM LEVEL 6.9 MG/DL (8.8-10.2); CREATININE FOR GFR 1.76 MG/DL (0.55-1.30); PHOSPHORUS LEVEL 4.1 MG/DL (2.5-4.9); POTASSIUM SERUM 4.7 MEQ/L (3.5-5.1)
[2019-04-29] MEDS: IPRATROPIUM 0.5MG/ALBUTEROL 2.5MG INH SOL UD 3ML (DUONEB)(J7620) NEB SCH ×4 (08:00→19:34)
[2019-04-29] MEDS: SYMBICORT 80/4.5MCG INHALER 6GM INH SCH ×2 (08:00→19:34)
[2019-04-29] MEDS: TIOTROPIUM INHALER/CAPSULE (SPIRIVA) INH SCH (08:00)
[2019-04-29] MEDS: DOCUSATE SODIUM 100 MG CAP PO SCH ×2 (08:54→21:50)
[2019-04-29] MEDS: LIDOCAINE 5% (LIDODERM) PATCH TD SCH (08:54)
[2019-04-29] MEDS: CALCITRIOL 0.25 MCG CAP (S0169) PO SCH (08:54)
[2019-04-29] MEDS: FERROUS SULFATE 325MG TAB PO SCH ×2 (08:55→21:50)
[2019-04-29] MEDS: APIXABAN 5 MG TAB (ELIQUIS) PO SCH ×2 (08:55→21:50)
[2019-04-29] MEDS: guaiFENesin 200 MG TAB PO SCH ×3 (08:55→21:50)
[2019-04-29] MEDS: ACETAMINOPHEN 500 MG TAB PO SCH ×3 (08:55→21:57)
[2019-04-29] MEDS: THIAMINE 100 MG TAB PO SCH (08:55)
[2019-04-29] MEDS: SIMVASTATIN 20 MG TAB PO SCH (08:55)
[2019-04-29] MEDS: PANTOPRAZOLE 40MG TAB (PROTONIX) PO SCH (08:55)
[2019-04-29] MEDS: FOLIC ACID 1 MG TAB PO SCH (08:55)
[2019-04-29] MEDS: SALIVA SUBSTITUTE(MOUTHKOTE) BTL MT SCH ×4 (08:56→21:53)
[2019-04-29] MEDS: allopurinoL 100 MG TAB PO SCH (08:56)
[2019-04-29] MEDS: BISACODYL 5 MG TAB PO SCH (08:56)
[2019-04-29] MEDS: METOPROLOL TART 12.5 MG PER 1/2 TAB PO SCH ×2 (08:57→21:00)
[2019-04-29] MEDS: VERAPAMIL 120 MG SR TAB PO SCH ×2 (08:57→21:00)
[2019-04-29] MEDS: AMIODARONE 200 MG TAB (PACERONE) PO SCH (08:57)
[2019-04-29] MEDS: ANALGESIC BALM CRM 120 GM TOP SCH ×3 (08:58→21:00)
--- NOTE | 2019-04-29 09:03 | REP ---
Three views chest: 04/29/2019. Indication: Dyspnea. Comparison: 04/17/2019. Findings: There is a new right pleural effusion. Right lower lobe air space consolidation is additionally noted. The left lung is essentially clear. There is no pneumothorax. Impression: New right-sided pleural effusion and right lower lobe air space consolidation. Electronically Signed by Abimael Ayoub DO 04/29/2019 08:55 A
--- NOTE | 2019-04-29 09:53 | IPNPDOC ---
PM&R Progress Note DATE OF SERVICE: Apr 29, 2019 [employer] Progress Note Subjective: Patient reporting she wants to go home soon, but has been less motivated. She reports her back hurts and was encouraged to sped more time in the recliner, up and out of bed. She denies trouble breathing or dizziness. Patient seen this morning REVIEW OF SYSTEMS: The following is a completed review of systems and has been reviewed. Review of systems otherwise unremarkable. PAIN: Patient self reports no pain at rest EYES: No recent vision changes EARS, NOSE, & THROAT: denies throat pain, (-) dysphagia, or rhinorrhea CARDIOVASCULAR: Denies chest pain or palpitations, +right sided sternal pain PULMONARY:denies shortness of breath GASTROINTESTINAL: Denies constipation/diarrhea GENITOURINARY: denies dysuria MUSCULOSKELETAL: left hip fracture NEUROLOGICAL:no tremor or seizure activity HEMATOLOGICAL: +easy bruising SKIN: +left hip incision and scattered ecchymosis PSYCHIATRIC: +confused (resolved) All other review of systems found to be negative. PHYSICAL EXAMINATION: VITAL SIGNS: Please see below. GENERAL: Pleasant and cooperative. No acute distress. HEENT: PERRL. Extraocular movements intact. Clear conjunctiva CARDIOVASCULAR: Irregular rate and rhythm. No murmurs, rubs, or gallops LUNGS: +CTA throughout, no crackles or wheeze ABDOMEN: Soft, nontender, mildly distended. Positive bowel sounds. Normal active bowel sounds NEUROLOGICAL: Alert and oriented x3, appeared confused, but able to follow commands Cranial nerves II through XII grossly intact. Sensation grossly intact including 1st web space on left EXTREMITIES: 5-\\5 strength bilateral upper extremities. 4\\5 strength right lower extremity. 4/5 strength in left ankle DF, EHL, and PF (limited due to surgery) +LLE edema and RLE edema (improving) (-) Homans (+) TTP bilat lower lumbar paraspinals (+) TTP right sternum SKIN: left hip and groin with ecchymosis, scattered ecchymosis bilat UE, left hip incision with edema and ecchymosis and scant serosanguineous drainage (imp roving) ASSESSMENT:73-year-old F with past medical history of Afib who presents status post fall with left hip fracture PLAN: 1. 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 Ortho: s/p left hip ORIF, ortho consulted 3. Neuro: patient with delirium and agitation-resolved 4. Cardiac: hx of Afib c/u eliquis, amiodarone, metoprolol, c/u verapamil- medicine consulted to assist in management -recent ECHO showing grade 1 diastolic CHF -acute CHF exacerbation which has resolved, s/p multi-day course of IV lasix followed by oral currently on hold ins etting of FREDY - spironolactone 25mg daily on hold c/u to monitor -c/u 1500cc fluid restrict and no salt diet- medicine recs appreciated -daily weight ordered 5. Resp: Hx of COPD, c/u Duonebs standing, monitor for infection -encourage incentive spirometry -c/u Symbicort -resp panel negative -CXR today, "New right-sided pleural effusion and right lower lobe air space consolidation", will discuss possibility of starting antibitoics for possible pneumonia with hospitalist 6. Renal: FREDY on CKD slightly better today- renal consulted, s/p IVF, recs appreciated, deferring to renal for fluid management -c/u calcitriol home dose 7. Heme: patient with significant post-op anemia s/p 4 units rbcs on inpatient with large left groin hematoma improving, FOBT negative -patient with hx of thrombocytopenia-stable c/u to monitor while on protonix -no drainage from surgical incision 8. DVT ppx: c/u Eliquis 5 BID for afib -Doppler negative for proximal LLE DVT 9. Pain: Tylenol, c/u oxycodone dosing to 2.5 standing, d/c'd gabapentin as may be contributing to overall lethargy, c/u menthol salicylate rub for low back pain and to sternum for costochondritis 10. GI px: will restart protonix as patient reports this helps with her dyspepsia and monitor platelets-stable 11. : hx of recurrent UTIs on macrobid ppx, however given Advertising Manager function switched to fosfomycin 3g q7days as off-label prophylactic dosing -no dysuria reported, leukocytosis resolved 10. Dispo: progress beginning to plateau due to back pain and decreased motivation, will defer d/c until family training to assess family comfort taking her home Allergies Coded Allergies: tetracycline (Verified Allergy, Severe, swelling, peeling of the tongue, 02/19/19) zolpidem (Verified Allergy, Severe, respiratory distress, 02/19/19) Sulfa (Sulfonamide Antibiotics) (Verified Allergy, Intermediate, hives, 02/19/19) Penicillins (Verified Adverse Reaction, Intermediate, N/V, 02/19/19) tramadol (Verified Adverse Reaction, Intermediate, N/V, 02/19/19) Vital Signs Vital Signs Date Time Temp Pulse Resp B/P (MAP) Pulse Ox O2 Delivery O2 Flow Rate FiO2 04/29/19 08:57 74 101/52 04/29/19 07:50 20 04/29/19 07:13 Room Air 04/29/19 06:00 98.0 95 Laboratory Data CBC/BMP Laboratory Tests 04/29/19 07:11 Labs 24H Laboratory Tests 2 04/29/19 07:11: Nucleated Red Blood Cells % (auto) 0.3H, Anion Gap 6L, Glomerular Filtration Rate 30.0L, Calcium Level 6.9L, Phosphorus Level 4.1, RN-Xqk-N-Type Natriuretic Peptide 1526H, Albumin 1.8L Microbiology Microbiology 04/28/19 Respiratory Virus Panel (PCR) (MARIA LUISA) - Final, Complete 04/19/19 Stool Occult Blood (MARIA LUISA) - Final, Complete Current Medications Current Medications Current Medications Medications (Trade) Dose Ordered Sig/Ady Route PRN Reason Start Time Stop Time Status Last Admin Dose Admin Acetaminophen (Tylenol Tab) 1,000 mg TID PO 04/14/19 21:00 04/29/19 08:55 Albuterol/ Ipratropium (Duoneb (Ipr 0.5mg/Alb 2.5mg)) 3 ml RQID NEB 04/14/19 20:00 04/28/19 15:19 Allopurinol (Zyloprim) 100 mg DAILY PO 04/15/19 09:00 04/29/19 08:56 Amiodarone HCl (Pacerone, Cordarone) 200 mg DAILY PO 04/15/19 09:00 04/29/19 08:57 Apixaban (Eliquis) 5 mg BID PO 04/14/19 21:00 04/29/19 08:55 Bisacodyl (Dulcolax Tab) 5 mg DAILY PO 04/16/19 09:00 04/18/19 09:46 Bisacodyl (Dulcolax Tab) 5 mg DAILYPRN PRN PO CONSTIPATION 04/14/19 17:00 Budesonide/ Formoterol Fumarate (Symbicort 80/ 4.5mcg) 2 puff BID INH 04/14/19 21:00 04/28/19 20:37 Calcitriol (Rocaltrol) 0.5 mcg BID PO 04/23/19 09:00 04/23/19 11:05 DC 04/23/19 09:01 Calcitriol (Rocaltrol) 0.5 mcg DAILY PO 04/24/19 09:00 04/29/19 08:54 Calcitriol (Rocaltrol) 0.5 mcg DAILY PO 04/15/19 09:00 04/23/19 07:44 DC 04/22/19 09:36 Calcium Carbonate (Tums) 500 mg BID PRN PO INDIGESTION 04/18/19 14:45 04/23/19 09:26 DC 04/18/19 18:08 Calcium/Vitamin D (Oscal D) 1,000 mg DAILY PO 04/21/19 09:00 04/23/19 07:44 DC 04/22/19 09:36 Calcium/Vitamin D (Oscal D) 1,000 mg DAILY PO 04/24/19 09:00 04/28/19 09:07 DC 04/28/19 08:20 Calcium/Vitamin D (Oscal D) 2,000 mg DAILY PO 04/23/19 09:00 04/23/19 11:05 DC 04/23/19 09:02 Docusate Sodium (Colace) 100 mg BID PO 04/14/19 21:00 04/29/19 08:54 Ferrous Gluconate (Fergon) 324 mg BID PO 04/14/19 21:00 04/14/19 18:57 DC Ferrous Sulfate (Ferrous Sulfate) 325 mg BID PO 04/14/19 21:00 04/29/19 08:55 Folic Acid (Folic Acid) 1 mg DAILY PO 04/15/19 09:00 04/29/19 08:55 Fosfomycin Tromethamine (Monurol) 3 gm Q7D PO 04/15/19 21:00 04/22/19 20:55 Furosemide (LASIX injection) 20 mg BID@,17 IV 04/15/19 17:00 04/21/19 19:00 DC 04/21/19 17:36 Furosemide (Lasix) 20 mg BID@,17 PO 04/22/19 09:00 04/24/19 09:20 DC 04/23/19 16:48 Furosemide (Lasix) 40 mg BID@,17 PO 04/24/19 09:00 04/27/19 07:40 DC 04/26/19 16:55 Furosemide (Lasix) 40 mg DAILY PO 04/27/19 09:00 04/28/19 07:56 DC 04/27/19 11:25 Gabapentin (Neurontin) 100 mg BID PO 04/23/19 09:00 04/24/19 09:25 DC 04/23/19 20:31 Gabapentin (Neurontin) 200 mg BID PO 04/24/19 09:00 04/28/19 09:07 DC 04/28/19 08:19 Guaifenesin (Robitussin Tab) 400 mg TID PO 04/17/19 16:00 04/29/19 08:55 Levalbuterol HCl (Xopenex Neb) 1.25 mg Q6HP PRN INH SOB/WHEEZING 04/14/19 17:00 04/23/19 09:26 DC 04/14/19 22:31 Levothyroxine Sodium (Synthroid) 137 mcg DAILY@06 PO 04/15/19 06:00 04/29/19 05:35 Lidocaine (Lidoderm Patch) 1 patch DAILY TD 04/21/19 09:00 04/29/19 08:54 Magnesium Hydroxide (Milk Of Magnesia) 30 ml DAILYPRN PRN PO CONSTIPATION 04/14/19 17:00 04/16/19 10:14 Menthol/Methyl Salicylate (Bengay Cream) 1 dose TID TOP 04/27/19 09:00 04/29/19 08:58 Metoprolol Tartrate (Lopressor) 12.5 mg BID PO 04/14/19 21:00 04/15/19 12:36 DC 04/15/19 09:51 Metoprolol Tartrate (Lopressor) 12.5 mg BID PO 04/15/19 21:00 04/27/19 09:05 Miscellaneous (Unresolved Clarification Entry) SEE LABEL COMMENTS DAILY XX 04/27/19 09:00 04/27/19 08:33 DC Miscellaneous (Unresolved Clarification Entry) SEE LABEL COMMENTS DAILY XX 04/14/19 09:00 04/15/19 12:43 DC Miscellaneous (Unresolved Clarification Entry) SEE LABEL COMMENTS DAILY XX 04/20/19 09:00 04/21/19 08:39 DC Nitrofurantoin Monoh/Nitrofur Macro (Macrobid) 100 mg DAILY PO 04/15/19 09:00 04/15/19 11:03 DC Non-Formulary Medication ( See Comment Field Below ) REMOVE LIDODERM PATCH DAILY@21 XX 04/21/19 21:00 04/28/19 20:24 Ondansetron HCl (Zofran) 4 mg Q6HP PRN PO NAUSEA 04/14/19 17:00 04/28/19 09:32 Oxycodone HCl (Roxicodone, Oxyir) 2.5 mg TID@0700,1200,1700 PO 04/28/19 12:00 04/29/19 07:13 Oxycodone HCl (Roxicodone, Oxyir) 5 mg Q4HP PRN PO PAIN 04/14/19 17:00 04/23/19 09:24 DC 04/23/19 06:05 Oxycodone HCl (Roxicodone, Oxyir) 5 mg TID@0700,1200,1700 PO 04/23/19 12:00 04/28/19 09:07 DC 04/28/19 06:13 Pantoprazole Sodium (Protonix) 40 mg BID PO 04/14/19 21:00 04/16/19 09:33 DC 04/16/19 08:17 Pantoprazole Sodium (Protonix) 40 mg DAILY PO 04/22/19 09:00 04/29/19 08:55 Potassium Chloride/Sodium Chloride 1,000 ml @ 80 mls/hr [id number] IV 04/28/19 12:00 04/29/19 00:29 DC 04/28/19 15:57 Potassium Chloride (Micro-K Extencaps) 20 meq DAILY PO 04/17/19 09:00 04/17/19 10:04 DC Potassium Chloride (Micro-K Extencaps) 20 meq Q48H PO 04/19/19 09:00 04/17/19 10:59 DC Potassium Chloride (Micro-K Extencaps) 40 meq DAILY PO 04/18/19 09:00 04/22/19 10:28 DC 04/22/19 09:36 Potassium Chloride (Micro-K Extencaps) 40 meq Q8H PO 04/17/19 08:00 04/17/19 10:04 DC 04/17/19 09:33 Saliva Substitute (Mouthkote) 2 sprays QID MT 04/15/19 13:00 04/29/19 08:56 Senna (Senokot) 1 tab QHS PO 04/14/19 21:00 04/26/19 20:14 Simvastatin (Zocor) 20 mg DAILY PO 04/15/19 09:00 04/29/19 08:55 Spironolactone (Aldactone) 25 mg QAM PO 04/15/19 09:00 04/28/19 10:46 DC 04/27/19 09:05 Sucralfate (Carafate) 1 gm ACHS PO 04/16/19 12:00 04/16/19 11:33 DC Thiamine HCl (Thiamine HCl) 100 mg DAILY PO 04/15/19 09:00 04/29/19 08:55 Tiotropium [place] (Spiriva Handihaler) 1 inhalation DAILY@08 INH 04/15/19 08:00 04/28/19 07:30 Trazodone HCl (Desyrel) 25 mg Q6H PRN PO AGITATION 04/14/19 18:45 04/24/19 11:17 DC Trazodone HCl (Desyrel) 25 mg QHS PO 04/14/19 21:00 04/24/19 11:17 DC 04/23/19 20:30 Trazodone HCl (Desyrel) 25 mg QHS PRN PO INSOMNIA 04/24/19 21:00 04/24/19 20:35 Verapamil HCl (Isoptin-Sr, Calan Sr) 120 mg BID PO 04/15/19 21:00 04/27/19 09:04 CHANDANA BRICEÑO MD Apr 29, 2019 09:52
--- NOTE | 2019-04-29 10:13 | REP ---
Bilateral lower extremity Duplex Doppler venous ultrasound: Real time compression and duplex Doppler interrogation of the bilateral lower extremity deep venous system is performed. Bilaterally, the common femoral, superficial femoral and popliteal veins are fully compressible with transducer pressure and demonstrate normal spontaneous and phasic flow, without evidence of deep venous thrombosis. Impression: No evidence of deep venous thrombosis of the bilateral lower extremity femoral popliteal venous system. Electronically Signed by Deshawn Jones MD 04/29/2019 10:04 A
[2019-04-29] MEDS: GASTROGRAFIN SOLUTION 30ML PO SCH ×2 (12:11→12:48)
[2019-04-29 14:00] VITALS: BP 115/58
--- NOTE | 2019-04-29 16:48 | IPNPDOC ---
Subjective Date Seen The patient was seen on 04/29/19. Subjective Chief Complaint/HPI Ms Fernandez is a 73 year old female admitted to the ARU with a L comminuted fracture of the left hip after she slipped and fell on ice (04-10-19). Ms Fernandez is seen this morning laying in bed with one of her daughters and several family members. Today, she stated she is feeling exhausted and continues to have pain in the lower back; Lidocaine and BenGay have been helpful. She also complained of left upper quadrant pain and some cough, denied any SOB. General: Reports: Chills Constitutional: Reports: Weakness; Denies: Chills, Night Sweats Eyes: Denies: Pain ENT: Denies: Head Aches Pulmonary: Reports: Cough; Denies: Dyspnea Cardiovascular: Denies: Chest Pain, Palpitations Gastrointestinal: Denies: Abdominal Pain Musculoskeletal: Reports: Back Pain Objective Physical Examination General Exam: Positive: Alert, Cooperative, Mild Distress Eye Exam: Positive: Conjunctiva & lids normal ENT Exam: Positive: Atraumatic, Mucous membr. moist/pink Chest Exam: Positive: Wheezing (generalized ) Heart Exam: Positive: Rate Normal, Regular Rhythm, Normal S1, Normal S2; Negative: Murmurs, Rubs Abdomen Exam: Positive: Soft, Mass (?LUQ), Other (Large, rounded ); Negative: Tenderness Extremity Exam: Positive: Edema (mild b/l pedal edema ) Skin Exam: Positive: Other skin issue (Bruising along both arms ) Neuro Exam: Positive: Normal Speech Psych Exam: Positive: Mood NL Assessment /Plan Assessment Ms Fernandez is a 73 year old female with PMH of COPD, paroxysmal Afib, Hypertension, Hyperlipidemia, Reflux esophagitis ,Hiatal hernia, Gastritis, Hypothyroid, gout, osteoporosis, Benign esophageal stenosis, diverticulosis, internal hemorrhoids, iron def anemia, Pulmonary nodule stable, CKD, CHF with preserved EF, COPD, Chronic thrombocytopenia with splenomegaly since 2012 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 admitted to the ARU after surgical fixation of a Left comminuted fracture of the left hip after she slipped and fell on ice (04-10-19). She had a big hematoma as she was on Eliquis as an outpatient. Patient required 5 units of PRBCs for acute blood loss anemia and underwent and ORIF. Postoperatively patient became dehydrated due to poor oral intake and suffered an FREDY, requiring IVF for hydration. Since being in rehab, Ms. Fernandez further developed LLE 2+ pitting edema. Dr. Tay ordered a venous USG of the extremity. Results: No DVT. Pedal edema improved with PT. Patient was noted to have dropping platelets while in ARU. She was also noted to have rising creatinine. Currently she also has rising WBC. She remains afebrile. CXR worse than before so CT chest was done showed moderate right effusion with adjacent right lung infiltrate predominantly involving the right lower lobe. Tiny left effusion. Minor left lower lobe infiltrate. Left hip Fracture s/p ORIF on management as per ARu. Pneumonia with effusion right > left possibility of HCAP will start on Zosyn will consider IR guided drain of the right effusion. FREDY on CKD stage 3 with secondary hyperparathyroidism. mildy improved today due to intravascular volume depletion as noted by rise in Hb from recent baseline, rise in BUN/cr given some IVF and diuretics held. Pedal edema due to possibly venous stasis, no DVT. contributed to by the very low albumin and acute on chronic anemia recently. improving Acute on chronic anemia this is due to acute blood loss into the hematoma after the fracture chronic anemia is due to IRon deficiency and some degree of anemia of chronic disease. Now hh stable in the 8 to 9 range. Continue iron. Chronic Thrombocytopenia since 2013 with massive splenomegaly with left upper quadrant mass. Splenomegaly in CT abdomen from 2012 This was discussed with Dr Wagoner patient has ITP with iron deficiency anemia. Bone was done this year which was normocellular and no hematological malignancy seen. No MDS. ITP which during the acute events with bleeding Now has improved. Diastolic Congestive heart failure Now seems to be euvolemic though has edema ad pleural [place] [id number] on 04/16 to 1500. COPD continue home meds, symbicort in place of breo, spiriva and duonebs. Paroxysmal Afib continue metoprolol, amiodarone, eliquis H/o Hypertension now with episodes of hypotension antihypertensives metoprolol and verapamil on high hold parameters. and diuretics stopped. possibly due to intravascular depletion. Gastritis/reflux/hiatal hernia continue pantoprazole Hypothyroid continue synthroid Gout continue allopurinol Monocytosis this is new patient did have a bone marrow biopsy earlier this year which was negative for any hematological malignancy. follow up Dr Wagoner Recurrent UTIs on suppressive prophylaxis with Fosfomycin. Plan/VTE VTE Prophylaxis Ordered?: Yes (Patient currently takes Eliquis 5mg tab twice per day) Plan Diet: Continue Current Activity: Continue Current VS, I&O, 24H, Fishbone Vital Signs/I&O Vital Signs Date Time Temp Pulse Resp B/P (MAP) Pulse Ox O2 Delivery O2 Flow Rate FiO2 04/29/19 14:00 97.6 109 18 115/58 (77) 95 Room Air I&O- Last 24 Hours up to 6 AM 04/29/19 06:00 Intake Total 1610 ml Output Total 350 ml Balance 1260 ml Laboratory Data 24H LABS Laboratory Tests 2 04/29/19 07:11: Nucleated Red Blood Cells % (auto) 0.3H, Anion Gap 6L, Glomerular Filtration Rate 30.0L, Calcium Level 6.9L, Phosphorus Level 4.1, GN-Chp-O-Type Natriuretic Peptide 1526H, Albumin 1.8L CBC/BMP Laboratory Tests 04/29/19 07:11 Microbiology Microbiology 04/28/19 Respiratory Virus Panel (PCR) (MARIA LUISA) - Final, Complete 04/19/19 Stool Occult Blood (MARIA LUISA) - Final, Complete ROSALBA QUEEN PA-C Apr 29, 2019 16:48 YANN CARROLL MD Apr 29, 2019 23:19
--- NOTE | 2019-04-29 17:50 | REP ---
HISTORY: Abdominal pain. COMPARISON: 04/13/2019 The lack of intravenous contrast decreases the sensitivity of the exam. For description of the lung bases, see the CT of the chest report of 04/29/2019. There is splenomegaly, status quo. There is no change in the appearance of the liver. There is at least one cholelith. Small gravel-like calculi are also suspected. The pancreas and adrenal glands are unchanged. There are bilateral nephroliths, at least some of which if not most of which represent renovascular calcifications, status quo. There is no evidence of hydronephrosis or hydroureter. There is no change in the abdominal aorta or periaortic regions. Scattered small and borderline sized periaortic lymph nodes are again noted, status quo. No free fluid or free air has developed. There is no change in bowel loops or their mesenteries. CT PELVIS: There is no change in the appearance of the intrapelvic contents. Bone window technique throughout the examination shows no change from the prior exam. IMPRESSION: There is no significant change from the prior exam. There is splenomegaly and cholelithiasis along with bilateral renal calcifications as described above. Electronically Signed by Sachin Carrion DO 04/30/2019 04:14 P
[2019-04-29] MEDS: PIPERACILLIN/TAZOBACTAM SOD 3.375 GM in D5W MINI-BAG PLUS 50 ML IV SCH (19:03)
--- NOTE | 2019-04-29 19:03 | REP ---
CT CHEST WITHOUT IV CONTRAST: CT chest performed without IV contrast. Sagittal and coronal reconstruction images are performed. There is a moderate right pleural effusion. There is adjacent right lung consolidative infiltrate. There is a tiny left effusion. There is some minor scattered patchy left lower lobe infiltrate. Mildly prominent mediastinal lymph nodes are likely reactive in nature. Aberrant right subclavian artery is noted. Heart is normal in size. There is no pericardial effusion. There is a small hiatal hernia. Subcentimeter gallstone is seen in the gallbladder. Spleen appears enlarged. IMPRESSION: Moderate right effusion with adjacent right lung infiltrate predominantly involving the right lower lobe. Tiny left effusion. Minor left lower lobe infiltrate. Electronically Signed by Deshawn Jones MD 04/29/2019 08:05 P
--- NOTE | 2019-04-29 19:21 | IPN ---
DATE: 04/29/2019 SUBJECTIVE: The patient was seen and examined at the bedside today morning. She had just come back after getting the Doppler of the bilateral lower extremities which was negative. She does report mild shortness of breath. She was given IV fluid hydration. Her diuretics are on hold. There is slight improvement in the renal function. Creatinine is down to 1.7 today. There is a bump in her white cell count which went up from 7.9 to 14.7 today. She got a chest x-ray done today which showed a right lower lobe infiltrate. OBJECTIVE: VITAL SIGNS: Temperature is 98 degrees Fahrenheit, blood pressure is 101/52, pulse is 74, respiratory of 18, saturating 95% on room air. INTAKE AND OUTPUT: Urine output recorded is 550 mL yesterday, 200 mL so far today since overnight. Weight in the bed scale is 72.9 kg. PHYSICAL EXAMINATION: GENERAL: The patient is awake, alert, oriented times three, laying in bed, in no apparent distress. HEAD AND NECK: Extraocular muscles intact. Pupils equally round and reactive to light. Mucous membranes are moist. Neck is supple. There is no significant jugular venous distention (JVD). CARDIOVASCULAR: S1, S2, regular rate, 1+ edema of the bilateral extremities. RESPIRATORY: Mildly decreased breath sounds at the bases, otherwise no active rales or rhonchi on the left side and she does have crepitations on the right lower and middle lung zones on deep inspiration. ABDOMEN: Soft. She has a palpable questionable mass in the left upper quadrant which is mildly tender. GENITOURINARY: Bladder is not palpable. MUSCULOSKELETAL: No clubbing or cyanosis, 1+ edema of the bilateral lower extremities. CENTRAL NERVOUS SYSTEM (VEIN PUMPER): No focal deficit. Power is 5/5 in all extremities. LABORATORY REVIEW: CBC showed a WBC 14.7, hemoglobin 10.7, platelets of 156. BMP showed sodium 136, potassium 4.7, chloride 107, bicarbonate 23, BUN 47, creatinine is 1.7, calcium 6.9, phosphorus is 4.1. Pro-BNP is 1526 which is the same as yesterday, albumin is 1.8. IMAGING STUDIES: Doppler of the bilateral lower extremities negative for DVT. She had a chest x-ray done which showed a new right-sided pleural effusion and right lower lobe airspace consolidation. CURRENT INPATIENT MEDICATIONS: IV fluids have been stopped now. She is currently not on any antibiotics except for fosfomycin 3 grams by mouth every seven days. ASSESSMENT AND PLAN: 1. Acute renal failure superimposed on chronic kidney disease. Her Lasix and spironolactone were stopped yesterday. The patient was given gentle IV fluid hydration. IV fluids were stopped today morning because of right-sided effusion and right lower lobe opacity. Renal function is slightly better today. Creatinine is down from 1.8 to 1.7. Continue to monitor for now. Continue to hold the diuretics. 2. Right lower lobe infiltrate. The patient is going to get a CT scan to rule out the possibility of a right lower lobe pneumonia versus effusion and atelectasis. No antibiotics at this time since the patient is afebrile, although the patient does have leukocytosis. Antibiotics will be started after the CT scan results. 3. Questionable left upper quadrant mass. The patient has a palpable mass in the left upper quadrant. She is going to get a CT scan of the abdomen and pelvis with oral contrast only. 4. Chronic diastolic congestive heart failure. The patient has a left ventricular ejection fraction (LVEF) around 60% to 65% with dilated right ventricle on the latest echocardiogram and diuretics have been held because of acute renal failure.
[2019-04-29 20:00] VITALS: BP 117/62
[2019-04-29] MEDS: FOSFOMYCIN TROMETHAMINE 3 GM POWDER PACKET (MONUROL) PO SCH (21:49)
[2019-04-29] MEDS: SENNA 8.6 MG TAB (SENOKOT) PO SCH (21:50)
[2019-04-29] MEDS: **NOTE PATIENT COMMENT** MISC XX SCH (21:56)
[2019-04-30] MEDS: PIPERACILLIN/TAZOBACTAM SOD 3.375 GM in D5W MINI-BAG PLUS 50 ML IV SCH ×2 (00:16→06:13)
[2019-04-30 06:00] VITALS: BP 122/58
[2019-04-30] MEDS: LEVOTHYROXINE 137MCG TABLET (0.137MG) PO SCH (06:12)
[2019-04-30] MEDS: oxyCODONE 5MG TAB PO SCH ×3 (06:13→16:25)
[2019-04-30 07:11] LABS: HEMATOCRIT 35.3 % (36.0-47.0); HEMOGLOBIN 9.8 g/dl (12.0-15.5); MEAN CORPUSCULAR HEMOGLOBIN 27.7 pg (27.0-33.0); MEAN CORPUSCULAR HGB CONC 27.8 g/dl (32.0-36.5); MEAN CORPUSCULAR VOLUME 99.7 fl (80.0-96.0); PLATELET COUNT, AUTOMATED 111 10^3/uL (150-450); RED BLOOD COUNT 3.54 10^6/uL (4.00-5.40); WHITE BLOOD COUNT 9.5 10^3/uL (4.0-10.0)
[2019-04-30 07:35] LABS: CALCIUM LEVEL 6.7 MG/DL (8.8-10.2); CREATININE FOR GFR 1.35 MG/DL (0.55-1.30); GLOMERULAR FILTRATION RATE 40.8 (>39); POTASSIUM SERUM 4.3 MEQ/L (3.5-5.1)
[2019-04-30 07:43] LABS: ATYPICAL LYMPH 1 % (0-5); LYMPHOCYTES 23 % (16-44); METAMYELOCYTES 1 % (0-0); MONOCYTES 20 % (0-5); MYELOCYTES 1 % (0-0); NEUTROPHILS 54 % (28-66); PLATELET ESTIMATE DECREASED (NORMAL)
[2019-04-30 07:44] LABS: ANISOCYTOSIS 1+; POLYCHROMASIA 1+; TOXIC VACUOLATION 1+
[2019-04-30] MEDS: IPRATROPIUM 0.5MG/ALBUTEROL 2.5MG INH SOL UD 3ML (DUONEB)(J7620) NEB SCH ×4 (08:00→19:37)
[2019-04-30] MEDS: SYMBICORT 80/4.5MCG INHALER 6GM INH SCH ×2 (08:11→19:37)
[2019-04-30] MEDS: TIOTROPIUM INHALER/CAPSULE (SPIRIVA) INH SCH (08:11)
[2019-04-30] MEDS: BISACODYL 5 MG TAB PO SCH (09:00)
[2019-04-30] MEDS: VERAPAMIL 120 MG SR TAB PO SCH ×3 (09:00→20:48)
[2019-04-30] MEDS: DOCUSATE SODIUM 100 MG CAP PO SCH ×2 (09:00→20:54)
[2019-04-30] MEDS: LIDOCAINE 5% (LIDODERM) PATCH TD SCH (09:04)
[2019-04-30] MEDS: METOPROLOL TART 12.5 MG PER 1/2 TAB PO SCH ×2 (09:07→20:49)
[2019-04-30] MEDS: CALCITRIOL 0.25 MCG CAP (S0169) PO SCH (09:08)
[2019-04-30] MEDS: SIMVASTATIN 20 MG TAB PO SCH (09:08)
[2019-04-30] MEDS: FOLIC ACID 1 MG TAB PO SCH (09:08)
[2019-04-30] MEDS: THIAMINE 100 MG TAB PO SCH (09:08)
[2019-04-30] MEDS: FERROUS SULFATE 325MG TAB PO SCH ×2 (09:08→20:54)
[2019-04-30] MEDS: allopurinoL 100 MG TAB PO SCH (09:08)
[2019-04-30] MEDS: AMIODARONE 200 MG TAB (PACERONE) PO SCH (09:08)
[2019-04-30] MEDS: PANTOPRAZOLE 40MG TAB (PROTONIX) PO SCH (09:08)
[2019-04-30] MEDS: APIXABAN 5 MG TAB (ELIQUIS) PO SCH ×2 (09:08→20:54)
[2019-04-30] MEDS: ACETAMINOPHEN 500 MG TAB PO SCH ×3 (09:08→20:54)
[2019-04-30] MEDS: guaiFENesin 200 MG TAB PO SCH ×3 (09:09→20:54)
[2019-04-30] MEDS: SALIVA SUBSTITUTE(MOUTHKOTE) BTL MT SCH ×4 (09:09→20:56)
[2019-04-30] MEDS: ANALGESIC BALM CRM 120 GM TOP SCH ×3 (09:10→21:02)
--- NOTE | 2019-04-30 10:00 | IPNPDOC ---
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 She denies fevers or chills and was encouraged to ambulate more so that she can go home sooner. Patient seen this morning REVIEW OF SYSTEMS: The following is a completed review of systems and has been reviewed. Review of systems otherwise unremarkable. PAIN: Patient self reports no pain at rest EYES: No recent vision changes EARS, NOSE, & THROAT: denies throat pain, (-) dysphagia, or rhinorrhea CARDIOVASCULAR: Denies chest pain or palpitations, +right sided sternal pain PULMONARY:denies shortness of breath GASTROINTESTINAL: Denies constipation/diarrhea GENITOURINARY: denies dysuria MUSCULOSKELETAL: left hip fracture NEUROLOGICAL:no tremor or seizure activity HEMATOLOGICAL: +easy bruising SKIN: +left hip incision and scattered ecchymosis PSYCHIATRIC: +confused (resolved) All other review of systems found to be negative. PHYSICAL EXAMINATION: VITAL SIGNS: Please see below. GENERAL: Pleasant and cooperative. No acute distress. HEENT: PERRL. Extraocular movements intact. Clear conjunctiva CARDIOVASCULAR: Irregular rate and rhythm. No murmurs, rubs, or gallops LUNGS: +CTA throughout, no crackles or wheeze ABDOMEN: Soft, nontender, mildly distended. Positive bowel sounds. Normal active bowel sounds NEUROLOGICAL: Alert and oriented x3, appeared confused, but able to follow commands Cranial nerves II through XII grossly intact. Sensation grossly intact including 1st web space on left EXTREMITIES: 5-\\5 strength bilateral upper extremities. 4\\5 strength right lower extremity. 4/5 strength in left ankle DF, EHL, and PF (limited due to surgery) +LLE edema and RLE edema (improving) (-) Homans (+) TTP bilat lower lumbar paraspinals (+) TTP right sternum SKIN: left hip and groin with ecchymosis, scattered ecchymosis bilat UE, left hip incision with edema and ecchymosis and scant serosanguineous drainage (improving) ASSESSMENT:73-year-old F with past medical history of Afib who presents status post fall with left hip fracture PLAN: 1. Rehab- PT- WBAT to LLE, advance agit training, strengthen bilat LE, maintain ROM and stretch- ambulating with RW-family training schedule for tomorrow OT- advance ADLs, scapular stabilization exercises C[employer] for hx of esophageal strictures and cog eval 2. Ortho: s/p left hip ORIF, ortho consulted 3. Neuro: patient with delirium and agitation-resolved 4. Cardiac: hx of Afib c/u eliquis, amiodarone, metoprolol, c/u verapamil- medicine consulted to assist in management -recent ECHO showing grade 1 diastolic CHF -acute CHF exacerbation which has resolved, s/p multi-day course of IV lasix followed by oral currently on hold ins etting of FREDY - spironolactone 25mg daily on hold c/u to monitor -c/u 1500cc fluid restrict and no salt diet- medicine recs appreciated -daily weight ordered 5. Resp: Hx of COPD, c/u Duonebs standing, monitor for infection -encourage incentive spirometry -c/u Symbicort -resp panel negative -CXR 04-29-19, "New right-sided pleural effusion and right lower lobe air space consolidation" -CT Chest "Moderate right effusion with adjacent right lung infiltrate pre dominantly involving the right lower lobe. Tiny left effusion. Minor left lower lobe infiltrate.", started on Zosyn- medicine recs appreciated, leukocytosis resolved 6. Renal: FREDY on CKD slightly better today- renal consulted, s/p IVF, recs appreciated, deferring to renal for fluid management -c/u calcitriol home dose 7. Heme: patient with significant post-op anemia s/p 4 units rbcs on inpatient with large left groin hematoma improving, FOBT negative -patient with hx of thrombocytopenia-stable c/u to monitor while on protonix -no drainage from surgical incision 8. DVT ppx: c/u Eliquis 5 BID for afib -Doppler negative for proximal LLE DVT x2 9. Pain: Tylenol, c/u oxycodone dosing to 2.5 standing, d/c'd gabapentin as may be contributing to overall lethargy, c/u menthol salicylate rub for low back pain and to sternum for costochondritis which is improving 10. GI px: will restart protonix as patient reports this helps with her dyspepsia and monitor platelets-starting to trend back down 11. : hx of recurrent UTIs on macrobid ppx, however given Education Reporter function switched to fosfomycin 3g q7days as off-label prophylactic dosing -no dysuria reported, leukocytosis resolved 10. Dispo: progress beginning to plateau due to back pain and decreased motivation, will defer d/c until family training to assess family comfort taking her home- training today Allergies Coded Allergies: tetracycline (Verified Allergy, Severe, swelling, peeling of the tongue, 02/19/19) zolpidem (Verified Allergy, Severe, respiratory distress, 02/19/19) Sulfa (Sulfonamide Antibiotics) (Verified Allergy, Intermediate, hives, 02/19/19) Penicillins (Verified Adverse Reaction, Intermediate, N/V, 02/19/19) tramadol (Verified Adverse Reaction, Intermediate, N/V, 02/19/19) Vital Signs Vital Signs Date Time Temp Pulse Resp B/P (MAP) Pulse Ox O2 Delivery O2 Flow Rate FiO2 04/30/19 09:07 113 150/72 04/30/19 07:19 18 04/30/19 06:13 Room Air 04/30/19 06:00 97.4 98 Laboratory Data CBC/BMP Laboratory Tests 04/30/19 06:46 Labs 24H Laboratory Tests 2 04/30/19 06:46: Immature Granulocyte % (Auto) , Monocytes # (Auto) , Nucleated Red Blood Cells % (auto) 0.2H, Neutrophils 54, Lymphocytes (Manual) 23, Monocytes (Manual) 20H, Metamyelocytes 1H, Myelocytes 1H, Atypical Lymphocytes 1, Polychromasia 1+, Anisocytosis 1+, Macrocytosis 1+, Toxic Vacuolation 1+, Platelet Estimate DECREASED, Anion Gap 7L, Glomerular Filtration Rate 40.8, Calcium Level 6.7L Microbiology Microbiology 04/28/19 Respiratory Virus Panel (PCR) (MARIA LUISA) - Final, Complete Current Medications Current Medications Current Medications Medications (Trade) Dose Ordered Sig/Ady Route PRN Reason Start Time Stop Time Status Last Admin Dose Admin Acetaminophen (Tylenol Tab) 1,000 mg TID PO 04/14/19 21:00 04/30/19 09:08 Albuterol/ Ipratropium (Duoneb (Ipr 0.5mg/Alb 2.5mg)) 3 ml RQID NEB 04/14/19 20:00 04/28/19 15:19 Allopurinol (Zyloprim) 100 mg DAILY PO 04/15/19 09:00 04/30/19 09:08 Amiodarone HCl (Pacerone, Cordarone) 200 mg DAILY PO 04/15/19 09:00 04/30/19 09:08 Apixaban (Eliquis) 5 mg BID PO 04/14/19 21:00 04/30/19 09:08 Bisacodyl (Dulcolax Tab) 5 mg DAILY PO 04/16/19 09:00 04/18/19 09:46 Bisacodyl (Dulcolax Tab) 5 mg DAILYPRN PRN PO CONSTIPATION 04/14/19 17:00 Budesonide/ Formoterol Fumarate (Symbicort 80/ 4.5mcg) 2 puff BID INH 04/14/19 21:00 04/30/19 08:11 Calcitriol (Rocaltrol) 0.5 mcg BID PO 04/23/19 09:00 04/23/19 11:05 DC 04/23/19 09:01 Calcitriol (Rocaltrol) 0.5 mcg DAILY PO 04/24/19 09:00 04/30/19 09:08 Calcitriol (Rocaltrol) 0.5 mcg DAILY PO 04/15/19 09:00 04/23/19 07:44 DC 04/22/19 09:36 Calcium Carbonate (Tums) 500 mg BID PRN PO INDIGESTION 04/18/19 14:45 04/23/19 09:26 DC 04/18/19 18:08 Calcium/Vitamin D (Oscal D) 1,000 mg DAILY PO 04/21/19 09:00 04/23/19 07:44 DC 04/22/19 09:36 Calcium/Vitamin D (Oscal D) 1,000 mg DAILY PO 04/24/19 09:00 04/28/19 09:07 DC 04/28/19 08:20 Calcium/Vitamin D (Oscal D) 2,000 mg DAILY PO 04/23/19 09:00 04/23/19 11:05 DC 04/23/19 09:02 Diatrizoate Meglum/ Diatrizoate Sod (Gastrografin) 10 ml Q30M PO 04/29/19 12:30 04/29/19 13:01 DC 04/29/19 12:48 Docusate Sodium (Colace) 100 mg BID PO 04/14/19 21:00 04/29/19 21:50 Ferrous Gluconate (Fergon) 324 mg BID PO 04/14/19 21:00 04/14/19 18:57 DC Ferrous Sulfate (Ferrous Sulfate) 325 mg BID PO 04/14/19 21:00 04/30/19 09:08 Folic Acid (Folic Acid) 1 mg DAILY PO 04/15/19 09:00 04/30/19 09:08 Fosfomycin Tromethamine (Monurol) 3 gm Q7D PO 04/15/19 21:00 04/29/19 21:49 Furosemide (LASIX injection) 20 mg BID@,17 IV 04/15/19 17:00 04/21/19 19:00 DC 04/21/19 17:36 Furosemide (Lasix) 20 mg BID@, PO 04/22/19 09:00 04/24/19 09:20 DC 04/23/19 16:48 Furosemide (Lasix) 40 mg BID@ PO 04/24/19 09:00 04/27/19 07:40 DC 04/26/19 16:55 Furosemide (Lasix) 40 mg DAILY PO 04/27/19 09:00 04/28/19 07:56 DC 04/27/19 11:25 Gabapentin (Neurontin) 100 mg BID PO 04/23/19 09:00 04/24/19 09:25 DC 04/23/19 20:31 Gabapentin (Neurontin) 200 mg BID PO 04/24/19 09:00 04/28/19 09:07 DC 04/28/19 08:19 Guaifenesin (Robitussin Tab) 400 mg TID PO 04/17/19 16:00 04/30/19 09:09 Levalbuterol HCl (Xopenex Neb) 1.25 mg Q6HP PRN INH SOB/WHEEZING 04/14/19 17:00 04/23/19 09:26 DC 04/14/19 22:31 Levothyroxine Sodium (Synthroid) 137 mcg DAILY@06 PO 04/15/19 06:00 04/30/19 06:12 Lidocaine (Lidoderm Patch) 1 patch DAILY TD 04/21/19 09:00 04/30/19 09:04 Magnesium Hydroxide (Milk Of Magnesia) 30 ml DAILYPRN PRN PO CONSTIPATION 04/14/19 17:00 04/16/19 10:14 Menthol/Methyl Salicylate (Bengay Cream) 1 dose TID TOP 04/27/19 09:00 04/30/19 09:10 Meropenem 1 gm/IV Miscellaneous Supplies 50 ml @ 100 mls/hr Q12H IV 04/30/19 09:45 05/07/19 09:44 UNV Metoprolol Tartrate (Lopressor) 12.5 mg BID PO 04/14/19 21:00 04/15/19 12:36 DC 04/15/19 09:51 Metoprolol Tartrate (Lopressor) 12.5 mg BID PO 04/15/19 21:00 04/30/19 09:07 Miscellaneous (Unresolved Clarification Entry) SEE LABEL COMMENTS DAILY XX 04/27/19 09:00 04/27/19 08:33 DC Miscellaneous (Unresolved Clarification Entry) SEE LABEL COMMENTS DAILY XX 04/14/19 09:00 04/15/19 12:43 DC Miscellaneous (Unresolved Clarification Entry) SEE LABEL COMMENTS DAILY XX 04/20/19 09:00 04/21/19 08:39 DC Nitrofurantoin Monoh/Nitrofur Macro (Macrobid) 100 mg DAILY PO 04/15/19 09:00 04/15/19 11:03 DC Non-Formulary Medication ( See Comment Field Below ) REMOVE LIDODERM PATCH DAILY@21 XX 04/21/19 21:00 04/29/19 21:56 Ondansetron HCl (Zofran Odt) 4 mg Q6HP PRN PO NAUSEA OR VOMITING 04/30/19 09:45 Ondansetron HCl (Zofran) 4 mg Q6HP PRN PO NAUSEA 04/14/19 17:00 04/30/19 09:36 DC 04/28/19 09:32 Oxycodone HCl (Roxicodone, Oxyir) 2.5 mg TID@0700,1200,1700 PO 04/28/19 12:00 04/30/19 06:13 Oxycodone HCl (Roxicodone, Oxyir) 5 mg Q4HP PRN PO PAIN 04/14/19 17:00 04/23/19 09:24 DC 04/23/19 06:05 Oxycodone HCl (Roxicodone, Oxyir) 5 mg TID@0700,1200,1700 PO 04/23/19 12:00 04/28/19 09:07 DC 04/28/19 06:13 Pantoprazole Sodium (Protonix) 40 mg BID PO 04/14/19 21:00 04/16/19 09:33 DC 04/16/19 08:17 Pantoprazole Sodium (Protonix) 40 mg DAILY PO 04/22/19 09:00 04/30/19 09:08 Piperacillin Sod/ Tazobactam Sod 3.375 gm/Dextrose 50 ml @ 50 mls/hr Q6H IV 04/29/19 18:00 04/30/19 09:35 DC 04/30/19 06:13 Potassium Chloride/Sodium Chloride 1,000 ml @ 80 mls/hr [id number] IV 04/28/19 12:00 04/29/19 00:29 DC 04/28/19 15:57 Potassium Chloride (Micro-K Extencaps) 20 meq DAILY PO 04/17/19 09:00 04/17/19 10:04 DC Potassium Chloride (Micro-K Extencaps) 20 meq Q48H PO 04/19/19 09:00 04/17/19 10:59 DC Potassium Chloride (Micro-K Extencaps) 40 meq DAILY PO 04/18/19 09:00 04/22/19 10:28 DC 04/22/19 09:36 Potassium Chloride (Micro-K Extencaps) 40 meq Q8H PO 04/17/19 08:00 04/17/19 10:04 DC 04/17/19 09:33 Saliva Substitute (Mouthkote) 2 sprays QID MT 04/15/19 13:00 04/30/19 09:09 Senna (Senokot) 1 tab QHS PO 04/14/19 21:00 04/29/19 21:50 Simvastatin (Zocor) 20 mg DAILY PO 04/15/19 09:00 04/30/19 09:08 Spironolactone (Aldactone) 25 mg QAM PO 04/15/19 09:00 04/28/19 10:46 DC 04/27/19 09:05 Sucralfate (Carafate) 1 gm ACHS PO 04/16/19 12:00 04/16/19 11:33 DC Thiamine HCl (Thiamine HCl) 100 mg DAILY PO 04/15/19 09:00 04/30/19 09:08 Tiotropium [place] (Spiriva Handihaler) 1 inhalation DAILY@08 INH 04/15/19 08:00 04/30/19 08:11 Trazodone HCl (Desyrel) 25 mg Q6H PRN PO AGITATION 04/14/19 18:45 04/24/19 11:17 DC Trazodone HCl (Desyrel) 25 mg QHS PO 04/14/19 21:00 04/24/19 11:17 DC 04/23/19 20:30 Trazodone HCl (Desyrel) 25 mg QHS PRN PO INSOMNIA 04/24/19 21:00 04/24/19 20:35 Verapamil HCl (Isoptin-Sr, Calan Sr) 120 mg BID PO 04/15/19 21:00 04/27/19 09:04 CHANDANA BRICEÑO MD Apr 30, 2019 10:00
[2019-04-30] MEDS: ONDANSETRON 4 MG ORAL DISINTEGRATING TAB (Q0162 PER 1MG) PO PRN (10:37)
[2019-04-30] MEDS: MEROPENEM INJ 1 GM in IV 1 EA IV SCH ×2 (10:37→21:01)
--- NOTE | 2019-04-30 11:07 | IPNPDOC ---
Subjective Date Seen The patient was seen on 04/30/19. Subjective Chief Complaint/HPI Ms Fernandez is a 73 year old female admitted to the ARU with a L comminuted fracture of the left hip after she slipped and fell on ice (04-10-19). Objective Physical Examination General Exam: Positive: Alert, Cooperative, Mild Distress Eye Exam: Positive: Conjunctiva & lids normal ENT Exam: Positive: Atraumatic, Mucous membr. moist/pink Chest Exam: Positive: Wheezing (generalized ) Heart Exam: Positive: Rate Normal, Regular Rhythm, Normal S1, Normal S2; Negative: Murmurs, Rubs Abdomen Exam: Positive: Soft, Mass (?LUQ), Other (Large, rounded ); Negative: Tenderness Extremity Exam: Positive: Edema (mild b/l pedal edema ) Skin Exam: Positive: Other skin issue (Bruising along both arms ) Neuro Exam: Positive: Normal Speech Psych Exam: Positive: Mood NL Assessment /Plan Problems (1) Congestive heart failure Status: Chronic Response to Treatment: Stable Discussed With: Patient Problem Text: Check patient BP prior to administering Lasix to 20mg IV BID; nu rsing staff will alert medical staff if systolic BP <100 and diastolic BP <50 . Monitor patient's urine output for a total daily goal of 1L voided urine. BMP to be repeated 04/17/19. Patient is to be weighed daily (2) Pedal edema Status: Chronic Response to Treatment: Improving Discussed With: Patient Problem Text: No DVT per venous USG of LLE. (3) Dyspnea Status: Acute Response to Treatment: Improving Discussed With: Patient (4) COPD (chronic obstructive pulmonary disease) Onset Date: 03/09/2014 Status: Chronic Response to Treatment: Stable Problem Text: Patient will continue home medications; DuoNeb every 4hrs per Rehab. (5) Hip fracture, left Status: Acute Response to Treatment: Stable Discussed With: Patient Plan/VTE VTE Prophylaxis Ordered?: Yes (Patient currently takes Eliquis 5mg tab twice per day) Plan Diet: Continue Current Activity: Continue Current VS, I&O, 24H, Fishbone Vital Signs/I&O Vital Signs Date Time Temp Pulse Resp B/P (MAP) Pulse Ox O2 Delivery O2 Flow Rate FiO2 04/30/19 09:07 113 150/72 04/30/19 07:19 18 04/30/19 06:13 Room Air 04/30/19 06:00 97.4 98 I&O- Last 24 Hours up to 6 AM 04/30/19 06:00 Intake Total 1150 ml Output Total 500 ml Balance 650 ml Laboratory Data 24H LABS Laboratory Tests 2 04/30/19 06:46: Immature Granulocyte % (Auto) , Monocytes # (Auto) , Nucleated Red Blood Cells % (auto) 0.2H, Neutrophils 54, Lymphocytes (Manual) 23, Monocytes (Manual) 20H, Metamyelocytes 1H, Myelocytes 1H, Atypical Lymphocytes 1, Polychromasia 1+, Anisocytosis 1+, Macrocytosis 1+, Toxic Vacuolation 1+, Platelet Estimate DECREASED, Anion Gap 7L, Glomerular Filtration Rate 40.8, Calcium Level 6.7L CBC/BMP Laboratory Tests 04/30/19 06:46 Microbiology Microbiology 04/28/19 Respiratory Virus Panel (PCR) (MARIA LUISA) - Final, Complete ROSALBA QUEEN PA-C Apr 30, 2019 11:07
[2019-04-30] MEDS ORDERED: LIDO5TD TD (13:54)
[2019-04-30] MEDS ORDERED: CALC1CAP31 PO (13:54)
[2019-04-30] MEDS ORDERED: FOLI1TAB11 PO (13:54)
[2019-04-30] MEDS ORDERED: MOM30SS2 PO (13:54)
[2019-04-30] MEDS ORDERED: IPRA0.00 NEB (13:54)
[2019-04-30] MEDS ORDERED: SENN18TA PO (13:54)
[2019-04-30] MEDS ORDERED: AMIO200T PO (13:54)
[2019-04-30] MEDS ORDERED: FERR325T18 PO (13:54)
[2019-04-30] MEDS ORDERED: TIOT18INH INH (13:54)
[2019-04-30] MEDS ORDERED: THIA100TA PO (13:54)
[2019-04-30] MEDS ORDERED: ALLO10TA PO (13:54)
[2019-04-30] MEDS ORDERED: PANT40TA3 PO (13:54)
[2019-04-30] MEDS ORDERED: SYMB80INH INH (13:54)
[2019-04-30] MEDS ORDERED: SIMV20TA22 PO (13:54)
[2019-04-30] MEDS ORDERED: METO1TAB87 PO (13:54)
[2019-04-30] MEDS ORDERED: VERA12TASA PO (13:54)
[2019-04-30] MEDS ORDERED: MOUKOT60 MT (13:54)
[2019-04-30] MEDS ORDERED: ELIQ5TAB PO (13:54)
[2019-04-30] MEDS ORDERED: SYNT137T7 PO (13:54)
[2019-04-30] MEDS ORDERED: MUSCCRE9 TOP (13:54)
[2019-04-30] MEDS ORDERED: ACET-683 PO (13:54)
[2019-04-30] MEDS ORDERED: Fosfomycin Tromethamine PO (13:54)
[2019-04-30] MEDS ORDERED: OXYC-517 PO (13:54)
[2019-04-30] MEDS ORDERED: DOCU100C16 PO (13:54)
[2019-04-30] MEDS ORDERED: TRAZ-252 PO (13:54)
[2019-04-30] MEDS ORDERED: GUAI20TA PO (13:54)
[2019-04-30 14:00] VITALS: BP 98/62
--- NOTE | 2019-04-30 16:34 | IPNPDOC ---
Subjective Date Seen The patient was seen on 04/30/19. Subjective Chief Complaint/HPI Ms Fernandez is a 73 year old female admitted to the ARU with a L comminuted fracture of the left hip after she slipped and fell on ice (04-10-19). Ms Fernandez is seen this morning sitting up on the chair with her daughters present. Discussed results of the CT lung and abdomen/pelvis. Mrs. Fernandez is keen to go home on Saturday. She continues to cough and threw up after taking all of her PO medications this a.m. on an empty stomach. She would like some Ond[place]ron to help with that. Constitutional: Denies: Chills, Fever, Night Sweats Eyes: Denies: Pain Skin: Denies: Rash Pulmonary: Reports: Cough; Denies: Dyspnea Cardiovascular: Denies: Chest Pain, Palpitations Gastrointestinal: Denies: Abdominal Pain Musculoskeletal: Reports: Back Pain Objective Physical Examination General Exam: Positive: Alert, Cooperative, Mild Distress Eye Exam: Positive: Conjunctiva & lids normal ENT Exam: Positive: Atraumatic, Mucous membr. moist/pink Chest Exam: Positive: Wheezing (generalized ) Heart Exam: Positive: Rate Normal, Regular Rhythm, Normal S1, Normal S2; Negative: Murmurs, Rubs Abdomen Exam: Positive: Soft, Mass (?LUQ), Other (Large, rounded ); Negative: Tenderness Extremity Exam: Positive: Edema (mild b/l pedal edema ) Skin Exam: Positive: Other skin issue (Bruising along both arms ) Neuro Exam: Positive: Normal Speech Psych Exam: Positive: Mood NL Assessment /Plan Assessment Ms Fernandez is a 73 year old female with PMH of COPD, paroxysmal Afib, Hypertension, Hyperlipidemia, Reflux esophagitis ,Hiatal hernia, Gastritis, Hypothyroid, gout, osteoporosis, Benign esophageal stenosis, diverticulosis, internal hemorrhoids, iron def anemia, Pulmonary nodule stable, CKD, CHF with preserved EF, COPD, Chronic thrombocytopenia with splenomegaly since 2012 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 admitted to the ARU after surgical fixation of a Left comminuted fracture of the left hip after she slipped and fell on ice (04-10-19). She had a big hematoma as she was on Eliquis as an outpatient. Patient required 5 units of PRBCs for acute blood loss anemia and underwent and ORIF. Postoperatively patient became dehydrated due to poor oral intake and suffered an FREDY, requiring IVF for hydration. Since being in rehab, Ms. Fernandez further developed LLE 2+ pitting edema. Dr. Tay ordered a venous USG of the extremity. Results: No DVT. Pedal edema improved with PT. Patient was noted to have dropping platelets while in ARU. She was also noted to have rising creatinine. Currently she also has rising WBC. She remains afebrile. CXR worse than before so CT chest was done showed moderate right effusion with adjacent right lung infiltrate predominantly involving the right lower lobe. Tiny left effusion. Minor left lower lobe infiltrate. Left hip Fracture s/p ORIF on management as per ARU. Pneumonia with effusion right > left possibility of HCAP Zosyn started IR guided drain of the effusion scheduled. per IR - hold Eliquis 2 days prior and 2 days post procedure. Hold Saturday and Saturday, procedure Saturday. Dr. Tay recommends Tx to ICU for above FREDY on CKD stage 3 with secondary hyperparathyroidism. mildly improved today due to intravascular volume depletion as noted by rise in Hb from recent baseline, rise in BUN/cr given some IVF and diuretics held. Pedal edema due to possibly venous stasis, no DVT. contributed to by the very low albumin and acute on chronic anemia recently. improving Acute on chronic anemia this is due to acute blood loss into the hematoma after the fracture chronic anemia is due to Iron deficiency and some degree of anemia of chronic disease. Now hh stable in the 8 to 9 range. Continue iron. Chronic Thrombocytopenia since 2013 with massive splenomegaly with left upper quadrant mass. Splenomegaly in CT abdomen from 2013 This was discussed with Dr Wagoner patient has ITP with iron deficiency anemia. Bone was done this year which was normocellular and no hematological malignancy seen. No MDS. ITP which during the acute events with bleeding Now has improved. Diastolic Congestive heart failure Now seems to be euvolemic though has edema and pleural effusion [place] [address] on 04/16 to 1500. COPD continue home meds, symbicort in place of breo, spiriva and duonebs. Paroxysmal Afib continue metoprolol, amiodarone, eliquis H/o Hypertension now with episodes of hypotension antihypertensives metoprolol and verapamil on high hold parameters. and diuretics stopped. possibly due to intravascular depletion. Gastritis/reflux/hiatal hernia continue pantoprazole Hypothyroid continue synthroid Gout continue allopurinol Monocytosis this is new patient did have a bone marrow biopsy earlier this year which was negative for any hematological malignancy. follow up Dr aWgoner Recurrent UTIs on suppressive prophylaxis with Fosfomycin. Plan/VTE VTE Prophylaxis Ordered?: Yes (Patient currently takes Eliquis 5mg tab twice per day) Plan Diet: Continue Current Activity: Continue Current VS, I&O, 24H, Fishbone Vital Signs/I&O Vital Signs Date Time Temp Pulse Resp B/P (MAP) Pulse Ox O2 Delivery O2 Flow Rate FiO2 04/30/19 14:00 97.4 107 16 98/62 (74) 96 Room Air I&O- Last 24 Hours up to 6 AM 04/30/19 06:00 Intake Total 1150 ml Output Total 500 ml Balance 650 ml Laboratory Data 24H LABS Laboratory Tests 2 04/30/19 06:46: Immature Granulocyte % (Auto) , Monocytes # (Auto) , Nucleated Red Blood Cells % (auto) 0.2H, Neutrophils 54, Lymphocytes (Manual) 23, Monocytes (Manual) 20H, Metamyelocytes 1H, Myelocytes 1H, Atypical Lymphocytes 1, Polychromasia 1+, Anisocytosis 1+, Macrocytosis 1+, Toxic Vacuolation 1+, Platelet Estimate DECREASED, Anion Gap 7L, Glomerular Filtration Rate 40.8, Calcium Level 6.7L, Lactate Dehydrogenase 264H 04/30/19 11:13: Bedside Glucose (Misc Panel) 79L CBC/BMP Laboratory Tests 04/30/19 06:46 Microbiology Microbiology 04/28/19 Respiratory Virus Panel (PCR) (MARIA LUISA) - Final, Complete ROSALBA QUEEN PA-C Apr 30, 2019 16:34
[2019-04-30 20:00] VITALS: BP 106/56
[2019-04-30] MEDS: **NOTE PATIENT COMMENT** MISC XX SCH (20:32)
[2019-04-30] MEDS: SENNA 8.6 MG TAB (SENOKOT) PO SCH (20:54)
[2019-05-01 04:30] VITALS: O2SAT 96
[2019-05-01] MEDS: LEVOTHYROXINE 137MCG TABLET (0.137MG) PO SCH (05:01)
[2019-05-01 05:11] VITALS: BP 111/54
[2019-05-01] MEDS: oxyCODONE 5MG TAB PO SCH ×2 (06:35→12:12)
[2019-05-01] MEDS ORDERED: LEVALBUTEROL 1.25 MG/0.5 ML CONCENTRATE NEB INH PRN (06:45)
[2019-05-01 06:47] LABS: HEMATOCRIT 35.7 % (36.0-47.0); HEMOGLOBIN 9.9 g/dl (12.0-15.5); MEAN CORPUSCULAR HEMOGLOBIN 27.9 pg (27.0-33.0); MEAN CORPUSCULAR HGB CONC 27.7 g/dl (32.0-36.5); MEAN CORPUSCULAR VOLUME 100.6 fl (80.0-96.0); PLATELET COUNT, AUTOMATED 105 10^3/uL (150-450); RED BLOOD COUNT 3.55 10^6/uL (4.00-5.40); WHITE BLOOD COUNT 9.4 10^3/uL (4.0-10.0)
[2019-05-01 07:06] LABS: CALCIUM LEVEL 6.4 MG/DL (8.8-10.2); CREATININE FOR GFR 1.18 MG/DL (0.55-1.30); GLOMERULAR FILTRATION RATE 47.7 (>39); POTASSIUM SERUM 3.9 MEQ/L (3.5-5.1)
[2019-05-01 07:13] LABS: ANISOCYTOSIS 2+; ATYPICAL LYMPH 1 % (0-5); GIANT PLATELETS 1+; LYMPHOCYTES 13 % (16-44); METAMYELOCYTES 1 % (0-0); MONOCYTES 21 % (0-5); MYELOCYTES 1 % (0-0); NEUTROPHILS 63 % (28-66); PLATELET ESTIMATE NORMAL (NORMAL); POLYCHROMASIA 1+
[2019-05-01 07:15] LABS: TOXIC VACUOLATION 1+
[2019-05-01] MEDS: TIOTROPIUM INHALER/CAPSULE (SPIRIVA) INH SCH (07:16)
[2019-05-01] MEDS: IPRATROPIUM 0.5MG/ALBUTEROL 2.5MG INH SOL UD 3ML (DUONEB)(J7620) NEB SCH ×2 (07:16→11:12)
[2019-05-01] MEDS: SYMBICORT 80/4.5MCG INHALER 6GM INH SCH (07:16)
[2019-05-01] MEDS: APIXABAN 5 MG TAB (ELIQUIS) PO SCH ×2 (07:24→09:34)
[2019-05-01] MEDS: DOCUSATE SODIUM 100 MG CAP PO SCH (09:00)
[2019-05-01] MEDS: VERAPAMIL 120 MG SR TAB PO SCH (09:00)
[2019-05-01] MEDS: LIDOCAINE 5% (LIDODERM) PATCH TD SCH (09:00)
[2019-05-01] MEDS: ANALGESIC BALM CRM 120 GM TOP SCH (09:00)
[2019-05-01] MEDS: BISACODYL 5 MG TAB PO SCH (09:00)
[2019-05-01] MEDS: FERROUS SULFATE 325MG TAB PO SCH (09:33)
[2019-05-01] MEDS: THIAMINE 100 MG TAB PO SCH (09:33)
[2019-05-01] MEDS: SIMVASTATIN 20 MG TAB PO SCH (09:33)
[2019-05-01] MEDS: guaiFENesin 200 MG TAB PO SCH (09:33)
[2019-05-01] MEDS: AMIODARONE 200 MG TAB (PACERONE) PO SCH (09:33)
[2019-05-01] MEDS: ACETAMINOPHEN 500 MG TAB PO SCH (09:34)
[2019-05-01] MEDS: ONDANSETRON 4 MG ORAL DISINTEGRATING TAB (Q0162 PER 1MG) PO PRN (09:34)
[2019-05-01] MEDS: allopurinoL 100 MG TAB PO SCH (09:34)
[2019-05-01] MEDS: CALCITRIOL 0.25 MCG CAP (S0169) PO SCH (09:34)
[2019-05-01] MEDS: SALIVA SUBSTITUTE(MOUTHKOTE) BTL MT SCH ×2 (09:35→12:12)
[2019-05-01] MEDS: FOLIC ACID 1 MG TAB PO SCH (09:35)
[2019-05-01] MEDS: PANTOPRAZOLE 40MG TAB (PROTONIX) PO SCH (09:35)
[2019-05-01 09:36] VITALS: BP 131/62
[2019-05-01] MEDS: METOPROLOL TART 12.5 MG PER 1/2 TAB PO SCH (09:36)
--- NOTE | 2019-05-01 09:37 | IPNPDOC ---
PM&R Progress Note DATE OF SERVICE: May 01, 2019 Respiratory Therapy Instructor Progress Note Subjective: Patient understands she will be transferred to inpatient for a thoracentesis. Patient seen this morning REVIEW OF SYSTEMS: The following is a completed review of systems and has been reviewed. Review of systems otherwise unremarkable. PAIN: Patient self reports no pain at rest EYES: No recent vision changes EARS, NOSE, & THROAT: denies throat pain, (-) dysphagia, or rhinorrhea CARDIOVASCULAR: Denies chest pain or palpitations, +right sided sternal pain PULMONARY:denies shortness of breath GASTROINTESTINAL: Denies constipation/diarrhea GENITOURINARY: denies dysuria MUSCULOSKELETAL: left hip fracture NEUROLOGICAL:no tremor or seizure activity HEMATOLOGICAL: +easy bruising SKIN: +left hip incision and scattered ecchymosis PSYCHIATRIC: +confused (resolved) All other review of systems found to be negative. PHYSICAL EXAMINATION: VITAL SIGNS: Please see below. GENERAL: Pleasant and cooperative. No acute distress. HEENT: PERRL. Extraocular movements intact. Clear conjunctiva CARDIOVASCULAR: Irregular rate and rhythm. No murmurs, rubs, or gallops LUNGS: +CTA throughout, no crackles or wheeze ABDOMEN: Soft, nontender, mildly distended. Positive bowel sounds. Normal active bowel sounds NEUROLOGICAL: Alert and oriented x3, appeared confused, but able to follow commands Cranial nerves II through XII grossly intact. Sensation grossly intact including 1st web space on left EXTREMITIES: 5-\\5 strength bilateral upper extremities. 4\\5 strength right lower extremity. 4/5 strength in left ankle DF, EHL, and PF (limited due to surgery) +LLE edema and RLE edema (improving) (-) Homans (+) TTP bilat lower lumbar paraspinals (+) TTP right sternum SKIN: left hip and groin with ecchymosis, scattered ecchymosis bilat UE, left hip incision with edema and ecchymosis and scant serosanguineous drainage (improving) ASSESSMENT:73-year-old F with past medical history of Afib who presents status post fall with left hip fracture PLAN: 1. 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 Ortho: s/p left hip ORIF, ortho consulted 3. Neuro: patient with delirium and agitation-resolved 4. Cardiac: hx of Afib c/u eliquis, amiodarone, metoprolol, c/u verapamil- medicine consulted to assist in management -recent ECHO showing grade 1 diastolic CHF -acute CHF exacerbation which has resolved, s/p multi-day course of IV lasix followed by oral currently on hold in setting of FREDY - spironolactone 25mg daily on hold c/u to monitor -c/u 1500cc fluid restrict and no salt diet- medicine recs appreciated -daily weight ordered 5. Resp: Hx of COPD, c/u Duonebs standing, monitor for infection -encourage incentive spirometry -c/u Symbicort -resp panel negative -CXR 04-29-19, "New right-sided pleural effusion and right lower lobe air space consolidation" -CT Chest "Moderate right effusion with adjacent right lung infiltrate predominantly involving the right lower lobe. Tiny left effusion. Minor left lower lobe infiltrate.", started on Meropenem, plan for thoracentesis 05-04-19- medicine recs appreciated, leukocytosis resolved 6. Renal: FREDY on CKD improving- renal consulted, s/p IVF, recs appreciated, deferring to renal for fluid management -c/u calcitriol home dose 7. Heme: patient with significant post-op anemia s/p 4 units rbcs on inpatient with large left groin hematoma improving, FOBT negative -patient with hx of thrombocytopenia-stable c/u to monitor while on protonix -no further drainage from surgical incision 8. DVT ppx: c/u Eliquis 5 BID for afib -Doppler negative for proximal LLE DVT x2 9. Pain: Tylenol, c/u oxycodone dosing to 2.5 standing, d/c'd gabapentin as may be contributing to overall lethargy, c/u menthol salicylate rub for low back pain and to sternum for costochondritis which is improving 10. GI px: will restart protonix as patient reports this helps with her dyspepsia and monitor platelets-starting to trend back down 11. : hx of recurrent UTIs on macrobid ppx, however given Progress Developer function switched to fosfomycin 3g q7days as off-label prophylactic dosing -no dysuria reported, leukocytosis resolved 10. Dispo: will d/c to med-surg with telemetry 05-02-19 for thoracentesis Allergies Coded Allergies: tetracycline (Verified Allergy, Severe, swelling, peeling of the tongue, 02/19/19) zolpidem (Verified Allergy, Severe, respiratory distress, 02/19/19) Sulfa (Sulfonamide Antibiotics) (Verified Allergy, Intermediate, hives, 02/19/19) Penicillins (Verified Adverse Reaction, Intermediate, N/V, 02/19/19) tramadol (Verified Adverse Reaction, Intermediate, N/V, 02/19/19) Vital Signs Vital Signs Date Time Temp Pulse Resp B/P (MAP) Pulse Ox O2 Delivery O2 Flow Rate FiO2 05/01/19 07:35 16 05/01/19 07:17 Nasal Cannula 2.0 05/01/19 05:11 97.2 83 111/54 (73) 94 Laboratory Data CBC/BMP Laboratory Tests 05/01/19 06:30 Labs 24H Laboratory Tests 2 04/30/19 11:13: Bedside Glucose (Misc Panel) 79L 05/01/19 06:30: Immature Granulocyte % (Auto) , Monocytes # (Auto) , Nucleated Red Blood Cells % (auto) 0.5H, Neutrophils 63, Lymphocytes (Manual) 13L, Monocytes (Manual) 21H, Metamyelocytes 1H, Myelocytes 1H, Atypical Lymphocytes 1, Polychromasia 1+, Anisocytosis 2+, Toxic Vacuolation 1+, Giant Platelets 1+, Platelet Estimate NORMAL, Anion Gap 12, Glomerular Filtration Rate 47.7, Calcium Level 6.4L Microbiology Microbiology 04/28/19 Respiratory Virus Panel (PCR) (MAR[facility]ISA) - Final, Complete Current Medications Current Medications Current Medications Medications (Trade) Dose Ordered Sig/Ady Route PRN Reason Start Time Stop Time Status Last Admin Dose Admin Acetaminophen (Tylenol Tab) 1,000 mg TID PO 04/14/19 21:00 04/30/19 20:54 Albuterol/ Ipratropium (Duoneb (Ipr 0.5mg/Alb 2.5mg)) 3 ml RQID NEB 04/14/19 20:00 04/28/19 15:19 Allopurinol (Zyloprim) 100 mg DAILY PO 04/15/19 09:00 04/30/19 09:08 Amiodarone HCl (Pacerone, Cordarone) 200 mg DAILY PO 04/15/19 09:00 04/30/19 09:08 Apixaban (Eliquis) 5 mg BID PO 04/14/19 21:00 04/30/19 20:54 Bisacodyl (Dulcolax Tab) 5 mg DAILY PO 04/16/19 09:00 04/18/19 09:46 Bisacodyl (Dulcolax Tab) 5 mg DAILYPRN PRN PO CONSTIPATION 04/14/19 17:00 Budesonide/ Formoterol Fumarate (Symbicort 80/ 4.5mcg) 2 puff BID INH 04/14/19 21:00 05/01/19 07:16 Calcitriol (Rocaltrol) 0.5 mcg BID PO 04/23/19 09:00 04/23/19 11:05 DC 04/23/19 09:01 Calcitriol (Rocaltrol) 0.5 mcg DAILY PO 04/24/19 09:00 04/30/19 09:08 Calcitriol (Rocaltrol) 0.5 mcg DAILY PO 04/15/19 09:00 04/23/19 07:44 DC 04/22/19 09:36 Calcium Carbonate (Tums) 500 mg BID PRN PO INDIGESTION 04/18/19 14:45 04/23/19 09:26 DC 04/18/19 18:08 Calcium/Vitamin D (Oscal D) 1,000 mg DAILY PO 04/21/19 09:00 04/23/19 07:44 DC 04/22/19 09:36 Calcium/Vitamin D (Oscal D) 1,000 mg DAILY PO 04/24/19 09:00 04/28/19 09:07 DC 04/28/19 08:20 Calcium/Vitamin D (Oscal D) 2,000 mg DAILY PO 04/23/19 09:00 04/23/19 11:05 DC 04/23/19 09:02 Diatrizoate Meglum/ Diatrizoate Sod (Gastrografin) 10 ml Q30M PO 04/29/19 12:30 04/29/19 13:01 DC 04/29/19 12:48 Docusate Sodium (Colace) 100 mg BID PO 04/14/19 21:00 04/29/19 21:50 Ferrous Gluconate (Fergon) 324 mg BID PO 04/14/19 21:00 04/14/19 18:57 DC Ferrous Sulfate (Ferrous Sulfate) 325 mg BID PO 04/14/19 21:00 04/30/19 20:54 Folic Acid (Folic Acid) 1 mg DAILY PO 04/15/19 09:00 04/30/19 09:08 Fosfomycin Tromethamine (Monurol) 3 gm Q7D PO 04/15/19 21:00 04/29/19 21:49 Furosemide (LASIX injection) 20 mg BID@17 IV 04/15/19 17:00 04/21/19 19:00 DC 04/21/19 17:36 Furosemide (Lasix) 20 mg BID@ PO 04/22/19 09:00 04/24/19 09:20 DC 04/23/19 16:48 Furosemide (Lasix) 40 mg BID@, PO 04/24/19 09:00 04/27/19 07:40 DC 04/26/19 16:55 Furosemide (Lasix) 40 mg DAILY PO 04/27/19 09:00 04/28/19 07:56 DC 04/27/19 11:25 Gabapentin (Neurontin) 100 mg BID PO 04/23/19 09:00 04/24/19 09:25 DC 04/23/19 20:31 Gabapentin (Neurontin) 200 mg BID PO 04/24/19 09:00 04/28/19 09:07 DC 04/28/19 08:19 Guaifenesin (Robitussin Tab) 400 mg TID PO 04/17/19 16:00 04/30/19 20:54 Levalbuterol HCl (Xopenex Neb) 1.25 mg Q6HP PRN INH SOB/WHEEZING 05/01/19 06:45 Levalbuterol HCl (Xopenex Neb) 1.25 mg Q6HP PRN INH SOB/WHEEZING 04/14/19 17:00 04/23/19 09:26 DC 04/14/19 22:31 Levothyroxine Sodium (Synthroid) 137 mcg DAILY@06 PO 04/15/19 06:00 05/01/19 05:01 Lidocaine (Lidoderm Patch) 1 patch DAILY TD 04/21/19 09:00 04/30/19 09:04 Magnesium Hydroxide (Milk Of Magnesia) 30 ml DAILYPRN PRN PO CONSTIPATION 04/14/19 17:00 04/16/19 10:14 Menthol/Methyl Salicylate (Bengay Cream) 1 dose TID TOP 04/27/19 09:00 04/30/19 21:02 Meropenem 1 gm/IV Miscellaneous Supplies 50 ml @ 100 mls/hr Q12H IV 04/30/19 10:00 05/07/19 09:59 04/30/19 21:01 Metoprolol Tartrate (Lopressor) 12.5 mg BID PO 04/14/19 21:00 04/15/19 12:36 DC 04/15/19 09:51 Metoprolol Tartrate (Lopressor) 12.5 mg BID PO 04/15/19 21:00 04/30/19 09:07 Miscellaneous (Unresolved Clarification Entry) SEE LABEL COMMENTS DAILY XX 04/27/19 09:00 04/27/19 08:33 DC Miscellaneous (Unresolved Clarification Entry) SEE LABEL COMMENTS DAILY XX 04/14/19 09:00 04/15/19 12:43 DC Miscellaneous (Unresolved Clarification Entry) SEE LABEL COMMENTS DAILY XX 04/20/19 09:00 04/21/19 08:39 DC Nitrofurantoin Monoh/Nitrofur Macro (Macrobid) 100 mg DAILY PO 04/15/19 09:00 04/15/19 11:03 DC Non-Formulary Medication ( See Comment Field Below ) REMOVE LIDODERM PATCH DAILY@21 XX 04/21/19 21:00 04/30/19 20:32 Ondansetron HCl (Zofran Odt) 4 mg Q6HP PRN PO NAUSEA OR VOMITING 04/30/19 09:45 04/30/19 10:37 Ondansetron HCl (Zofran) 4 mg Q6HP PRN PO NAUSEA 04/14/19 17:00 04/30/19 09:36 DC 04/28/19 09:32 Oxycodone HCl (Roxicodone, Oxyir) 2.5 mg TID@0700,1200,1700 PO 04/28/19 12:00 05/01/19 06:35 Oxycodone HCl (Roxicodone, Oxyir) 5 mg Q4HP PRN PO PAIN 04/14/19 17:00 04/23/19 09:24 DC 04/23/19 06:05 Oxycodone HCl (Roxicodone, Oxyir) 5 mg TID@0700,1200,1700 PO 04/23/19 12:00 04/28/19 09:07 DC 04/28/19 06:13 Pantoprazole Sodium (Protonix) 40 mg BID PO 04/14/19 21:00 04/16/19 09:33 DC 04/16/19 08:17 Pantoprazole Sodium (Protonix) 40 mg DAILY PO 04/22/19 09:00 04/30/19 09:08 Piperacillin Sod/ Tazobactam Sod 3.375 gm/Dextrose 50 ml @ 50 mls/hr Q6H IV 04/29/19 18:00 04/30/19 09:35 DC 04/30/19 06:13 Potassium Chloride/Sodium Chloride 1,000 ml @ 80 mls/hr [id number] IV 04/28/19 12:00 04/29/19 00:29 DC 04/28/19 15:57 Potassium Chloride (Micro-K Extencaps) 20 meq DAILY PO 04/17/19 09:00 04/17/19 10:04 DC Potassium Chloride (Micro-K Extencaps) 20 meq Q48H PO 04/19/19 09:00 04/17/19 10:59 DC Potassium Chloride (Micro-K Extencaps) 40 meq DAILY PO 04/18/19 09:00 04/22/19 10:28 DC 04/22/19 09:36 Potassium Chloride (Micro-K Extencaps) 40 meq Q8H PO 04/17/19 08:00 04/17/19 10:04 DC 04/17/19 09:33 Saliva Substitute (Mouthkote) 2 sprays QID MT 04/15/19 13:00 04/30/19 20:56 Senna (Senokot) 1 tab QHS PO 04/14/19 21:00 04/29/19 21:50 Simvastatin (Zocor) 20 mg DAILY PO 04/15/19 09:00 04/30/19 09:08 Spironolactone (Aldactone) 25 mg QAM PO 04/15/19 09:00 04/28/19 10:46 DC 04/27/19 09:05 Sucralfate (Carafate) 1 gm ACHS PO 04/16/19 12:00 04/16/19 11:33 DC Thiamine HCl (Thiamine HCl) 100 mg DAILY PO 04/15/19 09:00 04/30/19 09:08 Tiotropium [place] (Spiriva Handihaler) 1 inhalation DAILY@08 INH 04/15/19 08:00 05/01/19 07:16 Trazodone HCl (Desyrel) 25 mg Q6H PRN PO AGITATION 04/14/19 18:45 04/24/19 11:17 DC Trazodone HCl (Desyrel) 25 mg QHS PO 04/14/19 21:00 04/24/19 11:17 DC 04/23/19 20:30 Trazodone HCl (Desyrel) 25 mg QHS PRN PO INSOMNIA 04/24/19 21:00 04/24/19 20:35 Verapamil HCl (Isoptin-Sr, Calan Sr) 120 mg BID PO 04/15/19 21:00 04/27/19 09:04 CHANDANA BRICEÑO MD May 01, 2019 09:37
[2019-05-01] MEDS: MEROPENEM INJ 1 GM in IV 1 EA IV SCH (09:41)
[2019-05-01 10:09] VITALS: BP 120/60
[2019-05-01 14:47] VITALS: BP 128/59
--- NOTE | 2019-05-04 17:50 | PMRDS ---
DATE OF ADMISSION: 04/14/2019 DATE OF DISCHARGE: 05/01/2019 Hip fracture and pleural effusion with pneumonia. HISTORY OF PRESENT ILLNESS: This is a 73-year-old female with past medical history of chronic obstructive pulmonary disease (COPD), atrial fibrillation on Eliquis, probable congestive heart failure (CHF), hypertension, idiopathic thrombocytopenia purpura (ITP), hyperlipidemia, chronic urinary tract infection (UTI), chronic kidney disease (CKD), esophageal stenosis, who fell at home having slipped on ice and presented to [facility] Emergency Department (ED) on 04/10/[address] showed "acute comminuted fracture left femoral neck in intertrochanteric region with posterior displacement of the proximal femoral shaft relative to the femoral neck... Soft tissue hematoma surrounds the fracture site." She is evaluated by orthopedics who performed an ORIF on 04/12/2019 which she had a drop in hemoglobin requiring for blood transfusions. She had acute kidney injury (FREDY) requiring IVF and delirium thought to be due to anesthesia. She was evaluated by therapy and found to be well below her baseline in mobility and activities of daily living (ADLs) and deemed medically appropriate for discharge to ARU on 05/01/2019. On initial evaluation, the patient reported feeling short of breath lying flat. IVF that was running was discontinued. PAST MEDICAL HISTORY: As per history of present illness. HOSPITAL COURSE: The patient was admitted and enrolled in a comprehensive physical therapy (PT), occupational therapy (OT), speech and language pathology program. She received 24-hour nursing supervision and weekly team meetings were held to discuss her progress. The patient was placed on a fluid restriction and no salt diet in the setting of recently diagnosed congestive heart failure (CHF). The patient had a CHF exacerbation with elevated basic metabolic panels (BMPs) requiring IV Lasix dosing and then transitioned to oral Lasix. The patient developed acute kidney injury (FREDY) after which a renal consult was placed and she was given IV fluids. The patient then developed a left lower lobe and right-sided pneumonia and found to have a moderate right-sided effusion. She was started on meropenem and was planned for A thoracentesis on 05/04/2019. The patient was deemed medically and functionally stable to be discharged to [facility] for telemetry while her Eliquis is being held in preparation for thoracentesis. DISCHARGE MEDICATIONS: As per instructions. FUNCTIONAL HISTORY: On discharge, the patient was standby assist for functional transfers, able to ambulate 30 feet, standby assist. Thank you for this referral.
== END 2019-05-01 14:55 | disposition short-term general hospital (02) | DRG 559 ==
LOC: M PM&R 15:50
PROVIDERS: ADMIT Physical Medicine & Rehabilitation; ATTEND Physical Medicine & Rehabilitation
DX: S72.142D Displaced intertrochanteric fracture of left femur, subsequent encounter for closed fracture with routine healing (principal); I50.33 Acute on chronic diastolic (congestive) heart failure; J18.9 Pneumonia, unspecified organism; I13.0 Hypertensive heart and chronic kidney disease with heart failure and stage 1 through stage 4 chronic kidney disease, or unspecified chronic kidney disease; D69.3 Immune thrombocytopenic purpura; N39.0 Urinary tract infection, site not specified; N17.9 Acute kidney failure, unspecified; J90 Pleural effusion, not elsewhere classified; N25.81 Secondary hyperparathyroidism of renal origin; D62 Acute posthemorrhagic anemia; J44.0 Chronic obstructive pulmonary disease with (acute) lower respiratory infection; D63.8 Anemia in other chronic diseases classified elsewhere; I95.1 Orthostatic hypotension; K57.90 Diverticulosis of intestine, part unspecified, without perforation or abscess without bleeding; E89.0 Postprocedural hypothyroidism; I48.91 Unspecified atrial fibrillation; R41.0 Disorientation, unspecified; K64.8 Other hemorrhoids; E78.5 Hyperlipidemia, unspecified; N18.3 Chronic kidney disease, stage 3 (moderate); Z87.440 Personal history of urinary (tract) infections; K22.2 Esophageal obstruction; Z79.01 Long term (current) use of anticoagulants; W00.0XXD Fall on same level due to ice and snow, subsequent encounter; Y92.9 Unspecified place or not applicable

== ENCOUNTER 2019-05-01 10:42 | Inpatient (IN) | payer MEDICARE ==
[~2019-05-01] VITALS: Ht 160 cm; Wt 71.6 kg
[~2019-05-01 10:42] MED LIST changes: +ACET-683 PO; +ALLO10TA PO; +CALC1CAP31 PO; +DOCU100C16 PO; +FERR325T18 PO; +Fosfomycin Tromethamine PO; +GUAI20TA PO; +IPRA0.00 NEB; +LIDO5TD TD; +MOM30SS2 PO; +MOUKOT60 MT; +MUSCCRE9 TOP; +OXYC-517 PO; +SENN18TA PO; +SYMB80INH INH; +SYNT137T7 PO; +THIA100TA PO; +TRAZ-252 PO
[2019-05-01 15:15] VITALS: BP 104/57
[2019-05-01] MEDS ORDERED: PILL CUTTER 1 EACH XX PRN (15:45)
[2019-05-01] MEDS ORDERED: MOM 30ML SUSPENSION UDC PO PRN (15:45)
[2019-05-01] MEDS ORDERED: BISACODYL 5 MG TAB PO PRN (15:45)
[2019-05-01] MEDS ORDERED: traZODone 25MG PER 1/2 TABLET PO PRN (15:45)
[2019-05-01] MEDS ORDERED: oxyCODONE 5MG TAB PO SCH (16:00)
[2019-05-01] MEDS: IPRATROPIUM 0.5MG/ALBUTEROL 2.5MG INH SOL UD 3ML (DUONEB)(J7620) NEB SCH (16:00)
[2019-05-01] MEDS: guaiFENesin 200 MG TAB PO SCH ×2 (16:12→22:28)
[2019-05-01] MEDS: ACETAMINOPHEN 500 MG TAB PO SCH ×2 (16:13→22:29)
[2019-05-01] MEDS: oxyCODONE 5MG TAB PO SCH (17:00)
--- NOTE | 2019-05-01 17:36 | IPN ---
DATE: 04/30/2019 SUBJECTIVE: The patient was seen and examined at the bedside today morning. She got the CT scan of the chest and CT scan of the abdomen, pelvis done yesterday. CT scan of the chest showed a right lower lobe pneumonia. and she was started on intravenous (IV) Zosyn. CT scan of the abdomen showed splenomegaly. No other acute pathology. Her renal function continues to improve. Creatinine is down to 1.3 today. White cell count is also getting better. The patient complains of feeling nauseated, and she was vomiting when I saw her in the morning. OBJECTIVE: Vital signs: Temperature is 97.4 degrees Fahrenheit, blood pressure 150/72, pulse is 113, respiratory of 16, saturating 98% on room air. Intake and output: Urine output is not recorded. Weight in the bed scale is 72.3 kg. PHYSICAL EXAMINATION: GENERAL: The patient is awake, alert, oriented times three, sitting up in the bed. She is nauseated. HEAD AND NECK: Extraocular muscles intact. Pupils equally round and reactive to light. Mucous membranes are moist. Neck is supple. There is no jugular venous distention (JVD). CARDIOVASCULAR: S1, S2, regular rate. Edema 1+ of the right lower extremity and 2+ edema of the left lower extremity. RESPIRATORY: Chest is clear to auscultation on the left side. There is mild inspiratory crackles on the right base on deep inspiration. ABDOMEN: Soft. Positive bowel sounds. Nontender. No organomegaly. MUSCULOSKELETAL: No clubbing or cyanosis. Edema of the extremities as noted above. CENTRAL NERVOUS SYSTEM: No focal no focal deficit. Power is 5/5 in all extremities. LABORATORY REVIEW: CBC showed a WBC of 9.5, hemoglobin 9.8, platelets of 111. BMP showed sodium 136, potassium 4.3, chloride 107, bicarbonate 22, BUN 47, creatinine is 1.3; it was 1.7 yesterday, calcium 6.7. LDH is 264. CURRENT INPATIENT MEDICATIONS: The patient's medications were all reviewed by me. Zosyn was stopped. The patient was started on IV meropenem 1 gram IV every 12 hours. Zofran has been changed to Zofran ODT 4 mg every 6 hours as needed for nausea and vomiting. No other change in the medications today. ASSESSMENT AND PLAN: 1. Acute kidney injury superimposed on chronic kidney disease. The patient's diuretics are on hold. Renal function is improving. Creatinine is down to 1.3. Diuretics will be resumed once the renal function improves back to baseline. 2. Right lower lobe pneumonia. The patient was started on Zosyn. Since there is history of penicillin allergy in the past, I am stopping the Zosyn and switching the patient to meropenem. 3. Splenomegaly. The patient reports that she already follows up with hematology/oncology as outpatient with a history of splenomegaly. 4. Chronic diastolic congestive heart failure. Diuretics are on hold because of acute renal failure. 5. Nausea and vomiting. Zofran has been changed to Zofran ODT.
--- NOTE | 2019-05-01 18:01 | HPEPDOC ---
General Date of Admission May 01, 2019 at 14:58 Date of Service: May 01, 2019 Chief Complaint The patient is a 73-year-old female admitted with a reason for visit of Hcap With Pleural Infusion. Source: Patient Exam Limitations: No limitations History of Present Illness Ms Fernandez is a 73 year old female admitted with a diagnosis of HCAP with Pleural Effusion. Pt was transferred from the ARU due to a L comminuted fracture of the left hip after she slipped and fell on ice (04-10-19). When seen in the ARU (04/29/19) pt became, weak and lightheaded while getting into the shower. She was afebrile and denied shortness of breath. 04/29/19 her WBC had become elevated. CXR 04/29/19 Impression: "New right-sided pleural effusion and right lower lobe air space consolidation." As a result, a CT chest was ordered. Impression: "Moderate right effusion with adjacent right lung infiltrate predominantly involving the right lower lobe. Tiny left effusion. Minor left lower lobe infiltrate." Pt. was also being followed by nephrology due to worsening kidney function/elevated Cr. She was Dx with FREDY on CKD 2/2 intravascular volume de pletion. She was given IV fluids and diuretics were held. Cr. gradually returned to baseline. She also had a CT of the abdomen/pelvis per nephrology due to questionable palpated mass. CT was unchanged from previous showing an enlarged spleen. This was known to the patient and her family. Pt is scheduled to have thoracocentesis of the pleural effusion. She is on chronic Eliquis which IR recommends is held for 2 days both before and again after the procedure. She has been transferred to Med/Surg for observation while Eliquis is being held. Pt is seen today in bed with one daughter present. She reported she continues to cough (chronic), and she has a sharp, non-radiating pain over her right side that worsens with deep breaths, cough or movement. The pain is relieved by laying still or with the use of her inhalers, she denied being short of breath. Pt stated the pain is tolerable for her as long as she doesn't move around too much. Home Medications Scheduled Acetaminophen (Acetaminophen) 500 Mg Tablet, 1,000 MG PO TID Allopurinol (Allopurinol) 100 Mg Tab, 100 MG PO DAILY, (Reported) Amiodarone HCl (Pacerone) 100 Mg Tab, 200 MG PO DAILY, (Reported) Apixaban (Eliquis) 5 Mg Tablet, 5 MG PO BID Budesonide/Formoterol (Symbicort 80-4.5 Mcg Inhaler) 6.9 Gm Hfa.aer.ad, 2 PUFF INH BID Calcitriol (Calcitriol) 0.25 Mcg Capsule, 0.5 MCG PO DAILY Denosumab Injection (Prolia) 60 Mg/1 Ml Syringe, 60 MG SC [id number], (Reported) Docusate Sodium (Docusate Sodium) 100 Mg Capsule, 100 MG PO BID Ferrous Sulfate (Ferrous Sulfate) 325 Mg Tablet, 325 MG PO BID Fluticasone/Vilanterol (Breo Ellipta 200-25 Mcg INH) 1 Each Blst.w.dev, 1 PUFF INH DAILY, (Reported) Folic Acid (Folic Acid) 1 Mg Tab, 1 MG PO DAILY, (Reported) Guaifenesin (Guaifenesin) 200 Mg Tablet, 400 MG PO TID Ipratropium/Albuterol Sulfate (Iprat-Albut 0.5-3(2.5) mg/3 ml) 3 Ml Ampul.neb, 3 ML NEB RQID Levothyroxine Sodium (Levothyroxine Sodium) 137 Mcg Tablet, 137 MCG PO DAILY, (Reported) Lidocaine (Lidocaine) 5% Adh..patch, 1 PATCH TD DAILY Methyl Salicylate/Menthol (Muscle Rub Cream) 85 Gm Cream..g., 1 DOSE TOP TID Metoprolol Tartrate (Metoprolol Tartrate) 25 Mg Tab, 12.5 MG PO BID, (Reported) Metoprolol Tartrate (Metoprolol Tartrate) 25 Mg Tablet, 12.5 MG PO BID Non-Formulary Medication ([place] Solution) 60 Ml [place], 2 SPRAYS MT QID Oxycodone HCl (Oxycodone HCl) 5 Mg Tablet, 2.5 MG PO TID@0700,1200,1700 Pantoprazole Sodium (Pantoprazole Sodium) 40 Mg Tablet.dr, 40 MG PO DAILY Senna (Senna Lax) 8.6 Mg Tablet, 1 TAB PO QHS Simvastatin (Simvastatin) 20 Mg Tab, 20 MG PO DAILY, (Reported) Thiamine Mononitrate (Vit B1) (Vitamin B-1) 100 Mg Tablet, 100 MG PO DAILY, (Reported) Tiotropium [place] (Spiriva) 18 Mcg Cap, 1 PUFFS INH DAILY, (Reported) Verapamil HCl (Verapamil ER) 120 Mg Tab, 120 MG PO BID, (Reported) [Fosfomycin Tromethamine] 3 GM/PKT PACKET, 3 GM PO Q7D Scheduled PRN Albuterol Sulfate (Albuterol Sulfate Hfa) 8.5 Gm Hfa.aer.ad, 1 INH INH q4-6h PRN for SOB/WHEEZING, (Reported) Magnesium Hydroxide (Milk of Magnesia) 400 Mg/5 Ml Oral.susp, 30 ML PO DAILYPRN PRN for CONSTIPATION Trazodone HCl (Trazodone HCl) 50 Mg Tablet, 25 MG PO QHS PRN for INSOMNIA Allergies Coded Allergies: tetracycline (Verified Allergy, Severe, swelling, peeling of the tongue, 02/19/19) zolpidem (Verified Allergy, Severe, respiratory distress, 02/19/19) Sulfa (Sulfonamide Antibiotics) (Verified Allergy, Intermediate, hives, 02/19/19) Penicillins (Verified Adverse Reaction, Intermediate, N/V, 02/19/19) tramadol (Verified Adverse Reaction, Intermediate, N/V, 02/19/19) Past Medical History Medical History COPD, Afib, Hypertension, Hyperlipidemia, Reflux esophagitis ,Hiatal hernia, Gastritis, Hypothyroid, gout, osteoporosis, Benign esophageal stenosis, diverticulosis, internal hemorrhoids, iron def anemia, Pulmonary nodule stable, ITP Surgical History tonsillectomy and adenoidectomy, appendectomy, total thyroidectomy, ORIF L hip Family History Significant Family History: Cancer (Sister (dec.) colon ca.), Hypertension (Mother and father ) Social History * Smoker: former Smoker Alcohol: Denies Drugs: denies A-FIB/CHADSVASC A-FIB History Current/History of A-Fib/PAF?: Yes Current PO Anticoag Therapy: Yes (Eliquis) Review of Systems Constitutional: Denies: Chills, Fever, Night Sweats Eyes: Denies: Pain ENT: Reports: Dysphagia; Denies: Head Aches Skin: Denies: Rash Pulmonary: Reports: Cough, Pleuritic Chest Pain (see HPI); Denies: Dyspnea Cardiovascular: Denies: Palpitations, Lt Headedness Gastrointestinal: Reports: Vomiting, Diarrhea; Denies: Abdominal Pain Hematologic: Denies: Bruising Musculoskeletal: Reports: Back Pain; Denies: Neck Pain Neurological: Reports: Confusion; Denies: Weakness Physical Examination General Exam: Positive: Alert, Cooperative, Mild Distress, Other (pt able to hold on and roll over to left and right for lung exam without pain response; this is new for her ) Eye Exam: Positive: Conjunctiva & lids normal ENT Exam: Positive: Atraumatic, Mucous membr. moist/pink, Pharynx Normal Chest Exam: Positive: Wheezing (generalized wheezing; good air movement ) Heart Exam: Positive: Rate Normal, Regular Rhythm, Normal S1, Normal S2; Negative: Tachycardic, Murmurs, Rubs Abdomen Exam: Positive: Normal bowel sounds, Soft, Hepatospenomegaly Extremity Exam: Positive: Edema (mild b/l pedal edema ), Normal pulses, Other; Negative: Clubbing, Cyanosis Skin Exam: Positive: Nl turgor and temperature Neuro Exam: Positive: Normal Speech Psych Exam: Positive: Mood NL, Oriented x 3 Vital Signs Vital Signs Date Time Temp Pulse Resp B/P (MAP) Pulse Ox O2 Delivery O2 Flow Rate FiO2 05/01/19 15:15 97.7 77 19 104/57 (73) 94 Room Air Assessment/Plan Ms Fernandez is a 73 year old female with PMH of COPD, paroxysmal Afib, Hypertension, Hyperlipidemia, Reflux esophagitis ,Hiatal hernia, Gastritis, Hypothyroid, gout, osteoporosis, Benign esophageal stenosis, diverticulosis, internal hemorrhoids, iron def anemia, Pulmonary nodule stable, CKD, CHF with preserved EF, COPD, Chronic thrombocytopenia with splenomegaly since 2012 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 admitted to the ARU after surgical fixation of a Left comminuted fracture of the left hip after she slipped and fell on ice (04-10-19). She had a big hematoma as she was on Eliquis as an outpatient. Patient required 5 units of PRBCs for acute blood loss anemia and underwent and ORIF. Postoperatively patient became dehydrated due to poor oral intake and suffered an FREDY, requiring IVF for hydration. Since being in rehab, Ms. Fernandez further developed LLE 2+ pitting edema. Dr. Tay ordered a venous USG of the extremity. Results: No DVT. Pedal edema improved with PT. Patient was noted to have dropping platelets while in ARU. She was also noted to have rising creatinine. Currently she also has rising WBC. She remains afebrile. CXR worse than before so CT chest was done showed moderate right effusion with adjacent right lung infiltrate predominantly involving the right lower lobe. Tiny left effusion. Minor left lower lobe infiltrate. Left hip Fracture s/p ORIF on 04/12/19 pain control with Oxycodone with tylenol Pneumonia with effusion right > left possibility of HCAP On Meropenem IR guided drain of the effusion scheduled. per IR - hold Eliquis 2 days prior and 2 days post procedure. Hold Saturday and Saturday, procedure Saturday. Dr. Tay recommends Tx to ICU for above Pt transferred to Med/Surg for obs while Eliquis held over the weekend Pleuritic CP: Pt is hemodynamically stable and denies being short of breath secondary to pneumonia Sx indicate a pulmonary etiology low suspicion for PE as pt is on chronic Eliquis and several venous USG - for DVT FREDY on CKD stage 3 with secondary hyperparathyroidism. due to intravascular volume depletion as noted by rise in Hb from recent base line, rise in BUN/cr given some IVF and diuretics held. Resolved today Pedal edema due to possibly venous stasis, no DVT. contributed to by the very low albumin and acute on chronic anemia recently. improving Acute on chronic anemia this is due to acute blood loss into the hematoma after the fracture chronic anemia is due to Iron deficiency and some degree of anemia of chronic disease. Now hh stable in the 8 to 9 range. Continue iron. Chronic Thrombocytopenia since 2013 with massive splenomegaly with left upper quadrant mass. Splenomegaly in CT abdomen from 2013 This was discussed with Dr Wagoner patient has ITP with iron deficiency anemia. Bone was done this year which was normocellular and no hematological malignancy seen. No MDS. ITP which during the acute events with bleeding Now has improved. Diastolic Congestive heart failure Now seems to be euvolemic though has edema and pleural effusion [place] [address] on 04/16 to 1500. COPD continue home meds, symbicort in place of breo, spiriva and duonebs. Paroxysmal Afib continue metoprolol, amiodarone, eliquis H/o Hypertension now with episodes of hypotension antihypertensives metoprolol and verapamil on high hold parameters. and diuretics stopped. possibly due to intravascular depletion. Gastritis/reflux/hiatal hernia continue pantoprazole Hypothyroid continue synthroid Gout continue allopurinol Monocytosis this is new patient did have a bone marrow biopsy earlier this year which was negative for any hematological malignancy. follow up Dr Wagoner Recurrent UTIs on suppressive prophylaxis with Fosfomycin. Plan / VTE VTE Prophylaxis Ordered?: Yes ROSALBA QUEEN PA-C May 01, 2019 18:01 YANN CARROLL MD May 02, 2019 09:41
[2019-05-01] MEDS: SYMBICORT 80/4.5MCG INHALER 6GM INH SCH (20:09)
[2019-05-01] MEDS: VERAPAMIL 40 MG TAB PO SCH (20:43)
[2019-05-01] MEDS: METOPROLOL TART 12.5 MG PER 1/2 TAB PO SCH (20:58)
[2019-05-01 22:00] VITALS: BP 109/58
--- NOTE | 2019-05-01 22:00 | IPN ---
DATE: 05/01/2019 SUBJECTIVE The patient was seen and examined at the bedside today morning. She reports that her nausea and vomiting is significantly better today. Her Zosyn was stopped yesterday. She was switched to meropenem. Renal function continues to improve. Creatinine is down to 1.1 today. She denies any active complaints apart from dry tongue. OBJECTIVE Vital signs: Temperature is 96.2 degrees Fahrenheit, blood pressure 120/60, pulse is 86, respiratory rate of 18, saturating 100% on nasal cannula at 2 liters. Intake and output: Urine output is not recorded. She has had the one void so far since overnight. Weight in the bed scale is 72.3 mL which is stable since yesterday. PHYSICAL EXAMINATION General: The patient is awake, alert, oriented times three, laying in bed. No apparent distress. Head and neck examination: Extraocular muscles intact. Pupils equally round and reactive to light. Mucous membranes are moist. Neck is supple. No jugular venous distention (JVD). Cardiovascular: S1, S2, regular rate. 2+ edema of the bilateral lower extremities. Respiratory: Mildly decreased breath sounds at the bases, otherwise no active rales or rhonchi. Abdomen: Soft, positive bowel sounds. Spleen is palpable in the left upper quadrant. Musculoskeletal: No clubbing or cyanosis. 2+ edema as noted above. [employer]: No focal deficit. Power is 5/5 in all extremities. LAB REVIEW: CBC showed WBC of 9.4, hemoglobin 9.9, platelets of 105. BMP showed sodium 140, potassium 3.9, chloride 107, bicarb 21, BUN 38, creatinine is 1.1, it was 1.3 yesterday, calcium 6.4. CURRENT INPATIENT MEDICATIONS. The patient's medications were all reviewed by myself. She continues to be on meropenem 1 gram IV every 12 hourly. Last dose is on May 07, 2019. No other change in the medications today as compared with yesterday. ASSESSMENT/PLAN 1. Acute renal failure superimposed on chronic kidney disease. It was secondary to dehydration. Lasix and spironolactone were stopped. She was given gentle IV fluid hydration. Renal function has improved back to baseline. Creatinine is 1.1 today. 2. Right lower lobe pneumonia. The patient is currently on IV meropenem. Dose will be increased tomorrow if renal function stays stable. 3. Chronic diastolic congestive heart failure. Diuretics are on hold. She does have 2+ lower extremity edema. If renal function stays stable I would start gentle dose of diuretics tomorrow morning.
[2019-05-01] MEDS: SENOKOT S TAB PO SCH (22:28)
[2019-05-01] MEDS: FOLIC ACID 1 MG TAB PO SCH (22:28)
[2019-05-01] MEDS: FERROUS SULFATE 325MG TAB PO SCH (22:28)
[2019-05-01] MEDS: MEROPENEM INJ 1 GM in IV 1 EA IV SCH (22:29)
[2019-05-02] MEDS: IPRATROPIUM 0.5MG/ALBUTEROL 2.5MG INH SOL UD 3ML (DUONEB)(J7620) NEB SCH ×3 (02:14→16:23)
[2019-05-02 06:00] VITALS: BP 108/57
[2019-05-02 06:29] LABS: HEMATOCRIT 33.9 % (36.0-47.0); HEMOGLOBIN 9.5 g/dl (12.0-15.5); MEAN CORPUSCULAR HEMOGLOBIN 27.9 pg (27.0-33.0); MEAN CORPUSCULAR VOLUME 99.7 fl (80.0-96.0); WHITE BLOOD COUNT 8.5 10^3/uL (4.0-10.0)
[2019-05-02] MEDS: oxyCODONE 5MG TAB PO SCH ×3 (06:31→16:46)
[2019-05-02 06:51] LABS: CALCIUM LEVEL 6.1 MG/DL (8.8-10.2); CREATININE FOR GFR 1.07 MG/DL (0.55-1.30); GLOMERULAR FILTRATION RATE 53.4 (>39)
[2019-05-02 07:23] LABS: PLATELET COUNT, AUTOMATED 95 10^3/uL (150-450)
[2019-05-02] MEDS: TIOTROPIUM INHALER/CAPSULE (SPIRIVA) INH SCH (08:34)
[2019-05-02] MEDS: SYMBICORT 80/4.5MCG INHALER 6GM INH SCH ×2 (08:34→19:26)
[2019-05-02] MEDS: VERAPAMIL 40 MG TAB PO SCH ×3 (08:37→21:13)
[2019-05-02] MEDS: PANTOPRAZOLE 40MG TAB (PROTONIX) PO SCH (08:38)
[2019-05-02] MEDS: METOPROLOL TART 12.5 MG PER 1/2 TAB PO SCH ×2 (08:38→21:00)
[2019-05-02] MEDS: FERROUS SULFATE 325MG TAB PO SCH ×2 (08:39→21:14)
[2019-05-02] MEDS: AMIODARONE 200 MG TAB (PACERONE) PO SCH (08:39)
[2019-05-02] MEDS: SENOKOT S TAB PO SCH (08:39)
[2019-05-02] MEDS: THIAMINE 100 MG TAB PO SCH (08:39)
[2019-05-02] MEDS: CALCITRIOL 0.25 MCG CAP (S0169) PO SCH (08:39)
[2019-05-02] MEDS: guaiFENesin 200 MG TAB PO SCH ×3 (08:39→21:14)
[2019-05-02] MEDS: ACETAMINOPHEN 500 MG TAB PO SCH ×3 (08:39→21:13)
[2019-05-02] MEDS: MEROPENEM INJ 1 GM in IV 1 EA IV SCH ×2 (09:22→21:11)
--- NOTE | 2019-05-02 09:34 | IPNPDOC ---
Subjective Date Seen The patient was seen on 05/02/19. Subjective Chief Complaint/HPI Complains of diarrhea today, no abdominal pain. Will stop the stool softeners. Says has walked to the bathroom. but says has a lot of back pain when she is walking with the walker. Cough less, no fever or chills, no chest pain. Objective Physical Examination General Exam: Positive: Alert, Cooperative, No Acute Distress, Other (pt able to hold on and roll over to left and right for lung exam without pain response; this is new for her ) Eye Exam: Positive: PERRLA, Conjunctiva & lids normal, EOMI; Negative: Sclera icteric ENT Exam: Positive: Atraumatic, Mucous membr. moist/pink, Pharynx Normal Neck Exam: Positive: Supple Chest Exam: Positive: Rales (at the right ), Diminished, Other (No ronchi or wheezing) Heart Exam: Positive: Rate Normal, Regular Rhythm, Normal S1, Normal S2; Negative: Tachycardic, Murmurs, Rubs Abdomen Exam: Positive: Normal bowel sounds, Soft, Hepatospenomegaly Extremity Exam: Positive: Edema (mild b/l pedal edema ), Other; Negative: Clubbing, Cyanosis Skin Exam: Positive: Nl turgor and temperature Neuro Exam: Positive: Normal Speech Psych Exam: Positive: Mood NL, Oriented x 3 Assessment /Plan Assessment Ms Fernandez is a 73 year old female with PMH of COPD, paroxysmal Afib, Hypertension, Hyperlipidemia, Reflux esophagitis ,Hiatal hernia, Gastritis, Hypothyroid, gout, osteoporosis, Benign esophageal stenosis, diverticulosis, internal hemorrhoids, iron def anemia, Pulmonary nodule stable, CKD, CHF with preserved EF, COPD, Chronic thrombocytopenia with splenomegaly since 2012 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 admitted to the ARU after surgical fixation of a Left comminuted fracture of the left hip after she slipped and fell on ice (04-10-19). She had a big hematoma as she was on Eliquis as an outpatient. Patient required 5 units of PRBCs for acute blood loss anemia and underwent and ORIF. Postoperatively patient became dehydrated due to poor oral intake and suffered an FREDY, requiring IVF for hydration. Since being in rehab, Ms. Fernandez further developed LLE 2+ pitting edema. Dr. Tay ordered a venous USG of the extremity. Results: No DVT. Pedal edema improved with PT. Patient was noted to have dropping platelets while in ARU. She was also noted to have rising creatinine. She was also having rising WBC. CXR worse than before so CT chest was done showed moderate right effusion with adjacent right lung infiltrate predominantly involving the right lower lobe. Tiny left effusion. Minor left lower lobe infiltrate. She was diagnosed with HCAP with possible parapneumonic effusion So was moved from ARU to Inpatient. Left hip Fracture s/p ORIF on Pneumonia with effusion right > left possibility of HCAP On meropenem IR guided drain of the effusion scheduled. per IR - hold Eliquis 2 days prior and 2 days post procedure. Hold Saturday and Saturday, procedure Saturday. Dr. Tay recommends Tx to ICU for above Patient transferred to Med/Surg for obs while Eliquis held over the weekend FREDY on CKD stage 3 with secondary hyperparathyroidism. due to intravascular volume depletion as noted by rise in Hb from recent baseline, rise in BUN/cr resolved with hydration and holding the diuretics Pedal edema due to possibly venous stasis, no DVT. contributed to by the very low albumin and acute on chronic anemia recently. improving Acute on chronic anemia this is due to acute blood loss into the hematoma after the fracture chronic anemia is due to Iron deficiency and some degree of anemia of chronic disease. Now hh stable in the 8 to 9 range. Continue iron. Chronic Thrombocytopenia since 2013 with massive splenomegaly with left upper quadrant mass. Splenomegaly in CT abdomen from 2013 This was discussed with Dr Wagoner patient has ITP with iron deficiency anemia. Bone was done this year which was normocellular and no hematological malignancy seen. No MDS. ITP which during the acute events with bleeding Now has improved. Diastolic Congestive heart failure Now seems to be euvolemic though has edema and pleural effusion [place] [address] on 04/16 to 1500. COPD continue home meds, symbicort in place of breo, spiriva and duonebs. Paroxysmal Afib continue metoprolol, amiodarone, eliquis at home now held. H/o Hypertension now with episodes of hypotension antihypertensives metoprolol and verapamil on high hold parameters. possibly due to intravascular depletion. Gastritis/reflux/hiatal hernia continue pantoprazole Hypothyroid continue synthroid Gout continue allopurinol Monocytosis this is new patient did have a bone marrow biopsy earlier this year which was negative for any hematological malignancy. follow up Dr Wagoner Recurrent UTIs on suppressive prophylaxis with Fosfomycin. now held as on meropenem Plan/VTE VTE Prophylaxis Ordered?: Yes VS, I&O, 24H, Fishbone Vital Signs/I&O Vital Signs Date Time Temp Pulse Resp B/P (MAP) Pulse Ox O2 Delivery O2 Flow Rate FiO2 05/02/19 08:38 103/53 05/02/19 08:37 82 05/02/19 07:01 17 Room Air 05/02/19 06:00 97.4 97 I&O- Last 24 Hours up to 6 AM 05/02/19 05:59 Intake Total 550 ml Output Total 1 ml Balance 549 ml Laboratory Data 24H LABS Laboratory Tests 2 05/02/19 06:14: Nucleated Red Blood Cells % (auto) 0.4H, Immature Platelet Fraction 8.1, Anion Gap 8, Glomerular Filtration Rate 53.4, Calcium Level 6.1L CBC/BMP Laboratory Tests 05/02/19 06:14 YANN CARROLL MD May 02, 2019 09:34
[2019-05-02 14:00] VITALS: BP 107/46
[2019-05-02] MEDS: allopurinoL 100 MG TAB PO SCH (21:14)
[2019-05-02] MEDS: FOLIC ACID 1 MG TAB PO SCH (21:14)
[2019-05-02] MEDS: SIMVASTATIN 20 MG TAB PO SCH (21:14)
[2019-05-02 22:00] VITALS: BP 105/46
[2019-05-03] MEDS: IPRATROPIUM 0.5MG/ALBUTEROL 2.5MG INH SOL UD 3ML (DUONEB)(J7620) NEB SCH ×3 (00:05→16:18)
[2019-05-03 06:00] VITALS: BP 107/64
[2019-05-03] MEDS: oxyCODONE 5MG TAB PO SCH ×3 (06:45→17:17)
[2019-05-03] MEDS: SYMBICORT 80/4.5MCG INHALER 6GM INH SCH ×2 (07:43→21:25)
[2019-05-03] MEDS: TIOTROPIUM INHALER/CAPSULE (SPIRIVA) INH SCH (07:43)
[2019-05-03] MEDS: VERAPAMIL 40 MG TAB PO SCH ×2 (09:00→21:00)
[2019-05-03] MEDS: METOPROLOL TART 12.5 MG PER 1/2 TAB PO SCH ×2 (09:00→21:35)
[2019-05-03] MEDS: ACETAMINOPHEN 500 MG TAB PO SCH (09:00)
[2019-05-03] MEDS: PANTOPRAZOLE 40MG TAB (PROTONIX) PO SCH (09:08)
[2019-05-03] MEDS: guaiFENesin 200 MG TAB PO SCH ×3 (09:08→21:36)
[2019-05-03] MEDS: FERROUS SULFATE 325MG TAB PO SCH ×2 (09:09→21:36)
[2019-05-03] MEDS: AMIODARONE 200 MG TAB (PACERONE) PO SCH (09:09)
[2019-05-03] MEDS: THIAMINE 100 MG TAB PO SCH (09:09)
[2019-05-03] MEDS: CALCITRIOL 0.25 MCG CAP (S0169) PO SCH (09:10)
[2019-05-03] MEDS: MEROPENEM INJ 1 GM in IV 1 EA IV SCH ×2 (09:11→21:36)
--- NOTE | 2019-05-03 09:56 | IPNPDOC ---
Subjective Date Seen The patient was seen on 05/03/19. Subjective Chief Complaint/HPI No complaints this morning. no fever or chills, no cough or phlegm . No nausea or vomiting , continues to have diarrhea. Objective Physical Examination General Exam: Positive: Alert, Cooperative, No Acute Distress, Other (pt able to hold on and roll over to left and right for lung exam without pain response; this is new for her ) Eye Exam: Positive: PERRLA, Conjunctiva & lids normal, EOMI; Negative: Sclera icteric ENT Exam: Positive: Atraumatic, Mucous membr. moist/pink, Pharynx Normal Neck Exam: Positive: Supple Chest Exam: Positive: Rales (at the right ), Diminished, Other (No ronchi or wheezing) Heart Exam: Positive: Rate Normal, Regular Rhythm, Normal S1, Normal S2; Negative: Tachycardic, Murmurs, Rubs Abdomen Exam: Positive: Normal bowel sounds, Soft, Hepatospenomegaly Extremity Exam: Positive: Edema (mild b/l pedal edema ), Other; Negative: Clubbing, Cyanosis Skin Exam: Positive: Nl turgor and temperature Neuro Exam: Positive: Normal Speech Psych Exam: Positive: Mood NL, Oriented x 3 Assessment /Plan Assessment Ms Fernandez is a 73 year old female with PMH of COPD, paroxysmal Afib, Hypertension, Hyperlipidemia, Reflux esophagitis ,Hiatal hernia, Gastritis, Hypothyroid, gout, osteoporosis, Benign esophageal stenosis, diverticulosis, internal hemorrhoids, iron def anemia, Pulmonary nodule stable, CKD, CHF with preserved EF, COPD, Chronic thrombocytopenia with splenomegaly since 2012 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 admitted to the ARU after surgical fixation of a Left comminuted fracture of the left hip after she slipped and fell on ice (04-10-19). She had a big hematoma as she was on Eliquis as an outpatient. Patient required 5 units of PRBCs for acute blood loss anemia and underwent and ORIF. Postoperatively patient became dehydrated due to poor oral intake and suffered an FREDY, requiring IVF for hydration. Since being in rehab, Ms. Fernandez further developed LLE 2+ pitting edema. Dr. Tay ordered a venous USG of the extremity. Results: No DVT. Pedal edema improved with PT. Patient was noted to have dropping platelets while in ARU. She was also noted to have rising creatinine. She was also having rising WBC. CXR worse than before so CT chest was done showed moderate right effusion with adjacent right lung infiltrate predominantly involving the right lower lobe. Tiny left effusion. Minor left lower lobe infiltrate. She was diagnosed with HCAP with possible parapneumonic effusion So was moved from ARU to Inpatient. Left hip Fracture s/p ORIF on Pneumonia with effusion right > left possibility of HCAP On meropenem IR guided drain of the effusion scheduled. per IR - hold Eliquis 2 days prior and 2 days post procedure. Hold Saturday and Saturday, procedure Saturday. Dr. Tay recommends Tx to ICU for above Patient transferred to Med/Surg for obs while Eliquis held over the weekend DIarrhea small amounts probably due to antibiotics. will hold all stool softeners. will add probiotic. FREDY on CKD stage 3 with secondary hyperparathyroidism. due to intravascular volume depletion as noted by rise in Hb from recent baseline, rise in BUN/cr resolved with hydration and holding the diuretics Pedal edema due to possibly venous stasis, no DVT. contributed to by the very low albumin and acute on chronic anemia recently. improving Acute on chronic anemia this is due to acute blood loss into the hematoma after the fracture chronic anemia is due to Iron deficiency and some degree of anemia of chronic disease. Now hh stable in the 8 to 9 range. Continue iron. Chronic Thrombocytopenia since 2013 with massive splenomegaly with left upper quadrant mass. Splenomegaly in CT abdomen from 2013 This was discussed with Dr Wagoner patient has ITP with iron deficiency anemia. Bone was done this year which was normocellular and no hematological malignancy seen. No MDS. ITP which during the acute events with bleeding Platelet at 95 will continue to monitor. May be down due to antibiotics Diastolic Congestive heart failure Now seems to be euvolemic though has edema and pleural effusion [place] [address] on 04/16 to 1500. COPD continue home meds, symbicort in place of breo, spiriva and duonebs. Paroxysmal Afib continue metoprolol, amiodarone, eliquis at home now held. H/o Hypertension now with episodes of hypotension antihypertensives metoprolol and verapamil on high hold parameters. possibly due to intravascular depletion. Gastritis/reflux/hiatal hernia continue pantoprazole Hypothyroid continue synthroid Gout continue allopurinol Monocytosis this is new patient did have a bone marrow biopsy earlier this year which was negative for a ny hematological malignancy. follow up Dr Wagoner Recurrent UTIs on suppressive prophylaxis with Fosfomycin. now held as on meropenem Plan/VTE VTE Prophylaxis Ordered?: Yes VS, I&O, 24H, [place] Vital Signs/I&O Vital Signs Date Time Temp Pulse Resp B/P (MAP) Pulse Ox O2 Delivery O2 Flow Rate FiO2 05/03/19 09:00 84 108/65 05/03/19 07:15 16 Room Air 05/03/19 06:00 98.1 100 2.0 I&O- Last 24 Hours up to 6 AM 05/03/19 06:00 Intake Total 990 ml Balance 990 ml Laboratory Data 24H LABS Laboratory Tests 2 05/03/19 07:51: Bedside Glucose (Misc Panel) 78L YANN CARROLL MD May 03, 2019 09:56
[2019-05-03] MEDS ORDERED: ACETAMINOPHEN 500 MG TAB PO PRN (10:00)
[2019-05-03] MEDS: LACTOBACILLUS ACIDOPHILUS CAP (BACID) PO SCH ×2 (13:13→17:16)
[2019-05-03 14:00] VITALS: BP 110/63
[2019-05-03] MEDS: SIMVASTATIN 20 MG TAB PO SCH (21:35)
[2019-05-03] MEDS: FOLIC ACID 1 MG TAB PO SCH (21:35)
[2019-05-03] MEDS: allopurinoL 100 MG TAB PO SCH (21:36)
[2019-05-03 22:00] VITALS: BP 112/61
[2019-05-03] MEDS: CLOTRIMAZOLE 1% VAG CR 45 GM PV SCH (23:14)
[2019-05-04] MEDS: IPRATROPIUM 0.5MG/ALBUTEROL 2.5MG INH SOL UD 3ML (DUONEB)(J7620) NEB SCH ×4 (02:04→23:47)
[2019-05-04 06:00] VITALS: BP 109/58
[2019-05-04] MEDS: oxyCODONE 5MG TAB PO SCH ×3 (06:39→16:12)
[2019-05-04 07:04] LABS: HEMATOCRIT 33.5 % (36.0-47.0); HEMOGLOBIN 9.4 g/dl (12.0-15.5); MEAN CORPUSCULAR HEMOGLOBIN 27.7 pg (27.0-33.0); MEAN CORPUSCULAR HGB CONC 28.1 g/dl (32.0-36.5); MEAN CORPUSCULAR VOLUME 98.8 fl (80.0-96.0); RED BLOOD COUNT 3.39 10^6/uL (4.00-5.40); WHITE BLOOD COUNT 7.4 10^3/uL (4.0-10.0)
[2019-05-04 07:23] LABS: BLOOD UREA NITROGEN 20 MG/DL (7-18); CALCIUM LEVEL 6.6 MG/DL (8.8-10.2); CARBON DIOXIDE LEVEL 25 MEQ/L (21-32); CHLORIDE LEVEL 109 MEQ/L (98-107); CREATININE FOR GFR 0.73 MG/DL (0.55-1.30); GLOMERULAR FILTRATION RATE > 60.0 (>39); GLUCOSE, FASTING 86 MG/DL (70-100); POTASSIUM SERUM 4.2 MEQ/L (3.5-5.1); SODIUM LEVEL 140 MEQ/L (136-145)
[2019-05-04 07:24] LABS: PLATELET COUNT, AUTOMATED 78 10^3/uL (150-450)
[2019-05-04 08:17] LABS: ATYPICAL LYMPH 1 % (0-5); BASOPHILS 1 % (0-1); LYMPHOCYTES 24 % (16-44); METAMYELOCYTES 3 % (0-0); MONOCYTES 15 % (0-5); MYELOCYTES 1 % (0-0); NEUTROPHILS 55 % (28-66)
[2019-05-04 08:18] LABS: PLATELET ESTIMATE DECREASED (NORMAL)
[2019-05-04 08:19] LABS: ANISOCYTOSIS 1+; TOXIC VACUOLATION 1+
[2019-05-04] MEDS: TIOTROPIUM INHALER/CAPSULE (SPIRIVA) INH SCH (08:21)
[2019-05-04] MEDS: SYMBICORT 80/4.5MCG INHALER 6GM INH SCH ×2 (08:22→21:43)
[2019-05-04] MEDS: VERAPAMIL 40 MG TAB PO SCH ×2 (09:00→21:00)
[2019-05-04] MEDS: MEROPENEM INJ 1 GM in IV 1 EA IV SCH (09:12)
[2019-05-04] MEDS: CALCITRIOL 0.25 MCG CAP (S0169) PO SCH (09:12)
[2019-05-04] MEDS: LACTOBACILLUS ACIDOPHILUS CAP (BACID) PO SCH ×3 (09:13→18:04)
[2019-05-04] MEDS: guaiFENesin 200 MG TAB PO SCH ×3 (09:13→21:47)
[2019-05-04] MEDS: THIAMINE 100 MG TAB PO SCH (09:13)
[2019-05-04] MEDS: FERROUS SULFATE 325MG TAB PO SCH ×2 (09:13→21:47)
[2019-05-04] MEDS: PANTOPRAZOLE 40MG TAB (PROTONIX) PO SCH (09:13)
[2019-05-04] MEDS: AMIODARONE 200 MG TAB (PACERONE) PO SCH (09:15)
[2019-05-04] MEDS: METOPROLOL TART 12.5 MG PER 1/2 TAB PO SCH ×2 (09:15→21:47)
--- NOTE | 2019-05-04 09:53 | IPNPDOC ---
Subjective Date Seen The patient was seen on 05/04/19. Subjective Chief Complaint/HPI Ms Fernandez is a 73 year old female admitted with a diagnosis of HCAP with Pleural Effusion. Pt was transferred from the ARU as her Eliquis is held for a thoracocentesis of a right lung effusion. She is seen laying in bed this morning and looks better than she has for several days now. PT reported she does feel good this morning; she is a little anxious about her upcoming procedure, but not abnormally so. She reported she continue to have some discomfort over the R side/lung but it is less uncomfortable than it was last week. Pt denied any further issues. Constitutional: Denies: Chills, Fever, Night Sweats Eyes: Denies: Pain ENT: Denies: Head Aches Skin: Denies: Rash Pulmonary: Reports: Cough ('getting better, no phlegm'); Denies: Dyspnea Cardiovascular: Reports: Chest Pain (see HPI ); Denies: Palpitations Gastrointestinal: Denies: Nausea, Vomiting, Abdominal Pain Musculoskeletal: Reports: Back Pain Neurological: Denies: Confusion Objective Physical Examination General Exam: Positive: Alert, Cooperative, No Acute Distress, Other (pt able to hold on and maneuver in bed for exam) Eye Exam: Positive: PERRLA, Conjunctiva & lids normal, EOMI; Negative: Sclera icteric ENT Exam: Positive: Atraumatic, Mucous membr. moist/pink, Pharynx Normal Neck Exam: Positive: Supple Chest Exam: Positive: Rales (at the right ), Diminished, Other; Negative: Rhonchi, Wheezing Heart Exam: Positive: Rate Normal, Regular Rhythm, Normal S1, Normal S2; Negative: Tachycardic, Murmurs, Rubs Abdomen Exam: Positive: Normal bowel sounds, Soft, Hepatospenomegaly Extremity Exam: Positive: Edema (mild b/l pedal edema ); Negative: Clubbing, Cyanosis Skin Exam: Positive: Nl turgor and temperature Neuro Exam: Positive: Normal Speech Psych Exam: Positive: Mood NL, Oriented x 3 Assessment /Plan Assessment Ms Fernandez is a 73 year old female with PMH of COPD, paroxysmal Afib, Hypertension, Hyperlipidemia, Reflux esophagitis ,Hiatal hernia, Gastritis, Hypothyroid, gout, osteoporosis, Benign esophageal stenosis, diverticulosis, internal hemorrhoids, iron def anemia, Pulmonary nodule stable, CKD, CHF with preserved EF, COPD, Chronic thrombocytopenia with splenomegaly since 2012 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 admitted to the ARU after surgical fixation of a Left comminuted fracture of the left hip after she slipped and fell on ice (04-10-19). She had a big hematoma as she was on Eliquis as an outpatient. Patient required 5 units of PRBCs for acute blood loss anemia and underwent and ORIF. Postoperatively patient became dehydrated due to poor oral intake and suffered an FREDY, requiring IVF for hydration. Since being in rehab, Ms. Fernandez further developed LLE 2+ pitting edema. Dr. Tay ordered a venous USG of the extremity. Results: No DVT. Pedal edema improved with PT. Patient was noted to have dropping platelets while in ARU. She was also noted to have rising creatinine. She was also having rising WBC. CXR worse than before so CT chest was done showed moderate right effusion with adjacent right lung infiltrate predominantly involving the right lower lobe. Tiny left effusion. Minor left lower lobe infiltrate. She was diagnosed with HCAP with possible parapneumonic effusion So was moved from ARU to Inpatient. Left hip Fracture s/p ORIF ARU to reassess for transfer on 05/05/19 consider subacute as pt may have plateaued with rehab. Pneumonia with effusion right > left possibility of HCAP On Meropenem; now d/c as pt completed 5d abx responded well to abx therapy IR guided drain of the effusion scheduled. per IR - hold Eliquis 2 days prior and 2 days post procedure. Hold Saturday and Saturday, procedure Saturday. Patient transferred to Med/Surg for obs while Eliquis held; scheduled to re- start 05/06 pm Diarrhea now improved probably due to antibiotics. will hold all stool softeners. will add probiotic. FREDY on CKD stage 3 with secondary hyperparathyroidism. due to intravascular volume depletion as noted by rise in Hb from recent baseline, rise in BUN/cr resolved with hydration and holding the diuretics Pedal edema due to possibly venous stasis, no DVT. contributed to by the very low albumin and acute on chronic anemia recently. improving Acute on chronic anemia this is due to acute blood loss into the hematoma after the fracture chronic anemia is due to Iron deficiency and some degree of anemia of chronic disease. Now hh stable in the 8 to 9 range. Continue iron. Chronic Thrombocytopenia since 2012 with massive splenomegaly with left upper quadrant mass. Splenomegaly in CT abdomen from 2013 This was discussed with Dr Wagoner patient has ITP with iron deficiency anemia. Bone was done this year which was normocellular and no hematological malignancy seen. No MDS. ITP which worsens during the acute events with bleeding Platelet at 95 will continue to monitor. May be down due to antibiotics Diastolic Congestive heart failure Now seems to be euvolemic though has edema and pleural effusion [place] 50706 on 04/16 to 1500. COPD continue home meds, symbicort in place of breo, spiriva and duonebs. Paroxysmal Afib continue metoprolol, amiodarone eliquis at home now held for procedure H/o Hypertension now with episodes of hypotension antihypertensives metoprolol and verapamil on high hold parameters. possibly due to intravascular depletion. Gastritis/reflux/hiatal hernia continue pantoprazole Hypothyroid continue Synthroid Gout continue allopurinol Monocytosis this is new patient did have a bone marrow biopsy earlier this year which was negative for any hematological malignancy. follow up Dr Wagoner Recurrent UTIs on suppressive prophylaxis with Fosfomycin; now held as on meropenem Plan/VTE VTE Prophylaxis Ordered?: Yes VS, I&O, 24H, Fishbone Vital Signs/I&O Vital Signs Date Time Temp Pulse Resp B/P (MAP) Pulse Ox O2 Delivery O2 Flow Rate FiO2 05/04/19 09:15 80 112/58 05/04/19 06:39 16 05/04/19 06:00 96.8 100 Nasal Cannula 2.0 I&O- Last 24 Hours up to 6 AM 05/04/19 06:00 Intake Total 1250 ml Output Total 400 ml Balance 850 ml Laboratory Data 24H LABS Laboratory Tests 2 05/03/19 11:32: Bedside Glucose (Misc Panel) 103 05/04/19 06:30: Immature Granulocyte % (Auto) , Nucleated Red Blood Cells % (auto) 0.0, Neutrophils 55, Lymphocytes (Manual) 24, Monocytes (Manual) 15H, Basophils (Manual) 1, Metamyelocytes 3H, Myelocytes 1H, Atypical Lymphocytes 1, Anisocytosis 1+, Macrocytosis 1+, Toxic Vacuolation 1+, Platelet Estimate DECREASED, Immature Platelet Fraction 8.5, Anion Gap 6L, Glomerular Filtration Rate > 60.0, Calcium Level 6.6L CBC/BMP Laboratory Tests 05/04/19 06:30 ROSALBA QUEEN PA-C May 04, 2019 09:53
[2019-05-04 12:26] LABS: PH BODY FLUID 7.469 UNITS (NOT ESTABLISHED); SOURCE, BODY FLUID pH PLEURAL
[2019-05-04 12:32] LABS: APPEARANCE, BODY FLUID CLOUDY (CLEAR); PLEURAL FL COLOR AMBER (COLORLESS); SOURCE, BODY FLUID PLEURAL
--- NOTE | 2019-05-04 12:35 | REP ---
Clinical: Status post thoracentesis. Technique: AP and lateral. Comparison: 04/29/2019. Findings: Moderate partially loculated right pleural effusion with right lower lobe parenchymal changes noted. Mediastinum and cardiac silhouette within normal limits. Left hemithorax relatively clear. No pneumothorax. Skeletal structures intact. Impression: Moderate right-sided pleuroparenchymal changes. Electronically Signed by Adiel David MD 05/04/2019 12:26 P
[2019-05-04 13:16] LABS: AMYLASE, BODY FLUID 14 U/L (NOT ESTABLISHED); LDH, BODY FLUID 1305 U/L (NOT ESTABLISHED); SOURCE, BODY FLUID AMYLASE PLEURAL; SOURCE, BODY FLUID GLUCOSE PLEURAL; SOURCE, BODY FLUID LDH PLEURAL; SOURCE, BODY FLUID TOT PROTEIN PLEURAL; TOTAL PROTEIN, BODY FLUID 3.3 G/DL (NOT ESTABLISHED)
[2019-05-04 14:00] VITALS: BP 116/58
[2019-05-04] MEDS: FOLIC ACID 1 MG TAB PO SCH (21:46)
[2019-05-04] MEDS: SIMVASTATIN 20 MG TAB PO SCH (21:46)
[2019-05-04] MEDS: allopurinoL 100 MG TAB PO SCH (21:46)
[2019-05-04] MEDS: CLOTRIMAZOLE 1% VAG CR 45 GM PV SCH (21:47)
[2019-05-04 22:00] VITALS: BP 117/58
[2019-05-05 06:00] VITALS: BP 134/63
[2019-05-05] MEDS: oxyCODONE 5MG TAB PO SCH ×3 (06:37→17:18)
[2019-05-05] MEDS: TIOTROPIUM INHALER/CAPSULE (SPIRIVA) INH SCH (08:00)
[2019-05-05] MEDS: IPRATROPIUM 0.5MG/ALBUTEROL 2.5MG INH SOL UD 3ML (DUONEB)(J7620) NEB SCH ×3 (08:00→23:47)
[2019-05-05] MEDS: guaiFENesin 200 MG TAB PO SCH ×3 (08:36→21:32)
[2019-05-05] MEDS: LACTOBACILLUS ACIDOPHILUS CAP (BACID) PO SCH ×3 (08:36→17:17)
[2019-05-05] MEDS: CALCITRIOL 0.25 MCG CAP (S0169) PO SCH (08:36)
[2019-05-05] MEDS: FERROUS SULFATE 325MG TAB PO SCH ×2 (08:37→21:32)
[2019-05-05] MEDS: THIAMINE 100 MG TAB PO SCH (08:37)
[2019-05-05] MEDS: PANTOPRAZOLE 40MG TAB (PROTONIX) PO SCH (08:37)
[2019-05-05] MEDS: METOPROLOL TART 12.5 MG PER 1/2 TAB PO SCH ×2 (08:39→21:32)
[2019-05-05] MEDS: VERAPAMIL 40 MG TAB PO SCH ×2 (08:39→21:00)
[2019-05-05] MEDS: AMIODARONE 200 MG TAB (PACERONE) PO SCH (08:41)
[2019-05-05] MEDS: SYMBICORT 80/4.5MCG INHALER 6GM INH SCH ×2 (09:00→20:24)
--- NOTE | 2019-05-05 10:14 | IPN ---
DATE: 05/03/2019 SUBJECTIVE: The patient was seen and examined at the bedside today morning. She is afebrile, hemodynamically stable. Her breathing is better. Renal function continues to improve. Creatinine was 1.07 yesterday. The patient is currently not on any diuretics. She denies any edema of the lower extremities. OBJECTIVE: VITAL SIGNS: Temperature is 98.1 degrees Fahrenheit, blood pressure 108/65, pulse is 84, respiratory of 16, saturating 100% on nasal cannula at two liters. INTAKE AND OUTPUT: There is no urine output recorded. Weight in the bed scale is 72.2 kg. PHYSICAL EXAMINATION: GENERAL: The patient is awake, alert, oriented times three, laying in bed, in no apparent distress. HEAD AND NECK: Extraocular muscles intact. Pupils equally round and reactive to light. Mucous membranes are moist. Neck is supple. There is no jugular venous distention (JVD). CARDIOVASCULAR: S1, S2, regular rate. Trace edema of the bilateral ankles. RESPIRATORY: Chest is clear to auscultation bilaterally. Bilateral equal air entry. No rales or rhonchi. ABDOMEN: Soft, positive bowel sounds, nontender. Palpable splenomegaly noted. MUSCULOSKELETAL: No clubbing or cyanosis. Pulses are 2+. CENTRAL NERVOUS SYSTEM (ROLLER SKATER): No focal deficit. Power is 5/5 in all extremities. LABORATORY REVIEW: CBC done yesterday showed a hemoglobin of 9.5 and BMP done yesterday showed a creatinine of 1.07. CURRENT INPATIENT MEDICATIONS: The patient's medications were all reviewed by me. She continues to be on IV meropenem at this time. The patient is currently not on any diuretics. ASSESSMENT AND PLAN: 1. Acute renal failure superimposed on chronic kidney disease. The patient's renal function has improved after stopping the diuretics. Creatinine has been fluctuating close to 1. 2. Right lower lobe pneumonia. The patient is currently on meropenem. White cell count is improving and her respiratory symptoms are significantly better too. 3. Chronic diastolic congestive heart failure. The patient's lower extremity edema is improving without need of diuretics. Primary team can give her diuretics as needed only. DISPOSITION: The patient's renal function is stable. Edema is optimized. Nephrology service is going to sign off at this moment. Please call nephrology service for any help in the management of this patient during this hospitalization.
--- NOTE | 2019-05-05 11:56 | IPNPDOC ---
Subjective Date Seen The patient was seen on 05/05/19. Subjective Chief Complaint/HPI Ms Fernandez is a 73 year old female admitted with a diagnosis of HCAP with Pleural Effusion. Pt was transferred from the ARU as her Eliquis is held for a thoracocentesis (done 05/04) of a right lung effusion. Pt is seen sitting in the recliner this morning with family present. She reported she is doing and feels much better. She has been sitting up in the chair for a couple of hours now. Pt denied any new or worsening symptoms. General: Reports: Normal Appetite; Denies: Chills, Night Sweats, Malaise Constitutional: Denies: Chills, Fever, Malaise, Night Sweats Eyes: Denies: Pain ENT: Denies: Head Aches Skin: Denies: Rash Pulmonary: Reports: Cough; Denies: Dyspnea Cardiovascular: Denies: Chest Pain, Palpitations, Lt Headedness Gastrointestinal: Denies: Abdominal Pain Genitourinary: Denies: Dysuria Hematologic: Denies: Bruising, Bleeding Excessively Musculoskeletal: Denies: Neck Pain, Back Pain, Shoulder Pain, Arm Pain, Hand Pain, Leg Pain, Foot Pain, Joint Pain, Muscle Pain, Spasms, Other Symptoms Psych: Reports: Mood Normal Objective Physical Examination General Exam: Positive: Alert, Cooperative, No Acute Distress, Other (pt able to hold on and maneuver in bed for exam) Eye Exam: Positive: PERRLA, Conjunctiva & lids normal, EOMI; Negative: Sclera icteric ENT Exam: Positive: Atraumatic, Mucous membr. moist/pink, Pharynx Normal Neck Exam: Positive: Supple Chest Exam: Positive: Rales (at the right ), Diminished (right ), Other; Negative: Rhonchi, Wheezing Heart Exam: Positive: Rate Normal, Regular Rhythm, Normal S1, Normal S2; Negative: Tachycardic, Murmurs, Rubs Abdomen Exam: Positive: Normal bowel sounds, Soft, Hepatospenomegaly Extremity Exam: Negative: Clubbing, Cyanosis, Edema Skin Exam: Positive: Nl turgor and temperature Neuro Exam: Positive: Normal Speech Psych Exam: Positive: Mood NL, Oriented x 3 Assessment /Plan Assessment Ms Fernandez is a 73 year old female with PMH of COPD, paroxysmal Afib, Hypertension, Hyperlipidemia, Reflux esophagitis ,Hiatal hernia, Gastritis, Hypothyroid, gout, osteoporosis, Benign esophageal stenosis, diverticulosis, internal hemorrhoids, iron def anemia, Pulmonary nodule stable, CKD, CHF with preserved EF, COPD, Chronic thrombocytopenia with splenomegaly since 2012 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 admitted to the ARU after surgical fixation of a Left comminuted fracture of the left hip after she slipped and fell on ice (04-10-19). She had a big hematoma as she was on Eliquis as an outpatient. Patient required 5 units of PRBCs for acute blood loss anemia and underwent and ORIF. Postoperatively patient became dehydrated due to poor oral intake and suffered an FREDY, requiring IVF for hydration. Since being in rehab, Ms. Fernandez further developed LLE 2+ pitting edema. Dr. Tay ordered a venous USG of the extremity. Results: No DVT. Pedal edema improved with PT. Patient was noted to have dropping platelets while in ARU. She was also noted to have rising creatinine. She was also having rising WBC. CXR worse than before so CT chest was done showed moderate right effusion with adjacent right lung infiltrate predominantly involving the right lower lobe. Tiny left effusion. Minor left lower lobe infiltrate. She was diagnosed with HCAP with possible parapneumonic effusion So was moved from ARU to Inpatient. Left hip Fracture s/p ORIF ARU assessment completed; recommendations to follow consider subacute as pt may have plateaued with rehab. Pneumonia with effusion right > left possibility of HCAP Completed 5 days Meropenem responded well to abx therapy per IR - hold Eliquis 2 days prior and 2 days post procedure. Hold Saturday and Saturday, procedure Saturday. Patient transferred to Med/Surg for obs while Eliquis held; scheduled to re- start 05/06 pm IR guided drain of the effusion done 05/04/19; WBC and RBC seen, no organisms. Culture pending. CXR 05/04 Impression: "Moderate right-sided pleuroparenchymal changes." Diarrhea now improved probably due to antibiotics. will hold all stool softeners. will add probiotic. FREDY on CKD stage 3 with secondary hyperparathyroidism. due to intravascular volume depletion as noted by rise in Hb from recent baseline, rise in BUN/cr resolved with hydration and holding the diuretics Pedal edema due to possibly venous stasis, no DVT. contributed to by the very low albumin and acute on chronic anemia recently. improving Acute on chronic anemia this is due to acute blood loss into the hematoma after the fracture chronic anemia is due to Iron deficiency and some degree of anemia of chronic disease. Now hh stable above 9 Continue iron. Chronic Thrombocytopenia since 2013 with massive splenomegaly with left upper quadrant mass. Splenomegaly in CT abdomen from 2013 This was discussed with Dr Wagoner patient has ITP with iron deficiency anemia. Bone was done this year which was normocellular and no hematological malignancy seen. No MDS. ITP which worsens during acute bleeding events Platelet at 78 will continue to monitor. May be down due to antibiotics Diastolic Congestive heart failure Now seems to be euvolemic though has pleural effusion [place] 56655 on 04/16 to 1500 - pt does appear volume overloaded at this time; continue to hold diuretics and reassess daily COPD continue home meds, symbicort in place of breo, spiriva and duonebs. Paroxysmal Afib continue metoprolol, amiodarone Eliquis on hold per thoracentesis; resume 05/06/19 H/O Hypertension now with episodes of hypotension antihypertensives metoprolol and verapamil on high hold parameters. possibly due to intravascular depletion. Gastritis/reflux/hiatal hernia continue pantoprazole Hypothyroid continue Synthroid Gout continue allopurinol Monocytosis this is new patient did have a bone marrow biopsy earlier this year which was negative for any hematological malignancy. follow up Dr Wagoner Recurrent UTIs on suppressive prophylaxis with Fosfomycin; now held as on meropenem Plan/VTE VTE Prophylaxis Ordered?: Yes VS, I&O, 24H, Fishbone Vital Signs/I&O Vital Signs Date Time Temp Pulse Resp B/P (MAP) Pulse Ox O2 Delivery O2 Flow Rate FiO2 05/05/19 07:08 16 Room Air 05/05/19 06:00 98.5 69 134/63 (86) 95 05/04/19 22:00 I&O- Last 24 Hours up to 6 AM 05/05/19 06:00 Intake Total 1410 ml Output Total 425 ml Balance 985 ml Laboratory Data Microbiology Microbiology 05/04/19 Acid Fast Stain, Received Pending 05/04/19 Mycobacterial Culture, Received Pending 05/04/19 Fungal Smear, Received Pending 05/04/19 Fungal Culture, Received Pending 05/04/19 Gram Stain - Final, Resulted 05/04/19 Body Fluid Culture, Resulted Pending ROSALBA QUEEN PA-C May 05, 2019 11:56
[2019-05-05 14:00] VITALS: BP 125/60
[2019-05-05] MEDS ORDERED: APIXABAN 5 MG TAB (ELIQUIS) PO SCH (21:00)
[2019-05-05] MEDS: FOLIC ACID 1 MG TAB PO SCH (21:32)
[2019-05-05] MEDS: SIMVASTATIN 20 MG TAB PO SCH (21:32)
[2019-05-05] MEDS: allopurinoL 100 MG TAB PO SCH (21:33)
[2019-05-05] MEDS: CLOTRIMAZOLE 1% VAG CR 45 GM PV SCH (21:49)
[2019-05-05 22:00] VITALS: BP 124/66
[2019-05-06 06:00] VITALS: BP 108/64
[2019-05-06] MEDS: oxyCODONE 5MG TAB PO SCH ×3 (06:47→16:55)
[2019-05-06] MEDS: IPRATROPIUM 0.5MG/ALBUTEROL 2.5MG INH SOL UD 3ML (DUONEB)(J7620) NEB SCH ×2 (08:00→15:29)
[2019-05-06] MEDS: guaiFENesin 200 MG TAB PO SCH ×3 (08:16→21:48)
[2019-05-06] MEDS: LACTOBACILLUS ACIDOPHILUS CAP (BACID) PO SCH ×3 (08:16→16:54)
[2019-05-06] MEDS: AMIODARONE 200 MG TAB (PACERONE) PO SCH (08:17)
[2019-05-06] MEDS: CALCITRIOL 0.25 MCG CAP (S0169) PO SCH (08:17)
[2019-05-06] MEDS: FERROUS SULFATE 325MG TAB PO SCH ×2 (08:17→21:48)
[2019-05-06] MEDS: METOPROLOL TART 12.5 MG PER 1/2 TAB PO SCH ×2 (08:18→21:00)
[2019-05-06] MEDS: VERAPAMIL 40 MG TAB PO SCH ×2 (08:18→21:00)
[2019-05-06] MEDS: PANTOPRAZOLE 40MG TAB (PROTONIX) PO SCH (08:18)
[2019-05-06] MEDS: THIAMINE 100 MG TAB PO SCH (08:18)
[2019-05-06] MEDS: TIOTROPIUM INHALER/CAPSULE (SPIRIVA) INH SCH (08:32)
[2019-05-06] MEDS: SYMBICORT 80/4.5MCG INHALER 6GM INH SCH ×2 (08:32→21:05)
[2019-05-06 10:38] LABS: HEMATOCRIT 32.7 % (36.0-47.0); MEAN CORPUSCULAR HEMOGLOBIN 27.5 pg (27.0-33.0); MEAN CORPUSCULAR HGB CONC 27.5 g/dl (32.0-36.5); RED BLOOD COUNT 3.27 10^6/uL (4.00-5.40); WHITE BLOOD COUNT 6.8 10^3/uL (4.0-10.0)
[2019-05-06 10:42] LABS: PLATELET COUNT, AUTOMATED 70 10^3/uL (150-450)
[2019-05-06 10:56] LABS: BLOOD UREA NITROGEN 13 MG/DL (7-18); CARBON DIOXIDE LEVEL 23 MEQ/L (21-32); CHLORIDE LEVEL 110 MEQ/L (98-107); CREATININE FOR GFR 0.54 MG/DL (0.55-1.30); GLOMERULAR FILTRATION RATE > 60.0 (>39); GLUCOSE, FASTING 78 MG/DL (70-100); POTASSIUM SERUM 4.5 MEQ/L (3.5-5.1); SODIUM LEVEL 139 MEQ/L (136-145)
[2019-05-06 14:00] VITALS: BP 104/52
[2019-05-06] MEDS: CLOTRIMAZOLE 1% VAG CR 45 GM PV SCH (21:00)
[2019-05-06] MEDS: SIMVASTATIN 20 MG TAB PO SCH (21:48)
[2019-05-06] MEDS: allopurinoL 100 MG TAB PO SCH (21:48)
[2019-05-06] MEDS: APIXABAN 5 MG TAB (ELIQUIS) PO SCH (21:48)
[2019-05-06] MEDS: FOLIC ACID 1 MG TAB PO SCH (21:48)
[2019-05-07 06:00] VITALS: BP 135/62
[2019-05-07 06:14] LABS: HEMATOCRIT 32.4 % (36.0-47.0); HEMOGLOBIN 8.8 g/dl (12.0-15.5); MEAN CORPUSCULAR HEMOGLOBIN 27.3 pg (27.0-33.0); MEAN CORPUSCULAR HGB CONC 27.2 g/dl (32.0-36.5); MEAN CORPUSCULAR VOLUME 100.6 fl (80.0-96.0); RED BLOOD COUNT 3.22 10^6/uL (4.00-5.40); WHITE BLOOD COUNT 6.6 10^3/uL (4.0-10.0)
[2019-05-07 06:15] LABS: PLATELET COUNT, AUTOMATED 70 10^3/uL (150-450)
[2019-05-07 06:30] LABS: BLOOD UREA NITROGEN 12 MG/DL (7-18); CALCIUM LEVEL 6.3 MG/DL (8.8-10.2); CARBON DIOXIDE LEVEL 24 MEQ/L (21-32); CHLORIDE LEVEL 111 MEQ/L (98-107); CREATININE FOR GFR 0.63 MG/DL (0.55-1.30); GLOMERULAR FILTRATION RATE > 60.0 (>39); GLUCOSE, FASTING 77 MG/DL (70-100); POTASSIUM SERUM 4.6 MEQ/L (3.5-5.1); SODIUM LEVEL 141 MEQ/L (136-145)
[2019-05-07] MEDS: FERROUS SULFATE 325MG TAB PO SCH ×2 (08:27→20:11)
[2019-05-07] MEDS: guaiFENesin 200 MG TAB PO SCH ×3 (08:28→20:11)
[2019-05-07] MEDS: LACTOBACILLUS ACIDOPHILUS CAP (BACID) PO SCH ×3 (08:28→17:11)
[2019-05-07] MEDS: APIXABAN 5 MG TAB (ELIQUIS) PO SCH ×2 (08:28→20:09)
[2019-05-07] MEDS: oxyCODONE 5MG TAB PO SCH ×3 (08:28→17:00)
[2019-05-07] MEDS: METOPROLOL TART 12.5 MG PER 1/2 TAB PO SCH ×2 (08:29→20:10)
[2019-05-07] MEDS: CALCITRIOL 0.25 MCG CAP (S0169) PO SCH (08:29)
[2019-05-07] MEDS: VERAPAMIL 40 MG TAB PO SCH ×2 (08:29→20:10)
[2019-05-07] MEDS: AMIODARONE 200 MG TAB (PACERONE) PO SCH (08:29)
[2019-05-07] MEDS: THIAMINE 100 MG TAB PO SCH (08:29)
[2019-05-07] MEDS: PANTOPRAZOLE 40MG TAB (PROTONIX) PO SCH (08:29)
[2019-05-07] MEDS: TIOTROPIUM INHALER/CAPSULE (SPIRIVA) INH SCH (08:40)
[2019-05-07] MEDS: IPRATROPIUM 0.5MG/ALBUTEROL 2.5MG INH SOL UD 3ML (DUONEB)(J7620) NEB SCH ×3 (08:40→15:32)
[2019-05-07 11:34] LABS: ALBUMIN 1.6 GM/DL (3.2-5.2); ALT/SGPT < 6 U/L (12-78); BILIRUBIN,DIRECT 0.2 MG/DL (0.0-0.2); BILIRUBIN,TOTAL 0.5 MG/DL (0.2-1.0); TOTAL PROTEIN 4.9 GM/DL (6.4-8.2)
[2019-05-07] MEDS: SYMBICORT 80/4.5MCG INHALER 6GM INH SCH ×2 (11:37→19:43)
--- NOTE | 2019-05-07 12:34 | REP ---
Ultrasound-guided thoracentesis The procedure was performed by FAM Welsh, under the direct supervision of Dr. Jones The risks and benefits of the procedure were explained to the patient and informed consent was obtained both verbally and written. Directly prior to the start of the procedure, a formal timeout was completed in the exam room. Loculated pleural fluid on the right lung zone was localized using ultrasound guidance. The skin was prepped and draped in a sterile fashion. 5 ml of 1% lidocaine 10 mg/ml was used as a local anesthetic. Using ultrasound guidance, an 8-Turkish multi side-hole catheter was inserted and advanced into the fluid. 20 ml of sarah colored fluid was withdrawn and sent to the lab for analysis. The patient tolerated the procedure well and there were no immediate complications. After the appropriate amount of monitored convalescence, the patient was discharged from the department. Reviewed by FAM Cobb 05/04/2019 05:30 P Electronically Signed by Deshawn Jones MD 05/07/2019 12:25 P
[2019-05-07] MEDS: allopurinoL 100 MG TAB PO SCH (20:09)
[2019-05-07] MEDS: SIMVASTATIN 20 MG TAB PO SCH (20:09)
[2019-05-07] MEDS: FOLIC ACID 1 MG TAB PO SCH (20:10)
[2019-05-07] MEDS: CLOTRIMAZOLE 1% VAG CR 45 GM PV SCH (20:11)
[2019-05-08 06:00] VITALS: BP 108/55
[2019-05-08 06:26] LABS: HEMATOCRIT 30.3 % (36.0-47.0); HEMOGLOBIN 8.5 g/dl (12.0-15.5); MEAN CORPUSCULAR HGB CONC 28.1 g/dl (32.0-36.5); MEAN CORPUSCULAR VOLUME 99.7 fl (80.0-96.0); RED BLOOD COUNT 3.04 10^6/uL (4.00-5.40); WHITE BLOOD COUNT 6.1 10^3/uL (4.0-10.0)
[2019-05-08 06:28] LABS: PLATELET COUNT, AUTOMATED 77 10^3/uL (150-450)
[2019-05-08 06:47] LABS: BLOOD UREA NITROGEN 10 MG/DL (7-18); CARBON DIOXIDE LEVEL 21 MEQ/L (21-32); CHLORIDE LEVEL 111 MEQ/L (98-107); CREATININE FOR GFR 0.46 MG/DL (0.55-1.30); GLOMERULAR FILTRATION RATE > 60.0 (>39); GLUCOSE, FASTING 63 MG/DL (70-100); POTASSIUM SERUM 4.4 MEQ/L (3.5-5.1); SODIUM LEVEL 140 MEQ/L (136-145)
[2019-05-08] MEDS: IPRATROPIUM 0.5MG/ALBUTEROL 2.5MG INH SOL UD 3ML (DUONEB)(J7620) NEB SCH ×2 (08:00)
[2019-05-08] MEDS: oxyCODONE 5MG TAB PO SCH (08:23)
[2019-05-08] MEDS: SYMBICORT 80/4.5MCG INHALER 6GM INH SCH (08:25)
[2019-05-08] MEDS: TIOTROPIUM INHALER/CAPSULE (SPIRIVA) INH SCH (08:26)
[2019-05-08] MEDS: VERAPAMIL 40 MG TAB PO SCH (09:00)
[2019-05-08 09:52] VITALS: BP 129/50
[2019-05-08] MEDS: METOPROLOL TART 12.5 MG PER 1/2 TAB PO SCH (09:52)
[2019-05-08] MEDS: LACTOBACILLUS ACIDOPHILUS CAP (BACID) PO SCH (09:52)
[2019-05-08] MEDS: FERROUS SULFATE 325MG TAB PO SCH (09:52)
[2019-05-08] MEDS: guaiFENesin 200 MG TAB PO SCH (09:52)
[2019-05-08] MEDS: CALCITRIOL 0.25 MCG CAP (S0169) PO SCH (09:53)
[2019-05-08] MEDS: APIXABAN 5 MG TAB (ELIQUIS) PO SCH (09:53)
[2019-05-08] MEDS: AMIODARONE 200 MG TAB (PACERONE) PO SCH (09:53)
[2019-05-08] MEDS: THIAMINE 100 MG TAB PO SCH (09:53)
[2019-05-08] MEDS: PANTOPRAZOLE 40MG TAB (PROTONIX) PO SCH (09:53)
[2019-05-08] MEDS ORDERED: VERA40TA PO (10:30)
[2019-05-08] MEDS ORDERED: IPRA0.00 NEB (10:30)
--- NOTE | 2019-05-11 15:12 | DS.PDOC ---
Discharge Summary General Date of Admission May 01, 2019 at 14:58 Date of Discharge 05/08/19 Discharge Summary PROCEDURES PERFORMED DURING STAY: right thoracocentesis DISCHARGE DIAGNOSES: Left hip communitated fracture s/p fall on ice sp ORIF with IM nailing. 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 COMPLICATIONS/CHIEF COMPLAINT: Hcap With Pleural Infusion. 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 admitted to the ARU after surgical fixation of a Left comminuted fracture of the left hip after she slipped and fell on ice (04-10-19). She had a big hematoma as she was on Eliquis as an outpatient. Patient required 5 units of PRBCs for acute blood loss anemia and underwent ORIF on 04/12/19. Postoperatively patient became dehydrated due to poor oral intake and suffered an FREDY, requiring IVF for hydration. After resolution of her acute issues she was discharged to rehab on 04/14/19. Since being in rehab, Ms. Fernandez further developed LLE 2+ pitting edema. Dr. Tay ordered a venous USG of the extremity. Results: No DVT. Pedal edema improved with PT. Patient was noted to have dropping platelets while in ARU. She was also noted to have rising creatinine. She was also having rising WBC. CXR worse than before so CT chest was done showed moderate right effusion with adjacent right lung infiltrate predominantly involving the right lower lobe. Tiny left effusion. Minor left lower lobe infiltrate. She was diagno sed with HCAP with possible parapneumonic effusion So was moved from ARU to Inpatient. Left hip Fracture s/p ORIF on 04/12/19 ARU assessment completed; recommendations to follow consider subacute as pt may have plateaued with rehab. Pneumonia with effusion right > left HCAP Completed 5 days Meropenem responded well to abx therapy per IR - hold Eliquis 2 days prior and 2 days post procedure. Hold Saturday and Saturday, procedure Saturday. Patient transferred to Med/Surg for obs while Eliquis held; scheduled to re- start 05/06 pm IR guided drain of the effusion done 05/04/19; WBC and RBC seen, no organisms. Culture pending. CXR 05/04 Impression: "Moderate right-sided pleuroparenchymal changes." Diarrhea now improved probably due to antibiotics. will hold all stool softeners. will add probiotic. FREDY on CKD stage 3 with secondary hyperparathyroidism. due to intravascular volume depletion as noted by rise in Hb from recent baseline, rise in BUN/cr resolved with hydration and holding the diuretics Pedal edema due to possibly venous stasis, no DVT. contributed to by the very low albumin and acute on chronic anemia recently. improving Acute on chronic anemia this is due to acute blood loss into the hematoma after the fracture chronic anemia is due to Iron deficiency and some degree of anemia of chronic disease. Now hh stable above 9 Continue iron. Chronic Thrombocytopenia since 2012 with massive splenomegaly with left upper quadrant mass. Splenomegaly in CT abdomen from 2012 This was discussed with Dr Wagoner patient has ITP with iron deficiency anemia. Bone was done this year which was normocellular and no hematological malignancy seen. No MDS. ITP which worsens during acute bleeding events Platelet at 78.continue to monitor. May be down due to antibiotics Diastolic Congestive heart failure Now seems to be euvolemic though has pleural effusion [place] [address]481 on 04/16 to 1500 Appears euvolemic at present, diuretics restarted. COPD continue home meds, symbicort in place of breo, spiriva and duonebs. Paroxysmal Afib continue metoprolol, amiodarone Eliquis on hold per thoracentesis; resumed 05/06/19 H/O Hypertension now with episodes of hypotension antihypertensives metoprolol and verapamil on high hold parameters. possibly due to intravascular depletion. Gastritis/reflux/hiatal hernia continue pantoprazole Hypothyroid continue Synthroid Gout continue allopurinol Monocytosis this is new patient did have a bone marrow biopsy earlier this year which was negative for any hematological malignancy. follow up Dr Wagoner Recurrent UTIs on suppressive prophylaxis with Fosfomycin continue DISCHARGE MEDICATIONS: Please see below. ALLERGIES: Please see below. PHYSICAL EXAMINATION ON DISCHARGE: VITAL SIGNS: Please see below. General Exam: Positive: Alert, Cooperative, No Acute Distress, Other (pt able to hold on and maneuver in bed for exam) Eye Exam: Positive: PERRLA, Conjunctiva & lids normal, EOMI; Negative: Sclera icteric ENT Exam: Positive: Atraumatic, Mucous membr. moist/pink, Pharynx Normal Neck Exam: Positive: Supple Chest Exam: Positive: Rales (at the right ), Diminished (right ), Other; Negative: Rhonchi, Wheezing Heart Exam: Positive: Rate Normal, Regular Rhythm, Normal S1, Normal S2; Negative: Tachycardic, Murmurs, Rubs Abdomen Exam: Positive: Normal bowel sounds, Soft, Hepatospenomegaly Extremity Exam: Negative: Clubbing, Cyanosis, Edema Skin Exam: Positive: Nl turgor and temperature Neuro Exam: Positive: Normal Speech Psych Exam: Positive: Mood NL, Oriented x 3 LABORATORY DATA: Please see below. ACTIVITY: [As tolerated]. DIET: As tolerated DISPOSITION: [facility]. DISCHARGE INSTRUCTIONS: Follow up with orthopedics Dr Paredes in 1 week DISCHARGE CONDITION: [Stable]. TIME SPENT ON DISCHARGE: 35 minutes. Vital Signs/I&Os Vital Signs Date Time Temp Pulse Resp B/P (MAP) Pulse Ox O2 Delivery O2 Flow Rate FiO2 05/08/19 09:52 82 129/50 05/08/19 08:23 18 05/08/19 06:00 97.9 95 Room Air 05/07/19 06:00 2.0 Microbiology Microbiology 05/04/19 Acid Fast Stain, Received Pending 05/04/19 Mycobacterial Culture, Received Pending 05/04/19 Fungal Smear, Received Pending 05/04/19 Fungal Culture, Received Pending 05/04/19 Gram Stain - Final, Complete 05/04/19 Body Fluid Culture - Final, Complete Discharge Medications Scheduled Acetaminophen (Acetaminophen) 500 Mg Tablet, 1,000 MG PO TID Allopurinol (Allopurinol) 100 Mg Tab, 100 MG PO DAILY, (Reported) Amiodarone HCl (Pacerone) 100 Mg Tab, 200 MG PO DAILY, (Reported) Apixaban (Eliquis) 5 Mg Tablet, 5 MG PO BID Budesonide/Formoterol (Symbicort 80-4.5 Mcg Inhaler) 6.9 Gm Hfa.aer.ad, 2 PUFF INH BID Calcitriol (Calcitriol) 0.25 Mcg Capsule, 0.5 MCG PO DAILY Denosumab Injection (Prolia) 60 Mg/1 Ml Syringe, 60 MG SC [id number], (Reported) Docusate Sodium (Docusate Sodium) 100 Mg Capsule, 100 MG PO BID Ferrous Sulfate (Ferrous Sulfate) 325 Mg Tablet, 325 MG PO BID Fluticasone/Vilanterol (Breo Ellipta 200-25 Mcg INH) 1 Each Blst.w.dev, 1 PUFF INH DAILY, (Reported) Folic Acid (Folic Acid) 1 Mg Tab, 1 MG PO DAILY, (Reported) Guaifenesin (Guaifenesin) 200 Mg Tablet, 400 MG PO TID Ipratropium/Albuterol Sulfate (Iprat-Albut 0.5-3(2.5) mg/3 ml) 3 Ml Ampul.neb, 3 ML NEB RTID Levothyroxine Sodium (Levothyroxine Sodium) 137 Mcg Tablet, 137 MCG PO DAILY, (Reported) Lidocaine (Lidocaine) 5% Adh..patch, 1 PATCH TD DAILY Methyl Salicylate/Menthol (Muscle Rub Cream) 85 Gm Cream..g., 1 DOSE TOP TID Metoprolol Tartrate (Metoprolol Tartrate) 25 Mg Tab, 12.5 MG PO BID, (Reported) Non-Formulary Medication (Mouthkote Solution) 60 Ml Brixey, 2 SPRAYS MT QID Oxycodone HCl (Oxycodone HCl) 5 Mg Tablet, 2.5 MG PO TID@0700,1200,1700 Pantoprazole Sodium (Pantoprazole Sodium) 40 Mg Tablet.dr, 40 MG PO DAILY Senna (Senna Lax) 8.6 Mg Tablet, 1 TAB PO QHS Simvastatin (Simvastatin) 20 Mg Tab, 20 MG PO DAILY, (Reported) Thiamine Mononitrate (Vit B1) (Vitamin B-1) 100 Mg Tablet, 100 MG PO DAILY, (Reported) Tiotropium [place] (Spiriva) 18 Mcg Cap, 1 PUFFS INH DAILY, (Reported) Verapamil HCl (Verapamil HCl) 40 Mg Tablet, 40 MG PO BID [Fosfomycin Tromethamine] 3 GM/PKT PACKET, 3 GM PO Q7D Scheduled PRN Albuterol Sulfate (Albuterol Sulfate Hfa) 8.5 Gm Hfa.aer.ad, 1 INH INH q4-6h PRN for SOB/WHEEZING, (Reported) Magnesium Hydroxide (Milk of Magnesia) 400 Mg/5 Ml Oral.susp, 30 ML PO DAILYPRN PRN for CONSTIPATION Trazodone HCl (Trazodone HCl) 50 Mg Tablet, 25 MG PO QHS PRN for INSOMNIA Allergies Coded Allergies: tetracycline (Verified Allergy, Severe, swelling, peeling of the tongue, 02/19/19) zolpidem (Verified Allergy, Severe, respiratory distress, 02/19/19) Sulfa (Sulfonamide Antibiotics) (Verified Allergy, Intermediate, hives, 02/19/19) Penicillins (Verified Adverse Reaction, Intermediate, N/V, 02/19/19) tramadol (Verified Adverse Reaction, Intermediate, N/V, 02/19/19) YANN CARROLL MD May 11, 2019 15:12
== END 2019-05-08 11:45 | DRG 186 ==
LOC: M MSPAV 14:58
PROVIDERS: ADMIT Internal Medicine Nephrology; ATTEND Internal Medicine Nephrology
PROC: 0W993ZZ Drainage of Right Pleural Cavity, Percutaneous Approach (ICD-10-PCS; principal; 2019-05-04 11:09)
DX: J90 Pleural effusion, not elsewhere classified (principal); J18.9 Pneumonia, unspecified organism; I50.32 Chronic diastolic (congestive) heart failure; D62 Acute posthemorrhagic anemia; N17.9 Acute kidney failure, unspecified; S72.145D Nondisplaced intertrochanteric fracture of left femur, subsequent encounter for closed fracture with routine healing; J44.9 Chronic obstructive pulmonary disease, unspecified; I48.0 Paroxysmal atrial fibrillation; E78.5 Hyperlipidemia, unspecified; K44.9 Diaphragmatic hernia without obstruction or gangrene; E03.9 Hypothyroidism, unspecified; M10.9 Gout, unspecified; M81.0 Age-related osteoporosis without current pathological fracture; K57.30 Diverticulosis of large intestine without perforation or abscess without bleeding; K64.8 Other hemorrhoids; R91.1 Solitary pulmonary nodule; D69.6 Thrombocytopenia, unspecified; N18.3 Chronic kidney disease, stage 3 (moderate); K21.9 Gastro-esophageal reflux disease without esophagitis; R19.7 Diarrhea, unspecified; Z79.899 Other long term (current) drug therapy; Z88.0 Allergy status to penicillin; Z88.8 Allergy status to other drugs, medicaments and biological substances; E86.0 Dehydration; D72.821 Monocytosis (symptomatic)

== ENCOUNTER → 2019-05-12 | Outpatient (REF) ==
[~2019-05-12] MED LIST changes: +VERA40TA PO
[2019-05-12 12:17] LABS: HEMATOCRIT 41.8 % (36.0-47.0); HEMOGLOBIN 11.5 g/dl (12.0-15.5); MEAN CORPUSCULAR HEMOGLOBIN 27.6 pg (27.0-33.0); MEAN CORPUSCULAR HGB CONC 27.5 g/dl (32.0-36.5); MEAN CORPUSCULAR VOLUME 100.2 fl (80.0-96.0); PLATELET COUNT, AUTOMATED 142 10^3/uL (150-450); RED BLOOD COUNT 4.17 10^6/uL (4.00-5.40); WHITE BLOOD COUNT 7.8 10^3/uL (4.0-10.0)
[2019-05-12 12:54] LABS: BLOOD UREA NITROGEN 12 MG/DL (7-18); CALCIUM LEVEL 6.7 MG/DL (8.8-10.2); CARBON DIOXIDE LEVEL 21 MEQ/L (21-32); CHLORIDE LEVEL 105 MEQ/L (98-107); CREATININE FOR GFR 0.81 MG/DL (0.55-1.30); GLOMERULAR FILTRATION RATE > 60.0 (>39); GLUCOSE, FASTING 68 MG/DL (70-100); NT-PRO BNP 680 PG/ML (<125); POTASSIUM SERUM 3.6 MEQ/L (3.5-5.1); SODIUM LEVEL 136 MEQ/L (136-145)
== END ==
PROVIDERS: ATTEND Internal Medicine
DX: I50.9 Heart failure, unspecified (principal)

== ENCOUNTER → 2019-05-15 | Outpatient (REF) ==
[2019-05-15 10:11] LABS: HEMATOCRIT 33.9 % (36.0-47.0); HEMOGLOBIN 9.5 g/dl (12.0-15.5); RED BLOOD COUNT 3.39 10^6/uL (4.00-5.40); WHITE BLOOD COUNT 4.3 10^3/uL (4.0-10.0)
[2019-05-15 10:12] LABS: PLATELET COUNT, AUTOMATED 96 10^3/uL (150-450)
[2019-05-15 10:29] LABS: BLOOD UREA NITROGEN 12 MG/DL (7-18); CALCIUM LEVEL 6.5 MG/DL (8.8-10.2); CARBON DIOXIDE LEVEL 24 MEQ/L (21-32); CHLORIDE LEVEL 109 MEQ/L (98-107); CREATININE FOR GFR 0.74 MG/DL (0.55-1.30); GLOMERULAR FILTRATION RATE > 60.0 (>39); GLUCOSE, FASTING 63 MG/DL (70-100); POTASSIUM SERUM 3.6 MEQ/L (3.5-5.1); SODIUM LEVEL 141 MEQ/L (136-145)
== END ==
PROVIDERS: ATTEND Internal Medicine
DX: R19.7 Diarrhea, unspecified (principal)

== ENCOUNTER → 2019-05-17 | Outpatient (REF) ==
[2019-05-17 13:08] LABS: HEMATOCRIT 35.4 % (36.0-47.0); HEMOGLOBIN 9.8 g/dl (12.0-15.5); MEAN CORPUSCULAR HEMOGLOBIN 27.4 pg (27.0-33.0); MEAN CORPUSCULAR HGB CONC 27.7 g/dl (32.0-36.5); MEAN CORPUSCULAR VOLUME 98.9 fl (80.0-96.0); PLATELET COUNT, AUTOMATED 102 10^3/uL (150-450); RED BLOOD COUNT 3.58 10^6/uL (4.00-5.40)
== END ==
PROVIDERS: ATTEND Internal Medicine
DX: D64.9 Anemia, unspecified (principal)

== ENCOUNTER → 2019-05-18 | Outpatient (REF) ==
[2019-05-18 11:53] LABS: HEMOGLOBIN 9.9 g/dl (12.0-15.5); MEAN CORPUSCULAR HEMOGLOBIN 28.8 pg (27.0-33.0); MEAN CORPUSCULAR HGB CONC 29.1 g/dl (32.0-36.5); MEAN CORPUSCULAR VOLUME 98.8 fl (80.0-96.0); PLATELET COUNT, AUTOMATED 102 10^3/uL (150-450); RED BLOOD COUNT 3.44 10^6/uL (4.00-5.40); WHITE BLOOD COUNT 4.8 10^3/uL (4.0-10.0)
== END ==
PROVIDERS: ATTEND Internal Medicine
DX: D64.9 Anemia, unspecified (principal)

== ENCOUNTER → 2019-05-19 | Outpatient (REF) | payer MEDICARE, OTHER ==
[2019-05-19 14:54] LABS: BLOOD UREA NITROGEN 12 MG/DL (7-18); CALCIUM LEVEL 6.4 MG/DL (8.8-10.2); CARBON DIOXIDE LEVEL 26 MEQ/L (21-32); CHLORIDE LEVEL 103 MEQ/L (98-107); CREATININE FOR GFR 0.72 MG/DL (0.55-1.30); GLOMERULAR FILTRATION RATE > 60.0 (>39); GLUCOSE, FASTING 89 MG/DL (70-100); NT-PRO BNP 545 PG/ML (<125); POTASSIUM SERUM 2.8 MEQ/L (3.5-5.1); SODIUM LEVEL 140 MEQ/L (136-145)
== END ==
PROVIDERS: ATTEND Physician Assistant
DX: D64.9 Anemia, unspecified (principal)

== ENCOUNTER → 2019-05-20 | Outpatient (REF) | PROVIDERS: ATTEND Internal Medicine | DX: E87.6 Hypokalemia (principal) ==

== ENCOUNTER → 2019-05-20 | Outpatient (REF) ==
--- NOTE | 2019-05-20 13:47 | REP ---
Left foot series: Four views. History: Dorsal left foot pain. Lateral pain. Comparison left foot radiographs: March 19, 2018. Findings: Four views of the left foot demonstrate diffuse osteopenia. Vascular calcifications noted. There is Achilles calcaneal spurring. No fracture or bony destructive lesion is seen. No periosteal reaction is appreciated. There is minimal spurring at the first MTP joint. Impression: Vascular calcification. Spurring. No acute bony abnormality. Electronically Signed by Quirino Herrera MD 05/20/2019 01:39 P
== END ==
PROVIDERS: ATTEND Internal Medicine
DX: M79.672 Pain in left foot (principal); M77.32 Calcaneal spur, left foot

== ENCOUNTER → 2019-05-22 | Outpatient (REF) ==
[~2019-05-22] MED LIST changes: -VERA120T2 PO; +VERA120T9 PO
[2019-05-22 11:36] LABS: HEMATOCRIT 33.4 % (36.0-47.0); HEMOGLOBIN 9.5 g/dl (12.0-15.5); MEAN CORPUSCULAR HEMOGLOBIN 28.1 pg (27.0-33.0); MEAN CORPUSCULAR HGB CONC 28.4 g/dl (32.0-36.5); MEAN CORPUSCULAR VOLUME 98.8 fl (80.0-96.0); PLATELET COUNT, AUTOMATED 103 10^3/uL (150-450); RED BLOOD COUNT 3.38 10^6/uL (4.00-5.40); WHITE BLOOD COUNT 4.2 10^3/uL (4.0-10.0)
[2019-05-22 12:03] LABS: BLOOD UREA NITROGEN 12 MG/DL (7-18); CALCIUM LEVEL 6.9 MG/DL (8.8-10.2); CARBON DIOXIDE LEVEL 27 MEQ/L (21-32); CHLORIDE LEVEL 109 MEQ/L (98-107); CREATININE FOR GFR 0.62 MG/DL (0.55-1.30); GLOMERULAR FILTRATION RATE > 60.0 (>39); GLUCOSE, FASTING 72 MG/DL (70-100); POTASSIUM SERUM 4.6 MEQ/L (3.5-5.1); SODIUM LEVEL 144 MEQ/L (136-145)
== END ==
PROVIDERS: ATTEND Internal Medicine
DX: E87.6 Hypokalemia (principal)

== ENCOUNTER → 2019-05-25 | Outpatient (REF) ==
[2019-05-25 10:11] LABS: BLOOD UREA NITROGEN 12 MG/DL (7-18); CALCIUM LEVEL 6.9 MG/DL (8.8-10.2); CARBON DIOXIDE LEVEL 27 MEQ/L (21-32); CHLORIDE LEVEL 109 MEQ/L (98-107); CREATININE FOR GFR 0.71 MG/DL (0.55-1.30); GLOMERULAR FILTRATION RATE > 60.0 (>39); GLUCOSE, FASTING 77 MG/DL (70-100); POTASSIUM SERUM 4.4 MEQ/L (3.5-5.1); SODIUM LEVEL 142 MEQ/L (136-145)
== END ==
PROVIDERS: ATTEND Internal Medicine
DX: E87.6 Hypokalemia (principal)

== ENCOUNTER → 2019-06-12 | Outpatient (REF) | payer MEDICARE ==
[2019-06-12 15:43] LABS: HEMATOCRIT 36.9 % (36.0-47.0); HEMOGLOBIN 10.4 g/dl (12.0-15.5); MEAN CORPUSCULAR HEMOGLOBIN 28.3 pg (27.0-33.0); MEAN CORPUSCULAR HGB CONC 28.2 g/dl (32.0-36.5); MEAN CORPUSCULAR VOLUME 100.3 fl (80.0-96.0); PLATELET COUNT, AUTOMATED 102 10^3/uL (150-450); RED BLOOD COUNT 3.68 10^6/uL (4.00-5.40)
[2019-06-12 16:15] LABS: ALBUMIN 2.2 GM/DL (3.2-5.2); ALT/SGPT < 6 U/L (12-78); BILIRUBIN,TOTAL 0.5 MG/DL (0.2-1.0); BLOOD UREA NITROGEN 18 MG/DL (7-18); CALCIUM LEVEL 7.3 MG/DL (8.8-10.2); CARBON DIOXIDE LEVEL 24 MEQ/L (21-32); CHLORIDE LEVEL 110 MEQ/L (98-107); CREATININE FOR GFR 0.71 MG/DL (0.55-1.30); GLOMERULAR FILTRATION RATE > 60.0 (>39); GLUCOSE, FASTING 68 MG/DL (70-100); POTASSIUM SERUM 4.4 MEQ/L (3.5-5.1); SODIUM LEVEL 140 MEQ/L (136-145); TOTAL PROTEIN 5.1 GM/DL (6.4-8.2)
[2019-06-12 16:24] LABS: TOTAL 25(OH) VITAMIN D 65.7 NG/ML (30.0-100.0)
[2019-06-12 19:41] LABS: ATYPICAL LYMPH 2 % (0-5); BASOPHILS 2 % (0-1); EOSINOPHILS 1 % (0-3); LYMPHOCYTES 23 % (16-44); MONOCYTES 20 % (0-5); NEUTROPHILS 52 % (28-66)
[2019-06-12 19:42] LABS: PLATELET ESTIMATE DECREASED (NORMAL)
[2019-06-12 19:43] LABS: ANISOCYTOSIS 1+; TOXIC VACUOLATION 1+
== END ==
LOC: M LAB REF 15:04
PROVIDERS: ATTEND Physician Assistant
DX: I47.1 Supraventricular tachycardia (principal); I10 Essential (primary) hypertension; E55.9 Vitamin D deficiency, unspecified; Z79.899 Other long term (current) drug therapy

== ENCOUNTER → 2019-10-07 | Outpatient (REF) | payer MEDICARE ==
[~2019-10-07] MED LIST changes: +VALA1TAB5 PO; -VALA1TAB64 PO
[2019-10-07 16:21] LABS: CALCIUM LEVEL 7.6 MG/DL (8.8-10.2)
[2019-10-07 16:37] LABS: TOTAL 25(OH) VITAMIN D 71.2 NG/ML (30.0-100.0)
== END ==
LOC: M LABDRWAD 12:16
PROVIDERS: ATTEND Internal Medicine Endocrinology, Diabetes & Metabolism
DX: M81.0 Age-related osteoporosis without current pathological fracture (principal); E55.9 Vitamin D deficiency, unspecified

== ENCOUNTER → 2019-10-16 | Outpatient (REF) | payer MEDICARE | LOC: M LABDRWAD 12:30 | PROVIDERS: ATTEND Internal Medicine Endocrinology, Diabetes & Metabolism | DX: M81.0 Age-related osteoporosis without current pathological fracture (principal) ==

== ENCOUNTER → 2019-12-02 | Outpatient (REF) | payer MEDICARE ==
[~2019-12-02] MED LIST changes: -AMIO200T PO; +AMIO200T3 PO; -ASPI81TA85 PO; +ASPI81TA86 PO; +PANT40TA29 PO; -PANT40TA3 PO
[2019-12-02 13:51] LABS: ALT/SGPT 15 U/L (12-78); BILIRUBIN,TOTAL 0.4 MG/DL (0.2-1.0); BLOOD UREA NITROGEN 13 MG/DL (7-18); CALCIUM LEVEL 6.7 MG/DL (8.8-10.2); CARBON DIOXIDE LEVEL 29 MEQ/L (21-32); CHLORIDE LEVEL 109 MEQ/L (98-107); CHOLESTEROL LEVEL 118 MG/DL (<200); CREATININE FOR GFR 0.71 MG/DL (0.55-1.30); FREE T4 1.49 NG/DL (0.76-1.46); GLOMERULAR FILTRATION RATE > 60.0 (>39); GLUCOSE, FASTING 74 MG/DL (70-100); HDL CHOLESTEROL 27 MG/DL (>40); LDL CHOLESTEROL 71 MG/DL (<100); NON-HDL-C 91 MG/DL; POTASSIUM SERUM 5.1 MEQ/L (3.5-5.1); SODIUM LEVEL 142 MEQ/L (136-145); TOTAL PROTEIN 6.4 GM/DL (6.4-8.2); TRIGLYCERIDES LEVEL 102 MG/DL (<150)
[2019-12-02 13:53] LABS: TOTAL 25(OH) VITAMIN D 48.1 NG/ML (30.0-100.0)
== END ==
LOC: M LABDRWAD 12:29
PROVIDERS: ATTEND Physician Assistant
DX: E03.9 Hypothyroidism, unspecified (principal); I10 Essential (primary) hypertension; E78.2 Mixed hyperlipidemia; E55.9 Vitamin D deficiency, unspecified; Z79.899 Other long term (current) drug therapy

== ENCOUNTER → 2020-01-21 | Outpatient (REF) | payer MEDICARE ==
[2020-01-21 17:05] LABS: FREE T4 1.41 NG/DL (0.76-1.46); THYROID STIMULATING HORMONE 6.32 uIU/ML (0.358-3.740)
== END ==
LOC: M LABDRWAD 09:15
PROVIDERS: ATTEND Physician Assistant Medical
DX: E03.9 Hypothyroidism, unspecified (principal)

== ENCOUNTER → 2020-04-06 | Outpatient (REF) | payer MEDICARE ==
[2020-04-06 13:01] LABS: HEMATOCRIT 43.3 % (36.0-47.0); HEMOGLOBIN 13.1 g/dl (12.0-15.5); MEAN CORPUSCULAR HEMOGLOBIN 29.8 pg (27.0-33.0); MEAN CORPUSCULAR HGB CONC 30.3 g/dl (32.0-36.5); MEAN CORPUSCULAR VOLUME 98.6 fl (80.0-96.0); PLATELET COUNT, AUTOMATED 102 10^3/uL (150-450); RED BLOOD COUNT 4.39 10^6/uL (4.00-5.40); WHITE BLOOD COUNT 4.7 10^3/uL (4.0-10.0)
[2020-04-06 13:34] LABS: ALBUMIN 3.4 GM/DL (3.2-5.2); ALT/SGPT 17 U/L (12-78); BILIRUBIN,TOTAL 0.5 MG/DL (0.2-1.0); BLOOD UREA NITROGEN 19 MG/DL (7-18); CALCIUM LEVEL 9.1 MG/DL (8.8-10.2); CARBON DIOXIDE LEVEL 28 MEQ/L (21-32); CHLORIDE LEVEL 106 MEQ/L (98-107); CHOLESTEROL LEVEL 100 MG/DL (<200); CHOLESTEROL RISK RATIO 3.333 (<5); CREATININE FOR GFR 0.84 MG/DL (0.55-1.30); GLOMERULAR FILTRATION RATE > 60.0 (>39); GLUCOSE, FASTING 78 MG/DL (70-100); HDL CHOLESTEROL 30 MG/DL (>40); LDL CHOLESTEROL 49 MG/DL (<100); NON-HDL-C 70 MG/DL; POTASSIUM SERUM 4.3 MEQ/L (3.5-5.1); SODIUM LEVEL 143 MEQ/L (136-145); TOTAL PROTEIN 6.8 GM/DL (6.4-8.2); TRIGLYCERIDES LEVEL 106 MG/DL (<150)
== END ==
LOC: M LABDRWAD 12:19
PROVIDERS: ATTEND Physician Assistant
DX: I48.0 Paroxysmal atrial fibrillation (principal); I50.32 Chronic diastolic (congestive) heart failure; E78.00 Pure hypercholesterolemia, unspecified; E03.9 Hypothyroidism, unspecified

== ENCOUNTER → 2020-04-06 | Outpatient (REF) | payer MEDICARE ==
[2020-04-06 14:09] LABS: FREE T4 2.41 NG/DL (0.76-1.46); THYROID STIMULATING HORMONE < 0.005 uIU/ML (0.358-3.740)
== END ==
LOC: M LABDRWAD 12:15
PROVIDERS: ATTEND Physician Assistant Medical
DX: E03.9 Hypothyroidism, unspecified (principal)

== ENCOUNTER → 2020-08-30 | Outpatient (REF) | payer MEDICARE ==
[~2020-08-30] MED LIST changes: -CLIN150C14 PO; +CLIN150C15 PO
[2020-08-30 14:14] LABS: ALBUMIN 3.5 GM/DL (3.2-5.2); ALT/SGPT 13 U/L (12-78); BILIRUBIN,TOTAL 0.4 MG/DL (0.2-1.0); BLOOD UREA NITROGEN 21 MG/DL (7-18); CALCIUM LEVEL 8.8 MG/DL (8.8-10.2); CARBON DIOXIDE LEVEL 32 MEQ/L (21-32); CHLORIDE LEVEL 107 MEQ/L (98-107); CHOLESTEROL LEVEL 91 MG/DL (<200); CHOLESTEROL RISK RATIO 2.757 (<5); CREATININE FOR GFR 0.79 MG/DL (0.55-1.30); FREE T4 2.73 NG/DL (0.76-1.46); GLOMERULAR FILTRATION RATE > 60.0 (>39); GLUCOSE, FASTING 93 MG/DL (70-100); HDL CHOLESTEROL 33 MG/DL (>40); LDL CHOLESTEROL 44 MG/DL (<100); NON-HDL-C 58 MG/DL; POTASSIUM SERUM 4.4 MEQ/L (3.5-5.1); SODIUM LEVEL 142 MEQ/L (136-145); THYROID STIMULATING HORMONE 0.006 uIU/ML (0.358-3.740); TOTAL PROTEIN 7.7 GM/DL (6.4-8.2); TRIGLYCERIDES LEVEL 70 MG/DL (<150)
== END ==
LOC: M LABDRWAD 12:22
PROVIDERS: ATTEND Physician Assistant Medical
DX: M81.0 Age-related osteoporosis without current pathological fracture (principal); E03.9 Hypothyroidism, unspecified; E78.2 Mixed hyperlipidemia

== ENCOUNTER → 2020-08-30 | Outpatient (REF) | payer MEDICARE ==
[2020-08-30 13:59] LABS: CALCIUM LEVEL 8.9 MG/DL (8.8-10.2)
[2020-08-30 14:36] LABS: TOTAL 25(OH) VITAMIN D 67.3 NG/ML (30.0-100.0)
== END ==
LOC: M LABDRWAD 12:28
PROVIDERS: ATTEND Internal Medicine Endocrinology, Diabetes & Metabolism
DX: M81.0 Age-related osteoporosis without current pathological fracture (principal)

== ENCOUNTER → 2020-08-30 | Outpatient (REF) | payer MEDICARE ==
[2020-08-30 13:56] LABS: HEMATOCRIT 41.4 % (36.0-47.0); HEMOGLOBIN 12.1 g/dl (12.0-15.5); MEAN CORPUSCULAR HEMOGLOBIN 29.4 pg (27.0-33.0); MEAN CORPUSCULAR HGB CONC 29.2 g/dl (32.0-36.5); MEAN CORPUSCULAR VOLUME 100.7 fl (80.0-96.0); PLATELET COUNT, AUTOMATED 110 10^3/uL (150-450); RED BLOOD COUNT 4.11 10^6/uL (4.00-5.40)
[2020-08-30 14:08] LABS: BLOOD UREA NITROGEN 20 MG/DL (7-18); CREATININE FOR GFR 0.82 MG/DL (0.55-1.30); FERRITIN 44 NG/ML (8-252); GLOMERULAR FILTRATION RATE > 60.0 (>39); IRON (FE) 25 UG/DL (50-170); TOTAL IRON BINDING CAPACITY 228 UG/DL (250-450)
[2020-08-30 14:13] LABS: VITAMIN B12 LEVEL 692 PG/ML
[2020-08-30 14:14] LABS: FOLATE 11.8 NG/ML
[2020-08-30 14:16] LABS: ATYPICAL LYMPH 2 % (0-5); BASOPHILS 1 % (0-1); LYMPHOCYTES 32 % (16-44); METAMYELOCYTES 1 % (0-0); MONOCYTES 6 % (0-5); NEUTROPHILS 56 % (28-66); PLATELET ESTIMATE NORMAL (NORMAL)
== END ==
LOC: M LABDRWAD 12:29
PROVIDERS: ATTEND Internal Medicine Gastroenterology
DX: R13.10 Dysphagia, unspecified (principal)

== ENCOUNTER → 2020-09-29 | Outpatient (REF) | payer MEDICARE ==
[2020-09-29 14:07] LABS: FREE T4 1.8 NG/DL (0.76-1.46); THYROID STIMULATING HORMONE 0.016 uIU/ML (0.358-3.740)
== END ==
LOC: M LABDRWAD 12:18
PROVIDERS: ATTEND Physician Assistant Medical
DX: E03.9 Hypothyroidism, unspecified (principal)

== ENCOUNTER → 2020-10-08 | Outpatient (CLI) | payer MEDICARE | LOC: M LABSMTC 09:31 | PROVIDERS: ATTEND Anesthesiology | DX: Z01.812 Encounter for preprocedural laboratory examination (principal); Z20.822 Contact with and (suspected) exposure to COVID-19 ==

== ENCOUNTER 2020-10-13 10:50 | Day surgery (SDC) | payer MEDICARE ==
[~2020-10-13] VITALS: Ht 162.6 cm; Wt 56.7 kg
[~2020-10-13 10:50] MED LIST changes: +CEFUROXIME 1MG/0.1ML INTRACAMERAL INJ As Ordered ONE; +DUOVISC (0.50ML VISCOAT/0.55ML PROVISC) OPHTH KIT As Ordered ONE; +OFLOXACIN 0.3 % (OCUFLOX) OPTH SOL 5ML OD ONE; +PHENYLEPHRINE 2.5% OPHTH SOL 2ML OD ONE; +POVIDONE-IODINE 5% OPHTH PREP SOL 30ML As Ordered ONE; +PROPARACAINE 0.5% OPHTH SOL 15ML OD ONE; +TROPICAMIDE 1% OPHTH SOLN 2ML OD ONE
[2020-10-13] MEDS ORDERED: fentaNYL 100 MCG/2 ML INJECTION (J3010) As Ordered ONE (11:13)
[2020-10-13] MEDS ORDERED: MIDAZOLAM INJ 2MG/2ML VIAL (J2250 PER 1MG) As Ordered ONE (11:13)
[2020-10-13] MEDS ORDERED: BSS IRR 500ML/OMIDRIA 4ML IRR BAG (OR ONLY) As Ordered ONE (12:24)
[2020-10-13 13:00] VITALS: BP 144/62
--- NOTE | 2020-10-14 08:14 | RO ---
OPERATIVE NOTE DATE OF OPERATION: 10/13/2020 PREOPERATIVE DIAGNOSIS: 1. Visually significant nuclear sclerotic cataract, right eye. POSTOPERATIVE DIAGNOSIS: 1. Visually significant nuclear sclerotic cataract, right eye. PROCEDURE: 1. Cataract extraction with use of phacoemulsification, and placement of intraocular lens, AU00T0, 20.5 D, right eye. SURGEON: Osvaldo Santoro DO ANESTHESIA: Local (Omidria with MAC) COMPLICATIONS: None POSTOPERATIVE CONDITION: Stable INDICATIONS FOR SURGERY: 1. Blurred vision affecting patient's activities of daily living. DESCRIPTION OF PROCEDURE: The patient was seen in the preoperative area and properly identified. The correct operative eye was identified and marked. The patient received topical anesthetic, antibiotics, and topical dilating drops. The patient was then transferred to the operating room. The correct side was re-identified and a time-out was performed. The eye was prepped and draped in a sterile fashion. The eyelids were isolated with Tegaderm tape and the lids were held open with an adjustable speculum. A 1.0mm paracentesis incision was made. Omidria was then injected into the anterior chamber. Viscoelastic was then injected into the anterior chamber through the paracentesis. Using a 2.4mm sharp-tipped keratome, the anterior chamber was entered via a temporal clear cornea incision. A continuous curvilinear capsulorrhexis was created with Utrata forceps. Hydrodissection was performed with BSS on a blunt cannula until the nucleus was able to rotate freely. The crystalline lens was phacoemulsified and aspirated. Irrigation/aspiration was used to remove the cortical material Cohesive viscoelastic was placed into the capsular bag to deepen it. The implant was placed into the capsular bag and allowed to unfold. Placement was confirmed by visualizing the anterior capsulorrhexis. Irrigation/aspiration was used to remove the viscoelastic. The clear corneal incision was hydrated with BSS on a blunt cannula. The lens was well positioned. Intracameral antibiotic was injected into the anterior chamber. The incisions were then tested for leaks and found to be negative. The eye was then palpated for appropriate pressure and adjusted accordingly with BSS. The eyelid speculum was then carefully removed. A shield was placed over the eye. The patient tolerated the procedure well and was discharge to the recovery unit in a stable condition.
== END 2020-10-13 13:15 | disposition home or self-care (01) ==
LOC: M SDC 10:50
PROVIDERS: ATTEND Ophthalmology
DX: H25.11 Age-related nuclear cataract, right eye (principal); I10 Essential (primary) hypertension; E78.5 Hyperlipidemia, unspecified; I48.91 Unspecified atrial fibrillation; E03.9 Hypothyroidism, unspecified; D64.9 Anemia, unspecified; Z79.01 Long term (current) use of anticoagulants; J44.9 Chronic obstructive pulmonary disease, unspecified; Z79.899 Other long term (current) drug therapy; Z87.891 Personal history of nicotine dependence; M81.0 Age-related osteoporosis without current pathological fracture; Z88.0 Allergy status to penicillin; Z88.2 Allergy status to sulfonamides; Z88.1 Allergy status to other antibiotic agents; Z88.8 Allergy status to other drugs, medicaments and biological substances
CPT/HCPCS: 66984; J1097; J2250; J3010; V2632

== ENCOUNTER → 2020-10-15 | Outpatient (CLI) | payer MEDICARE ==
[~2020-10-15] MED LIST changes: -CEFUROXIME 1MG/0.1ML INTRACAMERAL INJ As Ordered ONE; -DUOVISC (0.50ML VISCOAT/0.55ML PROVISC) OPHTH KIT As Ordered ONE; -OFLOXACIN 0.3 % (OCUFLOX) OPTH SOL 5ML OD ONE; -PHENYLEPHRINE 2.5% OPHTH SOL 2ML OD ONE; -POVIDONE-IODINE 5% OPHTH PREP SOL 30ML As Ordered ONE; -PROPARACAINE 0.5% OPHTH SOL 15ML OD ONE; -TROPICAMIDE 1% OPHTH SOLN 2ML OD ONE
== END ==
LOC: M LABSMTC 09:06
PROVIDERS: ATTEND Anesthesiology
DX: Z01.812 Encounter for preprocedural laboratory examination (principal); Z20.822 Contact with and (suspected) exposure to COVID-19

== ENCOUNTER 2020-10-20 11:52 | Day surgery (SDC) | payer MEDICARE ==
[~2020-10-20] VITALS: Ht 162.6 cm; Wt 50.3 kg
[~2020-10-20 11:52] MED LIST changes: +BSS IRR 500ML/OMIDRIA 4ML IRR BAG (OR ONLY) As Ordered ONE; +DUOVISC (0.50ML VISCOAT/0.55ML PROVISC) OPHTH KIT As Ordered ONE; +MIDAZOLAM INJ 2MG/2ML VIAL (J2250 PER 1MG) As Ordered ONE; +OFLOXACIN 0.3 % (OCUFLOX) OPTH SOL 5ML OS ONE; +PHENYLEPHRINE 2.5% OPHTH SOL 2ML OS ONE; +POVIDONE-IODINE 5% OPHTH PREP SOL 30ML As Ordered ONE; +PROPARACAINE 0.5% OPHTH SOL 15ML OS ONE; +TROPICAMIDE 1% OPHTH SOLN 2ML OS ONE; +fentaNYL 100 MCG/2 ML INJECTION (J3010) As Ordered ONE
[2020-10-20 13:40] VITALS: BP 137/93
--- NOTE | 2020-10-21 09:18 | RO ---
OPERATIVE NOTE DATE OF OPERATION: 10/20/2020 PREOPERATIVE DIAGNOSES: 1. Visually significant nuclear sclerotic cataract, left eye. 2. Small pupil, left eye. POSTOPERATIVE DIAGNOSES: 1. Visually significant nuclear sclerotic cataract, left eye. 2. Small pupil, left eye. PROCEDURE: Complex cataract extraction with use of phacoemulsification, and placement of intraocular lens, AU00T0, 21.0 D , left eye with use of iRing. ANESTHESIA: Local (Omidria) with MAC. COMPLICATIONS: None. POSTOPERATIVE CONDITION: Postoperative Condition: Stable. INDICATION FOR SURGERY: Blurred vision affecting patient's activities of daily living. DESCRIPTION OF PROCEDURE: The patient was seen in the preoperative area and properly identified. The correct operative eye was identified and marked. The patient received topical anesthetic, antibiotics, and topical dilating drops. The patient was then transferred to the operating room. The correct side was re-identified and a timeout was performed. The eye was prepped and draped in a sterile fashion. The eyelids were isolated with Tegaderm tape and the lids were held open with an adjustable speculum. A 1.0mm paracentesis incision was made. Omidria was injected into the anterior chamber. Viscoelastic was then injected into the anterior chamber through the paracentesis. Using a 2.4mm sharp-tipped keratome, the anterior chamber was entered via a temporal clear cornea incision. An iRing was placed within the eye, and positioned onto the iris to expand the pupil. A continuous curvilinear capsulorhexis was created with Utrata forceps. Hydrodissection was performed with BSS on a blunt cannula until the nucleus was able to rotate freely. The crystalline lens was phacoemulsified and aspirated. Irrigation/aspiration was used to remove the cortical material Cohesive viscoelastic was placed into the capsular bag to deepen it. The implant was placed into the capsular bag and allowed to unfold. Placement was confirmed by visualizing the anterior capsulorhexis. Irrigation/aspiration was used to remove the viscoelastic. The iRing was removed from the eye. The clear corneal incision was hydrated with BSS on a blunt cannula. The lens was well positioned. Cefuroxime was injected into the anterior chamber. The incisions were then tested for leaks and found to be negative. The eye was then palpated for appropriate pressure and adjusted accordingly with BSS. The eyelid speculum was then carefully removed. A shield was placed over the eye. The patient tolerated the procedure well and was discharge to the recovery unit in a stable condition.
== END 2020-10-20 13:55 | disposition home or self-care (01) ==
LOC: M SDC 11:52
PROVIDERS: ATTEND Ophthalmology
DX: H25.12 Age-related nuclear cataract, left eye (principal); H21.562 Pupillary abnormality, left eye; I10 Essential (primary) hypertension; I48.91 Unspecified atrial fibrillation; Z79.01 Long term (current) use of anticoagulants; Z79.899 Other long term (current) drug therapy; E78.5 Hyperlipidemia, unspecified; E03.9 Hypothyroidism, unspecified; E05.90 Thyrotoxicosis, unspecified without thyrotoxic crisis or storm; Z87.891 Personal history of nicotine dependence; K57.92 Diverticulitis of intestine, part unspecified, without perforation or abscess without bleeding; D64.9 Anemia, unspecified; J44.9 Chronic obstructive pulmonary disease, unspecified; M81.0 Age-related osteoporosis without current pathological fracture; Z88.0 Allergy status to penicillin; Z88.2 Allergy status to sulfonamides; Z88.8 Allergy status to other drugs, medicaments and biological substances
CPT/HCPCS: 66982; J1097; J2250; J3010; V2632

== ENCOUNTER → 2020-12-01 | Outpatient (REF) | payer MEDICARE ==
[~2020-12-01] MED LIST changes: -BSS IRR 500ML/OMIDRIA 4ML IRR BAG (OR ONLY) As Ordered ONE; -DUOVISC (0.50ML VISCOAT/0.55ML PROVISC) OPHTH KIT As Ordered ONE; -MIDAZOLAM INJ 2MG/2ML VIAL (J2250 PER 1MG) As Ordered ONE; -OFLOXACIN 0.3 % (OCUFLOX) OPTH SOL 5ML OS ONE; -PHENYLEPHRINE 2.5% OPHTH SOL 2ML OS ONE; -POVIDONE-IODINE 5% OPHTH PREP SOL 30ML As Ordered ONE; -PROPARACAINE 0.5% OPHTH SOL 15ML OS ONE; -TROPICAMIDE 1% OPHTH SOLN 2ML OS ONE; -fentaNYL 100 MCG/2 ML INJECTION (J3010) As Ordered ONE
[2020-12-01 13:28] LABS: FREE T4 0.39 NG/DL (0.76-1.46); THYROID STIMULATING HORMONE 49.4 uIU/ML (0.358-3.740)
== END ==
LOC: M LABDRWAD 12:24
PROVIDERS: ATTEND Internal Medicine Endocrinology, Diabetes & Metabolism
DX: M81.0 Age-related osteoporosis without current pathological fracture (principal)

== ENCOUNTER → 2021-02-21 | Outpatient (REF) | payer MEDICARE ==
[~2021-02-21] MED LIST changes: -CLIN150C15 PO; +CLIN150C17 PO; -VERA120T4 PO; +VERA120T77 PO
[2021-02-21 13:23] LABS: FREE T4 1.56 NG/DL (0.76-1.46); THYROID STIMULATING HORMONE 4.68 uIU/ML (0.358-3.740)
== END ==
LOC: M LABDRWAD 12:33
PROVIDERS: ATTEND Internal Medicine Endocrinology, Diabetes & Metabolism
DX: R94.6 Abnormal results of thyroid function studies (principal)

== ENCOUNTER → 2021-04-20 | Outpatient (REF) | payer MEDICARE ==
[~2021-04-20] MED LIST changes: +VERA120T67 PO; +VERA120T71 PO; -VERA120T77 PO; -VERA12TASA PO
[2021-04-20 14:25] LABS: CALCIUM LEVEL 8.9 MG/DL (8.8-10.2); FREE T4 1.47 NG/DL (0.76-1.46); THYROID STIMULATING HORMONE 4.61 uIU/ML (0.358-3.740); TOTAL 25(OH) VITAMIN D 56.6 NG/ML (30.0-100.0)
== END ==
LOC: M LABDRWAD 13:26
PROVIDERS: ATTEND Internal Medicine Endocrinology, Diabetes & Metabolism
DX: M81.0 Age-related osteoporosis without current pathological fracture (principal); R94.6 Abnormal results of thyroid function studies; E55.9 Vitamin D deficiency, unspecified

== ENCOUNTER → 2021-06-06 | Outpatient (REF) | payer MEDICARE ==
[~2021-06-06] MED LIST changes: -AMIO200T3 PO; +AMIO200T49 PO
== END ==
LOC: M LAB REF 17:14
PROVIDERS: ATTEND Nurse Practitioner Family
DX: R30.0 Dysuria (principal)

== ENCOUNTER 2021-09-21 08:26 | Emergency (ER) | payer MEDICARE ==
[~2021-09-21] VITALS: Ht 162.6 cm; Wt 65.5 kg
[2021-09-21] MEDS ORDERED: FURO20TA2 (08:43)
[2021-09-21] MEDS ORDERED: ERGO500029 (08:43)
[2021-09-21] MEDS ORDERED: NITR100C2 (08:43)
[2021-09-21] MEDS ORDERED: SPIR-10 (08:43)
[2021-09-21] MEDS ORDERED: NS 1,000 ML IV ONE (11:40)
[2021-09-21] MEDS ORDERED: LIDOCAINE 5% (LIDODERM) PATCH TD ONE (11:40)
[2021-09-21] MEDS ORDERED: methocarbamoL 750 MG TAB PO ONE (11:40)
[2021-09-21 12:08] LABS: BASO % 0.3 % (0.0-1.0); EOS % 0.3 % (0.0-3.0); HEMATOCRIT 38.5 % (36.0-47.0); HEMOGLOBIN 11.3 g/dl (12.0-15.5); LYMPH # 0.6 10^3/uL (1.5-5.0); LYMPH % 16.5 % (24.0-44.0); MEAN CORPUSCULAR HGB CONC 29.4 g/dl (32.0-36.5); MEAN CORPUSCULAR VOLUME 95.3 fl (80.0-96.0); MONO % 26.2 % (2.0-8.0); NEUTROPHILS # 2.2 10^3/uL (1.5-8.5); NEUTROPHILS % 56.2 % (36.0-66.0); RED BLOOD COUNT 4.04 10^6/uL (4.00-5.40); WHITE BLOOD COUNT 3.9 10^3/uL (4.0-10.0)
[2021-09-21 12:47] LABS: PLATELET COUNT, AUTOMATED 69 10^3/uL (150-450)
[2021-09-21] MEDS ORDERED: ISOVUE-370 76% 100ML VIAL As Ordered ONE (12:47)
[2021-09-21 14:32] VITALS: BP 138/84
[2021-09-21] MEDS ORDERED: PRED20TA PO (14:56)
[2021-09-21] MEDS ORDERED: ASPE4PAD TOP (14:56)
[2021-09-21] MEDS ORDERED: METH-1164 PO (14:56)
[2021-09-21] MEDS ORDERED: **NOTE PATIENT COMMENT** MISC XX SCH (21:00)
== END 2021-09-21 14:36 | disposition home or self-care (01) ==
LOC: M ED 08:26
DX: M54.9 Dorsalgia, unspecified (principal); R91.8 Other nonspecific abnormal finding of lung field; K80.20 Calculus of gallbladder without cholecystitis without obstruction; K44.9 Diaphragmatic hernia without obstruction or gangrene; R16.1 Splenomegaly, not elsewhere classified; R59.9 Enlarged lymph nodes, unspecified; I50.9 Heart failure, unspecified; I48.91 Unspecified atrial fibrillation; I10 Essential (primary) hypertension; E78.5 Hyperlipidemia, unspecified; J44.9 Chronic obstructive pulmonary disease, unspecified; K21.9 Gastro-esophageal reflux disease without esophagitis; Z87.440 Personal history of urinary (tract) infections; Z85.850 Personal history of malignant neoplasm of thyroid; Z79.01 Long term (current) use of anticoagulants; Z79.899 Other long term (current) drug therapy; Z88.0 Allergy status to penicillin; Z88.2 Allergy status to sulfonamides; Z88.5 Allergy status to narcotic agent; Z88.8 Allergy status to other drugs, medicaments and biological substances
CPT/HCPCS: 71260; 74177; 80047; 85025; 85049; 85055; 99283; Q9967

== ENCOUNTER 2021-09-26 11:51 | Emergency (ER) | payer MEDICARE ==
[~2021-09-26] VITALS: Ht 162.6 cm; Wt 65.5 kg
[2021-09-26 11:51] VITALS: BP 154/75
[~2021-09-26 11:51] MED LIST changes: +ASPE4PAD TOP; +ERGO500029; +FURO20TA2; +METH-1164 PO; +NITR100C2; +PRED20TA PO; +SPIR-10
[2021-09-26] MEDS ORDERED: MORPHINE 4 MG/ML 1ML VIAL/SYRINGE IV ONE (17:10)
[2021-09-26] MEDS ORDERED: NS 500 ML IV ONE (17:10)
[2021-09-26] MEDS ORDERED: ONDANSETRON 4MG/2ML VIAL IV ONE (17:10)
[2021-09-26 18:02] LABS: BASO % 0.6 % (0.0-1.0); EOS % 0.2 % (0.0-3.0); HEMATOCRIT 39.6 % (36.0-47.0); HEMOGLOBIN 11.8 g/dl (12.0-15.5); LYMPH # 1.1 10^3/uL (1.5-5.0); LYMPH % 20.3 % (24.0-44.0); MEAN CORPUSCULAR HEMOGLOBIN 28.1 pg (27.0-33.0); MEAN CORPUSCULAR HGB CONC 29.8 g/dl (32.0-36.5); MEAN CORPUSCULAR VOLUME 94.3 fl (80.0-96.0); MONO # 1.7 10^3/uL (0.0-0.8); MONO % 32.2 % (2.0-8.0); NEUTROPHILS # 2.4 10^3/uL (1.5-8.5); NEUTROPHILS % 44.6 % (36.0-66.0); WHITE BLOOD COUNT 5.3 10^3/uL (4.0-10.0)
[2021-09-26 18:03] LABS: PLATELET COUNT, AUTOMATED 83 10^3/uL (150-450)
[2021-09-26] MEDS ORDERED: ISOVUE-370 76% 100ML VIAL As Ordered ONE (18:23)
[2021-09-26 18:28] LABS: ALBUMIN 3.3 GM/DL (3.2-5.2); BILIRUBIN,DIRECT 0.2 MG/DL (0.0-0.2); BILIRUBIN,TOTAL 0.6 MG/DL (0.2-1.0); TOTAL PROTEIN 6.9 GM/DL (6.4-8.2)
[2021-09-26] MEDS ORDERED: CYCLOBENZAPRINE 10MG TABLET PO ONE (20:10)
[2021-09-26] MEDS ORDERED: HYDR-3713 PO (20:43)
[2021-09-26] MEDS ORDERED: CYCL-707 PO (20:43)
[2021-09-26] MEDS ORDERED: traMADol 50 MG TAB PO ONE (20:45)
[2021-09-26] MEDS ORDERED: NORCO 5/325MG TABLET (BULK FOR ED) PO ONE (20:50)
== END 2021-09-26 21:00 | disposition home or self-care (01) ==
LOC: M ED 11:51
DX: S32.020A Wedge compression fracture of second lumbar vertebra, initial encounter for closed fracture (principal); S32.040A Wedge compression fracture of fourth lumbar vertebra, initial encounter for closed fracture; S22.070A Wedge compression fracture of T9-T10 vertebra, initial encounter for closed fracture; S22.080A Wedge compression fracture of T11-T12 vertebra, initial encounter for closed fracture; X58.XXXA Exposure to other specified factors, initial encounter; Y92.9 Unspecified place or not applicable; Y93.9 Activity, unspecified; Y99.9 Unspecified external cause status; K76.0 Fatty (change of) liver, not elsewhere classified; K80.20 Calculus of gallbladder without cholecystitis without obstruction; R16.1 Splenomegaly, not elsewhere classified; K57.30 Diverticulosis of large intestine without perforation or abscess without bleeding; M16.0 Bilateral primary osteoarthritis of hip; I48.91 Unspecified atrial fibrillation; I50.9 Heart failure, unspecified; I10 Essential (primary) hypertension; J44.9 Chronic obstructive pulmonary disease, unspecified; Z85.850 Personal history of malignant neoplasm of thyroid; Z79.01 Long term (current) use of anticoagulants; Z79.899 Other long term (current) drug therapy; Z88.0 Allergy status to penicillin; Z88.1 Allergy status to other antibiotic agents; Z88.2 Allergy status to sulfonamides; Z88.5 Allergy status to narcotic agent; Z88.8 Allergy status to other drugs, medicaments and biological substances
CPT/HCPCS: 74177; 76705; 80047; 80076; 81001; 83690; 83880; 84484; 85025; 85049; 85055; 96361; 96374; 96375; 99284; J2270; J2405; Q9967

== ENCOUNTER → 2021-11-07 | Outpatient (CLI) | payer MEDICARE ==
[~2021-11-07] MED LIST changes: +CYCL-707 PO; +HYDR-3713 PO
== END ==
LOC: M ADAMS 09:25
PROVIDERS: ATTEND Physician Assistant
DX: M54.50 Low back pain, unspecified (principal); M25.78 Osteophyte, vertebrae; M48.54XA Collapsed vertebra, not elsewhere classified, thoracic region, initial encounter for fracture; M48.56XA Collapsed vertebra, not elsewhere classified, lumbar region, initial encounter for fracture

== ENCOUNTER 2021-11-14 12:44 | Emergency (ER) | payer MEDICARE ==
[~2021-11-14] VITALS: Ht 160 cm; Wt 68.2 kg
[2021-11-14] MEDS ORDERED: GLUCAGON INJ 1MG VIAL IV STA (13:32)
[2021-11-14 15:11] LABS: RSV AMPLIFICATION NEGATIVE (NEGATIVE)
[2021-11-14 15:49] VITALS: BP 143/62
== END 2021-11-14 16:04 | disposition home or self-care (01) ==
LOC: M ED 12:44
DX: T18.120A Food in esophagus causing compression of trachea, initial encounter (principal); I48.91 Unspecified atrial fibrillation; I25.10 Atherosclerotic heart disease of native coronary artery without angina pectoris; I10 Essential (primary) hypertension; K44.9 Diaphragmatic hernia without obstruction or gangrene; Z87.440 Personal history of urinary (tract) infections; Z85.850 Personal history of malignant neoplasm of thyroid; Z79.899 Other long term (current) drug therapy; Z88.0 Allergy status to penicillin; Z88.2 Allergy status to sulfonamides; Z88.1 Allergy status to other antibiotic agents; Z88.5 Allergy status to narcotic agent; Z88.8 Allergy status to other drugs, medicaments and biological substances
CPT/HCPCS: 87631; 96374; 99283; J1610

== ENCOUNTER → 2021-11-22 | Outpatient (CLI) | payer MEDICARE ==
[2021-11-22 14:07] LABS: CALCIUM LEVEL 8.2 MG/DL (8.8-10.2); CREATININE FOR GFR 1.22 MG/DL (0.55-1.30); FREE T4 1.66 NG/DL (0.76-1.46); GLOMERULAR FILTRATION RATE 45.5 (>39); POTASSIUM SERUM 4.9 MEQ/L (3.5-5.1); THYROID STIMULATING HORMONE 3.96 uIU/ML (0.358-3.740)
[2021-11-22 14:36] LABS: TOTAL 25(OH) VITAMIN D 49.5 NG/ML (30.0-100.0)
== END ==
LOC: M ADAMS 09:33
PROVIDERS: ATTEND Nurse Practitioner Family
DX: E55.9 Vitamin D deficiency, unspecified (principal); R94.6 Abnormal results of thyroid function studies; M81.0 Age-related osteoporosis without current pathological fracture

== ENCOUNTER → 2022-01-18 | Outpatient (REF) | payer MEDICARE ==
[2022-01-18 13:03] LABS: BASO % 0.5 % (0.0-1.0); EOS % 0.2 % (0.0-3.0); HEMATOCRIT 34.8 % (36.0-47.0); HEMOGLOBIN 9.6 g/dl (12.0-15.5); LYMPH # 0.8 10^3/uL (1.5-5.0); LYMPH % 20.1 % (24.0-44.0); MEAN CORPUSCULAR HEMOGLOBIN 26.2 pg (27.0-33.0); MEAN CORPUSCULAR HGB CONC 27.6 g/dl (32.0-36.5); MEAN CORPUSCULAR VOLUME 94.8 fl (80.0-96.0); MONO # 1.3 10^3/uL (0.0-0.8); MONO % 31.9 % (2.0-8.0); NEUTROPHILS # 1.9 10^3/uL (1.5-8.5); NEUTROPHILS % 46.8 % (36.0-66.0); RED BLOOD COUNT 3.67 10^6/uL (4.00-5.40); WHITE BLOOD COUNT 4.1 10^3/uL (4.0-10.0)
[2022-01-18 13:04] LABS: PLATELET COUNT, AUTOMATED 89 10^3/uL (150-450)
[2022-01-18 13:31] LABS: ALBUMIN 3.2 GM/DL (3.2-5.2); BILIRUBIN,TOTAL 0.5 MG/DL (0.2-1.0); CHOLESTEROL RISK RATIO 2.21 (<5); CREATININE FOR GFR 1.33 MG/DL (0.55-1.30); GLOMERULAR FILTRATION RATE 41.2 (>39); POTASSIUM SERUM 4.8 MEQ/L (3.5-5.1); THYROID STIMULATING HORMONE 0.84 uIU/ML (0.358-3.740); TOTAL PROTEIN 6.6 GM/DL (6.4-8.2)
[2022-01-18 14:17] LABS: TOTAL 25(OH) VITAMIN D 64.5 NG/ML (30.0-100.0)
== END ==
LOC: M SFHCADAM 08:08
PROVIDERS: ATTEND Physician Assistant
DX: I50.42 Chronic combined systolic (congestive) and diastolic (congestive) heart failure (principal); E03.9 Hypothyroidism, unspecified; I13.0 Hypertensive heart and chronic kidney disease with heart failure and stage 1 through stage 4 chronic kidney disease, or unspecified chronic kidney disease; J44.9 Chronic obstructive pulmonary disease, unspecified; E78.2 Mixed hyperlipidemia; E55.9 Vitamin D deficiency, unspecified; N18.31 Chronic kidney disease, stage 3a; R13.19 Other dysphagia; K44.9 Diaphragmatic hernia without obstruction or gangrene; M47.816 Spondylosis without myelopathy or radiculopathy, lumbar region; M16.0 Bilateral primary osteoarthritis of hip

== ENCOUNTER → 2022-01-18 | Outpatient (CLI) | payer MEDICARE | LOC: M ADAMS 08:26 | PROVIDERS: ATTEND Physician Assistant | DX: R13.19 Other dysphagia (principal); K44.9 Diaphragmatic hernia without obstruction or gangrene; M47.816 Spondylosis without myelopathy or radiculopathy, lumbar region; M16.0 Bilateral primary osteoarthritis of hip ==

== ENCOUNTER → 2022-01-30 | Outpatient (REF) | payer MEDICARE ==
[2022-01-30 13:13] LABS: HEMATOCRIT 36.9 % (36.0-47.0); HEMOGLOBIN 10.4 g/dl (12.0-15.5); MEAN CORPUSCULAR HEMOGLOBIN 26.4 pg (27.0-33.0); MEAN CORPUSCULAR HGB CONC 28.2 g/dl (32.0-36.5); MEAN CORPUSCULAR VOLUME 93.7 fl (80.0-96.0); RED BLOOD COUNT 3.94 10^6/uL (4.00-5.40); WHITE BLOOD COUNT 4.5 10^3/uL (4.0-10.0)
[2022-01-30 13:17] LABS: PLATELET COUNT, AUTOMATED 97 10^3/uL (150-450)
[2022-01-30 13:49] LABS: ANISOCYTOSIS 1+; BASOPHILS 1 % (0-1); LYMPHOCYTES 13 % (16-44); MONOCYTES 28 % (0-5); NEUTROPHILS 58 % (28-66); PLATELET ESTIMATE DECREASED (NORMAL)
[2022-01-30 13:50] LABS: OVALOCYTES 1+
[2022-01-30 14:16] LABS: PERCENT SATURATION 8.4 % (13.2-45.0)
== END ==
LOC: M SFHCADAM 08:16
PROVIDERS: ATTEND Physician Assistant
DX: D50.9 Iron deficiency anemia, unspecified (principal)

== ENCOUNTER → 2022-02-06 | Outpatient (REF) | payer MEDICARE | LOC: M WUC 13:24 | PROVIDERS: ATTEND Student in an Organized Health Care Education/Training Program | DX: R30.0 Dysuria (principal) ==

== ENCOUNTER → 2022-02-19 | Outpatient (CLI) | payer MEDICARE | LOC: M LABSMTC 09:45 | PROVIDERS: ATTEND Anesthesiology | DX: Z01.812 Encounter for preprocedural laboratory examination (principal); Z20.822 Contact with and (suspected) exposure to COVID-19 ==

== ENCOUNTER 2022-02-23 12:39 | Day surgery (SDC) | payer MEDICARE ==
[~2022-02-23] VITALS: Ht 162.6 cm; Wt 68.0 kg
[~2022-02-23 12:39] MED LIST changes: +CALC200S NARES; -ERGO500029; +ERGO500029 PO; +FERR325T3 PO; +FURO40TA2 PO; +INCR1INH INH; +MAPA500C PO; -NITR100C2; +NS 1,000 ML IV ONE; -SPIR-10
[2022-02-23] MEDS ORDERED: propofoL 200 MG/20 ML VIAL As Ordered ONE (14:14)
[2022-02-23] MEDS ORDERED: LIDOCAINE 2% 100MG/5ML SDV (FOR ANES.) As Ordered ONE (14:14)
[2022-02-23] MEDS ORDERED: fentaNYL 100 MCG/2 ML INJECTION As Ordered ONE (14:15)
[2022-02-23] MEDS ORDERED: PHENYLephrine 500MCG 5ML (100MCG/ML) SYRINGE As Ordered ONE (14:28)
[2022-02-23 15:15] VITALS: BP 156/76
== END 2022-02-23 15:22 | disposition home or self-care (01) ==
LOC: M OPP 12:39
PROVIDERS: ATTEND Internal Medicine Gastroenterology
DX: K22.2 Esophageal obstruction (principal); K29.70 Gastritis, unspecified, without bleeding; K31.89 Other diseases of stomach and duodenum; Z79.02 Long term (current) use of antithrombotics/antiplatelets; Z79.2 Long term (current) use of antibiotics; Z79.51 Long term (current) use of inhaled steroids; Z79.899 Other long term (current) drug therapy; Z88.0 Allergy status to penicillin; Z88.1 Allergy status to other antibiotic agents; K22.9 Disease of esophagus, unspecified; Z88.2 Allergy status to sulfonamides; Z88.8 Allergy status to other drugs, medicaments and biological substances; Z87.891 Personal history of nicotine dependence; I47.1 Supraventricular tachycardia; I10 Essential (primary) hypertension; E78.00 Pure hypercholesterolemia, unspecified; I34.9 Nonrheumatic mitral valve disorder, unspecified; E03.9 Hypothyroidism, unspecified; D50.9 Iron deficiency anemia, unspecified; M81.0 Age-related osteoporosis without current pathological fracture; Z90.89 Acquired absence of other organs
CPT/HCPCS: 43239; 43249; 88305; J2370; J3010

== ENCOUNTER 2022-04-11 11:00 | Emergency (ER) | payer MEDICARE ==
[~2022-04-11] VITALS: Ht 160 cm; Wt 68.2 kg
[~2022-04-11 11:00] MED LIST changes: -NS 1,000 ML IV ONE
[2022-04-11] MEDS ORDERED: VERA120T83 (11:14)
[2022-04-11 12:10] LABS: BASO % 0.2 % (0.0-1.0); EOS % 0.2 % (0.0-3.0); HEMATOCRIT 39.5 % (36.0-47.0); HEMOGLOBIN 11.6 g/dl (12.0-15.5); LYMPH # 0.7 10^3/uL (1.5-5.0); LYMPH % 13.3 % (24.0-44.0); MEAN CORPUSCULAR HEMOGLOBIN 26.7 pg (27.0-33.0); MEAN CORPUSCULAR HGB CONC 29.4 g/dl (32.0-36.5); MONO # 1.4 10^3/uL (0.0-0.8); MONO % 28.6 % (2.0-8.0); NEUTROPHILS # 2.9 10^3/uL (1.5-8.5); NEUTROPHILS % 57.1 % (36.0-66.0); RED BLOOD COUNT 4.34 10^6/uL (4.00-5.40)
[2022-04-11 12:13] LABS: PLATELET COUNT, AUTOMATED 79 10^3/uL (150-450)
[2022-04-11 12:51] LABS: LIPASE 21 U/L (12-53)
[2022-04-11 12:52] LABS: BILIRUBIN,DIRECT 0.2 MG/DL (<0.4)
[2022-04-11 12:56] LABS: ALBUMIN 2.9 G/DL (3.2-5.2); ALKALINE PHOSPHATASE 57 U/L (46-116); ALT/SGPT < 9 U/L (7.0-40); AST/SGOT 12 U/L (<34); BILIRUBIN,TOTAL 0.4 MG/DL (0.3-1.2); BLOOD UREA NITROGEN 18 MG/DL (9-23); CALCIUM LEVEL 7.7 MG/DL (8.3-10.6); CARBON DIOXIDE LEVEL 26 MMOL/L (20-31); CHLORIDE LEVEL 104 MMOL/L (98-107); CREATININE FOR GFR 1.28 MG/DL (0.55-1.30); GLUCOSE, FASTING 72 MG/DL (74-106); POTASSIUM SERUM 3.6 MMOL/L (3.5-5.1); SODIUM LEVEL 141 MMOL/L (136-145); TOTAL PROTEIN 5.9 G/DL (5.7-8.2)
[2022-04-11] MEDS ORDERED: ISOVUE-370 76% 100ML VIAL As Ordered ONE (13:50)
[2022-04-11 14:25] VITALS: BP 125/58
[2022-04-11] MEDS ORDERED: ONDA4TAB6 PO (14:32)
== END 2022-04-11 15:20 | disposition home or self-care (01) ==
LOC: M ED 11:00
DX: R10.9 Unspecified abdominal pain (principal); R11.0 Nausea; I48.91 Unspecified atrial fibrillation; I50.9 Heart failure, unspecified; I10 Essential (primary) hypertension; J44.9 Chronic obstructive pulmonary disease, unspecified; Z85.850 Personal history of malignant neoplasm of thyroid; Z79.890 Hormone replacement therapy; Z79.899 Other long term (current) drug therapy; Z88.0 Allergy status to penicillin; Z88.2 Allergy status to sulfonamides; Z88.5 Allergy status to narcotic agent; Z88.8 Allergy status to other drugs, medicaments and biological substances
CPT/HCPCS: 74177; 80048; 80076; 83690; 85025; 85049; 85055; 99284; Q9967

== ENCOUNTER → 2022-04-16 | Outpatient (REF) | payer MEDICARE ==
[~2022-04-16] MED LIST changes: +ONDA4TAB6 PO; +VERA120T83
== END ==
LOC: M SFHCADAM 13:15
PROVIDERS: ATTEND Physician Assistant
DX: R30.0 Dysuria (principal)

== ENCOUNTER → 2022-05-21 | Outpatient (CLI) | payer MEDICARE ==
[~2022-05-21] MED LIST changes: +BARIUM SULFATE 700 MG TABLET (E-Z-DISK) As Ordered ONE; +E-Z-GAS II EFFERVESCENT PACKET (SODIUM BICARB./CITRIC ACID/SIMETHICONE) As Ordered ONE; +E-Z-HD 98% w/w 340GM SUSP BTL As Ordered ONE; +E-Z-PAQUE 96% w/w SUSP 176GM BTL As Ordered ONE
== END ==
LOC: M RAD 09:14
PROVIDERS: ATTEND Internal Medicine Gastroenterology
DX: R13.10 Dysphagia, unspecified (principal)

== ENCOUNTER 2022-06-18 12:26 | Inpatient (IN) | payer MEDICARE ==
[~2022-06-18] VITALS: Ht 162.6 cm; Wt 53.8 kg
[~2022-06-18 12:26] MED LIST changes: -BARIUM SULFATE 700 MG TABLET (E-Z-DISK) As Ordered ONE; +BUDE10.2 INH; +DRON2.5C11 PO; -E-Z-GAS II EFFERVESCENT PACKET (SODIUM BICARB./CITRIC ACID/SIMETHICONE) As Ordered ONE; -E-Z-HD 98% w/w 340GM SUSP BTL As Ordered ONE; -E-Z-PAQUE 96% w/w SUSP 176GM BTL As Ordered ONE; +ELIQ2.5T PO; +MAGN400T2 PO; +MECL-86 PO; +MIDO5TA PO; +ROCA0.5C PO; +SYNT100T PO; -VERA120T83; +VERA120T83 PO
[2022-06-18 13:34] LABS: BASO % 0.3 % (0.0-1.0); EOS % 0.3 % (0.0-3.0); HEMATOCRIT 41.7 % (36.0-47.0); HEMOGLOBIN 12.4 g/dl (12.0-15.5); LYMPH # 1.1 10^3/uL (1.5-5.0); MEAN CORPUSCULAR HEMOGLOBIN 29.4 pg (27.0-33.0); MEAN CORPUSCULAR HGB CONC 29.7 g/dl (32.0-36.5); MEAN CORPUSCULAR VOLUME 98.8 fl (80.0-96.0); MONO % 27.4 % (2.0-8.0); RED BLOOD COUNT 4.22 10^6/uL (4.00-5.40); WHITE BLOOD COUNT 8.6 10^3/uL (4.0-10.0)
[2022-06-18 13:36] LABS: PLATELET COUNT, AUTOMATED 98 10^3/uL (150-450)
[2022-06-18 13:39] LABS: MONO # 2.4 10^3/uL (0.0-0.8)
[2022-06-18 14:05] LABS: ALBUMIN 2.4 G/DL (3.2-5.2); ALKALINE PHOSPHATASE 71 U/L (46-116); ALT/SGPT < 9 U/L (7.0-40); AST/SGOT 24 U/L (<34); BILIRUBIN,DIRECT 0.2 MG/DL (<0.4); BILIRUBIN,TOTAL 0.7 MG/DL (0.3-1.2); BLOOD UREA NITROGEN 17 MG/DL (9-23); CARBON DIOXIDE LEVEL 32 MMOL/L (20-31); CHLORIDE LEVEL 100 MMOL/L (98-107); CREATININE FOR GFR 1.39 MG/DL (0.55-1.30); GLOMERULAR FILTRATION RATE 39.1 (>39); GLUCOSE, FASTING 65 MG/DL (74-106); POTASSIUM SERUM 4.5 MMOL/L (3.5-5.1); SODIUM LEVEL 138 MMOL/L (136-145); TOTAL PROTEIN 5.6 G/DL (5.7-8.2)
[2022-06-18 14:07] LABS: FREE T4 1.29 NG/DL (0.89-1.76); THYROID STIMULATING HORMONE 10.844 uIU/ML (0.55-4.78)
[2022-06-18 14:27] LABS: RSV AMPLIFICATION NEGATIVE (NEGATIVE)
[2022-06-18] MEDS ORDERED: cefTRIAXone SOD 1 GM in D5W MINI-BAG PLUS 50 ML IV ONE (15:15)
[2022-06-18] MEDS ORDERED: MAGN400T35 PO (15:23)
[2022-06-18] MEDS ORDERED: MIDO5TA PO (15:23)
[2022-06-18] MEDS ORDERED: DRON2.5C11 PO (15:23)
[2022-06-18] MEDS ORDERED: ELIQ2.5T PO (15:23)
[2022-06-18] MEDS ORDERED: MECL-86 PO (15:23)
[2022-06-18] MEDS ORDERED: HOME MED LIST COMPLETE! XX SCH (15:25)
[2022-06-18] MEDS ORDERED: LR 500 ML IV ONE (15:55)
[2022-06-18] MEDS ORDERED: MECLIZINE 25 MG TABLET PO PRN (16:00)
[2022-06-18] MEDS ORDERED: ALBUTEROL 90 MCG/ACT 8GM HFA INHALER INH PRN (16:00)
[2022-06-18] MEDS: MIDODRINE 5 MG TAB PO SCH (16:30)
[2022-06-18 17:20] VITALS: BP 129/57
[2022-06-18] MEDS: SYMBICORT 160/4.5MCG INHALER 6GM INH SCH (19:31)
[2022-06-18] MEDS: MAGNESIUM OXIDE 400MG TAB (MAG-OX) PO SCH (20:56)
[2022-06-18] MEDS: SIMVASTATIN 20 MG TAB PO SCH (20:56)
[2022-06-18] MEDS ORDERED: APIXABAN 2.5 MG TAB (ELIQUIS) PO SCH (21:00)
[2022-06-18] MEDS: VERAPAMIL 40 MG TAB PO SCH (21:00)
[2022-06-18] MEDS: DRONABINOL 2.5MG CAP (MARINOL) PO SCH (21:00)
[2022-06-18 22:00] VITALS: BP 128/57
[2022-06-19] VITALS (8 sets, daily range): BP systolic 101–133; BP diastolic 49–64
[2022-06-19] MEDS: LEVOTHYROXINE 100MCG TABLET (0.1MG) PO SCH (05:50)
[2022-06-19 06:01] LABS: HEMATOCRIT 35.5 % (36.0-47.0); HEMOGLOBIN 10.9 g/dl (12.0-15.5); MEAN CORPUSCULAR HEMOGLOBIN 30.2 pg (27.0-33.0); MEAN CORPUSCULAR HGB CONC 30.7 g/dl (32.0-36.5); MEAN CORPUSCULAR VOLUME 98.3 fl (80.0-96.0); RED BLOOD COUNT 3.61 10^6/uL (4.00-5.40); WHITE BLOOD COUNT 6.8 10^3/uL (4.0-10.0)
[2022-06-19 06:10] LABS: PLATELET COUNT, AUTOMATED 81 10^3/uL (150-450)
[2022-06-19 06:29] LABS: CALCIUM LEVEL 7.5 MG/DL (8.3-10.6); CREATININE FOR GFR 1.43 MG/DL (0.55-1.30); GLOMERULAR FILTRATION RATE 37.9 (>39); POTASSIUM SERUM 3.4 MMOL/L (3.5-5.1)
[2022-06-19] MEDS: TIOTROPIUM INHALER/CAPSULE (SPIRIVA) INH SCH (07:31)
[2022-06-19] MEDS: SYMBICORT 160/4.5MCG INHALER 6GM INH SCH ×2 (07:31→19:21)
[2022-06-19] MEDS: VERAPAMIL 40 MG TAB PO SCH ×2 (09:00→20:22)
[2022-06-19] MEDS: DRONABINOL 2.5MG CAP (MARINOL) PO SCH ×2 (09:54→20:40)
[2022-06-19] MEDS: MIDODRINE 5 MG TAB PO SCH ×3 (09:55→17:21)
[2022-06-19] MEDS: MAGNESIUM OXIDE 400MG TAB (MAG-OX) PO SCH ×2 (09:56→20:24)
[2022-06-19] MEDS: FOLIC ACID 1MG TAB PO SCH (09:56)
[2022-06-19] MEDS: AMIODARONE 200 MG TAB (PACERONE) PO SCH (09:56)
[2022-06-19] MEDS: CALCITONIN NASAL SPRAY 3.7ML BTL SCH (09:58)
[2022-06-19] MEDS ORDERED: POTASSIUM CHLORIDE 10MEQ SR TABLET PO ONE ×2 (11:45→13:00)
[2022-06-19] MEDS ORDERED: allopurinoL 100 MG TAB PO PRN (13:00)
[2022-06-19] MEDS ORDERED: PILL CUTTER 1 EACH XX PRN (13:10)
[2022-06-19] MEDS: cefTRIAXone SOD 1 GM in D5W MINI-BAG PLUS 50 ML IV SCH (17:20)
[2022-06-19] MEDS: SIMVASTATIN 20 MG TAB PO SCH (20:24)
[2022-06-20 02:00] VITALS: BP 106/49
[2022-06-20] MEDS: LEVOTHYROXINE 100MCG TABLET (0.1MG) PO SCH (05:27)
[2022-06-20 05:32] VITALS: BP 100/48
[2022-06-20 05:53] LABS: HEMATOCRIT 30.9 % (36.0-47.0); HEMOGLOBIN 9.3 g/dl (12.0-15.5); MEAN CORPUSCULAR HEMOGLOBIN 29.6 pg (27.0-33.0); MEAN CORPUSCULAR HGB CONC 30.1 g/dl (32.0-36.5); MEAN CORPUSCULAR VOLUME 98.4 fl (80.0-96.0); RED BLOOD COUNT 3.14 10^6/uL (4.00-5.40); WHITE BLOOD COUNT 4.8 10^3/uL (4.0-10.0)
[2022-06-20 05:54] LABS: PLATELET COUNT, AUTOMATED 71 10^3/uL (150-450)
[2022-06-20 06:18] LABS: CALCIUM LEVEL 7.1 MG/DL (8.3-10.6); CREATININE FOR GFR 1.43 MG/DL (0.55-1.30); GLOMERULAR FILTRATION RATE 37.9 (>39); MAGNESIUM LEVEL 2.7 MG/DL (1.8-2.4); PHOSPHORUS LEVEL 3.4 MG/DL (2.4-5.1); POTASSIUM SERUM 4.2 MMOL/L (3.5-5.1)
[2022-06-20 07:17] LABS: ANISOCYTOSIS 2+; BASOPHILS 1 % (0-1); LYMPHOCYTES 17 % (16-44); METAMYELOCYTES 1 % (0-0); MONOCYTES 20 % (0-5); MYELOCYTES 1 % (0-0); NEUTROPHILS 59 % (28-66); PLATELET ESTIMATE DECREASED (NORMAL)
[2022-06-20 07:18] LABS: HYPOCHROMASIA 1+
[2022-06-20] MEDS: FOLIC ACID 1MG TAB PO SCH (08:08)
[2022-06-20] MEDS: AMIODARONE 200 MG TAB (PACERONE) PO SCH (08:08)
[2022-06-20] MEDS: VERAPAMIL 40 MG TAB PO SCH ×2 (08:10→21:00)
[2022-06-20] MEDS: DRONABINOL 2.5MG CAP (MARINOL) PO SCH ×2 (08:11→21:15)
[2022-06-20] MEDS: MAGNESIUM OXIDE 400MG TAB (MAG-OX) PO SCH (08:11)
[2022-06-20] MEDS: MIDODRINE 5 MG TAB PO SCH ×3 (08:11→16:05)
[2022-06-20] MEDS: CALCITONIN NASAL SPRAY 3.7ML BTL SCH (08:12)
[2022-06-20] MEDS: SYMBICORT 160/4.5MCG INHALER 6GM INH SCH ×2 (08:18→20:38)
[2022-06-20] MEDS: TIOTROPIUM INHALER/CAPSULE (SPIRIVA) INH SCH (08:18)
[2022-06-20] MEDS ORDERED: FUROSEMIDE 20MG/2ML VIAL IV ONE (11:00)
[2022-06-20 14:00] VITALS: BP 122/64
[2022-06-20] MEDS: cefTRIAXone SOD 1 GM in D5W MINI-BAG PLUS 50 ML IV SCH (16:06)
[2022-06-20 18:00] VITALS: BP 118/64
[2022-06-20 21:00] VITALS: BP 117/63
[2022-06-20] MEDS: APIXABAN 2.5 MG TAB (ELIQUIS) PO SCH (21:15)
[2022-06-20] MEDS: SIMVASTATIN 20 MG TAB PO SCH (21:15)
[2022-06-21 02:30] VITALS: BP 109/55
[2022-06-21 05:45] VITALS: BP 109/63
[2022-06-21 05:56] LABS: HEMATOCRIT 32.1 % (36.0-47.0); HEMOGLOBIN 9.5 g/dl (12.0-15.5); MEAN CORPUSCULAR HEMOGLOBIN 29.3 pg (27.0-33.0); MEAN CORPUSCULAR HGB CONC 29.6 g/dl (32.0-36.5); MEAN CORPUSCULAR VOLUME 99.1 fl (80.0-96.0); RED BLOOD COUNT 3.24 10^6/uL (4.00-5.40); WHITE BLOOD COUNT 4.5 10^3/uL (4.0-10.0)
[2022-06-21] MEDS: LEVOTHYROXINE 100MCG TABLET (0.1MG) PO SCH (06:02)
[2022-06-21 06:03] LABS: PLATELET COUNT, AUTOMATED 66 10^3/uL (150-450)
[2022-06-21 06:23] LABS: CALCIUM LEVEL 7.7 MG/DL (8.3-10.6); CREATININE FOR GFR 1.43 MG/DL (0.55-1.30); GLOMERULAR FILTRATION RATE 37.9 (>39); MAGNESIUM LEVEL 2.6 MG/DL (1.8-2.4); PHOSPHORUS LEVEL 3.5 MG/DL (2.4-5.1)
[2022-06-21] MEDS: TIOTROPIUM INHALER/CAPSULE (SPIRIVA) INH SCH (08:03)
[2022-06-21] MEDS: SYMBICORT 160/4.5MCG INHALER 6GM INH SCH ×2 (08:03→19:44)
[2022-06-21] MEDS ORDERED: FUROSEMIDE 40 MG TAB PO SCH (09:00)
[2022-06-21] MEDS: VERAPAMIL 40 MG TAB PO SCH (09:00)
[2022-06-21 10:00] VITALS: BP 115/51
[2022-06-21] MEDS: APIXABAN 2.5 MG TAB (ELIQUIS) PO SCH ×2 (10:12→20:35)
[2022-06-21] MEDS: FOLIC ACID 1MG TAB PO SCH (10:12)
[2022-06-21] MEDS: AMIODARONE 200 MG TAB (PACERONE) PO SCH (10:12)
[2022-06-21] MEDS: MIDODRINE 5 MG TAB PO SCH ×3 (10:12→17:17)
[2022-06-21] MEDS: DRONABINOL 2.5MG CAP (MARINOL) PO SCH ×2 (10:12→20:35)
[2022-06-21] MEDS: CALCITONIN NASAL SPRAY 3.7ML BTL SCH (10:13)
[2022-06-21] MEDS: LINEZOLID 600MG TABLET (ZYVOX) PO SCH ×2 (11:31→20:36)
[2022-06-21 14:00] VITALS: BP 115/52
[2022-06-21 16:12] LABS: HEMOGLOBIN 10.4 g/dl (12.0-15.5)
[2022-06-21 18:00] VITALS: BP 114/55
[2022-06-21] MEDS: METOPROLOL TART 12.5 MG PER 1/2 TAB PO SCH (20:35)
[2022-06-21] MEDS: SIMVASTATIN 20 MG TAB PO SCH (20:35)
[2022-06-21 21:00] VITALS: BP 113/57
[2022-06-22 02:15] VITALS: BP 100/49
[2022-06-22] MEDS: LEVOTHYROXINE 100MCG TABLET (0.1MG) PO SCH (05:24)
[2022-06-22 05:36] VITALS: BP 100/47
[2022-06-22 06:03] LABS: HEMATOCRIT 31.7 % (36.0-47.0); HEMOGLOBIN 9.4 g/dl (12.0-15.5); MEAN CORPUSCULAR HEMOGLOBIN 29.7 pg (27.0-33.0); MEAN CORPUSCULAR HGB CONC 29.7 g/dl (32.0-36.5); RED BLOOD COUNT 3.17 10^6/uL (4.00-5.40); WHITE BLOOD COUNT 5.5 10^3/uL (4.0-10.0)
[2022-06-22 06:04] LABS: PLATELET COUNT, AUTOMATED 75 10^3/uL (150-450)
[2022-06-22 06:28] LABS: CALCIUM LEVEL 7.2 MG/DL (8.3-10.6); CREATININE FOR GFR 1.34 MG/DL (0.55-1.30); GLOMERULAR FILTRATION RATE 40.8 (>39); MAGNESIUM LEVEL 2.5 MG/DL (1.8-2.4); PHOSPHORUS LEVEL 3.5 MG/DL (2.4-5.1); POTASSIUM SERUM 4.2 MMOL/L (3.5-5.1)
[2022-06-22] MEDS: TIOTROPIUM INHALER/CAPSULE (SPIRIVA) INH SCH (08:09)
[2022-06-22] MEDS: SYMBICORT 160/4.5MCG INHALER 6GM INH SCH ×2 (08:10→19:41)
[2022-06-22] MEDS: CALCITONIN NASAL SPRAY 3.7ML BTL SCH (08:41)
[2022-06-22] MEDS: MIDODRINE 5 MG TAB PO SCH ×3 (08:42→17:23)
[2022-06-22] MEDS: FOLIC ACID 1MG TAB PO SCH (08:42)
[2022-06-22] MEDS: FUROSEMIDE 40 MG TAB PO SCH (08:42)
[2022-06-22] MEDS: DRONABINOL 2.5MG CAP (MARINOL) PO SCH ×2 (08:42→20:35)
[2022-06-22] MEDS: APIXABAN 2.5 MG TAB (ELIQUIS) PO SCH ×2 (08:42→20:35)
[2022-06-22] MEDS: AMIODARONE 200 MG TAB (PACERONE) PO SCH (08:42)
[2022-06-22] MEDS: METOPROLOL TART 12.5 MG PER 1/2 TAB PO SCH ×2 (08:42→20:28)
[2022-06-22] MEDS: LINEZOLID 600MG TABLET (ZYVOX) PO SCH ×2 (08:43→20:35)
[2022-06-22 10:00] VITALS: BP 102/61
[2022-06-22 14:00] VITALS: BP 102/59
[2022-06-22 18:00] VITALS: BP 103/57
[2022-06-22 20:30] VITALS: BP 105/56
[2022-06-22] MEDS: SIMVASTATIN 20 MG TAB PO SCH (20:36)
[2022-06-23 02:00] VITALS: BP 105/55
[2022-06-23 04:00] VITALS: BP 108/55
[2022-06-23] MEDS: LEVOTHYROXINE 100MCG TABLET (0.1MG) PO SCH (05:23)
[2022-06-23] MEDS: TIOTROPIUM INHALER/CAPSULE (SPIRIVA) INH SCH (07:46)
[2022-06-23] MEDS: SYMBICORT 160/4.5MCG INHALER 6GM INH SCH ×2 (07:47→19:56)
[2022-06-23 09:00] VITALS: BP 107/56
[2022-06-23] MEDS: METOPROLOL TART 12.5 MG PER 1/2 TAB PO SCH ×2 (09:00→20:08)
[2022-06-23] MEDS: AMIODARONE 200 MG TAB (PACERONE) PO SCH (10:09)
[2022-06-23] MEDS: CALCITONIN NASAL SPRAY 3.7ML BTL SCH (10:10)
[2022-06-23] MEDS: FOLIC ACID 1MG TAB PO SCH (10:10)
[2022-06-23] MEDS: LINEZOLID 600MG TABLET (ZYVOX) PO SCH ×2 (10:11→20:08)
[2022-06-23] MEDS: DRONABINOL 2.5MG CAP (MARINOL) PO SCH ×2 (10:11→20:08)
[2022-06-23] MEDS: APIXABAN 2.5 MG TAB (ELIQUIS) PO SCH ×2 (10:11→20:08)
[2022-06-23] MEDS: MIDODRINE 5 MG TAB PO SCH ×3 (10:23→16:21)
[2022-06-23 14:43] VITALS: BP 114/59
[2022-06-23 18:00] VITALS: BP 111/57
[2022-06-23 20:00] VITALS: BP 124/65
[2022-06-23] MEDS: SIMVASTATIN 20 MG TAB PO SCH (20:09)
[2022-06-24 02:00] VITALS: BP 123/63
[2022-06-24] MEDS: LEVOTHYROXINE 100MCG TABLET (0.1MG) PO SCH (05:10)
[2022-06-24 06:00] VITALS: BP 122/63
[2022-06-24] MEDS: FOLIC ACID 1MG TAB PO SCH (08:35)
[2022-06-24] MEDS: FUROSEMIDE 40 MG TAB PO SCH (08:36)
[2022-06-24] MEDS: AMIODARONE 200 MG TAB (PACERONE) PO SCH (08:36)
[2022-06-24] MEDS: LINEZOLID 600MG TABLET (ZYVOX) PO SCH ×2 (08:37→20:10)
[2022-06-24] MEDS: METOPROLOL TART 12.5 MG PER 1/2 TAB PO SCH ×2 (08:37→20:09)
[2022-06-24] MEDS: MIDODRINE 5 MG TAB PO SCH ×3 (08:37→16:06)
[2022-06-24] MEDS: DRONABINOL 2.5MG CAP (MARINOL) PO SCH ×2 (08:37→20:11)
[2022-06-24] MEDS: APIXABAN 2.5 MG TAB (ELIQUIS) PO SCH ×2 (08:37→20:11)
[2022-06-24] MEDS: CALCITONIN NASAL SPRAY 3.7ML BTL SCH (08:38)
[2022-06-24] MEDS: SYMBICORT 160/4.5MCG INHALER 6GM INH SCH ×2 (08:38→19:45)
[2022-06-24] MEDS: TIOTROPIUM INHALER/CAPSULE (SPIRIVA) INH SCH (08:38)
[2022-06-24 10:00] VITALS: BP 95/48
[2022-06-24 14:00] VITALS: BP 105/57
[2022-06-24] MEDS ORDERED: DEXTROSE 50% 50ML SYRINGE IV PRN (15:25)
[2022-06-24] MEDS ORDERED: GLUCOSE 4GM CHEW TABLET PO PRN (15:25)
[2022-06-24] MEDS ORDERED: GLUCAGON INJ 1MG VIAL SC PRN (15:25)
[2022-06-24 18:00] VITALS: BP 101/57
[2022-06-24 20:00] VITALS: BP 102/55
[2022-06-24] MEDS: SIMVASTATIN 20 MG TAB PO SCH (20:10)
[2022-06-25] VITALS (7 sets, daily range): BP systolic 102–113; BP diastolic 54–71
[2022-06-25] MEDS: LEVOTHYROXINE 100MCG TABLET (0.1MG) PO SCH (05:47)
[2022-06-25 06:50] LABS: HEMATOCRIT 33.2 % (36.0-47.0); HEMOGLOBIN 9.9 g/dl (12.0-15.5); MEAN CORPUSCULAR HEMOGLOBIN 29.5 pg (27.0-33.0); MEAN CORPUSCULAR HGB CONC 29.8 g/dl (32.0-36.5); MEAN CORPUSCULAR VOLUME 98.8 fl (80.0-96.0); RED BLOOD COUNT 3.36 10^6/uL (4.00-5.40); WHITE BLOOD COUNT 6.6 10^3/uL (4.0-10.0)
[2022-06-25 06:51] LABS: PLATELET COUNT, AUTOMATED 69 10^3/uL (150-450)
[2022-06-25 07:16] LABS: CALCIUM LEVEL 6.7 MG/DL (8.3-10.6); CREATININE FOR GFR 1.29 MG/DL (0.55-1.30); GLOMERULAR FILTRATION RATE 42.7 (>39); MAGNESIUM LEVEL 1.8 MG/DL (1.8-2.4); PHOSPHORUS LEVEL 4.2 MG/DL (2.4-5.1); POTASSIUM SERUM 3.8 MMOL/L (3.5-5.1)
[2022-06-25] MEDS: TIOTROPIUM INHALER/CAPSULE (SPIRIVA) INH SCH (08:00)
[2022-06-25] MEDS: SYMBICORT 160/4.5MCG INHALER 6GM INH SCH ×2 (08:00→20:25)
[2022-06-25] MEDS: MIDODRINE 5 MG TAB PO SCH ×3 (08:21→16:44)
[2022-06-25] MEDS: FOLIC ACID 1MG TAB PO SCH (08:21)
[2022-06-25] MEDS: LINEZOLID 600MG TABLET (ZYVOX) PO SCH ×2 (08:22→21:17)
[2022-06-25] MEDS: APIXABAN 2.5 MG TAB (ELIQUIS) PO SCH ×2 (08:22→21:18)
[2022-06-25] MEDS: AMIODARONE 200 MG TAB (PACERONE) PO SCH (08:22)
[2022-06-25] MEDS: METOPROLOL TART 12.5 MG PER 1/2 TAB PO SCH ×2 (08:22→21:00)
[2022-06-25] MEDS: DRONABINOL 2.5MG CAP (MARINOL) PO SCH ×2 (08:22→21:18)
[2022-06-25] MEDS: CALCITONIN NASAL SPRAY 3.7ML BTL SCH (08:23)
[2022-06-25] MEDS: SIMVASTATIN 20 MG TAB PO SCH (21:18)
[2022-06-26] MEDS: D5W/0.9% SODIUM CHLORIDE 1,000 ML IV SCH ×2 (01:33→15:32)
[2022-06-26 02:00] VITALS: BP 110/52
[2022-06-26] MEDS: LEVOTHYROXINE 100MCG TABLET (0.1MG) PO SCH (05:57)
[2022-06-26 06:00] VITALS: BP 119/76
[2022-06-26] MEDS: SYMBICORT 160/4.5MCG INHALER 6GM INH SCH ×2 (07:40→19:40)
[2022-06-26] MEDS: TIOTROPIUM INHALER/CAPSULE (SPIRIVA) INH SCH (07:40)
[2022-06-26] MEDS: MIDODRINE 5 MG TAB PO SCH ×3 (08:49→16:54)
[2022-06-26] MEDS: FOLIC ACID 1MG TAB PO SCH (08:50)
[2022-06-26] MEDS: METOPROLOL TART 12.5 MG PER 1/2 TAB PO SCH ×2 (08:50→21:00)
[2022-06-26] MEDS: APIXABAN 2.5 MG TAB (ELIQUIS) PO SCH ×2 (08:51→21:58)
[2022-06-26] MEDS: DRONABINOL 2.5MG CAP (MARINOL) PO SCH ×2 (08:51→21:58)
[2022-06-26] MEDS: LINEZOLID 600MG TABLET (ZYVOX) PO SCH ×2 (08:51→21:58)
[2022-06-26] MEDS: FUROSEMIDE 40 MG TAB PO SCH (08:51)
[2022-06-26] MEDS: AMIODARONE 200 MG TAB (PACERONE) PO SCH (08:51)
[2022-06-26] MEDS: CALCITONIN NASAL SPRAY 3.7ML BTL SCH (08:52)
[2022-06-26 10:00] VITALS: BP 116/54
[2022-06-26 14:00] VITALS: BP 106/56
[2022-06-26 19:14] VITALS: BP 105/70
[2022-06-26 20:00] VITALS: BP 99/62
[2022-06-26] MEDS: SIMVASTATIN 20 MG TAB PO SCH (21:58)
[2022-06-27 02:00] VITALS: BP 105/58
[2022-06-27] MEDS: LEVOTHYROXINE 100MCG TABLET (0.1MG) PO SCH (05:38)
[2022-06-27 06:00] VITALS: BP 102/60
[2022-06-27] MEDS: D5W/0.9% SODIUM CHLORIDE 1,000 ML IV SCH (06:48)
[2022-06-27] MEDS: TIOTROPIUM INHALER/CAPSULE (SPIRIVA) INH SCH (07:51)
[2022-06-27] MEDS: SYMBICORT 160/4.5MCG INHALER 6GM INH SCH ×2 (07:51→19:41)
[2022-06-27] MEDS ORDERED: MOM 30ML SUSPENSION UDC PO ONE (08:15)
[2022-06-27] MEDS: DOCUSATE SODIUM 100MG CAPSULE PO SCH ×2 (08:24→21:53)
[2022-06-27] MEDS: LINEZOLID 600MG TABLET (ZYVOX) PO SCH ×2 (08:24→21:50)
[2022-06-27] MEDS: DRONABINOL 2.5MG CAP (MARINOL) PO SCH ×2 (08:25→21:50)
[2022-06-27] MEDS: MIDODRINE 5 MG TAB PO SCH ×3 (08:25→17:26)
[2022-06-27] MEDS: METOPROLOL TART 12.5 MG PER 1/2 TAB PO SCH ×2 (08:25→21:58)
[2022-06-27] MEDS: FOLIC ACID 1MG TAB PO SCH (08:25)
[2022-06-27] MEDS: AMIODARONE 200 MG TAB (PACERONE) PO SCH (08:25)
[2022-06-27] MEDS: APIXABAN 2.5 MG TAB (ELIQUIS) PO SCH ×2 (08:26→21:50)
[2022-06-27] MEDS: CALCITONIN NASAL SPRAY 3.7ML BTL SCH (08:26)
[2022-06-27] MEDS: SIMVASTATIN 20 MG TAB PO SCH (21:50)
[2022-06-27] MEDS: ACETAMINOPHEN 500 MG TAB PO PRN (21:51)
[2022-06-28] MEDS: LEVOTHYROXINE 100MCG TABLET (0.1MG) PO SCH (05:43)
[2022-06-28 06:00] VITALS: BP 110/57
[2022-06-28] MEDS: SYMBICORT 160/4.5MCG INHALER 6GM INH SCH ×2 (08:29→20:00)
[2022-06-28] MEDS: TIOTROPIUM INHALER/CAPSULE (SPIRIVA) INH SCH (08:29)
[2022-06-28] MEDS: AMIODARONE 200 MG TAB (PACERONE) PO SCH (08:43)
[2022-06-28] MEDS: FOLIC ACID 1MG TAB PO SCH (08:43)
[2022-06-28] MEDS: FUROSEMIDE 40 MG TAB PO SCH (08:43)
[2022-06-28] MEDS: DOCUSATE SODIUM 100MG CAPSULE PO SCH ×2 (08:43→20:25)
[2022-06-28] MEDS: MIDODRINE 5 MG TAB PO SCH ×3 (08:43→17:07)
[2022-06-28] MEDS: METOPROLOL TART 12.5 MG PER 1/2 TAB PO SCH ×2 (08:43→20:25)
[2022-06-28] MEDS: APIXABAN 2.5 MG TAB (ELIQUIS) PO SCH ×2 (08:44→20:26)
[2022-06-28] MEDS: CALCITONIN NASAL SPRAY 3.7ML BTL SCH (08:44)
[2022-06-28] MEDS: DRONABINOL 2.5MG CAP (MARINOL) PO SCH ×2 (08:44→20:26)
[2022-06-28] MEDS: D5W/0.45% SODIUM CHLORIDE 1,000 ML IV SCH (10:32)
[2022-06-28 14:00] VITALS: BP 101/52
[2022-06-28 20:00] VITALS: BP 109/53
[2022-06-28] MEDS: SIMVASTATIN 20 MG TAB PO SCH (20:26)
[2022-06-29] MEDS: D5W/0.45% SODIUM CHLORIDE 1,000 ML IV SCH (01:17)
[2022-06-29 05:33] VITALS: BP 101/53
[2022-06-29] MEDS: LEVOTHYROXINE 100MCG TABLET (0.1MG) PO SCH (05:35)
[2022-06-29 06:01] LABS: HEMATOCRIT 31.8 % (36.0-47.0); HEMOGLOBIN 9.5 g/dl (12.0-15.5); MEAN CORPUSCULAR HGB CONC 29.9 g/dl (32.0-36.5); MEAN CORPUSCULAR VOLUME 100.3 fl (80.0-96.0); RED BLOOD COUNT 3.17 10^6/uL (4.00-5.40); WHITE BLOOD COUNT 5.6 10^3/uL (4.0-10.0)
[2022-06-29 06:16] LABS: PLATELET COUNT, AUTOMATED 35 10^3/uL (150-450)
[2022-06-29 06:27] LABS: CALCIUM LEVEL 6.5 MG/DL (8.3-10.6); CREATININE FOR GFR 1.12 MG/DL (0.55-1.30); GLOMERULAR FILTRATION RATE 50.2 (>39); MAGNESIUM LEVEL 1.8 MG/DL (1.8-2.4); PHOSPHORUS LEVEL 2.9 MG/DL (2.4-5.1); POTASSIUM SERUM 3.3 MMOL/L (3.5-5.1)
[2022-06-29] MEDS: SYMBICORT 160/4.5MCG INHALER 6GM INH SCH ×2 (07:56→19:42)
[2022-06-29] MEDS: TIOTROPIUM INHALER/CAPSULE (SPIRIVA) INH SCH (07:56)
[2022-06-29 09:00] VITALS: BP 101/54
[2022-06-29] MEDS: METOPROLOL TART 12.5 MG PER 1/2 TAB PO SCH (09:00)
[2022-06-29] MEDS: FOLIC ACID 1MG TAB PO SCH (09:53)
[2022-06-29] MEDS: AMIODARONE 200 MG TAB (PACERONE) PO SCH (09:53)
[2022-06-29] MEDS: DOCUSATE SODIUM 100MG CAPSULE PO SCH ×2 (09:53→20:42)
[2022-06-29] MEDS: APIXABAN 2.5 MG TAB (ELIQUIS) PO SCH ×2 (09:53→20:41)
[2022-06-29] MEDS: MIDODRINE 5 MG TAB PO SCH ×3 (09:55→16:23)
[2022-06-29] MEDS: KCL 10MEQ/100ML SWI (KRUN) 10 MEQ in IV 1 EA IV SCH ×6 (09:55→23:10)
[2022-06-29] MEDS: CALCITONIN NASAL SPRAY 3.7ML BTL SCH (09:56)
[2022-06-29] MEDS: DRONABINOL 2.5MG CAP (MARINOL) PO SCH ×2 (09:56→20:39)
[2022-06-29] MEDS ORDERED: POTASSIUM CHLORIDE 10% LIQ 20MEQ/15ML UDC PO ONE (19:30)
[2022-06-29] MEDS ORDERED: POTASSIUM CHLORIDE 10MEQ SR TABLET PO ONE (19:45)
[2022-06-29] MEDS: SIMVASTATIN 20 MG TAB PO SCH (20:41)
[2022-06-30] MEDS: KCL 10MEQ/100ML SWI (KRUN) 10 MEQ in IV 1 EA IV SCH (00:17)
[2022-06-30] MEDS: LEVOTHYROXINE 100MCG TABLET (0.1MG) PO SCH (05:20)
[2022-06-30 05:32] LABS: HEMATOCRIT 30.4 % (36.0-47.0); HEMOGLOBIN 9.2 g/dl (12.0-15.5); MEAN CORPUSCULAR HEMOGLOBIN 30.4 pg (27.0-33.0); MEAN CORPUSCULAR HGB CONC 30.3 g/dl (32.0-36.5); MEAN CORPUSCULAR VOLUME 100.3 fl (80.0-96.0); RED BLOOD COUNT 3.03 10^6/uL (4.00-5.40); WHITE BLOOD COUNT 3.9 10^3/uL (4.0-10.0)
[2022-06-30 05:33] LABS: PLATELET COUNT, AUTOMATED 26 10^3/uL (150-450)
[2022-06-30 05:39] VITALS: BP 118/68
[2022-06-30 06:03] LABS: CALCIUM LEVEL 6.6 MG/DL (8.3-10.6); CREATININE FOR GFR 1.06 MG/DL (0.55-1.30); GLOMERULAR FILTRATION RATE 53.5 (>39); MAGNESIUM LEVEL 1.7 MG/DL (1.8-2.4); PHOSPHORUS LEVEL 2.9 MG/DL (2.4-5.1); POTASSIUM SERUM 4.7 MMOL/L (3.5-5.1)
[2022-06-30] MEDS: TIOTROPIUM INHALER/CAPSULE (SPIRIVA) INH SCH (07:41)
[2022-06-30] MEDS: SYMBICORT 160/4.5MCG INHALER 6GM INH SCH ×2 (07:41→20:26)
[2022-06-30] MEDS: DOCUSATE SODIUM 100MG CAPSULE PO SCH ×2 (09:00→21:00)
[2022-06-30] MEDS: MAGNESIUM OXIDE 400MG TAB (MAG-OX) PO SCH (09:02)
[2022-06-30] MEDS: APIXABAN 2.5 MG TAB (ELIQUIS) PO SCH (09:02)
[2022-06-30] MEDS: AMIODARONE 200 MG TAB (PACERONE) PO SCH (09:02)
[2022-06-30] MEDS: DRONABINOL 2.5MG CAP (MARINOL) PO SCH ×2 (09:03→21:01)
[2022-06-30] MEDS: FOLIC ACID 1MG TAB PO SCH (09:03)
[2022-06-30] MEDS: MIDODRINE 5 MG TAB PO SCH ×3 (09:03→16:22)
[2022-06-30] MEDS: FUROSEMIDE 40 MG TAB PO SCH (09:03)
[2022-06-30] MEDS: CALCITONIN NASAL SPRAY 3.7ML BTL SCH (09:04)
[2022-06-30 09:33] LABS: HEMATOCRIT 32.4 % (36.0-47.0); HEMOGLOBIN 9.6 g/dl (12.0-15.5); MEAN CORPUSCULAR HEMOGLOBIN 29.6 pg (27.0-33.0); MEAN CORPUSCULAR HGB CONC 29.6 g/dl (32.0-36.5); RED BLOOD COUNT 3.24 10^6/uL (4.00-5.40)
[2022-06-30 09:54] LABS: PLATELET COUNT, AUTOMATED 25 10^3/uL (150-450)
[2022-06-30 13:41] LABS: BILIRUBIN,DIRECT 0.3 MG/DL (<0.4); BILIRUBIN,TOTAL 0.6 MG/DL (0.3-1.2)
[2022-06-30 14:00] VITALS: BP 107/58
[2022-06-30] MEDS: SIMVASTATIN 20 MG TAB PO SCH (21:01)
[2022-06-30 22:00] VITALS: BP 110/58
[2022-07-01] MEDS: LEVOTHYROXINE 100MCG TABLET (0.1MG) PO SCH (05:35)
[2022-07-01 05:42] VITALS: BP 101/47
[2022-07-01 07:17] LABS: HEMATOCRIT 28.6 % (36.0-47.0); HEMOGLOBIN 8.7 g/dl (12.0-15.5); MEAN CORPUSCULAR HGB CONC 30.4 g/dl (32.0-36.5); MEAN CORPUSCULAR VOLUME 98.6 fl (80.0-96.0); WHITE BLOOD COUNT 3.6 10^3/uL (4.0-10.0)
[2022-07-01 07:20] LABS: PLATELET COUNT, AUTOMATED 17 10^3/uL (150-450)
[2022-07-01 07:55] LABS: CALCIUM LEVEL 6.7 MG/DL (8.3-10.6); CREATININE FOR GFR 0.96 MG/DL (0.55-1.30); MAGNESIUM LEVEL 1.7 MG/DL (1.8-2.4); POTASSIUM SERUM 3.8 MMOL/L (3.5-5.1)
[2022-07-01] MEDS: DRONABINOL 2.5MG CAP (MARINOL) PO SCH ×2 (08:32→19:53)
[2022-07-01] MEDS: CALCITONIN NASAL SPRAY 3.7ML BTL SCH (08:32)
[2022-07-01] MEDS: DOCUSATE SODIUM 100MG CAPSULE PO SCH ×2 (08:32→19:53)
[2022-07-01] MEDS: FOLIC ACID 1MG TAB PO SCH (08:32)
[2022-07-01] MEDS: MAGNESIUM OXIDE 400MG TAB (MAG-OX) PO SCH (08:32)
[2022-07-01] MEDS: MIDODRINE 5 MG TAB PO SCH ×3 (08:33→15:36)
[2022-07-01] MEDS: AMIODARONE 200 MG TAB (PACERONE) PO SCH (08:33)
[2022-07-01] MEDS: SYMBICORT 160/4.5MCG INHALER 6GM INH SCH ×2 (08:41→20:18)
[2022-07-01] MEDS: TIOTROPIUM INHALER/CAPSULE (SPIRIVA) INH SCH (08:41)
[2022-07-01 14:00] VITALS: BP 131/59
[2022-07-01 18:02] LABS: HEMATOCRIT 31.2 % (36.0-47.0); HEMOGLOBIN 9.4 g/dl (12.0-15.5); MEAN CORPUSCULAR HEMOGLOBIN 29.4 pg (27.0-33.0); MEAN CORPUSCULAR HGB CONC 30.1 g/dl (32.0-36.5); MEAN CORPUSCULAR VOLUME 97.5 fl (80.0-96.0)
[2022-07-01 18:18] LABS: PLATELET COUNT, AUTOMATED 18 10^3/uL (150-450)
[2022-07-01] MEDS: SIMVASTATIN 20 MG TAB PO SCH (19:53)
[2022-07-02 05:51] VITALS: BP 126/59
[2022-07-02 06:11] LABS: HEMATOCRIT 28.5 % (36.0-47.0); HEMOGLOBIN 8.8 g/dl (12.0-15.5); MEAN CORPUSCULAR HEMOGLOBIN 29.8 pg (27.0-33.0); MEAN CORPUSCULAR HGB CONC 30.9 g/dl (32.0-36.5); MEAN CORPUSCULAR VOLUME 96.6 fl (80.0-96.0); RED BLOOD COUNT 2.95 10^6/uL (4.00-5.40); WHITE BLOOD COUNT 1.5 10^3/uL (4.0-10.0)
[2022-07-02] MEDS: LEVOTHYROXINE 100MCG TABLET (0.1MG) PO SCH (06:13)
[2022-07-02 06:21] LABS: PLATELET COUNT, AUTOMATED 13 10^3/uL (150-450)
[2022-07-02 06:37] LABS: BLOOD UREA NITROGEN 19 MG/DL (9-23); CALCIUM LEVEL 6.9 MG/DL (8.3-10.6); CARBON DIOXIDE LEVEL 25 MMOL/L (20-31); CHLORIDE LEVEL 107 MMOL/L (98-107); CREATININE FOR GFR 0.93 MG/DL (0.55-1.30); GLOMERULAR FILTRATION RATE > 60.0 (>39); GLUCOSE, FASTING 113 MG/DL (74-106); MAGNESIUM LEVEL 1.9 MG/DL (1.8-2.4); PHOSPHORUS LEVEL 3.6 MG/DL (2.4-5.1); POTASSIUM SERUM 4.6 MMOL/L (3.5-5.1); SODIUM LEVEL 139 MMOL/L (136-145)
[2022-07-02] MEDS: SYMBICORT 160/4.5MCG INHALER 6GM INH SCH ×2 (08:11→19:37)
[2022-07-02] MEDS: TIOTROPIUM INHALER/CAPSULE (SPIRIVA) INH SCH (08:11)
[2022-07-02] MEDS: DRONABINOL 2.5MG CAP (MARINOL) PO SCH ×2 (09:00→20:44)
[2022-07-02] MEDS: DOCUSATE SODIUM 100MG CAPSULE PO SCH ×2 (09:56→20:44)
[2022-07-02] MEDS: FOLIC ACID 1MG TAB PO SCH (09:57)
[2022-07-02] MEDS: FUROSEMIDE 40 MG TAB PO SCH (09:57)
[2022-07-02] MEDS: MAGNESIUM OXIDE 400MG TAB (MAG-OX) PO SCH (09:57)
[2022-07-02] MEDS: AMIODARONE 200 MG TAB (PACERONE) PO SCH (09:57)
[2022-07-02] MEDS: CALCITONIN NASAL SPRAY 3.7ML BTL SCH (09:58)
[2022-07-02] MEDS: MIDODRINE 5 MG TAB PO SCH ×3 (09:58→16:44)
[2022-07-02] MEDS: ACETAMINOPHEN 500 MG TAB PO PRN (12:12)
[2022-07-02 14:00] VITALS: BP 129/67
[2022-07-02 15:28] LABS: HEMATOCRIT 29.4 % (36.0-47.0); HEMOGLOBIN 9.2 g/dl (12.0-15.5); LYMPH # 0.3 10^3/uL (1.5-5.0); LYMPH % 13.8 % (24.0-44.0); MEAN CORPUSCULAR HEMOGLOBIN 29.9 pg (27.0-33.0); MEAN CORPUSCULAR HGB CONC 31.3 g/dl (32.0-36.5); MEAN CORPUSCULAR VOLUME 95.5 fl (80.0-96.0); MONO # 0.2 10^3/uL (0.0-0.8); MONO % 10.6 % (2.0-8.0); NEUTROPHILS # 1.6 10^3/uL (1.5-8.5); NEUTROPHILS % 75.1 % (36.0-66.0); RED BLOOD COUNT 3.08 10^6/uL (4.00-5.40); WHITE BLOOD COUNT 2.2 10^3/uL (4.0-10.0)
[2022-07-02] MEDS ORDERED: ISOVUE-370 76% 100ML VIAL As Ordered ONE (15:28)
[2022-07-02 15:33] LABS: PLATELET COUNT, AUTOMATED 15 10^3/uL (150-450)
[2022-07-02 16:13] LABS: IRON (FE) 85 UG/DL (50-170); PERCENT SATURATION 53.1 % (13.2-45.0); TOTAL IRON BINDING CAPACITY 160 UG/DL (250-425)
[2022-07-02 16:16] LABS: FERRITIN 137.5 NG/ML (7.3-270.7); FOLATE > 24.00 NG/ML (>5.4); VITAMIN B12 LEVEL 538 PG/ML (211-911)
[2022-07-02] MEDS: CEFEPIME HCL 2 GM in D5W MINI-BAG PLUS 50 ML IV SCH (16:44)
[2022-07-02] MEDS: SIMVASTATIN 20 MG TAB PO SCH (20:44)
[2022-07-02 21:10] VITALS: BP 121/54
[2022-07-03] MEDS: CEFEPIME HCL 2 GM in D5W MINI-BAG PLUS 50 ML IV SCH ×2 (04:14→16:02)
[2022-07-03] MEDS: LEVOTHYROXINE 100MCG TABLET (0.1MG) PO SCH (05:33)
[2022-07-03 05:55] LABS: HEMOGLOBIN 8.3 g/dl (12.0-15.5); LYMPH # 0.4 10^3/uL (1.5-5.0); LYMPH % 17.5 % (24.0-44.0); MEAN CORPUSCULAR HEMOGLOBIN 29.4 pg (27.0-33.0); MEAN CORPUSCULAR HGB CONC 30.7 g/dl (32.0-36.5); MEAN CORPUSCULAR VOLUME 95.7 fl (80.0-96.0); MONO # 0.2 10^3/uL (0.0-0.8); MONO % 11.7 % (2.0-8.0); NEUTROPHILS # 1.5 10^3/uL (1.5-8.5); NEUTROPHILS % 70.3 % (36.0-66.0); RED BLOOD COUNT 2.82 10^6/uL (4.00-5.40); WHITE BLOOD COUNT 2.1 10^3/uL (4.0-10.0)
[2022-07-03 06:00] VITALS: BP 118/55
[2022-07-03 06:03] LABS: PLATELET COUNT, AUTOMATED 15 10^3/uL (150-450)
[2022-07-03 06:14] LABS: CALCIUM LEVEL 6.8 MG/DL (8.3-10.6); CREATININE FOR GFR 1.06 MG/DL (0.55-1.30); GLOMERULAR FILTRATION RATE 53.5 (>39); PHOSPHORUS LEVEL 3.2 MG/DL (2.4-5.1); POTASSIUM SERUM 4.1 MMOL/L (3.5-5.1)
[2022-07-03] MEDS: SYMBICORT 160/4.5MCG INHALER 6GM INH SCH ×2 (08:43→19:46)
[2022-07-03] MEDS: TIOTROPIUM INHALER/CAPSULE (SPIRIVA) INH SCH (08:43)
[2022-07-03] MEDS: DRONABINOL 2.5MG CAP (MARINOL) PO SCH ×2 (08:55→22:04)
[2022-07-03] MEDS: MIDODRINE 5 MG TAB PO SCH ×3 (08:55→16:02)
[2022-07-03] MEDS: MAGNESIUM OXIDE 400MG TAB (MAG-OX) PO SCH (08:55)
[2022-07-03] MEDS: AMIODARONE 200 MG TAB (PACERONE) PO SCH (08:55)
[2022-07-03] MEDS: DOCUSATE SODIUM 100MG CAPSULE PO SCH ×2 (08:55→21:00)
[2022-07-03] MEDS: FOLIC ACID 1MG TAB PO SCH (08:55)
[2022-07-03] MEDS: CALCITONIN NASAL SPRAY 3.7ML BTL SCH (08:56)
[2022-07-03 14:00] VITALS: BP 117/55
[2022-07-03] MEDS: CALCIUM/VITAMIN D 500 MG TAB PO SCH (16:02)
[2022-07-03] MEDS: PANTOPRAZOLE 40MG TAB (PROTONIX) PO SCH (16:11)
[2022-07-03 20:40] VITALS: BP 113/53
[2022-07-03] MEDS: SIMVASTATIN 20 MG TAB PO SCH (22:04)
[2022-07-04] MEDS: CEFEPIME HCL 2 GM in D5W MINI-BAG PLUS 50 ML IV SCH (04:14)
[2022-07-04] MEDS: LEVOTHYROXINE 100MCG TABLET (0.1MG) PO SCH (05:16)
[2022-07-04 06:00] VITALS: BP 112/54
[2022-07-04 07:52] LABS: HEMATOCRIT 26.6 % (36.0-47.0); HEMOGLOBIN 8.2 g/dl (12.0-15.5); MEAN CORPUSCULAR HEMOGLOBIN 29.8 pg (27.0-33.0); MEAN CORPUSCULAR HGB CONC 30.8 g/dl (32.0-36.5); MEAN CORPUSCULAR VOLUME 96.7 fl (80.0-96.0); RED BLOOD COUNT 2.75 10^6/uL (4.00-5.40); WHITE BLOOD COUNT 2.1 10^3/uL (4.0-10.0)
[2022-07-04 08:04] LABS: PLATELET COUNT, AUTOMATED 14 10^3/uL (150-450)
[2022-07-04] MEDS: TIOTROPIUM INHALER/CAPSULE (SPIRIVA) INH SCH (08:11)
[2022-07-04] MEDS: SYMBICORT 160/4.5MCG INHALER 6GM INH SCH ×2 (08:11→20:01)
[2022-07-04] MEDS: PANTOPRAZOLE 40MG TAB (PROTONIX) PO SCH (08:22)
[2022-07-04] MEDS: AMIODARONE 200 MG TAB (PACERONE) PO SCH (08:22)
[2022-07-04] MEDS: CALCIUM/VITAMIN D 500 MG TAB PO SCH (08:22)
[2022-07-04] MEDS: DOCUSATE SODIUM 100MG CAPSULE PO SCH ×2 (08:22→21:46)
[2022-07-04] MEDS: MAGNESIUM OXIDE 400MG TAB (MAG-OX) PO SCH (08:22)
[2022-07-04 08:25] LABS: CALCIUM LEVEL 7.3 MG/DL (8.3-10.6); CREATININE FOR GFR 0.99 MG/DL (0.55-1.30); GLOMERULAR FILTRATION RATE 57.8 (>39); POTASSIUM SERUM 3.7 MMOL/L (3.5-5.1)
[2022-07-04] MEDS: MIDODRINE 5 MG TAB PO SCH ×3 (08:25→16:15)
[2022-07-04] MEDS: FOLIC ACID 1MG TAB PO SCH (08:25)
[2022-07-04] MEDS: FUROSEMIDE 40 MG TAB PO SCH (08:25)
[2022-07-04] MEDS: CALCITONIN NASAL SPRAY 3.7ML BTL SCH (08:29)
[2022-07-04] MEDS: DRONABINOL 2.5MG CAP (MARINOL) PO SCH ×2 (08:40→21:46)
[2022-07-04 14:00] VITALS: BP 112/56
[2022-07-04 21:00] VITALS: BP 114/55
[2022-07-04] MEDS: SIMVASTATIN 20 MG TAB PO SCH (21:46)
[2022-07-05 05:20] VITALS: BP 113/54
[2022-07-05] MEDS: LEVOTHYROXINE 100MCG TABLET (0.1MG) PO SCH (05:47)
[2022-07-05 05:48] LABS: HEMATOCRIT 25.4 % (36.0-47.0); HEMOGLOBIN 8.1 g/dl (12.0-15.5); MEAN CORPUSCULAR HEMOGLOBIN 30.1 pg (27.0-33.0); MEAN CORPUSCULAR HGB CONC 31.9 g/dl (32.0-36.5); MEAN CORPUSCULAR VOLUME 94.4 fl (80.0-96.0); RED BLOOD COUNT 2.69 10^6/uL (4.00-5.40); WHITE BLOOD COUNT 2.6 10^3/uL (4.0-10.0)
[2022-07-05 05:54] LABS: PLATELET COUNT, AUTOMATED 15 10^3/uL (150-450)
[2022-07-05 06:20] LABS: CALCIUM LEVEL 7.3 MG/DL (8.3-10.6); CREATININE FOR GFR 1.11 MG/DL (0.55-1.30); GLOMERULAR FILTRATION RATE 50.6 (>39); POTASSIUM SERUM 2.9 MMOL/L (3.5-5.1)
[2022-07-05 06:27] LABS: ATYPICAL LYMPH 2 % (0-5); LYMPHOCYTES 22 % (16-44); MONOCYTES 20 % (0-5); NEUTROPHILS 56 % (28-66); PLATELET ESTIMATE MARKED DECREASE (NORMAL)
[2022-07-05 06:28] LABS: MICROCYTOSIS 1+; OVALOCYTES 1+; POIKILOCYTOSIS 2+
[2022-07-05 06:29] LABS: ANISOCYTOSIS 1+
[2022-07-05] MEDS ORDERED: KCL 10MEQ/100ML SWI (KRUN) 10 MEQ in IV 1 EA IV ONE ×3 (07:00→19:00)
[2022-07-05] MEDS ORDERED: POTASSIUM CHLORIDE 10% LIQ 20MEQ/15ML UDC PO ONE ×3 (07:00→18:40)
[2022-07-05] MEDS: TIOTROPIUM INHALER/CAPSULE (SPIRIVA) INH SCH (08:05)
[2022-07-05] MEDS: SYMBICORT 160/4.5MCG INHALER 6GM INH SCH ×2 (08:05→20:23)
[2022-07-05 09:32] VITALS: BP 109/56
[2022-07-05] MEDS: AMIODARONE 200 MG TAB (PACERONE) PO SCH (09:33)
[2022-07-05] MEDS: CALCIUM/VITAMIN D 500 MG TAB PO SCH (09:33)
[2022-07-05] MEDS: DRONABINOL 2.5MG CAP (MARINOL) PO SCH ×2 (09:33→20:08)
[2022-07-05] MEDS: FOLIC ACID 1MG TAB PO SCH (09:34)
[2022-07-05] MEDS: DOCUSATE SODIUM 100MG CAPSULE PO SCH ×2 (09:34→20:08)
[2022-07-05] MEDS: PANTOPRAZOLE 40MG TAB (PROTONIX) PO SCH (09:34)
[2022-07-05] MEDS: MIDODRINE 5 MG TAB PO SCH ×3 (09:34→16:34)
[2022-07-05] MEDS: MAGNESIUM OXIDE 400MG TAB (MAG-OX) PO SCH (09:34)
[2022-07-05] MEDS: CALCITONIN NASAL SPRAY 3.7ML BTL SCH (09:36)
[2022-07-05 13:17] VITALS: BP 105/56
[2022-07-05 14:00] VITALS: BP 110/55
[2022-07-05 16:34] VITALS: BP 119/58
[2022-07-05] MEDS ORDERED: POTASSIUM CHLORIDE 10MEQ SR TABLET PO ONE (18:25)
[2022-07-05] MEDS: SIMVASTATIN 20 MG TAB PO SCH (20:08)
[2022-07-05 21:00] VITALS: BP 122/51
[2022-07-06] MEDS: LEVOTHYROXINE 100MCG TABLET (0.1MG) PO SCH (05:01)
[2022-07-06 05:15] VITALS: BP 113/54
[2022-07-06 06:16] LABS: HEMATOCRIT 24.9 % (36.0-47.0); HEMOGLOBIN 7.9 g/dl (12.0-15.5); MEAN CORPUSCULAR HEMOGLOBIN 29.9 pg (27.0-33.0); MEAN CORPUSCULAR HGB CONC 31.7 g/dl (32.0-36.5); MEAN CORPUSCULAR VOLUME 94.3 fl (80.0-96.0); RED BLOOD COUNT 2.64 10^6/uL (4.00-5.40); WHITE BLOOD COUNT 3.5 10^3/uL (4.0-10.0)
[2022-07-06 06:17] LABS: PLATELET COUNT, AUTOMATED 23 10^3/uL (150-450)
[2022-07-06 07:29] LABS: CALCIUM LEVEL 7.2 MG/DL (8.3-10.6); CREATININE FOR GFR 1.03 MG/DL (0.55-1.30); GLOMERULAR FILTRATION RATE 55.2 (>39); MAGNESIUM LEVEL 2.1 MG/DL (1.8-2.4); PHOSPHORUS LEVEL 2.2 MG/DL (2.4-5.1); POTASSIUM SERUM 3.1 MMOL/L (3.5-5.1)
[2022-07-06] MEDS: SYMBICORT 160/4.5MCG INHALER 6GM INH SCH ×2 (07:44→20:01)
[2022-07-06] MEDS: TIOTROPIUM INHALER/CAPSULE (SPIRIVA) INH SCH (07:44)
[2022-07-06] MEDS: FUROSEMIDE 40 MG TAB PO SCH (09:00)
[2022-07-06 09:54] VITALS: BP 96/46
[2022-07-06] MEDS: DRONABINOL 2.5MG CAP (MARINOL) PO SCH ×2 (09:55→21:00)
[2022-07-06] MEDS: MIDODRINE 5 MG TAB PO SCH ×3 (09:55→17:02)
[2022-07-06] MEDS: CALCITONIN NASAL SPRAY 3.7ML BTL SCH (09:55)
[2022-07-06] MEDS: CALCIUM/VITAMIN D 500 MG TAB PO SCH (09:55)
[2022-07-06] MEDS: AMIODARONE 200 MG TAB (PACERONE) PO SCH (09:56)
[2022-07-06] MEDS: MAGNESIUM OXIDE 400MG TAB (MAG-OX) PO SCH (09:56)
[2022-07-06] MEDS: DOCUSATE SODIUM 100MG CAPSULE PO SCH ×2 (09:57→21:01)
[2022-07-06] MEDS: FOLIC ACID 1MG TAB PO SCH (09:57)
[2022-07-06] MEDS: PANTOPRAZOLE 40MG TAB (PROTONIX) PO SCH (09:57)
[2022-07-06] MEDS ORDERED: MAALOX 30 ML SUSP *UDC PO ONE (12:10)
[2022-07-06] MEDS ORDERED: ONDANSETRON 4MG 2ML VIAL IV ONE (13:00)
[2022-07-06] MEDS ORDERED: BISACODYL 10MG SUPP PR ONE (13:00)
[2022-07-06 14:00] VITALS: BP 101/50
[2022-07-06 17:03] VITALS: BP 103/49
[2022-07-06 20:00] VITALS: BP 107/55
[2022-07-06] MEDS: SIMVASTATIN 20 MG TAB PO SCH (21:00)
[2022-07-07] MEDS: ACETAMINOPHEN 500 MG TAB PO PRN (04:03)
[2022-07-07] MEDS: LEVOTHYROXINE 100MCG TABLET (0.1MG) PO SCH (05:34)
[2022-07-07 05:43] VITALS: BP 104/53
[2022-07-07] MEDS: SYMBICORT 160/4.5MCG INHALER 6GM INH SCH ×2 (07:42→19:55)
[2022-07-07] MEDS: TIOTROPIUM INHALER/CAPSULE (SPIRIVA) INH SCH (07:42)
[2022-07-07] MEDS: MIDODRINE 5 MG TAB PO SCH ×3 (08:17→16:15)
[2022-07-07] MEDS: DRONABINOL 2.5MG CAP (MARINOL) PO SCH ×2 (08:17→20:22)
[2022-07-07] MEDS: AMIODARONE 200 MG TAB (PACERONE) PO SCH (08:18)
[2022-07-07 08:19] LABS: HEMATOCRIT 25.9 % (36.0-47.0); HEMOGLOBIN 7.9 g/dl (12.0-15.5); MEAN CORPUSCULAR HEMOGLOBIN 29.6 pg (27.0-33.0); MEAN CORPUSCULAR HGB CONC 30.5 g/dl (32.0-36.5); RED BLOOD COUNT 2.67 10^6/uL (4.00-5.40); WHITE BLOOD COUNT 3.8 10^3/uL (4.0-10.0)
[2022-07-07] MEDS: CALCIUM/VITAMIN D 500 MG TAB PO SCH (08:19)
[2022-07-07] MEDS: FOLIC ACID 1MG TAB PO SCH (08:19)
[2022-07-07] MEDS: PANTOPRAZOLE 40MG TAB (PROTONIX) PO SCH (08:19)
[2022-07-07] MEDS: MAGNESIUM OXIDE 400MG TAB (MAG-OX) PO SCH (08:19)
[2022-07-07] MEDS: CALCITONIN NASAL SPRAY 3.7ML BTL SCH (08:19)
[2022-07-07] MEDS: DOCUSATE SODIUM 100MG CAPSULE PO SCH ×2 (08:19→20:22)
[2022-07-07 08:21] LABS: PLATELET COUNT, AUTOMATED 28 10^3/uL (150-450)
[2022-07-07 08:43] LABS: CALCIUM LEVEL 7.3 MG/DL (8.3-10.6); CREATININE FOR GFR 1.07 MG/DL (0.55-1.30); GLOMERULAR FILTRATION RATE 52.8 (>39); PHOSPHORUS LEVEL 2.5 MG/DL (2.4-5.1); POTASSIUM SERUM 3.1 MMOL/L (3.5-5.1)
[2022-07-07 14:04] VITALS: BP 107/53
[2022-07-07 20:00] VITALS: BP 129/56
[2022-07-07] MEDS: SIMVASTATIN 20 MG TAB PO SCH (20:22)
[2022-07-08 06:00] VITALS: BP 99/44
[2022-07-08 06:18] LABS: HEMATOCRIT 24.6 % (36.0-47.0); HEMOGLOBIN 7.6 g/dl (12.0-15.5); MEAN CORPUSCULAR HEMOGLOBIN 29.7 pg (27.0-33.0); MEAN CORPUSCULAR HGB CONC 30.9 g/dl (32.0-36.5); MEAN CORPUSCULAR VOLUME 96.1 fl (80.0-96.0); RED BLOOD COUNT 2.56 10^6/uL (4.00-5.40); WHITE BLOOD COUNT 3.9 10^3/uL (4.0-10.0)
[2022-07-08 06:22] LABS: PLATELET COUNT, AUTOMATED 29 10^3/uL (150-450)
[2022-07-08] MEDS: LEVOTHYROXINE 100MCG TABLET (0.1MG) PO SCH (06:25)
[2022-07-08 06:44] LABS: CALCIUM LEVEL 7.5 MG/DL (8.3-10.6); CREATININE FOR GFR 1.01 MG/DL (0.55-1.30); GLOMERULAR FILTRATION RATE 56.4 (>39); MAGNESIUM LEVEL 2.1 MG/DL (1.8-2.4); PHOSPHORUS LEVEL 2.2 MG/DL (2.4-5.1); POTASSIUM SERUM 2.8 MMOL/L (3.5-5.1)
[2022-07-08] MEDS: KCL 10MEQ/100ML SWI (KRUN) 10 MEQ in IV 1 EA IV SCH ×8 (07:25→18:33)
[2022-07-08] MEDS: MIDODRINE 5 MG TAB PO SCH ×3 (07:26→16:02)
[2022-07-08] MEDS: TIOTROPIUM INHALER/CAPSULE (SPIRIVA) INH SCH (07:44)
[2022-07-08] MEDS: SYMBICORT 160/4.5MCG INHALER 6GM INH SCH ×2 (07:44→19:54)
[2022-07-08] MEDS ORDERED: POTASSIUM CHL PWD 20MEQ PACKET PO ONE (08:00)
[2022-07-08] MEDS: FUROSEMIDE 40 MG TAB PO SCH (08:45)
[2022-07-08] MEDS: MAGNESIUM OXIDE 400MG TAB (MAG-OX) PO SCH (09:00)
[2022-07-08] MEDS: DOCUSATE SODIUM 100MG CAPSULE PO SCH ×2 (09:00→20:11)
[2022-07-08] MEDS: PANTOPRAZOLE 40MG TAB (PROTONIX) PO SCH (09:00)
[2022-07-08] MEDS ORDERED: POTASSIUM PHOSPHATE INJ 15 MMOL in D5W 250 ML IV ONE ×2 (09:00→12:00)
[2022-07-08] MEDS: DRONABINOL 2.5MG CAP (MARINOL) PO SCH ×2 (09:13→20:12)
[2022-07-08] MEDS: CALCIUM/VITAMIN D 500 MG TAB PO SCH (09:13)
[2022-07-08] MEDS: CALCITONIN NASAL SPRAY 3.7ML BTL SCH (09:14)
[2022-07-08] MEDS: FOLIC ACID 1MG TAB PO SCH (09:14)
[2022-07-08] MEDS: AMIODARONE 200 MG TAB (PACERONE) PO SCH (09:14)
[2022-07-08 13:54] VITALS: BP 115/59
[2022-07-08] MEDS: SIMVASTATIN 20 MG TAB PO SCH (20:12)
[2022-07-08 21:14] VITALS: BP 114/59
[2022-07-09] MEDS: LEVOTHYROXINE 100MCG TABLET (0.1MG) PO SCH (05:37)
[2022-07-09 05:44] VITALS: BP 109/59
[2022-07-09] MEDS: SYMBICORT 160/4.5MCG INHALER 6GM INH SCH ×2 (07:19→19:45)
[2022-07-09] MEDS: TIOTROPIUM INHALER/CAPSULE (SPIRIVA) INH SCH (07:19)
[2022-07-09 07:41] LABS: HEMATOCRIT 26.4 % (36.0-47.0); HEMOGLOBIN 8.1 g/dl (12.0-15.5); MEAN CORPUSCULAR HEMOGLOBIN 29.7 pg (27.0-33.0); MEAN CORPUSCULAR HGB CONC 30.7 g/dl (32.0-36.5); MEAN CORPUSCULAR VOLUME 96.7 fl (80.0-96.0); RED BLOOD COUNT 2.73 10^6/uL (4.00-5.40); WHITE BLOOD COUNT 4.9 10^3/uL (4.0-10.0)
[2022-07-09 07:45] LABS: PLATELET COUNT, AUTOMATED 31 10^3/uL (150-450)
[2022-07-09] MEDS: DOCUSATE SODIUM 100MG CAPSULE PO SCH ×2 (08:29→20:09)
[2022-07-09] MEDS: FOLIC ACID 1MG TAB PO SCH (08:29)
[2022-07-09] MEDS: AMIODARONE 200 MG TAB (PACERONE) PO SCH (08:29)
[2022-07-09] MEDS: DRONABINOL 2.5MG CAP (MARINOL) PO SCH ×2 (08:30→20:09)
[2022-07-09] MEDS: CALCIUM/VITAMIN D 500 MG TAB PO SCH (08:30)
[2022-07-09] MEDS: PANTOPRAZOLE 40MG TAB (PROTONIX) PO SCH (08:30)
[2022-07-09] MEDS: MAGNESIUM OXIDE 400MG TAB (MAG-OX) PO SCH (08:30)
[2022-07-09] MEDS: MIDODRINE 5 MG TAB PO SCH ×3 (08:30→16:42)
[2022-07-09] MEDS: CALCITONIN NASAL SPRAY 3.7ML BTL SCH (08:31)
[2022-07-09 10:35] LABS: BLOOD UREA NITROGEN 13 MG/DL (9-23); CALCIUM LEVEL 6.9 MG/DL (8.3-10.6); CARBON DIOXIDE LEVEL 26 MMOL/L (20-31); CHLORIDE LEVEL 106 MMOL/L (98-107); CREATININE FOR GFR 0.95 MG/DL (0.55-1.30); GLOMERULAR FILTRATION RATE > 60.0 (>39); GLUCOSE, FASTING 65 MG/DL (74-106); MAGNESIUM LEVEL 1.9 MG/DL (1.8-2.4); PHOSPHORUS LEVEL 2.5 MG/DL (2.4-5.1); SODIUM LEVEL 138 MMOL/L (136-145)
[2022-07-09 10:36] LABS: POTASSIUM SERUM 4.8 MMOL/L (3.5-5.1)
[2022-07-09] MEDS ORDERED: fentaNYL 100 MCG/2 ML INJECTION As Ordered ONE (11:17)
[2022-07-09] MEDS ORDERED: propofoL 200 MG/20 ML VIAL As Ordered ONE ×2 (11:18→11:49)
[2022-07-09] MEDS ORDERED: GLYCOPYRROLATE INJ 0.2 MG/ML 2 ML VIAL As Ordered ONE (11:18)
[2022-07-09] MEDS ORDERED: LIDOCAINE 2% 100MG/5ML SDV (FOR ANES.) As Ordered ONE (11:19)
[2022-07-09 12:36] VITALS: BP 109/57
[2022-07-09 14:00] VITALS: BP 108/55
[2022-07-09 16:41] VITALS: BP 105/55
[2022-07-09 20:07] VITALS: BP 120/60
[2022-07-09] MEDS: SIMVASTATIN 20 MG TAB PO SCH (20:09)
[2022-07-10 06:16] VITALS: BP 104/42
[2022-07-10] MEDS: LEVOTHYROXINE 100MCG TABLET (0.1MG) PO SCH (06:16)
[2022-07-10 06:30] LABS: HEMATOCRIT 25.6 % (36.0-47.0); HEMOGLOBIN 7.7 g/dl (12.0-15.5); MEAN CORPUSCULAR HEMOGLOBIN 29.5 pg (27.0-33.0); MEAN CORPUSCULAR HGB CONC 30.1 g/dl (32.0-36.5); MEAN CORPUSCULAR VOLUME 98.1 fl (80.0-96.0); PLATELET COUNT, AUTOMATED 32 10^3/uL (150-450); RED BLOOD COUNT 2.61 10^6/uL (4.00-5.40); WHITE BLOOD COUNT 4.6 10^3/uL (4.0-10.0)
[2022-07-10 07:00] LABS: ALBUMIN 2.1 G/DL (3.2-5.2); ALKALINE PHOSPHATASE 62 U/L (46-116); ALT/SGPT < 9 U/L (7.0-40); AST/SGOT 10 U/L (<34); BILIRUBIN,DIRECT 0.3 MG/DL (<0.4); BILIRUBIN,TOTAL 0.7 MG/DL (0.3-1.2); BLOOD UREA NITROGEN 13 MG/DL (9-23); CALCIUM LEVEL 6.7 MG/DL (8.3-10.6); CARBON DIOXIDE LEVEL 24 MMOL/L (20-31); CHLORIDE LEVEL 108 MMOL/L (98-107); GLOMERULAR FILTRATION RATE > 60.0 (>39); GLUCOSE, FASTING 58 MG/DL (74-106); MAGNESIUM LEVEL 1.9 MG/DL (1.8-2.4); PHOSPHORUS LEVEL 2.8 MG/DL (2.4-5.1); POTASSIUM SERUM 4.2 MMOL/L (3.5-5.1); SODIUM LEVEL 140 MMOL/L (136-145); TOTAL PROTEIN 4.1 G/DL (5.7-8.2)
[2022-07-10] MEDS: TIOTROPIUM INHALER/CAPSULE (SPIRIVA) INH SCH (07:25)
[2022-07-10] MEDS: SYMBICORT 160/4.5MCG INHALER 6GM INH SCH ×2 (07:25→19:36)
[2022-07-10 08:44] VITALS: BP 103/47
[2022-07-10] MEDS: D5W 1,000 ML IV SCH ×2 (08:47→22:25)
[2022-07-10] MEDS: CALCIUM/VITAMIN D 500 MG TAB PO SCH (08:48)
[2022-07-10] MEDS: MIDODRINE 5 MG TAB PO SCH ×3 (08:48→16:50)
[2022-07-10] MEDS: CALCITONIN NASAL SPRAY 3.7ML BTL SCH (08:48)
[2022-07-10] MEDS: DOCUSATE SODIUM 100MG CAPSULE PO SCH ×2 (08:48→21:00)
[2022-07-10] MEDS: FOLIC ACID 1MG TAB PO SCH (08:48)
[2022-07-10] MEDS: MAGNESIUM OXIDE 400MG TAB (MAG-OX) PO SCH (08:48)
[2022-07-10] MEDS: PANTOPRAZOLE 40MG TAB (PROTONIX) PO SCH (08:48)
[2022-07-10] MEDS: FUROSEMIDE 40 MG TAB PO SCH (08:49)
[2022-07-10] MEDS: AMIODARONE 200 MG TAB (PACERONE) PO SCH (08:49)
[2022-07-10] MEDS: DRONABINOL 2.5MG CAP (MARINOL) PO SCH ×2 (08:49→21:00)
[2022-07-10] MEDS: SIMVASTATIN 20 MG TAB PO SCH (21:00)
[2022-07-11] MEDS ORDERED: MORP1SOL5 PO (05:59)
[2022-07-11] MEDS ORDERED: HYOS125TA PO (05:59)
[2022-07-11] MEDS ORDERED: ATIV1TAB10 PO (05:59)
[2022-07-11] MEDS: LEVOTHYROXINE 100MCG TABLET (0.1MG) PO SCH (06:00)
[2022-07-11] MEDS: MIDODRINE 5 MG TAB PO SCH ×2 (08:00→11:32)
[2022-07-11] MEDS: TIOTROPIUM INHALER/CAPSULE (SPIRIVA) INH SCH (08:01)
[2022-07-11] MEDS: SYMBICORT 160/4.5MCG INHALER 6GM INH SCH (08:02)
[2022-07-11] MEDS: CALCIUM/VITAMIN D 500 MG TAB PO SCH (09:00)
[2022-07-11] MEDS: DRONABINOL 2.5MG CAP (MARINOL) PO SCH (09:00)
[2022-07-11] MEDS: MAGNESIUM OXIDE 400MG TAB (MAG-OX) PO SCH (09:00)
[2022-07-11] MEDS: PANTOPRAZOLE 40MG TAB (PROTONIX) PO SCH (09:00)
[2022-07-11] MEDS: FOLIC ACID 1MG TAB PO SCH (09:00)
[2022-07-11] MEDS: AMIODARONE 200 MG TAB (PACERONE) PO SCH (09:00)
[2022-07-11] MEDS: CALCITONIN NASAL SPRAY 3.7ML BTL SCH (09:00)
[2022-07-11] MEDS: DOCUSATE SODIUM 100MG CAPSULE PO SCH (09:00)
[2022-07-18] MEDS ORDERED: VITAMIN D 50,000 UNITS CAPSULE (ERGOCALCIFEROL 1.25MG) PO SCH (09:00)
== END 2022-07-11 12:45 | disposition hospice, home (50) | DRG 690 ==
LOC: M ED 12:26 → M ED INP 15:19 → ENRESERV 16:29 → M MSPAV 17:08
PROVIDERS: ADMIT Student in an Organized Health Care Education/Training Program; ATTEND Internal Medicine
DX: N39.0 Urinary tract infection, site not specified (principal); N17.9 Acute kidney failure, unspecified; I50.32 Chronic diastolic (congestive) heart failure; I13.0 Hypertensive heart and chronic kidney disease with heart failure and stage 1 through stage 4 chronic kidney disease, or unspecified chronic kidney disease; D61.818 Other pancytopenia; R53.81 Other malaise; I48.0 Paroxysmal atrial fibrillation; K22.2 Esophageal obstruction; D46.9 Myelodysplastic syndrome, unspecified; K21.9 Gastro-esophageal reflux disease without esophagitis; J44.9 Chronic obstructive pulmonary disease, unspecified; R62.7 Adult failure to thrive; D69.2 Other nonthrombocytopenic purpura; E78.5 Hyperlipidemia, unspecified; E89.0 Postprocedural hypothyroidism; E55.9 Vitamin D deficiency, unspecified; M81.0 Age-related osteoporosis without current pathological fracture; R13.10 Dysphagia, unspecified; I95.1 Orthostatic hypotension; Z88.0 Allergy status to penicillin; Z88.2 Allergy status to sulfonamides; Z88.8 Allergy status to other drugs, medicaments and biological substances; Z79.899 Other long term (current) drug therapy; K44.9 Diaphragmatic hernia without obstruction or gangrene; N20.0 Calculus of kidney; R31.9 Hematuria, unspecified; Z66 Do not resuscitate; Z87.891 Personal history of nicotine dependence; E16.2 Hypoglycemia, unspecified; M10.9 Gout, unspecified; N18.30 Chronic kidney disease, stage 3 unspecified